=== PATIENT | female | born 1950 | race Caucasian/White ===

== ENCOUNTER 2018-01-18 13:50 | Emergency (ER) | payer MEDICARE, OTHER ==
[~2018-01-18] VITALS: Ht 157.5 cm; Wt 130.0 kg
[~2018-01-18 13:50] MED LIST: ACET-1693 PO; BP MED PO; CIPR-255 PO; ERGO500037 PO; FENO145T26 PO; FRS/40 PO; INSUINJ4 SQ; LUTE6TAB PO; MILK1CAP9 PO; NVLGI SC; NZRCR EXT; OMEG-112 PO; PANT40TA PO; VENL75CA73 PO
[2018-01-18 14:00] VITALS: Ht 157.5 cm; Wt 130.0 kg
--- NOTE | 2018-01-18 14:26 | EMERGENCY ROOM VISIT NOTE ---
History Report prepared by Anh: Cliff Romo Under the Supervision of: Dr. Osmar Mendez M.D. First contact with patient: 14:09 Chief Complaint: SWELLING TO EXTREMITY Stated Complaint: SWELLING IN LEGS AND HANDS History of Present Illness The patient is a 67 year old white female with a past medical history of DM2, CONDE, HTN, GERD, HLD, left ankle fusion three years ago, cholecystectomy, and appendectomy who presents to the ED with a cc of on and off leg swelling beginning a week ago which got red today. Positive itchiness. Negative fever, chills, leg pain, nausea, vomiting, and any recent traumas. She takes fluid pills in the morning and night, and she has not missed any doses, and there has been no changes recently. A week and a half ago she finished a round of doxycycline for a sinus infection. She has been following up with her GI, and she has no changes in medications She has not taken anything for the pain. The patient also notes that she started taking prednisone a few weeks ago but it was stopped two weeks ago. She recently had a long car ride. She has no history of blood clots in her legs or lungs, and she has no chest pain or shortness of breath. Source of History: patient Onset: a week ago Position: ankle (left) Quality: other (swelling and redness) Timing: other (on and off) Associated Symptoms: No fevers, No chills, No chest pain, No SOB, No nausea , No vomiting Note: Associated symptoms: Itchiness Review of Systems See HPI for pertinent positives and negatives. A total of ten systems were reviewed and were otherwise negative. Past Medical & Surgical Medical Problems: (1) Diabetes Family History Patient reports no known family medical history. Social History Smoking Status: Former Smoker Drug Use: none Housing Status: lives with family Occupation Status: retired Current/Historical Medications Scheduled Ciprofloxacin Hcl (Cipro), 1 TAB PO BID Clindamycin Hcl (Cleocin), 450 MG PO TID Ergocalciferol (Vitamin D 17881 Unit), 50,000 UNIT PO EVERY 2 WEEKS Fenofibrate (Tricor ), 145 MG PO DAILY Furosemide (Lasix), 40 MG PO BID Insulin Aspart (Novolog), 0 SC AC Insulin Glargine (Lantus Solostar Pen), 40 UNIT SQ AMPM Ketoconazole (Ketoconazole), 1 APPLN EXT BID Lutein-Zeaxanthin (Lutein W/Zeaxanthin), 1 TAB PO DAILY Milk Thistle (Silybum Marianum (Milk Thistle), 2,000 MG PO BID Ufsbh-9-Dool Ethyl Esters ([place]-3), 2 CAP PO BID Pantoprazole (Protonix), 40 MG PO DAILY Venlafaxine Hcl (Venlafaxine Extended Rel), 75 MG PO DAILY [Bp Med], 1 TAB PO DAILY Scheduled PRN Acetaminophen Tab (Tylenol), 650 MG PO Q6 PRN for Pain or Fever Allergies Coded Allergies: No Known Allergies (Unverified , 01/18/18) Physical Exam Vital Signs Date Time Temp Pulse Resp B/P (MAP) Pulse Ox O2 Delivery O2 Flow Rate FiO2 01/18/18 16:38 83 22 113/29 93 Room Air 01/18/18 16:08 127/57 01/18/18 16:06 88 23 90/37 96 Room Air 01/18/18 14:00 36.5 87 20 114/70 95 Room Air Physical Exam GENERAL: Awake, alert, well-appearing, NAD, obese, wearing glasses HENT: Normocephalic, atraumatic. EYES: Normal conjunctiva. Sclera non-icteric. PERRL. No anisocoria. NECK: Supple. No nuchal rigidity. FROM. RESPIRATORY: CTAB, no rhonchi, wheezing, crackles CARDIAC: RRR, no MRG ABDOMEN: Soft, NTND, BS+ MSK: No chest wall TTP, LLE has diffuse erythema with 3-4+ pitting edema. No calf pain. Negative Juanito's sign. No pain with palpation. Mildly pruritic. Erythema is blanching and shortened compared to the RLE. LLE is larger than the RLE. RLE has 2+ pitting edema. NEURO: GCS 15, CN 2-12 intact, moves all 4s on command SKIN: No rash or jaundice noted. Medical Decision & Procedures ER Provider Diagnostic Interpretation: Radiology results as stated below per my review and radiologist interpretation: LEFT LOWER EXTREMITY VENOUS DOPPLER HISTORY: LLE swelling, prior ankle fuision, L>R, recent 8 hr trip to [place] COMPARISON STUDY: None. FINDINGS: There is normal compressibility, flow, and augmentation within the left lower extremity deep venous system. Lower extremity subcutaneous edema is most pronounced within the ankle. IMPRESSION: No DVT within the left lower extremity. Electronically signed by: Duran Adhikari M.D. 01/18/2018 3:39 PM Dictated Date/Time: 01/18/2018 3:39 PM Laboratory Results 01/18/18 14:39 Red Blood Count 3.34, Mean Corpuscular Volume 101.5, Mean Corpuscular Hemoglobin 33.2, Mean Corpuscular Hemoglobin Concent 32.7, Mean Platelet Volume 9.7, Neutrophils (%) (Auto) 66.4, Lymphocytes (%) (Auto) 24.7, Monocytes (%) ( Auto) 7.1, Eosinophils (%) (Auto) 1.2, Basophils (%) (Auto) 0.2, Neutrophils # ( Auto) 3.45, Lymphocytes # (Auto) 1.28, Monocytes # (Auto) 0.37, Eosinophils # ( Auto) 0.06, Basophils # (Auto) 0.01 01/18/18 14:39 Test 01/18/18 14:39 White Blood Count 5.19 K/uL (4.8-10.8) Red Blood Count 3.34 M/uL (4.2-5.4) Hemoglobin 11.1 g/dL (12.0-16.0) Hematocrit 33.9 % (37-47) Mean Corpuscular Volume 101.5 fL (80-100) Mean Corpuscular Hemoglobin 33.2 pg (25-34) Mean Corpuscular Hemoglobin Concent 32.7 g/dl (32-36) Platelet Count 310 K/uL (130-400) Mean Platelet Volume 9.7 fL (7.4-10.4) Neutrophils (%) (Auto) 66.4 % Lymphocytes (%) (Auto) 24.7 % Monocytes (%) (Auto) 7.1 % Eosinophils (%) (Auto) 1.2 % Basophils (%) (Auto) 0.2 % Neutrophils # (Auto) 3.45 K/uL (1.4-6.5) Lymphocytes # (Auto) 1.28 K/uL (1.2-3.4) Monocytes # (Auto) 0.37 K/uL (0.11-0.59) Eosinophils # (Auto) 0.06 K/uL (0-0.5) Basophils # (Auto) 0.01 K/uL (0-0.2) RDW Standard Deviation 56.0 fL (36.4-46.3) RDW Coefficient of Variation 15.2 % (11.5-14.5) Immature Granulocyte % (Auto) 0.4 % Immature Granulocyte # (Auto) 0.02 K/uL (0.00-0.02) Prothrombin Time 11.1 SECONDS (9.0-12.0) Prothromb Time International Ratio 1.1 (0.9-1.1) Activated Partial Thromboplast Time 24.7 SECONDS (21.0-31.0) Partial Thromboplastin Ratio 1.0 Anion Gap 5.0 mmol/L (3-11) Est Creatinine Clear Calc Drug Dose 36.0 ml/min Estimated GFR () 30.4 Estimated GFR (Non- 26.3 BUN/Creatinine Ratio 10.9 (10-20) Calcium Level 9.7 mg/dl (8.5-10.1) Magnesium Level mg/dl (1.8-2.4) Total Bilirubin 0.6 mg/dl (0.2-1) Direct Bilirubin mg/dl (0-0.2) Aspartate Amino Transf (AST/SGOT) U/L (15-37) Alanine Aminotransferase (ALT/SGPT) 40 U/L (12-78) Alkaline Phosphatase 63 U/L (45-117) Total Protein 7.3 gm/dl (6.4-8.2) Albumin 3.0 gm/dl (3.4-5.0) Lipase 172 U/L (73-393) Laboratory results reviewed by me Medications Administered Medications (Trade) Dose Ordered Sig/Taina Route Start Time Stop Time Status Last Admin Dose Admin Diphenhydramine HCl (Benadryl Cap) 25 mg NOW ONCE PO 01/18/18 16:15 01/18/18 16:16 DC 01/18/18 16:15 25 MG Clindamycin Phosphate 600 mg/ Dextrose 54 ml @ 100 mls/hr ONE ONCE IV 01/18/18 16:15 01/18/18 16:47 01/18/18 16:15 100 MLS/HR ED Course 1409: The patient was evaluated in room C8. A complete history and physical exam was performed. 1626: I reevaluated the patient, and I updated her on the results. 1705: I reevaluated the patient. Discussed results and discharge instructions: she verbalized understanding and agreement. The patient is ready for discharge. Medical Decision Nursing notes reviewed. Ancillary studies and prior records reviewed. The patient is a 67 year old white female with a past medical history of DM2, CONDE, HTN, GERD, HLD, left ankle fusion three years ago, cholecystectomy, and appendectomy who presents to the ED with a cc of on and off leg swelling beginning a week ago which got red today. Differential diagnosis: Etiologies such as DVT, musculoskeletal, infection, joint effusion, trauma, lymphedema, idiopathic, cellulitis, abscess, MRSA infection, necrotizing fasciitis, dermatitis, drug eruption, as well as others were entertained.. Patient was seen and evaluated the bedside. Patient is noticed some worsening bilateral lower extremity swelling but worst in the left. Patient does have some persistent swelling from prior history of Conde and does take a diuretic. She takes this 40 mg twice daily Lasix. Patient denies any shortness of breath or chest pain. Patient did recently travel to [place] and approximate was in the car for 8 hours. No prior history of DVT or PE. Patient has had a prior left lower extremity ankle fracture and so does have some persistent left lower extremity greater than right lower extremity swelling. Patient did have blood work completed along with a DVT ultrasound. DVT ultrasound was negative. The patient's left lower extremity was placed in Roly wrap. She was given a first dose of antibiotics given that she does have a left lower extremity cellulitis. Patient does not complain of any pain in her left lower extremity just itching. Patient was also given some Benadryl. Patient's white blood cell count is within normal limits. Patient was told that she does have some CKD. For per priors her creat was 1.5 approximately 3 years ago today is 1.9. This is likely chronic change. Patient was told to wrap her left lower extremity to elevated. Patient was told to continue taking her antibiotics as prescribed. Patient was told that she may take an extra dose of her Lasix if she does notice weight gain and persistent swelling. Patient was told to follow-up with her PCP and return if she any worsening symptoms. Patient was given strict follow-up, discharge, and return precautions. All questions were answered. Patient was deemed suitable for outpatient follow-up at this time. Patient agreed with the plan of care and was safely discharged home. Medication Reconcilliation Current Medication List: was personally reviewed by me Blood Pressure Screening Patient's blood pressure: Normal blood pressure Impression Primary Impression: Swelling of left extremity Additional Impressions: Cellulitis CKD (chronic kidney disease) Anemia Scribe Attestation The scribe's documentation has been prepared under my direction and personally reviewed by me in its entirety. I confirm that the note above accurately reflects all work, treatment, procedures, and medical decision making performed by me. Departure Information Dispostion Home / Self-Care Prescriptions Clindamycin Hcl (CLEOCIN) 150 Mg Cap 450 MG PO TID for 5 Days, #45 CAP Prov: Osmar Mendez M.D. 01/18/18 Referrals Danilo Page M.D. (PCP) Forms HOME CARE DOCUMENTATION FORM, IMPORTANT VISIT INFORMATION, WORK / SCHOOL INSTRUCTIONS Patient Instructions Cellulitis - [facility], ED Leg Swelling Unilateral, ED RICE, [facility] Additional Instructions Please return to the emergency department if you have worsening or recurrent symptoms not amenable to at-home treatment. Please call for a follow-up appointment with her primary care physician. Please take your medications as prescribed. If you have other concerns and/or complaints please feel free to also call your primary care physician's office or return the ED for further evaluation, management, and treatment. Please follow-up for your chronic kidney disease. You may take her Lasix as prescribed. If you do you may take an extra dose but for no more than 2 consecutive days if he still have persistent swelling and weight gain. Please continue to wrap your lower extremities to help with lower externally swelling. Keep them propped up when you are sitting down. Take your medications as prescribed. If taking an antibiotic consider taking a probiotic and/or eating yogurt, but at the least, please take with food as it can cause upset stomach. You have been examined and treated today on an emergency basis only. This is not a substitute for, or an effort to provide, complete comprehensive medical care. It is impossible to recognize and treat all injuries or illnesses in a single emergency department visit. It is therefore important that you follow up closely with [facility], your PCP, and/or your specialist(s). Call as soon as possible for an appointment. Thank you for your time and consideration. I look forward to speaking with you again soon. Please don't hesitate to call us if you have any questions. Problem Qualifiers Additional Impressions: Cellulitis Site of cellulitis: extremity Site of cellulitis of extremity: lower extremity Laterality: left Qualified Codes: L03.116 - Cellulitis of left lower limb CKD (chronic kidney disease) Chronic kidney disease stage: stage 3 (moderate) Qualified Codes: N18.3 - Chronic kidney disease, stage 3 (moderate) Anemia Anemia type: unspecified type Qualified Codes: D64.9 - Anemia, unspecified
[2018-01-18 14:53] LABS: BASO % 0.2 %; BASO ABS # 0.01 K/uL (0-0.2); EOS % 1.2 %; EOS ABS # 0.06 K/uL (0-0.5); HEMATOCRIT 33.9 % (37-47); HEMOGLOBIN 11.1 g/dL (12.0-16.0); IG# 0.02 K/uL (0.00-0.02); LYMPH % 24.7 %; LYMPH ABS # 1.28 K/uL (1.2-3.4); MEAN CELL VOLUME 101.5 fL (80-100); MEAN CORPUSCULAR HEMOGLOBIN 33.2 pg (25-34); MEAN CORPUSCULAR HGB CONC 32.7 g/dl (32-36); MEAN PLATELET VOLUME 9.7 fL (7.4-10.4); MONO % 7.1 %; MONO ABS # 0.37 K/uL (0.11-0.59); NEUT % 66.4 %; NEUT ABS # 3.45 K/uL (1.4-6.5); PLATELET COUNT 310 K/uL (130-400); RED CELL DISTRIBUTION WIDTH CV 15.2 % (11.5-14.5); WHITE BLOOD COUNT 5.19 K/uL (4.8-10.8)
[2018-01-18 15:01] LABS: INR 1.1 (0.9-1.1); PTT PATIENT 24.7 SECONDS (21.0-31.0)
[2018-01-18 15:26] LABS: CALCIUM 9.7 mg/dl (8.5-10.1); CREATININE 1.91 mg/dl (0.60-1.20); TOTAL PROTEIN 7.3 gm/dl (6.4-8.2)
--- NOTE | 2018-01-18 15:41 | DIAGNOSTIC IMAGING REPORT ---
LEFT LOWER EXTREMITY VENOUS DOPPLER HISTORY: LLE swelling, prior ankle fuision, L>R, recent 8 hr trip to [place] COMPARISON STUDY: None. FINDINGS: There is normal compressibility, flow, and augmentation within the left lower extremity deep venous system. Lower extremity subcutaneous edema is most pronounced within the ankle. IMPRESSION: No DVT within the left lower extremity. Electronically signed by: Duran Adhikari M.D. 01/18/2018 3:39 PM Dictated Date/Time: 01/18/2018 3:39 PM
[2018-01-18] MEDS ORDERED: CLINDAMYCIN IV 600 MG in DEXTROSE 5% 50ML 50 ML IV ONE (16:15)
[2018-01-18] MEDS ORDERED: CLIN150C PO (16:46)
[2018-01-18] MEDS ORDERED: PROM25TA9 PO (17:10)
[2018-01-18] MEDS ORDERED: MULT-190 PO (17:10)
[2018-01-18] MEDS ORDERED: VENL75TA4 PO (17:10)
[2018-01-18] MEDS ORDERED: VALS-58 PO (17:10)
[2018-01-18] MEDS ORDERED: INSDGIPEN SC (17:13)
[2018-01-18] MEDS ORDERED: NVLGI/PEN (17:13)
[2018-01-18 17:39] VITALS: BP 142/60; PULSE 88; TEMP 36.5; O2SAT 93
== END 2018-01-18 17:40 | disposition home or self-care (01) ==
LOC: C.EDB 13:51 → C.EDC 17:40
DX: M79.89 Other specified soft tissue disorders (principal); L03.116 Cellulitis of left lower limb; N18.3 Chronic kidney disease, stage 3 (moderate); D64.9 Anemia, unspecified; E11.9 Type 2 diabetes mellitus without complications; Z87.891 Personal history of nicotine dependence; Z79.4 Long term (current) use of insulin

== ENCOUNTER 2018-01-24 12:22 | Emergency (ER) | payer MEDICARE ==
[~2018-01-24 12:22] MED LIST changes: -BP MED PO; -CIPR-255 PO; +CLIN150C PO; -FENO145T26 PO; +INSDGIPEN SC; -INSUINJ4 SQ; -LUTE6TAB PO; +MULT-190 PO; -NVLGI SC; +NVLGI/PEN; -NZRCR EXT; -OMEG-112 PO; +PROM25TA9 PO; +VALS-58 PO; -VENL75CA73 PO; +VENL75TA4 PO
[2018-01-24 12:24] VITALS: Ht 157.5 cm
--- NOTE | 2018-01-24 13:27 | EMERGENCY ROOM VISIT NOTE ---
History Report prepared by Anh: Anabelle Strong Under the Supervision of: Dr. Arnie Constantino M.D. First contact with patient: 12:44 Chief Complaint: SWELLING TO EXTREMITY Stated Complaint: SWELLING IN LEGS History of Present Illness The patient is a 67 year old female who presents to the Emergency Room with complaints of constant swelling in legs starting a week ago. The patient states that she was here on or Tuesday for the same thing. She reports that she had normal blood work and normal ultrasound. She states that she was given IV antibiotics and sent home on the oral version of the same one. She states that she was told to return to the ED if the symptoms did not improve within 4 days. The patient states that it has started oozing on her left leg and has gotten worse on the right leg. She notes that since the swelling started she has had severe dry skin. She states that it is very itchy. She reports that she tried using Benadryl spray with no relief, but got some relief from using the [place] spray. The patient notes that she did not follow up with her PCP, but has lost 17 lbs since being here last week. She notes that she did not change her dosage of Lasix and takes them in the morning and the evening. The patient complains of slight diarrhea, but thinks it is from antibiotics. The patient denies chest pain, shortness of breath, fevers, chills, nausea, and vomiting. The patient notes a history of Diabetes. Source of History: patient Onset: a week ago Position: leg (bilateral) Quality: other (swelling) Timing: constant Associated Symptoms: + diarrhea, No fevers, No chills, No chest pain, No SOB , No nausea, No vomiting Note: The patient complains of her left leg oozing and dry skin. Review of Systems See HPI for pertinent positives and negatives. A total of ten systems were reviewed and were otherwise negative. Past Medical & Surgical Medical Problems: (1) Diabetes (2) GERD (gastroesophageal reflux disease) (3) HTN (hypertension) (4) MCKENZIE (nonalcoholic steatohepatitis) Family History Patient reports no known family medical history. Social History Smoking Status: Never Smoker Drug Use: none Housing Status: lives with family Occupation Status: retired Current/Historical Medications Scheduled Clotrimazole Vaginal (Clotrimazole), 1 APPLN TOP BID Ergocalciferol (Vitamin D 07300 Unit), 50,000 UNIT PO EVERY 2 WEEKS Furosemide (Lasix), 40 MG PO BID Insulin Glargine (Lantus Solostar), 60 UNITS SC AMPM Milk Thistle (Silybum Marianum (Milk Thistle), 2,000 MG PO BID Ocuvite Preservision (Ocuvite Preservision), 1 TAB PO DAILY Pantoprazole (Protonix), 40 MG PO DAILY Saccharomyces Boulardii (Florastor), 1 CAP PO BID Sulfamethoxazole-Trimethoprim (Bactrim Ds 800MG/160MG), 1 TAB PO BID Valsartan (Valsartan), 160 MG PO HS Venlafaxine Hcl (Effexor), 75 MG PO QAM Scheduled PRN Acetaminophen Tab (Tylenol), 650 MG PO Q6 PRN for Pain or Fever Diphenhydramine Hcl (Sleep) (Diphenhydramine Hcl), 1 TAB PO QID PRN for Itching Promethazine Hcl (Phenergan), 25 MG PO Q6H PRN for Nausea Ranitidine Hcl (Zantac), 150 MG PO BID PRN for Itching Miscellaneous Medications Insulin Aspart (Novolog Flexpen) Allergies Coded Allergies: No Known Allergies (Unverified , 01/24/18) Physical Exam Vital Signs Date Time Temp Pulse Resp B/P (MAP) Pulse Ox O2 Delivery O2 Flow Rate FiO2 01/24/18 18:19 82 18 142/73 98 01/24/18 16:40 83 24 156/60 97 Room Air 01/24/18 16:00 36.7 91 17 110/59 96 01/24/18 12:24 36.5 92 18 112/47 94 Room Air Physical Exam GENERAL: Awake, alert, well-appearing, in no distress HENT: Normocephalic, atraumatic. Dry mucus membranes. EYES: Normal conjunctiva. Sclera non-icteric. NECK: Supple. No nuchal rigidity. FROM. No JVD. RESPIRATORY: Clear to auscultation. CARDIAC: Regular rate, normal rhythm. Extremities warm and well perfused. Pulses equal. ABDOMEN: Soft, non-distended. No tenderness to palpation. No rebound or guarding. No masses. RECTAL: Deferred. MUSCULOSKELETAL: Chest examination reveals no tenderness. The back is symmetrical on inspection without obvious abnormality. There is no CVA tenderness to palpation. No joint edema. LOWER EXTREMITIES: Calves are equal size bilaterally and non-tender. 2+ edema with mild erythema and warmth. NEURO: Normal sensorium. No sensory or motor deficits noted. SKIN: No rash or jaundice noted. Medical Decision & Procedures Laboratory Results 01/24/18 13:25 Red Blood Count 3.18, Mean Corpuscular Volume 102.5, Mean Corpuscular Hemoglobin 33.0, Mean Corpuscular Hemoglobin Concent 32.2, Mean Platelet Volume 9.6, Neutrophils (%) (Auto) 54.7, Lymphocytes (%) (Auto) 31.3, Monocytes (%) ( Auto) 11.4, Eosinophils (%) (Auto) 1.6, Basophils (%) (Auto) 0.5, Neutrophils # (Auto) 3.07, Lymphocytes # (Auto) 1.76, Monocytes # (Auto) 0.64, Eosinophils # ( Auto) 0.09, Basophils # (Auto) 0.03 01/24/18 13:25 Test 01/24/18 13:25 01/24/18 16:38 White Blood Count 5.62 K/uL (4.8-10.8) Red Blood Count 3.18 M/uL (4.2-5.4) Hemoglobin 10.5 g/dL (12.0-16.0) Hematocrit 32.6 % (37-47) Mean Corpuscular Volume 102.5 fL (80-100) Mean Corpuscular Hemoglobin 33.0 pg (25-34) Mean Corpuscular Hemoglobin Concent 32.2 g/dl (32-36) Platelet Count 340 K/uL (130-400) Mean Platelet Volume 9.6 fL (7.4-10.4) Neutrophils (%) (Auto) 54.7 % Lymphocytes (%) (Auto) 31.3 % Monocytes (%) (Auto) 11.4 % Eosinophils (%) (Auto) 1.6 % Basophils (%) (Auto) 0.5 % Neutrophils # (Auto) 3.07 K/uL (1.4-6.5) Lymphocytes # (Auto) 1.76 K/uL (1.2-3.4) Monocytes # (Auto) 0.64 K/uL (0.11-0.59) Eosinophils # (Auto) 0.09 K/uL (0-0.5) Basophils # (Auto) 0.03 K/uL (0-0.2) RDW Standard Deviation 54.3 fL (36.4-46.3) RDW Coefficient of Variation 14.6 % (11.5-14.5) Immature Granulocyte % (Auto) 0.5 % Immature Granulocyte # (Auto) 0.03 K/uL (0.00-0.02) Anion Gap 6.0 mmol/L (3-11) Estimated GFR () 30.6 Estimated GFR (Non- 26.4 BUN/Creatinine Ratio 15.7 (10-20) Calcium Level 9.6 mg/dl (8.5-10.1) Total Bilirubin 0.5 mg/dl (0.2-1) Direct Bilirubin 0.2 mg/dl (0-0.2) Aspartate Amino Transf (AST/SGOT) 23 U/L (15-37) Alanine Aminotransferase (ALT/SGPT) 27 U/L (12-78) Alkaline Phosphatase 57 U/L (45-117) Troponin I < 0.015 ng/ml (0-0.045) Pro-B-Type Natriuretic Peptide 258 pg/ml (0-900) Total Protein 7.5 gm/dl (6.4-8.2) Albumin 3.1 gm/dl (3.4-5.0) Lipase 177 U/L (73-393) Bedside Glucose 216 mg/dl (70-90) Laboratory results reviewed by me Medications Administered Medications (Trade) Dose Ordered Sig/Taina Route Start Time Stop Time Status Last Admin Dose Admin Doxycycline Hyclate (Vibramycin Cap) 100 mg ONE STAT PO 01/24/18 14:49 01/24/18 14:51 DC 01/24/18 15:53 100 MG Clotrimazole (Lotrimin 1% Crm) 1 appln NOW STAT EXT 01/24/18 14:50 01/24/18 14:52 DC 01/24/18 15:53 1 APPLN Amoxicillin (Amoxicillin Susp) 17.5 ml 1449 PO 01/24/18 14:49 01/24/18 19:10 DC 01/24/18 15:53 17.5 ML Dexamethasone Sodium Phosphate (Dexamethasone Inj Pf) 10 mg NOW STAT IM 01/24/18 16:33 01/24/18 16:36 DC 01/24/18 16:41 10 MG Diphenhydramine HCl (Benadryl Inj) 25 mg NOW STAT IM 01/24/18 16:33 01/24/18 16:36 DC 01/24/18 16:41 25 MG Ranitidine HCl (zANTac TAB) 150 mg NOW ONCE PO 01/24/18 18:15 01/24/18 18:16 DC 01/24/18 18:14 150 MG ED Course 1246: The patient was evaluated in room B6. A complete history and physical exam was performed. 1505: I reevaluated the patient and she does not want any testing done. Discussed results and discharge instructions: She verbalized understanding and agreement. The patient is ready for discharge. 1628: The patient returned to the ED for an allergic reaction. Upon reevaluation , the patient has hives. We are going to watch her for a while and if she gets better, she will be discharged home. 1814: I reevaluated the patient and she is resting comfortably. Discussed results and discharge instructions: She verbalized understanding and agreement. The patient is ready for discharge. Medical Decision I reviewed the patient's past medical history, medications, and the nursing notes as described above. Differential diagnosis: Etiologies such as cellulitis, abscess, MRSA infection, DVT, necrotizing fasciitis, dermatitis, drug eruption, as well as others were entertained. The patient is a 67 y/o woman with a pmhx of IDDM2, HTN, MCKENZIE, lower extremity edema who presents to the emergency department with persistent swelling and redness to lower legs after being seen in the ED on 01/18 treated for cellulitis with IV then PO Clindamycin per HPI. Of note, the patient had negative duplex on 01/18. On arrival the patient is in NAD, AFVSS. 2+ edema with mild erythema and warmth, also with scaly plaques and desquamation of feet c/w tinea. WBC, Troponin, BNP wnl. Patient refusing CXR and EKG. Plan to change coverage initially to Amoxicillin and doxycycline however upon discharge patient began to have sx of allergic reaction including pruritis with patches of urticaria and report of lip swelling. Lungs clear without oropharyngeal edema. Given Dexamethasone and Benadryl with good effect and resolution of sx. Unclear etiology to allergic reaction. Likely Amox given patient reports taking Doxy in the past. Thus, abx changed to Bactrim only. Will also treat topically for tinea. Wound clinic referral to help with management of edema/cellulitis. Findings and plan for follow-up reviewed with patient. Patient agreeable and d/c 'd per discharge instructions. Medication Reconcilliation Current Medication List: was personally reviewed by me Blood Pressure Screening Patient's blood pressure: Low blood pressure Blood pressure disposition: Did not require urgent referral Impression Primary Impression: Bilateral cellulitis of lower leg Additional Impressions: Tinea pedis Bilateral lower extremity edema Allergic reaction Scribe Attestation The scribe's documentation has been prepared under my direction and personally reviewed by me in its entirety. I confirm that the note above accurately reflects all work, treatment, procedures, and medical decision making performed by me. Departure Information Dispostion Home / Self-Care Prescriptions Diphenhydramine Hcl (Sleep) (DIPHENHYDRAMINE HCL) 50 Mg Tab 1 TAB PO QID Y for Itching for 7 Days, #30 TAB Prov: Arnie Constantino M.D. 01/24/18 Ranitidine Hcl (ZANTAC) 150 Mg Tab 150 MG PO BID Y for Itching for 7 Days, #14 TAB Prov: Arnie Constantino M.D. 01/24/18 Sulfamethoxazole-Trimethoprim (Bactrim Ds 800MG/160MG) 1 Tab Tab 1 TAB PO BID for 10 Days, #20 TAB Prov: Arnie Constantino M.D. 01/24/18 Clotrimazole Vaginal (CLOTRIMAZOLE) 1 % Cre 1 APPLN TOP BID for 10 Days, #1 TUBE Prov: Arnie Constantino M.D. 01/24/18 Saccharomyces Boulardii (Florastor) 250 Mg Cap 1 CAP PO BID for 10 Days, #20 CAP Prov: Arnie Constantino M.D. 01/24/18 Referrals No Doctor, Assigned (PCP) Forms HOME CARE DOCUMENTATION FORM, IMPORTANT VISIT INFORMATION, WORK / SCHOOL INSTRUCTIONS Patient Instructions ED Infec Skin Cellulitis, ED Infec Skin Fungal Tinea, My [facility] Additional Instructions Please follow up with your primary care physician and wound clinic in the next 1 -3 days for re-evaluation. You have a bacterial skin infection with a likely superimposed fungal infection. Otherwise, your exam and lab results did not show signs of an emergent condition at this time. Discontinue your current antibiotic. Begin Bactrim as prescribed. Florastor, probiotic, to help prevent antibiotic associated diarrhea. Continue your Lasix as prescribed. Use compression stockings or Roly bandages to help with swelling and elevate your legs whenever possible. Zantac and Benadryl as directed as needed for any itching or rash. Return to the emergency department for worsening symptoms as described in the accompanying instructions. Problem Qualifiers
[2018-01-24 13:32] LABS: BASO % 0.5 %; BASO ABS # 0.03 K/uL (0-0.2); EOS % 1.6 %; EOS ABS # 0.09 K/uL (0-0.5); HEMATOCRIT 32.6 % (37-47); HEMOGLOBIN 10.5 g/dL (12.0-16.0); IG# 0.03 K/uL (0.00-0.02); LYMPH % 31.3 %; LYMPH ABS # 1.76 K/uL (1.2-3.4); MEAN CELL VOLUME 102.5 fL (80-100); MEAN CORPUSCULAR HGB CONC 32.2 g/dl (32-36); MEAN PLATELET VOLUME 9.6 fL (7.4-10.4); MONO % 11.4 %; MONO ABS # 0.64 K/uL (0.11-0.59); NEUT % 54.7 %; NEUT ABS # 3.07 K/uL (1.4-6.5); PLATELET COUNT 340 K/uL (130-400); RED CELL DISTRIBUTION WIDTH CV 14.6 % (11.5-14.5); RED CELL DISTRIBUTION WIDTH SD 54.3 fL (36.4-46.3); WHITE BLOOD COUNT 5.62 K/uL (4.8-10.8)
[2018-01-24 13:49] LABS: ALBUMIN 3.1 gm/dl (3.4-5.0); ALT/SGPT 27 U/L (12-78); AST/SGOT 23 U/L (15-37); BLOOD UREA NITROGEN 30 mg/dl (7-18); CALCIUM 9.6 mg/dl (8.5-10.1); CARBON DIOXIDE 31 mmol/L (21-32); GLUCOSE 164 mg/dl (70-99); LIPASE 177 U/L (73-393); POTASSIUM 4.2 mmol/L (3.5-5.1); SODIUM 136 mmol/L (136-145)
[2018-01-24 13:54] LABS: ALKALINE PHOSPHATASE 57 U/L (45-117); TOTAL PROTEIN 7.5 gm/dl (6.4-8.2)
[2018-01-24] MEDS ORDERED: AMOXICILLIN SUSP 250 MG/5 ML 100 ML BTL PO SCH (14:49)
[2018-01-24] MEDS ORDERED: DOXYCYCLINE HYCLATE 100 MG CAP PO STA (14:49)
[2018-01-24] MEDS ORDERED: AMOXICILLIN 250 MG CAP PO STA (14:49)
[2018-01-24] MEDS ORDERED: CLOTRIMAZOLE 1% CR 15 GM TUBE EXT STA (14:50)
[2018-01-24] MEDS ORDERED: AMX875 PO (14:57)
[2018-01-24] MEDS ORDERED: DXY100 PO (14:57)
[2018-01-24] MEDS ORDERED: SACC250C3 PO (14:57)
[2018-01-24] MEDS ORDERED: CLOT1CRE3 TOP (15:09)
[2018-01-24 16:00] VITALS: TEMP 36.7
[2018-01-24] MEDS ORDERED: DEXAMETHASONE **PF** INJ 10 MG/ML VIAL IM STA (16:33)
[2018-01-24] MEDS ORDERED: DiphenhydrAMINE HCL 50 MG/ML VIAL IM STA (16:33)
[2018-01-24] MEDS ORDERED: SULF800T23 PO (18:09)
[2018-01-24] MEDS ORDERED: DIPH50TA10 PO (18:12)
[2018-01-24] MEDS ORDERED: RANI150T3 PO (18:12)
[2018-01-24] MEDS ORDERED: RANITIDINE HCL 150 MG TAB PO ONE (18:15)
[2018-01-24 18:19] VITALS: BP 142/73; PULSE 82; O2SAT 98
== END 2018-01-24 18:21 | disposition home or self-care (01) ==
LOC: C.EDB 12:23
DX: L03.115 Cellulitis of right lower limb (principal); L03.116 Cellulitis of left lower limb; B35.3 Tinea pedis; T78.40XA Allergy, unspecified, initial encounter; X58.XXXA Exposure to other specified factors, initial encounter; E11.9 Type 2 diabetes mellitus without complications; K21.9 Gastro-esophageal reflux disease without esophagitis; I10 Essential (primary) hypertension; K75.81 Nonalcoholic steatohepatitis (NASH); Z79.4 Long term (current) use of insulin; Z79.899 Other long term (current) drug therapy

== ENCOUNTER 2022-05-19 13:27 | Inpatient (IN) ==
[2022-05-19] MEDS ORDERED: ONDANSETRON INJ 2 MG/ML 2 ML VIAL IV STA (15:16)
[2022-05-19] MEDS ORDERED: SODIUM CHLORIDE 0.9% 1000ML 500 ML IV ONE (15:16)
--- NOTE | 2022-05-19 15:36 | Emergency Department Note ---
Impression & Plan Hypercalcemia, CKD (chronic kidney disease) stage 3, GFR 30-59 ml/min, Breast cancer, Weakness ED Provider Note Provider: Jose G Stanford MD DATE OF SERVICE: 05/19/2022 CHIEF COMPLAINT: High calcium, decreased appetite, dizzy HISTORY OF PRESENT ILLNESS: Patient is a 72-year-old female history of left- sided breast cancer, Conde, GERD, CKD, hypertension, type 2 diabetes on insulin presenting here today referred by her outpatient doctors office. Had basic routine blood work 2 days ago. Following with oncology in [place] for breast cancer. Currently on chemotherapy and estrogen options with this. Noted to have a high calcium level on Tuesday blood work. Yesterday not really eating m uch and then today continuing not to eat much but also feel a bit dizzy and maybe little bit of nausea. No falls reported. No fever reported. Denies abdominal pain or chest pain. Patient states she has been urinating not quite as much. She is on Lasix at home 40 in the morning and 20 at night. Referred by primary doctor's office given the high calcium level and her symptoms today. Does follow with nephrology locally. REVIEW OF SYSTEMS: A total of 10 review of systems was obtained and negative except as stated above in the HPI. PAST MEDICAL HISTORY: As noted above MEDICATIONS: Reviewed home medication list SOCIAL HISTORY: Non-smoker PHYSICAL EXAM: GENERAL: alert and oriented in no acute distress on stretcher Head: normocephalic and atraumatic EYES: No injection, discharge or icterus. NECK: Trachea midline. Supple. ENT: Mucous membranes pink and moist. LUNGS: Airway patent. No retractions. Breath sounds clear HEART: Regular rate and rhythm. No chest wall tenderness ABDOMEN: Soft and non-tender, without guarding or rebound. SKIN: Acyanotic, warm, dry, without rashes EXTREMITIES: Without swelling, tenderness or deformity NEUROLOGICAL: No focal deficits. No aphasia. No facial droop or slurred speech. Ambulatory. EK bpm sinus rhythm without PVC. There is some artifact in the lateral leads. No clear acute ST segment elevation with a nonspecific intraventricular conduction delay. QTc 422. CONTINUOUS CARDIAC MONITORING: was ordered and showed a heart rate of 50s-60s bpm in normal sinus rhythm to sinus bradycardia Patient's laboratory studies and imaging reviewed. Differential includes Infection, dehydration, metabolic abnormality, hypo/hyperglycemia, electrolyte disturbance, anemia, hypoxia, cardiac sources, intracerebral event, toxicologic, neurologic, as well as other pathologies. IMPRESSION/MEDICAL DECISION MAKING: Patient currently on chemotherapy agents regarding breast cancer now with hypercalcemia and feeling off fatigued dizzy with maybe a little bit of nausea. Given some IV fluid and Zofran here initially. Labs rechecked for today's levels. Is on Lasix at home. CT head here without acute findings per radiology. Stable mild leukopenia. Stable mild anemia. Stable chronic hyponatremia. Stable CKD. Calcium 12.3 not far off value of 12.4 on Tuesday. Discussed with the patient given the significant elevation or symptoms would recommend that she stay overnight for further care of her hypercalcemia especially as she has had some decreased appetite and feeling a bit off. Hypercalemia likely secondary to her oncological process. Hospitalist contacted. Did receive some IV fluids here. DIAGNOSIS: Hypercalcemia, dizziness, decreased intake DISPOSITION: Hospitalist will evaluate Patient was agreeable with this plan. Past Med/Surg History Medical History (Updated 05/19/22 @ 20:32 by Jose G Stanford M.D.) JEFFREY (acute kidney injury) post-operative 2017 - short term dialysis Breast cancer diagnosed 2020 Candidal intertrigo Chronic diastolic congestive heart failure Chronic stasis dermatitis CKD (chronic kidney disease) stage 3, GFR 30-59 ml/min Crystal arthropathy Dyslipidemia GERD (gastroesophageal reflux disease) HTN (hypertension) Hyperuricemia CONDE (nonalcoholic steatohepatitis) Seborrheic dermatitis Statin myopathy Type 2 diabetes mellitus Vitamin D deficiency Surgical History History of appendectomy History of tonsillectomy and adenoidectomy Humerus fracture surgical repair Hx of cholecystectomy Family History Father Depression Diabetes Mother Hypertension Kidney stones Gallbladder disease Denies family history of Ovarian cancer Prostate cancer Myocardial infarction Breast cancer Colorectal cancer Social History Smoking Status: Never smoker Second Hand Exposure: No; Hx Alcohol Use: No Hx Substance Use: No Preferred Language: Cypriot Visual Impairment: Limited Hearing Ability: Normal marital status: Current Living Situation: Spouse 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 cephalexin [From Keflex] Allergy skin Verified 05/19/22 17:29 starts to peel off sulfamethoxazole Allergy Unknown Verified 05/19/22 17:29 [From Bactrim] trimethoprim [From Bactrim] Allergy Unknown Verified 05/19/22 17:29 atorvastatin AdvReac Myalgia Verified 05/19/22 17:29 Home Meds Home Medications Medication Instructions Recorded Confirmed vitamins A,C,O-chfx-xuhoup 2,148 1 tab PO DAILY 05/02/19 05/19/22 mcg-113 mg-45 mg-17.4 mg tablet aspirin 81 mg tablet,delayed 81 mg PO DAILY 11/23/19 05/19/22 release (Adult Aspirin Regimen) anastrozole 1 mg tablet 1 mg PO DAILY 05/19/22 05/19/22 furosemide 20 mg tablet 20 mg PO QPM 05/19/22 05/19/22 palbociclib 125 mg tablet (Ibrance) 125 mg PO UD 05/19/22 05/19/22 tramadol 50 mg tablet 50 mg PO Q6 PRN Pain 05/19/22 05/19/22 Previous Rx's Medication Instructions Recorded promethazine 25 mg tablet 25 mg PO Q6H PRN nausea #30 tabs 08/17/19 pen needle, diabetic 32 gauge x #600 ea 11/07/20" (BD Ultra-Fine Sheila Pen Needle) insulin aspart U-100 100 unit/mL See Rx Instructions subcut 04/29/21 (3 mL) subcutaneous pen (Novolog .COMPLEX #135 mL Flexpen U-100 Insulin aspart) fluconazole 150 mg tablet 150 mg PO Q72H PRN yeast infection 06/10/21 (Diflucan) #2 tabs omega-3 fatty acids 1,000 mg 2,000 mg PO BID #360 caps 09/07/21 capsule allopurinol 100 mg tablet 50 mg PO DAILY #45 tabs 11/17/21 spironolactone 25 mg tablet 12.5 mg PO DAILY #45 tabs 11/17/21 fenofibrate nanocrystallized 145 145 mg PO DAILY #90 tabs 03/23/22 mg tablet cyclobenzaprine 5 mg tablet 5 mg PO TID PRN muscle spasm #30 03/30/22 tabs venlafaxine 75 mg capsule,extended 75 mg PO DAILY #90 caps 04/07/22 release 24 hr furosemide 40 mg tablet 40 mg PO DAILY #90 tabs 04/13/22 insulin glargine 100 unit/mL (3 60 unit (0.6 mL) subcut BID #108 mL 04/27/22 mL) subcutaneous pen (Lantus Solostar U-100 Insulin) tramadol 50 mg tablet 50 mg PO Q6H PRN pain #30 tabs 05/18/22 Results & Data (ED) Vital Signs Vital Signs - 24 hr 05/19/22 13:35 Temperature 36.7 C Temperature Source Temporal Artery Scan Pulse Rate 58 L Respiratory Rate 18 Respiratory Effort / Characteristics Non-Labored Spontaneous Respiratory Depth Normal Respiratory Pattern Regular Blood Pressure 170/62 H Blood Pressure Mean 98 Pulse Oximetry 93 Oxygen Delivery Method Room Air Sepsis Recent Fever Within 48 Hours No Sepsis New/Unexplained Change in Mental Status No Sepsis Action Taken by Nursing No Action Required Laboratory Data Result diagrams: 05/19/22 16:33 05/19/22 16:33 Lab Results 05/19/22 05/19/22 05/19/22 Range/Units 16:33 16:33 16:33 WBC 4.42 L (4.8-10.8) K/ul RBC 2.56 L (3.93-5.22) M/uL Hgb 9.1 L (12.0-16.0) g/dl Hct 27.3 L (34.1-44.9) % MCV 106.6 H (80.0-100.0) fL MCH 35.5 H (25.0-34.0) pg MCHC 33.3 (32.0-36.0) g/dL RDW Std Deviation 69.0 H (36.4-46.3) fL RDW Coeff of Amparo 17.9 H (11.5-14.5) % Plt Count 192 (130-400) K/uL MPV 10.2 (9.4-12.3) fL Immature Gran % (Auto) 0.7 % Neut % (Auto) 77.6 % Lymph % (Auto) 15.4 % [place] % (Auto) 4.5 % Eos % (Auto) 0.9 % Baso % (Auto) 0.9 % Reticulocyte % (Auto) 2.1 H (0.5-2.0) % Neut # (Auto) 3.43 (1.4-6.5) K/uL Lymph # (Auto) 0.68 L (1.2-3.4) K/uL [place] # (Auto) 0.20 L (0.24-0.82) K/uL Eos # (Auto) 0.04 (0-0.50) K/uL Baso # (Auto) 0.04 (0-0.2) K/uL Reticulocyte # 0.06 (0.02-0.10) 10^6/uL Immature Gran # (Auto) 0.03 H (0.00-0.02) K/uL Polychromasia 1+ Anisocytosis Present Sodium 130 L (136-145) mmol/L Potassium 4.2 (3.5-5.1) mmol/L Chloride 95 L (98-107) mmol/L Carbon Dioxide 26 (21-32) mmol/L Anion Gap 9 (3-11) BUN 46 H (6-23) mg/dl Creatinine 3.56 H (0.6-1.2) mg/dl Est Cr Clr Drug Dosing Not Reportable Est GFR ( Amer) 13.8 ml/min Est GFR (Non-Af Amer) 11.9 ml/min BUN/Creatinine Ratio 12.9 (10-20) Glucose 149 H (70-99(Fasting)) mg/dl Calcium 12.3 H* (8.5-10.1) mg/dl Phosphorus 4.7 (2.5-4.9) mg/dl Magnesium 2.4 (1.7-2.4) mg/dl Total Bilirubin 1.1 H (0.2-1.0) mg/dl AST 12 L (13-39) U/L ALT 11 (7-52) U/L Alkaline Phosphatase 67 (34-104) U/L Total Protein 7.8 (6.0-8.3) gm/dl Albumin 3.8 (3.4-5.0) gm/dl Globulin 4.0 (2.5-4.0) gm/dl Albumin/Globulin Ratio 1.0 (0.9-2) TSH 1.171 (0.300-4.500) uIu/ml PTH Intact (12.0-88.0) pg/ml SARS-CoV-2, RNA, NAAT (NEGATIVE) 05/19/22 05/19/22 Range/Units 16:33 16:34 WBC (4.8-10.8) K/ul RBC (3.93-5.22) M/uL Hgb (12.0-16.0) g/dl Hct (34.1-44.9) % MCV (80.0-100.0) fL MCH (25.0-34.0) pg MCHC (32.0-36.0) g/dL RDW Std Deviation (36.4-46.3) fL RDW Coeff of Amparo (11.5-14.5) % Plt Count (130-400) K/uL MPV (9.4-12.3) fL Immature Gran % (Auto) % Neut % (Auto) % Lymph % (Auto) % [place] % (Auto) % Eos % (Auto) % Baso % (Auto) % Reticulocyte % (Auto) (0.5-2.0) % Neut # (Auto) (1.4-6.5) K/uL Lymph # (Auto) (1.2-3.4) K/uL [place] # (Auto) (0.24-0.82) K/uL Eos # (Auto) (0-0.50) K/uL Baso # (Auto) (0-0.2) K/uL Reticulocyte # (0.02-0.10) 10^6/uL Immature Gran # (Auto) (0.00-0.02) K/uL Polychromasia Anisocytosis Sodium (136-145) mmol/L Potassium (3.5-5.1) mmol/L Chloride (98-107) mmol/L Carbon Dioxide (21-32) mmol/L Anion Gap (3-11) BUN (6-23) mg/dl Creatinine (0.6-1.2) mg/dl Est Cr Clr Drug Dosing Est GFR ( Amer) ml/min Est GFR (Non-Af Amer) ml/min BUN/Creatinine Ratio (10-20) Glucose (70-99(Fasting)) mg/dl Calcium (8.5-10.1) mg/dl Phosphorus (2.5-4.9) mg/dl Magnesium (1.7-2.4) mg/dl Total Bilirubin (0.2-1.0) mg/dl AST (13-39) U/L ALT (7-52) U/L Alkaline Phosphatase (34-104) U/L Total Protein (6.0-8.3) gm/dl Albumin (3.4-5.0) gm/dl Globulin (2.5-4.0) gm/dl Albumin/Globulin Ratio (0.9-2) TSH (0.300-4.500) uIu/ml PTH Intact 11.6 L (12.0-88.0) pg/ml SARS-CoV-2, RNA, NAAT NEGATIVE (NEGATIVE) Administered Medications Discontinued Medications Sodium Chloride (Nss 1000ml) 500 mls @ 999 mls/hr IV .Q31M ONE Stop: 05/19/22 15:46 Last Infusion: 05/19/22 17:25 Dose: 0 mls/hr Documented By: Admin: 05/19/22 16:48 Dose: 999 mls/hr Documented By: KT Parenteral Electrolytes (Normosol-R) 1,000 mls @ 999 mls/hr IV .Q1H1M ONE Stop: 05/19/22 19:32 Last Admin: 05/19/22 19:41 Dose: 999 mls/hr Documented By: QGV Ondansetron HCl (Ondansetron Inj 2 Mg/Ml 2 Ml Vial) 4 mg IV NOW STA Stop: 05/19/22 15:17 Last Admin: 05/19/22 16:48 Dose: Not Given Documented By: KT Imaging Data Radiologist's Impression: Head CT 05/19/22 15:04 CT SCAN OF THE BRAIN WITHOUT IV CONTRAST CLINICAL HISTORY: Dizziness. COMPARISON STUDY: No priors. TECHNIQUE: Unenhanced axial CT scan of the brain is performed from the vertex to the skull base. A dose lowering technique was utilized adhering to the principles of ALARA. CT DOSE: 687.98 mGy.cm FINDINGS: Brain parenchyma: There is age-related involutional change noting mild subcortical and periventricular microangiopathic disease. There is no hemorrhage, mass effect, or evidence of acute territorial ischemia by CT criteria. [place]-white matter differentiation is preserved. No extra-axial fluid collection is seen. Ventricles, sulci, cisterns: Prominent secondary to involutional change. Intracranial vasculature: There is atherosclerotic calcification of the cavernous carotid and vertebral arteries. Calvarium: Unremarkable. Sinuses and mastoids: The paranasal sinuses are clear. The mastoid air cells are well pneumatized. Orbits: The bony orbits are grossly intact. There are bilateral ocular lens implants. IMPRESSION: There is no hemorrhage, mass effect, or evidence of acute territorial ischemia by CT criteria. ACT 112: Negative or not required by law. Electronically signed by: Sukh Hilario M.D. 05/19/2022 3:53 PM Discharge Plan Visit Data Chief Complaint: Abnormal Labs/Diagnostic Testing Stated Complaint: CALCIUM LEVEL 6.3 ED Provider: Jose G Stanford Discharge Problem: Hypercalcemia, CKD (chronic kidney disease) stage 3, GFR 30-59 ml/min, Breast cancer, Weakness Patient Disposition: Being Evaluated by Hospitalist Forms Stand Alone Forms: My [facility] [employer] Prescriptions Prescriptions: No Action (DME) pen needle, diabetic [BD Ultra-Fine Sheila Pen Needle] 32 gauge x 5/32" needle See Rx Instructions .ROUTE .MEDSUPPLY Qty: 600 5RF Rx Instructions: use 10 times daily Novolog Flexpen U-100 Insulin 100 unit/mL (3 mL) insulin pen See Rx Instructions SQ .COMPLEX Qty: 135 5RF Dose Instruction: inject SQ up to 225 units daily per sliding scale ; Rx Instructions: inject SQ up to 225 units daily per sliding scale ; omega-3 fatty acids 1,000 mg capsule 2,000 mg PO BID Qty: 360 3RF allopurinol 100 mg tablet 50 mg PO DAILY Qty: 45 3RF spironolactone 25 mg tablet 12.5 mg PO DAILY Qty: 45 3RF fenofibrate nanocrystallized 145 mg tablet 145 mg PO DAILY Qty: 90 3RF Hold Instructions: Home Medication placed on hold at Doctor's office cyclobenzaprine 5 mg tablet 5 mg PO TID PRN (Reason: muscle spasm) Qty: 30 0RF venlafaxine 75 mg capsule,extended release 24hr 75 mg PO DAILY Qty: 90 3RF furosemide 40 mg tablet 40 mg PO DAILY Qty: 90 3RF Rx Instructions: Take 1 tablets every morning in addition to 20mg tablet in the evening. Total 60mg daily insulin glargine [Lantus Solostar U-100 Insulin] 100 unit/mL (3 mL) insulin pen 60 unit SQ BID Qty: 108 3RF tramadol 50 mg tablet 50 mg PO Q6H PRN (Reason: pain) Qty: 30 0RF vitamins A,C,I-trcw-fzjmor 7,160-113-100 yecs-fj-tmzc tablet 1 tab PO DAILY fluconazole [Diflucan] 150 mg tablet 150 mg PO Q72H PRN (Reason: yeast infection) Qty: 2 5RF promethazine 25 mg tablet 25 mg PO Q6H PRN (Reason: nausea) Qty: 30 5RF aspirin [Adult Aspirin Regimen] 81 mg tablet,delayed release (DR/EC) 81 mg PO DAILY tramadol 50 mg tablet 50 mg PO Q6 PRN (Reason: Pain) anastrozole 1 mg tablet 1 mg PO DAILY Ibrance 125 mg tablet 125 mg PO UD furosemide 20 mg tablet 20 mg PO QPM Referrals Referrals: Pat Alejandre MD [Primary Care Provider] -
--- NOTE | 2022-05-19 15:55 | CT Scan Report ---
CT SCAN OF THE BRAIN WITHOUT IV CONTRAST CLINICAL HISTORY: Dizziness. COMPARISON STUDY: No priors. TECHNIQUE: Unenhanced axial CT scan of the brain is performed from the vertex to the skull base. A do se lowering technique was utilized adhering to the principles of ALARA. CT DOSE: 687.98 mGy.cm FINDINGS: Brain parenchyma: There is age-related involutional change noting mild subcortical and periventricula r microangiopathic disease. There is no hemorrhage, mass effect, or evidence of acute territorial isc hemia by CT criteria. [place]-white matter differentiation is preserved. No extra-axial fluid collection is seen. Ventricles, sulci, cisterns: Prominent secondary to involutional change. Intracranial vasculature: There is atherosclerotic calcification of the cavernous carotid and vertebr al arteries. Calvarium: Unremarkable. Sinuses and mastoids: The paranasal sinuses are clear. The mastoid air cells are well pneumatized. Orbits: The bony orbits are grossly intact. There are bilateral ocular lens implants. IMPRESSION: There is no hemorrhage, mass effect, or evidence of acute territorial ischemia by CT alcides echevarria. ACT 112: Negative or not required by law. Electronically signed by: Sukh Hilario M.D. 05/19/2022 3:53 PM
--- NOTE | 2022-05-19 16:35 | Electrocardiogram Report ---
Test Reason : Blood Pressure : / mmHG Vent. Rate : 057 BPM Atrial Rate : 057 BPM P-R Int : 246 ms QRS Dur : 108 ms QT Int : 378 ms P-R-T Axes : -10 061 071 degrees QTc Int : 367 ms Sinus bradycardia with 1st degree A-V block Possible Old Anterior infarct (cited on or before 19-MAY-2022) Abnormal ECG When compared with ECG of 01-Feb-2018; HR has decreased by 42 bpm Confirmed by Triston Jones ([id number]) on 05/19/2022 4:34:53 PM Referred By: Confirmed By:Triston Jones
[2022-05-19 16:45] LABS: Hematocrit (blood only) 27.3 % (34.1-44.9); Hemoglobin 9.1 g/dl (12.0-16.0); Mean Corpuscular Hemoglobin 35.5 pg (25.0-34.0); Mean Corpuscular Hgb Conc 33.3 g/dL (32.0-36.0); Mean Corpuscular Volume 106.6 fL (80.0-100.0); Mean Platelet Volume 10.2 fL (9.4-12.3); Platelet Count 192 K/uL (130-400); RDW Coefficient of Variation 17.9 % (11.5-14.5); Red Blood Count 2.56 M/uL (3.93-5.22); White Blood Count 4.42 K/ul (4.8-10.8)
[2022-05-19 17:06] LABS: Alanine Aminotransferase 11 U/L (7-52); Albumin Level 3.8 gm/dl (3.4-5.0); Alkaline Phosphatase 67 U/L (34-104); Anion Gap 9 (3-11); Aspartate Aminotransferase 12 U/L (13-39); BUN Creatinine Ratio 12.9 (10-20); Bilirubin,Total 1.1 mg/dl (0.2-1.0); Blood Urea Nitrogen 46 mg/dl (6-23); Calcium 12.3 mg/dl (8.5-10.1); Carbon Dioxide 26 mmol/L (21-32); Chloride 95 mmol/L (98-107); Est GFR (African American) 13.8 ml/min; Est GFR (Non-African American) 11.9 ml/min; Glucose 149 mg/dl (70-99(Fasting)); Magnesium 2.4 mg/dl (1.7-2.4); Phosphorus 4.7 mg/dl (2.5-4.9); Potassium 4.2 mmol/L (3.5-5.1); Sodium 130 mmol/L (136-145); Total Protein 7.8 gm/dl (6.0-8.3)
[2022-05-19 17:17] LABS: Anisocytosis Present; Basophils # (auto) 0.04 K/uL (0-0.2); Basophils % (auto) 0.9 %; Eosinophils # (auto) 0.04 K/uL (0-0.50); Eosinophils % (auto) 0.9 %; Immature Granulocytes # (auto) 0.03 K/uL (0.00-0.02); Immature Granulocytes % (auto) 0.7 %; Lymphocytes # (auto) 0.68 K/uL (1.2-3.4); Lymphocytes % (auto) 15.4 %; Monocytes % (auto) 4.5 %; Neutrophils # (auto) 3.43 K/uL (1.4-6.5); Neutrophils % (auto) 77.6 %; Polychromasia 1+
--- NOTE | 2022-05-19 17:31 | History & Physical Report ---
Date of Service May 19, 2022 Assessment & Plan (1) Hypercalcemia: Plan: Moderate hypercalcemia 12.3mg /dL corrected to 12.5. Symptomatic with muscle weakness, fatigue and mild confusion. PTH 11.6 (low), Mg 2.4, PO 2.4, TSH 1.171. Prior 25-hydroxy vit D WNL in February. Patient refusing further workup and says she will get it in [facility]. Unclear if she has had prior myeloma workup (CKD, anemia and hypercalcemia concerning for this) or PTH related peptide Given decreasing size of tumor on chemotherapy and non metastatic appears unlikely hypercalcemia of malignancy unless PTHrP raised but suggest getting in touch with Leandro tomorrow as closed for today on admission Alternatively anastrazole causing hypercalcemia and will hold this for now pending discussion with Leandro. Discussed with patient and plan to treat with holding diuretics and start on IV fluids overnight to see how much calcium corrects and repeat levels in AM although likely to need bisphosphonate therapy to lower calcium. (2) CKD (chronic kidney disease) stage 5, GFR less than 15 ml/min: Plan: Monitor for fluid overload with IV fluids as above Unclear what caused progression from 2019 to February 2022 but appears stable since then. Consider nephrology inpatient evaluation (3) MCKENZIE (nonalcoholic steatohepatitis): Plan: Monitor for fluid overload as above (4) GERD (gastroesophageal reflux disease): (5) HTN (hypertension): Plan: Monitor for worsening hypertension off furosemide and spironolactone (6) Type 2 diabetes mellitus: Plan: HbA1C 7.3 in February. No need to repeat. Consult pharmacy for glycemic control during inpatient stay since patient takes over 100 units daily Plan VTE Prophylaxis - heparin 7500 units q8h Diet - T2DM Disposition - admit to med/tele Admission and Anticipated Discharge Date Admission Date: May 19, 2022 History of Present Illness Chief Complaint: Hypercalcemia Primary Care Provider: Pat Alejandre MD Pauline Beyer is a 72 year old female with breast cancer who presents to the ER with hypercalcemia on outpatient labs and associated fatigue, confusion and weakness. In the ER she is also mildly bradycardic and hypertensive. She denies any polyuria, polydipsia, kidney stones, bone pain. She denies any calcium supplementation. Regarding her breast cancer, she is treated at [facility] and I do not have the details on admission regarding this other than she is only being treated with Ibrance and Anastrazole which she reports has shrunk the tumor considerably. She reports no surgery is planned. She has had a considerable of her renal function over the last 2 years with creatinine 1.64 -> 3.35 in February. It has been relatively stable since February. She has not seen a leadership program associate for multiple years but has an appointment set up next month. Her PCP has been weaning her off the diuretics to see if this helps. She reports no increase in leg swelling or shortness of breath with weaning off the diuretics. Review of previous notes show she required hemodialysis during hospitalization in 2018 although no nephrology notes are present in current version of [facility]. In the ER her calcium level was repeated and appears to be stable from 2 days previously when it was 12.4. However her calcium has been elevated for some time and even in February it was 12.0, however most recently in March it was down to 10.6. She was given NSS 500ml bolus and referred to medicine for admission and ongoing management of hypercalcemia. The patient [facility] [place] was closed at the time of calling. She is currently refusing further workup and blood tests at this time telling me she will get these at [place]. Allergies Allergy/AdvReac Type Severity Reaction Status Date / Time amoxicillin Allergy Severe LIPS Verified 05/19/22 17:29 SWELLED, "RED ALL OVER" doxycycline Allergy Severe LIPS Verified 05/19/22 17:29 SWELLED, "RED ALL OVER". cephalexin [From Keflex] Allergy skin Verified 05/19/22 17:29 starts to peel off sulfamethoxazole Allergy Unknown Verified 05/19/22 17:29 [From Bactrim] trimethoprim [From Bactrim] Allergy Unknown Verified 05/19/22 17:29 atorvastatin AdvReac Myalgia Verified 05/19/22 17:29 Home Medications Medication Instructions Recorded Confirmed Type vitamins A,C,B-qjwf-gqwoxq 2,148 1 tab PO DAILY 05/02/19 05/19/22 History mcg-113 mg-45 mg-17.4 mg tablet promethazine 25 mg tablet 25 mg PO Q6H PRN nausea #30 tabs 08/17/19 05/19/22 Rx aspirin 81 mg tablet,delayed 81 mg PO DAILY 11/23/19 05/19/22 History release (Adult Aspirin Regimen) pen needle, diabetic 32 gauge x #600 ea 11/07/20 02/19/21 Rx 5/32" (BD Ultra-Fine Sheila Pen Needle) insulin aspart U-100 100 unit/mL See Rx Instructions subcut 04/29/21 05/19/22 Rx (3 mL) subcutaneous pen (Novolog .COMPLEX #135 mL Flexpen U-100 Insulin aspart) fluconazole 150 mg tablet 150 mg PO Q72H PRN yeast infection 06/10/21 05/19/22 Rx (Diflucan) #2 tabs omega-3 fatty acids 1,000 mg 2,000 mg PO BID #360 caps 09/07/21 05/19/22 Rx capsule allopurinol 100 mg tablet 50 mg PO DAILY #45 tabs 11/17/21 05/19/22 Rx spironolactone 25 mg tablet 12.5 mg PO DAILY #45 tabs 11/17/21 05/19/22 Rx fenofibrate nanocrystallized 145 145 mg PO DAILY #90 tabs 03/23/22 05/19/22 Rx mg tablet cyclobenzaprine 5 mg tablet 5 mg PO TID PRN muscle spasm #30 03/30/22 05/19/22 Rx tabs venlafaxine 75 mg capsule,extended 75 mg PO DAILY #90 caps 04/07/22 05/19/22 Rx release 24 hr furosemide 40 mg tablet 40 mg PO DAILY #90 tabs 04/13/22 05/19/22 Rx insulin glargine 100 unit/mL (3 60 unit (0.6 mL) subcut BID #108 mL 04/27/22 05/19/22 Rx mL) subcutaneous pen (Lantus Solostar U-100 Insulin) tramadol 50 mg tablet 50 mg PO Q6H PRN pain #30 tabs 05/18/22 05/19/22 Rx anastrozole 1 mg tablet 1 mg PO DAILY 05/19/22 05/19/22 History furosemide 20 mg tablet 20 mg PO QPM 05/19/22 05/19/22 History palbociclib 125 mg tablet (Ibrance) 125 mg PO UD 05/19/22 05/19/22 History tramadol 50 mg tablet 50 mg PO Q6 PRN Pain 05/19/22 05/19/22 History Past Med/Surg History Medical History (Updated 05/20/22 @ 06:39 by Phi Frank MD) JEFFREY (acute kidney injury) post-operative 2017 - short term dialysis Breast cancer diagnosed 2020 Candidal intertrigo Chronic diastolic congestive heart failure Chronic stasis dermatitis CKD (chronic kidney disease) stage 3, GFR 30-59 ml/min CKD (chronic kidney disease) stage 5, GFR less than 15 ml/min Crystal arthropathy Dyslipidemia GERD (gastroesophageal reflux disease) HTN (hypertension) Hyperuricemia MCKENZIE (nonalcoholic steatohepatitis) Seborrheic dermatitis Statin myopathy Type 2 diabetes mellitus Vitamin D deficiency Surgical History History of appendectomy History of tonsillectomy and adenoidectomy Humerus fracture surgical repair Hx of cholecystectomy Family History Father Depression Diabetes Mother Hypertension Kidney stones Gallbladder disease Denies family history of Ovarian cancer Prostate cancer Myocardial infarction Breast cancer Colorectal cancer Social History Smoking Status: Never smoker Second Hand Exposure: No; Do You Dip or Chew Tobacco: No; Tobacco Cessation Education Requested by Patient: No Hx Alcohol Use: No Hx Substance Use: No Preferred Language: Maltese Communication Ability: Effective Visual Impairment: Limited Hearing Ability: Normal Safety Grooving Machine Operator Required: No Beliefs That Will Affect Care: None marital status: Current Living Situation: Spouse 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 Other Information That Helps Us Care for You: No Feels Safe at Home: Yes Safety Concerns: Feels Safe At This Time Childhood Exposure to Second-Hand Smoke: No Dental Care, Regularly: Yes Physical Activity Frequency: Does not Exercise Seatbelt Use: never Sunscreen Use: No Assistive Devices: Glasses, Scooter/Electric Scooter and Walker Review of Systems Review of Systems: All systems reviewed & are unremarkable except as noted in HPI & below Physical Exam Constitutional: well developed and + morbidly obese; + not well nourished and no acute distress Eyes: + anicteric sclerae; normal pupil size ENMT: external ear and nose normal, oropharynx normal Mouth: oral mucous membranes not dry Neck: trachea midline, no thyromegaly Respiratory: normal respiratory effort, lungs clear to auscultation Cardiovascular: Rate/Rhythm: regular rate and regular rhythm Heart Sounds: no murmur Extremities: normal capillary refill and + pedal edema (trace pitting ankles b/l equal); no calf tenderness Gastrointestinal (Abdomen): normal bowel sounds, soft, nontender, no hepatosplenomegaly Musculoskeletal: no cyanosis or clubbing, extremities motor strength 5/5 Skin: no rashes, warm and dry Neurologic: moves all extremities and awake; no focal motor deficits and not confused Psychiatric: A+Ox3, euthymic affect Results & Data Results & Data ([facility]) Vital Signs (Past 12 Hours) Vital Signs Temp Pulse Resp BP Pulse Ox O2 Del Method 05/19/22 13:35 36.7 C 58 L 18 170/62 H 93 Room Air Laboratory Results Abnormal lab results 05/19/22 05/19/22 05/19/22 Range/Units 16:33 16:33 16:33 WBC 4.42 L (4.8-10.8) K/ul RBC 2.56 L (3.93-5.22) M/uL Hgb 9.1 L (12.0-16.0) g/dl Hct 27.3 L (34.1-44.9) % MCV 106.6 H (80.0-100.0) fL MCH 35.5 H (25.0-34.0) pg RDW Std Deviation 69.0 H (36.4-46.3) fL RDW Coeff of Amparo 17.9 H (11.5-14.5) % Reticulocyte % (Auto) 2.1 H (0.5-2.0) % Lymph # (Auto) 0.68 L (1.2-3.4) K/uL Trinity # (Auto) 0.20 L (0.24-0.82) K/uL Immature Gran # (Auto) 0.03 H (0.00-0.02) K/uL Sodium 130 L (136-145) mmol/L Chloride 95 L (98-107) mmol/L BUN 46 H (6-23) mg/dl Creatinine 3.56 H (0.6-1.2) mg/dl Glucose 149 H (70-99(Fasting)) mg/dl POC Glucose (70-99) mg/dl Calcium 12.3 H* (8.5-10.1) mg/dl Total Bilirubin 1.1 H (0.2-1.0) mg/dl AST 12 L (13-39) U/L PTH Intact 11.6 L (12.0-88.0) pg/ml 05/19/22 Range/Units 23:04 WBC (4.8-10.8) K/ul RBC (3.93-5.22) M/uL Hgb (12.0-16.0) g/dl Hct (34.1-44.9) % MCV (80.0-100.0) fL MCH (25.0-34.0) pg RDW Std Deviation (36.4-46.3) fL RDW Coeff of Amparo (11.5-14.5) % Reticulocyte % (Auto) (0.5-2.0) % Lymph # (Auto) (1.2-3.4) K/uL Trinity # (Auto) (0.24-0.82) K/uL Immature Gran # (Auto) (0.00-0.02) K/uL Sodium (136-145) mmol/L Chloride (98-107) mmol/L BUN (6-23) mg/dl Creatinine (0.6-1.2) mg/dl Glucose (70-99(Fasting)) mg/dl POC Glucose 201 H (70-99) mg/dl Calcium (8.5-10.1) mg/dl Total Bilirubin (0.2-1.0) mg/dl AST (13-39) U/L PTH Intact (12.0-88.0) pg/ml Diagnostic Findings CT SCAN OF THE BRAIN WITHOUT IV CONTRAST CLINICAL HISTORY: Dizziness. COMPARISON STUDY: No priors. TECHNIQUE: Unenhanced axial CT scan of the brain is performed from the vertex to the skull base. A dose lowering technique was utilized adhering to the principles of ALARA. CT DOSE: 687.98 mGy.cm FINDINGS: Brain parenchyma: There is age-related involutional change noting mild subcortical and periventricular microangiopathic disease. There is no hemorrhage, mass effect, or evidence of acute territorial ischemia by CT criteria. Sheffield-white matter differentiation is preserved. No extra-axial fluid collection is seen. Ventricles, sulci, cisterns: Prominent secondary to involutional change. Intracranial vasculature: There is atherosclerotic calcification of the cavernous carotid and vertebral arteries. Calvarium: Unremarkable. Sinuses and mastoids: The paranasal sinuses are clear. The mastoid air cells are well pneumatized. Orbits: The bony orbits are grossly intact. There are bilateral ocular lens implants. IMPRESSION: There is no hemorrhage, mass effect, or evidence of acute territorial ischemia by CT criteria. Medications Administered ER Medications Given: NSS 500ml bolus Ondansetron 4mg IV ECG Indication: other (hypercalcemia) Rate (beats per minute): 57 Rhythm: sinus bradycardia Findings: + 1st degree AV block Comparison ECG Date: from (February 01, 2018) Change: no significant change Code Status & VTE Plan Code Status DNR/DNI VTE Prophylaxis Plan VTE Prophylaxis will be ordered: Yes PG Care Time/CCT Total # of Minutes Spent Total Time Spent with Patient: Total time spent is greater than 50% in coordination of care (as documented) at patient's floor/unit and/or counseling patient: Coding Level of Care Code 40921 Initial Inpt Care Lvl 3 Diagnoses Hypercalcemia E83.52 CKD (chronic kidney disease) stage 5, GFR less than 15 ml/min N18.5 MCKENZIE (nonalcoholic steatohepatitis) K75.81 GERD (gastroesophageal reflux disease) K21.9 HTN (hypertension) I10 Type 2 diabetes mellitus E11.9
[2022-05-19 18:04] LABS: Reticulocyte % 2.1 % (0.5-2.0); Reticulocytes # 0.06 10^6/uL (0.02-0.10)
[2022-05-19] MEDS ORDERED: NORMOSOL-R 1,000 ML IV ONE (18:32)
[2022-05-19] MEDS ORDERED: traMADol HCL 50 MG TABLET PO PRN (23:06)
[2022-05-19] MEDS ORDERED: PHARMACY GLYCEMIC MGMT CONSULT PRN (23:06)
[2022-05-19] MEDS ORDERED: PROMETHAZINE HCL 25 MG TAB PO PRN (23:06)
[2022-05-19] MEDS ORDERED: Patient's HEIGHT &/or WEIGHT Needed STA (23:25)
[2022-05-19] MEDS: NORMOSOL-R 1,000 ML IV SCH (23:38)
[2022-05-19] MEDS ORDERED: GLUCOSE 40% GEL 15 GM TUBE PO PRN (23:45)
[2022-05-19] MEDS ORDERED: LANTUS PER UNIT CHARGE SQ ONE (23:45)
[2022-05-19] MEDS ORDERED: GLUCOSE 10 TAB/TUBE PO PRN (23:45)
[2022-05-19] MEDS ORDERED: CARBOHYDRATES FOR HYPOGLYCEMIA PO PRN (23:45)
[2022-05-19] MEDS ORDERED: GLUCAGON FOR INJ 1 MG VIAL IM PRN (23:45)
[2022-05-19] MEDS ORDERED: DEXTROSE 50% 50 ML SYRINGE IV PRN (23:45)
[2022-05-19] MEDS: INSULIN ASPART PER UNIT SC SCH (23:55)
[2022-05-20] MEDS ORDERED: NON-FORMULARY PATIENT'S OWN MED PO SCH (00:45)
[2022-05-20 05:19] LABS: Calcium 11.8 mg/dl (8.5-10.1); Creatinine Clr Calc Pharmacy 17.1 ml/min; Est GFR (African American) 14.5 ml/min; Est GFR (Non-African American) 12.5 ml/min; Potassium 4.4 mmol/L (3.5-5.1)
[2022-05-20] MEDS: INSULIN ASPART PER UNIT SC SCH ×5 (05:30→21:43)
[2022-05-20] MEDS: NORMOSOL-R 1,000 ML IV SCH ×3 (05:31→19:24)
--- NOTE | 2022-05-20 07:53 | Hospitalist Progress Note ---
Date of Service May 20, 2022 Assessment & Plan (1) Hypercalcemia: Plan: Pt is 72 yo female with PMH of stage 5 CKD, CHF, MCKENZIE, GERD, HTN, DM, and dyslipidemia presenting for hypercalcemia on outpatient labs associated with weakness, fatigue, and loss of appetite. Hypercalcemia - Ca 12.3 corrected to 12.5. Symptomatic with muscle weakness, fatigue, and mild confusion - PTH 11.6 (low), Mg 2.4, PO 2.4, TSH 1.171. - Prior 25-hydroxy vit D WNL in February. - Ca 11.8 this AM, less symptomatic - Anastrazole held d/t possibility of causing hypercalcemia; pending discussion with Leandro - pt's was told by doc at [facility] [place] that Ibrance could cause Ca problems - Received aggressive hydration for 24 hours. - IV lasix dose today and resume home diuretics. - Hold fluids. recheck labs in am. - consider IV bisphosphonates if calcium level worsens CKD - Monitor for fluid overload with IV fluids as above- LE edema on exam, no SOB or lung findings - Unclear what caused progression from 2019 to February 2022 but appears stable since then - Cr 3.43 today, eGFR 12.5 - Consider nephrology inpatient evaluation- pt has outpatient nephro appt in May. Hyponatremia - mildly low. follow Breast cancer in current tx - pt on Ibrance and anastrozole, following with Andrew - Pt has completed 1 month (3 weeks of med, 1 week free) of Ibrance without issue - This is her second month, her last pill is tomorrow and then she starts her week off MCKENZIE - Monitor for fluid overload as above HTN - BP mostly in the 150-170s/60-70s today Chronic HFpEF Bilateral leg edema - While aggressively hydrating - give lasix IV 40mgs now and resume home diuretics - furosemide 40 mg in AM, 20 mg in PM spironolactone 12.5 mg daily Right heart dysfunction/pul HTN - echo 2017 - likely with underlying OHS/LISA - consider outpatient sleep study DM - HbA1C 7.3 in February. No need to repeat. - controlled at home with insulin glargine and aspart - Consult pharmacy for glycemic control during inpatient stay since patient takes over 100 units daily Morbid obesity with BMI 45.7 - to consider outpatient weight management referral GERD - no home tx noted (2) CKD (chronic kidney disease) stage 5, GFR less than 15 ml/min: (3) MCKENZIE (nonalcoholic steatohepatitis): (4) GERD (gastroesophageal reflux disease): (5) HTN (hypertension): (6) Type 2 diabetes mellitus: (7) Breast cancer: Plan FEN: DM diet, VTE Prophylaxis - heparin 7500 units q8h Disposition- med/tele Admission and Anticipated Discharge Date Admission Date: May 19, 2022 Supervising Physician Co-Signing Physician Notes Resident Physician Supervision Note: I independently interviewed and examined the patient and verified the barrett history and physical, reviewed labs and image studies and agree with resident Dr. Bentley findings and care plan. Subjective Pt is 72 yo female with PMH of stage 5 CKD, CHF, MCKENZIE, GERD, HTN, DM, and dyslipidemia presenting for hypercalcemia on outpatient labs associated with weakness, fatigue, and loss of appetite. 05/20/2022: On Tuesday she was told of her lab results by her PCP. Her [place] the [place] and her noticed a decrease in her appetite. Same lack of appetite on Tuesday. The addition of weakness and fatigue prompted her to come into the hospital. Pt feeling better today. She "doesn't feel like she could climb a hill" but is feeling better than last night. Pt is able to walk around her room to her bedside commode with her walker (which she uses at home). Pt's also tells me that she recalls a doctor at [facility] [place] telling her that high calcium can be caused by her cancer med Ibrance. Her also says that the patient is to start a bisphosphonate soon but she needs dental clearance first. Pt denies SOB, chest pain, leg pain. Physical Exam Constitutional: NAD, HTN with normal pulse, afebrile Respiratory: CTA bilaterally. No increased work of breathing. No rhonchi, wheezing, or rales. Cardiovascular: RRR. No murmur noted. 1+ pitting edema in her LE, L>R Gastrointestinal (Abdomen): Nontender, +BS. No obvious massed noted. Skin: Brawny induration of bilateral LE from ankles to mid calf Results & Data Results & Data ([facility]) Vital Signs (Past 12 Hours) Vital Signs Temp Pulse Pulse Pulse Resp BP BP 05/20/22 07:20 37.5 C 81 19 160/67 H 05/20/22 03:06 36.6 C 63 18 150/67 H 05/19/22 23:45 67 05/19/22 23:45 05/19/22 23:45 36.6 C 77 20 159/61 H 05/19/22 23:06 36.6 C 77 20 159/61 H 05/19/22 23:06 05/19/22 21:00 62 18 173/51 H Pulse Ox Pulse Ox O2 Del Method O2 Del Method 05/20/22 07:20 96 Room Air 05/20/22 03:06 90 Room Air 05/19/22 23:45 05/19/22 23:45 Room Air 05/19/22 23:45 90 Room Air 05/19/22 23:06 90 Room Air 05/19/22 23:06 90 Room Air 05/19/22 21:00 92 Room Air Resident Activity Tracking Resident Involvement: Resident Care Provided Care Provided: Adult Hospital Medicine (1) Breast cancer Breast location: unspecified site of breast Estrogen receptor status: unspecified Laterality: left Patient sex: female Qualified Code(s): C50.912 - Malignant neoplasm of unspecified site of left female breast
[2022-05-20] MEDS ORDERED: LANTUS PER UNIT CHARGE SQ ONE (09:00)
[2022-05-20] MEDS ORDERED: VITAMINS A C E ZINC COPPER PO SCH (09:00)
[2022-05-20] MEDS ORDERED: ANASTROZOLE 1 MG TAB PO SCH (09:00)
[2022-05-20] MEDS: HEPARIN SOD 5,000 UNIT/0.5 ML VIAL SQ SCH ×4 (09:26→23:26)
[2022-05-20] MEDS: ASPIRIN 81 MG ECTAB PO SCH (09:31)
[2022-05-20] MEDS: VENLAFAXINE HCL XR 75 MG CAPXR PO SCH (09:31)
[2022-05-20] MEDS: allopurinoL 100 MG TAB PO SCH (09:31)
[2022-05-20] MEDS ORDERED: FUROSEMIDE 40 MG/4 ML VIAL IV ONE (11:21)
--- NOTE | 2022-05-20 11:36 | Pharmacy Report ---
Pharmacy Glycemic Short Note 2 - Date of Service May 20, 2022 - Glycemic Short BSG Results (Last 24 hours): 05/19/22 05/19/22 05/20/22 16:33 23:04 04:13 Glucose 149 H 162 H POC Glucose 201 H 05/20/22 07:45 Glucose POC Glucose 169 H OUTPATIENT ANTIDIABETIC REGIMEN: * Lantus 60 units SQ BID * Humalog sliding scale with meals up to 225 units per day ASSESSMENT: * 72 y/o F admitted for hypercalcemia. Patient with history of Type 2 diabetes managed on basal and bolus insulins at home probably around 320 units/day total from looking at medication history. HbA1c is 7.3% from 03/11/22 bina cating that she is pretty well controlled given her age and comorbidities. * Patient also has history of CKD. * Pharmacy consulted for glycemic control yesterday. * Basal Lantus was given at 40 units last night which is ~30% reduced from home. Fasting BSG today was 169 mg/dl. Lantus 30 units given this AM (50% reduced from home dose). * Novolog was started last night based on wt and stress of 3. Continued this at breakfast. Pre-lunch BSG = 178 mg/dl. Loosened Novolog parameters to stress of 2 for this evening. Patient seems to have limited food intake. * Basal Insulin dose scale added for HS based on BSG. PLAN FOR INPATIENT GLYCEMIC CONTROL: * Basal insulin * Lantus 30 units SQ x 1 today AM then * 20-40 units SQ dose scale based on BSG BID (see EMR for details) * Bolus insulin: loosened CF & CR and added 00 & 04 checks * NovoLog per scale ACHS or Q6hrs while NPO * Goal Range: Low 110 mg/dL - High 140 mg/dL * Correction Factor: 20 mg/dL/unit * Nutritional / Prandial insulin per carb ratio of 1 unit per 7 grams CHO consumed
[2022-05-20] MEDS: SPIRONOLACTONE 12.5 MG TAB PO SCH (12:41)
[2022-05-20] MEDS ORDERED: POLYETHYLENE (MIRALAX) 17 GM PACK PO PRN (20:39)
[2022-05-20] MEDS ORDERED: FUROSEMIDE 20 MG TAB PO SCH (21:00)
[2022-05-20] MEDS ORDERED: LANTUS PER UNIT CHARGE SQ SCH (21:00)
[2022-05-20 22:48] LABS: Appearance Urine Turbid (Clear); Bilirubin Urine Negative (Negative); Blood Urine 1+ (Negative); Cast Urine Automated 0 /lpf (0-5); Color Urine Yellow; Glucose Urine UA Negative (Negative); Ketones Urine Negative (Negative); Leukocyte Esterase Urine 3+ (Negative); Nitrite Urine Negative (Negative); Protein Urine 2+ (Negative); RBC Urine Automated 0-4 /hpf (0-4); Specific Gravity Urine 1.011 (1.000-1.030); Urobilinogen Urine Negative (Negative); WBC Urine Automated >30 /hpf (0-5)
[2022-05-20 23:01] LABS: Bacteria Urine Automated 4+ (Negative)
[2022-05-20] MEDS ORDERED: PALBOCICLIB PO SCH (23:30)
[2022-05-21] MEDS: INSULIN ASPART PER UNIT SC SCH ×6 (00:02→20:54)
[2022-05-21] MEDS: HEPARIN SOD 5,000 UNIT/0.5 ML VIAL SQ SCH ×3 (06:00→20:55)
[2022-05-21 07:11] LABS: BUN Creatinine Ratio 14.6 (10-20); Calcium 11.2 mg/dl (8.5-10.1); Creatinine Clr Calc Pharmacy 16.1 ml/min; Est GFR (African American) 13.5 ml/min; Est GFR (Non-African American) 11.6 ml/min
--- NOTE | 2022-05-21 07:19 | Hospitalist Progress Note ---
Date of Service May 21, 2022 Assessment & Plan (1) Hypercalcemia: Plan: Pt is 72 yo female with PMH of stage 5 CKD, CHF, MCKENZIE, GERD, HTN, DM, and dyslipidemia presenting for hypercalcemia on outpatient labs associated with weakness, fatigue, and loss of appetite. Hypercalcemia - Ca 12.3 corrected to 12.5 upon admission. Symptomatic with muscle weakness, fatigue, and mild confusion - PTH 11.6 (low), Mg 2.4, PO 2.4, TSH 1.71 - Prior 25-hydroxy vit D WNL in February, 25-hydroxy vit D low (05/21) - per nephro, PTHrp, 25 and 1,25-vitamin D, SPEP, pending - Anastrazole held d/t possibility of causing hypercalcemia - pt's was told by doc at [facility] [place] that Ibrance could cause Ca problems - Received aggressive hydration for first 24 hours - IV lasix dose (05/20) and resumed home diuretics for concern of fluid overload - Held fluids overnight (05/20-05/21), Ca down to 11.2 this AM (05/21) - consider Denosumab if calcium level worsens, but they appear to be downtrending Acute exacerbation of HFpEF - with underlying worsening kidney function. - CXR- cardiomegaly with congestive failure and pulmonary edema, small pleural effusions - Received Iv lasix dose 05/20 - 40 mg inj lasix once today - holding IVF. (didn't receive the fluids that was ordered today) - monitor Is and Os - Holding home diuretics - furosemide 40 mg in AM, 20 mg in PM spironolactone 12.5 mg daily. - to reassess fluid status in am and reinstitute diuretics as appropriate. - bmp in am. Recent rise in creatinine in setting of stage 3 CKD/ - Baseline Cr in 2018= 2.0 - Unclear what caused progression from 2019 to February 2022 but appears stable since then - Cr 3.64 today, eGFR 11.4 - renal US- normal - renal consulted. Second degree heart block (Mobitz 1) - Noted 05/20. Not on any neg inotrope. cardio recommends active surveillance Hyponatremia - mildly low. follow - Stable at 132 MCKENZIE - Monitor for fluid overload HTN - BP mostly in the 140s-150s/60-70s today DM - HbA1C 7.3 in February. No need to repeat. - controlled at home with insulin glargine and aspart - Pharmacy recommends: - basal= lantus 30 units 1x 05/20/2022 then 20-40 units scale based on BSG BID - bolus= novolog per scale ACHS or q6hr while NPO - goal range= 110-140 mg/dL - correction factor= 20 mg/dL/unit - nutritional/prandial insulin per carb ratio of 1 unit per 7 grams CHO Breast cancer in current tx - pt on Ibrance and anastrozole, following with Andrew - Pt has completed 1 month (3 weeks of med, 1 week free) of Ibrance without issue - This is her second month, her last pill is today and then she starts her week off Morbid obesity with BMI 45.7 - to consider outpatient weight management referral GERD - no home tx noted (2) CKD (chronic kidney disease) stage 5, GFR less than 15 ml/min: (3) MCKENZIE (nonalcoholic steatohepatitis): (4) GERD (gastroesophageal reflux disease): (5) HTN (hypertension): (6) Type 2 diabetes mellitus: (7) Breast cancer: (8) Mobitz type 1 second degree AV block: Plan FEN: DM diet, NS 1 L today, no maintenance fluids VTE Prophylaxis: heparin 7500 units q8h (pt refuses) Disposition: med/tele Admission and Anticipated Discharge Date Admission Date: May 19, 2022 Supervising Physician Co-Signing Physician Notes Resident Physician Supervision Note: I independently interviewed and examined the patient and verified the barrett history and physical, reviewed labs and image studies and agree with resident Dr. Bentley findings and care plan. Subjective Pt is 72 yo female with PMH of stage 5 CKD, CHF, MCKENZIE, GERD, HTN, DM, and dyslipidemia presenting for hypercalcemia on outpatient labs associated with weakness, fatigue, and loss of appetite. 05/20/2022: On Tuesday she was told of her lab results by her PCP. Her and her went [place] the [place] on [place] and her noticed a decrease in her appetite. Same lack of appetite on Tuesday. The addition of weakness and fatigue prompted her to come into the hospital. Pt feeling better today. She "doesn't feel like she could climb a hill" but is feeling better than last night. Pt is able to walk around her room to her bedside commode with her walker (which she uses at home). Pt's also tells me that she recalls a doctor at [facility] [place] telling her that high calcium can be caused by her cancer med Ibrance. Her also says that the patient is to start a bisphosphonate soon but she needs dental clearance first. Pt denies SOB, chest pain, leg pain. 05/21/2022: Pt feeling well today. Overnight she explains that her heart had an episode that was "due to her heart failure" and not receiving diuretics. Originally it was thought that she went into Afib but it was determined that her telemetry showed 2nd degree (mobitz I) heart block. Pt denies SOB, lightheadedness, chest pain, leg pain, dizziness. Cardio and nephro consulted today. Physical Exam Constitutional: NAD, BP high at 152/60, other vitals WNL Respiratory: CTA bilaterally. Non labored breathing. No rhonchi, wheezes, or crackles. Cardiovascular: RRR. No murmur noted. 1+ bilateral pitting edema of LE L>R Skin: Brawny induration of bilateral LE from ankles to mid calf Results & Data Results & Data ([facility]) Vital Signs (Past 12 Hours) Vital Signs Temp Pulse Resp BP Pulse Ox O2 Del Method 05/21/22 02:57 37.2 C 63 18 148/66 H 90 Room Air 05/20/22 19:40 Room Air 05/20/22 23:11 36.9 C 63 18 150/66 H 91 Room Air 05/20/22 19:17 36.9 C 71 18 149/66 H 90 Room Air Diagnostic Findings Renal Ultrasound 05/21/22 10:04 ULTRASOUND KIDNEYS AND BLADDER CLINICAL HISTORY: Acute on chronic renal insufficiency. COMPARISON STUDY: Abdominal CT dated 01/31/2018. TECHNIQUE: Real-time, grayscale, and color flow sonography of the kidneys and bladder is performed. Images are reviewed in the transverse and longitudinal planes. FINDINGS: Kidneys: The kidneys are normal in size and echotexture. The right kidney measures 10.7 cm in length and the left kidney measures 11.9 cm in length. There is no hydronephrosis. No shadowing renal calculi are identified. There is no sonographic evidence of contour deforming renal mass lesion. No perinephric fluid is identified. Bladder: The bladder is decompressed and grossly unremarkable. Ureteral jets were not seen. Upper abdomen: The liver appears enlarged and steatotic. Nodularity of the hepatic surface contour suggests morphologic changes of cirrhosis. IMPRESSION: 1. The kidneys are normal in size and without hydronephrosis. 2. The bladder was decompressed and grossly unremarkable. ACT 112: Negative or not required by law. Electronically signed by: Sukh Hilario M.D. 05/21/2022 11:46 AM Chest X-Ray 05/21/22 10:28 TWO VIEW CHEST CLINICAL HISTORY: Congestive heart failure.. FINDINGS: AP and lateral chest radiographs are compared to study dated 02/02/2018. The heart is enlarged noting atherosclerotic calcification of the thoracic aorta. There is pulmonary vascular congestion with evidence of interstitial edema. There are small pleural effusions with dependent consolidation. There is no pneumothorax. The skeletal structures are osteopenic. Postoperative change is noted in the right humerus. Degenerative change and hyperkyphosis is seen in the thoracic spine. IMPRESSION: 1. Cardiomegaly with evidence of congestive failure and pulmonary edema. 2. Small pleural effusions with dependent consolidation. ACT 112: Negative or not required by law. Electronically signed by: Sukh Hilario M.D. 05/21/2022 12:36 PM Resident Activity Tracking Resident Involvement: Resident Care Provided Care Provided: Adult Hospital Medicine (1) Breast cancer Breast location: unspecified site of breast Estrogen receptor status: unspecified Laterality: left Patient sex: female Qualified Code(s): C50.912 - Malignant neoplasm of unspecified site of left female breast
--- NOTE | 2022-05-21 08:02 | Electrocardiogram Report ---
Test Reason : Blood Pressure : / mmHG Vent. Rate : 070 BPM Atrial Rate : 076 BPM P-R Int : 000 ms QRS Dur : 104 ms QT Int : 386 ms P-R-T Axes : 000 060 -08 degrees QTc Int : 416 ms Sinus rhythm with 2nd degree A-V block (Mobitz I) Possible Old Anterior infarct (cited on or before 19-MAY-2022) Abnormal ECG When compared with ECG of 19-MAY-2022 15:31, Second degree A-V block now present Confirmed by Triston Jones ([id number]) on 05/21/2022 8:02:06 AM Referred By: REFERRED SELF Confirmed By:Triston Jones
[2022-05-21] MEDS: allopurinoL 100 MG TAB PO SCH (08:30)
[2022-05-21] MEDS: ASPIRIN 81 MG ECTAB PO SCH (08:31)
[2022-05-21] MEDS: VENLAFAXINE HCL XR 75 MG CAPXR PO SCH (08:31)
[2022-05-21] MEDS: SPIRONOLACTONE 12.5 MG TAB PO SCH (08:31)
[2022-05-21] MEDS: PSYLLIUM or GUAR GUM FIBER POWDER PACKET PO SCH (08:31)
--- NOTE | 2022-05-21 08:37 | XCELERA ---
[id number] \\[id number]
--- NOTE | 2022-05-21 08:48 | Pharmacy Report ---
Pharmacy Glycemic Short Note 2 - Date of Service May 21, 2022 - Glycemic Short BSG Results (Last 24 hours): 05/20/22 05/20/22 05/20/22 11:41 16:31 20:23 Glucose POC Glucose 178 H 179 H 180 H 05/20/22 05/21/22 05/21/22 23:59 04:04 05:32 Glucose 107 H POC Glucose 170 H 127 H 05/21/22 07:22 Glucose POC Glucose 128 H OUTPATIENT ANTIDIABETIC REGIMEN: * Lantus 60 units SC BID * Humalog sliding scale with meals up to 225 units per day * HbA1c = 7.3% (03/11/22) ASSESSMENT: 05/21: * Pauline received 76 units of insulin yesterday (60 units basal + 16 units bolus). BSGs were acceptable: 806-101-051-180-170 mg/dL. * Fasting BSG improved to 128 mg/dL this AM. Regimen is currently basal heavy. Given improvement in fasting and degree of kidney impairment, will reduce basal by 20% today. May need to continue titrating down basal dose over the next few days if kidney function does not improve. * No change in Novolog dosing today. 05/20: * 72 y/o F admitted for hypercalcemia. Patient with history of Type 2 diabetes managed on basal and bolus insulins at home probably around 320 units/day total from looking at medication history. HbA1c is 7.3% from 03/11/22 indicating that she is pretty well controlled given her age and comorbidities. * Patient also has history of CKD. * Pharmacy consulted for glycemic control yesterday. * Basal Lantus was given at 40 units last night which is ~30% reduced from home. Fasting BSG today was 169 mg/dl. Lantus 30 units given this AM (50% reduced from home dose). * Novolog was started last night based on wt and stress of 3. Continued this at breakfast. Pre-lunch BSG = 178 mg/dl. Loosened Novolog parameters to stress of 2 for this evening. Patient seems to have limited food intake. * Basal Insulin dose scale added for HS based on BSG. PLAN FOR INPATIENT GLYCEMIC CONTROL: * Basal insulin * Lantus 25 units SC BID * Bolus insulin * NovoLog per scale ACHS or Q6hrs while NPO * Goal Range: Low 110 mg/dL - High 140 mg/dL * Correction Factor: 20 mg/dL/unit * Nutritional / Prandial insulin per carb ratio of 1 unit per 7 grams CHO consumed
[2022-05-21] MEDS ORDERED: LANTUS PER UNIT CHARGE SQ SCH (09:00)
[2022-05-21] MEDS ORDERED: FUROSEMIDE 40 MG TAB PO SCH (09:00)
[2022-05-21] MEDS: LANTUS PER UNIT CHARGE SQ SCH ×2 (09:24→20:55)
--- NOTE | 2022-05-21 10:07 | Nephrology Consultation ---
Date of Consultation May 21, 2022 Assessment & Plan (1) Acute kidney injury: * JEFFREY likely due to hypercalcemia and intravascular volume contraction * 05/17 urinalysis is + for protein and blood. Microscopy is negative for excessive RBC's or cellular casts * Will provide gentle hydration w/ 0.9NS * Will order renal US * Monitor PRP, UO (2) Chronic kidney disease, stage III (moderate): * Baseline Cr 2.0 in 2018. Cr has been highly variable depending upon volume status * h/o JEFFREY on CKD 2018 requiring acute inpatient HD (3) Hypercalcemia: * Non-PTH mediated * Advised patient to stop vitamin D supplement * PTHrp, 25 & 1,25-vitamin D, SPEP and CXR have been ordered * Alkaline phosphatase is wnl * If patient fails to respond to hydration/diuresis, consider Denosumab therapy (4) Breast cancer: * On Ibrance, Anastrozole as directed by Oncology at [facility] History of Present Illness Reason for Consultation: JEFFREY/CKD, hypercalcemia Attending Physician: Sallie Ortiz MD History of Present Illness Mrs. Beyer is a 72 year old white female who is seen at the request of Dr. Ortiz for evaluation of JEFFREY/CKD. Medical records in the EMR were reviewed today and are summarized as follows: Mrs. Beyer has CKD stage G3 w/ baseline Cr 2.0. In 2018 she was hospitalized w/ E. Coli UTI, hypotension, R humeral fracture and JEFFREY requiring acute dialysis. She recovered renal function and came off dialysis but did not maintain outpatient Nephrology follow up. Mrs. Beyer's reports that her renal function was monitored by her Oncologist at [facility]. Review of medical records reveal that there has been wide fluctuation in her kidney function over the last 2 years based upon her volume status. Mrs. Beyer's medical history is also significant for breast cancer managed w/ Ibrance and Anastrazole, vitamin D deficiency, HTN, hyperlipidemia, AODM, GERD and obesity. Mrs. Beyer had blood work performed for her PCP 05/19/22. She was found to have Ca 12.4, albumin 3.8, Cr 3.5, PTH 11.6. Admission to [facility] was advised for IV hydration and ongoing medical management. Mrs. Beyer reports that her serum Ca has been mildly elevated since 03/17. She does take a vitamin D supplement (dose unknown), but has not been on a Ca supplement, thiazide diuretic or lithium. Although she has breast CA there has not been a diagnosis of metastatic disease and she has not been on a bisphosphonate. Mrs. Beyer currently denies bone pain. Mrs. Beyer currently flank pain, hematuria, foamy urine or uremic symptoms. Allergies Allergy/AdvReac Type Severity Reaction Status Date / Time amoxicillin Allergy Severe LIPS Verified 05/19/22 17:29 SWELLED, "RED ALL OVER" doxycycline Allergy Severe LIPS Verified 05/19/22 17:29 SWELLED, "RED ALL OVER". cephalexin [From Keflex] Allergy skin Verified 05/19/22 17:29 starts to peel off sulfamethoxazole Allergy Unknown Verified 05/19/22 17:29 [From Bactrim] trimethoprim [From Bactrim] Allergy Unknown Verified 05/19/22 17:29 atorvastatin AdvReac Myalgia Verified 05/19/22 17:29 Home Medications Medication Instructions Recorded Confirmed Type vitamins A,C,B-rdth-jbpkmv 2,148 1 tab PO DAILY 05/02/19 05/19/22 History mcg-113 mg-45 mg-17.4 mg tablet promethazine 25 mg tablet 25 mg PO Q6H PRN nausea #30 tabs 08/17/19 05/19/22 Rx aspirin 81 mg tablet,delayed 81 mg PO DAILY 11/23/19 05/19/22 History release (Adult Aspirin Regimen) pen needle, diabetic 32 gauge x #600 ea 11/07/20 02/19/21 Rx 532" (BD Ultra-Fine Sheila Pen Needle) insulin aspart U-100 100 unit/mL See Rx Instructions subcut 04/29/21 05/19/22 Rx (3 mL) subcutaneous pen (Novolog .COMPLEX #135 mL Flexpen U-100 Insulin aspart) fluconazole 150 mg tablet 150 mg PO Q72H PRN yeast infection 06/10/21 05/19/22 Rx (Diflucan) #2 tabs omega-3 fatty acids 1,000 mg 2,000 mg PO BID #360 caps 09/07/21 05/19/22 Rx capsule allopurinol 100 mg tablet 50 mg PO DAILY #45 tabs 11/17/21 05/19/22 Rx spironolactone 25 mg tablet 12.5 mg PO DAILY #45 tabs 02/22/22 08/24/22 Rx fenofibrate nanocrystallized 145 145 mg PO DAILY #90 tabs 03/23/22 05/19/22 Rx mg tablet cyclobenzaprine 5 mg tablet 5 mg PO TID PRN muscle spasm #30 03/30/22 05/19/22 Rx tabs venlafaxine 75 mg capsule,extended 75 mg PO DAILY #90 caps 04/07/22 05/19/22 Rx release 24 hr furosemide 40 mg tablet 40 mg PO DAILY #90 tabs 04/13/22 05/19/22 Rx insulin glargine 100 unit/mL (3 60 unit (0.6 mL) subcut BID #108 mL 04/27/22 05/19/22 Rx mL) subcutaneous pen (Lantus Solostar U-100 Insulin) tramadol 50 mg tablet 50 mg PO Q6H PRN pain #30 tabs 05/18/22 05/19/22 Rx anastrozole 1 mg tablet 1 mg PO DAILY 05/19/22 05/19/22 History furosemide 20 mg tablet 20 mg PO QPM 05/19/22 05/19/22 History palbociclib 125 mg tablet (Ibrance) 125 mg PO UD 05/19/22 05/19/22 History tramadol 50 mg tablet 50 mg PO Q6 PRN Pain 05/19/22 05/19/22 History Patient History Medical History JEFFREY (acute kidney injury) post-operative 2017 - short term dialysis Breast cancer diagnosed 2020 Candidal intertrigo Chronic diastolic congestive heart failure Chronic stasis dermatitis CKD (chronic kidney disease) stage 3, GFR 30-59 ml/min CKD (chronic kidney disease) stage 5, GFR less than 15 ml/min Crystal arthropathy Dyslipidemia GERD (gastroesophageal reflux disease) HTN (hypertension) Hyperuricemia MCKENZIE (nonalcoholic steatohepatitis) Seborrheic dermatitis Statin myopathy Type 2 diabetes mellitus Vitamin D deficiency Surgical History History of appendectomy History of tonsillectomy and adenoidectomy Humerus fracture surgical repair Hx of cholecystectomy Family History Father Depression Diabetes Mother Hypertension Kidney stones Gallbladder disease Denies family history of Ovarian cancer Prostate cancer Myocardial infarction Breast cancer Colorectal cancer Social History Smoking Status: Never smoker Second Hand Exposure: No; Do You Dip or Chew Tobacco: No; Tobacco Cessation Education Requested by Patient: No Hx Alcohol Use: No Hx Substance Use: No Preferred Language: Emir[place] Communication Ability: Effective Visual Impairment: Limited Hearing Ability: Normal [employer] Required: No Beliefs That Will Affect Care: None marital status: Current Living Situation: Spouse 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 Other Information That Helps Us Care for You: No Feels Safe at Home: Yes Safety Concerns: Feels Safe At This Time Childhood Exposure to Second-Hand Smoke: No Dental Care, Regularly: Yes Physical Activity Frequency: Does not Exercise Seatbelt Use: never Sunscreen Use: No Assistive Devices: Bedside Commode, Cane, Hospital Bed, Walker and Wheelchair Review of Systems Constitutional: no fever Eyes: no problem reported Ear, Nose, Mouth, Throat: no problem reported Respiratory: no cough and no dyspnea Cardiovascular: no chest pain Gastrointestinal: no abdominal pain and no diarrhea/loose stools Physical Exam Constitutional: + obese; no acute distress Eyes: PERRL, conjunctivae normal, anicteric sclerae PERRL ENMT: Mouth: + dry oral mucous membranes Neck: + short neck Respiratory: Auscultation: lungs clear to auscultation bilaterally Cardiovascular: Rate/Rhythm: regular rate and regular rhythm Gastrointestinal (Abdomen): Inspection/Auscultation: normal bowel sounds Skin: poor skin turgor of the arms, trace bilateral LE swelling Results & Data ([facility]) Vital Signs (Past 12 Hours) Vital Signs Temp Pulse Pulse Resp BP Pulse Ox O2 Del Method 05/21/22 08:00 Room Air 05/21/22 08:00 36.8 C 20 L 69 18 152/60 H 95 05/21/22 02:57 37.2 C 63 18 148/66 H 90 Room Air 05/20/22 23:11 36.9 C 63 18 150/66 H 91 Room Air Laboratory Results Laboratory Tests 05/19/22 05/19/22 05/19/22 16:33 16:33 16:33 WBC 4.42 L Hgb 9.1 L Hct 27.3 L Plt Count 192 Sodium Potassium Chloride Carbon Dioxide BUN Creatinine Glucose Calcium Alkaline Phosphatase 67 Albumin 3.8 TSH 1.171 PTH Intact Urine Color Urine pH Ur Specific [place] Urine Protein Urine Blood Urine Nitrite Urine RBC (Auto) SARS-CoV-2, RNA, NAAT 05/19/22 05/19/22 05/20/22 16:33 16:34 21:51 WBC Hgb Hct Plt Count Sodium Potassium Chloride Carbon Dioxide BUN Creatinine Glucose Calcium Alkaline Phosphatase Albumin TSH PTH Intact 11.6 L Urine Color Yellow Urine pH 6.0 Ur Specific [place] 1.011 Urine Protein 2+ H Urine Blood 1+ H Urine Nitrite Negative Urine RBC (Auto) 0-4 SARS-CoV-2, RNA, NAAT NEGATIVE 05/21/22 05:32 WBC Hgb Hct Plt Count Sodium 132 L Potassium 4.0 Chloride 95 L Carbon Dioxide 25 BUN 53 H Creatinine 3.64 H Glucose 107 H Calcium 11.2 H Alkaline Phosphatase Albumin TSH PTH Intact Urine Color Urine pH Ur Specific [place] Urine Protein Urine Blood Urine Nitrite Urine RBC (Auto) SARS-CoV-2, RNA, NAAT PG Care Time/CCT Total # of Minutes Spent Total Time Spent with Patient: Total time spent is greater than 50% in coordination of care (as documented) at patient's floor/unit and/or counseling patient: Coding Level of Care Code 67042 Inpt Consult Level 5 Diagnoses Acute kidney injury N17.9 Chronic kidney disease, stage III (moderate) N18.30 Hypercalcemia E83.52 Breast cancer C50.912 Breast location: unspecified site of breast Estrogen receptor status: unspecified Laterality: left Patient sex: female (1) Breast cancer Breast location: unspecified site of breast Estrogen receptor status: unspecified Laterality: left Patient sex: female Qualified Code(s): C50.912 - Malignant neoplasm of unspecified site of left female breast
[2022-05-21] MEDS ORDERED: SODIUM CHLORIDE 0.9% 1000ML 1,000 ML IV SCH (10:45)
--- NOTE | 2022-05-21 11:47 | Ultrasound Report ---
ULTRASOUND KIDNEYS AND BLADDER CLINICAL HISTORY: Acute on chronic renal insufficiency. COMPARISON STUDY: Abdominal CT dated 01/31/2018. TECHNIQUE: Real-time, grayscale, and color flow sonography of the kidneys and bladder is performed. I mages are reviewed in the transverse and longitudinal planes. FINDINGS: Kidneys: The kidneys are normal in size and echotexture. The right kidney measures 10.7 cm in length and the left kidney measures 11.9 cm in length. There is no hydronephrosis. No shadowing renal calcu li are identified. There is no sonographic evidence of contour deforming renal mass lesion. No perine phric fluid is identified. Bladder: The bladder is decompressed and grossly unremarkable. Ureteral jets were not seen. Upper abdomen: The liver appears enlarged and steatotic. Nodularity of the hepatic surface contour levin ggests morphologic changes of cirrhosis. IMPRESSION: 1. The kidneys are normal in size and without hydronephrosis. 2. The bladder was decompressed and grossly unremarkable. ACT 112: Negative or not required by law. Electronically signed by: Sukh Hilario M.D. 05/21/2022 11:46 AM
--- NOTE | 2022-05-21 12:38 | XRay Report ---
TWO VIEW CHEST CLINICAL HISTORY: Congestive heart failure.. FINDINGS: AP and lateral chest radiographs are compared to study dated 02/02/2018. The heart is enlarg ed noting atherosclerotic calcification of the thoracic aorta. There is pulmonary vascular congestion with evidence of interstitial edema. There are small pleural effusions with dependent consolidation. There is no pneumothorax. The skeletal structures are osteopenic. Postoperative change is noted in t he right humerus. Degenerative change and hyperkyphosis is seen in the thoracic spine. IMPRESSION: 1. Cardiomegaly with evidence of congestive failure and pulmonary edema. 2. Small pleural effusions with dependent consolidation. ACT 112: Negative or not required by law. Electronically signed by: Sukh Hilario M.D. 05/21/2022 12:36 PM
[2022-05-21] MEDS ORDERED: FUROSEMIDE 40 MG/4 ML VIAL IV ONE (14:31)
--- NOTE | 2022-05-21 14:34 | Cardiology Consultation ---
Date of Consultation May 21, 2022 Assessment & Plan (1) Mobitz type 1 second degree AV block: (2) (HFpEF) heart failure with preserved ejection fraction: (3) CKD (chronic kidney disease) stage 5, GFR less than 15 ml/min: (4) HTN (hypertension): Plan 72-year-old woman with multiple comorbidities hospitalized for hypercalcemia erroneously noted to have atrial fibrillation by ECG computer reading algorithm. She does have Mobitz type I second-degree AV block, fortunately her heart rate response to activity is appropriate and her transient periods of bradycardia occur only during sleep and are asymptomatic. She is not on any negative chronotropic medications. I educated her about the possibility that this could progress to higher degrees of heart block and eventually require pacemaker, but at this time requires only active surveillance with periodic monitoring of hemod ynamics. I gave her a paper with this diagnosis printed on it that she can convey to her fisher pound net or trap in [place]. She does have a history of heart failure with preserved ejection fraction as well as known coronary artery disease with multiple vascular risk factors (obesity, diabetes, hypertension, dyslipidemia), but she appears euvolemic currently and has no ongoing symptoms to suggest active myocardial ischemia. Her diuretic regimen is somewhat unusual (20 mg furosemide every morning/40 mg every afternoon), I did not recommend changes but did educate her as to the low threshold for increasing the dose of diuretic if she notes abrupt weight gain/progressive edema. No apparent active cardiac issues, please contact Dr. Mak over the weekend if any should arise (he will be covering cardiology for [facility] [place] History of Present Illness Reason for Consultation: Rhythm disturbance Requesting Physician: Sallie Ortiz MD Attending Physician: Sallie Ortiz MD History of Present Illness 72-year-old woman with history of heart failure with preserved ejection fraction, coronary artery disease (chronic total occlusion of RCA with nonocclusive disease elsewhere), diabetes mellitus, breast cancer (currently undergoing chemotherapy with Ibrance and anastrozole), chronic renal insufficiency (recent creatinine in the 34 range) who was admitted with lethargy, confusion, and weakness and found to be moderately hypercalcemic (12.3). Initial ECG showed sinus rhythm, a second ECG was misread by the computer as atrial fibrillation, but is in fact sinus rhythm with Mobitz type I second-degree AV block. At baseline she has some degree of chronic leg edema and takes furosemide 20 mg in the morning and 40 mg in the evening. She habitually sleeps upright, so is unable to assess orthopnea. No PND, dyspnea on exertion during routine activities, and no chest pain. She denies any subjective palpitations, lightheadedness, presyncope, or syncope. No orthostatic symptoms. Telemetry demonstrates sinus rhythm throughout with second-degree AV block Mobitz type I, heart rate varies between the usual 60-70 bpm to a low of 30 bpm during the night while she is sleeping. There is a daytime increase in heart rate to normal rates. No instances of atrial fibrillation seen on telemetry. Patient was comfortable at rest without oxygen at the time of my evaluation Allergies Allergy/AdvReac Type Severity Reaction Status Date / Time amoxicillin Allergy Severe LIPS Verified 05/19/22 17:29 SWELLED, "RED ALL OVER" doxycycline Allergy Severe LIPS Verified 05/19/22 17:29 SWELLED, "RED ALL OVER". cephalexin [From Keflex] Allergy skin Verified 05/19/22 17:29 starts to peel off sulfamethoxazole Allergy Unknown Verified 05/19/22 17:29 [From Bactrim] trimethoprim [From Bactrim] Allergy Unknown Verified 05/19/22 17:29 atorvastatin AdvReac Myalgia Verified 05/19/22 17:29 Home Medications Medication Instructions Recorded Confirmed Type vitamins A,C,S-qbiu-tzhhiq 2,148 1 tab PO DAILY 05/02/19 05/19/22 History mcg-113 mg-45 mg-17.4 mg tablet promethazine 25 mg tablet 25 mg PO Q6H PRN nausea #30 tabs 08/17/19 05/19/22 Rx aspirin 81 mg tablet,delayed 81 mg PO DAILY 11/23/19 05/19/22 History release (Adult Aspirin Regimen) pen needle, diabetic 32 gauge x #600 ea 11/07/20 02/19/21 Rx 5/32" (BD Ultra-Fine Sheila Pen Needle) insulin aspart U-100 100 unit/mL See Rx Instructions subcut 04/29/21 05/19/22 Rx (3 mL) subcutaneous pen (Novolog .COMPLEX #135 mL Flexpen U-100 Insulin aspart) fluconazole 150 mg tablet 150 mg PO Q72H PRN yeast infection 06/10/21 05/19/22 Rx (Diflucan) #2 tabs omega-3 fatty acids 1,000 mg 2,000 mg PO BID #360 caps 09/07/21 05/19/22 Rx capsule allopurinol 100 mg tablet 50 mg PO DAILY #45 tabs 11/17/21 05/19/22 Rx spironolactone 25 mg tablet 12.5 mg PO DAILY #45 tabs 11/17/21 05/19/22 Rx fenofibrate nanocrystallized 145 145 mg PO DAILY #90 tabs 03/23/22 05/19/22 Rx mg tablet cyclobenzaprine 5 mg tablet 5 mg PO TID PRN muscle spasm #30 03/30/22 05/19/22 Rx tabs venlafaxine 75 mg capsule,extended 75 mg PO DAILY #90 caps 04/07/22 05/19/22 Rx release 24 hr furosemide 40 mg tablet 40 mg PO DAILY #90 tabs 04/13/22 05/19/22 Rx insulin glargine 100 unit/mL (3 60 unit (0.6 mL) subcut BID #108 mL 04/27/22 05/19/22 Rx mL) subcutaneous pen (Lantus Solostar U-100 Insulin) tramadol 50 mg tablet 50 mg PO Q6H PRN pain #30 tabs 05/18/22 05/19/22 Rx anastrozole 1 mg tablet 1 mg PO DAILY 05/19/22 05/19/22 History furosemide 20 mg tablet 20 mg PO QPM 05/19/22 05/19/22 History palbociclib 125 mg tablet (Ibrance) 125 mg PO UD 05/19/22 05/19/22 History tramadol 50 mg tablet 50 mg PO Q6 PRN Pain 05/19/22 05/19/22 History Patient History Medical History (Updated 05/21/22 @ 15:12 by Triston Jones MD) JEFFREY (acute kidney injury) post-operative 2017 - short term dialysis Breast cancer diagnosed 2020 Candidal intertrigo Chronic stasis dermatitis CKD (chronic kidney disease) stage 3, GFR 30-59 ml/min CKD (chronic kidney disease) stage 5, GFR less than 15 ml/min Crystal arthropathy Dyslipidemia GERD (gastroesophageal reflux disease) HTN (hypertension) Hyperuricemia MCKENZIE (nonalcoholic steatohepatitis) Seborrheic dermatitis Statin myopathy Type 2 diabetes mellitus Vitamin D deficiency Surgical History History of appendectomy History of tonsillectomy and adenoidectomy Humerus fracture surgical repair Hx of cholecystectomy Family History Father Depression Diabetes Mother Hypertension Kidney stones Gallbladder disease Denies family history of Ovarian cancer Prostate cancer Myocardial infarction Breast cancer Colorectal cancer Social History Smoking Status: Never smoker Second Hand Exposure: No; Do You Dip or Chew Tobacco: No; Tobacco Cessation Education Requested by Patient: No Hx Alcohol Use: No Hx Substance Use: No Preferred Language: Kyrgyz Communication Ability: Effective Visual Impairment: Limited Hearing Ability: Normal Nursery Teacher Required: No Beliefs That Will Affect Care: None marital status: Current Living Situation: Spouse 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 BMI 45. BP mild to moderately hypertensive. Pulse as noted varying from 30 bpm to 70 bpm. Skin: no ecchymoses or generalized lesions. HEENT: unremarkable. Neck: Jugular venous pulse just above the clavicle at 90 degrees, no obvious carotid bruits or transmitted murmur. Lungs: Moderately decreased breath sounds but generally clear. Cardiac: regular rhythm with minimally diminished aortic closure sound, 3/6 crescendo decrescendo systolic ejection murmur heard best at the left upper sternal border and not obviously radiating to the carotids or elsewhere, no diastolic murmur or gallop. Abdomen: benign. Extremities: 2+ largely nonpitting pretibial edema, pulses intact. Neurologic: normal affect and conversation, nonfocal. Results & Data ([facility]) Vital Signs (Past 12 Hours) Vital Signs Temp Pulse Pulse Resp BP Pulse Ox O2 Del Method 05/21/22 11:00 98.2 F 69 20 147/71 H 95 05/21/22 08:00 Room Air 05/21/22 08:00 98.2 F 20 L 69 18 152/60 H 95 05/21/22 02:57 99.0 F 63 18 148/66 H 90 Room Air Laboratory Results Hemoglobin 9.1 with white count of 4.42 and normal platelet count. Sodium 132, potassium 4.0, BUN 53, creatinine 3.64. Calcium declined from 12.3 to 11.2 over the past 2 days. Diagnostic Findings Admission ECG showed sinus bradycardia 57 bpm with first-degree AV block and poor R wave progression. Chest x-ray to my eye appears underpenetrated with poor inspiration, somewhat increased vasculature but no obvious pulmonary edema and only trivial pleural effusions. Echocardiogram showed EF 60 to 65% with mild LVH, mild aortic stenosis, moderate mitral calcification, normal right ventricular systolic pressure. Compared with 2018 study, mild aortic stenosis now seen in right ventricular systolic pressure no longer elevated. PG Care Time/CCT Total # of Minutes Spent Total Time Spent with Patient: Total time spent is greater than 50% in coordination of care (as documented) at patient's floor/unit and/or counseling patient: Coding Level of Care Code 97105 Inpt Consult Level 4 Diagnoses Mobitz type 1 second degree AV block I44.1 (HFpEF) heart failure with preserved ejection fraction I50.30 CKD (chronic kidney disease) stage 5, GFR less than 15 ml/min N18.5 HTN (hypertension) I10
[2022-05-22] MEDS: HEPARIN SOD 5,000 UNIT/0.5 ML VIAL SQ SCH ×3 (04:28→20:09)
[2022-05-22 05:32] LABS: Hematocrit (blood only) 24.5 % (34.1-44.9); Hemoglobin 8.3 g/dl (12.0-16.0); Mean Corpuscular Hemoglobin 35.9 pg (25.0-34.0); Mean Corpuscular Hgb Conc 33.9 g/dL (32.0-36.0); Mean Corpuscular Volume 106.1 fL (80.0-100.0); Mean Platelet Volume 10.3 fL (9.4-12.3); Platelet Count 174 K/uL (130-400); RDW Coefficient of Variation 17.5 % (11.5-14.5); RDW Standard Deviation 67.7 fL (36.4-46.3); Red Blood Count 2.31 M/uL (3.93-5.22); White Blood Count 3.69 K/ul (4.8-10.8)
[2022-05-22 05:49] LABS: BUN Creatinine Ratio 14.6 (10-20); Calcium 11.2 mg/dl (8.5-10.1); Creatinine Clr Calc Pharmacy 14.3 ml/min; Est GFR (African American) 11.7 ml/min; Est GFR (Non-African American) 10.1 ml/min; Potassium 4.4 mmol/L (3.5-5.1)
[2022-05-22 06:05] LABS: Basophils # (auto) 0.04 K/uL (0-0.2); Basophils % (auto) 1.1 %; Eosinophils # (auto) 0.08 K/uL (0-0.50); Eosinophils % (auto) 2.2 %; Immature Granulocytes # (auto) 0.01 K/uL (0.00-0.02); Immature Granulocytes % (auto) 0.3 %; Lymphocytes # (auto) 1.02 K/uL (1.2-3.4); Lymphocytes % (auto) 27.6 %; Monocytes # (auto) 0.24 K/uL (0.24-0.82); Monocytes % (auto) 6.5 %; Neutrophils % (auto) 62.3 %; RBC Morphology Unremarkable
[2022-05-22] MEDS: allopurinoL 100 MG TAB PO SCH (09:02)
[2022-05-22] MEDS: SPIRONOLACTONE 12.5 MG TAB PO SCH (09:03)
[2022-05-22] MEDS: PSYLLIUM or GUAR GUM FIBER POWDER PACKET PO SCH (09:03)
[2022-05-22] MEDS: VENLAFAXINE HCL XR 75 MG CAPXR PO SCH (09:03)
[2022-05-22] MEDS: ASPIRIN 81 MG ECTAB PO SCH (09:03)
[2022-05-22] MEDS: INSULIN ASPART PER UNIT SC SCH ×4 (09:08→20:21)
[2022-05-22] MEDS: LANTUS PER UNIT CHARGE SQ SCH ×2 (09:09→20:44)
[2022-05-22 09:16] LABS: Folate (Folic Acid) 15.92 ng/ml (>5.38)
[2022-05-22] MEDS ORDERED: ACETAMINOPHEN 500 MG TAB PO PRN (10:52)
--- NOTE | 2022-05-22 12:53 | Cardiology Progress Note ---
Date of Service May 22, 2022 Assessment & Plan (1) Mobitz type 1 second degree AV block: Plan 1. AV block: She has Mobitz 1 (Wenckebach) AV block, it is asymptomatic and her heart rate is in the 30s when she is in 2-1 AV block. That occurs at night, and although this arrhythmia may progress at this point we should continue to follow. Over the long run we should get periodic Holter monitors but I would not consider pacemaker at this time. Admission and Anticipated Discharge Date Admission Date: May 19, 2022 Subjective Patient's records reviewed. She has a history of congestive heart failure but with normal left ventricular function and she has coronary artery disease. She has had documentation of Mobitz 1 second-degree AV block but this has been asymptomatic. She is on no AV korina blocking medications. She has had periods of Mobitz 1 second-degree AV block, including periods of 2-1 AV block during the night. Heart rates are as low as the upper 30s while in 2-1 AV block. On her electrocardiogram this morning she is in sinus rhythm with Mobitz 1 second-degree AV block with borderline abnormal interventricular conduction but a QRS duration of less than 110 ms. She is feeling well today. She denies lightheadedness, dizziness or palpitations. She is unaware of her AV block. Physical Exam Physical Exam: Constitutional: Alert, cooperative and in no distress. She is obese. HEENT: Unremarkable Neck: No jugular venous distention, carotid pulses are normal and equal bilaterally without bruits. Pulmonary: Clear to auscultation bilaterally. Cardiac: Regular rhythm with no murmur, gallop or rub. Abdomen: Soft, nontender with normal bowel sounds. Extremities: No edema. Distal pulses intact. Neurologic: No focal findings. Gait was not tested. Skin: No rash, ecchymoses or petechiae. Results & Data ([facility]) Vital Signs (Past 12 Hours) Vital Signs Temp Pulse Resp BP Pulse Ox O2 Del Method 05/22/22 11:54 36.6 C 60 19 139/67 94 Room Air 05/22/22 08:00 Room Air 05/22/22 07:51 36.8 C 61 20 140/57 L 93 Room Air 05/22/22 03:37 36.8 C 67 18 164/75 H 95 Room Air Laboratory Results CBC 05/22/22 Range/Units 05:13 WBC 3.69 L (4.8-10.8) K/ul RBC 2.31 L (3.93-5.22) M/uL Hgb 8.3 L (12.0-16.0) g/dl Hct 24.5 L (34.1-44.9) % Plt Count 174 (130-400) K/uL Neut # (Auto) 2.30 (1.4-6.5) K/uL Lymph # (Auto) 1.02 L (1.2-3.4) K/uL [place] # (Auto) 0.24 (0.24-0.82) K/uL Eos # (Auto) 0.08 (0-0.50) K/uL Baso # (Auto) 0.04 (0-0.2) K/uL Comprehensive Metabolic Panel 05/22/22 Range/Units 05:13 Sodium 132 L (136-145) mmol/L Potassium 4.4 (3.5-5.1) mmol/L Chloride 97 L (98-107) mmol/L Carbon Dioxide 26 (21-32) mmol/L BUN 60 H (6-23) mg/dl Creatinine 4.10 H D (0.6-1.2) mg/dl Glucose 102 H (70-99(Fasting)) mg/dl Calcium 11.2 H (8.5-10.1) mg/dl PG Care Time/CCT Total # of Minutes Spent Total Time Spent with Patient: Total time spent is greater than 50% in coordination of care (as documented) at patient's floor/unit and/or counseling patient: Coding Level of Care Code 79996 Subseq Hosp Care Lvl 2 Diagnoses Mobitz type 1 second degree AV block I44.1
--- NOTE | 2022-05-22 13:00 | Nephrology Progress Note ---
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 Cr has been highly variable depending upon volume status (recent creatinine values per records ~3.2 mg/dL). * h/o JEFFREY on CKD 2018 requiring acute inpatient HD * (3) Hypercalcemia: Plan: * Non-PTH mediated * PTHrp, SPEP, and KODY level pending * Alkaline phosphatase is wnl * Bone scan in December demonstrated trace uptake in T10, L1, and L4. Follow up CT requested. No acute symptoms but some chronic LBP. Also noted was a focal area of uptake in the mid tibia. * If patient fails to respond to hydration/diuresis, consider Denosumab therapy (4) Breast cancer: Plan: * On Ibrance, Anastrozole as directed by Oncology at [facility] * Therapy held in setting of JEFFREY and hypercalcemia Admission and Anticipated Discharge Date Admission Date: May 19, 2022 Subjective No acute events overnight. Pauline reports feeling reasonably well today. She denies pain. No constipation. Appetite fair. No shortness of breath. Notable LE edema persists. Some improvement now that using recliner. Back pain and sciatica improved while using recliner. Chronic sciatica. Mild lower back discomfort positional in nature. Review of Systems Review of Systems: All systems reviewed & are unremarkable except as noted in HPI & below Physical Exam Constitutional: well developed and + morbidly obese; no acute distress Eyes: no scleral abnormality and no corneal abnormality ENMT: Mouth: no oral mucosal abnormality and oral mucous membranes not dry Neck: normal visual inspection and trachea midline Respiratory: normal respiratory effort Auscultation: lungs clear to auscultation bilaterally Cardiovascular: Rate/Rhythm: regular rate Heart Sounds: normal S1 and normal S2 Extremities: + edema and + varicosities Musculoskeletal: Extremities: no cyanosis and no clubbing Skin: + turgor decreased; no lesions Neurologic: Motor/Sensory: no tremor and no asterixis Psychiatric: Orientation: alert and oriented x 3 Results & Data ([facility]) Vital Signs (Past 12 Hours) Vital Signs Temp Pulse Resp BP Pulse Ox O2 Del Method 05/22/22 11:54 36.6 C 60 19 139/67 94 Room Air 05/22/22 08:00 Room Air 05/22/22 07:51 36.8 C 61 20 140/57 L 93 Room Air 05/22/22 03:37 36.8 C 67 18 164/75 H 95 Room Air Laboratory Results Laboratory Results - last 24 hr 05/21/22 05/21/22 05/21/22 17:57 18:15 18:55 WBC RBC Hgb Hct MCV MCH MCHC RDW Std Deviation RDW Coeff of Amparo Plt Count MPV Immature Gran % (Auto) Neut % (Auto) Lymph % (Auto) [place] % (Auto) Eos % (Auto) Baso % (Auto) Neut # (Auto) Lymph # (Auto) [place] # (Auto) Eos # (Auto) Baso # (Auto) Immature Gran # (Auto) RBC Morphology Sodium Potassium Chloride Carbon Dioxide Anion Gap BUN Creatinine Est Cr Clr Drug Dosing Est GFR ( Amer) Est GFR (Non-Af Amer) BUN/Creatinine Ratio Glucose POC Glucose 122 H Calcium Total Protein (PEP) Albumin (PEP) Rmmjb-2-Dhmjlntok Ffztf-8-Mpfvufcar Xcpc-1-Wgoiewci Lkqv-2-Xwtthdex Gamma Globulins Monoclonal Peak 3 Ser Monoclonl Protein Ser Monoclonal Prot 2 PEP Interpretation Angiotensin Convert Enz Vitamin B12 Folate PTH Related Protein Ur Random Creatinine 21.0 Ur Random Sodium 101 Blood Type Antibody Screen 05/21/22 05/22/22 05/22/22 20:12 05:13 05:13 WBC RBC Hgb Hct MCV MCH MCHC RDW Std Deviation RDW Coeff of Amparo Plt Count MPV Immature Gran % (Auto) Neut % (Auto) Lymph % (Auto) [place] % (Auto) Eos % (Auto) Baso % (Auto) Neut # (Auto) Lymph # (Auto) [place] # (Auto) Eos # (Auto) Baso # (Auto) Immature Gran # (Auto) RBC Morphology Sodium 132 L Potassium 4.4 Chloride 97 L Carbon Dioxide 26 Anion Gap 9 BUN 60 H Creatinine 4.10 H D Est Cr Clr Drug Dosing 14.3 Est GFR ( Amer) 11.7 Est GFR (Non-Af Amer) 10.1 BUN/Creatinine Ratio 14.6 Glucose 102 H POC Glucose 139 H Calcium 11.2 H Total Protein (PEP) Pending Albumin (PEP) Pending Mndoz-1-Jvetfstat Pending Eyvox-1-Oytbbckqh Pending Vblk-3-Valuqrzc Pending Jfgj-9-Woxyjpin Pending Gamma Globulins Pending Monoclonal Peak 3 Pending Ser Monoclonl Protein Pending Ser Monoclonal Prot 2 Pending PEP Interpretation Pending Angiotensin Convert Enz Pending Vitamin B12 Folate PTH Related Protein Pending Ur Random Creatinine Ur Random Sodium Blood Type Antibody Screen 05/22/22 05/22/22 05/22/22 05:13 07:50 07:57 WBC 3.69 L RBC 2.31 L Hgb 8.3 L Hct 24.5 L MCV 106.1 H MCH 35.9 H MCHC 33.9 RDW Std Deviation 67.7 H RDW Coeff of Amparo 17.5 H Plt Count 174 MPV 10.3 Immature Gran % (Auto) 0.3 Neut % (Auto) 62.3 Lymph % (Auto) 27.6 [place]igg % (Auto) 6.5 Eos % (Auto) 2.2 Baso % (Auto) 1.1 Neut # (Auto) 2.30 Lymph # (Auto) 1.02 L [place] # (Auto) 0.24 Eos # (Auto) 0.08 Baso # (Auto) 0.04 Immature Gran # (Auto) 0.01 RBC Morphology Unremarkable Sodium Potassium Chloride Carbon Dioxide Anion Gap BUN Creatinine Est Cr Clr Drug Dosing Est GFR ( Amer) Est GFR (Non-Af Amer) BUN/Creatinine Ratio Glucose POC Glucose 124 H Calcium Total Protein (PEP) Albumin (PEP) Wgwka-1-Pvntcrksz Trazd-7-Ckiyzmqpv Shmc-9-Jlzzlrkb Jgik-8-Qytfayij Gamma Globulins Monoclonal Peak 3 Ser Monoclonl Protein Ser Monoclonal Prot 2 PEP Interpretation Angiotensin Convert Enz Vitamin B12 368 Folate 15.92 PTH Related Protein Ur Random Creatinine Ur Random Sodium Blood Type Antibody Screen 05/22/22 05/22/22 07:57 12:00 WBC RBC Hgb Hct MCV MCH MCHC RDW Std Deviation RDW Coeff of Amparo Plt Count MPV Immature Gran % (Auto) Neut % (Auto) Lymph % (Auto) [place] % (Auto) Eos % (Auto) Baso % (Auto) Neut # (Auto) Lymph # (Auto) [place] # (Auto) Eos # (Auto) Baso # (Auto) Immature Gran # (Auto) RBC Morphology Sodium Potassium Chloride Carbon Dioxide Anion Gap BUN Creatinine Est Cr Clr Drug Dosing Est GFR ( Amer) Est GFR (Non-Af Amer) BUN/Creatinine Ratio Glucose POC Glucose 142 H Calcium Total Protein (PEP) Albumin (PEP) Sedpi-5-Furypdatx Ptgvb-8-Imwfqfkvf Tyna-7-Uykcppxh Yfmk-5-Rrbamxwk Gamma Globulins Monoclonal Peak 3 Ser Monoclonl Protein Ser Monoclonal Prot 2 PEP Interpretation Angiotensin Convert Enz Vitamin B12 Folate PTH Related Protein Ur Random Creatinine Ur Random Sodium Blood Type O Positive Antibody Screen NEGATIVE PG Care Time/CCT Total # of Minutes Spent Total Time Spent with Patient: Total time spent is greater than 50% in coordination of care (as documented) at patient's floor/unit and/or counseling patient: Coding Level of Care Code 61737 Subseq Hosp Care Lvl 3 Diagnoses Acute kidney injury N17.9 Chronic kidney disease, stage III (moderate) N18.30 Hypercalcemia E83.52 Breast cancer C50.912 Breast location: unspecified site of breast Estrogen receptor status: unspecified Laterality: left Patient sex: female (1) Breast cancer Breast location: unspecified site of breast Estrogen receptor status: unspecified Laterality: left Patient sex: female Qualified Code(s): C50.912 - Malignant neoplasm of unspecified site of left female breast
--- NOTE | 2022-05-22 15:11 | Hospitalist Progress Note ---
Date of Service May 22, 2022 Assessment & Plan (1) Hypercalcemia: Plan: Pt is 72 yo female with PMH of stage 5 CKD, CHF, MCKENZIE, GERD, HTN, DM, and dyslipidemia presenting for hypercalcemia on outpatient labs associated with weakness, fatigue, and loss of appetite. Hypercalcemia - Ca 12.3 corrected to 12.5 upon admission. Symptomatic with muscle weakness, fatigue, and mild confusion - PTH 11.6 (low), Mg 2.4, PO 2.4, TSH 1.71 - Prior 25-hydroxy vit D WNL in February, 25-hydroxy vit D low (05/21) - PTHrp, 25 and 1,25-vitamin D, SPEP, pending - Anastrazole held d/t possibility of causing hypercalcemia - pt's was told by doc at [facility] [place] that Ibrance could cause Ca problems - Received aggressive hydration for first 24 hours - IV lasix dose (05/20, 05/21) and resumed home spironolactone for concern of fluid overload - No fluids since 05/20, continue holding - Hold any further lasix today - Ca stable at 11.2 this AM - consider Denosumab if calcium level worsens, but they appear to be stable Acute exacerbation of HFpEF - with underlying worsening kidney function. - CXR- cardiomegaly with congestive failure and pulmonary edema, small pleural effusions - Fluids as above - monitor Is and Os - Holding home furosemide 40 mg in AM, 20 mg in PM; continue spironolactone 12.5 mg daily. - Trend BMPs Recent rise in creatinine in setting of stage 3 CKD - Baseline Cr in 2018= 2.0 - Unclear what caused progression from 2019 to February 2022 but appears stable since then - Cr 4.10 today, eGFR 10.1 - renal US- normal - renal consulted. Second degree heart block (Mobitz 1) - Noted 05/20. Not on any neg inotrope. cardio recommends active surveillance with periodic holter outpatient Hyponatremia - mildly low. follow - Stable at 132 MCKENZIE - Monitor for fluid overload HTN - Most recent 139/67 DM - HbA1C 7.3 in February. No need to repeat. - controlled at home with insulin glargine and aspart - Pharmacy recommends: - basal= lantus 30 units 1x 05/20/2022 then 20-40 units scale based on BSG BID - bolus= novolog per scale ACHS or q6hr while NPO - goal range= 110-140 mg/dL - correction factor= 20 mg/dL/unit - nutritional/prandial insulin per carb ratio of 1 unit per 7 grams CHO Breast cancer in current tx - pt on Ibrance and anastrozole, following with Andrew - Pt has completed 1 month (3 weeks of med, 1 week free) of Ibrance without issue - She is entering her med free week Morbid obesity with BMI 45.7 - to consider outpatient weight management referral GERD - no home tx noted (2) CKD (chronic kidney disease) stage 5, GFR less than 15 ml/min: (3) MCKENZIE (nonalcoholic steatohepatitis): (4) GERD (gastroesophageal reflux disease): (5) HTN (hypertension): (6) Type 2 diabetes mellitus: (7) Breast cancer: (8) Mobitz type 1 second degree AV block: Plan FEN: DM diet, NS 1 L today, no maintenance fluids VTE Prophylaxis: heparin 7500 units q8h (pt refuses) Disposition: med/tele Admission and Anticipated Discharge Date Admission Date: May 19, 2022 Supervising Physician Co-Signing Physician Notes I also saw the patient and confirmed barrett portions of the history and physical examination. I agree with the impression and plan as noted in the resident documentation. The resident I saw the patient around noon; family at bedside and the patient was eating lunch. She had no complaints. Exam 139/67, 60, 19, 36.6, 94% on room air Pleasant. Alert. Heart regular Respirations nonlabored; slight crackles in the bases bilaterally Data WBC 3.69, hemoglobin 8.3, platelet count 174 Sodium 132, potassium 4.4, chloride 97, BUN 60, creatinine 4.10 Calcium 11.2 Vitamin B12 368 Folate 15.92 PTH related protein is pending Chest x-ray dated 05/21/2022 shows cardiomegaly with evidence of congestive failure and pulmonary edema, small pleural effusions with dependent consolidation CT scan of the lumbar spine is pending at time of dictation Impression and plan JEFFREY CKD, stage III Appreciate nephrology consultation Hold on fluids and diuretics today Repeat BMP in a.m. Blood work for sarcoid and monoclonal process pending Hypercalcemia PTH related peptide, SPEP, and KODY level are pending Breast cancer On Ibrance, anastrozole, currently on hold Not on a bisphosphonate although it sounds as if this was discussed previously with her oncologist Additional per resident documentation Subjective Pt is 72 yo female with PMH of stage 5 CKD, CHF, MCKENZIE, GERD, HTN, DM, and dyslipidemia presenting for hypercalcemia on outpatient labs associated with weakness, fatigue, and loss of appetite. 05/20/2022: On Tuesday she was told of her lab results by her PCP. Her and her went to the fair on Tuesday and her noticed a decrease in her appetite. Same lack of appetite on Tuesday. The addition of weakness and fatigue prompted her to come into the hospital. Pt feeling better today. She "doesn't feel like she could climb a hill" but is feeling better than last night. Pt is able to walk around her room to her bedside commode with her walker (which she uses at home). Pt's also tells me that she recalls a doctor at [facility] [place] telling her that high calcium can be caused by her cancer med Ibrance. Her also says that the patient is to start a bisphosphonate soon but she needs dental clearance first. Pt denies SOB, chest pain, leg pain. 05/21/2022: Pt feeling well today. Overnight she explains that her heart had an episode that was "due to her heart failure" and not receiving diuretics. Originally it was thought that she went into Afib but it was determined that her telemetry showed 2nd degree (mobitz I) heart block. Pt denies SOB, lightheadedness, chest pain, leg pain, dizziness. Cardio and nephro consulted today. 05/22/2022: Pt doing well, without complaints. Pt eating and drinking well. Denies SOB, lightheadedness, chest pain, leg pain, or bleeding. Physical Exam Constitutional: NAD. Vitals WNL. Eyes: no conjunctival abnormality Respiratory: Minimal crackles in BL lung bases. No rhonchi or wheezing. Non labored breathing. Cardiovascular: RRR. No murmur noted. BL LE 1+ edema, L>R Gastrointestinal (Abdomen): Nontender, +BS. No masses noted. Skin: Brawny induration of BL LE from ankle to mid calf Psychiatric: Alert. Mood and affect congruent. Results & Data Results & Data ([facility]) Vital Signs (Past 12 Hours) Vital Signs Temp Pulse Resp BP Pulse Ox O2 Del Method 05/22/22 11:54 36.6 C 60 19 139/67 94 Room Air 05/22/22 08:00 Room Air 05/22/22 07:51 36.8 C 61 20 140/57 L 93 Room Air 05/22/22 03:37 36.8 C 67 18 164/75 H 95 Room Air (1) Breast cancer Breast location: unspecified site of breast Estrogen receptor status: unspecified Laterality: left Patient sex: female Qualified Code(s): C50.912 - Malignant neoplasm of unspecified site of left female breast
--- NOTE | 2022-05-22 15:57 | Electrocardiogram Report ---
Test Reason : Blood Pressure : / mmHG Vent. Rate : 066 BPM Atrial Rate : 078 BPM P-R Int : 000 ms QRS Dur : 106 ms QT Int : 398 ms P-R-T Axes : 010 064 035 degrees QTc Int : 417 ms Sinus rhythm with 2nd degree A-V block (Mobitz I) Anterolateral infarct (cited on or before 19-MAY-2022) Abnormal ECG When compared with ECG of 22-MAY-2022 03:00, (unconfirmed) No significant change Confirmed by Nabeel Marcelo ([id number]) on 05/22/2022 3:57:18 PM Referred By: REFERRED SELF Confirmed By:Nabeel Marcelo
--- NOTE | 2022-05-22 15:57 | Electrocardiogram Report ---
Test Reason : Blood Pressure : / mmHG Vent. Rate : 069 BPM Atrial Rate : 083 BPM P-R Int : 000 ms QRS Dur : 106 ms QT Int : 396 ms P-R-T Axes : 000 068 022 degrees QTc Int : 424 ms Sinus rhythm with 2nd degree A-V block (Mobitz I) Premature ventricular complexes Anterolateral infarct (cited on or before 19-MAY-2022) Abnormal ECG When compared with ECG of 20-MAY-2022 20:28, No significant change Confirmed by Nabeel Marcelo ([id number]) on 05/22/2022 3:56:42 PM Referred By: REFERRED SELF Confirmed By:Nabeel Marcelo
--- NOTE | 2022-05-22 18:06 | CT Scan Report ---
CT SCAN OF THE LUMBAR SPINE WITHOUT IV CONTRAST CLINICAL HISTORY: Low back pain. Hypercalcemia. Breast cancer. COMPARISON STUDY: Abdominal CT dated 01/31/2018. TECHNIQUE: CT scan of the lumbar spine is performed from the lower thoracic spine to sacrum. Images a re reviewed in the axial, sagittal, and coronal planes. IV contrast was not administered for this exa mination. A dose lowering technique was utilized adhering to the principles of ALARA. The examination is degraded by large body habitus, and by streak artifact from the body wall abutting the CT gantry. CT DOSE: 973.99 mGy.cm FINDINGS: The skeletal structures are osteopenic. There is no evidence of acute fracture or malalignm ent involving the lumbar spine. Vertebral body height and alignment are maintained throughout the lum bar spine. Anterior and lateral marginal osteophytes are seen throughout. The transverse and spinous processes appear intact. Osteoblastic lesions are noted in the bodies of L1 and L4. Facet arthropathy is noted in the lower lumbar region. There is advanced disc space narrowing at L3-L4, L4-L5, and L5- S1 with associated endplate sclerosis. Mild disc space narrowing is seen at the remaining lumbar leve ls. Small posterior disc osteophyte complexes are noted in the lumbar levels. There is no CT evidence of high-grade central canal stenosis. There is no spondylolysis. There is fatty atrophy of the aashish pinous musculature. Pleural effusions are partially imaged. There is moderate atherosclerotic calcifi cation of the abdominal aorta which is normal in caliber. Mildly enlarged retroperitoneal lymph nodes measure up to 12 mm in short axis. IMPRESSION: 1. No acute bony abnormality is seen involving the lumbar spine. 2. 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 These are new from the 018 examination. 3. Osteopenia and spondylotic change as above. 4. Pleural effusions are partially imaged. ACT 112: Negative or not required by law. Dictated: 05/22/2022 3:04 PM Transcribed: 05/22/2022 4:53 PM Samreen [id number] [email or web address] Electronically signed by: Sukh Hilario M.D. 05/22/2022 6:05 PM
[2022-05-23] MEDS: HEPARIN SOD 5,000 UNIT/0.5 ML VIAL SQ SCH ×3 (04:27→20:50)
[2022-05-23 06:16] LABS: Hemoglobin 8.2 g/dl (12.0-16.0); Mean Corpuscular Hemoglobin 35.5 pg (25.0-34.0); Mean Corpuscular Hgb Conc 34.2 g/dL (32.0-36.0); Mean Corpuscular Volume 103.9 fL (80.0-100.0); Mean Platelet Volume 10.6 fL (9.4-12.3); Platelet Count 187 K/uL (130-400); RDW Coefficient of Variation 17.1 % (11.5-14.5); RDW Standard Deviation 64.1 fL (36.4-46.3); Red Blood Count 2.31 M/uL (3.93-5.22); White Blood Count 3.11 K/ul (4.8-10.8)
[2022-05-23 06:45] LABS: BUN Creatinine Ratio 16.5 (10-20); Calcium 11.1 mg/dl (8.5-10.1); Creatinine Clr Calc Pharmacy 14.9 ml/min; Est GFR (African American) 12.2 ml/min; Est GFR (Non-African American) 10.6 ml/min; Potassium 3.9 mmol/L (3.5-5.1)
[2022-05-23 07:04] LABS: Basophils # (auto) 0.04 K/uL (0-0.2); Basophils % (auto) 1.3 %; Eosinophils # (auto) 0.07 K/uL (0-0.50); Eosinophils % (auto) 2.3 %; Immature Granulocytes # (auto) 0.01 K/uL (0.00-0.02); Immature Granulocytes % (auto) 0.3 %; Lymphocytes # (auto) 0.86 K/uL (1.2-3.4); Lymphocytes % (auto) 27.7 %; Monocytes # (auto) 0.17 K/uL (0.24-0.82); Monocytes % (auto) 5.5 %; Neutrophils # (auto) 1.96 K/uL (1.4-6.5); Neutrophils % (auto) 62.9 %
[2022-05-23] MEDS: allopurinoL 100 MG TAB PO SCH (08:45)
[2022-05-23] MEDS: VENLAFAXINE HCL XR 75 MG CAPXR PO SCH (08:45)
[2022-05-23] MEDS: ASPIRIN 81 MG ECTAB PO SCH (08:45)
[2022-05-23] MEDS: INSULIN ASPART PER UNIT SC SCH ×4 (08:51→20:50)
[2022-05-23] MEDS: LANTUS PER UNIT CHARGE SQ SCH ×2 (08:52→21:12)
[2022-05-23] MEDS: PSYLLIUM or GUAR GUM FIBER POWDER PACKET PO SCH (08:53)
--- NOTE | 2022-05-23 09:15 | Pharmacy Report ---
Pharmacy Glycemic Short Note 2 - Date of Service May 23, 2022 - Glycemic Short BSG Results (Last 24 hours): 05/22/22 05/22/22 05/22/22 12:00 17:03 20:10 Glucose POC Glucose 142 H 148 H 124 H 05/23/22 05/23/22 05:22 08:00 Glucose 117 H POC Glucose 141 H OUTPATIENT ANTIDIABETIC REGIMEN: * Lantus 60 units SC BID * Humalog sliding scale with meals up to 225 units per day * HbA1c = 7.3% (03/11/22) ASSESSMENT: 05/23/22 * Patient's BSGs yesterday were 443-114-285-124 mg/dL. Patient received 72 units of insulin (50 units of basal and 22 units of bolus). * Fasting today is 141 mg/dL. * Will continue Lantus 25 units BID (20 units available if BSG < 110 mg/dL). Patient's regimen is basal heavy but fasting BSGs support this. * BSGs steady throughout the day so continue Novolog. 05/21: * Pauline received 76 units of insulin yesterday (60 units basal + 16 units bolus). BSGs were acceptable: 115-495-007-180-170 mg/dL. * Fasting BSG improved to 128 mg/dL this AM. Regimen is currently basal heavy. Given improvement in fasting and degree of kidney impairment, will reduce basal by 20% today. May need to continue titrating down basal dose over the next few days if kidney function does not improve. * No change in Novolog dosing today. 05/20: * 72 y/o F admitted for hypercalcemia. Patient with history of Type 2 diabetes managed on basal and bolus insulins at home probably around 320 units/day t otal from looking at medication history. HbA1c is 7.3% from 03/11/22 indicating that she is pretty well controlled given her age and comorbidities. * Patient also has history of CKD. * Pharmacy consulted for glycemic control yesterday. * Basal Lantus was given at 40 units last night which is ~30% reduced from home. Fasting BSG today was 169 mg/dl. Lantus 30 units given this AM (50% reduced from home dose). * Novolog was started last night based on wt and stress of 3. Continued this at breakfast. Pre-lunch BSG = 178 mg/dl. Loosened Novolog parameters to stress of 2 for this evening. Patient seems to have limited food intake. * Basal Insulin dose scale added for HS based on BSG. PLAN FOR INPATIENT GLYCEMIC CONTROL: * Basal insulin * Lantus 25 units SC BID (20 units if BSG < 120 mg/dL) * Bolus insulin * NovoLog per scale ACHS or Q6hrs while NPO * Goal Range: Low 110 mg/dL - High 140 mg/dL * Correction Factor: 20 mg/dL/unit * Nutritional / Prandial insulin per carb ratio of 1 unit per 7 grams CHO consumed
--- NOTE | 2022-05-23 09:28 | Medical Student Progress Note ---
Date of Service May 23, 2022 Assessment & Plan (1) (HFpEF) heart failure with preserved ejection fraction: (2) Acute kidney injury: (3) Chronic kidney disease, stage III (moderate): (4) Hypercalcemia: (5) Breast cancer: Breast location: unspecified site of breast Estrogen receptor status: unspecified Laterality: left Patient sex: female Qualified Code(s): C50.912 - Malignant neoplasm of unspecified site of left female breast (6) HTN (hypertension): (7) Type 2 diabetes mellitus: Admission and Anticipated Discharge Date Admission Date: May 19, 2022 Anjel Carpenter is a 72 year old female who presented to the ED 4 days ago (05/19) with chief concern of hypercalcemia on outpatient labs and associated fatigue, confusion, and weakness. Results & Data ([facility]) Vital Signs (Past 12 Hours) Vital Signs Temp Pulse Pulse Resp BP Pulse Ox O2 Del Method 05/23/22 08:01 36.9 C 62 19 143/56 H 96 Room Air 05/23/22 04:15 36.7 C 63 18 185/73 H 95 05/23/22 00:11 36.8 C 67 20 158/59 H 97 05/22/22 23:51 71
[2022-05-23] MEDS ORDERED: FUROSEMIDE 40 MG/4 ML VIAL IV ONE (10:25)
--- NOTE | 2022-05-23 12:24 | Nephrology Progress Note ---
Date of Service May 23, 2022 Assessment & Plan (1) Acute kidney injury: Plan: * JEFFREY, in the setting of hypercalcemia and associated intravascular volume depletion * Creatinine stable * Non-oliguric * Increased total body water * Furosemide to be restarted today to encourage slightly negative fluid balance * 05/17 urinalysis is + for protein and WBCs: cannot exclude AIN (unlikely but possible this could be associated with anastrozole, Ibrance, or sarcoidosis (KODY pending)) * Certainly consider that Ibrance or Anastrozole may contribute to JEFFREY but clinical progression suggests that JEFFREY was hypercalcemia mediated * Serologic evaluation for sarcoid and monoclonal process are pending * No emergent indication for ROBOT TECHNICIAN but I did discuss future indications and the importance of advanced access planning * Medications are appropriate for kidney function * Document strict I/O's * Repeat metabolic profile tomorrow AM (2) Chronic kidney disease, stage III (moderate): Plan: * Baseline Cr has been ~3.0 or greater * h/o JEFFREY on CKD 2018 requiring acute inpatient HD * Will require close outpatient follow up with Dr. Varner after discharge (3) Hypercalcemia: Plan: * Non-PTH mediated * PTHrp, SPEP, and KODY level pending * Lumbar CT demonstrates osteoblastic lesions * Bone scan in December demonstrated trace uptake in T10, L1, and L4 * I would consider Denosumab therapy which should be coordinated as an outpatient post discharge (4) Breast cancer: Plan: * Ibrance and Anastrozole directed by Oncology at [facility] * Close outpatient follow up with oncology will be required * Therapy held in setting of JEFFREY and hypercalcemia Admission and Anticipated Discharge Date Admission Date: May 19, 2022 Subjective No acute events overnight. Pauline reports feeling well this AM. She reports feeling slightly tired but otherwise no concerns. Appetite is good. Edema stable. Some dyspnea reported overnight. She does admit to some increased orthopnea. Breathing reasonably comfortable when sitting up in a chair. Plan of care discussed with Dr. Brian this AM. Review of Systems Review of Systems: All systems reviewed & are unremarkable except as noted in HPI & below Physical Exam Constitutional: well developed and + morbidly obese; no acute distress Eyes: no scleral abnormality and no corneal abnormality ENMT: Mouth: no oral mucosal abnormality and oral mucous membranes not dry Neck: normal visual inspection and trachea midline Respiratory: normal respiratory effort Auscultation: lungs clear to auscultation bilaterally Cardiovascular: Rate/Rhythm: regular rate Heart Sounds: normal S1 and normal S2 Extremities: + edema and + varicosities Musculoskeletal: Extremities: no cyanosis and no clubbing Skin: + turgor decreased; no lesions Neurologic: Motor/Sensory: no tremor and no asterixis Psychiatric: Orientation: alert and oriented x 3 Results & Data ([facility]) Vital Signs (Past 12 Hours) Vital Signs Temp Pulse Resp BP Pulse Ox O2 Del Method 05/23/22 12:10 36.4 C L 71 19 148/55 H 96 Room Air 05/23/22 08:00 Room Air 05/23/22 08:01 36.9 C 62 19 143/56 H 96 Room Air 05/23/22 04:15 36.7 C 63 18 185/73 H 95 Laboratory Results Laboratory Results - last 24 hr 05/22/22 05/22/22 05/23/22 17:03 20:10 05:22 WBC RBC Hgb Hct MCV MCH MCHC RDW Std Deviation RDW Coeff of Amparo Plt Count MPV Immature Gran % (Auto) Neut % (Auto) Lymph % (Auto) Winston % (Auto) Eos % (Auto) Baso % (Auto) Neut # (Auto) Lymph # (Auto) Winston # (Auto) Eos # (Auto) Baso # (Auto) Immature Gran # (Auto) Sodium 131 L Potassium 3.9 Chloride 97 L Carbon Dioxide 24 Anion Gap 10 BUN 65 H Creatinine 3.94 H Est Cr Clr Drug Dosing 14.9 Est GFR ( Amer) 12.2 Est GFR (Non-Af Amer) 10.6 BUN/Creatinine Ratio 16.5 Glucose 117 H POC Glucose 148 H 124 H Calcium 11.1 H 05/23/22 05/23/22 05:22 08:00 WBC 3.11 L RBC 2.31 L Hgb 8.2 L Hct 24.0 L MCV 103.9 H MCH 35.5 H MCHC 34.2 RDW Std Deviation 64.1 H RDW Coeff of Amparo 17.1 H Plt Count 187 MPV 10.6 Immature Gran % (Auto) 0.3 Neut % (Auto) 62.9 Lymph % (Auto) 27.7 Winston % (Auto) 5.5 Eos % (Auto) 2.3 Baso % (Auto) 1.3 Neut # (Auto) 1.96 Lymph # (Auto) 0.86 L Winston # (Auto) 0.17 L Eos # (Auto) 0.07 Baso # (Auto) 0.04 Immature Gran # (Auto) 0.01 Sodium Potassium Chloride Carbon Dioxide Anion Gap BUN Creatinine Est Cr Clr Drug Dosing Est GFR ( Amer) Est GFR (Non-Af Amer) BUN/Creatinine Ratio Glucose POC Glucose 141 H Calcium PG Care Time/CCT Total # of Minutes Spent Total Time Spent with Patient: Total time spent is greater than 50% in coordination of care (as documented) at patient's floor/unit and/or counseling patient: Coding Level of Care Code 28383 Subseq Hosp Care Lvl 3 Diagnoses Acute kidney injury N17.9 Chronic kidney disease, stage III (moderate) N18.30 Hypercalcemia E83.52 Breast cancer C50.912 Breast location: unspecified site of breast Estrogen receptor status: unspecified Laterality: left Patient sex: female (1) Breast cancer Breast location: unspecified site of breast Estrogen receptor status: unspecified Laterality: left Patient sex: female Qualified Code(s): C50.912 - Malignant neoplasm of unspecified site of left female breast
--- NOTE | 2022-05-23 14:59 | Hospitalist Progress Note ---
Date of Service May 23, 2022 Assessment & Plan (1) Hypercalcemia: Plan: Pt is 72 yo female with PMH of stage 5 CKD, CHF, MCKENZIE, GERD, HTN, DM, and dyslipidemia presenting for hypercalcemia on outpatient labs associated with weakness, fatigue, and loss of appetite. Hypercalcemia - Ca 12.3 corrected to 12.5 upon admission. 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 - [place]'s [place] [facility] [place] cause Ca problems - at this point, most likely caused by JEFFREY with osteoblastic lesions of spine contributing - Received aggressive hydration for first 24 hours - IV lasix dose (05/20, 05/21) and held home spironolactone for concern of fluid overload - IV lasix held (05/22) - 40 mg IV lasix given x1 today - No fluids since 05/20, continue holding - Ca stable at 11.1 this AM - consider Denosumab for outpatient therapy- case management consulted JEFFREY in setting of stage 3 CKD - Baseline Cr in 2018= 2.0 - Unclear what caused progression from 2019 to February 2022 but appears stable since then - Cr 3.94 today, eGFR 10.6 - renal US- normal - renal consulted Acute exacerbation of HFpEF - clinically wet today with crackles in lung bases and increased LE edema - CXR- cardiomegaly with congestive failure and pulmonary edema, small pleural effusions - Fluids and lasix as above - monitor Is and Os - Holding home furosemide 40 mg in AM, 20 mg in PM; holding spironolactone 12.5 mg daily - Trend BMPs Second degree heart block (Mobitz 1) - Noted 05/20. Not on any neg inotrope. cardio recommends active surveillance with periodic holter outpatient Hyponatremia - mildly low. follow - Stable at 131 MCKENZIE - Monitor for fluid overload HTN - Most recent 147/75 DM - HbA1C 7.3 in February. No need to repeat. - controlled at home with insulin glargine and aspart - Pharmacy recommends: - basal= lantus 25 units BID, 20 units if BG <120 - bolus= novolog per scale ACHS or q6hr while NPO - goal range= 110-140 mg/dL - correction factor= 20 mg/dL/unit - nutritional/prandial insulin per carb ratio of 1 unit per 7 grams CHO Breast cancer in current tx - pt on Ibrance and anastrozole, following with Andrew - Pt has completed 1 month (3 weeks of med, 1 week free) of Ibrance without issue - She is entering her med free week Morbid obesity with BMI 45.7 - to consider outpatient weight management referral GERD - no home tx noted (2) CKD (chronic kidney disease) stage 5, GFR less than 15 ml/min: (3) MCKENZIE (nonalcoholic steatohepatitis): (4) GERD (gastroesophageal reflux disease): (5) HTN (hypertension): (6) Type 2 diabetes mellitus: (7) Breast cancer: (8) Mobitz type 1 second degree AV block: Plan FEN: DM diet, no maintenance fluids Consults: case management DVT Prophylaxis: heparin 7500 units q8h (pt refuses) Disposition: med/tele Admission and Anticipated Discharge Date Admission Date: May 19, 2022 Supervising Physician Co-Signing Physician Notes I also saw the patient and confirmed barrett portions of the history and physical examination. I agree with the impression and plan as noted in the resident do cumentation. Patient with some dyspnea with exertion last evening. She may have had some orthopnea as well although this improves with elevation of the bed. Exam 147/75, 56, 19, 36.9, 95% room air Pleasant. Alert. Heart regular Respirations nonlabored; slight crackles in the bases bilaterally Data WBC 3.11, hemoglobin 8.2, platelet 187 Sodium 131, potassium 3.9, BUN 65, creatinine 3.94 Calcium 11.1 Vitamin B12 368 Folate 15.92 PTH related protein is pending Chest x-ray dated 05/21/2022 shows cardiomegaly with evidence of congestive failure and pulmonary edema, small pleural effusions with dependent consolidation CT scan of the lumbar spine demonstrates a positive blastic metastatic lesions in the bodies of L1 and L4. Impression and plan JEFFREY CKD, stage III Trending more on the wet side today, so Lasix 40 mg IV x1 Repeat BMP in AM Blood work for sarcoid and monoclonal process pending Hypercalcemia PTH related peptide, SPEP, and KODY level are pending Discussed Denosumab as outpatient Breast cancer On Ibrance, anastrozole, currently on hold Not on a bisphosphonate although it sounds as if this was discussed previously with her oncologist Additional per resident documentation Subjective Pt is 72 yo female with PMH of stage 5 CKD, CHF, MCKENZIE, GERD, HTN, DM, and dyslipidemia presenting for hypercalcemia on outpatient labs associated with weakness, fatigue, and loss of appetite. 05/20/2022: On Tuesday she was told of her lab results by her PCP. Her [place] the [place] and her noticed a decrease in her appetite. Same lack of appetite on Tuesday. The addition of weakness and fatigue prompted her to come into the hospital. Pt feeling better today. She "doesn't feel like she could climb a hill" but is feeling better than last night. Pt is able to walk around her room to her bedside commode with her walker (which she uses at home). Pt's also tells me that she [place] [facility] [place] that high calcium can be caused by her cancer med Ibrance. Her also says that the patient is to start a bisphosphonate soon but she needs dental clearance first. Pt denies SOB, chest pain, leg pain. 05/21/2022: Pt feeling well today. Overnight she explains that her heart had an episode that was "due to her heart failure" and not receiving diuretics. Originally it was thought that she went into Afib but it was determined that her telemetry showed 2nd degree (mobitz I) heart block. Pt denies SOB, lightheadedness, chest pain, leg pain, dizziness. Cardio and nephro consulted today. 05/22/2022: Pt doing well, without complaints. Pt eating and drinking well. Denies SOB, lightheadedness, chest pain, leg pain, or bleeding. 05/23/2022: Pt feeling well today. She does explain that she had some MARSHALL last night while walking in her room. She is also orthopneic but this seems to be baseline for her. This morning she is breathing comfortably at rest and while talking with me. We discussed her lab results and recent CT findings. Her right sciatica has been acting up and keeping her from sleeping at night. Due to this, she is unable to elevate her feet at night which allows more fluid to build up in her legs. Physical Exam Constitutional: NAD. BP elevated, other vitals WNL. Eyes: no conjunctival abnormality Respiratory: Minimal crackles appreciated in bilateral lung bases. No rhonchi or wheezing. Non labored breathing at rest. Cardiovascular: RRR. No murmur noted. 2+ pitting edema of bilateral LE, L>R Gastrointestinal (Abdomen): Nontender, +BS. No masses noted. Skin: Brawny induration of bilateral LE from ankle to mid calf Psychiatric: Alert. Mood and affect congruent. Results & Data Results & Data ([facility]) Vital Signs (Past 12 Hours) Vital Signs Temp Pulse Resp BP Pulse Ox O2 Del Method 05/23/22 14:50 36.9 C 56 L 19 147/75 H 95 Room Air 05/23/22 12:10 36.4 C L 71 19 148/55 H 96 Room Air 05/23/22 08:00 Room Air 05/23/22 08:01 36.9 C 62 19 143/56 H 96 Room Air 05/23/22 04:15 36.7 C 63 18 185/73 H 95 Resident Activity Tracking Resident Involvement: Resident Care Provided Care Provided: Adult Hospital Medicine (1) Breast cancer Breast location: unspecified site of breast Estrogen receptor status: unspecified Laterality: left Patient sex: female Qualified Code(s): C50.912 - Malignant neoplasm of unspecified site of left female breast
[2022-05-24] MEDS: HEPARIN SOD 5,000 UNIT/0.5 ML VIAL SQ SCH ×2 (04:01→13:12)
[2022-05-24 06:06] LABS: Hematocrit (blood only) 22.7 % (34.1-44.9); Hemoglobin 7.6 g/dl (12.0-16.0); Mean Corpuscular Hemoglobin 35.2 pg (25.0-34.0); Mean Corpuscular Hgb Conc 33.5 g/dL (32.0-36.0); Mean Corpuscular Volume 105.1 fL (80.0-100.0); Platelet Count 170 K/uL (130-400); RDW Coefficient of Variation 17.1 % (11.5-14.5); RDW Standard Deviation 65.3 fL (36.4-46.3); Red Blood Count 2.16 M/uL (3.93-5.22)
[2022-05-24 06:38] LABS: Calcium 10.9 mg/dl (8.5-10.1); Creatinine Clr Calc Pharmacy 15.2 ml/min; Est GFR (African American) 12.5 ml/min; Est GFR (Non-African American) 10.8 ml/min; Potassium 4.1 mmol/L (3.5-5.1)
[2022-05-24 06:40] LABS: Basophils # (auto) 0.04 K/uL (0-0.2); Basophils % (auto) 1.2 %; Eosinophils # (auto) 0.05 K/uL (0-0.50); Eosinophils % (auto) 1.5 %; Immature Granulocytes # (auto) 0.01 K/uL (0.00-0.02); Immature Granulocytes % (auto) 0.3 %; Lymphocytes # (auto) 0.94 K/uL (1.2-3.4); Lymphocytes % (auto) 27.6 %; Monocytes # (auto) 0.23 K/uL (0.24-0.82); Monocytes % (auto) 6.8 %; Neutrophils # (auto) 2.13 K/uL (1.4-6.5); Neutrophils % (auto) 62.6 %; RBC Morphology Unremarkable
--- NOTE | 2022-05-24 07:11 | Hospitalist Progress Note ---
Date of Service May 24, 2022 Assessment & Plan (1) Hypercalcemia: Plan: Pt is 72 yo female with PMH of stage 5 CKD, CHF, MCKENZIE, GERD, HTN, DM, and dyslipidemia presenting for hypercalcemia on outpatient labs associated with weakness, fatigue, and loss of appetite. Hypercalcemia - Ca 12.3 corrected to 12.5 upon admission. 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 - pt's was told by doc at [facility] [place] that [place]brance could cause Ca problems - at this point, most likely caused by JEFFREY with osteoblastic lesions of spine contributing - Received aggressive hydration for first 24 hours - IV lasix dose (05/20, 05/21) and held home spironolactone for concern of fluid overload - IV lasix held (05/22) - 40 mg IV lasix given (05/23) - No fluids since 05/20, continue holding - Ca downtrending at 10.9 this AM - consider Denosumab for outpatient therapy- case management consulted JEFFREY in setting of stage 3 CKD - Baseline Cr in 2017= 2.0 - Unclear what caused progression from 2019 to February 2022 but appears stable since then - Cr 3.88 today, eGFR 10.8 - renal US- normal - renal consulted Acute exacerbation of HFpEF - clinically wet today with crackles in lung bases and increased LE edema - CXR- cardiomegaly with congestive failure and pulmonary edema, small pleural effusions - Fluids and lasix as above - monitor Is and Os - Holding home furosemide 40 mg in AM, 20 mg in PM; holding spironolactone 12.5 mg daily - Trend BMPs Second degree heart block (Mobitz 1) - Noted 05/20. Not on any neg inotrope. - cardio recommends active surveillance with periodic holter outpatient Hyponatremia - mildly low. follow - Stable at 132 MCKENZIE - Monitor for fluid overload HTN - Most recent 147/75 DM - HbA1C 7.3 in February. No need to repeat. - controlled at home with insulin glargine and aspart - Pharmacy recommends: - basal= lantus 25 units BID, 20 units if BG <120 - bolus= novolog per scale ACHS or q6hr while NPO - goal range= 110-140 mg/dL - correction factor= 20 mg/dL/unit - nutritional/prandial insulin per carb ratio of 1 unit per 7 grams CHO Breast cancer in current tx - pt on Ibrance and anastrozole, following with Leandro[facility] - Pt has completed 1 month (3 weeks of med, 1 week free) of Ibrance without issue - She is entering her med free week Morbid obesity with BMI 45.7 - to consider outpatient weight management referral GERD - no home tx noted (2) CKD (chronic kidney disease) stage 5, GFR less than 15 ml/min: (3) MCKENZIE (nonalcoholic steatohepatitis): (4) GERD (gastroesophageal reflux disease): (5) HTN (hypertension): (6) Type 2 diabetes mellitus: (7) Breast cancer: (8) Mobitz type 1 second degree AV block: Plan FEN: DM diet, no maintenance fluids Consults: case management for prolia DVT Prophylaxis: heparin 7500 units q8h (pt refuses) Disposition: med/tele Admission and Anticipated Discharge Date Admission Date: May 19, 2022 Subjective Pt is 72 yo female with PMH of stage 5 CKD, CHF, MCKENZIE, GERD, HTN, DM, and dyslipidemia presenting for hypercalcemia on outpatient labs associated with weakness, fatigue, and loss of appetite. 05/20/2022: On Tuesday she was told of her lab results by her PCP. Her and her went to the fair on Tuesday and her noticed a decrease in her appetite. Same lack of appetite on Tuesday. The addition of weakness and fatigue prompted her to come into the hospital. Pt feeling better today. She "doesn't feel like she could climb a hill" but is feeling better than last night. Pt is able to walk around her room to her bedside commode with her walker (which she uses at home). Pt's also tells me that she recalls a doctor at [facility] [place] telling her that high calcium can be caused by her cancer med Ibrance. Her also says that the patient is to start a bisphosphonate soon but she needs dental clearance first. Pt denies SOB, chest pain, leg pain. 05/21/2022: Pt feeling well today. Overnight she explains that her heart had an episode that was "due to her heart failure" and not receiving diuretics. Originally it was thought that she went into Afib but it was determined that her telemetry showed 2nd degree (mobitz I) heart block. Pt denies SOB, lightheadedness, chest pain, leg pain, dizziness. Cardio and nephro consulted today. 05/22/2022: Pt doing well, without complaints. Pt eating and drinking well. Denies SOB, lightheadedness, chest pain, leg pain, or bleeding. 05/23/2022: Pt feeling well today. She does explain that she had some MARSHALL last night while walking in her room. She is also orthopneic but this seems to be baseline for her. This morning she is breathing comfortably at rest and while talking with me. We discussed her lab results and recent CT findings. Her right sciatica has been acting up and keeping her from sleeping at night. Due to this, she is unable to elevate her feet at night which allows more fluid to build up in her legs. 05/24/2022: Results & Data Results & Data ([facility]) Vital Signs (Past 12 Hours) Vital Signs Temp Pulse Pulse Resp BP Pulse Ox O2 Del Method 05/24/22 04:46 36.7 C 64 18 161/72 H 94 Room Air 05/23/22 22:40 48 L 05/23/22 20:30 Room Air 05/23/22 22:58 36.7 C 70 20 160/54 H 98 Room Air 05/23/22 20:49 36.6 C 58 L 20 181/52 H 92 Room Air Resident Activity Tracking Resident Involvement: Resident Care Provided Care Provided: Adult Hospital Medicine (1) Breast cancer Breast location: unspecified site of breast Estrogen receptor status: unspecified Laterality: left Patient sex: female Qualified Code(s): C50.912 - Malignant neoplasm of unspecified site of left female breast
--- NOTE | 2022-05-24 08:02 | Medical Student Progress Note ---
Date of Service May 24, 2022 Assessment & Plan (1) Acute kidney injury: Plan: JEFFREY in setting of Stage III CKD - Cr 3.88 and BUN 66 today - Baseline Cr has increased from 1.6 to 3.3 from 2019 to February 2022, unsure of specific cause of increase - Unclear if elevated Cr is cause of JEFFREY or gradually progressive CKD - renal US was normal - UA 05/20 and today showed protein and WBC's, so AIN not excluded from differential, per nephrology - furosemide restarted yesterday (05/23) 40 mg to encourage negative fluid balance, per nephrology - patient takes furosemide 60 mg at home - also receiving inpatient meds of aspirin, insulin aspart, insulin glargine, venlafaxine HCl, allopurinol, acetaminophen prn, allopurinol - Holding spironolactone - Serologic evaluation for sarcoid and monoclonal process are pending regarding etiology of JEFFREY Hypercalcemia - Ca 12.3 corrected to 12.5 upon admission. 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 Osteoblastic lesions likely contributing to hypercalcemia. - considered bisphosphonates, but decided against given possible nephrotoxicity - plan for outpatient administration of denosumab, as this cannot be given inpatient. She would need to receive this medication via [facility] cancer center, which she is not set up with because she receives cancer treatment at [facility]. Hence, we will set up for outpatient denosumab with [place]. Acute Exacerbation of HFpEF - Clinically exhibited crackles in bilateral lower lung solis 05/22 and 05/23 - Chest XR showed cardiomegaly, pleural effusion, pulmonary edema - was holding home furosemide 40 mg in AM, 20 mg in PM; holding spironolactone 12.5 mg daily for concern of JEFFREY exacerbation - Restarted IV furosemide yesterday - will be discharged home on normal furosemide dosage Breast Cancer - Taking Ibrance and Anastrozole, seen by [facility] for treatment - therapies held in setting of JEFFREY - will follow up with [facility] providers for administration of denosumab, as noted above. 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 - This morning, WBC 3.40, RBC 2.16, Hgb 7.6, Hct 22.7, MCV 105.1, RDW 65.3 - Hgb was trending around 8-9 and did drop to 7.6 today, so Nephrology ordered venofer 200 mg IV and Epogen 89835 units SQ provided today. Second degree heart block (Mobitz 1) - Noted 05/20. Not on any neg inotrope. - cardiology recommended outpatient alfonso monitor Hyponatremia - mildly low, but stable around 132 HTN - Most recent 155/74 DM - HbA1C 7.3 in February. No need to repeat. - controlled at home with insulin glargine and aspart (2) Chronic kidney disease, stage III (moderate): (3) Hypercalcemia: (4) Breast cancer: Breast location: unspecified site of breast Estrogen receptor status: unspecified Laterality: left Patient sex: female Qualified Code(s): C50.912 - Malignant neoplasm of unspecified site of left female breast (5) HTN (hypertension): (6) (HFpEF) heart failure with preserved ejection fraction: (7) Type 2 diabetes mellitus: (8) Mobitz type 1 second degree AV block: Plan Disposition - Plan to discharge patient. Can return to taking furosemide at home with plan for serial outpatient labs to monitor Cr and Ca on BMP. Will also monitor Hgb/Hct on CBC. First labs should be taken in 2-3 days, then serially every 2-3 days (about twice per week). Plan to set up denosumab treatment with [facility] Leandro, who manages her breast cancer treatment. Also advised patient to monitor for symptoms of orthopnea or dyspnea and return to the emergency department if these are significantly exacerbated, suggesting worsening heart failure. Admission and Anticipated Discharge Date Admission Date: May 19, 2022 Anticipated date of discharge: 05/24/22 Anjel Beyer is a 72 year old female who presented to the [facility] ED on 05/19 for hypercalcemia on outpatient labs. She was experiencing symptoms of fatigue, lack of appetite, and weakness. Prior to my evaluation of patient: 05/19/22: Patient presented to emergency department when she was told of her lab results by PCP. Per ED note and prior hospitalist notes, she and her went to the fair on Tuesday and her noticed a decrease in her appetite. Same lack of appetite on Tuesday. The addition of weakness and fatigue prompted her to come into the hospital. 05/24: I evaluated the patient, who was resting comfortably in the recliner this morning. Patient has been managed by the inpatient hospitalist team for the last couple of days. Reports she is continuing to feel better, as her fatigue and loss of appetite are improving. She has been experiencing right-sided sciatica for the last couple months, which is acutely flared, so she had been unable to prop her legs up the last couple days as this exacerbates her pain. She began using a brace for this pain last night, which has alleviated her pain so she was able to sleep with her legs propped in the recliner. Reports doing so in addition to a dose of furosemide yesterday helped mitigate her leg swelling. She was experiencing mild dyspnea and orthopnea, but both of these have also improved over the last day. She has a dry cough at baseline. She has been urinating well and reports no associated issues. Denies chest pain, lightheadedness, or dizziness. Physical Exam Constitutional: Resting comfortably in recliner. Not in acute distress. BP elevated, other vitals WNL. Eyes: Conjunctivae normal with no drainage or abnormality. Sclerae anicteric. ENMT: Oral mucosa pink and moist. Trachea midline. Neck: Normal on visual inspection. Respiratory: Normal respiratory effort. Lungs clear to auscultation bilaterally. Cardiovascular: Regular rate and rhythm. No murmurs, rubs, or gallops. 1+ pitting edema in left lower extremity. Minimal edema in right lower extremity. Edema greatly improved since yesterday. Gastrointestinal (Abdomen): Nontender. No masses palpated. Bowel sounds present. Skin: Warm & dry. No rashes or lesions. Neurologic: Alert & oriented x 3. Psychiatric: Appropriate mood & affect. Results & Data ([facility]) Vital Signs (Past 12 Hours) Vital Signs Temp Pulse Pulse Resp BP Pulse Ox O2 Del Method 05/24/22 04:46 36.7 C 64 18 161/72 H 94 Room Air 05/23/22 22:40 48 L 05/23/22 20:30 Room Air 05/23/22 22:58 36.7 C 70 20 160/54 H 98 Room Air 05/23/22 20:49 36.6 C 58 L 20 181/52 H 92 Room Air Laboratory Results My Interpreted Results: CBC: WBC 3.40, RBC 2.16, Hgb 7.6, Hct 22.7, MCV 105.1, RDW 65.3 BMP: Sodium 132, BUN 66, Cr 3.88, Glucose 111, Ca 10.9 UA: 1+ urine protein, positive urine nitrite, 3+ leukocyte esterase, positive WBC, 3+ bacteria (but asymptomatic)
[2022-05-24] MEDS: allopurinoL 100 MG TAB PO SCH (08:12)
[2022-05-24] MEDS: ASPIRIN 81 MG ECTAB PO SCH (08:12)
[2022-05-24] MEDS: VENLAFAXINE HCL XR 75 MG CAPXR PO SCH (08:13)
[2022-05-24] MEDS: PSYLLIUM or GUAR GUM FIBER POWDER PACKET PO SCH (08:17)
[2022-05-24] MEDS: INSULIN ASPART PER UNIT SC SCH ×3 (09:05→17:58)
[2022-05-24] MEDS: LANTUS PER UNIT CHARGE SQ SCH (09:06)
[2022-05-24 09:18] LABS: Ferritin 262.5 ng/ml (8-388)
--- NOTE | 2022-05-24 09:43 | Cardiology Progress Note ---
Date of Service May 24, 2022 Assessment & Plan (1) Mobitz type 1 second degree AV block: Plan 1. AV block: She has Mobitz 1 (Wenckebach) AV block, it is asymptomatic and her heart rate is in the 30s when she is in 2-1 AV block. That occurs at night, and although this arrhythmia may progress in the future at this point we should continue to follow. She remains asymptomatic. Over the long run we should get periodic Holter monitors but I would not consider pacemaker at this time. Admission and Anticipated Discharge Date Admission Date: May 19, 2022 Subjective She is feeling well today, she still has no lightheadedness or dizziness and no awareness of her cardiac rhythm. Physical Exam Physical Exam: Constitutional: Alert, cooperative and in no distress. She is obese. HEENT: Unremarkable Neck: No jugular venous distention, carotid pulses are normal and equal bilaterally without bruits. Pulmonary: Clear to auscultation bilaterally. Cardiac: Regular rhythm with some irregularity, no murmur, gallop or rub. Abdomen: Soft, nontender with normal bowel sounds. Extremities: No edema. Distal pulses intact. Neurologic: No focal findings. Gait was not tested. Skin: No rash, ecchymoses or petechiae. Results & Data ([facility]) Vital Signs (Past 12 Hours) Vital Signs Temp Pulse Pulse Resp BP Pulse Ox O2 Del Method 05/24/22 08:00 Room Air 05/24/22 07:58 36.8 C 59 L 19 144/50 H 94 Room Air 05/24/22 04:46 36.7 C 64 18 161/72 H 94 Room Air 05/23/22 22:40 48 L 05/23/22 22:58 36.7 C 70 20 160/54 H 98 Room Air Laboratory Results CBC 05/24/22 Range/Units 05:44 WBC 3.40 L (4.8-10.8) K/ul RBC 2.16 L (3.93-5.22) M/uL Hgb 7.6 L (12.0-16.0) g/dl Hct 22.7 L (34.1-44.9) % Plt Count 170 (130-400) K/uL Neut # (Auto) 2.13 (1.4-6.5) K/uL Lymph # (Auto) 0.94 L (1.2-3.4) K/uL Crisp # (Auto) 0.23 L (0.24-0.82) K/uL Eos # (Auto) 0.05 (0-0.50) K/uL Baso # (Auto) 0.04 (0-0.2) K/uL Comprehensive Metabolic Panel 05/24/22 Range/Units 05:44 Sodium 132 L (136-145) mmol/L Potassium 4.1 (3.5-5.1) mmol/L Chloride 99 (98-107) mmol/L Carbon Dioxide 24 (21-32) mmol/L BUN 66 H (6-23) mg/dl Creatinine 3.88 H (0.6-1.2) mg/dl Glucose 111 H (70-99(Fasting)) mg/dl Calcium 10.9 H (8.5-10.1) mg/dl Intake and Output 05/23/22 05/24/22 05/24/22 22:59 06:59 14:59 Intake Total 120 / 915 120 / 915 Output Total 300 / 1725 700 / 1725 Balance -180 / -810 -580 / -810 Intake: Oral 120 / 915 120 / 915 Output: Urine 300 / 1725 700 / 1725 Other: # Unmeasured Voids 300 Weight 114.1 kg Weight Measurement Method Built in [facility] Diagnostic Findings Telemetry: Sinus rhythm with Mobitz 1 AV block, heart rate in the 30s overnight with 2-1 AV block. Little change since admission. PG Care Time/CCT Total # of Minutes Spent Total Time Spent with Patient: Total time spent is greater than 50% in coordination of care (as documented) at patient's floor/unit and/or counseling patient: Coding Level of Care Code 94864 Subseq Hosp Care Lvl 2 Diagnoses Mobitz type 1 second degree AV block I44.1
[2022-05-24] MEDS ORDERED: EPOETIN ALFA 10,000 UNITS/ML VIAL SQ ONE (10:28)
--- NOTE | 2022-05-24 10:33 | Nephrology Progress Note ---
Date of Service May 24, 2022 Assessment & Plan (1) Acute kidney injury: Plan: * JEFFREY, in the setting of hypercalcemia and associated intravascular volume depletion * Creatinine slightly improved * Non-oliguric * Increased total body water * Continue furosemide to encourage a slightly negative fluid balance * Repeat urine microscopy today * Serologic evaluation for sarcoid and monoclonal process are pending * Medications are appropriate for kidney function * Document strict I/O's * Repeat metabolic profile tomorrow AM (2) Chronic kidney disease, stage III (moderate): Plan: * Baseline Cr has been ~3.0 or greater * h/o JEFFREY on CKD 2018 requiring acute inpatient HD * Will require close outpatient follow up (3) Hypercalcemia: Plan: * Non-PTH mediated * PTHrp, SPEP, and KODY level pending * Lumbar CT demonstrates osteoblastic lesions * Bone scan in December demonstrated trace uptake in T10, L1, and L4 * I would consider Denosumab therapy which should be coordinated as an outpatient post discharge * Concerns and plan of care moving forward to be discussed with (4) Breast cancer: Plan: * Ibrance and Anastrozole directed by Oncology at [facility] * Will need to discuss recent history of anemia, JEFFREY, and hypercalcemia with oncologist prior to resuming Ibrance on Tuesday per schedule * Close outpatient follow up with Dr. Calvert will be required * Therapy held in setting of JEFFREY and hypercalcemia Plan for anemia, venofer 200 mg IV and Epogen 81236 units SQ provided today. Repeat H/H tomorrow AM. Admission and Anticipated Discharge Date Admission Date: May 19, 2022 Subjective No acute events overnight. Overall, Pauline feels well today. She denies dyspnea. Edema improved slightly. Appetite fair. Review of Systems Review of Systems: All systems reviewed & are unremarkable except as noted in HPI & below Physical Exam Constitutional: well developed and + morbidly obese; no acute distress Eyes: no scleral abnormality and no corneal abnormality ENMT: Mouth: no oral mucosal abnormality and oral mucous membranes not dry Neck: normal visual inspection and trachea midline Respiratory: normal respiratory effort Auscultation: lungs clear to auscultation bilaterally Cardiovascular: Rate/Rhythm: regular rate Heart Sounds: normal S1 and normal S2 Extremities: + edema Musculoskeletal: Extremities: no cyanosis and no clubbing Skin: + turgor decreased; no lesions Neurologic: Motor/Sensory: no tremor and no asterixis Psychiatric: Orientation: alert and oriented x 3 Results & Data ([facility]) Vital Signs (Past 12 Hours) Vital Signs Temp Pulse Pulse Resp BP Pulse Ox O2 Del Method 05/24/22 08:00 Room Air 05/24/22 07:58 36.8 C 59 L 19 144/50 H 94 Room Air 05/24/22 04:46 36.7 C 64 18 161/72 H 94 Room Air 05/23/22 22:40 48 L 05/23/22 22:58 36.7 C 70 20 160/54 H 98 Room Air Laboratory Results Laboratory Results - last 24 hr 05/23/22 05/23/22 05/23/22 12:12 17:18 20:32 WBC RBC Hgb Hct MCV MCH MCHC RDW Std Deviation RDW Coeff of Amparo Plt Count MPV Immature Gran % (Auto) Neut % (Auto) Lymph % (Auto) Kay % (Auto) Eos % (Auto) Baso % (Auto) Neut # (Auto) Lymph # (Auto) Kay # (Auto) Eos # (Auto) Baso # (Auto) Immature Gran # (Auto) RBC Morphology Sodium Potassium Chloride Carbon Dioxide Anion Gap BUN Creatinine Est Cr Clr Drug Dosing Est GFR ( Amer) Est GFR (Non-Af Amer) BUN/Creatinine Ratio Glucose POC Glucose 168 H 134 H 128 H Calcium Iron TIBC Unsaturated IBC Transferrin % Sat Ferritin 05/24/22 05/24/22 05/24/22 05:44 05:44 05:44 WBC 3.40 L RBC 2.16 L Hgb 7.6 L Hct 22.7 L MCV 105.1 H MCH 35.2 H MCHC 33.5 RDW Std Deviation 65.3 H RDW Coeff of Amparo 17.1 H Plt Count 170 MPV 10.0 Immature Gran % (Auto) 0.3 Neut % (Auto) 62.6 Lymph % (Auto) 27.6 Kay % (Auto) 6.8 Eos % (Auto) 1.5 Baso % (Auto) 1.2 Neut # (Auto) 2.13 Lymph # (Auto) 0.94 L Kay # (Auto) 0.23 L Eos # (Auto) 0.05 Baso # (Auto) 0.04 Immature Gran # (Auto) 0.01 RBC Morphology Unremarkable Sodium 132 L Potassium 4.1 Chloride 99 Carbon Dioxide 24 Anion Gap 9 BUN 66 H Creatinine 3.88 H Est Cr Clr Drug Dosing 15.2 Est GFR ( Amer) 12.5 Est GFR (Non-Af Amer) 10.8 BUN/Creatinine Ratio 17.0 Glucose 111 H POC Glucose Calcium 10.9 H Iron 60 TIBC 262 Unsaturated IBC 202 Transferrin % Sat 23 Ferritin 262.5 05/24/22 07:52 WBC RBC Hgb Hct MCV MCH MCHC RDW Std Deviation RDW Coeff of Amparo Plt Count MPV Immature Gran % (Auto) Neut % (Auto) Lymph % (Auto) Kay % (Auto) Eos % (Auto) Baso % (Auto) Neut # (Auto) Lymph # (Auto) Kay # (Auto) Eos # (Auto) Baso # (Auto) Immature Gran # (Auto) RBC Morphology Sodium Potassium Chloride Carbon Dioxide Anion Gap BUN Creatinine Est Cr Clr Drug Dosing Est GFR ( Amer) Est GFR (Non-Af Amer) BUN/Creatinine Ratio Glucose POC Glucose 130 H Calcium Iron TIBC Unsaturated IBC Transferrin % Sat Ferritin PG Care Time/CCT Total # of Minutes Spent Total Time Spent with Patient: Total time spent is greater than 50% in coordination of care (as documented) at patient's floor/unit and/or counseling patient: Coding Level of Care Code 85113 Subseq Hosp Care Lvl 3 Diagnoses Acute kidney injury N17.9 Chronic kidney disease, stage III (moderate) N18.30 Hypercalcemia E83.52 Breast cancer C50.912 Breast location: unspecified site of breast Estrogen receptor status: unspecified Laterality: left Patient sex: female (1) Breast cancer Breast location: unspecified site of breast Estrogen receptor status: unspecified Laterality: left Patient sex: female Qualified Code(s): C50.912 - Malignant neoplasm of unspecified site of left female breast
[2022-05-24] MEDS ORDERED: IRON SUCROSE 200 MG in 0.9 % SODIUM CHLORIDE 100 ML IV ONE (11:00)
[2022-05-24 15:28] LABS: Appearance Urine Cloudy (Clear); Bacteria Urine Automated 3+ (Negative); Bilirubin Urine Negative (Negative); Blood Urine Trace (Negative); Color Urine Yellow; Glucose Urine UA Negative (Negative); Ketones Urine Negative (Negative); Leukocyte Esterase Urine 3+ (Negative); Nitrite Urine Positive (Negative); Protein Urine 1+ (Negative); RBC Urine Automated 0-4 /hpf (0-4); Urobilinogen Urine Negative (Negative); WBC Urine Automated >30 /hpf (0-5); pH Urine 6.5 (4.5-7.5)
--- NOTE | 2022-05-24 17:41 | Discharge Summary ---
Date of Service May 24, 2022 Admission HPI Per Admitting Provider Pauline Beyer is a 72 year old female with breast cancer who presents to the ER with hypercalcemia on outpatient labs and associated fatigue, confusion and weakness. In the ER she is also mildly bradycardic and hypertensive. She denies any polyuria, polydipsia, kidney stones, bone pain. She denies any calcium supplementation. Regarding her breast cancer, she is treated at [facility] and I do not have the details on admission regarding this other than she is only being treated with Ibrance and Anastrazole which she reports has shrunk the tumor considerably. She reports no surgery is planned. She has had a considerable of her renal function over the last 2 years with creatinine 1.64 -> 3.35 in February. It has been relatively stable since February. She has not seen a director of technology for multiple years but has an appointment set up next month. Her PCP has been weaning her off the diuretics to see if this helps. She reports no increase in leg swelling or shortness of breath with weaning off the diuretics. Review of previous notes show she required hemodialysis during hospitalization in 2018 although no nephrology notes are present in current version of [facility]. In the ER her calcium level was repeated and appears to be stable from 2 days previously when it was 12.4. However her calcium has been elevated for some time and even in February it was 12.0, however most recently in March it was down to 10.6. She was given NSS 500ml bolus and referred to medicine for admission and ongoing management of hypercalcemia. The patient requested I called [facility] however the office was closed at the time of calling. She is currently refusing further workup and blood tests at this time telling me she will get these at [facility]. Admission Exam Per Admitting Provider Constitutional: well developed and + morbidly obese; + not well nourished and no acute distress Eyes: + anicteric sclerae; normal pupil size ENMT: external ear and nose normal, oropharynx normal Mouth: oral mucous membranes not dry Neck: trachea midline, no thyromegaly Respiratory: normal respiratory effort, lungs clear to auscultation Cardiovascular: Rate/Rhythm: regular rate and regular rhythm Heart Sounds: no murmur Extremities: normal capillary refill and + pedal edema (trace pitting ankles b/l equal); no calf tenderness Gastrointestinal (Abdomen): normal bowel sounds, soft, nontender, no hepatosplenomegaly Musculoskeletal: no cyanosis or clubbing, extremities motor strength 5/5 Skin: no rashes, warm and dry Neurologic: moves all extremities and awake; no focal motor deficits and not confused Psychiatric: A+Ox3, euthymic affect Principal Diagnosis hypercalcemia Discharge Exam Constitutional NAD. BPs running high (latest at 155/74), otherwise vitals WNL. Respiratory CTA bilaterally. No wheezing, rhonchi, or crackles today. Non labored breathing. Cardiovascular RRR. No murmur noted. Bilateral LE edema, nonpitting in right leg, 1+ pitting in left leg to about mid calf. Skin Brawny induration of bilateral LE from ankle to mid calf Discharge Data Allergies Allergy/AdvReac Type Severity Reaction Status Date / Time amoxicillin Allergy Severe LIPS Verified 05/19/22 17:29 SWELLED, "RED ALL OVER" doxycycline Allergy Severe LIPS Verified 05/19/22 17:29 SWELLED, "RED ALL OVER". cephalexin [From Keflex] Allergy skin Verified 05/19/22 17:29 starts to peel off sulfamethoxazole Allergy Unknown Verified 05/19/22 17:29 [From Bactrim] trimethoprim [From Bactrim] Allergy Unknown Verified 05/19/22 17:29 atorvastatin AdvReac Myalgia Verified 05/19/22 17:29 Consultations 05/19/22 17:22 ED Decision to Admit Stat 05/21/22 07:00 Consult Cardiology Routine 05/21/22 08:32 Consult Nephrology Routine Ordered Studies 05/19/22 15:04 CT head/brain wo con Stat 05/21/22 10:04 US renal/blad retro comp Routine 05/22/22 12:46 CT lumbar spine wo con Routine Head CT 05/19/22 15:04 CT SCAN OF THE BRAIN WITHOUT IV CONTRAST CLINICAL HISTORY: Dizziness. COMPARISON STUDY: No priors. TECHNIQUE: Unenhanced axial CT scan of the brain is performed from the vertex to the skull base. A dose lowering technique was utilized adhering to the principles of ALARA. CT DOSE: 687.98 mGy.cm FINDINGS: Brain parenchyma: There is age-related involutional change noting mild subcortical and periventricular microangiopathic disease. There is no hemorrhage, mass effect, or evidence of acute territorial ischemia by CT criteria. Sheffield-white matter differentiation is preserved. No extra-axial fluid collection is seen. Ventricles, sulci, cisterns: Prominent secondary to involutional change. Intracranial vasculature: There is atherosclerotic calcification of the cavernous carotid and vertebral arteries. Calvarium: Unremarkable. Sinuses and mastoids: The paranasal sinuses are clear. The mastoid air cells are well pneumatized. Orbits: The bony orbits are grossly intact. There are bilateral ocular lens implants. IMPRESSION: There is no hemorrhage, mass effect, or evidence of acute territorial ischemia by CT criteria. ACT 112: Negative or not required by law. Electronically signed by: Sukh Hilario M.D. 05/19/2022 3:53 PM Renal Ultrasound 05/21/22 10:04 ULTRASOUND KIDNEYS AND BLADDER CLINICAL HISTORY: Acute on chronic renal insufficiency. COMPARISON STUDY: Abdominal CT dated 01/31/2018. TECHNIQUE: Real-time, grayscale, and color flow sonography of the kidneys and bladder is performed. Images are reviewed in the transverse and longitudinal planes. FINDINGS: Kidneys: The kidneys are normal in size and echotexture. The right kidney measures 10.7 cm in length and the left kidney measures 11.9 cm in length. There is no hydronephrosis. No shadowing renal calculi are identified. There is no sonographic evidence of contour deforming renal mass lesion. No perinephric fluid is identified. Bladder: The bladder is decompressed and grossly unremarkable. Ureteral jets were not seen. Upper abdomen: The liver appears enlarged and steatotic. Nodularity of the hepatic surface contour suggests morphologic changes of cirrhosis. IMPRESSION: 1. The kidneys are normal in size and without hydronephrosis. 2. The bladder was decompressed and grossly unremarkable. ACT 112: Negative or not required by law. Electronically signed by: Sukh Hilario M.D. 05/21/2022 11:46 AM Chest X-Ray 05/21/22 10:28 TWO VIEW CHEST CLINICAL HISTORY: Congestive heart failure.. FINDINGS: AP and lateral chest radiographs are compared to study dated 02/02/2018. The heart is enlarged noting atherosclerotic calcification of the thoracic aorta. There is pulmonary vascular congestion with evidence of interstitial edema. There are small pleural effusions with dependent consolidation. There is no pneumothorax. The skeletal structures are osteopenic. Postoperative change is noted in the right humerus. Degenerative change and hyperkyphosis is seen in the thoracic spine. IMPRESSION: 1. Cardiomegaly with evidence of congestive failure and pulmonary edema. 2. Small pleural effusions with dependent consolidation. ACT 112: Negative or not required by law. Electronically signed by: Sukh Hilario M.D. 05/21/2022 12:[address] 05/22/22 12:46 CT SCAN OF THE LUMBAR SPINE WITHOUT IV CONTRAST CLINICAL HISTORY: Low back pain. Hypercalcemia. Breast cancer. COMPARISON STUDY: Abdominal CT dated 01/31/2018. TECHNIQUE: CT scan of the lumbar spine is performed from the lower thoracic spine to sacrum. Images are reviewed in the axial, sagittal, and coronal planes. IV contrast was not administered for this examination. A dose lowering technique was utilized adhering to the principles of ALARA. The examination is degraded by large body habitus, and by streak artifact from the body wall abutting the CT gantry. CT DOSE: 973.99 mGy.cm FINDINGS: The skeletal structures are osteopenic. There is no evidence of acute fracture or malalignment involving the lumbar spine. Vertebral body height and alignment are maintained throughout the lumbar spine. Anterior and lateral marginal osteophytes are seen throughout. The transverse and spinous processes appear intact. Osteoblastic lesions are noted in the bodies of L1 and L4. Facet arthropathy is noted in the lower lumbar region. There is advanced disc space narrowing at L3-L4, L4-L5, and L5-S1 with associated endplate sclerosis. Mild disc space narrowing is seen at the remaining lumbar levels. Small posterior disc osteophyte complexes are noted in the lumbar levels. There is no CT evidence of high-grade central canal stenosis. There is no spondylolysis. There is fatty atrophy of the paraspinous musculature. Pleural effusions are partially imaged. There is moderate atherosclerotic calcification of the abdominal aorta which is normal in caliber. Mildly enlarged retroperitoneal lymph nodes measure up to 12 mm in short axis. IMPRESSION: 1. No acute bony abnormality is seen involving the lumbar spine. 2. 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 These are new from the 01/31/2018 examination. 3. Osteopenia and spondylotic change as above. 4. Pleural effusions are partially imaged. ACT 112: Negative or not required by law. Dictated: 05/22/2022 3:04 PM Transcribed: 05/22/2022 4:53 PM Samreen [id number] Electronically signed by: Sukh Hilario M.D. 05/22/2022 6:05 PM Hospital Course (1) Hypercalcemia: Pt is 72 yo female with PMH of stage 5 CKD, CHF, MCKENZIE, GERD, HTN, DM, and dyslipidemia presenting for hypercalcemia on outpatient labs associated with weakness, fatigue, and loss of appetite. Hypercalcemia - Ca 12.3 corrected to 12.5 upon admission. Symptomatic with muscle weakness, fatigue, and mild confusion - PTH 11.6 (low), Mg 2.4, PO 2.4, TSH 1.71 - Prior 25-hydroxy vit D WNL in February, 25-hydroxy vit D low (05/21) - PTHrp, 25 and 1,25-vitamin D, SPEP, pending at d/c - CT lumbar spine showed osteoblastic lesions at L1 and L4 - pt's was told by doc at [facility] that Ibrance could cause Ca problems - at this point, most likely caused by JEFFREY with osteoblastic lesions of spine contributing - Received aggressive hydration for first 24 hours - IV lasix dose (05/20, 05/21) and held home spironolactone for concern of fluid overload - IV lasix held (05/22) - 40 mg IV lasix given (05/23) - Fluids d/c 05/20 - Ca downtrending at 10.9 this AM - consider Denosumab for outpatient therapy- unable to receive here without establishing care here - will contact oncologist at [facility] to set this up JEFFREY in setting of stage 3 CKD, possible pro - Baseline Cr in 2018= 2.0 - Unclear what caused progression from 2019 to February 2022 but appears stable since then - Cr 3.88 today, eGFR 10.8 - renal US- normal - f/u with nephrology Acute exacerbation of HFpEF - clinically improved on day of d/c with less LE edema - CXR- cardiomegaly with congestive failure and pulmonary edema, small pleural effusions - Fluids and lasix as above - Resume home furosemide 40 mg in AM, 20 mg in PM; resume spironolactone 12.5 mg daily upon d/c Second degree heart block (Mobitz 1) - Noted 05/20. Not on any neg inotrope - cardio recommends active surveillance with periodic holter outpatient Hyponatremia - mildly low. follow - Stable at 132 MCKENZIE - Monitored for fluid overload HTN - Most recent 155/74 DM - HbA1C 7.3 in February. No need to repeat. - controlled at home with insulin glargine and aspart - Pharmacy recommends: - basal= lantus 25 units BID, 20 units if BG <120 - bolus= novolog per scale ACHS or q6hr while NPO - goal range= 110-140 mg/dL - correction factor= 20 mg/dL/unit - nutritional/prandial insulin per carb ratio of 1 unit per 7 grams CHO - resume home regimen upon d/c Breast cancer in current tx - pt on Ibrance and anastrozole, following with [facility] - Pt has completed 1 month (3 weeks of med, 1 week free) of Ibrance without issue - She is entering her med free week - will f/u with oncology Morbid obesity with BMI 45.7 - to consider outpatient weight management referral GERD - no home tx noted (2) CKD (chronic kidney disease) stage 5, GFR less than 15 ml/min: (3) MCKENZIE (nonalcoholic steatohepatitis): (4) GERD (gastroesophageal reflux disease): (5) HTN (hypertension): (6) Type 2 diabetes mellitus: (7) Breast cancer: (8) Mobitz type 1 second degree AV block: Total Time Total Time Spent Total Time Spent (In Minutes): <30 Discharge Plan Discharge Items Patient Disposition: Home - Self-Care Reason For Visit: HYPERCALCEMIA Discharge Diagnosis: Hypercalcemia JEFFREY on CKD Activity: Per Instructions section Non-emergency contact: Primary Care Provider, [employer] and Oncologist Call non-emergency contact if: you have any medication questions and your symptoms worsen Follow-up/Referrals: Jeromy Dominguez MD [Physician] - (please schedule f/u in 1 month) Pat Aleajndre MD [Primary Care Provider] - (please schedule f/u in 2-3 days) Diet: Carb Consistent or DM2 Addtl Attending Provider Instructions: You were admitted to [facility] from 05/19 - 05/24 for high calcium levels which likely lead to a kidney injury. The high calcium is most likely due to your breast cancer, which unfortunately is showing signs of metastasis to your spine. Your calcium level normalized and your kidney function improved with IV fluids, but you had some fluid retention with the IV fluids and required some diuretics. For your anemia, you were given an iron infusion and an infusion called Epogen which helps to promote red blood cell growth. Our kidney doctor was consulted and recommended that you start a medication called Prolia (Denosumab) which is given every 6 months via infusion. It will be easiest to have your Oncologist at [facility]. Lastly our heart doctor was consulted for an abnormal heart rate called Penny 1 AV heart block, and they recommended that you follow up with your PCP to get a heart monitoring test called a Holter monitor done. You will be discharged on 05/24 in improved condition. 1. Please follow up with your PCP later this week - your PCP will have you get repeat blood tests to follow up on your calcium, kidney function, sodium, and blood counts. 2. Please follow up with your Oncologist regarding setting up Prolia injections. 3. Follow up with one of our Nephrologists in 1 month to discuss further steps for your kidney disease. 4. Follow up with your PCP to discuss Holter monitor for your heart block. 5. Please continue to take all of your regular home medications as scheduled. It was a pleasure to help provide your care while you were hospitalized. We hope you continue to feel better. Pending Studies at Discharge: Yes Studies:: PTH-rp, KODY, SPEP Stand-Alone Forms: [facility], Smoking Cessation Medications and DC Order Prescriptions: Continued (DME) pen needle, diabetic [BD Ultra-Fine Sheila Pen Needle] 32 gauge x 5/32" needle See Rx Instructions .ROUTE .MEDSUPPLY Qty: 600 5RF Rx Instructions: use 10 times daily Novolog Flexpen U-100 Insulin 100 unit/mL (3 mL) insulin pen See Rx Instructions SQ .COMPLEX Qty: 135 5RF Dose Instruction: inject SQ up to 225 units daily per sliding scale ; Rx Instructions: inject SQ up to 225 units daily per sliding scale ; omega-3 fatty acids 1,000 mg capsule 2,000 mg PO BID Qty: 360 3RF allopurinol 100 mg tablet 50 mg PO DAILY Qty: 45 3RF spironolactone 25 mg tablet 12.5 mg PO DAILY Qty: 45 3RF fenofibrate nanocrystallized 145 mg tablet 145 mg PO DAILY Qty: 90 3RF Hold Instructions: Home Medication placed on hold at Doctor's office cyclobenzaprine 5 mg tablet 5 mg PO TID PRN (Reason: muscle spasm) Qty: 30 0RF venlafaxine 75 mg capsule,extended release 24hr 75 mg PO DAILY Qty: 90 3RF furosemide 40 mg tablet 40 mg PO DAILY Qty: 90 3RF Rx Instructions: Take 1 tablets every morning in addition to 20mg tablet in the evening. Total 60mg daily insulin glargine [Lantus Solostar U-100 Insulin] 100 unit/mL (3 mL) insulin pen 60 unit SQ BID Qty: 108 3RF tramadol 50 mg tablet 50 mg PO Q6H PRN (Reason: pain) Qty: 30 0RF vitamins A,C,N-pypr-dxgdxj 7,160-113-100 sfxj-jp-vdog tablet 1 tab PO DAILY fluconazole [Diflucan] 150 mg tablet 150 mg PO Q72H PRN (Reason: yeast infection) Qty: 2 5RF promethazine 25 mg tablet 25 mg PO Q6H PRN (Reason: nausea) Qty: 30 5RF aspirin [Adult Aspirin Regimen] 81 mg tablet,delayed release (DR/EC) 81 mg PO DAILY tramadol 50 mg tablet 50 mg PO Q6 PRN (Reason: Pain) anastrozole 1 mg tablet 1 mg PO DAILY Ibrance 125 mg tablet 125 mg PO UD furosemide 20 mg tablet 20 mg PO QPM Discharge Orders: Discharge Order (Routine); Ordered 05/24/22 Ordered By: Bhupendra Acuña Admission Data Admit Date/Time: 05/19/22 17:34 Attending Provider: Tio Hameed Admit Provider: Phi Frank Primary Care Provider: Pat Alejandre Other Providers: Phi Frank ; Triston Jones ; Jeromy Dominguez Other Interventions: Discharge Summary Assessment (RN) Last Done: 05/24/22 18:06 Supervising Physician Co-Signing Physician Notes I personally examined the patient and verified all barrett points of history and exam, discussed case, and agree with decision making with Dr Bentley. Feeling okay overall. Would like to go home. Discussed diagnoses, ongoing management, ongoing plans. She expressed good understanding Vitals noted, in general she is awake and alert pleasant no distress. HEENT normocephalic atraumatic mucous membranes moist. Breathing unlabored no accessory muscle use good effort. Skin shows no rashes no pallor or icterus. Hypercalcemianow to more manageable ranges. Was given IV fluids (unfortunately did have some volume overload with thisbut now remedied)for ongoing outpatient management with her PCP and heme/oncgiven her renal insufficiency, more likely something like Prolia than a bisphosphonate. Biweekly labs JEFFREY versus progression of CKDhydratedreally creatinine is on a plateau, concern on whether or not this is a new baseline. Ongoing outpatient PCP and nephrology follow-up. As it relates to her Lasixgiven that she had a degree of diastolic failure herewill have her continue Lasix at home, but follow basic metabolic panel closelyfor creatinine were to continue to rise, then would hold Lasix and really only given symptom triggered fashion, but if her creatinine is stable or shows slow ongoing improvementobviously continue. Biweekly labs for the near future for this as well Acute HFpEFprobably more function of her CKD than her hearteither way improved with diuresis, now stable, on room air, no respiratory symptoms. As above. Outpatient follow-up. Stable for home, otherwise as above Resident Activity Tracking Resident Involvement: Resident Care Provided Care Provided: Adult Hospital Medicine
[2022-05-25 14:11] LABS: Vitamin D 1,25 60 pg/mL (18-72); Vitamin D3,1,25 44 pg/mL
--- NOTE | 2022-05-25 20:20 | Billing Data ---
Date of Service May 24, 2022 Coding Level of Care Code D/C DAY MANAGEMENT <30 MINS
--- NOTE | 2022-05-25 20:21 | Billing Data ---
Date of Service May 25, 2022 Coding Level of Care Code D/C DAY MANAGEMENT <30 MINS
[2022-05-28 16:52] LABS: Albumin 3.5 g/dL (3.8-4.8); Alpha 1 Globulin 0.5 g/dL (0.2-0.3); Alpha 2 Globulin 0.9 g/dL (0.5-0.9); Angiotensin Converting Enzyme 88 U/L (9-67); Beta-1-Globulin 0.5 g/dL (0.4-0.6); Beta-2-Globulin 0.5 g/dL (0.2-0.5); Gamma Globulin 1.1 g/dL (0.8-1.7); Monoclonal Protein Band 1 DNR g/dL (NONE DETECTED); Monoclonal Protein Band 2 DNR g/dL (NONE DETECTED); Monoclonal Protein Band 3 DNR g/dL (NONE DETECTED); PTH Related Protein 13 pg/mL (11-20); Total Protein 6.9 g/dL (6.1-8.1)
[2022-05-28] MEDS ORDERED: PALBOCICLIB PO SCH (23:30)
== END 2022-05-24 18:45 | disposition home or self-care (01) | DRG 640 ==
LOC: ED 13:27 → 4W 17:34 → SUATTDRO 17:34 → 4W 23:08

== ENCOUNTER 2022-11-02 13:21 | Inpatient (IN) ==
[2022-11-02 14:10] LABS: Basophils # (auto) 0.03 K/uL (0-0.2); Basophils % (auto) 0.3 %; Eosinophils # (auto) 0.24 K/uL (0-0.50); Eosinophils % (auto) 2.7 %; Hematocrit (blood only) 25.6 % (37.0-47.0); Hemoglobin 8.2 g/dl (12.0-16.0); Immature Granulocytes # (auto) 0.08 K/uL (0.01-0.20); Immature Granulocytes % (auto) 0.9 %; Lymphocytes # (auto) 1.05 K/uL (1.2-3.4); Lymphocytes % (auto) 11.8 %; Mean Corpuscular Hemoglobin 33.2 pg (25.0-34.0); Mean Corpuscular Volume 103.6 fL (80.0-100.0); Mean Platelet Volume 10.9 fL (9.4-12.4); Monocytes # (auto) 0.53 K/uL (0.11-0.59); Monocytes % (auto) 5.9 %; Neutrophils # (auto) 6.98 K/uL (1.40-6.50); Neutrophils % (auto) 78.4 %; Platelet Count 219 K/uL (130-400); RDW Coefficient of Variation 14.5 % (11.5-14.5); Red Blood Count 2.47 M/uL (4.20-5.40); White Blood Count 8.91 K/ul (4.8-10.8)
[2022-11-02] MEDS ORDERED: SODIUM CHLORIDE 0.9% 1000ML 1,000 ML IV ONE (14:16)
[2022-11-02 14:30] LABS: Alanine Aminotransferase 10 U/L (7-52); Albumin Globulin Ratio 0.7 (0.9-2); Albumin Level 3.5 gm/dl (3.4-5.0); Alkaline Phosphatase 105 U/L (34-104); Anion Gap 10 (3-11); Aspartate Aminotransferase 12 U/L (13-39); BUN Creatinine Ratio 15.3 (10-20); Bilirubin,Total 0.5 mg/dl (0.2-1.0); Blood Urea Nitrogen 65 mg/dl (6-23); Calcium 12.3 mg/dl (8.5-10.1); Carbon Dioxide 21 mmol/L (21-32); Chloride 100 mmol/L (98-107); Est GFR (African American) 11.2 ml/min; Est GFR (Non-African American) 9.7 ml/min; Glucose 211 mg/dl (70-99(Fasting)); Potassium 5.2 mmol/L (3.5-5.1); Sodium 131 mmol/L (136-145); Total Protein 8.5 gm/dl (6.0-8.3)
[2022-11-02 14:41] LABS: Magnesium 2.2 mg/dl (1.7-2.4)
[2022-11-02 15:21] LABS: Reticulocyte % 2.3 % (0.5-2.0); Reticulocytes # 0.06 10^6/uL (0.02-0.10)
[2022-11-02 15:57] LABS: INR 1.1 (0.9-1.1); Prothrombin Time 12.1 Seconds (9.0-12.0)
--- NOTE | 2022-11-02 16:06 | History & Physical Report ---
Date of Service November 02, 2022 Assessment & Plan (1) Acute kidney injury superimposed on CKD: Plan: -Admit to med/tele -The patient is currently afebrile, hemodynamically stable and stable on RA -The patient has a history of stage 4 CKD and follows with Nephrology -Routine labs showed kesha and CKD with a Cr today of 4.24, baseline is typically between 2.50-3.0 -This is likely multifactorial including dehydration and current chemotherapy for breast cancer -Patient also found to have hyperkalemia of 5.2, calcium of 12.3, phos of 5.0, and corrected sodium of 133 -Will give 40 mg IV lasix STAT for her Hyperkalemia, will hold calcium gluconate due to her current hypercalcemia -S/P 1L NSS in the ED -Consulted and spoke with Nephrology, appreciate their help >If not significantly volume overloaded they would like to continue with NSS at 100 mL/hr >They would like her to be started on 40 mg PO prednisone daily with the first dose today for possible granulomatous disease >Will obtain Vit D and PTH levels as requested -Continue to monitor on tele/pulse oximetry -Hold spironolactone but will continue 20 mg PO lasix BID to treat her hyperkalemia, encourage good urine output, and prevent volume overload with IV hydration -Will monitor BMP, MAG,Phos q4h moving forward until her renal function and electrolytes are stable -BL SCDs and Sub-Q heparin for DVT PPX (2) Hyperkalemia: Plan: -See KESHA on CKD (3) Hypercalcemia: Plan: -See KESHA on CKD (4) Hyperphosphatemia: Plan: -See KESHA on CKD (5) Type 2 diabetes mellitus: Plan: -Patient noted to be Hyperglycemic with BSG in the 200's on admission -Her daughter states that the patient's BSG typically runs between 150-200 -Monitor BSG q6h for now until her BSG is better controlled, goal should be 110- 160 -Will start with a conservative treatment plan due to her KESHA >Lantus, 5 units BID, and correction factor of 40 q6h -Patient will likely require a stronger regimen due to starting steroid treatment but want to avoid hypoglycemia with her KESHA on CKD, advance regimen as needed (6) Anemia: Plan: -Hgb is currently stable at 8.2 but MCV is noted to be elevated at 103 -Iron studies, B12, and folate levels are in process, follow-up and replete as needed -Patient does follow with Nephrology and receives Procrit injections (7) (HFpEF) heart failure with preserved ejection fraction: Plan: -Patient currently examines euvolemic -Chest xray obtained on admission does show mild interstitial pulmonary edema and trace BL pleural effusions -Patient is currently stable on RA and without SOB -Will reduce her NSS to 80 mL/hr overnight -Continue to montiro on tele and pulse oximetry -Will continue her PO lasix at 20 mg BID for now to help with her hyperkalemia/hypercalcemia and prevent volume overload (8) Breast cancer: Plan: -Patient is followed in [place] by [facility] -Was taken off Ibrace and start on an estrogen receptor he recently -Montor for Neutropenia while admitted (9) MCKENZIE (nonalcoholic steatohepatitis): Plan: -Stable -Continue lasix but hold spironalactone for now with her Hyperkalemia (10) GERD (gastroesophageal reflux disease): Plan: -Will start pantoprazole, 40 mg PO daily for stress ulcer PPX (11) HTN (hypertension): Plan: -Stable -Continue lasix Plan The patient was discussed with Dr. Chambers at the time of the admission History of Present Illness Chief Complaint: Abnormal outpatient labs Primary Care Provider: Pat Alejandre MD Pauline is a 72 year old female with a PMH significant for Breast cancer with metastases to the bone, followed at [facility] and currently receiving Ibrance , anemia, CKD stage 4, hypercalcemia, DM II, HFpEF, MCKENZIE, GERD, HTN, dyslipidemia, and Mobitz type 1 AV block who presented to the [facility] ED on 11/02/22 at the recommendation of her PCP. Per chart review, the patient has a known history of CKD and hypercalcemia She was last seen in the Nephrology clinic on 08/16/[address] Varner. Per her clinic note, they had been using Prolia injections for her Hypercalcemia with minimal improvement. They did not have an exact etiology for her hypercalcemia at that time but discussed the possibility of hold Ibrance if it continued. She has been getting weekly labs to monitor her anemia, renal function, and electrolytes. Her calcium was noted to be 13.1 earlier today with and increase in cr from 3.18 on 10/15/22 to 4.46 earlier today. In the ED today the patient was found to be afebrile, hemodynamically stable, and stable on RA. Repeat labs in the ED were significant for a Hgb of 8.2 (down from 9.1 on 10/15/22), stable platelets, MCV of 103, cr of 4.24, calcium of 12.3, corrected sodium of 133, glucose of 211, potassium of 5.2, phos of 5.0, alk phos of 105, otherwise stable LFTs, and covid negative. Prior to admission the patient was given 1L NSS. At the time of the exam the patient was resting comfortably in bed with her Daughter sitting bedside, history was obtained from them both. They state that the patient was recently taken off of her Ibrance and started on an Estrogen receptor he (they are unsure of the name at this time) and she has completed two treatments down in [place] so far. They were told yesterday about the patient's hypercalcemia and renal function but she did not want to come to the ED at that time as she felt clinically well. Her daughter was able to talk her into coming into the ED today due to concerns that her labs were getting worse. The patient states that she currently feels well. She denies recent fevers, chills, chest pain, SOB, abdominal pain, nausea, vomiting, diarrhea, dysuria, hematuria, confusion, and recent falls. She confirms that she is still making lots of urine today and just had a normal bowel movement prior to my exam. I explained to the patient that we need to monitor and treat her current KESHA on CKD and her electrolyte abnormalities and she was in agreement with staying. I discussed her wishes regarding possible dialysis if her renal function were to get worse, at this time she would be in agreement with dialysis if it were emergent. We discussed code status and she wishes to be a Full Code. Her Daughter (Adele Matute [phone]) would make decisions for her if she could not make them herself. Per chart review, the patient has been followed outpatient by Dr. Varner of [facility] for her CKD, electrolyte abnormalities, and chronic anemia. She recommedned stopping the Ibrance previously due to concerns that it was the cause of the patient's hypercalcemia and was considering starting the patient on a trial or steroids due to concerns for possible granulomatous disease such as Sarcoid. Please refer to Dr. Chambers's attetsation for any changes to the treatment plan Allergies Allergy/AdvReac Type Severity Reaction Status Date / Time amoxicillin Allergy Severe LIPS Verified 11/02/22 16:10 SWELLED, "RED ALL OVER" doxycycline Allergy Severe LIPS Verified 11/02/22 16:10 SWELLED, "RED ALL OVER". cephalexin [From Keflex] Allergy Intermediate skin Verified 11/02/22 16:10 starts to peel off sulfamethoxazole Allergy Unknown Unknown Verified 11/02/22 16:10 [From Bactrim] trimethoprim [From Bactrim] Allergy Unknown Unknown Verified 11/02/22 16:10 atorvastatin AdvReac Intermediate Myalgia Verified 11/02/22 16:10 Home Medications Medication Instructions Recorded Confirmed Type promethazine 25 mg tablet 25 mg PO Q6H PRN nausea #30 tabs 08/17/19 11/02/22 Rx allopurinol 100 mg tablet 50 mg PO DAILY #45 tabs 11/17/21 11/02/22 Rx venlafaxine 75 mg capsule,extended 75 mg PO DAILY #90 caps 04/07/22 11/02/22 Rx release 24 hr tramadol 50 mg tablet 50 mg PO Q6 PRN Pain 05/19/22 11/02/22 History spironolactone 25 mg tablet 12.5 mg PO DAILY 07/13/22 11/02/22 History omega-3 fatty acids 1,000 mg 2,000 mg PO BID #360 caps 07/19/22 11/02/22 Rx capsule pen needle, diabetic 32 gauge x ##600 07/23/22 09/15/22 Rx 5/32" (UltiCare Pen Needle) clotrimazole-betamethasone 1 1 applic topical BID PRN Skin 11/02/22 11/02/22 History %-0.05 % topical cream Irritation denosumab 60 mg/mL subcutaneous 60 mg subcut WK #1 mL 11/02/22 Rx syringe (Prolia) epoetin kacey 40,000 unit/mL 40,000 unit subcut DIRECTED 11/02/22 11/02/22 History injection solution (Procrit) furosemide 40 mg tablet 20 mg PO BID 11/02/22 11/02/22 History insulin aspart U-100 100 unit/mL 0 sliding scale dose subcut 11/02/22 11/02/22 History (3 mL) subcutaneous pen (Novolog DIRECTED FlexPen U-100 Insulin aspart) insulin glargine 100 unit/mL (3 22 - 25 unit subcut BID 11/02/22 11/02/22 History mL) subcutaneous pen (Lantus Solostar U-100 Insulin) Past Med/Surg History Medical History (Updated 11/02/22 @ 18:17 by Shane Fishman PA-C) (HFpEF) heart failure with preserved ejection fraction KESHA (acute kidney injury) post-operative 2018 - short term dialysis Anemia Breast cancer diagnosed 2020 Candidal intertrigo Chronic kidney disease, stage 4 (severe) Chronic kidney disease, stage III (moderate) Chronic stasis dermatitis Crystal arthropathy Dyslipidemia GERD (gastroesophageal reflux disease) HTN (hypertension) Hyperuricemia Iron deficiency anemia Mobitz type 1 second degree AV block MCKENZIE (nonalcoholic steatohepatitis) Seborrheic dermatitis Statin myopathy Type 2 diabetes mellitus Vitamin D deficiency Surgical History History of appendectomy History of tonsillectomy and adenoidectomy Humerus fracture surgical repair Hx of cholecystectomy Family History Father Depression Diabetes Mother Hypertension Kidney stones Gallbladder disease Denies family history of Ovarian cancer Prostate cancer Myocardial infarction Breast cancer Colorectal cancer Social History Smoking Status: Never smoker Second Hand Exposure: No; Hx Alcohol Use: No Hx Substance Use: No Preferred Language: Sammarinese Communication Ability: Effective Visual Impairment: Limited Hearing Ability: Normal Reordering Clerk Required: No Beliefs That Will Affect Care: None marital status: Current Living Situation: Spouse 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 All systems have been reviewed and are otherwise negative. Physical Exam Physical Exam: Physical Exam: General: In no acute distress, stated age, chronically ill-appearing but non- toxic appearing HEENT: Normocephalic, atraumatic, no scleral icterus, patient is blind in the right eye put the left pupil is round and reactive to light, moist mucus membranes, trachea midline, no thyromegaly Chest/Pulm: No respiratory distress, symmetrical chest expansion, clear breath sounds throughout Cardiac: RRR, no murmurs noted Abdomen: Negative for ascites and bruising, normoactive bowel sounds, soft, non-tender to palpation throughout Musculoskeletal: Symmetrical and without signs of acute trauma, upper and lower extremities with full ROM, no atrophy, spasticity, or flaccidity Extremities: Radial, dorsalis pedis, and posterior tibial pulses are intact and symmetrical, no edema noted in the BL LE's Skin: Warm, dry, no rashes , lesions, or scars noted Neuro: Alert and oriented to person, place, month, year, and president, no focal defects,no tremors noted Psych: No acute distress, calm and cooperative during the exam Results & Data Results & Data ([facility]) Vital Signs (Past 12 Hours) Vital Signs Temp Pulse Resp BP Pulse Ox O2 Del Method 11/02/22 13:24 37.0 C 90 20 167/65 H 95 Room Air Laboratory Results Abnormal lab results 11/02/22 11/02/22 11/02/22 Range/Units 13:45 13:45 15:03 RBC 2.47 L (4.20-5.40) M/uL Hgb 8.2 L (12.0-16.0) g/dl Hct 25.6 L (37.0-47.0) % MCV 103.6 H (80.0-100.0) fL RDW Std Deviation 55.0 H (36.4-46.3) fL Reticulocyte % (Auto) 2.3 H (0.5-2.0) % Neut # (Auto) 6.98 H (1.40-6.50) K/uL Lymph # (Auto) 1.05 L (1.2-3.4) K/uL PT (9.0-12.0) Seconds Sodium 131 L (136-145) mmol/L Potassium 5.2 H (3.5-5.1) mmol/L BUN 65 H (6-23) mg/dl Creatinine 4.24 H (0.6-1.2) mg/dl Glucose 211 H (70-99(Fasting)) mg/dl Calcium 12.3 H* (8.5-10.1) mg/dl Phosphorus 5.0 H (2.5-4.9) mg/dl Transferrin 194 L (200-360) mg/dl AST 12 L (13-39) U/L Alkaline Phosphatase 105 H (34-104) U/L Total Protein 8.5 H (6.0-8.3) gm/dl Globulin 5.0 H (2.5-4.0) gm/dl Albumin/Globulin Ratio 0.7 L (0.9-2) 11/02/22 Range/Units 15:03 RBC (4.20-5.40) M/uL Hgb (12.0-16.0) g/dl Hct (37.0-47.0) % MCV (80.0-100.0) fL RDW Std Deviation (36.4-46.3) fL Reticulocyte % (Auto) (0.5-2.0) % Neut # (Auto) (1.40-6.50) K/uL Lymph # (Auto) (1.2-3.4) K/uL PT 12.1 H (9.0-12.0) Seconds Sodium (136-145) mmol/L Potassium (3.5-5.1) mmol/L BUN (6-23) mg/dl Creatinine (0.6-1.2) mg/dl Glucose (70-99(Fasting)) mg/dl Calcium (8.5-10.1) mg/dl Phosphorus (2.5-4.9) mg/dl Transferrin (200-360) mg/dl AST (13-39) U/L Alkaline Phosphatase (34-104) U/L Total Protein (6.0-8.3) gm/dl Globulin (2.5-4.0) gm/dl Albumin/Globulin Ratio (0.9-2) Diagnostic Findings Chest X-Ray 11/02/22 16:45 XR chest 1V portable CLINICAL HISTORY: heart failure COMPARISON STUDY: Chest radiograph May 21, 2022. FINDINGS: Proximal right humeral internal fixation is partially imaged. There is no pneumothorax. Suspected trace bilateral pleural effusions are present. There is mild pulmonary edema. This is decreased when compared to exam of May 21, 2022. Cardiomegaly is unchanged. There is no consolidation to suggest pneumonia. IMPRESSION: Cardiomegaly with mild interstitial pulmonary edema and suspected trace bilateral pleural effusions. ACT 112: Negative or not required by law. Electronically signed by: Bob Alejandre M.D. 11/02/2022 5:05 PM ECG Additional Comments: Junctional rhythm Possible Old Anterior infarct (cited on or before 19-MAY-2022) Abnormal ECG When compared with ECG of 22-MAY-2022 03:00, Junctional rhythm has replaced Sinus rhythm Code Status & VTE Plan Code Status Full code VTE Prophylaxis Plan VTE Prophylaxis will be ordered: Yes Supervising Physician Co-Signing Physician Notes Patient seen and examined, chart reviewed, case discussed with Shane Fishman PA-C and I agree with the assessment and plan as above except as otherwise noted Labs and images reviewed 72-year-old female with a past medical history of breast cancer with bony metastasis chronic hypercalcemia on Prolia as outpatient who was due for a dose today but did not receive this due to her acute illness, DM2, heart failure preserved ejection fraction, MCKENZIE, GERD, hypertension, dyslipidemia who presented as a referral from her PCP for abnormal labs and exacerbation of hypercalcemia. Calcium was elevated, creatinine was elevated as outpatient. Nephrology has been consulted, case was discussed with nephrology at time of admission. At bedside patient is nondistressed, reports she feels well and at her normal baseline, is sitting comfortably in a recliner chair and does not have any shortness of breath or chest pain. She reports she does not have any muscle aches at time of assessment. Breathing is nonlabored and lungs are grossly clear. Heart rate is intermittently tachycardic with normal blood pressure at bedside will defer bisphosphonates at admission, continue on fluids as above and follow labs. Patient had not been responding well to Prolia as outpatient. Agree with management follow-up above. PG Care Time/CCT Total # of Minutes Spent Total Time Spent with Patient: Total time spent is greater than 50% in coordination of care (as documented) at patient's floor/unit and/or counseling patient: C[place] [address] INT INP/OBS CARE MIN Patient Type Established History Comprehensive Exam Comprehensive Medical Decision Making High Complexity Diagnoses Acute kidney injury superimposed on CKD N17.9; N18.9 Hyperkalemia E87.5 Hypercalcemia E83.52 Hyperphosphatemia E83.39 Type 2 diabetes mellitus E11.9 Anemia D64.9 (HFpEF) heart failure with preserved ejection fraction I50.30 Breast cancer C50.912 Breast location: unspecified site of breast Estrogen receptor status: unspecified Laterality: left Patient sex: female MCKENZIE (nonalcoholic steatohepatitis) K75.81 GERD (gastroesophageal reflux disease) K21.9 HTN (hypertension) I10 (1) Breast cancer Breast location: unspecified site of breast Estrogen receptor status: unspecified Laterality: left Patient sex: female Qualified Code(s): C50.912 - Malignant neoplasm of unspecified site of left female breast
--- NOTE | 2022-11-02 16:06 | Electrocardiogram Report ---
Test Reason : Blood Pressure : / mmHG Vent. Rate : 056 BPM Atrial Rate : 060 BPM P-R Int : 000 ms QRS Dur : 104 ms QT Int : 388 ms P-R-T Axes : 000 074 -05 degrees QTc Int : 374 ms Junctional rhythm Possible Old Anterior infarct (cited on or before 19-MAY-2022) Abnormal ECG When compared with ECG of 22-MAY-2022 03:00, Junctional rhythm has replaced Sinus rhythm Confirmed by Triston Jones ([id number]) on 11/02/2022 4:06:32 PM Referred By: Confirmed By:Triston Jones
[2022-11-02] MEDS ORDERED: DEXTROSE 50% 50 ML SYRINGE IV PRN (16:07)
[2022-11-02] MEDS ORDERED: GLUCOSE 10 TAB/TUBE PO PRN (16:07)
[2022-11-02] MEDS ORDERED: GLUCOSE 40% GEL 15 GM TUBE PO PRN (16:07)
[2022-11-02] MEDS ORDERED: GLUCAGON FOR INJ 1 MG VIAL SQ PRN (16:07)
[2022-11-02] MEDS ORDERED: CARBOHYDRATES FOR HYPOGLYCEMIA PO PRN (16:07)
[2022-11-02 16:09] LABS: Ferritin 191.6 ng/ml (8-388)
[2022-11-02] MEDS ORDERED: FUROSEMIDE 40 MG/4 ML VIAL IV STA (16:09)
--- NOTE | 2022-11-02 16:32 | Emergency Department Note ---
Impression & Plan Acute kidney injury superimposed on CKD, Hypercalcemia, Hyperkalemia, Hyperphosphatemia ED Provider Note NAME: ANGELA CEBALLOS AGE: 72 SEX: F ARRIVES VIA: Walk-In INFORMANT: Patient ED PROVIDER(S): Arnie Cnostantino MD CHIEF COMPLAINT: Acute on chronic renal insufficiency, hypercalcemia, anemia, referred. PLAN: Disposition: Admit MEDICAL DECISION MAKING: The patient is a pleasant 72-year-old woman with a past medical history of breast cancer undergoing treatment, CKD, iron deficiency anemia, hypercalcemia, Conde, GERD, diabetes who presents to the emergency department referred from her nephrology office for evaluation and admission for further management of chronic hypercalcemia, worsening renal insufficiency and anemia in the setting of outpatient management for the same. The patient denies any new symptoms including denies confusion, abdominal pain, constipation. She further denies any cough, congestion, nausea, vomiting, diarrhea or urinary symptoms. She reports she is still urinating at her baseline. She denies any bloody or black stools. On arrival patient is no acute distress, afebrile blood pressure 160s/60s and vital signs otherwise stable. She appears clinically dry. EKG demonstrates junctional rhythm without overt acute ischemia. WBC and platelets within normal limits. H/H 8.2/25.6 decreased from last month but improved from yesterday. Chemistry without metabolic acidosis. Creatinine 4.2 improved from yesterday however overall with worsening trend over the past couple of months. Calcium is 12.3 improved from 13.1 yesterday. Phosphorus 5.0 and potassium 5.2. LFTs unremarkable. INR within normal limits. Given the patient's worsening renal function with hypercalcemia and anemia the patient and her family agree with plan for admission. IVF hydration initiated with NSS @ 250cc/hr given acute on chronic renal failure. Case was discussed with LAYLA Nevarez admitting resident with Dr. Chambers, [facility] hospitalist, who will evaluate the patient for admission. Triage Nursing notes reviewed and agree them. Prior/outside medical records reviewed Vital Signs: reviewed Differential diagnosis: Infection, dehydration, metabolic abnormality, hypo/hyperglycemia, electrolyte disturbance, anemia, hypoxia, cardiac sources, intracerebral event, toxicologic, neurologic, as well as other pathologies. ER treatment provided: See below. Diagnostics interpreted by me: ECG: Junctional rhythm, 56 bpm, no ectopy, no overt ST elevation or depression, QTc 374, QRS 104 Cardiac Monitoring: An order for continuous cardiac monitoring was placed and demonstrated Junctional rhythm, 56 bpm, no ectopy. Laboratory studies: See below Imaging studies: See below Consultation(s): Dr. Fishman, LAYLA admitting resident with Dr. Chambers, [facility] hospitalist. HPI: The patient is a pleasant 72-year-old woman with a past medical history of breast cancer undergoing treatment, CKD, iron deficiency anemia, hypercalcemia, Conde, GERD, diabetes who presents to the emergency department referred from her nephrology office for evaluation and admission for further management of chronic hypercalcemia, worsening renal insufficiency and anemia in the setting of outpatient management for the same. The patient denies any new symptoms including denies confusion, abdominal pain, constipation. She further denies any cough, congestion, nausea, vomiting, diarrhea or urinary symptoms. She reports she is still urinating at her baseline. She denies any bloody or black stools. ROS: See above HPI for pertinent positives & negatives. A total of 10 systems reviewed and were otherwise negative. VITALS:See Below PHYSICAL EXAMINATION: GENERAL: Awake, alert, well-appearing, in no distress, BMI 46.9. HENT: Normocephalic, atraumatic. Oropharynx with dry mucous membranes and otherwise unremarkable. EYES: Normal conjunctiva. Sclera non-icteric. NECK: Supple. No nuchal rigidity. FROM. No JVD. RESPIRATORY: Clear to auscultation. CARDIAC: Regular rate, normal rhythm. Extremities warm and well perfused. Pulses equal. ABDOMEN: Soft, non-distended. No tenderness to palpation. No rebound or guarding. No masses. RECTAL: Deferred. MUSCULOSKELETAL: Chest examination reveals no tenderness. The back is symmet rical on inspection without obvious abnormality. There is no CVA tenderness to palpation. No joint edema. LOWER EXTREMITIES: Calves are equal size bilaterally and non-tender. No edema. No discoloration. NEURO: Normal sensorium. No sensory or motor deficits noted. SKIN: No rash or jaundice noted. ED COURSE: Critical Care: I have personally spent greater than 35 minutes of critical care time in the direct management of this patient. This includes bedside care, interpretation of diagnostic studies, and testing, discussion with consultants, patient, and family members, and other required patient management activities. This 35 minutes is in excess of all separately billable procedures. Arnie Constantino MD Past Med/Surg History Medical History (Updated 11/03/22 @ 01:14 by Arnie Constantino MD) (HFpEF) heart failure with preserved ejection fraction JEFFREY (acute kidney injury) post-operative 2018 - short term dialysis Anemia Breast cancer diagnosed 2020 Candidal intertrigo Chronic kidney disease, stage 4 (severe) Chronic kidney disease, stage III (moderate) Chronic stasis dermatitis Crystal arthropathy Dyslipidemia GERD (gastroesophageal reflux disease) HTN (hypertension) Hyperuricemia Iron deficiency anemia Mobitz type 1 second degree AV block CONDE (nonalcoholic steatohepatitis) Seborrheic dermatitis Statin myopathy Type 2 diabetes mellitus Vitamin D deficiency Surgical History History of appendectomy History of tonsillectomy and adenoidectomy Humerus fracture surgical repair Hx of cholecystectomy Family History Father Depression Diabetes Mother Hypertension Kidney stones Gallbladder disease Denies family history of Ovarian cancer Prostate cancer Myocardial infarction Breast cancer Colorectal cancer Social History Smoking Status: Never smoker Second Hand Exposure: No; Hx Alcohol Use: No Hx Substance Use: No Preferred Language: Greenlandic Communication Ability: Effective Visual Impairment: Limited Hearing Ability: Normal Retail Planning Manager Required: No Beliefs That Will Affect Care: None marital status: Current Living Situation: Spouse and Family 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 Other Information That Helps Us Care for You: No Feels Safe at Home: Yes Safety Concerns: Feels Safe At This Time Childhood Exposure to Second-Hand Smoke: No Dental Care, Regularly: Yes Physical Activity Frequency: Does not Exercise Seatbelt Use: never Sunscreen Use: No Assistive Devices: Cane, Glasses, Walker and Wheelchair Assistive Devices Comment: Scooter, Allergies Allergies Allergy/AdvReac Type Severity Reaction Status Date / Time amoxicillin Allergy Severe LIPS Verified 11/02/22 16:10 SWELLED, "RED ALL OVER" doxycycline Allergy Severe LIPS Verified 11/02/22 16:10 SWELLED, "RED ALL OVER". cephalexin [From Keflex] Allergy Intermediate skin Verified 11/02/22 16:10 starts to peel off sulfamethoxazole Allergy Unknown Unknown Verified 11/02/22 16:10 [From Bactrim] trimethoprim [From Bactrim] Allergy Unknown Unknown Verified 11/02/22 16:10 atorvastatin AdvReac Intermediate Myalgia Verified 11/02/22 16:10 Home Meds Home Medications Medication Instructions Recorded Confirmed tramadol 50 mg tablet 50 mg PO Q6 PRN Pain 05/19/22 11/02/22 spironolactone 25 mg tablet 12.5 mg PO DAILY 07/13/22 11/02/22 clotrimazole-betamethasone 1 1 applic topical BID PRN Skin 11/02/22 11/02/22 %-0.05 % topical cream Irritation epoetin kacey 40,000 unit/mL 40,000 unit subcut DIRECTED 11/02/22 11/02/22 injection solution (Procrit) furosemide 40 mg tablet 20 mg PO BID 11/02/22 11/02/22 insulin aspart U-100 100 unit/mL 0 sliding scale dose subcut 11/02/22 11/02/22 (3 mL) subcutaneous pen (Novolog DIRECTED FlexPen U-100 Insulin aspart) insulin glargine 100 unit/mL (3 22 - 25 unit subcut BID 11/02/22 11/02/22 mL) subcutaneous pen (Lantus Solostar U-100 Insulin) Previous Rx's Medication Instructions Recorded promethazine 25 mg tablet 25 mg PO Q6H PRN nausea #30 tabs 08/17/19 allopurinol 100 mg tablet 50 mg PO DAILY #45 tabs 11/17/21 venlafaxine 75 mg capsule,extended 75 mg PO DAILY #90 caps 04/07/22 release 24 hr omega-3 fatty acids 1,000 mg 2,000 mg PO BID #360 caps 07/19/22 capsule pen needle, diabetic 32 gauge x ##600 07/23/22" (UltiCare Pen Needle) denosumab 60 mg/mL subcutaneous 60 mg subcut WK #1 mL 11/02/22 syringe (Prolia) Results & Data (ED) Vital Signs Vital Signs - 24 hr 11/02/22 13:24 11/02/22 15:02 11/02/22 15:02 Temperature 37.0 C Temperature Source Temporal Artery Scan Pulse Rate 90 52 L Pulse Rate from SpO2 Sensor 53 L Pulse Rhythm Regular Pulse Strength Normal Respiratory Rate 20 18 Respiratory Effort / Characteristics Non-Labored Respiratory Depth Normal Blood Pressure 167/65 H 152/51 H Blood Pressure Mean 99 84 Blood Pressure Position Sitting Pulse Oximetry 95 96 Oxygen Delivery Method Room Air Sepsis Recent Fever Within 48 Hours No Sepsis New/Unexplained Change in Mental Status No Sepsis Action Taken by Nursing No Action Required 11/02/22 15:30 11/02/22 16:00 11/02/22 16:00 Temperature Temperature Source Pulse Rate 53 L 54 L Pulse Rate from SpO2 Sensor 53 L 56 L Pulse Rhythm Pulse Strength Respiratory Rate 23 23 Respiratory Effort / Characteristics Respiratory Depth Blood Pressure 157/60 H Blood Pressure Mean 92 Blood Pressure Position Pulse Oximetry 98 98 Oxygen Delivery Method Sepsis Recent Fever Within 48 Hours Sepsis New/Unexplained Change in Mental Status Sepsis Action Taken by Nursing Laboratory Data Attestation: I reviewed the patient's lab results. 11/02/22 13:45 11/02/22 13:45 Lab Results 11/02/22 11/02/22 11/02/22 Range/Units 13:45 13:45 13:45 WBC 8.91 (4.8-10.8) K/ul RBC 2.47 L (4.20-5.40) M/uL Hgb 8.2 L (12.0-16.0) g/dl Hct 25.6 L (37.0-47.0) % MCV 103.6 H (80.0-100.0) fL MCH 33.2 (25.0-34.0) pg MCHC 32.0 (32.0-36.0) g/dL RDW Std Deviation 55.0 H (36.4-46.3) fL RDW Coeff of Amparo 14.5 (11.5-14.5) % Plt Count 219 (130-400) K/uL MPV 10.9 (9.4-12.4) fL Immature Gran % (Auto) 0.9 % Neut % (Auto) 78.4 % Lymph % (Auto) 11.8 % Terry % (Auto) 5.9 % Eos % (Auto) 2.7 % Baso % (Auto) 0.3 % Reticulocyte % (Auto) 2.3 H (0.5-2.0) % Neut # (Auto) 6.98 H (1.40-6.50) K/uL Lymph # (Auto) 1.05 L (1.2-3.4) K/uL Terry # (Auto) 0.53 (0.11-0.59) K/uL Eos # (Auto) 0.24 (0-0.50) K/uL Baso # (Auto) 0.03 (0-0.2) K/uL Reticulocyte # 0.06 (0.02-0.10) 10^6/uL Immature Gran # (Auto) 0.08 (0.01-0.20) K/uL PT Cancelled INR Cancelled Sodium 131 L (136-145) mmol/L Potassium 5.2 H (3.5-5.1) mmol/L Chloride 100 (98-107) mmol/L Carbon Dioxide 21 (21-32) mmol/L Anion Gap 10 (3-11) BUN 65 H (6-23) mg/dl Creatinine 4.24 H (0.6-1.2) mg/dl Est Cr Clr Drug Dosing Not Reportable Est GFR ( Amer) 11.2 ml/min Est GFR (Non-Af Amer) 9.7 ml/min BUN/Creatinine Ratio 15.3 (10-20) Glucose 211 H (70-99(Fasting)) mg/dl Calcium 12.3 H* (8.5-10.1) mg/dl Phosphorus 5.0 H (2.5-4.9) mg/dl Magnesium 2.2 (1.7-2.4) mg/dl Iron (35-150) mcg/dl Unsaturated IBC (155-355) mcg/dl Transferrin (200-360) mg/dl Ferritin (8-388) ng/ml Total Bilirubin 0.5 (0.2-1.0) mg/dl AST 12 L (13-39) U/L ALT 10 (7-52) U/L Alkaline Phosphatase 105 H (34-104) U/L Total Protein 8.5 H (6.0-8.3) gm/dl Albumin 3.5 (3.4-5.0) gm/dl Globulin 5.0 H (2.5-4.0) gm/dl Albumin/Globulin Ratio 0.7 L (0.9-2) Vitamin B12 Folate TSH (0.300-4.500) uIu/ml SARS-CoV-2, RNA, NAAT (NEGATIVE) Blood Type Antibody Screen 11/02/22 11/02/22 11/02/22 Range/Units 15:00 15:03 15:03 WBC (4.8-10.8) K/ul RBC (4.20-5.40) M/uL Hgb (12.0-16.0) g/dl Hct (37.0-47.0) % MCV (80.0-100.0) fL MCH (25.0-34.0) pg MCHC (32.0-36.0) g/dL RDW Std Deviation (36.4-46.3) fL RDW Coeff of Amparo (11.5-14.5) % Plt Count (130-400) K/uL MPV (9.4-12.4) fL Immature Gran % (Auto) % Neut % (Auto) % Lymph % (Auto) % Terry % (Auto) % Eos % (Auto) % Baso % (Auto) % Reticulocyte % (Auto) (0.5-2.0) % Neut # (Auto) (1.40-6.50) K/uL Lymph # (Auto) (1.2-3.4) K/uL Terry # (Auto) (0.11-0.59) K/uL Eos # (Auto) (0-0.50) K/uL Baso # (Auto) (0-0.2) K/uL Reticulocyte # (0.02-0.10) 10^6/uL Immature Gran # (Auto) (0.01-0.20) K/uL PT INR Sodium (136-145) mmol/L Potassium (3.5-5.1) mmol/L Chloride (98-107) mmol/L Carbon Dioxide (21-32) mmol/L Anion Gap (3-11) BUN (6-23) mg/dl Creatinine (0.6-1.2) mg/dl Est Cr Clr Drug Dosing Est GFR ( Amer) ml/min Est GFR (Non-Af Amer) ml/min BUN/Creatinine Ratio (10-20) Glucose (70-99(Fasting)) mg/dl Calcium (8.5-10.1) mg/dl Phosphorus (2.5-4.9) mg/dl Magnesium (1.7-2.4) mg/dl Iron (35-150) mcg/dl Unsaturated IBC (155-355) mcg/dl Transferrin (200-360) mg/dl Ferritin (8-388) ng/ml Total Bilirubin (0.2-1.0) mg/dl AST (13-39) U/L ALT (7-52) U/L Alkaline Phosphatase (34-104) U/L Total Protein (6.0-8.3) gm/dl Albumin (3.4-5.0) gm/dl Globulin (2.5-4.0) gm/dl Albumin/Globulin Ratio (0.9-2) Vitamin B12 Folate Cancelled TSH 3.030 (0.300-4.500) uIu/ml SARS-CoV-2, RNA, NAAT NEGATIVE (NEGATIVE) Blood Type Antibody Screen 11/02/22 11/02/22 11/02/22 Range/Units 15:03 15:03 15:03 WBC (4.8-10.8) K/ul RBC (4.20-5.40) M/uL Hgb (12.0-16.0) g/dl Hct (37.0-47.0) % MCV (80.0-100.0) fL MCH (25.0-34.0) pg MCHC (32.0-36.0) g/dL RDW Std Deviation (36.4-46.3) fL RDW Coeff of Amparo (11.5-14.5) % Plt Count (130-400) K/uL MPV (9.4-12.4) fL Immature Gran % (Auto) % Neut % (Auto) % Lymph % (Auto) % Terry % (Auto) % Eos % (Auto) % Baso % (Auto) % Reticulocyte % (Auto) (0.5-2.0) % Neut # (Auto) (1.40-6.50) K/uL Lymph # (Auto) (1.2-3.4) K/uL Terry # (Auto) (0.11-0.59) K/uL Eos # (Auto) (0-0.50) K/uL Baso # (Auto) (0-0.2) K/uL Reticulocyte # (0.02-0.10) 10^6/uL Immature Gran # (Auto) (0.01-0.20) K/uL PT INR Sodium (136-145) mmol/L Potassium (3.5-5.1) mmol/L Chloride (98-107) mmol/L Carbon Dioxide (21-32) mmol/L Anion Gap (3-11) BUN (6-23) mg/dl Creatinine (0.6-1.2) mg/dl Est Cr Clr Drug Dosing Est GFR ( Amer) ml/min Est GFR (Non-Af Amer) ml/min BUN/Creatinine Ratio (10-20) Glucose (70-99(Fasting)) mg/dl Calcium (8.5-10.1) mg/dl Phosphorus (2.5-4.9) mg/dl Magnesium (1.7-2.4) mg/dl Iron 39 (35-150) mcg/dl Unsaturated IBC 221 (155-355) mcg/dl Transferrin 194 L (200-360) mg/dl Ferritin 191.6 (8-388) ng/ml Total Bilirubin (0.2-1.0) mg/dl AST (13-39) U/L ALT (7-52) U/L Alkaline Phosphatase (34-104) U/L Total Protein (6.0-8.3) gm/dl Albumin (3.4-5.0) gm/dl Globulin (2.5-4.0) gm/dl Albumin/Globulin Ratio (0.9-2) Vitamin B12 Cancelled Folate TSH (0.300-4.500) uIu/ml SARS-CoV-2, RNA, NAAT (NEGATIVE) Blood Type O Positive Antibody Screen NEGATIVE 11/02/22 11/02/22 Range/Units 15:03 15:03 WBC (4.8-10.8) K/ul RBC (4.20-5.40) M/uL Hgb (12.0-16.0) g/dl Hct (37.0-47.0) % MCV (80.0-100.0) fL MCH (25.0-34.0) pg MCHC (32.0-36.0) g/dL RDW Std Deviation (36.4-46.3) fL RDW Coeff of Amparo (11.5-14.5) % Plt Count (130-400) K/uL MPV (9.4-12.4) fL Immature Gran % (Auto) % Neut % (Auto) % Lymph % (Auto) % Terry % (Auto) % Eos % (Auto) % Baso % (Auto) % Reticulocyte % (Auto) (0.5-2.0) % Neut # (Auto) (1.40-6.50) K/uL Lymph # (Auto) (1.2-3.4) K/uL Terry # (Auto) (0.11-0.59) K/uL Eos # (Auto) (0-0.50) K/uL Baso # (Auto) (0-0.2) K/uL Reticulocyte # (0.02-0.10) 10^6/uL Immature Gran # (Auto) (0.01-0.20) K/uL PT 12.1 H INR 1.1 Sodium (136-145) mmol/L Potassium (3.5-5.1) mmol/L Chloride (98-107) mmol/L Carbon Dioxide (21-32) mmol/L Anion Gap (3-11) BUN (6-23) mg/dl Creatinine (0.6-1.2) mg/dl Est Cr Clr Drug Dosing Est GFR ( Amer) ml/min Est GFR (Non-Af Amer) ml/min BUN/Creatinine Ratio (10-20) Glucose (70-99(Fasting)) mg/dl Calcium (8.5-10.1) mg/dl Phosphorus (2.5-4.9) mg/dl Magnesium (1.7-2.4) mg/dl Iron (35-150) mcg/dl Unsaturated IBC (155-355) mcg/dl Transferrin (200-360) mg/dl Ferritin (8-388) ng/ml Total Bilirubin (0.2-1.0) mg/dl AST (13-39) U/L ALT (7-52) U/L Alkaline Phosphatase (34-104) U/L Total Protein (6.0-8.3) gm/dl Albumin (3.4-5.0) gm/dl Globulin (2.5-4.0) gm/dl Albumin/Globulin Ratio (0.9-2) Vitamin B12 356 Folate 16.99 TSH (0.300-4.500) uIu/ml SARS-CoV-2, RNA, NAAT (NEGATIVE) Blood Type Antibody Screen Administered Medications Heparin Sodium (Porcine) (Heparin Sod 5,000 Unit/0.5 Ml Vial) 5,000 units SQ Q8 TYLOR Stop: 12/02/22 21:59 Last Admin: 11/02/22 21:27 Dose: Not Given Documented By: ERNESTINE Sodium Chloride (Nss) 500 mls @ 80 mls/hr IV .Q6H15M TYLOR Stop: 11/03/22 05:10 Last Admin: 11/02/22 22:56 Dose: 80 mls/hr Documented By: Infusion: 11/02/22 22:55 Dose: 0 mls/hr Documented By: Admin: 11/02/22 17:11 Dose: 100 mls/hr Documented By: GORDON Insulin Aspart (Insulin Aspart Per Unit) 0 units SC Q6 TYLOR Stop: 12/02/22 16:14 Last Admin: 11/02/22 23:33 Dose: 10 units Documented By: ERNESTINE Co-signed By: TORIBIO Admin: 11/02/22 21:25 Dose: Not Given Documented By: Admin: 11/02/22 21:08 Dose: 4 units Documented By: ERNESTINE Co-signed By: CONCEPCION Insulin Glargine (Lantus Per Unit Charge) 5 units SQ BID TYLOR Stop: 12/02/22 20:59 Last Admin: 11/02/22 21:08 Dose: 5 units Documented By: ERNESTINE Co-signed By: CONCEPCION Pantoprazole Sodium (Pantoprazole 40 Mg Tab) 40 mg PO QAM [facility] Stop: 12/02/22 18:29 Last Admin: 11/02/22 21:27 Dose: Not Given Documented By: ERNESTINE Prednisone (Prednisone 20 Mg Tab) 40 mg PO DAILY [facility] Stop: 12/02/22 16:44 Last Admin: 11/02/22 17:11 Dose: 40 mg Documented By: GORDON Discontinued Medications Furosemide (Furosemide 40 Mg/4 Ml Vial) 40 mg IV [facility] Stop: 11/02/22 16:10 Last Admin: 11/02/22 17:11 Dose: 40 mg Documented By: GORDON Sodium Chloride (Nss 1000ml) 1,000 mls @ 250 mls/hr IV .Q4H ONE Stop: 11/02/22 18:15 Last Infusion: 11/02/22 19:27 Dose: 0 mls/hr Documented By: Admin: 11/02/22 15:13 Dose: 250 mls/hr Documented By: AY Discharge Plan Visit Data Chief Complaint: Referred by Doctor Stated Complaint: HIGH CA, LOW HEMOGLOBIN ED Provider: Arnie Constantino Discharge Problem: Acute kidney injury superimposed on CKD, Hypercalcemia, Hyperkalemia, Hyperphosphatemia Patient Disposition: Admitted As Inpatient Discharge Instructions Interventions: ED Discharge Assessment Last Done: 11/02/22 18:23
[2022-11-02] MEDS ORDERED: traMADol HCL 50 MG TABLET PO PRN (16:40)
--- NOTE | 2022-11-02 17:06 | XRay Report ---
XR chest 1V portable CLINICAL HISTORY: heart failure COMPARISON STUDY: Chest radiograph May 21, 2022. FINDINGS: Proximal right humeral internal fixation is partially imaged. There is no pneumothorax. Ines pected trace bilateral pleural effusions are present. There is mild pulmonary edema. This is decrease d when compared to exam of May 21, 2022. Cardiomegaly is unchanged. There is no consolidation to s uggest pneumonia. IMPRESSION: Cardiomegaly with mild interstitial pulmonary edema and suspected trace bilateral pleura l effusions. ACT 112: Negative or not required by law. Electronically signed by: Bob Alejandre M.D. 11/02/2022 5:05 PM
[2022-11-02] MEDS: SODIUM CHLORIDE 0.9% 500 ML IV SCH ×2 (17:11→22:56)
[2022-11-02] MEDS: predniSONE 20 MG TAB PO SCH (17:11)
[2022-11-02 20:44] LABS: BUN Creatinine Ratio 16.5 (10-20); Calcium 12.1 mg/dl (8.5-10.1); Creatinine Clr Calc Pharmacy 13.8 ml/min; Est GFR (Non-African American) 10.4 ml/min; Magnesium 2.2 mg/dl (1.7-2.4); Phosphorus 4.8 mg/dl (2.5-4.9); Potassium 4.7 mmol/L (3.5-5.1)
[2022-11-02] MEDS ORDERED: LANTUS PER UNIT CHARGE SQ SCH (21:00)
[2022-11-02] MEDS: INSULIN ASPART PER UNIT SC SCH ×3 (21:08→23:33)
[2022-11-02] MEDS: HEPARIN SOD 5,000 UNIT/0.5 ML VIAL SQ SCH (21:27)
[2022-11-02] MEDS: PANTOprazole 40 MG TAB PO SCH (21:27)
[2022-11-02 23:10] LABS: BUN Creatinine Ratio 16.8 (10-20); Calcium 11.7 mg/dl (8.5-10.1); Est GFR (African American) 12.2 ml/min; Est GFR (Non-African American) 10.6 ml/min; Magnesium 2.2 mg/dl (1.7-2.4); Phosphorus 5.1 mg/dl (2.5-4.9)
[2022-11-03] MEDS ORDERED: INSULIN ASPART PER UNIT SC STA (02:08)
[2022-11-03 03:08] LABS: BUN Creatinine Ratio 17.4 (10-20); Calcium 11.9 mg/dl (8.5-10.1); Creatinine Clr Calc Pharmacy 13.9 ml/min; Est GFR (African American) 12.1 ml/min; Est GFR (Non-African American) 10.5 ml/min; Phosphorus 5.1 mg/dl (2.5-4.9); Potassium 4.7 mmol/L (3.5-5.1)
[2022-11-03] MEDS: HEPARIN SOD 5,000 UNIT/0.5 ML VIAL SQ SCH ×3 (05:23→20:13)
[2022-11-03] MEDS: INSULIN ASPART PER UNIT SC SCH ×3 (05:43→22:37)
[2022-11-03 06:54] LABS: Appearance Urine Clear (Clear); Bacteria Urine Automated 4+ (Negative); Bilirubin Urine Negative (Negative); Blood Urine Negative (Negative); Color Urine Yellow; Epithelial Cell Urine Auto >30 /lpf (0-5); Glucose Urine UA Trace (Negative); Ketones Urine Negative (Negative); Leukocyte Esterase Urine Trace (Negative); Nitrite Urine Positive (Negative); Protein Urine 1+ (Negative); RBC Urine Automated 0-4 /hpf (0-4); Specific Gravity Urine 1.011 (1.000-1.030); Urobilinogen Urine Negative (Negative)
--- NOTE | 2022-11-03 07:28 | Hospitalist Progress Note ---
Date of Service November 03, 2022 Assessment & Plan (1) Acute kidney injury superimposed on CKD: (2) Hypercalcemia: (3) Hyperkalemia: (4) Hyperphosphatemia: (5) Type 2 diabetes mellitus: (6) (HFpEF) heart failure with preserved ejection fraction: (7) Anemia: (8) GERD (gastroesophageal reflux disease): (9) Breast cancer: Plan Pt is 72 yo female with PMH of stage 5 CKD, CHF, MCKENZIE, GERD, HTN, DM, and dyslipidemia presenting to the hospital from her PCP office d/t hypercalcemia and low Hgb. Acute kidney injury superimposed on CKD - hx of CKD IV; follows w/ Dr. Varner - original labs showed Cr of 4.46 w/ baseline around 3.0 - likely multifactorial including risk from current chemotherapy for breast cancer - pt w/ several metabolic derangements; hyperkalemia, hypercalcemia, hyponatremia, and hyperphosphatemia - s/p 40 mg IV lasix for her hyperkalemia, 1 L NS upon admission - addition of 40 mg prednisone daily for possible granulomatous disease; pt refusing CT scans for diagnostic clarity at this time - continue IVF w/ NS at 100 mL/hr in addition to 20 mg oral lasix - continue to hold spironolactone - continue to monitor BMP, CBC, mag, and phos Hyperkalemia, hypercalcemia, hyperphosphatemia - as above Multifactorial anemia - Hgb is currently stable w/ elevated MCV - folate normal, B12 normal, vitamin D low - iron studies low normal - pt receives procrit injections outpatient - continue iron infusions x5 days Chronic Heart failure with preserved ejection fraction - CXR obtained on admission showed mild interstitial pulmonary edema and trace BL pleural effusions - echo 04/2022 showed EF of 60-65% w/ resolution of elevated RVSP compared to prior echo - pt stable on RA w/o SOB - fluid management as above Breast cancer in active tx - followed in [place] by [facility] - was taken off Ibrance and start on an estrogen receptor he recently (beginning of the year) Type 2 diabetes mellitus - pharmacy consulted for management MCKENZIE (nonalcoholic steatohepatitis) - stable GERD (gastroesophageal reflux disease) - continue pantoprazole 40 mg daily HTN (hypertension) - pt uses spironolactone and lasix outpatient - continue holding spironolactone d/t hyperkalemia - continue to monitor Morbid obesity with BMI 46.9 -Outpatient weight management discussion -consider GLP1 agonists Fluids: NS at 100 mL/hr Diet: dialysis renal DVT ppx; SCDs, heparin 5000 units TID (although pt refusing) Code: full Dispo: med/surg w/ tele Admission and Anticipated Discharge Date Admission Date: November 02, 2022 Supervising Physician Co-Signing Physician Notes Resident Physician Supervision Note: I independently interviewed and examined the patient and verified the barrett history and physical, reviewed labs and image studies and agree with resident findings and care plan. Subjective Pt is 72 yo female with PMH of stage 5 CKD, CHF, MCKENZIE, GERD, HTN, DM, and dyslipidemia presenting to the hospital from her PCP office d/t hypercalcemia and low Hgb. Pt seen at bedside this AM. She explains that she feels fine and was only sent in because of her lab work. She explains that she recently started a new cancer treatment instead of the Ibranz d/t issues with her kidneys. Pt denies lightheadedness, dizziness, urinary symptoms, chest pain, SOB, and leg pains. Review of Systems Review of Systems: All systems reviewed & are unremarkable except as noted in HPI & below Physical Exam Constitutional: NAD. Vitals WNL. Eyes: no conjunctival abnormality Respiratory: CTA bilaterally. No rhonchi, wheezing, or crackles. Non labored breathing. Cardiovascular: RRR. No murmur noted. Left LE 2+ pitting edema, right LE 1+ pitting edema. Skin: no rashes, warm and dry Psychiatric: Alert. Mood and affect congruent. Results & Data Results & Data ([facility]) Vital Signs (Past 12 Hours) Vital Signs Temp Pulse Pulse Resp BP Pulse Ox O2 Del Method 11/03/22 03:00 36.5 C 62 18 139/63 95 Room Air 11/03/22 00:00 64 11/02/22 23:03 36.5 C 64 18 174/75 H 95 Room Air Resident Activity Tracking Resident Involvement: Resident Care Provided Care Provided: Adult Hospital Medicine (1) Breast cancer Breast location: unspecified site of breast Estrogen receptor status: unspecified Laterality: left Patient sex: female Qualified Code(s): C50.912 - Malignant neoplasm of unspecified site of left female breast
[2022-11-03 08:13] LABS: Hemoglobin 7.8 g/dl (12.0-16.0); Mean Corpuscular Hemoglobin 32.9 pg (25.0-34.0); Mean Corpuscular Hgb Conc 32.5 g/dL (32.0-36.0); Mean Corpuscular Volume 101.3 fL (80.0-100.0); Mean Platelet Volume 10.7 fL (9.4-12.4); Platelet Count 220 K/uL (130-400); RDW Standard Deviation 51.6 fL (36.4-46.3); Red Blood Count 2.37 M/uL (4.20-5.40); White Blood Count 6.94 K/ul (4.8-10.8)
[2022-11-03 08:31] LABS: Calcium 12.4 mg/dl (8.5-10.1); Creatinine Clr Calc Pharmacy 13.4 ml/min; Est GFR (African American) 11.6 ml/min; Magnesium 2.4 mg/dl (1.7-2.4); Potassium 4.8 mmol/L (3.5-5.1)
--- NOTE | 2022-11-03 08:31 | Nephrology Consultation ---
Date of Consultation November 03, 2022 Assessment & Plan (1) Hypercalcemia: * Hypercalcemia possibly related to breast CA or underlying granulomatous disease * Will provide IV hydration w/ 0.9NS at 100 cc/hr and continue oral Furosemide * Ca is trending down w/ IVF. Hold Calcitonin. Avoid Bisphosphonate due to advanced CKD. Prolia has been ineffective in the outpatient setting * Will start Prednisone 40 mg po daily * Monitor PRP * Consider noncontrast chest & abdominal CT to assess for granulomatous disease (2) Acute kidney injury superimposed on CKD: * Baseline Cr 3.5 * h/o JEFFREY on CKD requiring HD during prior hospitalizations * Briefly discussed advanced CKD w/ patient today. She indicated that she does not want intermediate designer IHD (3) Anemia: * Fe sat 19% with ferritin < 200 * Will start Venofer 200 mg IV daily x 5 days History of Present Illness Reason for Consultation: Hypercalcemia, JEFFREY/CKD, anemia Attending Physician: Sallie Ortiz MD History of Present Illness Mrs. Beyer is a 72 year old white female who is seen at the request of the [facility] Hospitalist Service for evaluation of hypercalcemia, JEFFREY/CKD and anemia. Medical records in the EMR were reviewed today and are summarized as follows: Mrs. Beyer was diagnosed w/ breast cancer with metastasis to the spine in 09/15. She has received Oncologic care at [facility]. She has been on Ibrance therapy. Her medical course has been complicated by recurrent hypercalcemia refractory to Prolia therapy. Oncology did not feel that this is hypercalcemia of malignancy because her metastasis were small/limited. Outpatient evaluation of hypercalcemia has revealed appropriately depressed PTH and low PTHrp. Patient was noted to have a high serum KODY level and high 1,25 Vitamin D concerning for possible underlying granulomatous disease. Laboratory studies 11/01/22 revealed Ca 13.1, Hgb 7.8 and Cr had risen from baseline 3.5 to 4.6. Mrs. Beyer was advised to hospitalization. PMH: HTN, hyperlipidemia, CHF, AODM, GERD and morbid obesity Allergies Allergy/AdvReac Type Severity Reaction Status Date / Time amoxicillin Allergy Severe LIPS Verified 11/02/22 16:10 SWELLED, "RED ALL OVER" doxycycline Allergy Severe LIPS Verified 11/02/22 16:10 SWELLED, "RED ALL OVER". cephalexin [From Keflex] Allergy Intermediate skin Verified 11/02/22 16:10 starts to peel off sulfamethoxazole Allergy Unknown Unknown Verified 11/02/22 16:10 [From Bactrim] trimethoprim [From Bactrim] Allergy Unknown Unknown Verified 11/02/22 16:10 atorvastatin AdvReac Intermediate Myalgia Verified 11/02/22 16:10 Home Medications Medication Instructions Recorded Confirmed Type promethazine 25 mg tablet 25 mg PO Q6H PRN nausea #30 tabs 08/17/19 11/02/22 Rx allopurinol 100 mg tablet 50 mg PO DAILY #45 tabs 11/17/21 11/02/22 Rx venlafaxine 75 mg capsule,extended 75 mg PO DAILY #90 caps 04/07/22 11/02/22 Rx release 24 hr tramadol 50 mg tablet 50 mg PO Q6 PRN Pain 05/19/22 11/02/22 History spironolactone 25 mg tablet 12.5 mg PO DAILY 07/13/22 11/02/22 History omega-3 fatty acids 1,000 mg 2,000 mg PO BID #360 caps 07/19/22 11/02/22 Rx capsule pen needle, diabetic 32 gauge x ##600 07/23/22 09/15/22 Rx 5/32" (UltiCare Pen Needle) clotrimazole-betamethasone 1 1 applic topical BID PRN Skin 11/02/22 11/02/22 History %-0.05 % topical cream Irritation denosumab 60 mg/mL subcutaneous 60 mg subcut WK #1 mL 11/02/22 Rx syringe (Prolia) epoetin kacey 40,000 unit/mL 40,000 unit subcut DIRECTED 11/02/22 11/02/22 History injection solution (Procrit) furosemide 40 mg tablet 20 mg PO BID 11/02/22 11/02/22 History insulin aspart U-100 100 unit/mL 0 sliding scale dose subcut 11/02/22 11/02/22 History (3 mL) subcutaneous pen (Novolog DIRECTED FlexPen U-100 Insulin aspart) insulin glargine 100 unit/mL (3 22 - 25 unit subcut BID 11/02/22 11/02/22 History mL) subcutaneous pen (Lantus Solostar U-100 Insulin) Patient History Medical History (HFpEF) heart failure with preserved ejection fraction JEFFREY (acute kidney injury) post-operative 2018 - short term dialysis Anemia Breast cancer diagnosed 2020 Candidal intertrigo Chronic kidney disease, stage 4 (severe) Chronic kidney disease, stage III (moderate) Chronic stasis dermatitis Crystal arthropathy Dyslipidemia GERD (gastroesophageal reflux disease) HTN (hypertension) Hyperuricemia Iron deficiency anemia Mobitz type 1 second degree AV block MCKENZIE (nonalcoholic steatohepatitis) Seborrheic dermatitis Statin myopathy Type 2 diabetes mellitus Vitamin D deficiency Surgical History History of appendectomy History of tonsillectomy and adenoidectomy Humerus fracture surgical repair Hx of cholecystectomy Family History Father Depression Diabetes Mother Hypertension Kidney stones Gallbladder disease Denies family history of Ovarian cancer Prostate cancer Myocardial infarction Breast cancer Colorectal cancer Social History Smoking Status: Never smoker Second Hand Exposure: No; Hx Alcohol Use: No Hx Substance Use: No Preferred Language: Mosotho Communication Ability: Effective Visual Impairment: Limited Hearing Ability: Normal Lapidarist Required: No Beliefs That Will Affect Care: None marital status: Current Living Situation: Spouse and Family 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 Other Information That Helps Us Care for You: No Feels Safe at Home: Yes Safety Concerns: Feels Safe At This Time Childhood Exposure to Second-Hand Smoke: No Dental Care, Regularly: Yes Physical Activity Frequency: Does not Exercise Seatbelt Use: never Sunscreen Use: No Assistive Devices: Cane, Glasses, Walker and Wheelchair Assistive Devices Comment: Juan C, Review of Systems Constitutional: no fever Eyes: no problem reported Ear, Nose, Mouth, Throat: no problem reported Respiratory: no problem reported Cardiovascular: no problem reported Gastrointestinal: no abdominal pain, no vomiting and no diarrhea/loose stools Genitourinary: no dysuria Neurologic: no localized weakness Physical Exam Constitutional: + obese; not in distress Eyes: PERRL, conjunctivae normal, anicteric sclerae ENMT: external ear and nose normal, oropharynx normal Neck: trachea midline, no thyromegaly Respiratory: normal respiratory effort, lungs clear to auscultation Cardiovascular: Rate/Rhythm: regular rate and regular rhythm Extremities: + edema (1+ pretibial) Gastrointestinal (Abdomen): Inspection/Auscultation: abdomen normal to inspection and normal bowel sounds Percussion/Palpation: abdomen nontender and no guarding Neurologic: Speech / Cognition: normal speech and normal cognition Results & Data ([facility]) Vital Signs (Past 12 Hours) Vital Signs Temp Pulse Pulse Resp BP Pulse Ox O2 Del Method 11/03/22 08:02 36.4 C 48 L 20 134/52 L 97 Room Air 11/03/22 07:00 54 L 11/03/22 03:00 36.5 C 62 18 139/63 95 Room Air 11/03/22 00:00 64 11/02/22 23:03 36.5 C 64 18 174/75 H 95 Room Air Laboratory Results Laboratory Tests 05/22/22 08/25/22 09/06/22 05:13 10:47 14:36 WBC Hgb Hct Plt Count Sodium Potassium Chloride Carbon Dioxide BUN Creatinine Glucose Calcium Iron Unsaturated IBC Ferritin Albumin Angiotensin Convert Enz 88 H 25-OH Vitamin D Total Vit D 1,25-Dihyd Total PTH Intact 10.8 L PTH Related Protein 13 10/15/22 11/01/22 11/02/22 14:11 14:24 13:45 WBC Hgb Hct Plt Count Sodium Potassium Chloride Carbon Dioxide BUN Creatinine Glucose Calcium 13.1 H* Iron Unsaturated IBC Ferritin Albumin 3.5 Angiotensin Convert Enz 152 H 25-OH Vitamin D Total Vit D 1,25-Dihyd Total 116 H PTH Intact PTH Related Protein 11/02/22 11/02/22 11/02/22 15:03 18:42 20:01 WBC Hgb Hct Plt Count Sodium Potassium Chloride Carbon Dioxide BUN Creatinine Glucose Calcium Iron 39 Unsaturated IBC 221 Ferritin 191.6 Albumin Angiotensin Convert Enz 25-OH Vitamin D Total Vit D 1,25-Dihyd Total PTH Intact 13.1 PTH Related Protein Pending 11/02/22 11/03/22 11/03/22 20:01 07:31 09:39 WBC 6.94 Hgb 7.8 L Hct 24.0 L Plt Count 220 Sodium 130 L Potassium 4.9 Chloride 100 Carbon Dioxide 21 BUN 68 H Creatinine 3.69 H D Glucose 234 H Calcium 11.4 H Iron Unsaturated IBC Ferritin Albumin Angiotensin Convert Enz 25-OH Vitamin D Total 16.6 L Vit D 1,25-Dihyd Total PTH Intact PTH Related Protein Diagnostic Findings 11/02/22 CXR: Proximal right humeral internal fixation is partially imaged. There is no pneumothorax. Suspected trace bilateral pleural effusions are present. There is mild pulmonary edema. This is decreased when compared to exam of May 21, 2022. Cardiomegaly is unchanged. There is no consolidation to suggest pneumonia. PG Care Time/CCT Total # of Minutes Spent Total Time Spent with Patient: Total time spent is greater than 50% in coordination of care (as documented) at patient's floor/unit and/or counseling patient: Coding Level of Care Code OFFICE CONSULT LVL 5, 55 MIN Diagnoses Hypercalcemia E83.52 Acute kidney injury superimposed on CKD N17.9; N18.9 Anemia D64.9
[2022-11-03] MEDS ORDERED: LANTUS PER UNIT CHARGE SQ SCH ×2 (08:50→21:00)
[2022-11-03] MEDS ORDERED: PHARMACY GLYCEMIC MGMT CONSULT PRN (09:04)
[2022-11-03] MEDS: PANTOprazole 40 MG TAB PO SCH (09:20)
[2022-11-03] MEDS: SODIUM CHLORIDE 0.9% 1000ML 1,000 ML IV SCH ×2 (09:30→19:33)
[2022-11-03] MEDS ORDERED: INSULIN ASPART PER UNIT SC ONE ×3 (09:45→13:00)
[2022-11-03] MEDS: predniSONE 20 MG TAB PO SCH (09:53)
[2022-11-03] MEDS: allopurinoL 100 MG TAB PO SCH (09:53)
[2022-11-03] MEDS: FUROSEMIDE 20 MG TAB PO SCH ×2 (09:53→20:58)
[2022-11-03] MEDS: VENLAFAXINE HCL XR 75 MG CAPXR PO SCH (09:53)
[2022-11-03 10:21] LABS: BUN Creatinine Ratio 18.4 (10-20); Calcium 11.4 mg/dl (8.5-10.1); Est GFR (African American) 13.3 ml/min; Est GFR (Non-African American) 11.4 ml/min; Potassium 4.9 mmol/L (3.5-5.1)
[2022-11-03] MEDS: IRON SUCROSE 200 MG in 0.9 % SODIUM CHLORIDE 100 ML IV SCH (12:17)
--- NOTE | 2022-11-03 13:06 | Pharmacy Report ---
Pharmacy Glycemic Short Note 2 - Date of Service November 03, 2022 - Glycemic Short BSG Results (Last 24 hours): 11/02/22 11/02/22 11/02/22 13:45 18:03 19:09 Glucose 211 H Cancelled POC Glucose 171 H 11/02/22 11/02/22 11/02/22 20:01 20:13 21:02 Glucose 161 H POC Glucose 180 H 218 H 11/02/22 11/02/22 11/03/22 22:40 23:20 01:37 Glucose 291 H POC Glucose 339 H* 338 H* 11/03/22 11/03/22 11/03/22 01:39 02:27 05:05 Glucose 289 H POC Glucose 336 H* 255 H 11/03/22 11/03/22 11/03/22 07:40 07:43 09:39 Glucose 183 H 234 H POC Glucose 214 H 11/03/22 11/03/22 09:42 11:37 Glucose POC Glucose 265 H 272 H OUTPATIENT ANTIDIABETIC REGIMEN: * Lantus 22-25 units SQ BID * Novolog Sliding Scale: 1 unit per 2 grams of carbohydrate; Correction factor 1 unit per 18mg/dL over goal. ASSESSMENT: * Pauline is a 72 year old female patient with type 2 diabetes who presents to [facility] for further evaluation following outpatient labs concerning for JEFFREY. * Pharmacy was consulted to manage the glycemic control of this patient today, 11/03/22. Prior to consultation, the patient experienced several elevated blood glucose values. * Upon consultation, the patient was given a correctional dose of Novolog because they had breakfast ~1 hour prior. At lunchtime, Novolog parameters were initially dosed loosely to account for the correctional insulin that had not yet reached pharmacokinetic peak. * The patient's daughter had voiced concerns to nursing that the ordered lunchtime Novolog parameters would be insufficient based on the patient's outpatient regimen which they had followed for 16 years. * In our conversation with the patient and her daughter who helps manage her insulin, it was determined that the patient takes 1 unit of insulin per every 2 grams of carbohydrate, and not 1 gram per 50 units of carbs as documented on the med rec. Will tighten Novolog parameters to more accurately replicate what is routinely used outpatient. * PT daughter stated the patient's goal is no less than 150 mg/dL. Lantus 20 units BID confirmed as correct dose basal dose; 1 unit per 18mg/dL over goal confirmed as correctional Novolog parameter. * Patient was started on prednisone 40mg PO daily. The patient's daughter did mention that prednisone has historically had an observed paradoxical effect on blood glucose, causing lower BSG values than anticipated. PLAN FOR INPATIENT GLYCEMIC CONTROL: * Hold outpatient oral diabetes medications * Basal insulin * Lantus 20 units SQ BID * Bolus insulin * NovoLog per scale ACHS or Q6hrs while NPO * Goal Range: Low 120 mg/dL - High 160 mg/dL * Correction Factor: 20 mg/dL/unit * Nutritional / Prandial insulin per carb ratio of 5 unit per grams CHO con sumed
[2022-11-03 16:02] LABS: Calcium 11.4 mg/dl (8.5-10.1); Potassium 4.8 mmol/L (3.5-5.1)
[2022-11-03 16:07] LABS: BUN Creatinine Ratio 19.9 (10-20); Creatinine Clr Calc Pharmacy 15.5 ml/min; Est GFR (African American) 13.8 ml/min; Est GFR (Non-African American) 11.9 ml/min
[2022-11-03] MEDS: LANTUS PER UNIT CHARGE SQ SCH (22:38)
[2022-11-04] MEDS ORDERED: INSULIN ASPART PER UNIT SC ONE (02:00)
[2022-11-04] MEDS: HEPARIN SOD 5,000 UNIT/0.5 ML VIAL SQ SCH (04:13)
[2022-11-04] MEDS: SODIUM CHLORIDE 0.9% 1000ML 1,000 ML IV SCH (05:38)
[2022-11-04 07:06] LABS: Hematocrit (blood only) 23.3 % (37.0-47.0); Hemoglobin 7.6 g/dl (12.0-16.0); Mean Corpuscular Hgb Conc 32.6 g/dL (32.0-36.0); Mean Corpuscular Volume 101.3 fL (80.0-100.0); Mean Platelet Volume 10.4 fL (9.4-12.4); Platelet Count 232 K/uL (130-400); RDW Standard Deviation 51.6 fL (36.4-46.3); White Blood Count 10.29 K/ul (4.8-10.8)
[2022-11-04] MEDS: PANTOprazole 40 MG TAB PO SCH ×2 (08:05→08:20)
[2022-11-04 08:06] LABS: BUN Creatinine Ratio 20.9 (10-20); Calcium 10.9 mg/dl (8.5-10.1); Creatinine Clr Calc Pharmacy 15.8 ml/min; Est GFR (African American) 14.1 ml/min; Est GFR (Non-African American) 12.2 ml/min; Magnesium 2.3 mg/dl (1.7-2.4); Phosphorus 5.2 mg/dl (2.5-4.9); Potassium 4.6 mmol/L (3.5-5.1)
[2022-11-04] MEDS: allopurinoL 100 MG TAB PO SCH (08:06)
[2022-11-04] MEDS: VENLAFAXINE HCL XR 75 MG CAPXR PO SCH (08:06)
[2022-11-04] MEDS: predniSONE 20 MG TAB PO SCH (08:06)
[2022-11-04] MEDS: FUROSEMIDE 20 MG TAB PO SCH (08:06)
[2022-11-04] MEDS: IRON SUCROSE 200 MG in 0.9 % SODIUM CHLORIDE 100 ML IV SCH (08:24)
[2022-11-04] MEDS: INSULIN ASPART PER UNIT SC SCH ×2 (08:26→12:21)
[2022-11-04] MEDS: LANTUS PER UNIT CHARGE SQ SCH (08:27)
[2022-11-04] MEDS ORDERED: EPOETIN ALFA 10,000 UNITS/ML VIAL SQ ONE (08:39)
--- NOTE | 2022-11-04 08:44 | Nephrology Progress Note ---
Date of Service November 04, 2022 Assessment & Plan (1) Hypercalcemia: Plan: * Hypercalcemia possibly related to breast CA or underlying granulomatous disease * Serum Ca has improved from 13.1 to 10.9 following IV hydration and steroid therapy * Continue Prednisone 40 mg po daily * Monitor PRP * Patient wishes to be discharged to home today. She will need noncontrast chest & abdominal CT to assess for granulomatous disease as outpatient * Patient has Nephrology follow up appointment scheduled w/ Dr. Varner in ~ 2 weeks (2) Acute kidney injury superimposed on CKD: Plan: * Baseline Cr 3.5 * h/o JEFFREY on CKD requiring HD during prior hospitalizations * Briefly discussed advanced CKD w/ patient. 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 Beyer was evaluated in her hospital room this morning. She reports that she has tolerated IV hydration without dyspnea, progressive LE swelling or angina. She is tolerating oral steroid therapy without GI upset. Mrs. Beyer is anxious to return home Review of Systems Constitutional: no fever Eyes: no problem reported Ear, Nose, Mouth, Throat: no problem reported Respiratory: no problem reported Cardiovascular: no problem reported Gastrointestinal: no abdominal pain, no vomiting and no diarrhea/loose stools Genitourinary: no dysuria Neurologic: no localized weakness Physical Exam Constitutional: + obese; not in distress Eyes: PERRL, conjunctivae normal, anicteric sclerae ENMT: external ear and nose normal, oropharynx normal Neck: trachea midline, no thyromegaly Respiratory: normal respiratory effort, lungs clear to auscultation Cardiovascular: Rate/Rhythm: regular rate and regular rhythm Extremities: + edema (1+ pretibial) Gastrointestinal (Abdomen): Inspection/Auscultation: abdomen normal to inspection and normal bowel sounds Percussion/Palpation: abdomen nontender and no guarding Neurologic: Speech / Cognition: normal speech and normal cognition Results & Data ([facility]) Vital Signs (Past 12 Hours) Vital Signs Temp Pulse Pulse Resp BP Pulse Ox O2 Del Method 11/04/22 07:43 36.5 C 48 L 18 154/72 H Room Air 11/04/22 03:00 36.4 C L 49 L 20 138/73 97 Room Air 11/03/22 23:33 47 L 11/03/22 23:00 36.3 C L 56 L 18 153/71 H 99 Room Air Laboratory Results Laboratory Tests 11/03/22 11/04/22 11/04/22 07:43 06:48 06:48 WBC 10.29 Hgb 7.6 L Hct 23.3 L Plt Count 232 Sodium 130 L 132 L Potassium 4.6 Chloride 103 Carbon Dioxide 20 L BUN 73 H Creatinine 4.11 H 3.50 H Calcium 12.4 H* 10.9 H PG Care Time/CCT Total # of Minutes Spent Total Time Spent with Patient: Total time spent is greater than 50% in coordination of care (as documented) at patient's floor/unit and/or counseling patient: Coding Level of Care Code 92022 SUB INP/OBS CARE 3/50MIN Diagnoses Hypercalcemia E83.52 Acute kidney injury superimposed on CKD N17.9; N18.9 Anemia D64.9
--- NOTE | 2022-11-04 12:19 | Discharge Summary ---
Date of Service November 04, 2022 Admission HPI Per Admitting Provider Pauline is a 72 year old female with a PMH significant for Breast cancer with metastases to the bone, [place] [facility] [place] , anemia, CKD stage 4, hypercalcemia, DM II, HFpEF, MCKENZIE, GERD, HTN, dyslipidemia, and Mobitz type 1 AV block who presented to the [facility] ED on 11/02/22 at the recommendation of her PCP. Per chart review, the patient has a known history of CKD and hypercalcemia She was last seen in the Nephrology clinic on 08/16/[address] Varner. Per her clinic note, they had been using Prolia injections for her Hypercalcemia with minimal improvement. They did not have an exact etiology for her hypercalcemia at that time but discussed the possibility of hold Ibrance if it continued. She has been getting weekly labs to monitor her anemia, renal function, and electrolytes. Her calcium was noted to be 13.1 earlier today with and increase in cr from 3.18 on 10/15/22 to 4.46 earlier today. In the ED today the patient was found to be afebrile, hemodynamically stable, and stable on RA. Repeat labs in the ED were significant for a Hgb of 8.2 (down from 9.1 on 10/15/22), stable platelets, MCV of 103, cr of 4.24, calcium of 12.3, corrected sodium of 133, glucose of 211, potassium of 5.2, phos of 5.0, alk phos of 105, otherwise stable LFTs, and covid negative. Prior to admission the patient was given 1L NSS. At the time of the exam the patient was resting comfortably in bed with her Daughter sitting bedside, history was obtained from them both. They state that the patient was recently taken off of her Ibrance and started on an Estrogen receptor he (they are unsure of the name at this time) and she has completed two treatments down in [place] so far. They were told yesterday about the patient's hypercalcemia and renal function but she did not want to come to the ED at that time as she felt clinically well. Her daughter was able to talk her into coming into the ED today due to concerns that her labs were getting worse. The patient states that she currently feels well. She denies recent fevers, chills, chest pain, SOB, abdominal pain, nausea, vomiting, diarrhea, dysuria, hematuria, confusion, and recent falls. She confirms that she is still making lots of urine today and just had a normal bowel movement prior to my exam. I explained to the patient that we need to monitor and treat her current JEFFREY on CKD and her electrolyte abnormalities and she was in agreement with staying. I discussed her wishes regarding possible dialysis if her renal function were to get worse, at this time she would be in agreement with dialysis if it were emergent. We discussed code status and she wishes to be a Full Code. Her Daughter (Adele Matute [phone]) would make decisions for her if she could not make them herself. Per chart review, the patient has been followed outpatient by Dr. Varner of [facility] for her CKD, electrolyte abnormalities, and chronic anemia. She recommedned stopping the Ibrance previously due to concerns that it was the cause of the patient's hypercalcemia and was considering starting the patient on a trial or steroids due to concerns for possible granulomatous disease such as Sarcoid. Please refer to Dr. Chambers's attetsation for any changes to the treatment plan Admission Exam Per Admitting Provider Physical Exam: General:In no acute distress, stated age, chronically ill-appearing but non- toxic appearing HEENT:Normocephalic, atraumatic, no scleral icterus, patient is blind in the right eye put the left pupil is round and reactive to light, moist mucus membranes, trachea midline, no thyromegaly Chest/Pulm:No respiratory distress, symmetrical chest expansion, clear breath sounds throughout Cardiac:RRR, no murmurs noted Abdomen:Negative for ascites and bruising, normoactive bowel sounds, soft, non-tender to palpation throughout Musculoskeletal:Symmetrical and without signs of acute trauma, upper and lower extremities with full ROM, no atrophy, spasticity, or flaccidity Extremities:Radial, dorsalis pedis, and posterior tibial pulses are intact and symmetrical, no edema noted in the BL LE's Skin:Warm, dry, no rashes , lesions, or scars noted Neuro:Alert and oriented to person, place, month, year, and president, no focal defects,no tremors noted Psych:No acute distress, calm and cooperative during the exam Principal Diagnosis JEFFREY superimposed on CKD w/ related metabolic derangements Discharge Exam Constitutional NAD. Vitals WNL. Eyes Anicteric sclerae. Respiratory CTA bilaterally. No rhonchi, wheezing, or crackles. Non labored breathing. Cardiovascular RRR. No murmur noted. Non pitting edema of bilateral LE L>R. Psychiatric Alert. Mood and affect congruent. Discharge Data Allergies Allergy/AdvReac Type Severity Reaction Status Date / Time amoxicillin Allergy Severe LIPS Verified 11/02/22 16:10 SWELLED, "RED ALL OVER" doxycycline Allergy Severe LIPS Verified 11/02/22 16:10 SWELLED, "RED ALL OVER". cephalexin [From Keflex] Allergy Intermediate skin Verified 11/02/22 16:10 starts to peel off sulfamethoxazole Allergy Unknown Unknown Verified 11/02/22 16:10 [From Bactrim] trimethoprim [From Bactrim] Allergy Unknown Unknown Verified 11/02/22 16:10 atorvastatin AdvReac Intermediate Myalgia Verified 11/02/22 16:10 Consultations 11/02/22 15:37 ED Decision to Admit Stat 11/02/22 16:35 Consult Nephrology Routine Ordered Studies Chest X-Ray 11/02/22 16:45 XR chest 1V portable CLINICAL HISTORY: heart failure COMPARISON STUDY: Chest radiograph May 21, 2022. FINDINGS: Proximal right humeral internal fixation is partially imaged. There is no pneumothorax. Suspected trace bilateral pleural effusions are present. There is mild pulmonary edema. This is decreased when compared to exam of May 21, 2022. Cardiomegaly is unchanged. There is no consolidation to suggest pneumonia. IMPRESSION: Cardiomegaly with mild interstitial pulmonary edema and suspected trace bilateral pleural effusions. ACT 112: Negative or not required by law. Electronically signed by: Bob Alejandre M.D. 11/02/2022 5:05 PM Hospital Course (1) Acute kidney injury superimposed on CKD: (2) Hypercalcemia: (3) Hyperkalemia: (4) Hyperphosphatemia: (5) Type 2 diabetes mellitus: (6) (HFpEF) heart failure with preserved ejection fraction: (7) Anemia: (8) GERD (gastroesophageal reflux disease): (9) Breast cancer: Plan Pt is 72 yo female with PMH of stage 5 CKD, CHF, MCKENZIE, GERD, HTN, DM, and dyslipidemia presenting to the hospital from her PCP office d/t hypercalcemia and low Hgb. Acute kidney injury superimposed on CKD - hx of CKD IV; follows w/ Dr. Varner - original labs showed Cr of 4.46 w/ baseline around 3.0 - likely multifactorial including dehydration and current chemotherapy for breast cancer - pt w/ several metabolic derangements; hyperkalemia, hypercalcemia, hyponatremia, and hyperphosphatemia - s/p 40 mg IV lasix for her hyperkalemia and 1 L NS upon admission - continued hydration with IVF w/ NS at 100 mL/hr in addition to 20 mg oral lasix - upon discharge, pt encouraged to drink copious amounts of water and return to her home lasix dosing (20 mg BID) - continue to hold spironolactone upon discharge; pt to speak with facilitator concerning restarting Hypercalcemia - 13 on admission. Improved to 10.9 with IV hydration on discharge Concern of granulomatous disease - addition of 40 mg prednisone daily for possible granulomatous disease; - She will need noncontrast chest & abdominal CT to assess for granulomatous disease as outpatient Hyperkalemia, hyperphosphatemia - as above - upon discharge, Na 132, K 4.6, Mg 2.3 and Phos 5.2 - pt to repeat BMP as outpatient on Wednesday 11/08 Chronic Heart failure with preserved ejection fraction - Hypovolemia on admission but received lasix to manage fluid balance with IVF - To continue home dose of lasix 20mgs bid HTN (hypertension) - pt uses spironolactone as outpatient - Holding spironolactone on discharge due to hyperkalemia Multifactorial anemia - Hgb stable w/ elevated MCV while hospitalized; 7.6 upon discharge - folate normal, B12 normal, vitamin D low - iron studies low normal - pt receives procrit injections outpatient, significant other states she still has one in the refrigerator at home - pt received 2 iron infusions - recheck H&H as outpatient on Wednesday 11/08 Breast cancer in active tx - followed in [place] by [facility] - was taken off Ibrance and start on an estrogen receptor he recently (beginning of the year) - pt will f/u at the end of October Morbid obesity with BMI 46.9 - Outpatient weight management discussion - consider GLP1 agonists Fluids: NS at 100 mL/hr while hospitalized; pt to push fluids at home Diet: dialysis renal DVT ppx while hospitalized - SCDs, heparin 5000 units TID (although pt refused) Code: full Dispo: home w/ close outpatient follow up from all providers involved in her care Total Time Total Time Spent Total Time Spent (In Minutes): as per attending attestation Discharge Plan Discharge Items Patient Disposition: Home - Self-Care Reason For Visit: ABNORMAL OUTPATIENT LABS Discharge Diagnosis: multiple metabolic derangements Activity: Resume your previous activity Non-emergency contact: Primary Care Provider, Key Filer and Oncologist Call non-emergency contact if: you have any medication questions Follow-up/Referrals: Corinne Varner MD [Physician] - (f/u already scheduled per pt) Pat Alejandre MD [Primary Care Provider] - 11/12/22 2:00 pm Diet: Dialysis Renal Ambulatory Orders: Basic Metabolic Panel (Routine) Timeframe: 20221108 Location: Determined by Patient Ordered By: Fabiola Bentley Hemoglobin and Hematocrit (Routine) Timeframe: 20221108 Location: Determined by Patient Ordered By: Fabiola Bentley Addtl Attending Provider Instructions: You were admitted to the hospital for abnormal lab values. You were found to have elevated calcium, phosphorous, potassium, and creatinine. Your hemoglobin (blood count level) was also lower than normal for you. You were treated with IV fluids in addition to diuretics and iron infusions. Upon discharge, your electrolyte levels have come to within a more acceptable range. With your kidney injury and electrolyte imbalances, you need to ensure that you are drinking copious amounts of water at home. A lab order to check your electrolytes and blood count levels was sent for Tuesday11/08/2022. You should receive this lab work and check with your PCP or facilitator concerning the results. A discharge summary will be sent to your primary care physician to ensure continuity of care. Please bring this discharge summary with you to your next office appointment so that your provider can review it at that time. Medications: Your medication list has been reviewed and reconciled upon discharge to ensure accuracy and continuity of care. An updated list of all your medications is included with your hospital discharge paperwork. Please review this list closely and make note of any changes to your medications. - Prednisone is recommended by nephrology for possible granulomatous disease. You should take 40 mg prednisone daily. In order to further delineate this diagnosis, outpatient CT scans of your chest and abdomen are recommended. - Your spironolactone was held during your hospitalization due to your kidney injury and elevated potassium. Continue to hold this medication until you speak with your facilitator. Follow up appointments: - Make a follow up appointment with your PCP within the next week. It is very important that you follow up with them shortly after discharge from the hospital. - You should also follow up closely with your facilitator and oncologist. - Keep all of your follow up appointments as already scheduled. If you cannot make an appointment, notify your provider. CONTACT YOUR PRIMARY CARE PROVIDER if you experience any of the following: - Difficulty following your treatment plan - Difficulty taking any of your medications CALL 911 OR GO TO THE EMERGENCY DEPARTMENT if you experience any of the following: - Sudden, severe abdominal pain or nausea/vomiting - Severe chest pain or chest pain that radiates to your jaw or arm - Sudden, severe shortness of breath or difficulty breathing Pending Studies at Discharge: No Stand-Alone Forms: [facility], Smoking Cessation Medications and DC Order Prescriptions: New prednisone 20 mg Tablet 40 mg PO DAILY 14 Days Qty: 28 0RF Continued allopurinol 100 mg tablet 50 mg PO DAILY Qty: 45 3RF venlafaxine 75 mg capsule,extended release 24hr 75 mg PO DAILY Qty: 90 3RF omega-3 fatty acids 1,000 mg capsule 2,000 mg PO BID Qty: 360 3RF (DME) pen needle, diabetic [UltiCare Pen Needle] 32 gauge x 5/32" needle See Rx Instructions .ROUTE .COMPLEX Qty: 600 5RF Dose Instruction: USE 10 TIMES DAILY DIRECTED Rx Instructions: USE 10 TIMES DAILY DX E11.9 DIRECTED Prolia 60 mg/mL syringe 60 mg subcut WK Qty: 1 0RF Rx Instructions: TAKES ON TUESDAYS. 60 mg subcutaneously weekly as needed for hypercalcemia; promethazine 25 mg tablet 25 mg PO Q6H PRN (Reason: nausea) Qty: 30 5RF tramadol 50 mg tablet 50 mg PO Q6 PRN (Reason: Pain) Procrit 40,000 unit/mL solution 40,000 unit subcut DIRECTED Rx Instructions: Inject 40,000 units SubQ once a month and hold if Hemoglobin is greater than or equal to 11. clotrimazole-betamethasone 1-0.05 % cream 1 applic topical BID PRN (Reason: Skin Irritation) insulin aspart U-100 [Novolog FlexPen U-100 Insulin] 100 unit/mL (3 mL) insulin pen 0 sliding scale dose SQ DIRECTED MDD 225 units Rx Instructions: Per daughter carb ratio 1:2; Correction Factor 1:18 for BG > 200 insulin glargine [Lantus Solostar U-100 Insulin] 100 unit/mL (3 mL) insulin pen 22 unit SQ BID Changed furosemide 40 mg tablet 20 mg PO BID Qty: 28 0RF Discontinued spironolactone 25 mg tablet 12.5 mg PO DAILY Discharge Orders: Discharge Order (Routine); Ordered 11/04/22 Ordered By: Fabiola Bentley Admission Data Admit Date/Time: 11/02/22 16:06 Attending Provider: Sallie Ortiz Admit Provider: Dez Chambers Primary Care Provider: Pat Alejandre Other Providers: Dez Chambers ; Jeromy Dominguez Other Interventions: Discharge Summary Assessment (RN) Last Done: 11/04/22 12:33 Supervising Physician Co-Signing Physician Notes Resident Physician Supervision Note: I independently interviewed and examined the patient and verified the barrett history and physical, reviewed labs and image studies and agree with resident findings and care plan. Resident Activity Tracking Resident Involvement: Resident Care Provided Care Provided: Adult Hospital Medicine
== END 2022-11-04 13:53 | disposition home or self-care (01) | DRG 683 ==
LOC: ED 13:21 → SUATTDRO 16:06 → EDINP 16:06 → 2N 18:23

== ENCOUNTER 2022-11-04 18:37 | Inpatient (IN) ==
[2022-11-04] MEDS ORDERED: ASPIRIN CHEW 324 MG PO STA (18:58)
[2022-11-04] MEDS ORDERED: FUROSEMIDE 40 MG/4 ML VIAL IV ONE (18:58)
[2022-11-04] MEDS ORDERED: NITROGLYCERIN SL 0.4 MG/TAB TAB SL STA (18:58)
--- NOTE | 2022-11-04 19:07 | Emergency Department Note ---
History of Present Illness General Chief complaint: Chest Pain Stated complaint: CHEST PAIN, TROUBLE BREATHING Time Seen by Provider: 11/04/22 18:43 History of Present Illness 72-year-old female presents emergency department reportedly was discharged at 1 PM today from our facility after being treated for CKD and hypercalcemia. Patient states substernal chest tightness and pressure as well as increased shortness of breath over the past few hours. Patient denies nausea vomiting diaphoresis. Patient states that she is having a hard time trying to breathe. Family states that they were discharged 6 hours ago and returned now for increased shortness of breath. Home Medications Medication Instructions Recorded Confirmed Type promethazine 25 mg tablet 25 mg PO Q6H PRN nausea #30 tabs 08/17/19 11/02/22 Rx allopurinol 100 mg tablet 50 mg PO DAILY #45 tabs 11/17/21 11/02/22 Rx venlafaxine 75 mg capsule,extended 75 mg PO DAILY #90 caps 04/07/22 11/02/22 Rx release 24 hr tramadol 50 mg tablet 50 mg PO Q6 PRN Pain 05/19/22 11/02/22 History omega-3 fatty acids 1,000 mg 2,000 mg PO BID #360 caps 07/19/22 11/02/22 Rx capsule pen needle, diabetic 32 gauge x ##600 07/23/22 09/15/22 Rx " (UltiCare Pen Needle) clotrimazole-betamethasone 1 1 applic topical BID PRN Skin 11/02/22 11/02/22 History %-0.05 % topical cream Irritation denosumab 60 mg/mL subcutaneous 60 mg subcut WK #1 mL 11/02/22 Rx syringe (Prolia) epoetin kacey 40,000 unit/mL 40,000 unit subcut DIRECTED 11/02/22 11/02/22 H istory injection solution (Procrit) insulin aspart U-100 100 unit/mL 0 sliding scale dose subcut 11/02/22 11/02/22 History (3 mL) subcutaneous pen (Novolog DIRECTED FlexPen U-100 Insulin aspart) insulin glargine 100 unit/mL (3 22 unit subcut BID 11/02/22 11/04/22 History mL) subcutaneous pen (Lantus Solostar U-100 Insulin) furosemide 40 mg tablet 20 mg PO BID #28 tabs 11/04/22 11/02/22 Rx prednisone 20 mg tablet 40 mg PO DAILY 14 days #28 tabs 11/04/22 Rx Allergies Allergy/AdvReac Type Severity Reaction Status Date / Time amoxicillin Allergy Severe LIPS Verified 11/02/22 16:10 SWELLED, "RED ALL OVER" doxycycline Allergy Severe LIPS Verified 11/02/22 16:10 SWELLED, "RED ALL OVER". cephalexin [From Keflex] Allergy Intermediate skin Verified 11/02/22 16:10 starts to peel off sulfamethoxazole Allergy Unknown Unknown Verified 11/02/22 16:10 [From Bactrim] trimethoprim [From Bactrim] Allergy Unknown Unknown Verified 11/02/22 16:10 atorvastatin AdvReac Intermediate Myalgia Verified 11/02/22 16:10 Past Med/Surg History Medical History (HFpEF) heart failure with preserved ejection fraction JEFFREY (acute kidney injury) post-operative 2017 - short term dialysis Anemia Breast cancer diagnosed 2020 Candidal intertrigo Chronic kidney disease, stage 4 (severe) Chronic kidney disease, stage III (moderate) Chronic stasis dermatitis Crystal arthropathy Dyslipidemia GERD (gastroesophageal reflux disease) HTN (hypertension) Hyperuricemia Iron deficiency anemia Mobitz type 1 second degree AV block MCKENZIE (nonalcoholic steatohepatitis) Seborrheic dermatitis Statin myopathy Type 2 diabetes mellitus Vitamin D deficiency Surgical History History of appendectomy History of tonsillectomy and adenoidectomy Humerus fracture surgical repair Hx of cholecystectomy Family History Father Depression Diabetes Mother Hypertension Kidney stones Gallbladder disease Denies family history of Ovarian cancer Prostate cancer Myocardial infarction Breast cancer Colorectal cancer Social History Smoking Status: Never smoker Second Hand Exposure: No; Hx Alcohol Use: No Hx Substance Use: No Preferred Language: Malay Communication Ability: Effective Visual Impairment: Limited Hearing Ability: Normal Tallow Refiner Required: No Beliefs That Will Affect Care: None marital status: Current Living Situation: Spouse and Family 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 Feels Safe at Home: Yes Childhood Exposure to Second-Hand Smoke: No Dental Care, Regularly: Yes Physical Activity Frequency: Does not Exercise Seatbelt Use: never Sunscreen Use: No Assistive Devices: Cane, Glasses, Walker and Wheelchair Review of Systems A total of 10 systems reviewed and were otherwise negative Constitutional: no fever Respiratory: + dyspnea and + dyspnea on exertion Cardiovascular: + chest pain Physical Exam Vital Signs Vital Signs - 24 hr 11/04/22 18:39 11/04/22 19:15 11/04/22 19:15 Temperature 36.4 C L Temperature Source Temporal Artery Scan Pulse Rate 103 H Pulse Rate [Apical] 85 Respiratory Rate 20 26 H Respiratory Effort / Characteristics Non-Labored Spontaneous Labored Tripoding Respiratory Depth Normal Blood Pressure 175/89 H Blood Pressure [Left Arm] 161/74 H Blood Pressure Mean 117 Blood Pressure Mean [Left Arm] 103 Blood Pressure Position Sitting Pulse Oximetry 92 88 L 94 Oxygen Delivery Method Room Air Room Air Nasal Cannula Oxygen Flow Rate 2 Sepsis Recent Fever Within 48 Hours Yes Sepsis New/Unexplained Change in Mental Status No Sepsis Action Taken by Nursing No Action Required Oxygen Flow Rate - Titration 2 Pulse Oximetry Post Tiitration 94 11/04/22 19:18 11/04/22 18:37 Temperature Temperature Source Pulse Rate Pulse Rate [Apical] Respiratory Rate Respiratory Effort / Characteristics Spontaneous Respiratory Depth Blood Pressure Blood Pressure [Left Arm] Blood Pressure Mean Blood Pressure Mean [Left Arm] Blood Pressure Position Pulse Oximetry 94 Oxygen Delivery Method Nasal Cannula Nasal Cannula Oxygen Flow Rate 2 2 Sepsis Recent Fever Within 48 Hours Sepsis New/Unexplained Change in Mental Status Sepsis Action Taken by Nursing Oxygen Flow Rate - Titration Pulse Oximetry Post Tiitration GENERAL: Patient is awake alert in moderate respiratory distress EYES: The conjunctivae are clear. The pupils are round and reactive. EARS, NOSE, MOUTH AND THROAT: The nose is without any evidence of any deformity. Mucous membranes are moist. Tongue is midline. NECK: The neck is nontender and supple. RESPIRATORY: Patient is speaking in full sentences however has increased work of breathing, has crackles bilaterally CARDIOVASCULAR: Regular rate and rhythm noted there no murmurs rubs or gallops normal S1 normal S2. GASTROINTESTINAL: The abdomen is soft. Abdomen is nontender. Patient is morbidly obese PELVIS: The Pelvis is stable. No tenderness to palpation is noted. Patient is sitting in a wheelchair BACK: No midline tenderness or or step-off noted range of motion in flexion extension as well as rotation no signs of muscle spasm noted MUSCULOSKELETAL/EXTREMITIES: There is no evidence of gross deformity full range of motion is noted in the hips and shoulders. Patient has bilateral lower ext remity pitting edema SKIN: There is no obvious evidence of any rash. There are no petechiae, pallor or cyanosis noted. NEUROLOGIC: Patient is awake alert and oriented x3 strength is symmetric Course Reevaluation(s) Reevaluation #1: Patient has diuresed some she is on 2 L of oxygen pulse ox is 94% she is mentating and in no significant respiratory distress at this time.; She was given Lasix and fentanyl, [facility] at bedside Time: 20:42 Consultations Consultation #1: [facility] and has been [facility] for admission for CHF Time: 20:42 Administered Medications Discontinued Medications Aspirin (Aspirin Chew 324 Mg) 324 mg PO NOW STA Stop: 11/04/22 18:59 Last Admin: 11/04/22 19:07 Dose: 324 mg Documented By: ML Fentanyl Citrate (Fentanyl Citrate 100 Mcg/2 Ml Vial) 25 mcg IV NOW STA Stop: 11/04/22 20:23 Last Admin: 11/04/22 20:32 Dose: 25 mcg Documented By: AMARIS Furosemide (Furosemide 40 Mg/4 Ml Vial) 40 mg IV ONE ONE Stop: 11/04/22 18:59 Last Admin: 11/04/22 19:08 Dose: 40 mg Documented By: ML Nitroglycerin (Nitroglycerin Sl 0.4 Mg/Tab Tab) 0.4 mg SL NOW STA Stop: 11/04/22 18:59 Last Admin: 11/04/22 19:07 Dose: 0.4 mg Documented By: ML Critical Care Time Critical Care Time: Yes Total Critical Care Time: 45 I have personally spent greater than 45 minutes of critical care time in the direct management of this patient. This includes bedside care, interpretation of diagnostic studies, and testing, discussion with consultants, patient, and family members, and other required patient management activities. These minutes are in excess of all separately billable procedures. Medical Decision Making Medical Records Attestation: I reviewed the patient's medical records. Home Medications Current Medication List: was personally reviewed by me Laboratory Data Attestation: I reviewed the patient's lab results. Patient has leukocytosis anemia CKD and hyperglycemia as interpreted by me 11/04/22 19:19 11/04/22 19:19 Lab Results 11/04/22 11/04/22 11/04/22 Range/Units 19:19 19:19 19:19 WBC 17.01 H (4.8-10.8) K/ul RBC 2.71 L (4.20-5.40) M/uL Hgb 9.0 L (12.0-16.0) g/dl Hct 27.4 L (37.0-47.0) % MCV 101.1 H (80.0-100.0) fL MCH 33.2 (25.0-34.0) pg MCHC 32.8 (32.0-36.0) g/dL RDW Std Deviation 54.0 H (36.4-46.3) fL RDW Coeff of Amparo 14.5 (11.5-14.5) % Plt Count 357 D (130-400) K/uL MPV 10.6 (9.4-12.4) fL Immature Gran % (Auto) 2.1 % Neut % (Auto) 86.8 % Lymph % (Auto) 8.7 % [place] % (Auto) 2.2 % Eos % (Auto) 0.1 % Baso % (Auto) 0.1 % Neut # (Auto) 14.76 H (1.40-6.50) K/uL Lymph # (Auto) 1.48 (1.2-3.4) K/uL [place] # (Auto) 0.38 (0.11-0.59) K/uL Eos # (Auto) 0.01 (0-0.50) K/uL Baso # (Auto) 0.02 (0-0.2) K/uL Immature Gran # (Auto) 0.36 H (0.01-0.20) K/uL Absolute Nucleated RBC 0.02 (0-0.12) K/uL Nucleated RBC % (auto) 0.1 % PT 12.4 H (9.0-12.0) Seconds INR 1.2 H (0.9-1.1) APTT 25.6 (21.0-31.0) Seconds PTT Ratio 0.9 Sodium 130 L (136-145) mmol/L Potassium 4.7 (3.5-5.1) mmol/L Chloride 100 (98-107) mmol/L Carbon Dioxide 18 L (21-32) mmol/L Anion Gap 12 H (3-11) BUN 79 H (6-23) mg/dl Creatinine 3.31 H (0.6-1.2) mg/dl Est Cr Clr Drug Dosing Not Reportable Est GFR ( Amer) 15.1 ml/min Est GFR (Non-Af Amer) 13.0 ml/min BUN/Creatinine Ratio 23.9 H (10-20) Glucose 263 H (70-99(Fasting)) mg/dl Calcium 11.4 H (8.5-10.1) mg/dl Total Bilirubin 0.4 (0.2-1.0) mg/dl AST 14 (13-39) U/L ALT 14 (7-52) U/L Alkaline Phosphatase 113 H (34-104) U/L Troponin I High Sens 89.6 H* (0-14) pg/ml B-Natriuretic Peptide (0-100) pg/ml Total Protein 8.8 H (6.0-8.3) gm/dl Albumin 4.0 (3.4-5.0) gm/dl Globulin 4.8 H (2.5-4.0) gm/dl Albumin/Globulin Ratio 0.8 L (0.9-2) Lipase 27 (11-82) U/L SARS-CoV-2, RNA, NAAT (NEGATIVE) 11/04/22 11/04/22 Range/Units 19:19 19:32 WBC (4.8-10.8) K/ul RBC (4.20-5.40) M/uL Hgb (12.0-16.0) g/dl Hct (37.0-47.0) % MCV (80.0-100.0) fL MCH (25.0-34.0) pg MCHC (32.0-36.0) g/dL RDW Std Deviation (36.4-46.3) fL RDW Coeff of Amparo (11.5-14.5) % Plt Count (130-400) K/uL MPV (9.4-12.4) fL Immature Gran % (Auto) % Neut % (Auto) % Lymph % (Auto) % [place] % (Auto) % Eos % (Auto) % Baso % (Auto) % Neut # (Auto) (1.40-6.50) K/uL Lymph # (Auto) (1.2-3.4) K/uL [place] # (Auto) (0.11-0.59) K/uL Eos # (Auto) (0-0.50) K/uL Baso # (Auto) (0-0.2) K/uL Immature Gran # (Auto) (0.01-0.20) K/uL Absolute Nucleated RBC (0-0.12) K/uL Nucleated RBC % (auto) % PT (9.0-12.0) Seconds INR (0.9-1.1) APTT (21.0-31.0) Seconds PTT Ratio Sodium (136-145) mmol/L Potassium (3.5-5.1) mmol/L Chloride (98-107) mmol/L Carbon Dioxide (21-32) mmol/L Anion Gap (3-11) BUN (6-23) mg/dl Creatinine (0.6-1.2) mg/dl Est Cr Clr Drug Dosing Est GFR ( Amer) ml/min Est GFR (Non-Af Amer) ml/min BUN/Creatinine Ratio (10-20) Glucose (70-99(Fasting)) mg/dl Calcium (8.5-10.1) mg/dl Total Bilirubin (0.2-1.0) mg/dl AST (13-39) U/L ALT (7-52) U/L Alkaline Phosphatase (34-104) U/L Troponin I High Sens (0-14) pg/ml B-Natriuretic Peptide 883 H (0-100) pg/ml Total Protein (6.0-8.3) gm/dl Albumin (3.4-5.0) gm/dl Globulin (2.5-4.0) gm/dl Albumin/Globulin Ratio (0.9-2) Lipase (11-82) U/L SARS-CoV-2, RNA, NAAT NEGATIVE (NEGATIVE) Imaging Data Attestation: I personally reviewed and interpreted this imaging study as follows: My Impression: Chest x-ray interpreted by me pulmonary edema, cardiomegaly ECG Data Attestation: I personally reviewed and interpreted this ECG as follows: Additional Comments: EKG interpreted by me sinus rhythm first-degree AV block rate of 95 nonspecific intraventricular block right axis deviation no obvious ST segment elevation or depression MDM Narrative Medical decision making differential diagnosis includes CHF, pulmonary edema, acute coronary syndrome, acute ME, pneumonia, electrolyte abnormality, renal failure Plan is to check labs, EKG, chest x-ray, treat with aspirin nitro and Lasix External medical records in the patient's discharge summary were reviewed by me Independent history was provided to me by the patient's family at bedside Patient is at risk for significant cardiopulmonary event Patient's heart score is moderate Patient is treated for pulmonary edema was given IV Lasix and IV fentanyl, the case was discussed with the [facility] hospitalist for admission Impression & Plan CHF (congestive heart failure), CKD (chronic kidney disease), stage III, Chest pain Discharge Plan Visit Data Chief Complaint: Chest Pain Stated Complaint: CHEST PAIN, TROUBLE BREATHING ED Provider: Sonny Street Discharge Problem: CHF (congestive heart failure), CKD (chronic kidney disease), stage III, Chest pain Patient Disposition: Admitted As Inpatient Forms Stand Alone Forms: My [facility] Prescriptions Prescriptions: No Action allopurinol 100 mg tablet 50 mg PO DAILY Qty: 45 3RF venlafaxine 75 mg capsule,extended release 24hr 75 mg PO DAILY Qty: 90 3RF omega-3 fatty acids 1,000 mg capsule 2,000 mg PO BID Qty: 360 3RF (DME) pen needle, diabetic [UltiCare Pen Needle] 32 gauge x 5/32" needle See Rx Instructions .ROUTE .COMPLEX Qty: 600 5RF Dose Instruction: USE 10 TIMES DAILY DIRECTED Rx Instructions: USE 10 TIMES DAILY DX E11.9 DIRECTED Prolia 60 mg/mL syringe 60 mg subcut WK Qty: 1 0RF Rx Instructions: TAKES ON TUESDAYS. 60 mg subcutaneously weekly as needed for hypercalcemia; promethazine 25 mg tablet 25 mg PO Q6H PRN (Reason: nausea) Qty: 30 5RF tramadol 50 mg tablet 50 mg PO Q6 PRN (Reason: Pain) Procrit 40,000 unit/mL solution 40,000 unit subcut DIRECTED Rx Instructions: Inject 40,000 units SubQ once a month and hold if Hemoglobin is greater than or equal to 11. clotrimazole-betamethasone 1-0.05 % cream 1 applic topical BID PRN (Reason: Skin Irritation) insulin aspart U-100 [Novolog FlexPen U-100 Insulin] 100 unit/mL (3 mL) insulin pen 0 sliding scale dose SQ DIRECTED MDD 225 units Rx Instructions: Per daughter carb ratio 1:2; Correction Factor 1:18 for BG > 200 insulin glargine [Lantus Solostar U-100 Insulin] 100 unit/mL (3 mL) insulin pen 22 unit SQ BID furosemide 40 mg tablet 20 mg PO BID Qty: 28 0RF prednisone 20 mg Tablet 40 mg PO DAILY 14 Days Qty: 28 0RF Referrals Referrals: Pat Alejandre MD [Primary Care Provider] -
[2022-11-04 19:38] LABS: Basophils # (auto) 0.02 K/uL (0-0.2); Basophils % (auto) 0.1 %; Eosinophils # (auto) 0.01 K/uL (0-0.50); Eosinophils % (auto) 0.1 %; Hematocrit (blood only) 27.4 % (37.0-47.0); Immature Granulocytes # (auto) 0.36 K/uL (0.01-0.20); Immature Granulocytes % (auto) 2.1 %; Lymphocytes # (auto) 1.48 K/uL (1.2-3.4); Lymphocytes % (auto) 8.7 %; Mean Corpuscular Hemoglobin 33.2 pg (25.0-34.0); Mean Corpuscular Hgb Conc 32.8 g/dL (32.0-36.0); Mean Corpuscular Volume 101.1 fL (80.0-100.0); Mean Platelet Volume 10.6 fL (9.4-12.4); Monocytes # (auto) 0.38 K/uL (0.11-0.59); Monocytes % (auto) 2.2 %; Neutrophils # (auto) 14.76 K/uL (1.40-6.50); Neutrophils % (auto) 86.8 %; Nucleated RBC # (auto) 0.02 K/uL (0-0.12); Nucleated RBC % (auto) 0.1 %; Platelet Count 357 K/uL (130-400); RDW Coefficient of Variation 14.5 % (11.5-14.5); Red Blood Count 2.71 M/uL (4.20-5.40); White Blood Count 17.01 K/ul (4.8-10.8)
[2022-11-04 19:51] LABS: Alanine Aminotransferase 14 U/L (7-52); Albumin Globulin Ratio 0.8 (0.9-2); Alkaline Phosphatase 113 U/L (34-104); Anion Gap 12 (3-11); Aspartate Aminotransferase 14 U/L (13-39); BUN Creatinine Ratio 23.9 (10-20); Bilirubin,Total 0.4 mg/dl (0.2-1.0); Blood Urea Nitrogen 79 mg/dl (6-23); Calcium 11.4 mg/dl (8.5-10.1); Carbon Dioxide 18 mmol/L (21-32); Chloride 100 mmol/L (98-107); Est GFR (African American) 15.1 ml/min; Globulin 4.8 gm/dl (2.5-4.0); Glucose 263 mg/dl (70-99(Fasting)); Lipase 27 U/L (11-82); Potassium 4.7 mmol/L (3.5-5.1); Sodium 130 mmol/L (136-145); Total Protein 8.8 gm/dl (6.0-8.3)
[2022-11-04 20:01] LABS: INR 1.2 (0.9-1.1); Partial Thromboplastin Ratio 0.9; Partial Thromboplastin Time 25.6 Seconds (21.0-31.0); Prothrombin Time 12.4 Seconds (9.0-12.0)
[2022-11-04 20:17] LABS: Troponin I High Sensitivity 89.6 pg/ml (0-14)
[2022-11-04] MEDS ORDERED: fentaNYL citrate 100 MCG/2 ML VIAL IV STA (20:22)
--- NOTE | 2022-11-04 20:41 | XRay Report ---
XR chest 1V portable HISTORY: Chest pain, nonspecific COMPARISON: Chest 05/21/2022. FINDINGS: No pneumothorax. The heart remains enlarged. Moderate pulmonary edema and small bilateral p leural effusions persist. Postoperative changes again noted within the right humerus. IMPRESSION: Moderate pulmonary edema and small bilateral pleural effusions which is similar to the prior study. ACT 112: Negative or not required by law. Electronically signed by: Duran Adhikari M.D. 11/04/2022 8:39 PM
--- NOTE | 2022-11-04 21:07 | History & Physical Report ---
Date of Service November 04, 2022 Assessment & Plan (1) Acute respiratory failure with hypoxia: Plan: -Admit to med/tele -The patient is currently afebrile, hemodynamically stable, and stable on Bipap at 10/5 with 30% FiO2. -The patient is significantly more comfortable with Bipap in place, she continues to denies chest pain, abdominal pain, and is now without left arm pain -Patient found to be volume overloaded with pulmonary edema on CXR and BNP in the 800's -The patient was treated with IV fluids for hypercalcemia prior to her discharge earlier today, was encouraged to drink copious amounts of water and continue her home 20 mg PO BID lasix -Her initial high sensitivity trop is elevated at 89.6, will repeat a 2 hour STAT and trend q6h overnight -Will continue on Bipap as long as she can tolerate, if needed she can receive another small dose of ativan -Will continue IV diuresis with 40 mg IV BID, monitor intake and output closely -Incentive spirometry, flutter therapy, prn duonebs -Should be cautious with additional IV fluids at this time -Patient's WBC is elevated with a left shift, she has been afebrile, without diarrhea, and dysuria >The patient has been on 40 mg PO prednisone daily since her last admission, could be from her sterid use >Ordered a procal, will follow and add abx if increased -Monitor am CBC, q12h BMP and mag while on IV lasix -BL SCDs and Sub-Q heparin for DVT PPX (2) Chest pain: Plan: -See acute respiratory failure (3) CHF (congestive heart failure): Plan: -See acute respiratory failure (4) CKD (chronic kidney disease), stage III: Plan: -Kidney function continues to improve compared to her last admission -Calcium is currently at 11.4 with sodium at 133 -Continue to monitor renal function and labs closely with q12h BMP and mag (5) Anemia: Plan: -Stable; Hgb currently at 9 -Patient was receiving IV Venofer infusions prior to discharge -Will hold venofer for now until infection is ruled out -Continue to follow with Nephrology for Procrit injections (6) Breast cancer: Plan: -Follows with Oncologist in [place], continue to follow up (7) GERD (gastroesophageal reflux disease): Plan: -Will start the patient on IV protonix daily while on Prednisone for stress ulcer PPX (8) MCKENZIE (nonalcoholic steatohepatitis): Plan: -Stable (9) HTN (hypertension): Plan: -Stable -Continue IV diuresis (10) Type 2 diabetes mellitus: Plan: -Monitor blood glucose ACHS -Will start with lantus 20 units BID -Correction factor of 20 and carb ratio of 5 -Adjust regimen as needed -DM II diet (11) Dyslipidemia: Plan: -Continue statin Plan The patient was seen with and discussed with Dr. Elmore at the time of the admission History of Present Illness Chief Complaint: chest pain, SOB Primary Care Provider: Pat Alejandre MD Pauline is a 72 year old female with a PMH significant for Breast cancer with metastases to the bone, [place] [facility] [place] , anemia, CKD stage 4, hypercalcemia, DM II, HFpEF, MCKENZIE, GERD, HTN, dyslipidemia, and Mobitz type 1 AV block who presented to the [facility] ED on 11/04/22 due to chest pain and SOB. In the ED the patient was found to be afebrile, hemodynamically stable, and hypoxic at 88% on RA. Labs were significant for a leukocytosis of 17 with left shift of 14, stable Hgb at 9.0, stable platelets, improving cr at 3.31 (down from 3.50 as of 3.50), glucose of 263, corrected sodium of 133, calcium of 11.4 (up from 10.9 earlier today), AG of 12 with bicarb of 18, alk phos of 113, BNP of 883, initial high sensitivity trop, and covid negative. Chest xray was read as "Moderate pulmonary edema and small bilateral pleural effusions which is similar to the prior study.". Prior to admission the patient was given 324 mg of aspirin, 25 mcg IV fentanyl, 40 mg IV lasix, and 0.4 SL Nitro. The patient was just discharged earlier today after being admitted on 11/02/22 due to JEFFREY on CKD, hypercalcemia of 13, hyperkalemia, hyperphosphatemia, and multifactorial anemia. Nephrology was consulted and recommended IV fluids. She was continued on NSS at 100mL/hr and was continue on her home dose of 20 mg PO lasix. Per the discharge instructions, she was encouraged to drink copious amounts of water and continue her BID Po lasix on discharge. She was started and discharged on 40 mg PO prednisone by Nephrology due to concerns of a possible granulomatous disease. She was found to have low iron levels and received 2 IV iron infusions while admitted. At the time of the exam the patient was in respiratory distress, sitting in a tripod position and with significant accessory muscle use and abdominal breathing. She states that she is having difficulty breathing, which started around 5 pm. Her daughter picked her up from the hospital around 1pm and they drove to [place] to look at some property. Her daughter noticed that the patient looked uncomfortable and the patient told her she was having difficultly breathing. They subsequently drove back to [facility] as they thought she received great care here. She denies recent fevers, chills, chest pain, nausea, vomiting, diarrhea, dysuria, hematuria and recent falls. She is experiencing some epigastric discomfort and states that she started to develop some left arm pain after her IV was placed in her left hand. She denies any pain in her neck, jaw, or back. She feels as though her lower extremities have been more swollen. Please refer to Dr. Elmore's attestation for any changes to the treatment plan. Allergies Allergy/AdvReac Type Severity Reaction Status Date / Time amoxicillin Allergy Severe LIPS Verified 11/04/22 20:53 SWELLED, "RED ALL OVER" doxycycline Allergy Severe LIPS Verified 11/04/22 20:53 SWELLED, "RED ALL OVER". cephalexin [From Keflex] Allergy Intermediate skin Verified 11/04/22 20:53 starts to peel off sulfamethoxazole Allergy Unknown Unknown Verified 11/04/22 20:53 [From Bactrim] trimethoprim [From Bactrim] Allergy Unknown Unknown Verified 11/04/22 20:53 atorvastatin AdvReac Intermediate Myalgia Verified 11/04/22 20:53 Home Medications Medication Instructions Recorded Confirmed Type promethazine 25 mg tablet 25 mg PO Q6H PRN nausea #30 tabs 08/17/19 11/04/22 Rx allopurinol 100 mg tablet 50 mg PO DAILY #45 tabs 11/17/21 11/04/22 Rx venlafaxine 75 mg capsule,extended 75 mg PO DAILY #90 caps 04/07/22 11/04/22 Rx release 24 hr tramadol 50 mg tablet 50 mg PO Q6 PRN Pain 05/19/22 11/04/22 History omega-3 fatty acids 1,000 mg 2,000 mg PO BID #360 caps 07/19/22 11/04/22 Rx capsule pen needle, diabetic 32 gauge x ##600 07/23/22 09/15/22 Rx " (UltiCare Pen Needle) clotrimazole-betamethasone 1 1 applic topical BID PRN Skin 11/02/22 11/04/22 History %-0.05 % topical cream Irritation denosumab 60 mg/mL subcutaneous 60 mg subcut WK #1 mL 11/02/22 11/04/22 Rx syringe (Prolia) epoetin kacey 40,000 unit/mL 40,000 unit subcut DIRECTED 11/02/22 11/04/22 History injection solution (Procrit) insulin aspart U-100 100 unit/mL 0 sliding scale dose subcut 11/02/22 11/04/22 History (3 mL) subcutaneous pen (Novolog DIRECTED FlexPen U-100 Insulin aspart) insulin glargine 100 unit/mL (3 22 unit subcut BID 11/02/22 11/04/22 History mL) subcutaneous pen (Lantus Solostar U-100 Insulin) furosemide 40 mg tablet 20 mg PO BID #28 tabs 11/04/22 11/04/22 Rx prednisone 20 mg tablet 40 mg PO DAILY 14 days #28 tabs 11/04/22 11/04/22 Rx Past Med/Surg History Medical History (HFpEF) heart failure with preserved ejection fraction JEFFREY (acute kidney injury) post-operative 2017 - short term dialysis Anemia Breast cancer diagnosed 2020 Candidal intertrigo Chronic kidney disease, stage 4 (severe) Chronic kidney disease, stage III (moderate) Chronic stasis dermatitis Crystal arthropathy Dyslipidemia GERD (gastroesophageal reflux disease) HTN (hypertension) Hyperuricemia Iron deficiency anemia Mobitz type 1 second degree AV block MCKENZIE (nonalcoholic steatohepatitis) Seborrheic dermatitis Statin myopathy Type 2 diabetes mellitus Vitamin D deficiency Surgical History History of appendectomy History of tonsillectomy and adenoidectomy Humerus fracture surgical repair Hx of cholecystectomy Family History Father Depression Diabetes Mother Hypertension Kidney stones Gallbladder disease Denies family history of Ovarian cancer Prostate cancer Myocardial infarction Breast cancer Colorectal cancer Social History Smoking Status: Never smoker Second Hand Exposure: No; Do You Dip or Chew Tobacco: No; Hx Alcohol Use: No Hx Substance Use: No Preferred Language: Central [place] Communication Ability: Effective Visual Impairment: Limited Hearing Ability: Normal Drop Man Required: No Beliefs That Will Affect Care: None marital status: Current Living Situation: Spouse 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 All systems have been reviewed and are otherwise negative. Physical Exam Physical Exam: Physical Exam: General:In acute distress, stated age, she does appear ill HEENT:Normocephalic, atraumatic, no scleral icterus, patient is blind in the right eye put the left pupil is round and reactive to light, moist mucus membranes, trachea midline, no thyromegaly Chest/Pulm:In respiratory distress, symmetrical chest expansion, expiratory wheezing noted throughout Cardiac:RRR, no murmurs noted Abdomen:Negative for ascites and bruising, normoactive bowel sounds, soft, non-tender to palpation throughout Musculoskeletal:Symmetrical and without signs of acute trauma, upper and lower extremities with full ROM, no atrophy, spasticity, or flaccidity Extremities:Radial, dorsalis pedis, and posterior tibial pulses are intact and symmetrical, 2+ edema noted in the BL LE's Skin:Warm, dry, no rashes , lesions, or scars noted Neuro:Alert and oriented to person, place, month, year, and president, no focal defects,no tremors noted Psych:In acute distress, but cooperative during the exam Results & Data Results & Data ([place]) Vital Signs (Past 12 Hours) Vital Signs Temp Pulse Pulse Resp BP BP Pulse Ox 11/04/22 18:37 11/04/22 19:18 94 11/04/22 19:15 85 26 H 161/74 H 94 11/04/22 19:15 88 L 11/04/22 18:39 36.4 C L 103 H 20 175/89 H 92 O2 Del Method O2 Flow Rate 11/04/22 18:37 Nasal Cannula 2 11/04/22 19:18 Nasal Cannula 2 11/04/22 19:15 Nasal Cannula 2 11/04/22 19:15 Room Air 11/04/22 18:39 Room Air Laboratory Results Abnormal lab results 11/04/22 11/04/22 11/04/22 Range/Units 19:19 19:19 19:19 WBC 17.01 H (4.8-10.8) K/ul RBC 2.71 L (4.20-5.40) M/uL Hgb 9.0 L (12.0-16.0) g/dl Hct 27.4 L (37.0-47.0) % MCV 101.1 H (80.0-100.0) fL RDW Std Deviation 54.0 H (36.4-46.3) fL Neut # (Auto) 14.76 H (1.40-6.50) K/uL Immature Gran # (Auto) 0.36 H (0.01-0.20) K/uL PT 12.4 H (9.0-12.0) Seconds INR 1.2 H (0.9-1.1) Sodium 130 L (136-145) mmol/L Carbon Dioxide 18 L (21-32) mmol/L Anion Gap 12 H (3-11) BUN 79 H (6-23) mg/dl Creatinine 3.31 H (0.6-1.2) mg/dl BUN/Creatinine Ratio 23.9 H (10-20) Glucose 263 H (70-99(Fasting)) mg/dl Calcium 11.4 H (8.5-10.1) mg/dl Alkaline Phosphatase 113 H (34-104) U/L Troponin I High Sens 89.6 H* (0-14) pg/ml B-Natriuretic Peptide (0-100) pg/ml Total Protein 8.8 H (6.0-8.3) gm/dl Globulin 4.8 H (2.5-4.0) gm/dl Albumin/Globulin Ratio 0.8 L (0.9-2) 11/04/22 Range/Units 19:19 WBC (4.8-10.8) K/ul RBC (4.20-5.40) M/uL Hgb (12.0-16.0) g/dl Hct (37.0-47.0) % MCV (80.0-100.0) fL RDW Std Deviation (36.4-46.3) fL Neut # (Auto) (1.40-6.50) K/uL Immature Gran # (Auto) (0.01-0.20) K/uL PT (9.0-12.0) Seconds INR (0.9-1.1) Sodium (136-145) mmol/L Carbon Dioxide (21-32) mmol/L Anion Gap (3-11) BUN (6-23) mg/dl Creatinine (0.6-1.2) mg/dl BUN/Creatinine Ratio (10-20) Glucose (70-99(Fasting)) mg/dl Calcium (8.5-10.1) mg/dl Alkaline Phosphatase (34-104) U/L Troponin I High Sens (0-14) pg/ml B-Natriuretic Peptide 883 H (0-100) pg/ml Total Protein (6.0-8.3) gm/dl Globulin (2.5-4.0) gm/dl Albumin/Globulin Ratio (0.9-2) Diagnostic Findings Chest X-Ray 11/04/22 18:44 XR chest 1V portable HISTORY: Chest pain, nonspecific COMPARISON: Chest 05/21/2022. FINDINGS: No pneumothorax. The heart remains enlarged. Moderate pulmonary edema and small bilateral pleural effusions persist. Postoperative changes again noted within the right humerus. IMPRESSION: Moderate pulmonary edema and small bilateral pleural effusions which is similar to the prior study. ACT 112: Negative or not required by law. Electronically signed by: Duran Adhikari M.D. 11/04/2022 8:39 PM ECG Additional Comments: Sinus rhythm with sinus arrhythmia with 1st degree A-V block Non-specific intra- ventricular conduction block Possible Lateral infarct (cited on or before 19-MAY-2022) Abnormal ECG When compared with ECG of 02-NOV-2022 13:37, Significant changes have occurred Code Status & VTE Plan Code Status Full code VTE Prophylaxis Plan VTE Prophylaxis will be ordered: Yes Supervising Physician Co-Signing Physician Notes Patient seen and examined, chart reviewed, case discussed with TRAVIS Fishman and I agree with the assessment and plan as documented above. In brief, patient is a 72yo female with recent hospitalization for hypercalcemia treated with IV fluids and Lasix - discharged earlier today returning with respiratory distress. Patient tachypneic with accessory muscle use in the ER requiring placement of BiPAP. She has been given Lasix 40mg IV x 2 doses with minimal UOP thus far. On exam she is sitting upright with BiPAP in place, breathing comfortably Skin - intact, some chronic changes of LE HEENT - Neck supple, JVD difficult to assess due to body habitus Heart - +S1/S2, regular with ectopy Lungs - +crackles bilateral lung solis Abd - +BS, soft, NT/ND Ext - trace edema Labs and images reviewed Assessment/Plan -Diuresis with Lasix 40mg IV BID -Monitor q 12 hour chemistry to assess electrolytes and renal function -DuoNeb PRN -Wean BiPAP as tolerated -Remainder as above PG Care Time/CCT Total # of Minutes Spent Total Time Spent with Patient: Total time spent is greater than 50% in coordination of care (as documented) at patient's floor/unit and/or counseling patient: C[place] [address] INT INP/OBS CARE 3/75MIN Patient Type Established Medical Decision Making High Complexity Diagnoses Acute respiratory failure with hypoxia J96.01 Chest pain R07.9 CHF (congestive heart failure) I50.9 CKD (chronic kidney disease), stage III N18.30 Anemia D64.9 Breast cancer C50.912 Breast location: unspecified site of breast Estrogen receptor status: unspecified Laterality: left Patient sex: female GERD (gastroesophageal reflux disease) K21.9 MCKENZIE (nonalcoholic steatohepatitis) K75.81 HTN (hypertension) I10 Type 2 diabetes mellitus E11.9 Dyslipidemia E78.5 (1) Breast cancer Breast location: unspecified site of breast Estrogen receptor status: unspecified Laterality: left Patient sex: female Qualified Code(s): C50.912 - Malignant neoplasm of unspecified site of left female breast
[2022-11-04] MEDS ORDERED: LORazepam 2 MG/1 ML VIAL IV STA (21:17)
[2022-11-04] MEDS ORDERED: ALBUT/IPRATROP 3MG/0.5MG NEB 3 ML VIAL ONE (21:25)
[2022-11-04] MEDS ORDERED: FUROSEMIDE 40 MG/4 ML VIAL IV STA (22:24)
[2022-11-04] MEDS ORDERED: PANTOprazole 40 MG in SYRINGE 0 ML IV STA (22:38)
[2022-11-04] MEDS ORDERED: traMADol HCL 50 MG TABLET PO PRN (23:25)
[2022-11-04] MEDS ORDERED: CARBOHYDRATES FOR HYPOGLYCEMIA PO PRN (23:25)
[2022-11-04] MEDS ORDERED: ONDANSETRON INJ 2 MG/ML 2 ML VIAL IV PRN (23:25)
[2022-11-04] MEDS ORDERED: ALBUT/IPRATROP 3MG/0.5MG NEB 3 ML VIAL NEB SCH (23:25)
[2022-11-04] MEDS ORDERED: GLUCAGON FOR INJ 1 MG VIAL SQ PRN (23:25)
[2022-11-04] MEDS ORDERED: GLUCOSE 40% GEL 15 GM TUBE PO PRN (23:25)
[2022-11-04] MEDS ORDERED: ACETAMINOPHEN 325 MG TAB PO PRN (23:25)
[2022-11-04] MEDS ORDERED: DEXTROSE 50% 50 ML SYRINGE IV PRN (23:25)
[2022-11-04] MEDS ORDERED: GLUCOSE 10 TAB/TUBE PO PRN (23:25)
[2022-11-04] MEDS: HEPARIN SOD 5,000 UNIT/0.5 ML VIAL SQ SCH (23:39)
[2022-11-04] MEDS: INSULIN ASPART PER UNIT SC SCH (23:50)
[2022-11-04] MEDS: LANTUS PER UNIT CHARGE SQ SCH (23:51)
[2022-11-05] MEDS ORDERED: LORazepam 2 MG/1 ML VIAL IV STA (00:36)
[2022-11-05] MEDS ORDERED: ALBUT/IPRATROP 3MG/0.5MG NEB 3 ML VIAL NEB PRN (00:39)
[2022-11-05 00:42] LABS: Appearance Urine Clear (Clear); Bacteria Urine Automated 2+ (Negative); Bilirubin Urine Negative (Negative); Blood Urine 1+ (Negative); Color Urine Yellow; Glucose Urine UA Trace (Negative); Ketones Urine Negative (Negative); Leukocyte Esterase Urine Trace (Negative); Nitrite Urine Positive (Negative); Protein Urine Negative (Negative); RBC Urine Automated 0-4 /hpf (0-4); Specific Gravity Urine 1.009 (1.000-1.030); Urobilinogen Urine Negative (Negative)
[2022-11-05 06:19] LABS: Hematocrit (blood only) 24.1 % (37.0-47.0); Hemoglobin 7.8 g/dl (12.0-16.0); Mean Corpuscular Hemoglobin 32.5 pg (25.0-34.0); Mean Corpuscular Hgb Conc 32.4 g/dL (32.0-36.0); Mean Corpuscular Volume 100.4 fL (80.0-100.0); Mean Platelet Volume 10.3 fL (9.4-12.4); Platelet Count 235 K/uL (130-400); RDW Coefficient of Variation 14.2 % (11.5-14.5); RDW Standard Deviation 52.5 fL (36.4-46.3); White Blood Count 12.92 K/ul (4.8-10.8)
[2022-11-05 06:43] LABS: Calcium 11.9 mg/dl (8.5-10.1); Magnesium 2.4 mg/dl (1.7-2.4); Potassium 4.3 mmol/L (3.5-5.1)
[2022-11-05 06:49] LABS: BUN Creatinine Ratio 23.9 (10-20); Creatinine Clr Calc Pharmacy 16.5 ml/min; Est GFR (African American) 14.2 ml/min; Est GFR (Non-African American) 12.3 ml/min
[2022-11-05] MEDS ORDERED: ALBUT/IPRATROP 3MG/0.5MG NEB 3 ML VIAL NEB SCH (07:00)
[2022-11-05 07:10] LABS: Troponin I High Sensitivity 32648.5 pg/ml (0-14)
--- NOTE | 2022-11-05 08:26 | Electrocardiogram Report ---
Test Reason : Blood Pressure : / mmHG Vent. Rate : 095 BPM Atrial Rate : 095 BPM P-R Int : 256 ms QRS Dur : 126 ms QT Int : 376 ms P-R-T Axes : 043 073 171 degrees QTc Int : 472 ms Probable Sinus rhythm with 1st degree A-V block Left bundle branch block Abnormal ECG When compared with ECG of 02-NOV-2022 13:37, HR has increased by 39 bpm Left bundle branch block now present Junctional rhythm no longer present Confirmed by Triston Jones ([id number]) on 11/05/2022 8:26:22 AM Referred By: REFERRED SELF Confirmed By:Triston Jones
--- NOTE | 2022-11-05 08:29 | Electrocardiogram Report ---
Test Reason : Blood Pressure : / mmHG Vent. Rate : 087 BPM Atrial Rate : 097 BPM P-R Int : 000 ms QRS Dur : 110 ms QT Int : 320 ms P-R-T Axes : 000 094 203 degrees QTc Int : 385 ms Probable Sinus rhythm with 1st degree A-V block Incomplete left bundle block Abnormal ECG When compared with ECG of 04-NOV-2022 18:48, QRS duration has decreased Confirmed by Triston Jones ([id number]) on 11/05/2022 8:29:05 AM Referred By: REFERRED SELF Confirmed By:Triston Jones
--- NOTE | 2022-11-05 08:31 | Electrocardiogram Report ---
Test Reason : Blood Pressure : / mmHG Vent. Rate : 057 BPM Atrial Rate : 086 BPM P-R Int : 000 ms QRS Dur : 108 ms QT Int : 380 ms P-R-T Axes : 000 084 262 degrees QTc Int : 369 ms Sinus rhythm with 2nd degree A-V block (Mobitz I) Incomplete left bundle block Abnormal ECG When compared with ECG of 04-NOV-2022 21:35, Second degree A-V block now present Confirmed by Triston Jones ([id number]) on 11/05/2022 8:31:29 AM Referred By: REFERRED SELF Confirmed By:Triston Jones
[2022-11-05] MEDS: HEPARIN SOD 5,000 UNIT/0.5 ML VIAL SQ SCH ×2 (09:14→20:51)
[2022-11-05] MEDS: VENLAFAXINE HCL XR 75 MG CAPXR PO SCH (09:15)
[2022-11-05] MEDS: allopurinoL 100 MG TAB PO SCH (09:16)
[2022-11-05] MEDS: predniSONE 20 MG TAB PO SCH (09:16)
[2022-11-05] MEDS: FUROSEMIDE 40 MG/4 ML VIAL IV SCH ×2 (09:43→20:53)
--- NOTE | 2022-11-05 09:57 | Hospitalist Progress Note ---
Date of Service November 05, 2022 Assessment & Plan (1) Acute respiratory failure with hypoxia: (2) Elevated troponin: (3) Acute kidney injury superimposed on CKD: (4) Anemia: (5) MCKENZIE (nonalcoholic steatohepatitis): (6) GERD (gastroesophageal reflux disease): (7) HTN (hypertension): (8) Type 2 diabetes mellitus: (9) Hypercalcemia: Plan Pt is a 72 yo female with PMH of CKD, CHF, MCKENZIE, GERD, HTN, DM, HLD, and breast cx in current treatment presenting to the ER due to SOB. Pt was discharged yesterday after being treated w/ IVF for hypercalcemia and JEFFREY. Acute respiratory failure with hypoxia secondary to fluid overload - pt requiring BIPAP upon admission, now satting 90s on RA - CXR showed moderate pulmonary edema and bilateral pleural effusions - lab work significant for BNP in 800s - continue IV diuresis with lasix 40 mg IV BID; monitor intake and output closely (pt so far -2.1 L) - continue incentive spirometry, flutter therapy, prn duonebs NSTEMI - initial trop was [place] 89[place] [address], and has since downtrended - no chest pain, no ST elevations or depression on EKGs - echo pending - likely related to demand in the setting of fluid overload - discussed possibility of cath w/ patient; pt declining at this time - cardiology consulted Leukocytosis - no signs of infection - most likely related to steroid use (40 mg daily) Acute on chronic diastolic CHF (congestive heart failure) - as above CKD (chronic kidney disease), stage V - Cr 3.31 upon admission (improved since discharge) - pt was instructed to hold spironolactone for hyperkalemia upon discharge; continue to hold - Cr today 3.48 - continue to monitor in the setting of aggressive diuresis Hypercalcemia - multifactorial, especially related to kidney dysfunction and breast cancer w/ bone mets - concern for granulomatous disease; CT chest and CTAP w/o contrast ordered - continue prednisone 40mgs daily - Ca upon admission 11.4 - Ca today 11.9 - continue to monitor Anemia - Hgb 9.8 upon admission; down to 7.8 this AM - pt received two 200 mg iron infusions during last admission - will resume iron infusions x3 more days - continue to follow with nephrology for procrit injections outpatient Breast cancer w/ bone mets - follows with oncologist in [place]; continue to follow closely GERD - continue IV protonix daily MCKENZIE -Stable HTN - Stable Type 2 diabetes mellitus - monitor blood glucose ACHS - basal lantus 20 units BID - correction factor of 20 and carb ratio of 5 - adjust regimen as needed Morbid obesity with BMI 44 - outpatient discussion for weight management Dispo: PCU w/ tele DVT ppx: heparin (pt refused), AIDEN west applied Diet: heart healthy, low sodium diet Code: full Admission and Anticipated Discharge Date Admission Date: November 04, 2022 Supervising Physician Co-Signing Physician Notes Resident Physician Supervision Note: I independently interviewed and examined the patient and verified the barrett history and physical, reviewed labs and image studies and agree with resident findings and care plan. Subjective Pt is a 72 yo female with PMH of CKD, CHF, MCKENZIE, GERD, HTN, DM, HLD, and breast cx in current treatment presenting to the ER due to SOB. Pt was discharged yesterday after being treated w/ IVF for hypercalcemia and JEFFREY. Pt was discharged from the hospital yesterday after her multiple metabolic derangements had been closer to normal limits. However, pt's significant other stated they did not make it home after discharge (as they were running errands) before the pt began to feel short of breath. She was given 80 mg lasix IV in the ER and continued on 40 mg lasix IV BID upon admission. Pt seen this AM. Her significant other explains she has been very groggy/sleepy because she received two 0.25 mg of ativan due to anxiety related to her respiratory distress. Pt's signficant other stated that she noticed pt's abdomen was distended. Pt much more alert when seen in the afternoon. Pt w/o chest pain, improved SOB, and no leg pains. Review of Systems Review of Systems: All systems reviewed & are unremarkable except as noted in HPI & below Physical Exam Constitutional: NAD. Vitals WNL. Pt taken off bipap and now satting 90s on 2L NC. Respiratory: Decreased breath sounds throughout. Rhonchi heard in bilateral lower lung solis. No wheezing. Non labored breathing. Cardiovascular: RRR. No murmur noted. Nonpitting edema in right lower extremity from feet up to knees. 1+ pitting edema in left lower extremity. Psychiatric: At first, pt very groggy and hard to awaken. However, near end of visit, pt was awake and speaking. Alert. Oriented. Results & Data Results & Data ([facility]) Vital Signs (Past 12 Hours) Vital Signs Temp Pulse Pulse Resp BP BP Pulse Ox 11/05/22 09:11 96 11/05/22 07:57 36.3 C L 114 H 18 164/66 H 92 11/05/22 07:19 58 L 18 98 11/05/22 04:24 36.3 C L 71 22 151/64 H 98 11/05/22 02:13 75 21 99 11/05/22 00:40 70 11/05/22 00:29 81 25 H 95 11/05/22 00:16 11/04/22 23:03 70 32 H 99 11/04/22 23:22 36.4 C L 74 22 153/57 H 100 11/04/22 22:49 71 21 168/100 H 98 O2 Del Method O2 Flow Rate FiO2 11/05/22 09:11 Nasal Cannula 1 11/05/22 07:57 BiPAP 30 11/05/22 07:19 30 11/05/22 04:24 BiPAP 30 11/05/22 02:13 30 11/05/22 00:40 11/05/22 00:29 BiPAP 11/05/22 00:16 BiPAP 30 11/04/22 23:03 30 11/04/22 23:22 BiPAP 30 11/04/22 22:49 BiPAP Resident Activity Tracking Resident Involvement: Resident Care Provided Care Provided: Adult Hospital Medicine
[2022-11-05] MEDS: INSULIN ASPART PER UNIT SC SCH ×4 (10:20→20:55)
[2022-11-05] MEDS: LANTUS PER UNIT CHARGE SQ SCH ×2 (10:27→20:54)
[2022-11-05] MEDS ORDERED: PANTOprazole 40 MG in SYRINGE 0 ML IV SCH (11:00)
[2022-11-05] MEDS ORDERED: IRON SUCROSE 200 MG in 0.9 % SODIUM CHLORIDE 100 ML IV ONE (14:00)
--- NOTE | 2022-11-05 15:37 | XCELERA ---
[id number]
--- NOTE | 2022-11-05 15:54 | CT Scan Report ---
CT chest diagnostic wo con CT DOSE: 2822.11 mGy.cm HISTORY: Shortness of breath. possible granulomatous disease TECHNIQUE: Multiaxial CT images of the chest were performed without contrast. A dose lowering techni que was utilized adhering to the principles of ALARA. COMPARISON: None. FINDINGS: Prior internal fixation of an old, healed right humeral fracture. Mild motion artifact. No acute fractures identified within the chest. No pneumothorax. The central airways are patent. There a re a few partially opacified distal right lower lobe bronchi. There is diffuse interlobular septal th ickening consistent with moderate pulmonary edema. Patchy bilateral lower lobe airspace opacities are nonspecific but favor atelectasis from the pleural effusions. Moderate right and small left pleural effusions are noted. There is a 4 cm irregular masslike density within the upper left breast. This wa s described on a prior mammogram from 06/18/2021. No axillary, mediastinal, or hilar lymphadenopathy. The heart is mildly enlarged. Severe coronary artery and mitral annulus calcifications. Normal esopha charles. Normal caliber thoracic aorta. No pericardial effusion. The abdominal structures will be reporte d on the same day abdomen and pelvis CT. IMPRESSION: 1. Moderate pulmonary edema with bilateral pleural effusions. 2. Redemonstration of a 4 cm left breast masslike density. This was described on a prior mammogram/ul trasound. Follow up recommended at a dedicated breast cancer Center. 3. The patchy bilateral lower lobe airspace opacities are nonspecific but favor atelectasis. A pneumo latesha could also have a similar appearance. ACT 112: Positive. There are findings on this exam that require communication between the performing entity and the patient following Patient Test Result Information Act ([place] Act 112) guidelines. Electronically signed by: Duran Adhikari M.D. 11/05/2022 3:52 PM
--- NOTE | 2022-11-05 16:11 | CT Scan Report ---
ABDOMEN AND PELVIS CT WITHOUT CONTRAST CT DOSE: HISTORY: Generalized abdominal pain. TECHNIQUE: Multiaxial CT images of the abdomen and pelvis were performed without contrast. A dose lo wering technique was utilized adhering to the principles of ALARA. COMPARISON STUDY: Abdomen and pelvis CT 01/31/2018. FINDINGS: The lung bases will be reported on the same day chest CT. A 4 cm left breast mass is again noted. No pneumoperitoneum. No pneumatosis. There are few scattered osteoblastic lesions seen within the proximal left femur, lower thoracic, and lumbar spine. These are new from the prior study. Domina nt lesion within the L1 vertebral body measures 2 cm. These are highly suspicious for osteoblastic me tastatic disease. There are old left-sided transverse process fractures. Tiny fat-containing umbilica l hernia. Mild body wall edema is noted. Bilateral pleural effusions. Heterogeneous appearance to the liver which could be due to overlapping artifact from the patient's arms. Prior cholecystectomy. The spleen, pancreas, and adrenal glands unremarkable. No hydronephrosis. Bilateral perinephric edema is noted. There is mild periportal and retroperitoneal lymphadenopathy. Dominant retroperitoneal lymph node measures 12 mm. Small amount of ascites is identified. The bladder is unremarkable. There is paulino cified uterine fibroid. Suboptimal evaluation for bowel pathology due to the lack of intravenous and oral contrast. However, there is no definite bowel wall thickening or obstruction. IMPRESSION: 1. Redemonstration of a 4 cm left breast mass. 2. There are few scattered osteoblastic lesions within the thoracic spine, lumbar spine, and left fem ur. These are highly suspicious for osteoblastic metastatic disease. Follow-up nuclear medicine bone scan can be performed for confirmation. 3. Heterogeneous appearance to the liver which may be due to artifact from the patient's overlapping arms. Follow-up ultrasound recommended to exclude the possibility of underlying hepatic lesions. 4. Bilateral pleural effusions. 5. Small amount of ascites. 6. No definite bowel wall thickening or obstruction. 7. Mild retroperitoneal and periportal lymphadenopathy. ACT 112: Negative or not required by law. Electronically signed by: Duran Adhikari M.D. 11/05/2022 4:09 PM
--- NOTE | 2022-11-05 17:29 | Cardiology Consultation ---
Date of Consultation November 05, 2022 Assessment & Plan (1) Acute respiratory failure with hypoxia: Imaging highly suggestive of pleural effusions and at least moderate pulmonary edema. She has been diuresed 2 L with IV Lasix with improvement in symptoms. By physical exam she still has volume overload at this time. This is secondary to high-grade chronic renal insufficiency in combination with newly reduced ejection fraction and grade 2 diastolic dysfunction. Continue IV Lasix. At some point we will need to optimize her chronic heart failure regimen for the systolic dysfunction. This would include heart failure indicated beta-he but we would abstain from Entresto/KODY inhibitor/ARB. May benefit from combined hydralazine and long-acting nitrate but we can address that in the future. Additional adjuvant medications including SGLT2 inhibitor and spironolactone may also have a role. We cannot exclude pneumonia with the overlying pleural effusions particularly in light of her elevated white blood cell count but she seems to be afebrile. This should be monitored. (2) Elevated troponin: Global LV dysfunction. Cannot exclude severe underlying coronary disease without catheterization or high and noninvasive angiography (cardiac CTA, cardiac MRA). I suspect that this represents a type II non-ST elevation LA or even a stress-induced cardiomyopathy with her new global LV systolic dysfunction. I would treat her presumptively for underlying coronary disease given her risk factors since she is unwilling to undergo cardiac catheterization. This should include beta-he, low-dose aspirin, high intensity statin therapy (do not use a atorvastatin), but cannot utilize KODY inhibitor/ARB. Fortunately, she is not having any anginal symptoms. (3) Acute on chronic combined systolic (congestive) and diastolic (congestive) heart failure: Persistent volume overload at this time. IV loop diuretic. Heart failure indicated beta-he (metoprolol succinate ER or carvedilol) once not having class IV [place] heart association symptoms. (Dyspnea at rest). Probably appropriate tomorrow. (4) HTN (hypertension): Blood pressure is above target. However, not very elevated so at this point do not need to change her medical regimen. If our goal is to initiate appropriate coronary disease and congestive heart failure therapy then these will certainly include medications to lower blood pressure. (5) Dyslipidemia: Patient is high risk. High intensity statin therapy is recommended. Not sure what her liver function is with her history of cirrhosis but her INR is elevated without anticoagulation suggesting at least some degree of liver dysfunction. This will have implications of on use of statin. She previously had myopathy from a atorvastatin which is not uncommon. She may tolerate pravastatin or low- dose rosuvastatin. If she cannot tolerate these then PCSK9 inhibitor would be recommended. Plan Patient does not want any aggressive measures including cardiac catheterization, surgery, or dialysis. She has bone metastases from breast cancer and associated hypercalcemia. She also has poor renal function (stage IV) compounding her hypercalcemia. We will try to optimize her cardiac regimen but understand that some medications may not be tolerated. Should she change her mind about being more aggressive we can revisit catheterization in the future. We will follow over the weekend. NOTE: I have spent 75 minutes in the review of all available inpatient and outpatient records, outpatient records from outside this facility, review of recent hospitalization, examination of the patient, discussion with the patient and her family, discussion with the medical team, formulation and implementation of a plan of care, and all associated documentation. History of Present Illness Reason for Consultation: Elevated troponin Fluid overload Attending Physician: Sallie Ortiz MD History of Present Illness 72-year-old diabetic female with chronic kidney disease stage IV, history of diastolic heart failure, Mobitz 1 AV block, and pertinent noncardiac history including nonalcoholic cirrhosis, breast cancer with bone metastases, and hypercalcemia who returns after less than 24 hours from recent discharge with complaint of severe shortness of breath and epigastric discomfort. She was found to be hypoxic with oxygen saturation of 88% and was placed on BiPAP. Chest x-ray was consistent with pulmonary edema and her BNP was 800. She also was found to have elevated troponin. I am asked to see her regarding this constellation of findings and symptoms. Patient denies any chest pain, pressure, or heaviness. She had significant shortness of breath but was placed on BiPAP and Lasix and notes significant diuresis resulting in improved shortness of breath. She did have epigastric and abdominal discomfort which she states is now improved and was secondary to "fluid in my abdomen". She denies any syncope, near syncope, PND, racing heartbeat, or palpitations. She did have some mild lower extremity edema and significant orthopnea. She tells me that at recent discharge she did not feel she was given enough Lasix (only p.o. instead of IV). In review of her records I note that she has been seen in the past by Dr. Skinner from [facility] cardiology/transplant service for chronic heart failure. She also was previously seen by Dr. Floyd in the past. Dr. Skinner reports that the patient underwent cardiac catheterization in 2013. At that time she was found to have a chronic total occlusion of the RCA with moderate disease in the left coronary system. Echocardiogram at that time showed EF of 60 to 65% with mild aortic stenosis and moderate mitral annular calcification. She also had first-degree AV block at that time. Since then, she has developed Mobitz 1 second-degree AV block and her renal function has worsened. She has a history of chronic anemia and she tells me today that she received IV iron. Her echocardiogram today shows mild to moderate reduction in LVEF (40%), mild mitral and tricuspid regurgitation. I discussed with her recommendation for cardiac catheterization given her prior history and new reduction in ejection fraction with substantial elevation in cardiac troponin. However, she is uninterested in catheterization at this time. She also is not interested in hemodialysis and understands that her poor renal function could worsen with the use of IVP contrast. She voices no other complaints or concerns at this time. Her is present in the room with her and agrees with her decisions. Allergies Allergy/AdvReac Type Severity Reaction Status Date / Time amoxicillin Allergy Severe LIPS Verified 11/04/22 20:53 SWELLED, "RED ALL OVER" doxycycline Allergy Severe LIPS Verified 11/04/22 20:53 SWELLED, "RED ALL OVER". cephalexin [From Keflex] Allergy Intermediate skin Verified 11/04/22 20:53 starts to peel off sulfamethoxazole Allergy Unknown Unknown Verified 11/04/22 20:53 [From Bactrim] trimethoprim [From Bactrim] Allergy Unknown Unknown Verified 11/04/22 20:53 atorvastatin AdvReac Intermediate Myalgia Verified 11/04/22 20:53 Home Medications Medication Instructions Recorded Confirmed Type promethazine 25 mg tablet 25 mg PO Q6H PRN nausea #30 tabs 08/17/19 11/04/22 Rx allopurinol 100 mg tablet 50 mg PO DAILY #45 tabs 11/17/21 11/04/22 Rx venlafaxine 75 mg capsule,extended 75 mg PO DAILY #90 caps 04/07/22 11/04/22 Rx release 24 hr tramadol 50 mg tablet 50 mg PO Q6 PRN Pain 05/19/22 11/04/22 History omega-3 fatty acids 1,000 mg 2,000 mg PO BID #360 caps 07/19/22 11/04/22 Rx capsule pen needle, diabetic 32 gauge x ##600 07/23/22 09/15/22 Rx " (UltiCare Pen Needle) clotrimazole-betamethasone 1 1 applic topical BID PRN Skin 11/02/22 11/04/22 History %-0.05 % topical cream Irritation denosumab 60 mg/mL subcutaneous 60 mg subcut WK #1 mL 11/02/22 11/04/22 Rx syringe (Prolia) epoetin kacey 40,000 unit/mL 40,000 unit subcut DIRECTED 11/02/22 11/04/22 History injection solution (Procrit) insulin aspart U-100 100 unit/mL 0 sliding scale dose subcut 11/02/22 11/04/22 History (3 mL) subcutaneous pen (Novolog DIRECTED FlexPen U-100 Insulin aspart) insulin glargine 100 unit/mL (3 22 unit subcut BID 11/02/22 11/04/22 History mL) subcutaneous pen (Lantus Solostar U-100 Insulin) furosemide 40 mg tablet 20 mg PO BID #28 tabs 11/04/22 11/04/22 Rx prednisone 20 mg tablet 40 mg PO DAILY 14 days #28 tabs 11/04/22 11/04/22 Rx Patient History Medical History (HFpEF) heart failure with preserved ejection fraction JEFFREY (acute kidney injury) post-operative 2017 - short term dialysis Anemia Breast cancer diagnosed 2020 Candidal intertrigo Chronic kidney disease, stage 4 (severe) Chronic kidney disease, stage III (moderate) Chronic stasis dermatitis Crystal arthropathy Dyslipidemia GERD (gastroesophageal reflux disease) HTN (hypertension) Hyperuricemia Iron deficiency anemia Mobitz type 1 second degree AV block MCKENZIE (nonalcoholic steatohepatitis) Seborrheic dermatitis Statin myopathy Type 2 diabetes mellitus Vitamin D deficiency Surgical History History of appendectomy History of tonsillectomy and adenoidectomy Humerus fracture surgical repair Hx of cholecystectomy Family History Father Depression Diabetes Mother Hypertension Kidney stones Gallbladder disease Denies family history of Ovarian cancer Prostate cancer Myocardial infarction Breast cancer Colorectal cancer Social History Smoking Status: Never smoker Second Hand Exposure: No; Do You Dip or Chew Tobacco: No; Hx Alcohol Use: No Hx Substance Use: No Preferred Language: Mauritian Communication Ability: Effective Visual Impairment: Limited Hearing Ability: Normal Software Applications Engineer Required: No Beliefs That Will Affect Care: None marital status: Current Living Situation: Spouse 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 No acute distress. Sitting up in the chair. Eyes: Extraocular muscles intact. Sclera are anicteric. ENMT: Oral mucosa is pink and moist. Neck: Thick. I do not appreciate any JVD. Respiratory: Bibasilar dullness. Diffuse crackles. Fair air movement. Cardiovascular: Regular rate and rhythm. Soft systolic murmur. S4 gallop. Trace to 1+ bilateral lower extremity edema. Chronic venous stasis changes. Musculoskeletal: No cyanosis. Skin: Appears mildly jaundiced Neurologic: Cognition is intact. Speech is fluent. No focal motor deficits. No tremor. Psychiatric: A+Ox3, euthymic affect Results & Data ([facility]) Vital Signs (Past 12 Hours) Vital Signs Temp Pulse Pulse Resp BP Pulse Ox O2 Del Method 11/05/22 16:35 36.6 C 78 18 151/69 H 97 Nasal Cannula 11/05/22 15:43 69 11/05/22 11:26 36.3 C L 63 18 135/76 95 Room Air 11/05/22 08:00 56 L 11/05/22 08:00 Nasal Cannula 11/05/22 09:11 96 Nasal Cannula 11/05/22 07:57 36.3 C L 114 H 18 164/66 H 92 BiPAP 11/05/22 07:19 58 L 18 98 O2 Flow Rate FiO2 11/05/22 16:35 2 11/05/22 15:43 11/05/22 11:26 11/05/22 08:00 11/05/22 08:00 2 11/05/22 09:11 1 11/05/22 07:57 30 11/05/22 07:19 30 PG Care Time/CCT Total # of Minutes Spent Total Time Spent with Patient: Total time spent is greater than 50% in coordination of care (as documented) at patient's floor/unit and/or counseling patient: [place] [address] INT INP/OBS CARE 3/75MIN Patient Type New Diagnoses Acute respiratory failure with hypoxia J96.01 Elevated troponin R77.8 Acute on chronic combined systolic (congestive) and diastolic (congestive) heart failure I50.43 HTN (hypertension) I10 Dyslipidemia E78.5
[2022-11-05 18:36] LABS: BUN Creatinine Ratio 24.1 (10-20); Calcium 12.8 mg/dl (8.5-10.1); Creatinine Clr Calc Pharmacy 15.4 ml/min; Est GFR (African American) 13.1 ml/min; Est GFR (Non-African American) 11.3 ml/min; Magnesium 2.5 mg/dl (1.7-2.4); Potassium 4.6 mmol/L (3.5-5.1)
[2022-11-05 23:33] LABS: Calcium 11.7 mg/dl (8.5-10.1); Creatinine Clr Calc Pharmacy 14.8 ml/min; Est GFR (African American) 12.5 ml/min; Est GFR (Non-African American) 10.8 ml/min; Potassium 4.7 mmol/L (3.5-5.1)
[2022-11-06 00:56] LABS: Troponin I High Sensitivity 13396.5 pg/ml (0-14)
[2022-11-06] MEDS ORDERED: MICONAZOLE NITRATE POWDER 43 GM EXT PRN (01:29)
[2022-11-06 07:01] LABS: BUN Creatinine Ratio 23.4 (10-20); Calcium 11.7 mg/dl (8.5-10.1); Creatinine Clr Calc Pharmacy 14.7 ml/min; Est GFR (African American) 12.4 ml/min; Est GFR (Non-African American) 10.7 ml/min; Magnesium 2.5 mg/dl (1.7-2.4); Potassium 4.4 mmol/L (3.5-5.1)
--- NOTE | 2022-11-06 07:51 | Hospitalist Progress Note ---
Date of Service November 06, 2022 Assessment & Plan (1) Acute respiratory failure with hypoxia: (2) Elevated troponin: (3) Acute kidney injury superimposed on CKD: (4) Anemia: (5) MCKENZIE (nonalcoholic steatohepatitis): (6) GERD (gastroesophageal reflux disease): (7) HTN (hypertension): (8) Type 2 diabetes mellitus: (9) Hypercalcemia: Plan Pt is a 72 yo female with PMH of CKD, CHF, MCKENZIE, GERD, HTN, DM, HLD, and breast cx in current treatment presenting to the ER due to SOB. Pt was discharged 11/04/2022 after being treated w/ IVF for hypercalcemia and JEFFREY. Acute respiratory failure with hypoxia secondary to fluid overload - pt requiring BIPAP upon admission, now satting 90s on RA - CXR showed moderate pulmonary edema and bilateral pleural effusions - lab work significant for BNP in 800s - continue IV diuresis with lasix 40 mg IV BID; monitor intake and output closely (pt so far -3.4L) - plan to switch to PO lasix tomorrow Elevated troponins; NSTEMI vs. stress induced cardiomyopathy - [place] trop [place] 89.6[place] [address], and has since downtrended - no chest pain, no ST elevations or depression on EKGs - echo showed worsened EF to 40-45% w/ grade II diastolic dysfunction - discussed possibility of cath w/ patient; pt declining at this time - cardiology consulted; addition of metoprolol 25 mg daily, no ACEi d/t kidney, no statin d/t previous myopathy Leukocytosis - no signs of infection - most likely related to steroid use (40 mg daily) Acute on chronic mixed systolic and diastolic CHF - as above CKD (chronic kidney disease), stage IV- V - Cr 3.31 upon admission (improved since discharge) - pt was instructed to hold spironolactone for hyperkalemia upon discharge; continue to hold - Cr today 3.89 - continue to monitor in the setting of aggressive diuresis - nephrology consulted; continue prednisone, continue IV lasix, switch to PO tomorrow Hypercalcemia - multifactorial, especially related to kidney dysfunction and breast cancer w/ bone mets - prior concern for granulomatous disease; CT chest and CTAP neg - Ca upon admission 11.4; highest at 12.8, iCa 1.57 - Ca today 11.7 - continue to monitor Anemia - Hgb 9.8 upon admission; down to 7.8 this AM - pt received two 200 mg iron infusions during last admission - will resume iron infusions for a total of 5 days - continue to follow with nephrology for procrit injections outpatient Restless legs - pt may benefit from iron and/or ropinirole - pt to discuss w/ PCP Breast cancer w/ bone mets - follows with oncologist in [place]; continue to follow closely GERD - continue protonix daily MCKENZIE -Stable HTN - Stable Type 2 diabetes mellitus - pt is self administering home regimen of insulin - insulin provided by pt's significant other Morbid obesity with BMI 44 - outpatient discussion for weight management Dispo: PCU w/ tele DVT ppx: heparin previously ordered but pt refuses, AIDEN west applied Diet: heart healthy, low sodium diet Code: full Admission and Anticipated Discharge Date Admission Date: November 04, 2022 Supervising Physician Co-Signing Physician Notes Resident Physician Supervision Note: I independently interviewed and examined the patient and verified the barrett history and physical, reviewed labs and image studies and agree with resident findings and care plan. Subjective Pt is a 72 yo female with PMH of CKD, CHF, MCKENZIE, GERD, HTN, DM, HLD, and breast cx in current treatment presenting to the ER due to SOB. Pt was discharged 11/04/2022 after being treated w/ IVF for hypercalcemia and JEFFREY. Pt seen at bedside this AM. She is feel much better than yesterday. No respiratory distress. She denies new chest pain, SOB, or leg pains. Review of Systems Review of Systems: All systems reviewed & are unremarkable except as noted in HPI & below Physical Exam Constitutional: NAD. Vitals WNL. Still wearing 2 L NC. Eyes: no conjunctival abnormality Respiratory: CTA bilaterally. No rhonchi, wheezing, or crackles. Non labored breathing. Cardiovascular: RRR. No murmur noted. Bilateral non pitting edema L>R. Gastrointestinal (Abdomen): Nontender, nondistended. Skin: no rashes, warm and dry Psychiatric: Alert. Mood and affect congruent. Results & Data Results & Data ([facility]) Vital Signs (Past 12 Hours) Vital Signs Temp Pulse Pulse Resp BP Pulse Ox O2 Del Method 11/06/22 03:07 36.4 C L 67 20 146/63 H 99 Nasal Cannula 11/05/22 23:56 19 11/05/22 23:57 78 11/05/22 23:01 36.4 C L 71 22 153/70 H 96 BiPAP 11/05/22 22:38 BiPAP 11/05/22 20:44 76 21 96 11/05/22 19:44 36.6 C 78 22 153/74 H 98 Nasal Cannula O2 Flow Rate FiO2 11/06/22 03:07 3.0 11/05/22 23:56 25 11/05/22 23:57 11/05/22 23:01 11/05/22 22:38 25 11/05/22 20:44 25 11/05/22 19:44 3.0 Resident Activity Tracking Resident Involvement: Resident Care Provided Care Provided: Adult Hospital Medicine
[2022-11-06] MEDS ORDERED: IRON SUCROSE 200 MG in 0.9 % SODIUM CHLORIDE 100 ML IV ONE (08:00)
[2022-11-06] MEDS: INSULIN ASPART PER UNIT SC SCH ×4 (08:51→23:06)
[2022-11-06] MEDS: predniSONE 20 MG TAB PO SCH (09:01)
[2022-11-06] MEDS: VENLAFAXINE HCL XR 75 MG CAPXR PO SCH (09:01)
[2022-11-06] MEDS: allopurinoL 100 MG TAB PO SCH (09:01)
[2022-11-06] MEDS: HEPARIN SOD 5,000 UNIT/0.5 ML VIAL SQ SCH (09:02)
[2022-11-06] MEDS: FUROSEMIDE 40 MG/4 ML VIAL IV SCH ×2 (09:09→17:06)
[2022-11-06] MEDS: LANTUS PER UNIT CHARGE SQ SCH ×2 (09:10→23:06)
[2022-11-06] MEDS: PANTOprazole 40 MG TAB PO SCH (10:11)
--- NOTE | 2022-11-06 12:41 | Cardiology Progress Note ---
Date of Service November 06, 2022 Assessment & Plan (1) Acute on chronic combined systolic (congestive) and diastolic (congestive) heart failure: Plan: Volume status is improving. Net -3.2 L since admission. Her weight is down 2.7 pounds. Fortunately, renal function has remained stable. By physical exam she has significantly improved but is not yet euvolemic. Probably without significant ascites at this time. She may tolerate change to oral Lasix. Consider DC IV Lasix after tonight's dose and begin oral Lasix at 40 mg p.o. twice daily beginning tomorrow. We will of course need to continue to monitor renal function and electrolytes. The new systolic dysfunction is of unknown etiology but certainly at risk for underlying ischemic coronary disease or stress-induced cardiomyopathy. (2) Elevated troponin: Plan: Unclear if this is a type I or type II non-ST elevation ID. Patient is not interested in definitive evaluation by coronary angiography. Frankly this is not unreasonable since she does not have any anginal chest pain and she is at very high risk for contrast induced nephropathy resulting in hemodialysis. She is not interested in hemodialysis at this time, I suspect secondary to her metastatic breast cancer. If things change for her in the future and she would like to consider catheterization we can certainly discuss that at that time. Probably most prudent to presume underlying coronary disease and treat appropriately. Recommend low-dose aspirin, beta-he should be tolerated, avoid KODY inhibitor/ARB. For now, avoid statin but it seems that her prior st atin myopathy was isolated to a atorvastatin. She may tolerate pravastatin or Crestor in its place. (3) CKD (chronic kidney disease), stage III: Plan: Nephrology follows. Seems like her GFR is at the present indicative of stage IV chronic renal insufficiency. Her urine output is fairly good. We will avoid nephrotoxic agents. Further recommendations per nephrology. (4) HTN (hypertension): Plan: Blood pressure has remained above target. Her volume status would now allow for her to have low-dose heart failure indicated beta-he. We will begin metoprolol succinate ER 25 mg daily. Monitor for wheezing. Plan Continue diuresis to achieve euvolemia. Convert to oral medications. We will see tomorrow. Admission and Anticipated Discharge Date Admission Date: November 04, 2022 Subjective Patient doing fairly well at this time. She denies any chest pain. Shortness of breath continues to improve. She remains uninterested in cardiac catheterization. She continues to diurese well with IV Lasix. She voices no other complaints or concerns at this time. Review of Systems Review of Systems: Negative except as per HPI Physical Exam Constitutional: Awake alert oriented. Morbidly obese. Chronically ill. No acute distress Eyes: Anicteric Neck: Thick. No JVD Respiratory: Bibasilar dullness. Scattered crackles detention up. No wheezing or rhonchi. Fair air movement. Cardiovascular: Irregular rhythm with a normal rate. Monitor shows sinus rhythm with Mobitz 1 second-degree AV block. Occasional PVCs. Gastrointestinal (Abdomen): Obese. Soft. Musculoskeletal: Bilateral lower extremities with compression stockings. No significant edema. Neurologic: Cognition is intact. Speech is fluent. No focal deficits. Psychiatric: A+Ox3, euthymic affect Results & Data ([facility]) Vital Signs (Past 12 Hours) Vital Signs Temp Pulse Pulse Resp BP Pulse Ox O2 Del Method 11/06/22 08:00 69 11/06/22 08:00 Nasal Cannula 11/06/22 03:07 36.4 C L 67 20 146/63 H 99 Nasal Cannula O2 Flow Rate 11/06/22 08:00 11/06/22 08:00 2 11/06/22 03:07 3.0 PG Care Time/CCT Total # of Minutes Spent Total Time Spent with Patient: Total time spent is greater than 50% in coordination of care (as documented) at patient's floor/unit and/or counseling patient: Coding [place] [address] SUB INP/OBS CARE 2/35MIN Patient Type Established Diagnoses Acute on chronic combined systolic (congestive) and diastolic (congestive) heart failure I50.43 Elevated troponin R77.8 CKD (chronic kidney disease), stage III N18.30 HTN (hypertension) I10
--- NOTE | 2022-11-06 12:54 | Nephrology Consultation ---
Date of Consultation November 06, 2022 Assessment & Plan (1) Hypercalcemia: (2) Hyperphosphatemia: (3) Acute respiratory failure with hypoxia: (4) Chronic kidney disease, stage 4 (severe): (5) Iron deficiency anemia: (6) HTN (hypertension): (7) Breast cancer: Plan 72 y o f with Stage IV CKD, b/l cr 2.5 to 3.5, recent JEFFREY, resistant hypercalcemia requiring recent hospitalization, to IV fluid and started on prednisone. Admitted back to hospital after discharge with volume overload, bilateral pleural effusion, pulmonary vascular congestion and echo showing EF 40-45%. Creatinine staying relatively stable around 3.8-4, calcium staying around 11.5- 12. Clinically improved with improvement in respiratory status, has been having decent urine output with net negative more than 3 L on current dose of diuretics. -- Continue on Lasix 40 mg IV twice a day, consider switching orally if remains net negative -- monitor renal function and electrolytes closely, continue prednisone 40 mg daily for now --Avoid all NSAIDs, dose medications for EGFR less than 30, left arm nep hrology precaution. --Epogen 24962 units x 1 dose today ( Ok with oncology as per previous discussion) -- considering multiple risk factor for coronary artery disease and echo showing slight decrease in EF, agree with starting on carvedilol or metoprolol. Will follow. Thank you for allowing me to participate in your patient's care. It was a pleasure to see Pauline. History of Present Illness Reason for Consultation: Volume overload, Hypercalcemia, Advanced CKD. Attending Physician: Sallie Ortiz MD History of Present Illness Pauline Strauss is a 72-year-old female with past medical history significant for stage IV CKD with prior dialysis requiring JEFFREY, metastatic breast cancer, hypertension, dyslipidemia, GERD, admitted hospital with hypoxic respiratory failure and volume overload with acute congestive heart failure. nephrology consult was requested for management of hypercalcemia, advanced CKD with volume overload. EMR records are reviewed in detail during this visit. Pauline was recently admitted to the hospital on after outpatient lab showed JEFFREY and hypercalcemia, creatinine was 4.5 and calcium was 13.1. She was treated with IV fluid, continued on diuretics and started on prednisone 40 mg daily. Calcium improved to 10.9 and she was discharged on 11/04/22. She was discharged on her home diuretic regimen of Lasix 20 mg twice a day. However, within few hours after discharge she started having epigastric discomfort and shortness of breath and came back to ER. On arrival she was in hypoxic respiratory failure with oxygen saturation 88% on room air, chest x-ray showed bilateral pleural effusion and pulmonary vascular congestion. Troponin was noted to be elevated. Echo showed new decrease in EF to 40-45%. CT chest, abdomen and pelvis wo contrast on 11/05/22 showed left breast cancer with osteoblastic metastatic in cystic disease to thoracic, lumbar spine and left femur. she was started on Lasix 40 mg IV twice a day and responding nicely to diuretics with overall more than 3 L net negative since admission. Her respiratory status improved and overall she is feeling better. Stage IV CKD with prior dialysis requiring JEFFREY secondary to dense ATN in 2018. eventually kidney function recovered and creatinine was staying around 2.5-3. She was again admitted to hospital from 05/17/2022 to 05/27/2022 with JEFFREY in the setting of hypercalcemia. Renal imaging showed bilateral otherwise normal size kidney. has moderate degree proteinuria. Never smoker, lives with her spouse Adele. No f/h of CKD, ESRD. Diagnosed with metastatic breast cancer in July 2021, has been following with oncologist at [facility] center She was started on Ibrance on April 09 but it was discontinued as her renal function worsened while she was on it. In September 2022 she was started on Faslodex which she was getting 2 IVs every other week and now she is on once a month Since April 2022 she has been having resistant hypercalcemia, was getting Prolia once a week but calcium remained elevated. PTH has been low. 1, 25 dihydroxy vitamin-D and KODY level was elevated. Paraproteinemia workup was unremarkable. Overall feeling better this morning, shortness of breath much improved, denies any chest pain or tightness. Appetite has been decent. Decent urine output. Blood pressure remained well controlled. Allergies Allergy/AdvReac Type Severity Reaction Status Date / Time amoxicillin Allergy Severe LIPS Verified 11/04/22 20:53 SWELLED, "RED ALL OVER" doxycycline Allergy Severe LIPS Verified 11/04/22 20:53 SWELLED, "RED ALL OVER". cephalexin [From Keflex] Allergy Intermediate skin Verified 11/04/22 20:53 starts to peel off sulfamethoxazole Allergy Unknown Unknown Verified 11/04/22 20:53 [From Bactrim] trimethoprim [From Bactrim] Allergy Unknown Unknown Verified 11/04/22 20:53 atorvastatin AdvReac Intermediate Myalgia Verified 11/04/22 20:53 Home Medications Medication Instructions Recorded Confirmed Type promethazine 25 mg tablet 25 mg PO Q6H PRN nausea #30 tabs 08/17/19 11/04/22 Rx allopurinol 100 mg tablet 50 mg PO DAILY #45 tabs 11/17/21 11/04/22 Rx venlafaxine 75 mg capsule,extended 75 mg PO DAILY #90 caps 04/07/22 11/04/22 Rx release 24 hr tramadol 50 mg tablet 50 mg PO Q6 PRN Pain 05/19/22 11/04/22 History omega-3 fatty acids 1,000 mg 2,000 mg PO BID #360 caps 07/19/22 11/04/22 Rx capsule pen needle, diabetic 32 gauge x ##600 07/23/22 09/15/22 Rx " (UltiCare Pen Needle) clotrimazole-betamethasone 1 1 applic topical BID PRN Skin 11/02/22 11/04/22 History %-0.05 % topical cream Irritation denosumab 60 mg/mL subcutaneous 60 mg subcut WK #1 mL 11/02/22 11/04/22 Rx syringe (Prolia) epoetin akcey 40,000 unit/mL 40,000 unit subcut DIRECTED 11/02/22 11/04/22 History injection solution (Procrit) insulin aspart U-100 100 unit/mL 0 sliding scale dose subcut 11/02/22 11/04/22 History (3 mL) subcutaneous pen (Novolog DIRECTED FlexPen U-100 Insulin aspart) insulin glargine 100 unit/mL (3 22 unit subcut BID 11/02/22 11/04/22 History mL) subcutaneous pen (Lantus Solostar U-100 Insulin) furosemide 40 mg tablet 20 mg PO BID #28 tabs 11/04/22 11/04/22 Rx prednisone 20 mg tablet 40 mg PO DAILY 14 days #28 tabs 11/04/22 11/04/22 Rx Patient History Medical History (HFpEF) heart failure with preserved ejection fraction JEFFREY (acute kidney injury) post-operative 2018 - short term dialysis Anemia Breast cancer diagnosed 2020 Candidal intertrigo Chronic kidney disease, stage 4 (severe) Chronic kidney disease, stage III (moderate) Chronic stasis dermatitis Crystal arthropathy Dyslipidemia GERD (gastroesophageal reflux disease) HTN (hypertension) Hyperuricemia Iron deficiency anemia Mobitz type 1 second degree AV block MCKENZIE (nonalcoholic steatohepatitis) Seborrheic dermatitis Statin myopathy Type 2 diabetes mellitus Vitamin D deficiency Surgical History History of appendectomy History of tonsillectomy and adenoidectomy Humerus fracture surgical repair Hx of cholecystectomy Family History Father Depression Diabetes Mother Hypertension Kidney stones Gallbladder disease Denies family history of Ovarian cancer Prostate cancer Myocardial infarction Breast cancer Colorectal cancer Social History Smoking Status: Never smoker Second Hand Exposure: No; Do You Dip or Chew Tobacco: No; Hx Alcohol Use: No Hx Substance Use: No Preferred Language: Cambodian Communication Ability: Effective Visual Impairment: Limited Hearing Ability: Normal Attendant Sales Required: No Beliefs That Will Affect Care: None marital status: Current Living Situation: Spouse 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 Physical Exam Constitutional: WD/WN, vitals as above no acute distress Eyes: + anicteric sclerae Neck: normal visual inspection Respiratory: no respiratory distress Auscultation: + diminished lung sounds, + crackles and + rales; no wheezes Cardiovascular: Rate/Rhythm: regular rate and regular rhythm Heart Sounds: normal S1 and normal S2 Extremities: no edema Gastrointestinal (Abdomen): Inspection/Auscultation: abdomen normal to inspection Musculoskeletal: Extremities: extremities normal to inspection Skin: no rashes Neurologic: no focal motor deficits Psychiatric: Orientation: alert and oriented x 3 Affect: euthymic affect Results & Data ([facility]) Vital Signs (Past 12 Hours) Vital Signs Temp Pulse Pulse Resp BP Pulse Ox O2 Del Method 11/06/22 08:00 69 11/06/22 08:00 Nasal Cannula 11/06/22 03:07 36.4 C L 67 20 146/63 H 99 Nasal Cannula O2 Flow Rate 11/06/22 08:00 11/06/22 08:00 2 11/06/22 03:07 3.0 PG Care Time/CCT Total # of Minutes Spent Total Time Spent with Patient: Total time spent is greater than 50% in coordination of care (as documented) at patient's floor/unit and/or counseling patient: Coding Level of Care Code INP/OBS CONSULT LVL 5, 80 MIN Diagnoses Hypercalcemia E83.52 Hyperphosphatemia E83.39 Acute respiratory failure with hypoxia J96.01 Chronic kidney disease, stage 4 (severe) N18.4 Iron deficiency anemia D50.9 HTN (hypertension) I10 Breast cancer C50.912 Breast location: unspecified site of breast Estrogen receptor status: unspecified Laterality: left Patient sex: female (1) Breast cancer Breast location: unspecified site of breast Estrogen receptor status: unspecified Laterality: left Patient sex: female Qualified Code(s): C50.912 - Malignant neoplasm of unspecified site of left female breast
[2022-11-06] MEDS ORDERED: EPOETIN ALFA 20,000 UNITS/ML VIAL SQ ONE (13:30)
[2022-11-06] MEDS ORDERED: FUROSEMIDE 40 MG TAB PO SCH (17:00)
--- NOTE | 2022-11-07 07:40 | Hospitalist Progress Note ---
Date of Service November 07, 2022 Assessment & Plan (1) Acute respiratory failure with hypoxia: (2) Elevated troponin: (3) Acute kidney injury superimposed on CKD: (4) Anemia: (5) MCKENZIE (nonalcoholic steatohepatitis): (6) GERD (gastroesophageal reflux disease): (7) HTN (hypertension): (8) Type 2 diabetes mellitus: (9) Hypercalcemia: Plan Pt is a 72 yo female with PMH of CKD, CHF, MCKENZIE, GERD, HTN, DM, HLD, and breast cx in current treatment presenting to the ER due to SOB. Pt was discharged 11/04/2022 after being treated w/ IVF for hypercalcemia and JEFFREY. Acute respiratory failure with hypoxia secondary to fluid overload - pt requiring BIPAP upon admission, now satting 90s on RA - CXR showed moderate pulmonary edema and bilateral pleural effusions - lab work significant for BNP in 800s upon admission - continue diuresis with lasix 40 mg PO BID; monitor intake and output closely (pt so far -7.3L) Elevated troponins; NSTEMI vs. stress induced cardiomyopathy - initial trop [place] 89[place] [address], and has since downtrended - no chest pain, no ST elevations or depression on EKGs - echo showed worsened EF to 40-45% w/ grade II diastolic dysfunction - discussed possibility of cath w/ patient; pt declining at this time - cardiology consulted; addition of metoprolol 25 mg daily, no ACEi d/t kidney, no atorvastatin d/t previous myopathy - may consider pravastatin or rosuvastatin Leukocytosis - no signs of infection - most likely related to steroid use (40 mg daily) Acute on chronic mixed systolic and diastolic CHF - as above CKD (chronic kidney disease), stage IV- V - Cr 3.31 upon admission (improved since discharge 11/04) - pt was instructed to hold spironolactone for hyperkalemia upon discharge; continue to hold - Cr today 3.7 - continue to monitor in the setting of aggressive diuresis - nephrology consulted; continue prednisone, PO lasix Hypercalcemia - multifactorial, especially related to kidney dysfunction and breast cancer w/ bone mets - prior concern for granulomatous disease; CT chest and CTAP neg - Ca upon admission 11.4; highest at 12.8, iCa 1.57 - Ca today 11.1 - continue to monitor Anemia - Hgb stable - pt received a total of five 200 mg iron infusions, epogen 11/06 - continue to follow with nephrology for procrit injections outpatient Restless legs - pt may benefit from iron and/or ropinirole - pt to discuss w/ PCP Breast cancer w/ bone mets - follows with oncologist in [place]; continue to follow closely GERD - continue protonix daily MCKENZIE -Stable HTN - Stable Type 2 diabetes mellitus - pt is self administering home regimen of insulin - insulin provided by pt's significant other from home Morbid obesity with BMI 44 - outpatient discussion for weight management Dispo: PCU w/ tele DVT ppx: heparin previously ordered but pt refuses, AIDEN west applied Diet: heart healthy, low sodium diet Code: full Admission and Anticipated Discharge Date Admission Date: November 04, 2022 Supervising Physician Co-Signing Physician Notes Resident Physician Supervision Note: I independently interviewed and examined the patient and verified the barrett history and physical, reviewed labs and image studies and agree with resident findings and care plan. Subjective Pt is a 72 yo female with PMH of CKD, CHF, MCKENZIE, GERD, HTN, DM, HLD, and breast cx in current treatment presenting to the ER due to SOB. Pt was discharged 11/04/2022 after being treated w/ IVF for hypercalcemia and JEFFREY. Pt seen at bedside this AM. Feeling well. No SOB, no O2 requirement. Pt denies new SOB, chest pain, abdominal pains, or leg pains. Review of Systems Review of Systems: All systems reviewed & are unremarkable except as noted in HPI & below Physical Exam Constitutional: NAD. Vitals WNL. Eyes: no conjunctival abnormality Respiratory: CTA bilaterally. No rhonchi, wheezing, or crackles. Non labored breathing. Cardiovascular: RRR. No murmur noted. No LE edema. Skin: no rashes, warm and dry Psychiatric: Alert. Mood and affect congruent. Results & Data Results & Data ([facility]) Vital Signs (Past 12 Hours) Vital Signs Temp Pulse Pulse Resp BP Pulse Ox O2 Del Method 11/07/22 07:20 57 L 11/07/22 03:25 36.6 C 60 20 137/67 95 Room Air 11/06/22 23:40 72 11/06/22 20:00 Room Air 11/06/22 22:39 36.6 C 68 18 159/70 H 94 Room Air Resident Activity Tracking Resident Involvement: Resident Care Provided Care Provided: Adult [facility] Medicine
[2022-11-07 08:13] LABS: Hematocrit (blood only) 25.2 % (37.0-47.0); Hemoglobin 8.3 g/dl (12.0-16.0); Mean Corpuscular Hemoglobin 32.9 pg (25.0-34.0); Mean Corpuscular Hgb Conc 32.9 g/dL (32.0-36.0); Mean Platelet Volume 10.5 fL (9.4-12.4); Nucleated RBC # (auto) 0.11 K/uL (0-0.12); Nucleated RBC % (auto) 0.9 %; Platelet Count 268 K/uL (130-400); RDW Coefficient of Variation 14.2 % (11.5-14.5); Red Blood Count 2.52 M/uL (4.20-5.40); White Blood Count 12.83 K/ul (4.8-10.8)
[2022-11-07 08:26] LABS: Albumin Level 3.4 gm/dl (3.4-5.0); Calcium 11.1 mg/dl (8.5-10.1); Creatinine Clr Calc Pharmacy 15.3 ml/min; Est GFR (African American) 13.2 ml/min; Est GFR (Non-African American) 11.4 ml/min; Magnesium 2.4 mg/dl (1.7-2.4); Phosphorus 5.1 mg/dl (2.5-4.9); Potassium 3.9 mmol/L (3.5-5.1)
[2022-11-07] MEDS: VENLAFAXINE HCL XR 75 MG CAPXR PO SCH (08:31)
[2022-11-07] MEDS: FUROSEMIDE 40 MG/4 ML VIAL IV SCH (08:31)
[2022-11-07] MEDS: allopurinoL 100 MG TAB PO SCH (08:31)
[2022-11-07] MEDS: METOPROLOL SUCC 25MG EXT REL TAB PO SCH (08:31)
[2022-11-07] MEDS: PANTOprazole 40 MG TAB PO SCH (08:31)
[2022-11-07] MEDS: predniSONE 20 MG TAB PO SCH (08:31)
[2022-11-07] MEDS ORDERED: IRON SUCROSE 200 MG in 0.9 % SODIUM CHLORIDE 100 ML IV ONE (10:00)
--- NOTE | 2022-11-07 11:37 | Nephrology Progress Note ---
Date of Service November 07, 2022 Assessment & Plan (1) Hypercalcemia: (2) Hyperphosphatemia: (3) Acute respiratory failure with hypoxia: (4) Chronic kidney disease, stage 4 (severe): (5) Iron deficiency anemia: (6) HTN (hypertension): (7) Breast cancer: Plan 72 y o f with Stage IV CKD, b/l cr 2.5 to 3.5, recent JEFFREY, resistant hypercalcemia requiring recent hospitalization, to IV fluid and started on prednisone. Admitted back to hospital after discharge with volume overload, bilateral pleural effusion, pulmonary vascular congestion and echo showing EF 40-45%. Creatinine staying relatively stable around 3.8-4, calcium 11.1 Clinically improved with improvement in respiratory status, has been having decent urine output with net negative more than 3 L on current dose of diuretics. -- switch Lasix to 40 mg orally twice a day, aim for net negative -- monitor renal function and electrolytes closely, continue prednisone 40 mg daily for now --Avoid all NSAIDs, dose medications for EGFR less than 30, left arm nephrology precaution. --Epogen 30126 units x 1 dose given yesterday. Will follow. Admission and Anticipated Discharge Date Admission Date: November 04, 2022 Subjective Pauline was anastacio and evaluated this am. Overall doing well, denies shortness of breath, has been off of nasal cannula oxygen. Continues to have decent urine output with net negative more than 3 L over last 24 hours. Blood pressure well controlled. Renal function staying relatively stable, acceptable electrolytes. Review of Systems Review of Systems: Detailed review of system was otherwise unremarkable except mentioned above. Physical Exam Constitutional: WD/WN, vitals as above no acute distress Respiratory: no respiratory distress Auscultation: + diminished lung sounds, + crackles and + rales Cardiovascular: RRR, no murmur, no edema Skin: no rashes Neurologic: no focal motor deficits Psychiatric: Orientation: alert and oriented x 3 Affect: euthymic affect Results & Data ([facility]) Vital Signs (Past 12 Hours) Vital Signs Temp Pulse Pulse Resp BP Pulse Ox O2 Del Method 11/07/22 08:32 36.7 C 68 18 145/69 H 96 Room Air 11/07/22 07:20 57 L 11/07/22 03:25 36.6 C 60 20 137/67 95 Room Air 02/11/23 23:40 72 PG Care Time/CCT Total # of Minutes Spent Total Time Spent with Patient: Total time spent is greater than 50% in coordination of care (as documented) at patient's floor/unit and/or counseling patient: Coding Level of Care Code 13345 SUB INP/OBS CARE 3/50MIN Diagnoses Hypercalcemia E83.52 Hyperphosphatemia E83.39 Acute respiratory failure with hypoxia J96.01 Chronic kidney disease, stage 4 (severe) N18.4 Iron deficiency anemia D50.9 HTN (hypertension) I10 Breast cancer C50.912 Breast location: unspecified site of breast Estrogen receptor status: unspecified Laterality: left Patient sex: female (1) Breast cancer Breast location: unspecified site of breast Estrogen receptor status: unspecified Laterality: left Patient sex: female Qualified Code(s): C50.912 - Malignant neoplasm of unspecified site of left female breast
[2022-11-07] MEDS: FUROSEMIDE 40 MG TAB PO SCH (17:01)
[2022-11-08 06:16] LABS: Hematocrit (blood only) 25.6 % (37.0-47.0); Hemoglobin 8.5 g/dl (12.0-16.0); Mean Corpuscular Hemoglobin 33.3 pg (25.0-34.0); Mean Corpuscular Hgb Conc 33.2 g/dL (32.0-36.0); Mean Corpuscular Volume 100.4 fL (80.0-100.0); Mean Platelet Volume 10.4 fL (9.4-12.4); Nucleated RBC # (auto) 0.21 K/uL (0-0.12); Nucleated RBC % (auto) 1.4 %; Platelet Count 272 K/uL (130-400); RDW Coefficient of Variation 14.3 % (11.5-14.5); RDW Standard Deviation 51.8 fL (36.4-46.3); Red Blood Count 2.55 M/uL (4.20-5.40); White Blood Count 14.56 K/ul (4.8-10.8)
[2022-11-08 06:26] LABS: Albumin Level 3.6 gm/dl (3.4-5.0); BUN Creatinine Ratio 27.8 (10-20); Calcium 10.9 mg/dl (8.5-10.1); Creatinine Clr Calc Pharmacy 15.2 ml/min; Est GFR (Non-African American) 11.3 ml/min; Phosphorus 4.8 mg/dl (2.5-4.9); Potassium 3.7 mmol/L (3.5-5.1)
[2022-11-08] MEDS: PANTOprazole 40 MG TAB PO SCH (09:03)
[2022-11-08] MEDS: FUROSEMIDE 40 MG TAB PO SCH ×2 (09:03→17:10)
[2022-11-08] MEDS: predniSONE 20 MG TAB PO SCH (09:03)
[2022-11-08] MEDS: VENLAFAXINE HCL XR 75 MG CAPXR PO SCH (09:03)
[2022-11-08] MEDS: METOPROLOL SUCC 25MG EXT REL TAB PO SCH (09:03)
[2022-11-08] MEDS: allopurinoL 100 MG TAB PO SCH (09:04)
--- NOTE | 2022-11-08 10:44 | Nephrology Progress Note ---
Date of Service November 08, 2022 Assessment & Plan (1) Hypercalcemia: (2) Hyperphosphatemia: (3) Acute respiratory failure with hypoxia: (4) Chronic kidney disease, stage 4 (severe): (5) Iron deficiency anemia: (6) HTN (hypertension): (7) Breast cancer: Plan 72 y o f with Stage IV CKD, b/l cr 2.5 to 3.5, recent JEFFREY, resistant hypercalcemia requiring recent hospitalization, to IV fluid and started on prednisone. Admitted back to hospital after discharge with volume overload, bilateral pleural effusion, pulmonary vascular congestion and echo showing EF 40-45%. Creatinine staying relatively stable around 3.8-4, calcium 10.9. Clinically improved with improvement in respiratory status, has been having decent urine output with net negative more than 3 L on current dose of diuretics. -- continue on Lasix 40 mg orally twice a day, aim for net negative. CXR to evaluate b/l pl effusion prior to decision about DC as on exam still seems significant although clinically doing better. --continue prednisone 40 mg daily for now, if discharged this afternoon, plan for lab on and then Tuesday --Avoid all NSAIDs, dose medications for EGFR less than 30, left arm nephrology precaution. --had detailed discussion with Pauline morenotessa and explained that she has mul tiple risk factor worsening renal function in next few months and advised to have discussion and make decision about [facility] in future. She would be a great candidate for home dialysis including PD and home hemo but regardless she will need AVF if she decides to consider [facility] in future as she will not be a candidate for transplant. Will follow. Admission and Anticipated Discharge Date Admission Date: November 04, 2022 Subjective Pauline was seen and evaluated this am. Overall doing well, no shortness of breath, chest pressure. Continues to have decent urine output with net negative more than 2 L over last 24 hours on lasix po. Blood pressure well controlled. Renal function staying relatively stable, acceptable electrolytes. Review of Systems Review of Systems: Detailed review of system was otherwise unremarkable except mentioned above. Physical Exam Constitutional: WD/WN, vitals as above no acute distress Respiratory: no respiratory distress Auscultation: + diminished lung sounds, + crackles and + rales Cardiovascular: RRR, no murmur, no edema Skin: no rashes Neurologic: no focal motor deficits Psychiatric: Orientation: alert and oriented x 3 Affect: euthymic affect Results & Data ([facility]) Vital Signs (Past 12 Hours) Vital Signs Temp Pulse Resp BP Pulse Ox O2 Del Method 11/08/22 07:31 36.5 C 69 18 175/78 H 92 Room Air 11/08/22 03:37 36.3 C L 64 20 150/78 H 96 Room Air 11/07/22 23:46 36.5 C 63 18 145/69 H 94 Room Air PG Care Time/CCT Total # of Minutes Spent Total Time Spent with Patient: Total time spent is greater than 50% in coordination of care (as documented) at patient's floor/unit and/or counseling patient: Coding Level of Care Code 82739 SUB INP/OBS CARE 3/50MIN Diagnoses Hypercalcemia E83.52 Hyperphosphatemia E83.39 Acute respiratory failure with hypoxia J96.01 Chronic kidney disease, stage 4 (severe) N18.4 Iron deficiency anemia D50.9 HTN (hypertension) I10 Breast cancer C50.912 Breast location: unspecified site of breast Estrogen receptor status: unspecified Laterality: left Patient sex: female (1) Breast cancer Breast location: unspecified site of breast Estrogen receptor status: unspecified Laterality: left Patient sex: female Qualified Code(s): C50.912 - Malignant neoplasm of unspecified site of left female breast
--- NOTE | 2022-11-08 14:25 | XRay Report ---
XR chest 1V portable CLINICAL HISTORY: f/u pleural effusion, pulmonary edema TECHNIQUE: Single frontal radiograph of the chest was obtained. Comparison: Comparison is made to chest radiograph 11/04/2022 FINDINGS: The humeral fixation hardware is seen. Calcified aortic knob is seen. Mild pulmonary edema is signifi cantly decreased from prior exam. Bilateral pleural effusions are significantly decreased from prior exam. IMPRESSION: Bilateral pleural effusions are significantly decreased from prior exam. Previously noted pulmonary e gina has also decreased. ACT 112: Negative or not required by law. Electronically signed by: Zack Otoole M.D. 11/08/2022 2:23 PM
--- NOTE | 2022-11-08 14:36 | Discharge Summary ---
Date of Service November 08, 2022 Admission HPI Per Admitting Provider Pauline is a 72 year old female with a PMH significant for Breast cancer with metastases to the bone, followed at [facility] [place], [place] and currently receiving Ibrance , anemia, CKD stage 4, hypercalcemia, DM II, HFpEF, MCKENZIE, GERD, HTN, dyslipidemia, and Mobitz type 1 AV block who presented to the [facility] ED on 11/04/22 due to chest pain and SOB. In the ED the patient was found to be afebrile, hemodynamically stable, and hypoxic at 88% on RA. Labs were significant for a leukocytosis of 17 with left shift of 14, stable Hgb at 9.0, stable platelets, improving cr at 3.31 (down from 3.50 as of 3.50), glucose of 263, corrected sodium of 133, calcium of 11.4 (up from 10.9 earlier today), AG of 12 with bicarb of 18, alk phos of 113, BNP of 883, initial high sensitivity trop, and covid negative. Chest xray was read as "Moderate pulmonary edema and small bilateral pleural effusions which is similar to the prior study.". Prior to admission the patient was given 324 mg of aspirin, 25 mcg IV fentanyl, 40 mg IV lasix, and 0.4 SL Nitro. The patient was just discharged earlier today after being admitted on 11/02/22 due to JEFFREY on CKD, hypercalcemia of 13, hyperkalemia, hyperphosphatemia, and multifactorial anemia. Nephrology was consulted and recommended IV fluids. She was continued on NSS at 100mL/hr and was continue on her home dose of 20 mg PO lasix. Per the discharge instructions, she was encouraged to drink copious amoun ts of water and continue her BID Po lasix on discharge. She was started and discharged on 40 mg PO prednisone by Nephrology due to concerns of a possible granulomatous disease. She was found to have low iron levels and received 2 IV iron infusions while admitted. At the time of the exam the patient was in respiratory distress, sitting in a tripod position and with significant accessory muscle use and abdominal breathing. She states that she is having difficulty breathing, which started around 5 pm. Her daughter picked her up from the hospital around 1pm and they drove to [place] to look at some property. Her daughter noticed that the patient looked uncomfortable and the patient told her she was having difficultly breathing. They subsequently drove back to [facility] as they thought she received great care here. She denies recent fevers, chills, chest pain, nausea, vomiting, diarrhea, dysuria, hematuria and recent falls. She is experiencing some epigastric discomfort and states that she started to develop some left arm pain after her IV was placed in her left hand. She denies any pain in her neck, jaw, or back. She feels as though her lower extremities have been more swollen. Please refer to Dr. Elmore's attestation for any changes to the treatment plan. Admission Exam Per Admitting Provider Physical Exam: General:In acute distress, stated age, she does appear ill HEENT:Normocephalic, atraumatic, no scleral icterus, patient is blind in the right eye put the left pupil is round and reactive to light, moist mucus membranes, trachea midline, no thyromegaly Chest/Pulm:In respiratory distress, symmetrical chest expansion, expiratory wheezing noted throughout Cardiac:RRR, no murmurs noted Abdomen:Negative for ascites and bruising, normoactive bowel sounds, soft, non-tender to palpation throughout Musculoskeletal:Symmetrical and without signs of acute trauma, upper and lower extremities with full ROM, no atrophy, spasticity, or flaccidity Extremities:Radial, dorsalis pedis, and posterior tibial pulses are intact and symmetrical, 2+ edema noted in the BL LE's Skin:Warm, dry, no rashes , lesions, or scars noted Neuro:Alert and oriented to person, place, month, year, and president, no focal defects,no tremors noted Psych:In acute distress, but cooperative during the exam Principal Diagnosis acute hypoxic respiratory failure secondary to acute CHF exacerbation Discharge Exam Constitutional NAD. Vitals WNL. Eyes no conjunctival abnormality Respiratory CTA bilaterally. No rhonchi, wheezing, or crackles. Non labored breathing. Cardiovascular RRR. No murmur noted. Minimal edema in bilateral lower extremities L>R. Gastrointestinal (Abdomen) +BS. Soft, nontender, nondistended Psychiatric Alert. Mood and affect congruent. Discharge Data Allergies Allergy/AdvReac Type Severity Reaction Status Date / Time amoxicillin Allergy Severe LIPS Verified 11/04/22 20:53 SWELLED, "RED ALL OVER" doxycycline Allergy Severe LIPS Verified 11/04/22 20:53 SWELLED, "RED ALL OVER". cephalexin [From Keflex] Allergy Intermediate skin Verified 11/04/22 20:53 starts to peel off sulfamethoxazole Allergy Unknown Unknown Verified 11/04/22 20:53 [From Bactrim] trimethoprim [From Bactrim] Allergy Unknown Unknown Verified 11/04/22 20:53 atorvastatin AdvReac Intermediate Myalgia Verified 11/04/22 20:53 Consultations 11/04/22 20:48 ED Decision to Admit Stat 11/05/22 03:12 Consult Cardiology Routine 11/06/22 11:33 Consult Nephrology Routine Ordered Studies 11/05/22 14:40 CT Abd and Pelvis [CT abd pelvis wo con] Routine CT chest diagnostic wo con Routine Chest X-Ray 11/04/22 18:44 XR chest 1V portable HISTORY: Chest pain, nonspecific COMPARISON: Chest 05/21/2022. FINDINGS: No pneumothorax. The heart remains enlarged. Moderate pulmonary edema and small bilateral pleural effusions persist. Postoperative changes again noted within the right humerus. IMPRESSION: Moderate pulmonary edema and small bilateral pleural effusions which is similar to the prior study. ACT 112: Negative or not required by law. Electronically signed by: Duran Adhikari M.D. 11/04/2022 8:39 PM Abdomen/Pelvis CT 11/05/22 14:[address] WITHOUT CONTRAST CT DOSE: HISTORY: Generalized abdominal pain. TECHNIQUE: Multiaxial CT images of the abdomen and pelvis were performed without contrast. A dose lowering technique was utilized adhering to the principles of ALARA. COMPARISON STUDY: Abdomen and pelvis CT 01/31/2018. FINDINGS: The lung bases will be reported on the same day chest CT. A 4 cm left breast mass is again noted. No pneumoperitoneum. No pneumatosis. There are few scattered osteoblastic lesions seen within the proximal left femur, lower thoracic, and lumbar spine. These are new from the prior study. Dominant lesion within the L1 vertebral body measures 2 cm. These are highly suspicious for osteoblastic metastatic disease. There are old left-sided transverse process fractures. Tiny fat-containing umbilical hernia. Mild body wall edema is noted. Bilateral pleural effusions. Heterogeneous appearance to the liver which could be due to overlapping artifact from the patient's arms. Prior cholecystectomy. The spleen, pancreas, and adrenal glands unremarkable. No hydronephrosis. Bilateral perinephric edema is noted. There is mild periportal and retroperitoneal lymphadenopathy. Dominant retroperitoneal lymph node measures 12 mm. Small amount of ascites is identified. The bladder is unremarkable. There is calcified uterine fibroid. Suboptimal evaluation for bowel pathology due to the lack of intravenous and oral contrast. However, there is no definite bowel wall thickening or obstruction. IMPRESSION: 1. Redemonstration of a 4 cm left breast mass. 2. There are few scattered osteoblastic lesions within the thoracic spine, lumbar spine, and left femur. These are highly suspicious for osteoblastic metastatic disease. Follow-up nuclear medicine bone scan can be performed for confirmation. 3. Heterogeneous appearance to the liver which may be due to artifact from the patient's overlapping arms. Follow-up ultrasound recommended to exclude the possibility of underlying hepatic lesions. 4. Bilateral pleural effusions. 5. Small amount of ascites. 6. No definite bowel wall thickening or obstruction. 7. Mild retroperitoneal and periportal lymphadenopathy. ACT 112: Negative or not required by law. Electronically signed by: Duran Adhikari M.D. 11/05/2022 4:[address] 11/05/22 14:40 CT chest diagnostic wo con CT DOSE: 2822.11 mGy.cm HISTORY: Shortness of breath. possible granulomatous disease TECHNIQUE: Multiaxial CT images of the chest were performed without contrast. A dose lowering technique was utilized adhering to the principles of ALARA. COMPARISON: None. FINDINGS: Prior internal fixation of an old, healed right humeral fracture. Mild motion artifact. No acute fractures identified within the chest. No pneumothorax . The central airways are patent. There are a few partially opacified distal right lower lobe bronchi. There is diffuse interlobular septal thickening consistent with moderate pulmonary edema. Patchy bilateral lower lobe airspace opacities are nonspecific but favor atelectasis from the pleural effusions. Moderate right and small left pleural effusions are noted. There is a 4 cm irregular masslike density within the upper left breast. This was described on a prior mammogram from 06/18/2021. No axillary, mediastinal, or hilar lymphadenopathy. The heart is mildly enlarged. Severe coronary artery and mitral annulus calcifications. Normal esophagus. Normal caliber thoracic aorta. No pericardial effusion. The abdominal structures will be reported on the same day abdomen and pelvis CT. IMPRESSION: 1. Moderate pulmonary edema with bilateral pleural effusions. 2. Redemonstration of a 4 cm left breast masslike density. This was described on a prior mammogram/ultrasound. Follow up recommended at a dedicated breast cancer Center. 3. The patchy bilateral lower lobe airspace opacities are nonspecific but favor atelectasis. A pneumonia could also have a similar appearance. ACT 112: Positive. There are findings on this exam that require communication between the performing entity and the patient following Patient Test Result Information Act ([place] Act 112) guidelines. Electronically signed by: Duran Adhikari M.D. 11/05/2022 3:52 PM Chest X-Ray 11/08/22 09:53 XR chest 1V portable CLINICAL HISTORY: f/u pleural effusion, pulmonary edema TECHNIQUE: Single frontal radiograph of the chest was obtained. Comparison: Comparison is made to chest radiograph 11/04/2022 FINDINGS: The humeral fixation hardware is seen. Calcified aortic knob is seen. Mild pulmonary edema is significantly decreased from prior exam. Bilateral pleural effusions are significantly decreased from prior exam. IMPRESSION: Bilateral pleural effusions are significantly decreased from prior exam. Previously noted pulmonary edema has also decreased. ACT 112: Negative or not required by law. Electronically signed by: Zack Otoole M.D. 11/08/2022 2:23 PM Hospital Course (1) Acute respiratory failure with hypoxia: (2) Elevated troponin: (3) Acute kidney injury superimposed on CKD: (4) Anemia: (5) MCKENZIE (nonalcoholic steatohepatitis): (6) GERD (gastroesophageal reflux disease): (7) HTN (hypertension): (8) Type 2 diabetes mellitus: (9) Hypercalcemia: Plan Pt is a 72 yo female with PMH of CKD, CHF, MCKENZIE, GERD, HTN, DM, HLD, and breast cx in current treatment presenting to the ER due to SOB. Pt was discharged 11/04/2022 after being treated w/ IVF for hypercalcemia and JEFFREY. Acute respiratory failure with hypoxia secondary to fluid overload - pt requiring BIPAP upon admission, d/c on RA - CXR upon admission showed moderate pulmonary edema and bilateral pleural effusions; CXR day of discharge showed significant improvement - lab work significant for BNP in 800s upon admission - pt diuresed with IV and oral lasix for a total output of 11 L - pt d/c on 40 mg lasix BID Elevated troponins; NSTEMI vs. stress induced cardiomyopathy - [place] trop [place] 89[place] [address], and has since downtrended - no chest pain, no ST elevations or depression on EKGs - echo showed worsened EF to 40-45% w/ grade II diastolic dysfunction - discussed possibility of cath w/ patient; pt deferring at this time - cardiology consulted; addition of metoprolol 25 mg daily to be continued as outpatient, no ACEi d/t kidney, no atorvastatin d/t previous myopathy - may consider pravastatin or rosuvastatin Leukocytosis - no signs of infection - most likely related to steroid use (40 mg daily) Acute on chronic mixed systolic and diastolic CHF - as above CKD (chronic kidney disease), stage IV- V - Cr 3.31 upon admission (improved since discharge 11/04) - pt was instructed to hold spironolactone for hyperkalemia upon discharge; continue to hold upon d/c - Cr upon d/c 3.74 - nephrology consulted; continue prednisone, PO lasix 40 mg BID w/ repeat lab work 11/11 and 11/15 Hypercalcemia - multifactorial, especially related to kidney dysfunction and breast cancer w/ bone mets - prior concern for granulomatous disease; CT chest and CTAP neg - Ca upon admission 11.4; highest at 12.8, iCa 1.57 - Ca upon d/c 10.9 - repeat lab work as above Anemia - Hgb stable - pt received a total of five 200 mg iron infusions, epogen 11/06 - continue to follow with nephrology for procrit injections outpatient Restless legs - pt may benefit from iron and/or ropinirole - pt to discuss w/ PCP Breast cancer w/ bone mets - follows with oncologist in [place]; continue to follow closely - pt given disk w/ CT scans of chest and A/P to take to [facility] [place] -Stable HTN - Stable Type 2 diabetes mellitus - last A1c 03/11/22 7.3 - continue home regimen - recommend checking A1c as outpatient Morbid obesity with BMI 44 - outpatient discussion for weight management Dispo: home DVT ppx: heparin previously ordered but pt refuses, AIDEN west applied Diet: heart healthy, low sodium diet Code: full Total Time Total Time Spent Total Time Spent (In Minutes): as per attending attestation Discharge Plan Discharge Items Patient Disposition: Home - Self-Care Reason For Visit: CHEST PAIN, TROUBLE BREATHING,D/C TODAY Discharge Diagnosis: acute hypoxic respiratory failure due to acute CHF exacerbation Activity: Resume your previous activity Non-emergency contact: Primary Care Provider, Business Process Manager and Oncologist Call non-emergency contact if: you have any medication questions and your symptoms worsen Follow-up/Referrals: Corinne Varner MD [Physician] - 11/16/22 10:40 am (f/u 1-2 weeks after discharge, repeat lab work) Pat Alejandre MD [Primary Care Provider] - 11/12/22 2:00 pm (PCP FOLLOWUP 11/12/22 @2PM) Diet: Carb Consistent or DM2 and Low Sodium (2gm) Ambulatory Orders: Basic Metabolic Panel (Routine) Timeframe: 20221115 Location: Determined by Patient Ordered By: Fabiola Bentley Basic Metabolic Panel (Routine) Timeframe: 20221111 Location: Determined by Patient Ordered By: Fabiola Bentley Complete Blood Count no Diff (Timed) Timeframe: 20221115 Location: Determined by Patient Ordered By: Fabiola Bentley Complete Blood Count no Diff (Timed) Timeframe: 20221111 Location: Determined by Patient Ordered By: Fabiola Bentley Addtl Attending Provider Instructions: You were admitted to the hospital for symptoms of fluid overload (mainly feeling short of breath) after a recent hospital stay where you were given fluids. A chest xray upon admission showed a moderate amount of fluid within your lungs. You were treated with supplemental oxygen as you needed it and increased doses of diuretics (lasix). In total, your urine output was almost 11 L. Throughout your hospital stay, your kidney function also improved/remained stable and your calcium improved. Your creatinine upon discharge was 3.74. Your calcium was 10.9. Upon discharge, you were not requiring supplemental oxygen. Chest xray the day of discharge showed significant improvement in the amount of fluid in your lungs. A discharge summary will be sent to your primary care physician to ensure c ontinuity of care. Please bring this discharge summary with you to your next office appointment so that your provider can review it at that time. Medications: Your medication list has been reviewed and reconciled upon discharge to ensure accuracy and continuity of care. An updated list of all your medications is included with your hospital discharge paperwork. Please review this list closely and make note of any changes to your medications. - Your lasix has been increased to 40 mg twice per day. - Metoprolol was sent to your pharmacy. This is to be taken once per day in the morning. - Otherwise, continue your medications as before your hospitalization. Follow up appointments: - You should get lab work done 11/11 and 11/15. This will look at your electrolytes, creatinine, and blood counts. - You have follow up appointments scheduled with your PCP and nephrology. Make sure to keep these appointments. - You should follow up with your oncologist as already scheduled. Make sure to take your disk with your recent CT scans to show them. - Keep all of your follow up appointments as already scheduled. If you cannot make an appointment, notify your provider. CONTACT YOUR PRIMARY CARE PROVIDER if you experience any of the following: - Increased fluid in your legs or trouble breathing - Difficulty following your treatment plan - Difficulty taking any of your medications CALL 911 OR GO TO THE EMERGENCY DEPARTMENT if you experience any of the following: - Sudden, severe abdominal pain or nausea/vomiting - Severe chest pain or chest pain that radiates to your jaw or arm - Sudden, severe shortness of breath or difficulty breathing Pending Studies at Discharge: No Stand-Alone Forms: My [facility] [employer], Smoking Cessation Medications and DC Order Prescriptions: New metoprolol succinate 25 mg Tablet Extended Release 24 Hr 25 mg PO QAM Qty: 30 1RF Continued allopurinol 100 mg tablet 50 mg PO DAILY Qty: 45 3RF venlafaxine 75 mg capsule,extended release 24hr 75 mg PO DAILY Qty: 90 3RF omega-3 fatty acids 1,000 mg capsule 2,000 mg PO BID Qty: 360 3RF (DME) pen needle, diabetic [UltiCare Pen Needle] 32 gauge x 5/32" needle See Rx Instructions .ROUTE .COMPLEX Qty: 600 5RF Dose Instruction: USE 10 TIMES DAILY DIRECTED Rx Instructions: USE 10 TIMES DAILY DX E11.9 DIRECTED Prolia 60 mg/mL syringe 60 mg subcut WK Qty: 1 0RF Rx Instructions: TAKES ON TUESDAYS. 60 mg subcutaneously weekly as needed for hypercalcemia; promethazine 25 mg tablet 25 mg PO Q6H PRN (Reason: nausea) Qty: 30 5RF tramadol 50 mg tablet 50 mg PO Q6 PRN (Reason: Pain) Procrit 40,000 unit/mL solution 40,000 unit subcut DIRECTED Rx Instructions: Inject 40,000 units SubQ once a month and hold if Hemoglobin is greater than or equal to 11. clotrimazole-betamethasone 1-0.05 % cream 1 applic topical BID PRN (Reason: Skin Irritation) insulin aspart U-100 [Novolog FlexPen U-100 Insulin] 100 unit/mL (3 mL) insulin pen 0 sliding scale dose SQ DIRECTED MDD 225 units Rx Instructions: Per daughter carb ratio 1:2; Correction Factor 1:18 for BG > 200 insulin glargine [Lantus Solostar U-100 Insulin] 100 unit/mL (3 mL) insulin pen 22 unit SQ BID prednisone 20 mg Tablet 40 mg PO DAILY 14 Days Qty: 28 0RF Changed furosemide 40 mg tablet 40 mg PO BID Qty: 28 0RF Discharge Orders: Discharge Order (Routine); Ordered 11/08/22 Ordered By: Fabiola Bentley Admission Data Admit Date/Time: 11/04/22 20:57 Attending Provider: Tio Hameed Admit Provider: Susana Elmore Primary Care Provider: Pat Alejandre Other Providers: Susana Elmore ; Corinne Varner ; Sallie Ortiz ; Triston Jones Other Interventions: Discharge Summary Assessment (RN) Last Done: 11/08/22 16:33 Supervising Physician Co-Signing Physician Notes I personally examined the patient and verified all barrett points of history and exam, discussed case, and agree with decision making with Dr Bentley feeling pretty well wants to go home. dtr understands Na restriction well vitals noted nad heent nc at mmm breathing unlabored no accessory muscles good effort skin no rashes no pallor or icterus neuro no focal deficits acute on chronic HFpEF - stable for home. PO lasix, Na restrict, serial labs (next later this week, then again beginning of next week) close outpt f/u Resident Activity Tracking Resident Involvement: Resident Care Provided Care Provided: Adult Hospital Medicine
--- NOTE | 2022-11-08 17:56 | Billing Data ---
Date of Service November 08, 2022 Coding Level of Care Code HOSP INP/OBS DISCH 30 MIN/LESS
== END 2022-11-08 18:27 | disposition home or self-care (01) | DRG 280 ==
LOC: ED 18:37 → SUATTDRO 20:57 → 2S 20:57

== ENCOUNTER 2022-12-13 14:33 | Inpatient (IN) ==
--- NOTE | 2022-12-13 14:38 | ED Triage Note ---
Date of Service December 13, 2022 History of Present Illness This patient was briefly evaluated while in triage. An abbreviated physical exam was performed. This patient is a 72-year-old Female who presents to the ED for evaluation of shortness of breath and fluid build-up, sent by her Dr. She is unsure of her current weight, but notes recent weights have been around 240lb. Symptoms started Tuesday. No chest pain. Does not use oxygen at home. Denies history of blood clots or previous intubations. Physical Exam CONSTITUTIONAL: Appears to feel unwell. RESPIRATORY: Course crackles heard at least half way up, diminished lung sounds throughout. Mildly labored breathing noted with accessory muscle use. No tachypnea. CARDIOVASCULAR: Regular rate and rhythm with no murmurs, rubs or gallops. Normal peripheral perfusion. Bilateral 4+ pitting lower extremity edema. GASTROINTESTINAL: Soft, nontender, distended NEUROLOGIC: Alert and oriented X 4 with normal affect. Initial orders for labs and / or imaging were placed and patient was placed in the waiting area until a bed is available. Please see further documentation for the full ED course.
--- NOTE | 2022-12-13 14:58 | Emergency Department Note ---
History of Present Illness General Chief Complaint: Shortness of Breath/Dyspnea Stated Complaint: REF BY DOC,FLUID,SOB Time Seen by Provider: 12/13/22 14:44 History of Present Illness Provider Complaint: shortness of breath Onset (ago): day(s) (4) Severity: moderate Consistency/Duration: + progressively worsening Relieved By: + upright position Exacerbated By: + lying flat, + exertion and + coughing Known history of: congestive heart failure Associated symptoms: + orthopnea and + chest congestion; no chest pain, no pain with inspiration, no fever, no cough, no sputum production, no polyuria, no hemoptysis or no abdominal pain HPI Narrative: Unintentional weight gain. 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 Ceron. Home Medications Medication Instructions Recorded Confirmed Type promethazine 25 mg tablet 25 mg PO Q6H PRN nausea #30 tabs 08/17/19 12/13/22 Rx tramadol 50 mg tablet 50 mg PO Q6 PRN Pain 05/19/22 12/13/22 History omega-3 fatty acids 1,000 mg 2,000 mg PO BID #360 caps 07/19/22 12/13/22 Rx capsule pen needle, diabetic 32 gauge x ##600 07/23/22 12/13/22 Rx 5/32" (UltiCare Pen Needle) clotrimazole-betamethasone 1 1 applic topical BID PRN Skin 11/02/22 12/13/22 History %-0.05 % topical cream Irritation epoetin kacey 40,000 unit/mL 40,000 unit subcut DIRECTED 11/02/22 12/13/22 History injection solution (Procrit) insulin glargine 100 unit/mL (3 22 unit subcut BID 11/02/22 12/13/22 History mL) subcutaneous pen (Lantus Solostar U-100 Insulin) allopurinol 100 mg tablet 50 mg PO DAILY #45 tabs 11/12/22 12/13/22 Rx furosemide 40 mg tablet 40 mg PO BID #180 tabs 11/12/22 12/13/22 Rx metoprolol succinate 25 mg 25 mg PO DAILY #90 tabs 11/12/22 12/13/22 Rx tablet,extended release 24 hr insulin aspart U-100 100 unit/mL 1 sliding scale dose subcut 11/15/22 12/13/22 History (3 mL) subcutaneous pen (Novolog DIRECTED FlexPen U-100 Insulin aspart) prednisone 10 mg tablet 10 mg PO DAILY 30 days #30 tabs 11/16/22 12/13/22 Rx sevelamer HCl 800 mg tablet 800 mg PO DAILY #90 tabs 11/16/22 12/13/22 Rx furosemide 20 mg tablet 20 mg PO QPM PRN weight gain #90 12/01/22 12/13/22 Rx tabs venlafaxine 75 mg capsule,extended 75 mg PO DAILY #90 caps 12/01/22 12/13/22 Rx release 24 hr sodium bicarbonate 650 mg tablet 650 mg PO BID stomach upset #60 12/10/22 12/13/22 Rx tabs sodium polystyrene sulfonate 15 60 ml PO 2XWK 12/13/22 12/13/22 History gram-sorbitol 20 gram/60 mL oral susp Allergies Allergy/AdvReac Type Severity Reaction Status Date / Time amoxicillin Allergy Severe LIPS Verified 12/13/22 16:38 SWELLED, "RED ALL OVER" doxycycline Allergy Severe LIPS Verified 12/13/22 16:38 SWELLED, "RED ALL OVER". cephalexin [From Keflex] Allergy Intermediate skin Verified 12/13/22 16:38 starts to peel off sulfamethoxazole Allergy Unknown Unknown Verified 12/13/22 16:38 [From Bactrim] trimethoprim [From Bactrim] Allergy Unknown Unknown Verified 12/13/22 16:38 atorvastatin AdvReac Intermediate Myalgia Verified 12/13/22 16:38 Past Med/Surg History Medical History (HFpEF) heart failure with preserved ejection fraction JEFFREY (acute kidney injury) post-operative 2017 - short term dialysis Anemia Breast cancer diagnosed 2020 Candidal intertrigo Chronic kidney disease, stage 4 (severe) Chronic kidney disease, stage III (moderate) Chronic stasis dermatitis Crystal arthropathy Dyslipidemia GERD (gastroesophageal reflux disease) HTN (hypertension) Hyperuricemia Iron deficiency anemia Mobitz type 1 second degree AV block MCKENZIE (nonalcoholic steatohepatitis) Seborrheic dermatitis Statin myopathy Type 2 diabetes mellitus Vitamin D deficiency Surgical History History of appendectomy History of tonsillectomy and adenoidectomy Humerus fracture surgical repair Hx of cholecystectomy Family History Father Depression Diabetes Mother Hypertension Kidney stones Gallbladder disease Denies family history of Ovarian cancer Prostate cancer Myocardial infarction Breast cancer Colorectal cancer Social History Smoking Status: Never smoker Second Hand Exposure: No; Hx Alcohol Use: No Hx Substance Use: No Preferred Language: Faroese Communication Ability: Effective Visual Impairment: Limited Hearing Ability: Normal 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: No Beliefs That Will Affect Care: None marital status: Current Living Situation: Spouse 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 Feels Safe at Home: Yes Childhood Exposure to Second-Hand Smoke: No Dental Care, Regularly: Yes Physical Activity Frequency: Does not Exercise Seatbelt Use: never Sunscreen Use: No Assistive Devices: None and Walker Physical Exam Vital Signs: Vital Signs - 24 hr 12/13/22 14:35 12/13/22 15:10 12/13/22 15:10 Temperature 36.1 C L Temperature Source Temporal Artery Sc an Pulse Rate 78 77 Pulse Rate [Apical ] Pulse Rhythm Regular Pulse Strength Normal Respiratory Rate 32 H Respiratory Effort / Characteristics Spontaneous Access ory Muscle Use Lab ored Short of Ros th Respiratory Depth Retractive Respiratory Patter n Tachypnea Blood Pressure [Le ft Arm] Blood Pressure Danay n [Left Arm] Blood Pressure Pos ition Sitting Pulse Oximetry 100 93 Oxygen Delivery Me thod Room Air Room Air Room Air Sepsis Recent Feve r Within 48 Hours No Sepsis New/Unexpla ined Change in Men meliton Status No Sepsis Action Take n by Nursing No Action Required 12/13/22 15:40 12/13/22 16:22 12/13/22 16:23 Temperature Temperature Source Pulse Rate 73 Pulse Rate [Apical ] 74 Pulse Rhythm Pulse Strength Respiratory Rate 22 Respiratory Effort / Characteristics Respiratory Depth Normal Respiratory Patter n Blood Pressure [Le ft Arm] 139/82 Blood Pressure Danay n [Left Arm] 101 Blood Pressure Pos ition Pulse Oximetry 94 Oxygen Delivery Me thod Room Air Room Air Sepsis Recent Feve r Within 48 Hours Sepsis New/Unexpla ined Change in Men meliton Status Sepsis Action Take n by Nursing Physical Exam: Physical Exam HENT: Exam performed. - Head: Normocephalic and atraumatic. EYES: Conjunctivae and EOM are normal. Right eye exhibits no discharge. Left eye exhibits no discharge. No scleral icterus. NECK: Normal range of motion. Neck supple. No JVD present. CV: Normal rate, regular rhythm, normal heart sounds and intact distal pulses. There is 3+ peripheral edema of the bilateral lower extremity. Palpable radial pulses bue. PULM/CHEST: Tachypnea. Diminished breath sounds bilaterally. ABD: The abdomen is soft and obese. There is no tenderness. NEURO: Motor and sensation grossly intact. SKIN: Skin is warm and dry. He is not diaphoretic. PSYCH: normal mood and affect. Behavior is normal. Judgment and thought content normal. Course Course 1444: The patient was evaluated in room A4. A complete history and physical exam was performed Cardiac monitoring: An order was placed for continuous cardiac monitoring. The monitor shows a rate of 80 with sinus rhythm interpreted by sc 1641: Vital signs stable. Labs show hemoglobin of 8 INR 1.2. Potassium 5.6. Creatinine at baseline of 4.09. Troponin is elevated at 47.4 BNP elevated 1987. Imaging shows fluid overload with cardiomegaly. COVID-negative. Discussed case with [facility] hospitalist Dr. Kohler. He states he will evaluate the patient for admission. He will evaluate the patient for what diuretics and if the patient needs any treatment for mildly elevated potassium Medical Decision Making Laboratory Data Attestation: I reviewed the patient's lab results. 12/13/22 15:05 12/13/22 15:05 Lab Results 12/13/22 12/13/22 12/13/22 Range/Units 15:05 15:05 15:05 WBC 8.79 (4.8-10.8) K/ul RBC 2.43 L (4.20-5.40) M/uL Hgb 8.0 L (12.0-16.0) g/dl Hct 25.7 L (37.0-47.0) % MCV 105.8 H (80.0-100.0) fL MCH 32.9 (25.0-34.0) pg MCHC 31.1 L (32.0-36.0) g/dL RDW Std Deviation 64.0 H (36.4-46.3) fL RDW Coeff of Amparo 16.6 H (11.5-14.5) % Plt Count 167 (130-400) K/uL MPV 10.2 (9.4-12.4) fL Immature Gran % (Auto) 0.3 % Neut % (Auto) 85.4 % Lymph % (Auto) 7.7 % Winn % (Auto) 5.5 % Eos % (Auto) 0.9 % Baso % (Auto) 0.2 % Neut # (Auto) 7.50 H (1.40-6.50) K/uL Lymph # (Auto) 0.68 L (1.2-3.4) K/uL Winn # (Auto) 0.48 (0.11-0.59) K/uL Eos # (Auto) 0.08 (0-0.50) K/uL Baso # (Auto) 0.02 (0-0.2) K/uL Immature Gran # (Auto) 0.03 (0.01-0.20) K/uL PT (9.0-12.0) Seconds INR (0.9-1.1) APTT (21.0-31.0) Seconds PTT Ratio Sodium 138 (136-145) mmol/L Potassium 5.6 H (3.5-5.1) mmol/L Chloride 105 (98-107) mmol/L Carbon Dioxide 22 (21-32) mmol/L Anion Gap 11 (3-11) BUN 115 H (6-23) mg/dl Creatinine 4.09 H (0.6-1.2) mg/dl Est Cr Clr Drug Dosing 13.8 ml/min Est GFR ( Amer) 11.7 ml/min Est GFR (Non-Af Amer) 10.1 ml/min BUN/Creatinine Ratio 28.1 H (10-20) Glucose 111 H (70-99(Fasting)) mg/dl Calcium 8.0 L (8.5-10.1) mg/dl Total Bilirubin 0.6 (0.2-1.0) mg/dl AST 13 (13-39) U/L ALT 17 (7-52) U/L Alkaline Phosphatase 82 (34-104) U/L Troponin I High Sens 47.4 H (0-14) pg/ml B-Natriuretic Peptide 1988 H (0-100) pg/ml Total Protein 7.2 (6.0-8.3) gm/dl Albumin 3.6 (3.4-5.0) gm/dl Globulin 3.6 (2.5-4.0) gm/dl Albumin/Globulin Ratio 1.0 (0.9-2) SARS-CoV-2, RNA, NAAT (NEGATIVE) 12/13/22 12/13/22 Range/Units 15:05 15:15 WBC (4.8-10.8) K/ul RBC (4.20-5.40) M/uL Hgb (12.0-16.0) g/dl Hct (37.0-47.0) % MCV (80.0-100.0) fL MCH (25.0-34.0) pg MCHC (32.0-36.0) g/dL RDW Std Deviation (36.4-46.3) fL RDW Coeff of Amparo (11.5-14.5) % Plt Count (130-400) K/uL MPV (9.4-12.4) fL Immature Gran % (Auto) % Neut % (Auto) % Lymph % (Auto) % Winn % (Auto) % Eos % (Auto) % Baso % (Auto) % Neut # (Auto) (1.40-6.50) K/uL Lymph # (Auto) (1.2-3.4) K/uL Winn # (Auto) (0.11-0.59) K/uL Eos # (Auto) (0-0.50) K/uL Baso # (Auto) (0-0.2) K/uL Immature Gran # (Auto) (0.01-0.20) K/uL PT 12.2 H (9.0-12.0) Seconds INR 1.2 H (0.9-1.1) APTT 26.5 (21.0-31.0) Seconds PTT Ratio 1.0 Sodium (136-145) mmol/L Potassium (3.5-5.1) mmol/L Chloride (98-107) mmol/L Carbon Dioxide (21-32) mmol/L Anion Gap (3-11) BUN (6-23) mg/dl Creatinine (0.6-1.2) mg/dl Est Cr Clr Drug Dosing ml/min Est GFR ( Amer) ml/min Est GFR (Non-Af Amer) ml/min BUN/Creatinine Ratio (10-20) Glucose (70-99(Fasting)) mg/dl Calcium (8.5-10.1) mg/dl Total Bilirubin (0.2-1.0) mg/dl AST (13-39) U/L ALT (7-52) U/L Alkaline Phosphatase (34-104) U/L Troponin I High Sens (0-14) pg/ml B-Natriuretic Peptide (0-100) pg/ml Total Protein (6.0-8.3) gm/dl Albumin (3.4-5.0) gm/dl Globulin (2.5-4.0) gm/dl Albumin/Globulin Ratio (0.9-2) SARS-CoV-2, RNA, NAAT NEGATIVE (NEGATIVE) Imaging Data Attestation: I personally reviewed and interpreted this imaging study as follows: My Impression: Chest x-ray: Cardiomegaly with fluid overload Radiologist's Impression: Chest X-Ray 12/13/22 14:40 SINGLE VIEW CHEST CLINICAL HISTORY: Dyspnea FINDINGS: An AP, portable, upright chest radiograph is compared to study dated 11/08/2022 and correlated with chest CT dated 11/05/2022. The heart is enlarged noting atherosclerotic calcification of the thoracic aorta. There is pulmonary congestion. Bilateral airspace opacities likely represent pulmonary edema. There are right larger than left pleural effusions with dependent consolidation. No pneumothorax is seen. The skeletal structures are osteopenic. Postsurgical ch elise in noted in the right proximal humerus. IMPRESSION: 1. Cardiomegaly without evidence of congestive failure. 2. Bilateral airspace opacities likely represent pulmonary edema. Correlate clinically for evidence of a superimposed infectious/inflammatory pneumonitis. Radiographic follow-up to resolution is recommended. 3. Right larger than left pleural effusions with dependent consolidation. ACT 112: Negative or not required by law. Electronically signed by: Sukh Hilaroi M.D. 12/13/2022 3:10 PM ECG Data Attestation: I personally reviewed and interpreted this ECG as follows: Interpretation: Sinus rhythm with a rate of 78. QRS and QTc intervals are within normal limits. No ST elevation or ST depression. PVCs present. [facility] Narrative 1444: The patient was evaluated in room A4. A complete history and physical exam was performed Cardiac monitoring: An order was placed for continuous cardiac monitoring. The monitor shows a rate of 80 with sinus rhythm interpreted by me 1641: Vital signs stable. Labs show hemoglobin of 8 INR 1.2. Potassium 5.6. Creatinine at baseline of 4.09. Troponin is elevated at 47.4 BNP elevated 1987. Imaging shows fluid overload with cardiomegaly. COVID-negative. Discussed jaci e with [facility] hospitalist Dr. Kohler. He states he will evaluate the patient for admission. He will evaluate the patient for what diuretics and if the patient needs any treatment for mildly elevated potassium Impression & Plan Fluid overload Discharge Plan Visit Data Chief Complaint: Shortness of Breath/Dyspnea Stated Complaint: REF BY DOC,FLUID,SOB ED Provider: Selwyn Pandey Discharge Problem: Fluid overload Patient Disposition: Admitted As Inpatient Forms Stand Alone Forms: My [facility] Prescriptions Prescriptions: No Action omega-3 fatty acids 1,000 mg capsule 2,000 mg PO BID Qty: 360 3RF (DME) pen needle, diabetic [UltiCare Pen Needle] 32 gauge x 5/32" needle See Rx Instructions .ROUTE .COMPLEX Qty: 600 5RF Dose Instruction: USE 10 TIMES DAILY DIRECTED Rx Instructions: USE 10 TIMES DAILY DX E11.9 DIRECTED furosemide 20 mg tablet 20 mg PO QPM PRN (Reason: weight gain) Qty: 90 1RF venlafaxine 75 mg capsule,extended release 24hr 75 mg PO DAILY Qty: 90 3RF sodium bicarbonate 650 mg tablet 650 mg PO BID Qty: 60 3RF metoprolol succinate 25 mg tablet extended release 24 hr 25 mg PO DAILY Qty: 90 3RF allopurinol 100 mg tablet 50 mg PO DAILY Qty: 45 3RF furosemide 40 mg tablet 40 mg PO BID Qty: 180 3RF insulin aspart U-100 [Novolog FlexPen U-100 Insulin] 100 unit/mL (3 mL) insulin pen 1 sliding scale dose SQ DIRECTED MDD 225 units Rx Instructions: Carb ratio 1:2; Correction Factor 1:18 for BG > 200 promethazine 25 mg tablet 25 mg PO Q6H PRN (Reason: nausea) Qty: 30 5RF sevelamer HCl 800 mg tablet 800 mg PO DAILY Qty: 90 2RF Rx Instructions: must administer with a meal/food prednisone 10 mg tablet 10 mg PO DAILY 30 Days Qty: 30 3RF tramadol 50 mg tablet 50 mg PO Q6 PRN (Reason: Pain) Procrit 40,000 unit/mL solution 40,000 unit subcut DIRECTED Rx Instructions: Inject 40,000 units SubQ once a month and hold if Hemoglobin is greater than or equal to 11. clotrimazole-betamethasone 1-0.05 % cream 1 applic topical BID PRN (Reason: Skin Irritation) insulin glargine [Lantus Solostar U-100 Insulin] 100 unit/mL (3 mL) insulin pen 22 unit SQ BID sodium polystyrene sulf-sorbtl 15-20 gram/60 mL suspension 60 ml PO 2XWK Rx Instructions: once a day twice weekly Referrals Referrals: Pat Alejandre MD [Primary Care Provider] -
--- NOTE | 2022-12-13 15:12 | XRay Report ---
SINGLE VIEW CHEST CLINICAL HISTORY: Dyspnea FINDINGS: An AP, portable, upright chest radiograph is compared to study dated 11/08/2022 and correlat ed with chest CT dated 11/05/2022. The heart is enlarged noting atherosclerotic calcification of the t horacic aorta. There is pulmonary congestion. Bilateral airspace opacities likely represent pulmonary edema. There are right larger than left pleural effusions with dependent consolidation. No pneumotho rax is seen. The skeletal structures are osteopenic. Postsurgical change in noted in the right proxim al humerus. IMPRESSION: 1. Cardiomegaly without evidence of congestive failure. 2. Bilateral airspace opacities likely represent pulmonary edema. Correlate clinically for evidence o f a superimposed infectious/inflammatory pneumonitis. Radiographic follow-up to resolution is recomme nded. 3. Right larger than left pleural effusions with dependent consolidation. ACT 112: Negative or not required by law. Electronically signed by: Sukh Hilario M.D. 12/13/2022 3:10 PM
--- NOTE | 2022-12-13 15:27 | Electrocardiogram Report ---
Test Reason : Blood Pressure : / mmHG Vent. Rate : 078 BPM Atrial Rate : 078 BPM P-R Int : 000 ms QRS Dur : 106 ms QT Int : 368 ms P-R-T Axes : 000 102 264 degrees QTc Int : 419 ms Sinus rhythm with 1st degree AV block and PVCs Rightward axis Abnormal ECG Confirmed by Mario Barcenas ([id number]) on 12/13/2022 3:26:51 PM Referred By: ED Confirmed By:Michoacano Barcenas
[2022-12-13 15:31] LABS: Basophils # (auto) 0.02 K/uL (0-0.2); Basophils % (auto) 0.2 %; Eosinophils # (auto) 0.08 K/uL (0-0.50); Eosinophils % (auto) 0.9 %; Hematocrit (blood only) 25.7 % (37.0-47.0); Immature Granulocytes # (auto) 0.03 K/uL (0.01-0.20); Immature Granulocytes % (auto) 0.3 %; Lymphocytes # (auto) 0.68 K/uL (1.2-3.4); Lymphocytes % (auto) 7.7 %; Mean Corpuscular Hemoglobin 32.9 pg (25.0-34.0); Mean Corpuscular Hgb Conc 31.1 g/dL (32.0-36.0); Mean Corpuscular Volume 105.8 fL (80.0-100.0); Mean Platelet Volume 10.2 fL (9.4-12.4); Monocytes # (auto) 0.48 K/uL (0.11-0.59); Monocytes % (auto) 5.5 %; Neutrophils % (auto) 85.4 %; Platelet Count 167 K/uL (130-400); RDW Coefficient of Variation 16.6 % (11.5-14.5); Red Blood Count 2.43 M/uL (4.20-5.40); White Blood Count 8.79 K/ul (4.8-10.8)
[2022-12-13 15:51] LABS: Albumin Level 3.6 gm/dl (3.4-5.0); BUN Creatinine Ratio 28.1 (10-20); Bilirubin,Total 0.6 mg/dl (0.2-1.0); Creatinine Clr Calc Pharmacy 13.8 ml/min; Est GFR (African American) 11.7 ml/min; Est GFR (Non-African American) 10.1 ml/min; Globulin 3.6 gm/dl (2.5-4.0); Potassium 5.6 mmol/L (3.5-5.1); Total Protein 7.2 gm/dl (6.0-8.3)
[2022-12-13 15:57] LABS: Troponin I High Sensitivity 47.4 pg/ml (0-14)
[2022-12-13 16:01] LABS: INR 1.2 (0.9-1.1); Partial Thromboplastin Time 26.5 Seconds (21.0-31.0); Prothrombin Time 12.2 Seconds (9.0-12.0)
[2022-12-13] MEDS ORDERED: STAT IV STA (16:22)
[2022-12-13] MEDS ORDERED: CALCIUM GLUCONATE 10% 1,000 MG in DEXTROSE 5% 50 ML IV STA (16:22)
[2022-12-13] MEDS ORDERED: FUROSEMIDE 40 MG/4 ML VIAL IV STA (16:23)
--- NOTE | 2022-12-13 16:23 | History & Physical Report ---
Date of Service December 13, 2022 Assessment & Plan (1) Acute on chronic combined systolic (congestive) and diastolic (congestive) heart failure: Plan: -Admit to med tele -The patient is currently afebrile, hemodynamically stable, and stable on RA -At this time the cause of the patient's acute on chronic CHF exacerbation appears to be due to confusion on the patient's part regarding her current diuretic dosing -Her recent routine labs showed an increased cr of 4.66, it appears that her PCP instructed her to hold only her prn dose of lasix but she misunderstood and had been hold ALL lasix since 12/10 -She appears significantly volume overloaded today with a BNP of 1988, currently stable on RA and in no respiratory distress -Initial high sensitivity trop elevated at 47, the patient is without chest discomfort and is not SOB at rest, no acute ECG changes, likely due to demand from acute CHF exacerbation. >Will repeat another high sensitivity trop now then monitor q6h until it begins to decline -Will restart the patient on 40 mg IV lasix BID for now as she has responded well to this in the past -DM II diet with 2 gm sodium restriction dn 1800 mL fluid restriction for now -Monitor intake/output Q-shift, daily weights -Continue to monitor on tele and continuous pulse oximetry -Monitor renal function and electrolytes while on IV diuresis -If any complications with initial IV diuresis would consult Nephrology -Will obtain a phos level now, will follow up -BL SCD's and Sub-Q heparin for DVT PPX and stage 4 CKD -AM CBC, CMP, Mag, Phos, PT/INR (2) Elevated troponin: Plan: -See acute on chronic CHF (3) Hyperkalemia: Plan: -Noted to be 5.6 today -No acute ECG changes, likely due to holding all lasix by mistake and slight increase in her Cr -Will give 1gm IV Calcium gluconate now and start 40 mg IV lasix BID -Will repeat an 8pm K level to ensure it is stable -If continued hyperkalemia would add an oral potassium reducing agent (4) Hypercalcemia: Plan: -Patient has a previous hx of Hypercalcemia, initially thought to be from her cancer with bone mets but has responded well to Prednisone -Continue 10 mg PO prednisone daily -Calcium currently stable today, continue to monitor (5) Chronic kidney disease, stage 4 (severe): Plan: -Per Nephrology, baseline Cr is typically between 3-4, currently at 4.09 -Continue to monitor renal function and electrolytes with IV diuresis -Continue Sevelamer and allopurinol (6) Breast cancer: Plan: -Follows with [facility] -Still receiving treatment -Continue to monitor (7) MCKENZIE (nonalcoholic steatohepatitis): Plan: -LFT's WNL -No longer on Spironolactone -Continue to monitor liver function (8) GERD (gastroesophageal reflux disease): Plan: -Does not appear to be on an H2 he or PPI and currently on low dose prednisone for Hypercalcemia -Will start 40 mg PO protonix daily today -Patient should be discharged on an oral regimen while on Prednisone (9) HTN (hypertension): Plan: -Stable -Continue metoprolol and lasix (10) Type 2 diabetes mellitus: Plan: -Monitor BSG ACHS, goal is 110-160 -Will decreased basal insulin to 10 units lantus BID for now to avoid hypoglycemia -Correction factor of 50 with carb ratio of 15 -Adjust regimen as needed Plan The patient was discussed with Dr. Chambers at the time of the admission History of Present Illness Chief Complaint: SOB, abnormal outpatient labs Primary Care Provider: Pat Alejandre MD Pauline is a 72 year old female with a PMH significant for Breast cancer with metastases to the bone, followed at [facility] and currently receiving Ibrance , anemia, CKD stage 4, hypercalcemia, DM II, HFrEF (LVEF of 40-45% and grade II diastolic dysfunction as of 11/05/22), MCKENZIE, GERD, HTN, dyslipidemia, and Mobitz type 1 AV block who presented to the [facility] ED on 12/13/22 with a chief complaint o f SOB. In the ED the patient was found to be afebrile, hemodynamically stable, and stable on RA. Labs were remarkable for a CBC with WBC WNL, stable Hgb at 8.0, MCV of 105 (down from 109 as of 12/09/22), stable platelets, neutrophil count of 7.5 with lymphocyte count of 0.68, INR of 1.2, Cr of 4.09 (baseline is typically between 3-4), potassium of 5.6, calcium of 8.0, LFT's WNL, initial high sens itivity trop of 47, and covid negative. Chest xray was read as "1. Cardiomegaly without evidence of congestive failure. 2. Bilateral airspace opacities likely represent pulmonary edema. Correlate clinically for evidence of a superimposed infectious/inflammatory pneumonitis. Radiographic follow-up to resolution is recommended. 3. Right larger than left pleural effusions with dependent consolidation.". At the time of the exam the patient was sitting in her bedside recliner in no acute distress, currently stable on RA. She states that she had routine labs drawn on 12/09/22 and was called by who she thought was her Senior Vice President & General Counsel (Dr. Singh) that evening. She tells me she was told to hold all of her Lasix at that time and states that she was started on a foul-tasting brown liquid. She states that since holding her lasix she has been getting significantly swollen with increased SOB with any exertion. She denies recent fevers, chills, changes in vision, hearing, taste, and smell, chest pain, cough, abd pain, nausea, vomiting, dysuria, hematuria, melena, and recent trauma. When asked about diet and fluid intake, she states that she has not had more than 2L of oral fluids daily and watches her sodium intake closely. Per chart review, there is no recent note from Dr. Varner but there is a telephone/on duty note from her PCP on 12/09/22. The note explains that they were alerted to her renal function with a Cr. of 4.66, the note explains that she has been taking 40 mg PO lasix daily with 20 mg PO prn for increased swelling/weight gain. The note explains that the patient was instructed to hold the additional 20 mg PO prn Lasix until the patient saw Dr. Varner on 12/15. Per Dr. Varner's last clinic note of 11/16/22, the patient was supposed to be taking 40 mg PO lasix daily with instructions to increase to 40 mg PO BID for additional weight gain/swelling. I discussed Code Status with the patient, she wishes to be a Full Code and for her daughter to make medical decisions for her if she could not make them herself. Please refer to Dr. Chambers's attestation for any changes to the treatment plan Allergies Allergy/AdvReac Type Severity Reaction Status Date / Time amoxicillin Allergy Severe LIPS Verified 12/13/22 16:38 SWELLED, "RED ALL OVER" doxycycline Allergy Severe LIPS Verified 12/13/22 16:38 SWELLED, "RED ALL OVER". cephalexin [From Keflex] Allergy Intermediate skin Verified 12/13/22 16:38 starts to peel off sulfamethoxazole Allergy Unknown Unknown Verified 12/13/22 16:38 [From Bactrim] trimethoprim [From Bactrim] Allergy Unknown Unknown Verified 12/13/22 16:38 atorvastatin AdvReac Intermediate Myalgia Verified 12/13/22 16:38 Home Medications Medication Instructions Recorded Confirmed Type promethazine 25 mg tablet 25 mg PO Q6H PRN nausea #30 tabs 08/17/19 12/13/22 Rx tramadol 50 mg tablet 50 mg PO Q6 PRN Pain 05/19/22 12/13/22 History omega-3 fatty acids 1,000 mg 2,000 mg PO BID #360 caps 07/19/22 12/13/22 Rx capsule pen needle, diabetic 32 gauge x ##600 07/23/22 12/13/22 Rx " (UltiCare Pen Needle) clotrimazole-betamethasone 1 1 applic topical BID PRN Skin 11/02/22 12/13/22 History %-0.05 % topical cream Irritation epoetin kacey 40,000 unit/mL 40,000 unit subcut DIRECTED 11/02/22 12/13/22 History injection solution (Procrit) insulin glargine 100 unit/mL (3 22 unit subcut BID 11/02/22 12/13/22 History mL) subcutaneous pen (Lantus Solostar U-100 Insulin) allopurinol 100 mg tablet 50 mg PO DAILY #45 tabs 11/12/22 12/13/22 Rx furosemide 40 mg tablet 40 mg PO BID #180 tabs 11/12/22 12/13/22 Rx metoprolol succinate 25 mg 25 mg PO DAILY #90 tabs 11/12/22 12/13/22 Rx tablet,extended release 24 hr insulin aspart U-100 100 unit/mL 1 sliding scale dose subcut 11/15/22 History (3 mL) subcutaneous pen (Novolog DIRECTED FlexPen U-100 Insulin aspart) prednisone 10 mg tablet 10 mg PO DAILY 30 days #30 tabs 11/16/22 12/13/22 Rx sevelamer HCl 800 mg tablet 800 mg PO DAILY #90 tabs 11/16/22 12/13/22 Rx furosemide 20 mg tablet 20 mg PO QPM PRN weight gain #90 12/01/22 12/13/22 Rx tabs venlafaxine 75 mg capsule,extended 75 mg PO DAILY #90 caps 12/01/22 12/13/22 Rx release 24 hr sodium bicarbonate 650 mg tablet 650 mg PO BID stomach upset #60 12/10/22 12/13/22 Rx tabs sodium polystyrene sulfonate 15 60 ml PO 2XWK 12/13/22 12/13/22 History gram-sorbitol 20 gram/60 mL oral susp Past Med/Surg History Medical History (HFpEF) heart failure with preserved ejection fraction JEFFREY (acute kidney injury) post-operative 2017 - short term dialysis Anemia Breast cancer diagnosed 2020 Candidal intertrigo Chronic kidney disease, stage 4 (severe) Chronic kidney disease, stage III (moderate) Chronic stasis dermatitis Crystal arthropathy Dyslipidemia GERD (gastroesophageal reflux disease) HTN (hypertension) Hyperuricemia Iron deficiency anemia Mobitz type 1 second degree AV block MCKENZIE (nonalcoholic steatohepatitis) Seborrheic dermatitis Statin myopathy Type 2 diabetes mellitus Vitamin D deficiency Surgical History History of appendectomy History of tonsillectomy and adenoidectomy Humerus fracture surgical repair Hx of cholecystectomy Family History Father Depression Diabetes Mother Hypertension Kidney stones Gallbladder disease Denies family history of Ovarian cancer Prostate cancer Myocardial infarction Breast cancer Colorectal cancer Social History Smoking Status: Never smoker Second Hand Exposure: No; Hx Alcohol Use: No Hx Substance Use: No Preferred Language: Malay Communication Ability: Effective Visual Impairment: Limited Hearing Ability: Normal Labor Relations Teacher Required: No Beliefs That Will Affect Care: None marital status: Current Living Situation: Spouse 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 All systems have been reviewed and are otherwise negative. Physical Exam Physical Exam: Physical Exam: General: In no acute distress, stated age, chronically ill-appearing but non- toxic appearing HEENT: Normocephalic, atraumatic, no scleral icterus, pupils around round, symmetrical, and reactive to light, moist mucus membranes, trachea midline, no thyromegaly Chest/Pulm: No respiratory distress, symmetrical chest expansion, decreased breath sounds in the BL lower lung solis with crackles in the upper lung solis Cardiac: RRR, no murmurs noted Abdomen: Negative for ascites and bruising, normoactive bowel sounds, soft, non-tender to palpation throughout Musculoskeletal: Symmetrical and without signs of acute trauma, upper and lower extremities with full ROM, no atrophy, spasticity, or flaccidity Extremities: Radial, dorsalis pedis, and posterior tibial pulses are intact and symmetrical, 2-3+ pitting edema in the BL LE's with weeping noted in both lower extremities Skin: Warm, dry, no rashes , lesions, or scars noted Neuro: Alert and oriented to person, place, month, year, and president, no focal defects, no tremors noted Psych: No acute distress, calm and cooperative during the exam Results & Data Results & Data Vital Signs (Past 12 Hours) Vital Signs Temp Pulse Resp Pulse Ox O2 Del Method 12/13/22 15:40 73 12/13/22 15:10 Room Air 12/13/22 15:10 77 93 Room Air 12/13/22 14:35 36.1 C L 78 32 H 100 Room Air Laboratory Results Abnormal lab results 12/13/22 12/13/22 12/13/22 Range/Units 15:05 15:05 15:05 RBC 2.43 L (4.20-5.40) M/uL Hgb 8.0 L (12.0-16.0) g/dl Hct 25.7 L (37.0-47.0) % MCV 105.8 H (80.0-100.0) fL MCHC 31.1 L (32.0-36.0) g/dL RDW Std Deviation 64.0 H (36.4-46.3) fL RDW Coeff of Amparo 16.6 H (11.5-14.5) % Neut # (Auto) 7.50 H (1.40-6.50) K/uL Lymph # (Auto) 0.68 L (1.2-3.4) K/uL PT (9.0-12.0) Seconds INR (0.9-1.1) Potassium 5.6 H (3.5-5.1) mmol/L BUN 115 H (6-23) mg/dl Creatinine 4.09 H (0.6-1.2) mg/dl BUN/Creatinine Ratio 28.1 H (10-20) Glucose 111 H (70-99(Fasting)) mg/dl POC Glucose (70-99) mg/dl Calcium 8.0 L (8.5-10.1) mg/dl Troponin I High Sens 47.4 H (0-14) pg/ml B-Natriuretic Peptide 1988 H (0-100) pg/ml 12/13/22 12/13/22 Range/Units 15:05 17:21 RBC (4.20-5.40) M/uL Hgb (12.0-16.0) g/dl Hct (37.0-47.0) % MCV (80.0-100.0) fL MCHC (32.0-36.0) g/dL RDW Std Deviation (36.4-46.3) fL RDW Coeff of Amparo (11.5-14.5) % Neut # (Auto) (1.40-6.50) K/uL Lymph # (Auto) (1.2-3.4) K/uL PT 12.2 H (9.0-12.0) Seconds INR 1.2 H (0.9-1.1) Potassium (3.5-5.1) mmol/L BUN (6-23) mg/dl Creatinine (0.6-1.2) mg/dl BUN/Creatinine Ratio (10-20) Glucose (70-99(Fasting)) mg/dl POC Glucose 119 H (70-99) mg/dl Calcium (8.5-10.1) mg/dl Troponin I High Sens (0-14) pg/ml B-Natriuretic Peptide (0-100) pg/ml Diagnostic Findings Chest X-Ray 12/13/22 14:40 SINGLE VIEW CHEST CLINICAL HISTORY: Dyspnea FINDINGS: An AP, portable, upright chest radiograph is compared to study dated 11/08/2022 and correlated with chest CT dated 11/05/2022. The heart is enlarged noting atherosclerotic calcification of the thoracic aorta. There is pulmonary congestion. Bilateral airspace opacities likely represent pulmonary edema. There are right larger than left pleural effusions with dependent consolidation. No pneumothorax is seen. The skeletal structures are osteopenic. Postsurgical change in noted in the right proximal humerus. IMPRESSION: 1. Cardiomegaly without evidence of congestive failure. 2. Bilateral airspace opacities likely represent pulmonary edema. Correlate clinically for evidence of a superimposed infectious/inflammatory pneumonitis. Radiographic follow-up to resolution is recommended. 3. Right larger than left pleural effusions with dependent consolidation. ACT 112: Negative or not required by law. Electronically signed by: Sukh Hilario M.D. 12/13/2022 3:10 PM ECG Additional Comments: Sinus rhythm with 1st degree AV block and PVCs Rightward axis ST & T wave abnormality, consider inferior ischemia Abnormal ECG Confirmed by Selvin Barcenas ([id number]) on 12/13/2022 3:26:51 PM Code Status & VTE Plan Code Status Full code VTE Prophylaxis Plan VTE Prophylaxis will be ordered: Yes Supervising Physician Co-Signing Physician Notes Patient seen and examined, chart reviewed, case discussed with Shane Fishman PA-C and I agree with the assessment and plan as above except as otherwise noted Labs and images reviewed Due to other is a 72-year-old female the past medical history of CKD, MCKENZIE, GERD, hypertension, type II DM, intertrigo, past intermittent need for dialysis, combined heart failure who presents after some confusion with her medications and not taking her Lasix for several days and is found to be in acute on chronic congestive heart failure. Clinically is with diminished lung sounds, increased bilateral pitting edema and obvious fluid overload. she is mildly hyperkalemic without chest pain or peak T waves. Endorses weakness, fatigue, worsening shortness of breath and leg swelling. CXR is consistent with pulmonary edema. Agree with management above including Lasix twice daily, BMP daily, and 1 g of calcium for hyperkalemia. With Lasix anticipate hyperkalemia to downtrend, she does not chest pain or peaked T wave changes. Can repeat calcium as needed, continue on telemetry. Target net output of around -1-1.5 L daily. Continue other medications as above. PG Care Time/CCT Total # of Minutes Spent Total Time Spent with Patient: Total time spent is greater than 50% in coordination of care (as documented) at patient's floor/unit and/or counseling patient: C[place] [address] INT INP/OBS CARE 3/75MIN Patient Type Established Medical Decision Making High Complexity Diagnoses Acute on chronic combined systolic (congestive) and diastolic (congestive) heart failure I50.43 Elevated troponin R77.8 Hyperkalemia E87.5 Hypercalcemia E83.52 Chronic kidney disease, stage 4 (severe) N18.4 Breast cancer C50.912 Breast location: unspecified site of breast Estrogen receptor status: unspecified Laterality: left Patient sex: female MCKENZIE (nonalcoholic steatohepatitis) K75.81 GERD (gastroesophageal reflux disease) K21.9 HTN (hypertension) I10 Type 2 diabetes mellitus E11.9 (6) Breast cancer Breast location: unspecified site of breast Estrogen receptor status: unspecified Laterality: left Patient sex: female Qualified Code(s): C50.912 - Malignant neoplasm of unspecified site of left female breast
[2022-12-13] MEDS ORDERED: GLUCOSE 10 TAB/TUBE PO PRN (16:28)
[2022-12-13] MEDS ORDERED: DEXTROSE 50% 50 ML SYRINGE IV PRN (16:28)
[2022-12-13] MEDS ORDERED: GLUCAGON FOR INJ 1 MG VIAL SQ PRN (16:28)
[2022-12-13] MEDS ORDERED: CARBOHYDRATES FOR HYPOGLYCEMIA PO PRN (16:28)
[2022-12-13] MEDS ORDERED: GLUCOSE 40% GEL 15 GM TUBE PO PRN (16:28)
[2022-12-13] MEDS ORDERED: predniSONE 10 MG TABLET PO STA (16:58)
[2022-12-13] MEDS ORDERED: METOPROLOL SUCC 25MG EXT REL TAB PO STA (17:00)
[2022-12-13] MEDS ORDERED: SEVELAMER HCL 800 MG TABLET PO STA (17:01)
[2022-12-13] MEDS ORDERED: traMADol HCL 50 MG TABLET PO PRN (18:22)
[2022-12-13] MEDS: PANTOprazole 40 MG TAB PO SCH (18:46)
[2022-12-13 18:52] LABS: Phosphorus 5.7 mg/dl (2.5-4.9)
[2022-12-13 19:18] LABS: Troponin I High Sensitivity 69.1 pg/ml (0-14)
[2022-12-13] MEDS: INSULIN ASPART PER UNIT CHARGE SC SCH ×2 (20:44→21:27)
[2022-12-13] MEDS ORDERED: LANTUS PER UNIT CHARGE SQ SCH (21:00)
[2022-12-13] MEDS: HEPARIN SOD 5,000 UNIT/0.5 ML VIAL SQ SCH (21:29)
[2022-12-13] MEDS: SODIUM BICARBONATE 650 MG TAB PO SCH (21:30)
[2022-12-14] MEDS: HEPARIN SOD 5,000 UNIT/0.5 ML VIAL SQ SCH ×3 (04:19→22:45)
[2022-12-14 06:24] LABS: Basophils # (auto) 0.01 K/uL (0-0.2); Basophils % (auto) 0.2 %; Eosinophils # (auto) 0.02 K/uL (0-0.50); Eosinophils % (auto) 0.3 %; Hematocrit (blood only) 24.9 % (37.0-47.0); Hemoglobin 7.8 g/dl (12.0-16.0); Immature Granulocytes # (auto) 0.03 K/uL (0.01-0.20); Immature Granulocytes % (auto) 0.5 %; Lymphocytes # (auto) 0.48 K/uL (1.2-3.4); Lymphocytes % (auto) 7.6 %; Mean Corpuscular Hemoglobin 32.6 pg (25.0-34.0); Mean Corpuscular Hgb Conc 31.3 g/dL (32.0-36.0); Mean Corpuscular Volume 104.2 fL (80.0-100.0); Mean Platelet Volume 10.7 fL (9.4-12.4); Monocytes # (auto) 0.28 K/uL (0.11-0.59); Monocytes % (auto) 4.4 %; Neutrophils # (auto) 5.52 K/uL (1.40-6.50); Platelet Count 155 K/uL (130-400); RDW Coefficient of Variation 16.4 % (11.5-14.5); Red Blood Count 2.39 M/uL (4.20-5.40); White Blood Count 6.34 K/ul (4.8-10.8)
[2022-12-14 06:37] LABS: Albumin Level 3.3 gm/dl (3.4-5.0); BUN Creatinine Ratio 28.1 (10-20); Bilirubin,Total 0.5 mg/dl (0.2-1.0); Calcium 7.9 mg/dl (8.5-10.1); Creatinine Clr Calc Pharmacy 14.8 ml/min; Est GFR (African American) 11.8 ml/min; Est GFR (Non-African American) 10.2 ml/min; Globulin 3.3 gm/dl (2.5-4.0); Magnesium 2.7 mg/dl (1.7-2.4); Potassium 4.4 mmol/L (3.5-5.1); Total Protein 6.6 gm/dl (6.0-8.3)
[2022-12-14 06:45] LABS: Polychromasia 1+
[2022-12-14 06:53] LABS: INR 1.2 (0.9-1.1); Prothrombin Time 12.2 Seconds (9.0-12.0)
--- NOTE | 2022-12-14 07:13 | Hospitalist Progress Note ---
Date of Service December 14, 2022 Assessment & Plan (1) Acute on chronic combined systolic (congestive) and diastolic (congestive) heart failure: Plan: 72-year-old woman with medical history significant for breast cancer (bone mets- at [facility] [place], on Ibrance), CKD 4, DM2, HFrEF (40 to 45%), MCKENZIE, GERD, hypertension, dyslipidemia who presented with SOB, weight gain, pedal edema x4 days, admitted for management of acute on chronic CHF. Acute on chronic HFrEF -On admission, BNP 1987, troponin 47.4 creatinine 4.09, K+ 5.6. -Because of exacerbation appears to be due to not taking Lasix since 12/10 (patient misunderstood physician instruction to stop taking as needed p.m. Lasix dose, stopped taking Lasix altogether). * IV Lasix 40 mg twice daily; metoprolol 25 mg p.o. daily * Low-sodium diet (2 g daily) * Daily weights, I's and O's * Currently on heparin 7500 units SQ every 8 hours * Nephro consult: Monitor renal function, volume status closely. Consider bumetanide therapy as outpatient. Elevated troponin -47.4 on admission. Increased to peak of 332.9. Now plateaued, downtrending. -Patient denied chest pain from symptomatic onset through admission and this morning. Review of labs show patient has had elevated troponins as high as 32,648.5 about a month ago. Low suspicion at this time for [place]. Suspect demand ischemia from exacerbation. Hyperkalemia -5.6 on admission. Resolved on low potassium diet, IV Lasix, IV calcium gluconate x1 g. * Trend daily labs CKD 4 -Patient follows [facility] nephrology, Dr. Varner. Baseline creatinine 3.5-4 with EGFR of 10 cc/min. -Per nephro consult, patient actually stage V. Patient does not wish to pursue [facility] at this time but will accept dialysis if absolutely necessary. * Sodium bicarb 650 mg daily (lowered from twice daily to reduce sodium load). * Continue home allopurinol, sevelamer Breast cancer -Follows [facility]. Receives monthly fulvestrant. GERD * Protonix 40 mg daily p.o. Hypertension * Continue home metoprolol * IV Lasix as above. DM2 -Patient on Lantus 22 units twice daily. -Patient's caregiver insists on administering insulin to patient herself. Signed form allowing her to do this. Nursing usually in the room to watch her give insulin. * Lantus SQ 16 units twice daily. * SSI ACHS * Continue to monitor Code: Full code Dispo: Med-Surg telemetry FEN/GI: Low-sodium diet (2 g) DVT Prophylaxis: Heparin 7500 units every 8 hours PT/OT: Yes Consults: Nephrology (2) Elevated troponin: (3) Hyperkalemia: (4) Hypercalcemia: (5) Chronic kidney disease, stage 4 (severe): (6) Breast cancer: (7) MCKENZIE (nonalcoholic steatohepatitis): (8) GERD (gastroesophageal reflux disease): (9) HTN (hypertension): Admission and Anticipated Discharge Date Admission Date: December 13, 2022 Supervising Physician Co-Signing Physician Notes 72-year-old female with past medical history significant for metastatic breast cancer (on fluvestrant and ibrance), HFrEF, type 1 AV block, CKD 4, type 2 diabetes, hypertension, hyperlipidemia, MCKENZIE, GERD who presented with worsening shortness of breath on admission for CHF exacerbation. Patient states she had cough nephrology, worsening creatinine, Lasix was held outpatient 12/10/22 (she was taking 40 mg a.m. and 20 mg p.m. as needed) and patient was recommended to go to ED for hospitalization and management but delayed seeking treatment. Since that time, patient has been experiencing weight gain and worsening lower extremity edema. Will continue diuresis. Appreciate nephrology input. I personally examined the patient and verified all barrett points of history and exam, discussed case, and agree with decision making and plan documented by Dr. Juarez. Subjective Patient is seated in chair on arrival this morning. She reports significant improvement in shortness of breath compared to yesterday. She has ambulated to and from the commode with assistance. Otherwise, she has not walked much. Review of Systems Review of Systems: All systems reviewed & are unremarkable except as noted in HPI & below Physical Exam Physical Exam: General: Morbidly obese woman in no acute distress HEENT: PERRLA. Normal conjunctiva, anicteric sclera. Oropharynx normal. Respiratory: Normal respiratory effort, CTABL. Diminished breath sounds bilaterally Cardiovascular: RRR without murmurs, gallops, or rubs. No edema. GI: Soft abdomen with normal bowel sounds heard on auscultation. Nontender x4 quadrants Neuro: Alert and oriented x3. Results & Data Results & Data Vital Signs (Past 12 Hours) Vital Signs Temp Pulse Pulse Resp BP Pulse Ox O2 Del Method 12/14/22 00:00 73 12/14/22 00:00 Room Air 12/13/22 23:38 36.5 C 79 20 111/53 L 97 Room Air Resident Activity Tracking Resident Involvement: Resident Care Provided Care Provided: Adult [facility] Medicine (6) Breast cancer Breast location: unspecified site of breast Estrogen receptor status: unspecified Laterality: left Patient sex: female Qualified Code(s): C50.912 - Malignant neoplasm of unspecified site of left female breast
[2022-12-14] MEDS: VENLAFAXINE HCL XR 75 MG CAPXR PO SCH (08:08)
[2022-12-14] MEDS: METOPROLOL SUCC 25MG EXT REL TAB PO SCH (08:08)
[2022-12-14] MEDS: FUROSEMIDE 40 MG/4 ML VIAL IV SCH ×2 (08:08→17:43)
[2022-12-14] MEDS: SEVELAMER HCL 800 MG TABLET PO SCH (08:08)
[2022-12-14] MEDS: SODIUM BICARBONATE 650 MG TAB PO SCH (08:08)
[2022-12-14] MEDS: PANTOprazole 40 MG TAB PO SCH (08:09)
[2022-12-14] MEDS: allopurinoL 100 MG TAB PO SCH (08:09)
[2022-12-14] MEDS ORDERED: LANTUS PER UNIT CHARGE SQ SCH (09:00)
[2022-12-14] MEDS ORDERED: predniSONE 10 MG TABLET PO SCH (09:00)
[2022-12-14] MEDS: INSULIN ASPART PER UNIT CHARGE SC SCH ×4 (09:28→22:43)
[2022-12-14] MEDS: LANTUS PER UNIT CHARGE SQ SCH ×3 (13:04→23:29)
[2022-12-14 15:18] LABS: BUN Creatinine Ratio 27.1 (10-20); Calcium 8.2 mg/dl (8.5-10.1); Creatinine Clr Calc Pharmacy 14.5 ml/min; Est GFR (African American) 11.6 ml/min; Potassium 4.7 mmol/L (3.5-5.1)
--- NOTE | 2022-12-14 15:30 | Nephrology Consultation ---
Date of Consultation December 14, 2022 Assessment & Plan (1) JEFFREY (acute kidney injury): * JEFFREY due to systolic CHF. Renal function improving following IV diuretic therapy (2) Hyperkalemia: * Resolved w/ low potassium diet and IV diuretic therapy * Advised patient to avoid salt substitutes (3) CKD (chronic kidney disease) stage 5, GFR less than 15 ml/min: * Baseline Cr 3.5-4.0 w/ EGFR 10 cc/min. Prior evaluation has revealed normal size kidneys without hydronephrosis. UPCR 0.4. * Discussed CERTIFIED MEDICAL CODER w/ patient today. She is familiar w/ HD. She required acute dialysis during a prior hospitalization. Patient does not wish to pursue CERTIFIED MEDICAL CODER at this time but notes that she may be open to accepting dialysis "if it is absolutely necessary" * Continue NaHCO3 therapy but reduce to 650 mg daily to limit sodium load (4) Acute on chronic combined systolic (congestive) and diastolic (congestive) heart failure: * LE swelling may be related to Fulvestrant therapy and recent discontinuation of diuretic therapy * Agree w/ Furosemide 40 mg IV BID * Monitor kidney function and volume status closely * As outpatient, she may benefit from Bumetanide therapy due to improved bioavailability (5) Breast cancer: * Metastatic to spine * On Ibrance therapy and monthly Fulvestrant (6) Hypercalcemia: * Corrected w/ Prednisone therapy * Serum Ca now low. Will reduce Prednisone to 5 mg daily and monitor serum Ca History of Present Illness Reason for Consultation: JEFFREY/CKD, LE edema Attending Physician: Kalpana Freed, History of Present Illness Mrs. Beyer is a 72 year old white female who is seen at the request of the [facility] Hospitalist Service for evaluation of JEFFREY/CKD, anemia and progressive LE edema. Medical records in the EMR were reviewed today and are summarized as follows: Mrs. Beyer was diagnosed w/ breast cancer with metastasis to the spine in 09/15. She has received Oncologic care at [facility]. She has been on Ibrance therapy and monthly Fulvestrant. Her medical course has been complicated by recurrent hypercalcemia refractory to Prolia therapy. Oncology did not feel that this is hypercalcemia of malignancy because her metastasis were small/limited. Outpatient evaluation of hypercalcemia has revealed appropriately depressed PTH and low PTHrp. Patient was noted to have a high serum KODY level and high 1,25 Vitamin D concerning for possible underlying granulomatous disease. Serum calcium has responded to Prednisone therapy. Mrs. Beyer reports that she has limited her sodium intake by using salt substitute. Despite this she has experienced a 22 lb weight gain over the last month. She now has tense LE swelling which limits her ability to ambulate. Recent outpatient labs revealed an increase in Cr from 4.0 to 4.6. Patient stopped her diuretic therapy to avoid worsening renal dysfunction and was referred to the EMD for ongoing management. Of note, baseline Cr has been 3.5- 4.0. 11/18 echocardiogram: LVEF 40-45%, mild LVH, mild MR, grade II diastolic dysfunction. Patient receives monthly Fluvestrant which has a 7% incidence of peripheral edema PMH: HTN, hyperlipidemia, CHF, AODM, GERD and morbid obesity Allergies Allergy/AdvReac Type Severity Reaction Status Date / Time amoxicillin Allergy Severe LIPS Verified 12/13/22 16:38 SWELLED, "RED ALL OVER" doxycycline Allergy Severe LIPS Verified 12/13/22 16:38 SWELLED, "RED ALL OVER". cephalexin [From Keflex] Allergy Intermediate skin Verified 12/13/22 16:38 starts to peel off sulfamethoxazole Allergy Unknown Unknown Verified 12/13/22 16:38 [From Bactrim] trimethoprim [From Bactrim] Allergy Unknown Unknown Verified 12/13/22 16:38 atorvastatin AdvReac Intermediate Myalgia Verified 12/13/22 16:38 Home Medications Medication Instructions Recorded Confirmed Type promethazine 25 mg tablet 25 mg PO Q6H PRN nausea #30 tabs 08/17/19 12/13/22 Rx tramadol 50 mg tablet 50 mg PO Q6 PRN Pain 05/19/22 12/13/22 History omega-3 fatty acids 1,000 mg 2,000 mg PO BID #360 caps 07/19/22 12/13/22 Rx capsule pen needle, diabetic 32 gauge x ##600 07/23/22 12/13/22 Rx 5/32" (UltiCare Pen Needle) clotrimazole-betamethasone 1 1 applic topical BID PRN Skin 11/02/22 12/13/22 History %-0.05 % topical cream Irritation epoetin kacey 40,000 unit/mL 40,000 unit subcut DIRECTED 02/07/23 03/20/23 History injection solution (Procrit) insulin glargine 100 unit/mL (3 22 unit subcut BID 11/02/22 12/13/22 History mL) subcutaneous pen (Lantus Solostar U-100 Insulin) allopurinol 100 mg tablet 50 mg PO DAILY #45 tabs 11/12/22 12/13/22 Rx furosemide 40 mg tablet 40 mg PO BID #180 tabs 11/12/22 12/13/22 Rx metoprolol succinate 25 mg 25 mg PO DAILY #90 tabs 11/12/22 12/13/22 Rx tablet,extended release 24 hr insulin aspart U-100 100 unit/mL 1 sliding scale dose subcut 11/15/22 12/13/22 History (3 mL) subcutaneous pen (Novolog DIRECTED FlexPen U-100 Insulin aspart) prednisone 10 mg tablet 10 mg PO DAILY 30 days #30 tabs 11/16/22 12/13/22 Rx sevelamer HCl 800 mg tablet 800 mg PO DAILY #90 tabs 11/16/22 12/13/22 Rx furosemide 20 mg tablet 20 mg PO QPM PRN weight gain #90 12/01/22 12/13/22 Rx tabs venlafaxine 75 mg capsule,extended 75 mg PO DAILY #90 caps 12/01/22 12/13/22 Rx release 24 hr sodium bicarbonate 650 mg tablet 650 mg PO BID stomach upset #60 12/10/22 12/13/22 Rx tabs sodium polystyrene sulfonate 15 60 ml PO 2XWK 12/13/22 12/13/22 History gram-sorbitol 20 gram/60 mL oral susp Patient History Medical History (HFpEF) heart failure with preserved ejection fraction JEFFREY (acute kidney injury) post-operative 2017 - short term dialysis Anemia Breast cancer diagnosed 2020 Candidal intertrigo Chronic kidney disease, stage 4 (severe) Chronic kidney disease, stage III (moderate) Chronic stasis dermatitis Crystal arthropathy Dyslipidemia GERD (gastroesophageal reflux disease) HTN (hypertension) Hyperuricemia Iron deficiency anemia Mobitz type 1 second degree AV block MCKENZIE (nonalcoholic steatohepatitis) Seborrheic dermatitis Statin myopathy Type 2 diabetes mellitus Vitamin D deficiency Surgical History History of appendectomy History of tonsillectomy and adenoidectomy Humerus fracture surgical repair Hx of cholecystectomy Family History Father Depression Diabetes Mother Hypertension Kidney stones Gallbladder disease Denies family history of Ovarian cancer Prostate cancer Myocardial infarction Breast cancer Colorectal cancer Social History Smoking Status: Never smoker Second Hand Exposure: No; Hx Alcohol Use: No Hx Substance Use: No Preferred Language: Korean Communication Ability: Effective Visual Impairment: Limited Hearing Ability: Normal Market Research Interviewer Required: No Beliefs That Will Affect Care: None marital status: Current Living Situation: Spouse 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 Feels Safe at Home: Yes Safety Concerns: Feels Safe At This Time Childhood Exposure to Second-Hand Smoke: No Dental Care, Regularly: Yes Physical Activity Frequency: Does not Exercise Seatbelt Use: never Sunscreen Use: No Assistive Devices: Walker Review of Systems Constitutional: no fever Eyes: no worsening vision Ear, Nose, Mouth, Throat: no problem reported Respiratory: no cough and no dyspnea Cardiovascular: no chest pain and no dyspnea Gastrointestinal: no abdominal pain, no nausea, no vomiting and no diarrhea/loose stools Integumentary: tense pretibial edema bilaterally Physical Exam Constitutional: no acute distress Eyes: PERRL, conjunctivae normal, anicteric sclerae ENMT: external ear and nose normal, oropharynx normal Neck: trachea midline, no thyromegaly Respiratory: normal respiratory effort, lungs clear to auscultation Cardiovascular: Rate/Rhythm: regular rate and regular rhythm Extremities: + edema (tense bilateral LE swelling) Gastrointestinal (Abdomen): normal bowel sounds, soft, nontender, no hepatosplenomegaly Neurologic: awake; not confused Results & Data Vital Signs (Past 12 Hours) Vital Signs Temp Pulse Pulse Resp BP Pulse Ox O2 Del Method 12/14/22 08:45 Room Air 12/14/22 11:20 36.4 C L 61 20 115/74 94 Room Air 12/14/22 07:52 63 12/14/22 07:27 36.4 C L 75 20 140/60 94 Room Air Laboratory Results Laboratory Tests 12/09/22 12/13/22 12/14/22 14:34 15:05 05:26 WBC 6.34 Hgb 7.8 L Hct 24.9 L Sodium Potassium Chloride Carbon Dioxide BUN 136 H 115 H Creatinine 4.66 H* 4.09 H Est GFR (Non-Af Amer) Glucose Calcium Albumin 12/14/22 12/14/22 05:26 14:09 WBC Hgb Hct Sodium 139 Potassium 4.7 Chloride 104 Carbon Dioxide 23 BUN 114 H 112 H Creatinine 4.06 H 4.13 H Est GFR (Non-Af Amer) 10.0 Glucose 132 H Calcium 8.2 L Albumin 3.3 L Diagnostic Findings 05/21/22 Renal US: Kidneys: The kidneys are normal in size and echotexture. The right kidney measures 10.7 cm in length and the left kidney measures 11.9 cm in length. There is no hydronephrosis. No shadowing renal calculi are identified. There is no sonographic evidence of contour deforming renal mass lesion. No perinephric fluid is identified. Bladder: The bladder is decompressed and grossly unremarkable. Ureteral jets were not seen. Upper abdomen: The liver appears enlarged and steatotic. Nodularity of the hepatic surface contour suggests morphologic changes of cirrhosis. 12/13/22 CXR: 1. Cardiomegaly without evidence of congestive failure. 2. Bilateral airspace opacities likely represent pulmonary edema. Correlate clinically for evidence of a superimposed infectious/inflammatory pneumonitis. Radiographic follow-up to resolution is recommended. 3. Right larger than left pleural effusions with dependent consolidation. PG Care Time/CCT Total # of Minutes Spent Total Time Spent with Patient: Total time spent is greater than 50% in coordination of care (as documented) at patient's floor/unit and/or counseling patient: Coding Level of Care Code 93148 IN/OBS CONSULT LVL 5,80M Diagnoses JEFFREY (acute kidney injury) N17.9 Hyperkalemia E87.5 CKD (chronic kidney disease) stage 5, GFR less than 15 ml/min N18.5 Acute on chronic combined systolic (congestive) and diastolic (congestive) heart failure I50.43 Breast cancer C50.912 Breast location: unspecified site of breast Estrogen receptor status: unspecified Laterality: left Patient sex: female Hypercalcemia E83.52 (5) Breast cancer Breast location: unspecified site of breast Estrogen receptor status: unspecified Laterality: left Patient sex: female Qualified Code(s): C50.912 - Malignant neoplasm of unspecified site of left female breast
[2022-12-14 15:57] LABS: Troponin I High Sensitivity 306.9 pg/ml (0-14)
[2022-12-14 16:11] LABS: Magnesium 2.6 mg/dl (1.7-2.4)
[2022-12-15] MEDS: LANTUS PER UNIT CHARGE SQ SCH ×2 (00:48→13:28)
[2022-12-15] MEDS: HEPARIN SOD 5,000 UNIT/0.5 ML VIAL SQ SCH ×3 (05:26→20:58)
[2022-12-15 06:57] LABS: Basophils # (auto) 0.02 K/uL (0-0.2); Basophils % (auto) 0.3 %; Eosinophils # (auto) 0.07 K/uL (0-0.50); Hematocrit (blood only) 24.5 % (37.0-47.0); Hemoglobin 7.6 g/dl (12.0-16.0); Immature Granulocytes # (auto) 0.04 K/uL (0.01-0.20); Immature Granulocytes % (auto) 0.6 %; Lymphocytes # (auto) 1.02 K/uL (1.2-3.4); Lymphocytes % (auto) 15.1 %; Mean Corpuscular Volume 106.5 fL (80.0-100.0); Mean Platelet Volume 10.7 fL (9.4-12.4); Monocytes # (auto) 0.39 K/uL (0.11-0.59); Monocytes % (auto) 5.8 %; Neutrophils # (auto) 5.23 K/uL (1.40-6.50); Neutrophils % (auto) 77.2 %; Platelet Count 168 K/uL (130-400); RDW Coefficient of Variation 16.3 % (11.5-14.5); RDW Standard Deviation 63.9 fL (36.4-46.3); White Blood Count 6.77 K/ul (4.8-10.8)
[2022-12-15 07:19] LABS: Albumin Level 3.4 gm/dl (3.4-5.0); BUN Creatinine Ratio 26.6 (10-20); Bilirubin,Total 0.5 mg/dl (0.2-1.0); Calcium 7.8 mg/dl (8.5-10.1); Creatinine Clr Calc Pharmacy 13.5 ml/min; Est GFR (African American) 10.6 ml/min; Est GFR (Non-African American) 9.1 ml/min; Globulin 3.4 gm/dl (2.5-4.0); Magnesium 2.7 mg/dl (1.7-2.4); Phosphorus 6.2 mg/dl (2.5-4.9); Potassium 4.2 mmol/L (3.5-5.1); Total Protein 6.8 gm/dl (6.0-8.3)
[2022-12-15 07:28] LABS: Polychromasia 1+
[2022-12-15 07:33] LABS: INR 1.2 (0.9-1.1); Prothrombin Time 12.3 Seconds (9.0-12.0)
[2022-12-15] MEDS: FUROSEMIDE 40 MG/4 ML VIAL IV SCH ×4 (08:43→20:58)
[2022-12-15] MEDS: PANTOprazole 40 MG TAB PO SCH (08:43)
[2022-12-15] MEDS: METOPROLOL SUCC 25MG EXT REL TAB PO SCH (08:44)
[2022-12-15] MEDS: predniSONE 5 MG TAB PO SCH (08:44)
[2022-12-15] MEDS: SODIUM BICARBONATE 650 MG TAB PO SCH (08:44)
[2022-12-15] MEDS: VENLAFAXINE HCL XR 75 MG CAPXR PO SCH (08:44)
[2022-12-15] MEDS: SEVELAMER HCL 800 MG TABLET PO SCH (08:44)
[2022-12-15] MEDS: allopurinoL 100 MG TAB PO SCH (08:44)
[2022-12-15] MEDS: INSULIN ASPART PER UNIT CHARGE SC SCH ×4 (08:48→20:57)
--- NOTE | 2022-12-15 08:55 | Nephrology Progress Note ---
Date of Service December 15, 2022 Assessment & Plan (1) JEFFREY (acute kidney injury): Plan: * JEFFREY due to systolic CHF. Renal function is fluctuating. Electrolyte balance is acceptable. Will continue to diurese * Elevated BUN in part related to steroid therapy. No uremic symptoms or pericardial rub at this time (2) Hyperkalemia: Plan: * Resolved w/ low potassium diet and IV diuretic therapy * Advised patient to avoid salt substitutes (3) CKD (chronic kidney disease) stage 5, GFR less than 15 ml/min: Plan: * Baseline Cr 3.5-4.0 w/ EGFR 10 cc/min. Prior evaluation has revealed normal size kidneys without hydronephrosis. UPCR 0.4. * Discussed ADMINISTRATOR OF HOME HEALTH w/ patient. She is familiar w/ HD. She required acute dialysis during a prior hospitalization. Patient does not wish to pursue ADMINISTRATOR OF HOME HEALTH at this time but notes that she may be open to accepting dialysis "if it is absolutely necessary" * Continue NaHCO3 therapy but reduce to 650 mg daily to limit sodium load (4) Acute on chronic combined systolic (congestive) and diastolic (congestive) heart failure: Plan: * LE swelling may be related to Fulvestrant therapy and recent discontinuation of diuretic therapy * Increase Furosemide 40 mg IV TID * Monitor kidney function and volume status closely (5) Breast cancer: Plan: * Metastatic to spine * On Ibrance therapy and monthly Fulvestrant * Patient is due for next dose of Fulvestrant 12/21/22. She would like Oncology here to provide medication if she is still hospitalized (6) Hypercalcemia: Plan: * Corrected w/ Prednisone therapy * Serum Ca now low. Prednisone has been reduced to 5 mg daily and monitor serum Ca Admission and Anticipated Discharge Date Admission Date: December 13, 2022 Subjective Ms. Beyer was evaluated in her hospital room this morning. She reports brisk UO and notes that her peripheral edema is mildly improved. Review of Systems Constitutional: no fever Eyes: no worsening vision Ear, Nose, Mouth, Throat: no problem reported Respiratory: no cough and no dyspnea Cardiovascular: no chest pain and no dyspnea Gastrointestinal: no abdominal pain, no nausea, no vomiting and no diarrhea/loose stools Integumentary: leg swelling Physical Exam Constitutional: no acute distress Eyes: PERRL, conjunctivae normal, anicteric sclerae ENMT: external ear and nose normal, oropharynx normal Neck: trachea midline, no thyromegaly Respiratory: normal respiratory effort, lungs clear to auscultation Cardiovascular: Rate/Rhythm: regular rate and regular rhythm Extremities: + edema (3+ pitting pretibial edema) Gastrointestinal (Abdomen): normal bowel sounds, soft, nontender, no hepatosplenomegaly Neurologic: awake; not confused Results & Data Vital Signs (Past 12 Hours) Vital Signs Temp Pulse Pulse Resp BP Pulse Ox O2 Del Method 12/15/22 07:30 36.9 C 81 18 123/67 94 Room Air 12/15/22 07:39 Room Air 12/15/22 07:16 58 L 12/15/22 03:01 36.4 C L 58 L 20 117/68 92 Room Air 12/14/22 23:35 Room Air 12/14/22 23:33 67 12/14/22 23:02 36.8 C 73 18 130/70 96 Room Air Laboratory Results Laboratory Tests 11/12/22 12/15/22 12/15/22 14:09 05:42 05:42 WBC 6.77 Hgb 7.6 L Hct 24.5 L Plt Count 168 Sodium 141 Potassium 4.2 Chloride 105 Carbon Dioxide 24 BUN 118 H Creatinine 4.44 H D Calcium 7.8 L Phosphorus 6.2 H Magnesium 2.7 H Transferrin % Sat 30 Ferritin 396.0 H Albumin 3.4 Protein/Creatinin Ratio 0.432 H PG Care Time/CCT Total # of Minutes Spent Total Time Spent with Patient: Total time spent is greater than 50% in coordination of care (as documented) at patient's floor/unit and/or counseling patient: Coding Level of Care Code 41857 SUB INP/OBS CARE 3/50MIN Diagnoses JEFFREY (acute kidney injury) N17.9 Hyperkalemia E87.5 CKD (chronic kidney disease) stage 5, GFR less than 15 ml/min N18.5 Acute on chronic combined systolic (congestive) and diastolic (congestive) heart failure I50.43 Breast cancer C50.912 Breast location: unspecified site of breast Estrogen receptor status: unspecified Laterality: left Patient sex: female Hypercalcemia E83.52 (5) Breast cancer Breast location: unspecified site of breast Estrogen receptor status: unspecified Laterality: left Patient sex: female Qualified Code(s): C50.912 - Malignant neoplasm of unspecified site of left female breast
[2022-12-15] MEDS: IRON SUCROSE 300 MG in SODIUM CHLORIDE 0.9% 250 ML IV SCH (09:20)
[2022-12-15] MEDS ORDERED: EPOETIN ALFA 20,000 UNITS/ML VIAL SQ ONE (09:30)
--- NOTE | 2022-12-15 11:58 | Electrocardiogram Report ---
Test Reason : Blood Pressure : / mmHG Vent. Rate : 061 BPM Atrial Rate : 091 BPM P-R Int : 000 ms QRS Dur : 104 ms QT Int : 436 ms P-R-T Axes : 000 096 226 degrees QTc Int : 438 ms Sinus rhythm with second degree type one AV block (Mobitz 1) Rightward axis Abnormal ECG When compared with ECG of 13-DEC-2022 14:55, Minimal criteria for Anterior infarct are no longer Present T wave inversion more evident in Lateral leads Confirmed by Mario Barcenas ([id number]) on 12/15/2022 11:57:54 AM Referred By: REFERRED SELF Confirmed By:Michoacano Barcenas
--- NOTE | 2022-12-15 11:59 | Electrocardiogram Report ---
Test Reason : Blood Pressure : / mmHG Vent. Rate : 069 BPM Atrial Rate : 087 BPM P-R Int : 000 ms QRS Dur : 098 ms QT Int : 410 ms P-R-T Axes : 000 080 205 degrees QTc Int : 439 ms Sinus rhythm with Mobitz 1 conduction Low voltage QRS Possible Anterolateral infarct , age undetermined Abnormal ECG When compared with ECG of 14-DEC-2022 11:09, (unconfirmed) T wave inversion less evident in Lateral leads Confirmed by Mario Barcenas ([id number]) on 12/15/2022 11:59:51 AM Referred By: REFERRED SELF Confirmed By:Michoacano Barcenas
[2022-12-15 13:29] LABS: Appearance Urine Clear (Clear); Bacteria Urine Automated 3+ (Negative); Bilirubin Urine Negative (Negative); Blood Urine Negative (Negative); Cast Urine Automated 0 /lpf (0-5); Color Urine Yellow; Epithelial Cell Urine Auto >30 /lpf (0-5); Glucose Urine UA Negative (Negative); Ketones Urine Negative (Negative); Leukocyte Esterase Urine 1+ (Negative); Nitrite Urine Positive (Negative); Protein Urine Negative (Negative); RBC Urine Automated 0-4 /hpf (0-4); Urobilinogen Urine Negative (Negative)
[2022-12-15 13:52] LABS: Total Protein Urine Random 16.7 mg/dl (0-11.9)
[2022-12-15 13:57] LABS: Creatinine Urine Random 31.4 mg/dl; Protein Creatinine Ratio Urine 0.5 (0-0.2)
[2022-12-15] MEDS ORDERED: LANTUS PER UNIT CHARGE SQ STA (14:41)
--- NOTE | 2022-12-15 17:09 | Hospitalist Progress Note ---
Date of Service December 15, 2022 Assessment & Plan (1) Acute on chronic combined systolic (congestive) and diastolic (congestive) heart failure: Plan: 72-year-old woman with medical history significant for breast cancer (bone mets- at [facility] [place], on Ibrance), CKD 4, DM2, HFrEF (40 to 45%), MCKENZIE, GERD, hypertension, dyslipidemia who presented with SOB, weight gain, pedal edema x4 days, admitted for management of acute on chronic CHF. Acute on chronic HFrEF -On admission, BNP 1987, troponin 47.4 creatinine 4.09, K+ 5.6. -Because of exacerbation appears to be due to not taking Lasix since 12/10 (patient misunderstood physician instruction to stop taking as needed p.m. Lasix dose, stopped taking Lasix altogether). * IV Lasix 40 mg 3 times daily; metoprolol 25 mg p.o. daily * Low-sodium diet (2 g daily) * Daily weights, I's and O's. Diuresing to goal weight of 110 kg (weight at last discharge). * Currently on heparin 7500 units SQ every 8 hours * Nephro consult: Monitor renal function, volume status closely. Consider bumetanide therapy as outpatient. Elevated troponin -47.4 on admission. Increased to peak of 332.9. Now plateaued, downtrending. -Patient denied chest pain from symptomatic onset through admission and this morning. Review of labs show patient has had elevated troponins as high as 32,648.5 about a month ago. Low suspicion at this time for DC. Suspect demand ischemia from exacerbation. Hyperkalemia -5.6 on admission. Resolved on low potassium diet, IV Lasix, IV calcium gluconate x1 g. * Trend daily labs Right lower extremity wound * Wound care consult. Continue to monitor. CKD 4 -Patient follows [facility] nephrology, Dr. Varner. Baseline creatinine 3.5-4 with EGFR of 10 cc/min. -Per nephro consult, patient actually stage V. Patient does not wish to pursue PROFESSIONAL DEVELOPMENT DIRECTOR at this time but will accept dialysis if absolutely necessary. * Sodium bicarb 650 mg daily (lowered from twice daily to reduce sodium load). * Continue home allopurinol, sevelamer Anemia -Iron saturation 30% with ferritin 396. * IV iron sucrose (Venofer) 300 mg daily scheduled * SQ Epogen x1 dose. Breast cancer -Follows [facility]. Receives monthly fulvestrant. GERD * Protonix 40 mg daily p.o. Hypertension * Continue home metoprolol * IV Lasix as above. DM2 -Patient on Lantus 22 units twice daily at home. -Patient's caregiver insists on administering insulin to patient herself. Signed form allowing her to administer. Nursing usually in the room to watch her give insulin. * Lantus SQ 16 units twice daily. Patient received 10 units Lantus today due to caregiver's concern for low blood sugar. * SSI ACHS * Continue to monitor Code: Full code Dispo: Med-Surg telemetry FEN/GI: Low-sodium diet (2 g) DVT Prophylaxis: Heparin 7500 units every 8 hours PT/OT: Yes Consults: Nephrology (2) Elevated troponin: (3) Hyperkalemia: (4) Hypercalcemia: (5) Chronic kidney disease, stage 4 (severe): (6) Breast cancer: (7) MCKENZIE (nonalcoholic steatohepatitis): (8) GERD (gastroesophageal reflux disease): (9) HTN (hypertension): Admission and Anticipated Discharge Date Admission Date: December 13, 2022 Supervising Physician Co-Signing Physician Notes 72-year-old female with past medical history significant for metastatic breast cancer (on fluvestrant and ibrance), HFrEF, type 1 AV block, CKD 4, type 2 diabetes, hypertension, hyperlipidemia, MCKENZIE, GERD who presented with worsening shortness of breath on admission for CHF exacerbation. Continuing diuresis, current IV lasix dose 40 mg TID. LE pitting edema remains bilaterally. Patient in good spirits, seated with legs elevated on exam today. Patient denies chest pain or SOB. Continue to monitor weights and I/Os closely. I personally examined the patient and verified all barrett points of history and exam, discussed case, and agree with decision making and plan documented by Dr. Juarez. Subjective Acute events overnight. Patient feels better this morning. Reports reduced leg swelling, particularly on her right. She also expressed concern that she is not going to the restroom as much as she would like. Continues to deny shortness of breath, chest pain, dizziness. Review of Systems Review of Systems: All systems reviewed & are unremarkable except as noted in HPI & below Physical Exam Physical Exam: General: Morbidly obese woman in no acute distress HEENT: PERRLA. Normal conjunctiva, anicteric sclera. Oropharynx normal. Respiratory: Normal respiratory effort, CTABL. Diminished breath sounds bilaterally Cardiovascular: RRR without murmurs, gallops, or rubs. Bilateral pitting LE edema L >R. GI: Soft abdomen with normal bowel sounds heard on auscultation. Nontender x4 quadrants Neuro: Alert and oriented x3. Results & Data Results & Data Vital Signs (Past 12 Hours) Vital Signs Temp Pulse Pulse Resp BP Pulse Ox O2 Del Method 12/15/22 16:14 36.5 C 68 18 114/50 L 92 Room Air 12/15/22 15:33 54 L 12/15/22 12:20 36.3 C L 63 18 107/48 L 95 Room Air 12/15/22 07:30 36.9 C 81 18 123/67 94 Room Air 12/15/22 07:39 Room Air 12/15/22 07:16 58 L Resident Activity Tracking Resident Involvement: Resident Care Provided Care Provided: Adult Hospital Medicine (6) Breast cancer Breast location: unspecified site of breast Estrogen receptor status: unspecified Laterality: left Patient sex: female Qualified Code(s): C50.912 - Malignant neoplasm of unspecified site of left female breast
[2022-12-16] MEDS: LANTUS PER UNIT CHARGE SQ SCH ×3 (00:57→13:12)
[2022-12-16] MEDS: HEPARIN SOD 5,000 UNIT/0.5 ML VIAL SQ SCH ×3 (05:35→21:20)
[2022-12-16 07:08] LABS: Basophils # (auto) 0.03 K/uL (0-0.2); Basophils % (auto) 0.4 %; Eosinophils # (auto) 0.08 K/uL (0-0.50); Eosinophils % (auto) 1.1 %; Hematocrit (blood only) 24.4 % (37.0-47.0); Hemoglobin 7.6 g/dl (12.0-16.0); Immature Granulocytes # (auto) 0.04 K/uL (0.01-0.20); Immature Granulocytes % (auto) 0.5 %; Lymphocytes # (auto) 1.02 K/uL (1.2-3.4); Mean Corpuscular Hemoglobin 33.2 pg (25.0-34.0); Mean Corpuscular Hgb Conc 31.1 g/dL (32.0-36.0); Mean Corpuscular Volume 106.6 fL (80.0-100.0); Mean Platelet Volume 10.9 fL (9.4-12.4); Monocytes # (auto) 0.36 K/uL (0.11-0.59); Monocytes % (auto) 4.9 %; Neutrophils # (auto) 5.77 K/uL (1.40-6.50); Neutrophils % (auto) 79.1 %; Platelet Count 163 K/uL (130-400); RDW Coefficient of Variation 16.3 % (11.5-14.5); RDW Standard Deviation 64.1 fL (36.4-46.3); Red Blood Count 2.29 M/uL (4.20-5.40)
[2022-12-16 07:27] LABS: INR 1.1 (0.9-1.1)
[2022-12-16 07:28] LABS: Albumin Level 3.4 gm/dl (3.4-5.0); BUN Creatinine Ratio 27.3 (10-20); Bilirubin,Total 0.4 mg/dl (0.2-1.0); Calcium 7.7 mg/dl (8.6-10.3); Est GFR (African American) 11.1 ml/min; Est GFR (Non-African American) 9.6 ml/min; Globulin 3.3 gm/dl (2.5-4.0); Magnesium 2.5 mg/dl (1.7-2.4); Phosphorus 6.2 mg/dl (2.5-4.9); Potassium 4.2 mmol/L (3.5-5.1); Total Protein 6.7 gm/dl (6.0-8.3)
[2022-12-16 07:35] LABS: Polychromasia 1+
[2022-12-16] MEDS: INSULIN ASPART PER UNIT CHARGE SC SCH ×4 (08:03→21:19)
[2022-12-16] MEDS ORDERED: SEVELAMER HCL 800 MG TABLET PO SCH (09:00)
[2022-12-16] MEDS: allopurinoL 100 MG TAB PO SCH (10:04)
[2022-12-16] MEDS: SODIUM BICARBONATE 650 MG TAB PO SCH (10:06)
[2022-12-16] MEDS: PANTOprazole 40 MG TAB PO SCH (10:06)
[2022-12-16] MEDS: VENLAFAXINE HCL XR 75 MG CAPXR PO SCH (10:07)
[2022-12-16] MEDS: SEVELAMER HCL 800 MG TABLET PO SCH ×2 (10:07→17:58)
[2022-12-16] MEDS: FUROSEMIDE 40 MG/4 ML VIAL IV SCH ×3 (10:08→21:21)
[2022-12-16] MEDS: METOPROLOL SUCC 25MG EXT REL TAB PO SCH (10:08)
[2022-12-16] MEDS: predniSONE 5 MG TAB PO SCH (10:08)
[2022-12-16] MEDS: IRON SUCROSE 300 MG in SODIUM CHLORIDE 0.9% 250 ML IV SCH (10:09)
[2022-12-16] MEDS ORDERED: metOLazone 2.5 MG TABLET PO ONE (11:30)
--- NOTE | 2022-12-16 11:41 | Nephrology Progress Note ---
Date of Service December 16, 2022 Assessment & Plan (1) JEFFREY (acute kidney injury): Plan: * JEFFREY due to systolic CHF. Renal function remains relatively stable. Electrolyte balance is acceptable. Patient would like to avoid dialysis if possible. Will continue to diurese * Elevated BUN in part related to steroid therapy. No uremic symptoms or pericardial rub at this time (2) Hyperkalemia: Plan: * Resolved w/ low potassium diet and IV diuretic therapy * Advised patient to avoid salt substitutes (3) CKD (chronic kidney disease) stage 5, GFR less than 15 ml/min: Plan: * Baseline Cr 3.5-4.0 w/ EGFR 10 cc/min. Prior evaluation has revealed normal size kidneys without hydronephrosis. UPCR 0.4. * Discussed VISITOR SERVICES SPECIALIST w/ patient. She is familiar w/ HD. She required acute dialysis during a prior hospitalization. Patient does not wish to pursue VISITOR SERVICES SPECIALIST at this time but notes that she may be open to accepting dialysis "if it is absolutely necessary" * Serum bicarbonate has corrected. Continue NaHCO3 650 mg daily (4) Acute on chronic combined systolic (congestive) and diastolic (congestive) heart failure: Plan: * LE swelling may be related to Fulvestrant therapy and recent discontinuation of diuretic therapy * Continue Furosemide 40 mg IV TID * Will provide one dose Metolazone 2.5 mg po x1 today * Monitor kidney function, UO and volume status closely (5) Hypercalcemia: Plan: * Corrected w/ Prednisone therapy * Serum Ca now low. Will reduce Prednisone to 2.5 mg daily and monitor serum Ca (6) Anemia: Plan: * Day #2 of 4 IV Venofer * Epogen 20.000 units SQ x1 administered 12/15/22 (7) Breast cancer: Plan: * Metastatic to spine * On Ibrance therapy and monthly Fulvestrant * Patient is due for next dose of Fulvestrant 12/21/22. She would like Oncology here to provide medication if she is still hospitalized Admission and Anticipated Discharge Date Admission Date: December 13, 2022 Subjective Ms. Beyer was evaluated in her hospital room this morning. She good UO but notes that she has tense LE edema w/ weeping bullae Review of Systems Constitutional: no fever Eyes: no worsening vision Ear, Nose, Mouth, Throat: no problem reported Respiratory: no cough and no dyspnea Cardiovascular: no chest pain and no dyspnea Gastrointestinal: no abdominal pain, no nausea, no vomiting and no diarrhea/loose stools Integumentary: leg swelling Physical Exam Constitutional: no acute distress Eyes: PERRL, conjunctivae normal, anicteric sclerae ENMT: external ear and nose normal, oropharynx normal Neck: trachea midline, no thyromegaly Respiratory: normal respiratory effort, lungs clear to auscultation Cardiovascular: Rate/Rhythm: regular rate and regular rhythm Extremities: + edema (3+ pitting pretibial edema) Gastrointestinal (Abdomen): normal bowel sounds, soft, nontender, no hepatosplenomegaly Neurologic: awake; not confused Results & Data Vital Signs (Past 12 Hours) Vital Signs Temp Pulse Pulse Resp BP Pulse Ox O2 Del Method 12/16/22 07:47 36.4 C L 72 18 122/54 L 97 Room Air 12/16/22 07:18 75 12/16/22 03:04 36.5 C 68 20 117/57 L 92 Room Air 12/15/22 23:54 71 Laboratory Results Laboratory Tests 12/16/22 12/16/22 05:53 05:53 WBC 7.30 Hgb 7.6 L Hct 24.4 L Plt Count 163 Sodium 141 Potassium 4.2 Chloride 105 Carbon Dioxide 24 BUN 117 H Creatinine 4.28 H Glucose 58 L Laboratory Tests 12/16/22 05:53 Calcium 7.7 L Albumin 3.4 PG Care Time/CCT Total # of Minutes Spent Total Time Spent with Patient: Total time spent is greater than 50% in coordination of care (as documented) at patient's floor/unit and/or counseling patient: Coding Level of Care Code 33464 SUB INP/OBS CARE 3/50MIN Diagnoses JEFFREY (acute kidney injury) N17.9 Hyperkalemia E87.5 CKD (chronic kidney disease) stage 5, GFR less than 15 ml/min N18.5 Acute on chronic combined systolic (congestive) and diastolic (congestive) heart failure I50.43 Hypercalcemia E83.52 Anemia D64.9 Breast cancer C50.912 Breast location: unspecified site of breast Estrogen receptor status: unspecified Laterality: left Patient sex: female (7) Breast cancer Breast location: unspecified site of breast Estrogen receptor status: unspecified Laterality: left Patient sex: female Qualified Code(s): C50.912 - Malignant neoplasm of unspecified site of left female breast
--- NOTE | 2022-12-16 19:32 | Hospitalist Progress Note ---
Date of Service December 16, 2022 Assessment & Plan (1) Acute on chronic combined systolic (congestive) and diastolic (congestive) heart failure: Plan: 72-year-old woman with medical history significant for breast cancer (bone mets- at [facility] [place], on Ibrance), CKD 4, DM2, HFrEF (40 to 45%), MCKENZIE, GERD, hypertension, dyslipidemia who presented with SOB, weight gain, pedal edema x4 days, admitted for management of acute on chronic CHF. Acute on chronic HFrEF -On admission, BNP 1987, troponin 47.4 creatinine 4.09, K+ 5.6. -Because of exacerbation appears to be due to not taking Lasix since 12/10 (patient misunderstood physician instruction to stop taking as needed p.m. Lasix dose, stopped taking Lasix altogether). * IV Lasix 40 mg 3 times daily; metoprolol 25 mg p.o. daily * Low-sodium diet (2 g daily) * Daily weights, I's and O's. Diuresing to goal weight of 110 kg (weight at last discharge). * Currently on heparin 7500 units SQ every 8 hours * Nephro consult: Monitor renal function, volume status closely. Consider bumetanide therapy as outpatient. Hyperphosphatemia -Phosphorus 6.2 this morning. -Patient is already on sevelamer 800 mg daily. * Increased sevelamer 800 mg 3 times daily, per protocol. * Trend labs Elevated troponin -47.4 on admission. Increased to peak of 332.9. Now plateaued, downtrending. -Patient denied chest pain from symptomatic onset through admission and this morning. Review of labs show patient has had elevated troponins as high as 32,648.5 about a month ago. Low suspicion at this time for [place]. Suspect demand ischemia from exacerbation. Hyperkalemia -5.6 on admission. Resolved on low potassium diet, IV Lasix, IV calcium gluconate x1 g. * Trend daily labs Right lower extremity wound * BLE dressings CKD 4 -Patient follows [facility], Dr. Varner. Baseline creatinine 3.5-4 with EGFR of 10 cc/min. -Per nephro consult, patient actually stage V. Patient does not wish to pursue BASS FISHER at this time but will accept dialysis if absolutely necessary. * Sodium bicarb 650 mg daily (lowered from twice daily to reduce sodium load). * Continue home allopurinol, sevelamer Anemia -Iron saturation 30% with ferritin 396. * IV iron sucrose (Venofer) 300 mg daily scheduled * SQ Epogen x1 dose. Breast cancer [place] [facility]ce[place] monthly fulvestrant. GERD * Protonix 40 mg daily p.o. Hypertension * Continue home metoprolol * IV Lasix as above. DM2 -Patient on Lantus 22 units twice daily at home. -Patient's caregiver insists on administering insulin to patient herself. Signed form allowing her to administer. Nursing usually in the room to watch her give insulin. * Lantus SQ 10 units twice daily. * SSI ACHS * Continue to monitor Code: Full code Dispo: Med-Surg telemetry FEN/GI: Low-sodium diet (2 g) DVT Prophylaxis: Heparin 7500 units every 8 hours PT/OT: Yes Consults: Nephrology (2) Elevated troponin: (3) Hyperkalemia: (4) Hypercalcemia: (5) Chronic kidney disease, stage 4 (severe): (6) Breast cancer: (7) MCKENZIE (nonalcoholic steatohepatitis): (8) GERD (gastroesophageal reflux disease): (9) HTN (hypertension): Admission and Anticipated Discharge Date Admission Date: December 13, 2022 Supervising Physician Co-Signing Physician Notes 72-year-old female with past medical history significant for metastatic breast cancer (on fluvestrant and ibrance), HFrEF, type 1 AV block, CKD 4, type 2 diabetes, hypertension, hyperlipidemia, MCKENZIE, GERD who presented with worsening shortness of breath on admission for CHF exacerbation. Diuresis improved with TID dosing and addition of metolazone. LE remain edematous but patient now ambulating more to bathroom. Continue to monitor BG closely. I personally examined the patient and verified all barrett points of history and exam, discussed case, and agree with decision making and plan documented by Dr. Juarez. Review of Systems Review of Systems: All systems reviewed & are unremarkable except as noted in HPI & below Physical Exam Physical Exam: General: Morbidly obese woman in no acute distress HEENT: PERRLA. Normal conjunctiva, anicteric sclera. Oropharynx normal. Respiratory: Normal respiratory effort, CTABL. Diminished breath sounds bilaterally Cardiovascular: RRR without murmurs, gallops, or rubs. Bilateral pitting LE edema L >R. GI: Soft abdomen with normal bowel sounds heard on auscultation. Nontender x4 quadrants Skin: Open sore on RLE. Appears to be oozing serous fluid. Neuro: Alert and oriented x3. Results & Data Results & Data Vital Signs (Past 12 Hours) Vital Signs Temp Pulse Pulse Resp BP Pulse Ox O2 Del Method 12/16/22 14:26 71 12/16/22 14:45 36.7 C 72 18 136/75 97 Room Air 12/16/22 12:06 Room Air 12/16/22 11:50 36.5 C 60 18 124/67 92 Room Air 12/16/22 07:47 36.4 C L 72 18 122/54 L 97 Room Air Resident Activity Tracking Resident Involvement: Resident Care Provided Care Provided: Adult Hospital Medicine (6) Breast cancer Breast location: unspecified site of breast Estrogen receptor status: unspecified Laterality: left Patient sex: female Qualified Code(s): C50.912 - Malignant neoplasm of unspecified site of left female breast
[2022-12-17] MEDS: LANTUS PER UNIT CHARGE SQ SCH ×2 (00:33→12:27)
[2022-12-17] MEDS: HEPARIN SOD 5,000 UNIT/0.5 ML VIAL SQ SCH ×3 (05:33→21:16)
[2022-12-17 07:28] LABS: Hematocrit (blood only) 24.4 % (37.0-47.0); Hemoglobin 7.7 g/dl (12.0-16.0); Mean Corpuscular Hemoglobin 33.3 pg (25.0-34.0); Mean Corpuscular Hgb Conc 31.6 g/dL (32.0-36.0); Mean Corpuscular Volume 105.6 fL (80.0-100.0); Mean Platelet Volume 10.5 fL (9.4-12.4); Nucleated RBC # (auto) 0.05 K/uL (0-0.12); Nucleated RBC % (auto) 0.6 %; Platelet Count 162 K/uL (130-400); RDW Coefficient of Variation 16.6 % (11.5-14.5); RDW Standard Deviation 63.2 fL (36.4-46.3); Red Blood Count 2.31 M/uL (4.20-5.40)
[2022-12-17 08:01] LABS: BUN Creatinine Ratio 25.1 (10-20); Calcium 7.5 mg/dl (8.6-10.3); Creatinine Clr Calc Pharmacy 12.3 ml/min; Est GFR (African American) 9.9 ml/min; Est GFR (Non-African American) 8.5 ml/min; Magnesium 2.5 mg/dl (1.7-2.4); Phosphorus 5.9 mg/dl (2.5-4.9); Potassium 4.1 mmol/L (3.5-5.1)
--- NOTE | 2022-12-17 08:15 | Hospitalist Progress Note ---
Date of Service December 17, 2022 Assessment & Plan (1) Acute on chronic combined systolic (congestive) and diastolic (congestive) heart failure: Plan: 72-year-old woman with medical history significant for breast cancer (bone mets- at [facility] [place], on Ibrance), CKD 4, DM2, HFrEF (40 to 45%), MCKENZIE, GERD, hypertension, dyslipidemia who presented with SOB, weight gain, pedal edema x4 days, admitted for management of acute on chronic CHF. Acute on chronic HFrEF -On admission, BNP 1987, troponin 47.4 creatinine 4.09, K+ 5.6. -Because of exacerbation appears to be due to not taking Lasix since 12/10 (patient misunderstood physician instruction to stop taking as needed p.m. Lasix dose, stopped taking Lasix altogether). * IV Lasix 40 mg 3 times daily; metoprolol 25 mg p.o. daily * Low-sodium diet (2 g daily) * Daily weights, I's and O's. Diuresing to goal weight of 110 kg (weight at last discharge). * Currently on heparin 7500 units SQ every 8 hours * Nephro consult: Monitor renal function, volume status closely. Consider bumetanide therapy as outpatient. --- Patient requires ongoing diuresis, lungs CTAB, LE edema improving but remains significant Hyperphosphatemia -Phosphorus 6.2 this morning. -Patient is already on sevelamer 800 mg daily. * Increased sevelamer 800 mg 3 times daily, per protocol. * Trend labs --- Encouraged ongoing use of Renagel Elevated troponin -47.4 on admission. Increased to peak of 332.9. Now plateaued, downtrending. -Patient denied chest pain from symptomatic onset through admission and this morning. Review of labs show patient has had elevated troponins as high as 32,648.5 about a month ago. Low suspicion at this time for [place]. Suspect demand ischemia from exacerbation. Hyperkalemia -5.6 on admission. Resolved on low potassium diet, IV Lasix, IV calcium gluconate x1 g. * Trend daily labs Right lower extremity wound/Edema * BLE dressings --- Continue dressings and supportive elevation of LE when sitting --- Continue diuresis CKD 4 -[facility], Dr. Varner. Baseline creatinine 3.5-4 with EGFR of 10 cc/min. -Per nephro consult, patient actually stage V. Patient does not wish to pursue MALT HOUSE KILN OPERATOR at this time but will accept dialysis if absolutely necessary. * Sodium bicarb 650 mg daily (lowered from twice daily to reduce sodium load). * Continue home allopurinol, sevelamer --- Ongoing management with diuresis, NaHCO3, allopurinol, and sevelamer, patient's goal to avoid MALT HOUSE KILN OPERATOR, Nephrology following Anemia -Iron saturation 30% with ferritin 396. * IV iron sucrose (Venofer) 300 mg daily scheduled * SQ Epogen x1 dose. --- Hgb stable at 7.7 (rising), continue to follow Breast cancer [place] [facility] [place] Receives monthly fulvestrant. --- Will require chemotherapy treat w/in the next 4 days GERD * Protonix 40 mg daily p.o. Hypertension * Continue home metoprolol * IV Lasix as above. DM2 -Patient on Lantus 22 units twice daily at home. -Patient's caregiver insists on administering insulin to patient herself. Signed form allowing her to administer. Nursing usually in the room to watch her give insulin. * Lantus SQ 10 units twice daily. * SSI ACHS * Continue to monitor --- Caregiver continues to administer patient's DM management Code: Full code Dispo: Med-Surg telemetry FEN/GI: Low-sodium diet (2 g) DVT Prophylaxis: Heparin 7500 units every 8 hours PT/OT: Yes Consults: Nephrology (2) Elevated troponin: (3) Hyperkalemia: (4) Hypercalcemia: (5) Chronic kidney disease, stage 4 (severe): (6) Breast cancer: (7) MCKENZIE (nonalcoholic steatohepatitis): (8) GERD (gastroesophageal reflux disease): (9) HTN (hypertension): Admission and Anticipated Discharge Date Admission Date: December 13, 2022 Supervising Physician Co-Signing Physician Notes I personally examined the patient and verified all barrett points of history and exam, discussed case, and agree with decision making and plan documented by Dr. Sin. Hold morning Lasix and continue with IV Lasix BID. recheck Cr tomorrow and continue following recommendations of care by Nephrology. Subjective 12/17/22: Patient notes she is feeling much improved today, she notes that her LE swelling is improved and she has been urinating frequently. She endorses nausea when she takes her Renagel and believes that this would be improved if she had more carbs/dense foods in her meals. Patient denies any chest pain, dyspnea, headaches, fevers or chills. She notes that she was having abdominal discomfort, but as she urinates more, this is improving. Patient's caregiver was present and contributing to the conversation. Review of Systems Review of Systems: As per HPI Physical Exam Physical Exam: General: Obesity, NAD, pleasantly conversive Resp: normal respiratory effort, no wheezing, rhonchi or rales, CTAB Cardio: RRR, normal S1 and S2, no MRG, no JVD GI: Distended by adiposity, soft, normoactive bowel sounds, no TTP, no rebound or guarding Neuro: Alert and oriented x3. LE: Significant bilateral lower extremity edema (2+ to ankle, 3+ on dorsal feet), left>right, palpable pulses, capillary refill <3s Results & Data Results & Data Vital Signs (Past 12 Hours) Vital Signs Temp Pulse Pulse Resp BP Pulse Ox O2 Del Method 12/17/22 07:35 36.5 C 62 16 135/64 92 Room Air 12/17/22 07:15 60 12/17/22 03:25 36.4 C L 65 20 132/71 94 Room Air 12/16/22 22:14 73 12/16/22 23:54 Room Air 12/16/22 22:00 36.6 C 77 20 129/71 95 Room Air Resident Activity Tracking Resident Involvement: Resident Care Provided Care Provided: Adult Hospital Medicine (6) Breast cancer Breast location: unspecified site of breast Estrogen receptor status: unspecified Laterality: left Patient sex: female Qualified Code(s): C50.912 - Malignant neoplasm of unspecified site of left female breast
--- NOTE | 2022-12-17 08:50 | Nephrology Progress Note ---
Date of Service December 17, 2022 Assessment & Plan (1) JEFFREY (acute kidney injury): Plan: * JEFFREY due to systolic CHF. Renal function remains relatively stable. Electrolyte balance is acceptable. Patient would like to avoid dialysis if possible. Will continue to diurese * Elevated BUN in part related to steroid therapy. No uremic symptoms or pericardial rub at this time (2) Hyperkalemia: Plan: * Resolved w/ low potassium diet and IV diuretic therapy * Advised patient to avoid salt substitutes (3) CKD (chronic kidney disease) stage 5, GFR less than 15 ml/min: Plan: * Baseline Cr 3.5-4.0 w/ EGFR 10 cc/min. Prior evaluation has revealed normal size kidneys without hydronephrosis. UPCR 0.4. * Discussed CROSSING WATCHMAN w/ patient. She is familiar w/ HD. She required acute dialysis during a prior hospitalization. Patient does not wish to pursue CROSSING WATCHMAN at this time but notes that she may be open to accepting dialysis "if it is absolutely necessary" * Serum bicarbonate has corrected. Continue NaHCO3 650 mg daily (4) Acute on chronic combined systolic (congestive) and diastolic (congestive) heart failure: Plan: * LE swelling may be related to Fulvestrant therapy and recent discontinuation of diuretic therapy * Continue Furosemide 40 mg IV TID * Hold metolazone * Monitor kidney function, UO and volume status closely (5) Anemia: Plan: * Day #3 of 4 IV Venofer * Epogen 20.000 units SQ x1 administered 12/15/22 (6) Hypercalcemia: Plan: * Corrected w/ Prednisone therapy * Serum Ca now low. Will reduce Prednisone to 2.5 mg daily and monitor serum Ca (7) Breast cancer: Plan: * Metastatic to spine * On Ibrance therapy and monthly Fulvestrant * Patient is due for next dose of Fulvestrant 12/21/22. She would like Oncology here to provide medication if she is still hospitalized Admission and Anticipated Discharge Date Admission Date: December 13, 2022 Subjective Ms. Beyer was evaluated in her hospital room this morning. She reports good response to combination diuretic therapy. Legs remain swollen. She denies uremic symptoms Review of Systems Constitutional: no fever Eyes: no worsening vision Ear, Nose, Mouth, Throat: no problem reported Respiratory: no cough and no dyspnea Cardiovascular: no chest pain and no dyspnea Gastrointestinal: no abdominal pain, no nausea, no vomiting and no diarrhea/loose stools Integumentary: leg swelling Physical Exam Constitutional: no acute distress Eyes: PERRL, conjunctivae normal, anicteric sclerae ENMT: external ear and nose normal, oropharynx normal Neck: trachea midline, no thyromegaly Respiratory: normal respiratory effort, lungs clear to auscultation Cardiovascular: Rate/Rhythm: regular rate and regular rhythm Extremities: + edema (3+ pitting pretibial edema) Gastrointestinal (Abdomen): normal bowel sounds, soft, nontender, no hepatosplenomegaly Neurologic: awake; not confused Results & Data Vital Signs (Past 12 Hours) Vital Signs Temp Pulse Pulse Resp BP Pulse Ox O2 Del Method 12/17/22 07:35 36.5 C 62 16 135/64 92 Room Air 12/17/22 07:15 60 12/17/22 03:25 36.4 C L 65 20 132/71 94 Room Air 12/16/22 22:14 73 12/16/22 23:54 Room Air 12/16/22 22:00 36.6 C 77 20 129/71 95 Room Air Laboratory Results Laboratory Tests 12/17/22 12/17/22 06:40 06:40 WBC 7.70 Hgb 7.7 L Hct 24.4 L Plt Count 162 Sodium 142 Potassium 4.1 Chloride 105 Carbon Dioxide 24 BUN 118 H Creatinine 4.70 H* D Glucose 94 Calcium 7.5 L Phosphorus 5.9 H Magnesium 2.5 H PG Care Time/CCT Total # of Minutes Spent Total Time Spent with Patient: Total time spent is greater than 50% in coordination of care (as documented) at patient's floor/unit and/or counseling patient: Coding Level of Care Code 71496 SUB INP/OBS CARE 3/50MIN Diagnoses JEFFREY (acute kidney injury) N17.9 Hyperkalemia E87.5 CKD (chronic kidney disease) stage 5, GFR less than 15 ml/min N18.5 Acute on chronic combined systolic (congestive) and diastolic (congestive) heart failure I50.43 Anemia D64.9 Hypercalcemia E83.52 Breast cancer C50.912 Breast location: unspecified site of breast Estrogen receptor status: unspecified Laterality: left Patient sex: female (7) Breast cancer Breast location: unspecified site of breast Estrogen receptor status: unspecified Laterality: left Patient sex: female Qualified Code(s): C50.912 - Malignant neoplasm of unspecified site of left female breast
[2022-12-17] MEDS: PANTOprazole 40 MG TAB PO SCH (09:04)
[2022-12-17] MEDS: predniSONE 5 MG TAB PO SCH (09:04)
[2022-12-17] MEDS: VENLAFAXINE HCL XR 75 MG CAPXR PO SCH (09:04)
[2022-12-17] MEDS: SODIUM BICARBONATE 650 MG TAB PO SCH (09:05)
[2022-12-17] MEDS: INSULIN ASPART PER UNIT CHARGE SC SCH ×4 (09:08→21:15)
[2022-12-17] MEDS: FUROSEMIDE 40 MG/4 ML VIAL IV SCH ×3 (10:46→21:15)
[2022-12-17] MEDS: SEVELAMER HCL 800 MG TABLET PO SCH ×3 (11:05→18:30)
[2022-12-17] MEDS: IRON SUCROSE 300 MG in SODIUM CHLORIDE 0.9% 250 ML IV SCH (11:08)
[2022-12-17] MEDS: METOPROLOL SUCC 25MG EXT REL TAB PO SCH (11:08)
[2022-12-17] MEDS: PROMETHAZINE HCL 25 MG TAB PO PRN (18:30)
[2022-12-18] MEDS: LANTUS PER UNIT CHARGE SQ SCH ×2 (00:19→13:22)
[2022-12-18] MEDS: HEPARIN SOD 5,000 UNIT/0.5 ML VIAL SQ SCH ×3 (05:53→21:43)
--- NOTE | 2022-12-18 07:15 | Hospitalist Progress Note ---
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 CHF exacerbation, acute on chronic HFmrEF - On admission, BNP 1987. - Exacerbation appears to from patient stopping all Lasix since 12/10/22 (see below). Also considered ischemic cardiomyopathy (see below). Prior to 11/04/22 admission, was prescribed Lasix 20mg PO BID. This was changed to Lasix 40mg PO BID upon 11/08/22 hosp discharge. At 11/16/22 nephro visit, the Lasix was decreased to 40mg daily for progressively worsening renal function, w/ an additional 40mg dose prn for significant wt gain. 12/09/22 PCP phone message: Patient had been taking 40mg daily w/ 20mg prn for leg swelling. PCP instructed patient to hold the prn dose until next nephro visit. Patient misunderstood this to have meant stopping all Lasix. - Strict Is/Os. Net neg 2.7L since 12/13/22, 2 unmeasured voids. - 12/13/22 cxr w/ bilateral airspace opacities likely to represent pulm edema and R>L pleural effusions w/ dependent consolidation. Cardiomegaly w/o evidence of congestive failure. - 12/18/22 cxr per my read: slightly improved bilateral airspace opacities. Pleural effusions unchanged. - s/p 1 dose of metolazone 2.5mg PO on 12/16/22. Was on ~BID dosing of IV Lasix 40mg (3 doses on 12/16/22) from 12/14/22-12/17/22). Metolazone discontinued and Lasix will be held in setting of uptrending creatinine to 4.99. - Difficult volume status. No dyspnea and is saturating 93 on room air. Will stop diuresis at this time. Upon discharge, will need to decide on outpatient regimen. JEFFREY on CKD4 - Follows [facility] [place]. Baseline Cr 3-4 with EGFR of 10 cc/min. Uptrending to Cr of 4.99 this admission in setting of diuresis. Diuresis currently held. - Patient does not wish to pursue EVENT REPRESENTATIVE at this time but will accept dialysis if absolutely necessary. Hx of short-term dialysis in 2018 postoperatively. - Sodium bicarb 650 mg daily (lowered from twice daily to reduce sodium load). - Avoid nephrotoxic agents. Renally dose medications. Reduced tramadol dose. - Continue home allopurinol, sevelamer - No indication for acute dialysis at this time. - Consider short course of gentle IV fluids if Cr continues to uptrend. Hypocalcemia - Check ionized calcium. - Hypercalcemic at 10/2022 admission. 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 Per nephro, will decrease to prednisone 2.5mg. Elevated high sensitivity troponin, peaked at 332.9 - No chest pain this admission. Likely 2/2 demand ischemia. - Elevated hstrop to 32,648.5 during 11/05/22 last admission. Cardiology consult had recommended cardiac cath as unclear if type I vs type II [place] at the time. Patient had refused. 11/04/22 ecg w/ new LBBB. - No LBBB on 12/14/22 ecg. - Will repeat echo given the above. Last echo on 11/05/21. Breast cancer -[place] [facility] [place] Receives monthly fulvestrant. Next dose due 12/21/22? Will need to clarify. Hyperphosphatemia - Peaked at 6.2, since downtrended to 5.2. - Has been refusing some doses of sevelamer. Hyperkalemia, resolved Right lower extremity wound/bilateral lower extremity edema - Wound dressings. Encourage ambulation. Anemia - Hb stable in the 7s, baseline is low 8s. - IV Venofer and Epogen per nephro. GERD - Continue Protonix 40mg PO. Hypertension - Continue home metoprolol succinate 25 mg PO. Type 2 diabetes mellitus - SSI and Lantus BID while inpatient. Home regimen is 22u BID. Patient's caregiver to administer personally. Form signed. - Patient on Lantus 22 units twice daily at home. - Patient's caregiver insists on administering insulin to patient herself. Signed form allowing her to administer. Nursing usually in the room to watch her give insulin. diet: DM2, dialysis renal ppx: sq heparin 7500u q8h, patient has been refusing code: full dispo: med tele (2) Elevated troponin: (3) Hyperkalemia: (4) Hypercalcemia: (5) Chronic kidney disease, stage 4 (severe): (6) Breast cancer: (7) MCKENZIE (nonalcoholic steatohepatitis): (8) GERD (gastroesophageal reflux disease): (9) HTN (hypertension): (10) JEFFREY (acute kidney injury): Admission and Anticipated Discharge Date Admission Date: December 13, 2022 Supervising Physician Co-Signing Physician Notes I personally examined the patient and verified all barrett points of history and exam, discussed case, and agree with decision making and plan documented by Dr. Mccauley. Hold all diuretics for remainder of today. recheck Cr tomorrow and continue following recommendations of care by Nephrology. Subjective Feeling well. Breathing is good. Ankle swelling improving, but not at goal. Ate breakfast. No other symptoms. Refusing Renagel for second day. Held AM dose of IV Lasix while awaiting clarification of vol status and discussion w/ team given rising Cr. Review of Systems Review of Systems: All systems reviewed & are unremarkable except as noted in HPI & below Physical Exam Physical Exam: General: Grossly A&O. NAD. Cooperative. HEENT: Atraumatic, normocephalic. could not visualize jvd w/ sitting in chair. Pulm: diminished lungs, slightly quieter on L. no crackles. Cardiac: RRR, -mrg. 3+ BLE. Abdominal: Nontender, nondistended, soft. Integ: R ankle wrapped (for seeping edema). LLE venous stasis dermatitis. Results & Data Results & Data Vital Signs (Past 12 Hours) Vital Signs Temp Pulse Pulse Resp BP BP Pulse Ox 12/18/22 04:06 36.8 C 65 18 120/71 93 12/17/22 22:37 73 12/18/22 00:06 36.9 C 74 18 124/71 96 12/17/22 21:05 73 132/57 L 94 12/17/22 19:54 36.7 C 60 18 109/47 L 97 12/17/22 19:46 O2 Del Method 12/18/22 04:06 Room Air 12/17/22 22:37 12/18/22 00:06 Room Air 12/17/22 21:05 Room Air 12/17/22 19:54 Room Air 12/17/22 19:46 Room Air Resident Activity Tracking Resident Involvement: Resident Care Provided Care Provided: Adult Hospital Medicine (6) Breast cancer Breast location: unspecified site of breast Estrogen receptor status: unspecified Laterality: left Patient sex: female Qualified Code(s): C50.912 - Malignant neoplasm of unspecified site of left female breast
[2022-12-18 08:27] LABS: Hematocrit (blood only) 23.7 % (37.0-47.0); Hemoglobin 7.4 g/dl (12.0-16.0); Mean Corpuscular Hemoglobin 33.2 pg (25.0-34.0); Mean Corpuscular Hgb Conc 31.2 g/dL (32.0-36.0); Mean Corpuscular Volume 106.3 fL (80.0-100.0); Mean Platelet Volume 10.7 fL (9.4-12.4); Nucleated RBC # (auto) 0.07 K/uL (0-0.12); Nucleated RBC % (auto) 0.8 %; Platelet Count 161 K/uL (130-400); RDW Coefficient of Variation 16.5 % (11.5-14.5); RDW Standard Deviation 62.7 fL (36.4-46.3); Red Blood Count 2.23 M/uL (4.20-5.40); White Blood Count 8.45 K/ul (4.8-10.8)
[2022-12-18 08:40] LABS: Albumin Level 3.4 gm/dl (3.4-5.0); BUN Creatinine Ratio 22.8 (10-20); Calcium 7.3 mg/dl (8.6-10.3); Creatinine Clr Calc Pharmacy 11.9 ml/min; Est GFR (African American) 9.2 ml/min; Est GFR (Non-African American) 7.9 ml/min; Magnesium 2.5 mg/dl (1.7-2.4); Phosphorus 5.2 mg/dl (2.5-4.9); Potassium 3.8 mmol/L (3.5-5.1)
[2022-12-18] MEDS: INSULIN ASPART PER UNIT CHARGE SC SCH ×4 (09:10→21:43)
[2022-12-18] MEDS: SEVELAMER HCL 800 MG TABLET PO SCH ×3 (09:42→17:44)
[2022-12-18] MEDS: IRON SUCROSE 300 MG in SODIUM CHLORIDE 0.9% 250 ML IV SCH (09:45)
[2022-12-18] MEDS: allopurinoL 100 MG TAB PO SCH (09:46)
[2022-12-18] MEDS: METOPROLOL SUCC 25MG EXT REL TAB PO SCH (09:48)
[2022-12-18] MEDS: predniSONE 5 MG TAB PO SCH (09:48)
[2022-12-18] MEDS: VENLAFAXINE HCL XR 75 MG CAPXR PO SCH (09:48)
[2022-12-18] MEDS: PANTOprazole 40 MG TAB PO SCH (09:48)
[2022-12-18] MEDS: SODIUM BICARBONATE 650 MG TAB PO SCH (09:49)
[2022-12-18] MEDS: FUROSEMIDE 40 MG/4 ML VIAL IV SCH (10:06)
--- NOTE | 2022-12-18 12:27 | Nephrology Progress Note ---
Date of Service December 18, 2022 Assessment & Plan (1) JEFFREY (acute kidney injury): (2) Chronic kidney disease, stage 4 (severe): (3) Anemia: (4) Fluid overload: (5) Hypercalcemia: (6) Hyperkalemia: Plan 72 y o f with Stage IV CKD, b/l cr lately around 4.0, Admitted with acute kidney injury, hyperkalemia and volume overload. Since admission she was getting IV Lasix and received 1 dose of metolazone and overall she has been staying net negative. Total she is more than 3 L negative and overnight she is more than 800 ml negative. Renal function progressively worsening in fact creatinine today up to 5.0 although electrolyte has been staying acceptable. She reports decent urine output, shortness of breath resolved, although she has persistent bilateral lower extremity edema but she feels slight improvement. --considering significant worsening of renal function and overall net negative, will hold off on diuretics today and liberalize her fluid intake. Continue to monitor intake and output closely. No acute indication for dialysis at this time however she has many risk factor for progressive worsening of renal function and in fact her creatinine has been staying around 4 for last almost 2 months associated with anemia, hyperphosphatemia, hyperkalemia and metabolic acidosis which indicates advanced/end-stage kidney disease and may need to consider dialysis in near future if no further improvement in renal function. Had detailed discussion with Pauline. --Epogen 32331 x 1 dose today --cxr to f/u on b/l pleural effusion Will follow. Admission and Anticipated Discharge Date Admission Date: December 13, 2022 Subjective Pauline was seen and evaluated this am. She denies shortness of breath, chest pressure but is thirsty with dry mouth and she feels the fluid restriction is difficult for her. Continues to have decent urine output with net negative more than 800 ml over last 24 hours on IV Lasix. Blood pressure well controlled. Renal function continues to worse but acceptable electrolytes. Hb low. Review of Systems Review of Systems: Detailed review of system was otherwise unremarkable except mentioned above. Physical Exam Constitutional: WD/WN, vitals as above no acute distress Respiratory: no respiratory distress Auscultation: + diminished lung sounds Cardiovascular: Rate/Rhythm: regular rate and regular rhythm Extremities: + edema Skin: + turgor decreased and + erythema (left le); no rashes Neurologic: no focal motor deficits Psychiatric: Orientation: alert and oriented x 3 Affect: euthymic affect Results & Data Vital Signs (Past 12 Hours) Vital Signs Temp Pulse Pulse Resp BP Pulse Ox O2 Del Method 12/18/22 11:27 36.5 C 68 16 132/58 L 95 Room Air 12/18/22 10:56 Room Air 12/18/22 07:13 62 12/18/22 07:12 36.8 C 67 16 128/60 92 Room Air 12/18/22 04:06 36.8 C 65 18 120/71 93 Room Air PG Care Time/CCT Total # of Minutes Spent Total Time Spent with Patient: Total time spent is greater than 50% in coordination of care (as documented) at patient's floor/unit and/or counseling patient: Coding Level of Care Code 81714 SUB INP/OBS CARE 3/50MIN Diagnoses JEFFREY (acute kidney injury) N17.9 Chronic kidney disease, stage 4 (severe) N18.4 Anemia D64.9 Fluid overload E87.70 Hypercalcemia E83.52 Hyperkalemia E87.5
[2022-12-18] MEDS ORDERED: EPOETIN ALFA 40,000 UNITS/ML VIAL SQ STA (12:36)
[2022-12-18] MEDS ORDERED: traMADol HCL 50 MG TABLET PO PRN (15:28)
[2022-12-18 16:28] LABS: BUN Creatinine Ratio 23.1 (10-20); Calcium 7.4 mg/dl (8.6-10.3); Creatinine Clr Calc Pharmacy 12.1 ml/min; Est GFR (African American) 9.4 ml/min; Est GFR (Non-African American) 8.1 ml/min; Magnesium 2.4 mg/dl (1.7-2.4); Phosphorus 5.2 mg/dl (2.5-4.9); Potassium 4.2 mmol/L (3.5-5.1)
[2022-12-18] MEDS: PROMETHAZINE HCL 25 MG TAB PO PRN (17:47)
--- NOTE | 2022-12-18 18:19 | XRay Report ---
SINGLE VIEW CHEST CLINICAL HISTORY: Dyspnea. FINDINGS: An AP, portable, upright chest radiograph is compared to study dated 12/13/2022 and correlat ed with chest CT dated 11/05/2022. The heart is enlarged noting atherosclerotic calcification of the t horacic aorta. There is pulmonary vascular congestion. Bilateral airspace opacities likely represent mild pulmonary edema. There are layering pleural effusions with dependent consolidation. No pneumotho rax is seen. The skeletal structures are osteopenic. Postsurgical change in noted in the right proxim al humerus. IMPRESSION: 1. Cardiomegaly without evidence of congestive failure. 2. Bilateral airspace opacities likely represent pulmonary edema. Clinical correlation required and r adiographic follow-up to resolution is recommended. 3. Layering pleural effusions with dependent consolidation. ACT 112: Negative or not required by law. Electronically signed by: Sukh Hilario M.D. 12/18/2022 6:18 PM
[2022-12-19] MEDS: LANTUS PER UNIT CHARGE SQ SCH ×2 (00:11→12:26)
[2022-12-19] MEDS: HEPARIN SOD 5,000 UNIT/0.5 ML VIAL SQ SCH ×3 (05:01→21:13)
[2022-12-19 07:02] LABS: Hemoglobin 7.2 g/dl (12.0-16.0); Mean Corpuscular Hemoglobin 33.3 pg (25.0-34.0); Mean Corpuscular Hgb Conc 31.3 g/dL (32.0-36.0); Mean Corpuscular Volume 106.5 fL (80.0-100.0); Mean Platelet Volume 10.5 fL (9.4-12.4); Nucleated RBC % (auto) 1.2 %; Platelet Count 158 K/uL (130-400); RDW Coefficient of Variation 16.5 % (11.5-14.5); RDW Standard Deviation 62.9 fL (36.4-46.3); Red Blood Count 2.16 M/uL (4.20-5.40); White Blood Count 8.16 K/ul (4.8-10.8)
[2022-12-19] MEDS ORDERED: STAT IV STA ×2 (07:11→10:25)
--- NOTE | 2022-12-19 07:17 | Hospitalist Progress Note ---
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 Acute on Chronic HFmrEF, resolving Exacerbation appears to from patient stopping all Lasix since 12/10/22 (see below). Also considered ischemic cardiomyopathy (see below). Prior to 11/04/22 admission, was prescribed Lasix 20mg PO BID. This was changed to Lasix 40mg PO BID upon 11/08/22 hosp discharge. At 11/16/22 nephro visit, the Lasix was decreased to 40mg daily for progressively worsening renal function, w/ an additional 40mg dose prn for significant wt gain. 12/09/22 PCP phone message: Patient had been taking 40mg daily w/ 20mg prn for leg swelling. PCP instructed patient to hold the prn dose until next nephro visit. Patient misunderstood this to have meant stopping all Lasix. - Strict Is/Os - s/p 1 dose of metolazone 2.5mg PO on 12/16/22. Was on ~BID dosing of IV Lasix 40mg (3 doses on 12/16/22) from 12/14/22-12/17/22). Metolazone discontinued and Lasix will be held in setting of uptrending creatinine to 4.99. - Difficult volume status. No dyspnea and is saturating 93 on room air. Will stop diuresis at this time. Upon discharge, will need to decide on outpatient regimen. JEFFREY on CKD4 [place] [facility] [place] Baseline Cr 3-4 with EGFR of 10 cc/min. Uptrending to Cr of 4.99 this admission in setting of diuresis. Diuresis currently held as of 12/18, with improvement of Cr to 4.8 this morning, although still elevated. - Patient does not wish to pursue CERAMIC RESTORER at this time but will accept dialysis if absolutely necessary. Hx of short-term dialysis in 2018 postoperatively. - Sodium bicarb 650 mg daily (lowered from twice daily to reduce sodium load). - Avoid nephrotoxic agents. Renally dose medications. Reduced tramadol dose. - Continue home allopurinol, sevelamer - No indication for acute dialysis at this time Hypocalcemia iCa 0.91. S/p Calcium gluconate 1gm with minimal improvement to 0.92. Suspect due to CKD. - will give another 1gm calcium and re-check iCa in AM - Hypercalcemic at 10/2022 admission. 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 Per nephro, will decrease to prednisone 2.5mg. Elevated high sensitivity troponin, peaked at 332.9 - No chest pain this admission. Likely 2/2 demand ischemia. - Elevated hstrop to 32,648.5 during 11/05/22 last admission. Cardiology consult had recommended cardiac cath as unclear if type I vs type II [place] at the time. Patient had refused. 11/04/22 ecg w/ new LBBB. - No LBBB on 12/14/22 ecg. - Will repeat echo given the above. Last echo on 11/05/21. Breast cancer -[place] [facility] [place]. Receives monthly fulvestrant. Next dose due 12/21/22? Will need to clarify. Hyperphosphatemia - Peaked at 6.2, since downtrended to 5.2. - Has been refusing some doses of sevelamer. Right lower extremity wound/bilateral lower extremity edema - Wound dressings. Encourage ambulation. Anemia - Hb stable in the 7s, baseline is low 8s. - IV Venofer and Epogen per nephro. GERD - Continue Protonix 40mg PO. Hypertension - Continue home metoprolol succinate 25 mg PO. Type 2 diabetes mellitus - SSI and Lantus BID while inpatient. Home regimen is 22u BID. Patient's caregiver to administer personally. Form signed. - Patient on Lantus 22 units twice daily at home. - Patient's caregiver insists on administering insulin to patient herself. Signed form allowing her to administer. Nursing usually in the room to watch her give insulin. diet: DM2, dialysis renal ppx: sq heparin 7500u q8h, patient has been refusing code: full dispo: med tele (2) Elevated troponin: (3) Hyperkalemia: (4) Hypercalcemia: (5) Chronic kidney disease, stage 4 (severe): (6) Breast cancer: (7) MCKENZIE (nonalcoholic steatohepatitis): (8) GERD (gastroesophageal reflux disease): (9) HTN (hypertension): (10) JEFFREY (acute kidney injury): Admission and Anticipated Discharge Date Admission Date: December 13, 2022 Subjective Patient denies SOB or confusion. Still having some difficulty initiating urinary stream and feels her urine output is slightly low, but this has been going on for some time and is stable overall. Review of Systems Review of Systems: All systems reviewed & are unremarkable except as noted in HPI & below Physical Exam Physical Exam: General: A&Ox3. NAD. Cooperative. HEENT: Atraumatic, normocephalic. Pulm: CTAB A&P. -wheezes, -rales, -rhonchi. Symmetrical chest rise. No increase work of breathing. No respiratory distress. Cardiac: RRR, -mrg. Radial pulses intact and symmetrical. Abdominal: soft, non-tender, non-distended, BS x 4 Extremities: 3+ pitting edema to knees bilaterally Results & Data Results & Data Vital Signs (Past 12 Hours) Vital Signs Temp Pulse Pulse Resp BP Pulse Ox O2 Del Method 12/19/22 07:09 57 L 12/19/22 03:14 36.8 C 71 18 120/69 95 Room Air 12/18/22 22:36 66 12/18/22 23:45 36.7 C 61 18 127/67 95 Room Air 12/18/22 22:16 Room Air 12/18/22 19:46 36.6 C 77 20 106/53 L 94 Room Air Resident Activity Tracking Resident Involvement: Resident Care Provided Care Provided: Adult Hospital Medicine (6) Breast cancer Breast location: unspecified site of breast Estrogen receptor status: unspecified Laterality: left Patient sex: female Qualified Code(s): C50.912 - Malignant neoplasm of unspecified site of left female breast
[2022-12-19 07:28] LABS: Albumin Level 3.3 gm/dl (3.4-5.0); BUN Creatinine Ratio 23.5 (10-20); Calcium 7.1 mg/dl (8.6-10.3); Creatinine Clr Calc Pharmacy 12.4 ml/min; Est GFR (African American) 9.6 ml/min; Est GFR (Non-African American) 8.3 ml/min; Magnesium 2.5 mg/dl (1.7-2.4); Phosphorus 4.9 mg/dl (2.5-4.9); Potassium 3.7 mmol/L (3.5-5.1)
[2022-12-19] MEDS ORDERED: CALCIUM GLUCONATE 10% 1,000 MG in DEXTROSE 5% 50 ML IV ONE ×2 (07:30→11:00)
[2022-12-19] MEDS: SODIUM BICARBONATE 650 MG TAB PO SCH (07:38)
[2022-12-19] MEDS: allopurinoL 100 MG TAB PO SCH (07:39)
[2022-12-19] MEDS: PANTOprazole 40 MG TAB PO SCH (07:39)
[2022-12-19] MEDS: METOPROLOL SUCC 25MG EXT REL TAB PO SCH (07:43)
[2022-12-19] MEDS: VENLAFAXINE HCL XR 75 MG CAPXR PO SCH (07:44)
[2022-12-19] MEDS: predniSONE 2.5 MG TAB PO SCH (07:47)
[2022-12-19] MEDS: SEVELAMER HCL 800 MG TABLET PO SCH ×3 (07:56→18:50)
[2022-12-19] MEDS: PROMETHAZINE HCL 25 MG TAB PO PRN ×2 (07:56→18:50)
[2022-12-19] MEDS: INSULIN ASPART PER UNIT CHARGE SC SCH ×3 (08:58→18:11)
--- NOTE | 2022-12-19 12:09 | Nephrology Progress Note ---
Date of Service December 19, 2022 Assessment & Plan (1) JEFFREY (acute kidney injury): (2) Chronic kidney disease, stage 4 (severe): (3) Anemia: (4) Fluid overload: (5) Hypercalcemia: (6) Hyperkalemia: Plan 72 y o f with Stage IV CKD, b/l cr lately around 4.0, Admitted with acute kidney injury, hyperkalemia and volume overload. Since admission she was getting IV Lasix and received 1 dose of metolazone and overall she has been staying net negative. Total she is more than 3 L negative and overnight she is more than 800 ml negative. Renal function staying relatively stable and electrolyte acceptable off of diuretics since yesterday however urine output dropped and weight increased. -- resume Lasix at 40 mg IV twice daily, monitor intake and output aim for net negative. Continue to monitor intake and output closely. No acute indication for dialysis at this time however she has many risk factor for progressive worsening of renal function and in fact her creatinine has been staying around 4 for last almost 2 months associated with anemia, hyperphosphatemia, hyperkalemia and metabolic acidosis which indicates advanced/end-stage kidney disease. if no further improvement in renal function, may need to consider renal replacement therapy in next few days. Had detailed discussion with Pauline, although this is not something she wants but if renal function worsened, she seems open to consider dialysis. --Epogen 47247 x 1 dose given on 12/18/2022 Will follow. Admission and Anticipated Discharge Date Admission Date: December 13, 2022 Subjective Pauline was seen and evaluated this am. She denies shortness of breath, chest pressure But overall she feels bloated. urine output dropped off of diuretic and she was almost 0.5 L positive with weight gain. Hemoglobin dropped to 7.2, electrolyte staying relatively stable without further worsening of renal function. Blood pressure well controlled. Review of Systems Review of Systems: Detailed review of system was otherwise unremarkable except mentioned above. Physical Exam Constitutional: WD/WN, vitals as above no acute distress Respiratory: no respiratory distress Auscultation: + diminished lung sounds Cardiovascular: Rate/Rhythm: regular rate and regular rhythm Extremities: + edema Skin: + turgor decreased and + erythema (left le); no rashes Neurologic: no focal motor deficits Psychiatric: Orientation: alert and oriented x 3 Affect: euthymic affect Results & Data Vital Signs (Past 12 Hours) Vital Signs Temp Pulse Pulse Resp BP Pulse Ox O2 Del Method 12/19/22 11:46 36.7 C 65 16 123/72 94 Room Air 12/19/22 11:25 Room Air 12/19/22 07:59 36.7 C 73 16 131/80 93 Room Air 12/19/22 07:09 57 L 12/19/22 03:14 36.8 C 71 18 120/69 95 Room Air PG Care Time/CCT Total # of Minutes Spent Total Time Spent with Patient: Total time spent is greater than 50% in coordination of care (as documented) at patient's floor/unit and/or counseling patient: Coding Level of Care Code 70611 SUB INP/OBS CARE 3/50MIN Diagnoses JEFFREY (acute kidney injury) N17.9 Chronic kidney disease, stage 4 (severe) N18.4 Anemia D64.9 Fluid overload E87.70 Hypercalcemia E83.52 Hyperkalemia E87.5
[2022-12-19] MEDS: FUROSEMIDE 40 MG/4 ML VIAL IV SCH ×2 (12:27→20:54)
[2022-12-20] MEDS: INSULIN ASPART PER UNIT CHARGE SC SCH ×5 (00:11→21:28)
[2022-12-20] MEDS: LANTUS PER UNIT CHARGE SQ SCH ×3 (00:11→23:37)
[2022-12-20] MEDS: HEPARIN SOD 5,000 UNIT/0.5 ML VIAL SQ SCH ×3 (05:42→21:28)
--- NOTE | 2022-12-20 07:38 | Hospitalist Progress Note ---
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 Acute on Chronic HFmrEF, resolving -Exacerbation appears to from patient stopping all Lasix since 12/10/22 (see below). Also considered ischemic cardiomyopathy (see below). -Prior to 11/04/22 admission, was prescribed Lasix 20mg PO BID. This was changed to Lasix 40mg PO BID upon 11/08/22 hosp discharge. At 11/16/22 nephro visit, the Lasix was decreased to 40mg daily for progressively worsening renal function, w/ an additional 40mg dose prn for significant wt gain. -12/09/22 PCP phone message: Patient had been taking 40mg daily w/ 20mg prn for leg swelling. PCP instructed patient to hold the prn dose until next nephro visit. Patient misunderstood this to have meant stopping all Lasix. - Strict Is/Os originally lost 3L since admission, however balance now positive - s/p 1 dose of metolazone 2.5mg PO on 12/16/22. Was on ~BID dosing of IV Lasix 40mg (3 doses on 12/16/22) from 12/14/22-12/17/22). Metolazone discontinued. Lasix given 12/19 40mg IV bid. 12/20 nephro suggested increased of lasix to 40mg IV TID, creat has increased to 5.03 lasix on hold at this time - Difficult volume status. No dyspnea and is saturating 93 on room air. Upon discharge, will need to decide on outpatient regimen. JEFFREY on CKD4 - Follows [facility] [place] nephro. Baseline Cr 3-4 with EGFR of 10 cc/min. Uptrending to Cr of 5.03 this admission in setting of diuresis. - Patient does not wish to pursue [employer] at this time but will accept dialysis if absolutely necessary. Hx of short-term dialysis in 2018 postoperatively. - Sodium bicarb 650 mg daily (lowered from twice daily to reduce sodium load). - Avoid nephrotoxic agents. Renally dose medications. Reduced tramadol dose. - Continue home allopurinol, sevelamer - No indication for acute dialysis at this time Hypocalcemia iCa 0.91. S/p Calcium gluconate 1gm with minimal improvement to 0.92. Suspect due to CKD. - will give another 1gm calcium and re-check iCa in AM - Hypercalcemic at 10/2022 admission. 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 Per nephro, will decrease to prednisone 2.5mg. Elevated high sensitivity troponin, peaked at 332.9 - No chest pain this admission. Likely 2/2 demand ischemia. - Elevated hstrop to 32,648.5 during 11/05/22 last admission. Cardiology consult had recommended cardiac cath as unclear if type I vs type II UT at the time. Patient had refused. 11/04/22 ecg w/ new LBBB. - No LBBB on 12/14/22 ecg. - Will repeat echo given the above. Last echo on 11/05/21. [place] cancer [place] [facility] [place] fulvestrant. Next dose due 12/21/22 -this medication is not available in [facility], patient received email that she could have it administered here, however questions regarding transport and insurance Hyperphosphatemia - Peaked at 6.2, since downtrended to 5.2. - Has been refusing some doses of sevelamer. Right lower extremity wound/bilateral lower extremity edema - Wound dressings. Encourage ambulation. Anemia - Hb stable in the 7s, baseline is low 8s. - IV Venofer and Epogen per nephro. GERD - Continue Protonix 40mg PO. Hypertension - Continue home metoprolol succinate 25 mg PO. Type 2 diabetes mellitus - SSI and Lantus BID while inpatient. Home regimen is 22u BID. Patient's caregiver to administer personally. Form signed. - Patient on Lantus 22 units twice daily at home. - Patient's caregiver insists on administering insulin to patient herself. Signed form allowing her to administer. Nursing usually in the room to watch her give insulin. diet: DM2, dialysis renal ppx: sq heparin 7500u q8h, patient has been refusing code: full dispo: med I AM AT (2) Elevated troponin: (3) Hyperkalemia: (4) Hypercalcemia: (5) Chronic kidney disease, stage 4 (severe): (6) Breast cancer: (7) MCKENZIE (nonalcoholic steatohepatitis): (8) GERD (gastroesophageal reflux disease): (9) HTN (hypertension): (10) JEFFREY (acute kidney injury): Admission and Anticipated Discharge Date Admission Date: December 13, 2022 Supervising Physician Co-Signing Physician Notes I personally examined the patient and verified all barrett points of history and exam, discussed case, and agree with decision making with Dr Reyes. Feeling okay, basically just as swollen as before, may be slightly better than when she first came in. Has not had any breathing issues. Notes that with hip pain and leg issues, she is not able to walk much. Vitals noted, in general she is awake and alert pleasant no distress. HEENT normocephalic atraumatic mucous membranes moist. Breathing unlabored no accessory muscle use good effort. Bilateral lower extremity edema now wrapped. CBC, basic metabolic panel, albumin and phos noted Fluid overloadsystolic CHF, CKD, venous stasisfluid retention in spite of escalated diuretics, and rising creatinine. Either approaching a cardiorenal type of a point, or possibly remaining fluid is venous compartment sequestered. Compression, mobilization as best as possible. Discussing with nephrologyholding diuretics for now, continue to follow very closely. DVT prophylaxis heparin subcu Subjective Patient seen at bedside, calm comfortable cooperative. Patient states she feels less swollen than she was upon admission, however still has increased swelling in her thighs, legs and feet. She understands that the lasix is worsening her kidney function and is not working effectively for her at this time, as a large portion of her fluid retention may be due to venous stasis. Patient states her ambulation difficulties stem from feet length discrepancy, hip arthritis, nerve ablation, and unable to fit her feet in her specialized orthotics due to swelling, she is aware walking would likely help her leg swelling. Patient states she has received an email allowing her to get her chemotherapy fulvestrant at [facility], however is unaware of the specifics, knows it is due to be injected tomorrow. Patient denies any SOB, nausea, abd pain. Physical Exam Constitutional: well developed, well nourished, + morbidly obese, + frail appearing, cooperative and comfortable Eyes: PERRL, conjunctivae normal, anicteric sclerae ENMT: external ear and nose normal, oropharynx normal Neck: + thick neck Respiratory: normal respiratory effort, lungs clear to auscultation Cardiovascular: Rate/Rhythm: regular rate and regular rhythm Extremities: + edema (+2 pitting up to thigh) Gastrointestinal (Abdomen): Inspection/Auscultation: + abdomen distended Percussion/Palpation: abdomen soft; abdomen nontender Skin: increased erythema without increased pain or warm noted in left lower extremity Results & Data Results & Data Vital Signs (Past 12 Hours) Vital Signs Temp Pulse Pulse Resp BP Pulse Ox O2 Del Method 12/20/22 03:56 36.8 C 68 18 108/64 93 Room Air 12/19/22 22:27 66 12/19/22 23:30 36.6 C 65 18 113/67 100 Room Air 12/19/22 22:14 Room Air 12/19/22 19:43 36.6 C 65 18 125/62 94 Room Air Resident Activity Tracking Resident Involvement: Resident Care Provided Care Provided: Adult Hospital Medicine (6) Breast cancer Breast location: unspecified site of breast Estrogen receptor status: unspecified Laterality: left Patient sex: female Qualified Code(s): C50.912 - Malignant neoplasm of unspecified site of left female breast
[2022-12-20] MEDS: FUROSEMIDE 40 MG/4 ML VIAL IV SCH ×2 (08:30→14:47)
[2022-12-20] MEDS: SEVELAMER HCL 800 MG TABLET PO SCH ×3 (08:30→17:13)
[2022-12-20] MEDS: allopurinoL 100 MG TAB PO SCH (08:30)
[2022-12-20] MEDS: PANTOprazole 40 MG TAB PO SCH (08:31)
[2022-12-20] MEDS: SODIUM BICARBONATE 650 MG TAB PO SCH (08:31)
[2022-12-20] MEDS: METOPROLOL SUCC 25MG EXT REL TAB PO SCH (08:32)
[2022-12-20] MEDS: predniSONE 2.5 MG TAB PO SCH (08:32)
[2022-12-20] MEDS: VENLAFAXINE HCL XR 75 MG CAPXR PO SCH (08:32)
[2022-12-20] MEDS: PROMETHAZINE HCL 25 MG TAB PO PRN ×2 (08:35→17:13)
[2022-12-20 09:20] LABS: Basophils # (auto) 0.02 K/uL (0-0.2); Basophils % (auto) 0.3 %; Eosinophils # (auto) 0.06 K/uL (0-0.50); Eosinophils % (auto) 0.8 %; Hematocrit (blood only) 23.5 % (37.0-47.0); Hemoglobin 7.2 g/dl (12.0-16.0); Immature Granulocytes # (auto) 0.07 K/uL (0.01-0.20); Lymphocytes # (auto) 0.69 K/uL (1.2-3.4); Lymphocytes % (auto) 9.7 %; Mean Corpuscular Hemoglobin 33.2 pg (25.0-34.0); Mean Corpuscular Hgb Conc 30.6 g/dL (32.0-36.0); Mean Corpuscular Volume 108.3 fL (80.0-100.0); Monocytes # (auto) 0.46 K/uL (0.11-0.59); Monocytes % (auto) 6.5 %; Neutrophils # (auto) 5.82 K/uL (1.40-6.50); Neutrophils % (auto) 81.7 %; Nucleated RBC # (auto) 0.09 K/uL (0-0.12); Nucleated RBC % (auto) 1.3 %; Platelet Count 163 K/uL (130-400); RDW Coefficient of Variation 16.7 % (11.5-14.5); RDW Standard Deviation 63.5 fL (36.4-46.3); Red Blood Count 2.17 M/uL (4.20-5.40); White Blood Count 7.12 K/ul (4.8-10.8)
[2022-12-20 09:43] LABS: Albumin Level 3.3 gm/dl (3.4-5.0); BUN Creatinine Ratio 22.1 (10-20); Calcium 7.3 mg/dl (8.6-10.3); Creatinine Clr Calc Pharmacy 11.9 ml/min; Est GFR (African American) 9.1 ml/min; Est GFR (Non-African American) 7.9 ml/min; Phosphorus 5.1 mg/dl (2.5-4.9); Potassium 3.8 mmol/L (3.5-5.1)
[2022-12-20 09:48] LABS: Anisocytosis Present; Macrocytosis Present; Polychromasia 1+
--- NOTE | 2022-12-20 10:02 | XCELERA ---
[id number]
--- NOTE | 2022-12-20 14:52 | Nephrology Progress Note ---
Date of Service December 20, 2022 Assessment & Plan (1) JEFFREY (acute kidney injury): (2) Chronic kidney disease, stage 4 (severe): (3) Anemia: (4) Fluid overload: (5) Hypercalcemia: (6) Hyperkalemia: Plan 72 y o f with Stage IV CKD, b/l cr lately around 4.0, Admitted with acute kidney injury, hyperkalemia and volume overload. Since admission she was getting IV Lasix and received 1 dose of metolazone and overall she has been staying net negative. Total she is more than 3 L negative and overnight she is more than 800 ml negative. Renal function continues to worsen despite staying overall net positive and decreased urine output, electrolyte acceptable. -- increase Lasix 40 mg IV 3 times daily, monitor intake and output aim for net negative. Continue to monitor intake and output closely. No acute indication for dialysis at this time however she has many risk factor for progressive worsening of renal function and in fact her creatinine has been staying around 4 for last almost 2 months associated with anemia, hyperphosphatemia, hyperkalemia and metabolic acidosis which indicates advanced/end-stage kidney disease. if no further improvement in renal function, may need to consider renal replacement therapy in next few days. Had detailed discussion with Pauline, although this is not something she wants but if renal function worsened, she seems open to consider dialysis. --Epogen 95261 x 1 dose given on 12/18/2022 Will follow. Admission and Anticipated Discharge Date Admission Date: December 13, 2022 Subjective Pauline was seen and evaluated this am. She denies shortness of breath, chest pressure but continues to feel bloated. denies nausea, vomiting Urine output remain slow and overall net positive however kidney function continues to worsen, electrolyte staying relatively stable. Blood pressure well controlled. Review of Systems Review of Systems: Detailed review of system was otherwise unremarkable except mentioned above. Physical Exam Constitutional: WD/WN, vitals as above no acute distress Respiratory: no respiratory distress Auscultation: + diminished lung sounds Cardiovascular: Rate/Rhythm: regular rate and regular rhythm Extremities: + edema Skin: + erythema (left le); no rashes Neurologic: no focal motor deficits Psychiatric: Orientation: alert and oriented x 3 Affect: euthymic affect Results & Data Vital Signs (Past 12 Hours) Vital Signs Temp Pulse Pulse Resp BP Pulse Ox O2 Del Method 12/20/22 11:46 36.8 C 62 16 120/70 93 Room Air 12/20/22 11:25 Room Air 12/20/22 08:11 36.7 C 82 16 129/73 90 Room Air 12/20/22 07:37 70 12/20/22 03:56 36.8 C 68 18 108/64 93 Room Air PG Care Time/CCT Total # of Minutes Spent Total Time Spent with Patient: Total time spent is greater than 50% in coordination of care (as documented) at patient's floor/unit and/or counseling patient: Coding Level of Care Code 39849 SUB INP/OBS CARE 3/50MIN Diagnoses JEFFREY (acute kidney injury) N17.9 Chronic kidney disease, stage 4 (severe) N18.4 Anemia D64.9 Fluid overload E87.70 Hypercalcemia E83.52 Hyperkalemia E87.5
--- NOTE | 2022-12-20 17:03 | Billing Data ---
Date of Service December 20, 2022 Coding Level of Care Code 80284 SUB INP/OBS CARE MIN
[2022-12-21] MEDS: HEPARIN SOD 5,000 UNIT/0.5 ML VIAL SQ SCH ×3 (05:01→22:32)
--- NOTE | 2022-12-21 07:16 | Hospitalist Progress Note ---
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 Acute on Chronic HFmrEF, resolving -Exacerbation appears to from patient stopping all Lasix since 12/10/22 (see below). Also considered ischemic cardiomyopathy (see below). -Prior to 11/04/22 admission, was prescribed Lasix 20mg PO BID. This was changed to Lasix 40mg PO BID upon 11/08/22 hosp discharge. At 11/16/22 nephro visit, the Lasix was decreased to 40mg daily for progressively worsening renal function, w/ an additional 40mg dose prn for significant wt gain. -12/09/22 PCP phone message: Patient had been taking 40mg daily w/ 20mg prn for leg swelling. PCP instructed patient to hold the prn dose until next nephro visit. Patient misunderstood this to have meant stopping all Lasix. - Strict Is/Os originally lost 3L since admission, however balance now positive - s/p 1 dose of metolazone 2.5mg PO on 12/16/22. Was on ~BID dosing of IV Lasix 40mg (3 doses on 12/16/22) from 12/14/22-12/17/22). Metolazone discontinued. Lasix given 12/19 40mg IV bid. 12/20 nephro increased of lasix to 40mg IV TID, creat has increased to 5.13 - 12/21/22 tried albumin 25% q8r 3 doses with lasix given afterwards to assist in fluid removal - Difficult volume status. No dyspnea and is saturating 93 on room air. Upon discharge, will need to decide on outpatient regimen. JEFFREY on CKD4 - Follows [facility] [place]. Baseline Cr 3-4 with EGFR of 10 cc/min. Uptrending to Cr of 5.03 this admission in setting of diuresis. - Patient does not wish to pursue [employer] at this time but will accept dialysis if absolutely necessary. Hx of short-term dialysis in 2018 postoperatively. - Sodium bicarb 650 mg daily (lowered from twice daily to reduce sodium load). - Avoid nephrotoxic agents. Renally dose medications. Reduced tramadol dose. - Continue home allopurinol, sevelamer - No indication for acute dialysis at this time Venous Stasis -significant fluid retention in b/l lower extremities and lower abd, difficult to remove with lasix -patient on KODY wraps, compression stocking, SCDs -patient fitted with new orthotics to assist in walking -PT/OT ordered, patient educated to participate in PT Hypocalcemia iCa 0.91. S/p Calcium gluconate 1gm with minimal improvement to 0.92. Suspect due to CKD. - will give another 1gm calcium and re-check iCa in AM - Hypercalcemic at 10/2022 admission. 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 Per nephro, will decrease to prednisone 2.5mg. Elevated high sensitivity troponin, peaked at 332.9 - No chest pain this admission. Likely 2/2 demand ischemia. - Elevated hstrop to 32,648.5 during 11/05/22 last admission. Cardiology consult had recommended cardiac cath as unclear if type I vs type II PR at the time. Patient had refused. 11/04/22 ecg w/ new LBBB. - No LBBB on 12/14/22 ecg. - Will repeat echo given the above. Last echo on 11/05/21. Breast cancer -[place] [facility] [place]. Receives monthly fulvestrant. Next dose due 12/21/22 -this medication is not available in [facility], patient received email that she could have it administered here, however [facility] has no paper records, working on obtaining medication from [facility] Hyperphosphatemia - Peaked at 6.2, since downtrended to 5.2. - Has been refusing some doses of sevelamer due to nausea Right lower extremity wound/bilateral lower extremity edema - Wound dressings. Encourage ambulation. Anemia - Hb stable in the 7s, baseline is low 8s. - IV Venofer and Epogen per nephro. GERD - Continue Protonix 40mg PO. Hypertension - Continue home metoprolol succinate 25 mg PO. Type 2 diabetes mellitus - SSI and Lantus BID while inpatient. Home regimen is 22u BID. Patient's caregiver to administer personally. Form signed. - Patient on Lantus 22 units twice daily at home. - Patient's caregiver insists on administering insulin to patient herself. Signed form allowing her to administer. Nursing usually in the room to watch her give insulin. diet: DM2, dialysis renal ppx: sq heparin 7500u q8h, patient has been refusing code: full dispo: med tele (2) Elevated troponin: (3) Hyperkalemia: (4) Hypercalcemia: (5) Chronic kidney disease, stage 4 (severe): (6) Breast cancer: (7) MCKENZIE (nonalcoholic steatohepatitis): (8) GERD (gastroesophageal reflux disease): (9) HTN (hypertension): (10) JEFFREY (acute kidney injury): Admission and Anticipated Discharge Date Admission Date: December 13, 2022 Supervising Physician Co-Signing Physician Notes I personally examined the patient and verified all barrett points of history and exam, discussed case, and agree with decision making with Dr Reyes. Feels more or less the same. at bedside. Discussed managementdiuresis, compression, elevation, movement. does note frustration at patient's general lack of movement at home as well. Also discussed fulvestrant dose in my attempts to close the loop on if we actually have the dose, if it is approved/etc., and then being able to administer while inpatient. Vitals noted, in general she is awake and alert pleasant no distress. HEENT normocephalic atraumatic mucous membranes moist. Breathing unlabored no accessory muscle use good effort. Bilateral lower extremity edema now wrapped. CBC, basic metabolic panel, albumin and phos noted Fluid overloadsystolic CHF, CKD, venous stasisfluid retention in spite of escalated diuretics, and rising creatinine. Either approaching a cardiorenal type of a point, or possibly remaining fluid is venous compartment sequestered, probably both. Continue compression, mobilization as best as possible. Lasix/albumin for todayfollow for response. Trying to figure out situation with fulvestrant dose. [facility] does not have record of her. DVT prophylaxis heparin subcu Subjective Patient seen at bedside, calm comfortable cooperative. Discussed with patient necessity of participating with physical therapy, patient understands necessity of compression and movement regarding her fluid. Explained to patient's her current fluid status and difficulties regarding treatment. Unfortunately we have no updates regarding her chemo at this time and are not able to administer it today. Physical Exam Constitutional: well developed, well nourished, + morbidly obese, + frail appearing, cooperative and comfortable Eyes: PERRL, conjunctivae normal, anicteric sclerae ENMT: external ear and nose normal, oropharynx normal Neck: + thick neck Respiratory: normal respiratory effort, lungs clear to auscultation Cardiovascular: Rate/Rhythm: regular rate and regular rhythm Extremities: + edema (+2 pitting up to thigh) Gastrointestinal (Abdomen): Inspection/Auscultation: + abdomen distended Percussion/Palpation: abdomen soft; abdomen nontender Results & Data Results & Data Vital Signs (Past 12 Hours) Vital Signs Temp Pulse Pulse Resp BP Pulse Ox O2 Del Method 12/21/22 07:08 72 12/21/22 02:59 36.7 C 62 18 126/72 95 Room Air 12/21/22 00:16 70 12/20/22 22:59 36.9 C 64 18 115/70 95 Room Air 12/20/22 20:05 36.8 C 71 18 134/74 97 Room Air 12/20/22 19:46 Room Air Resident Activity Tracking Resident Involvement: Resident Care Provided Care Provided: Adult [facility] Medicine (6) Breast cancer Breast location: unspecified site of breast Estrogen receptor status: unspecified Laterality: left Patient sex: female Qualified Code(s): C50.912 - Malignant neoplasm of unspecified site of left female breast
[2022-12-21 08:16] LABS: Hematocrit (blood only) 22.6 % (37.0-47.0); Mean Corpuscular Hemoglobin 33.2 pg (25.0-34.0); Mean Corpuscular Volume 107.1 fL (80.0-100.0); Mean Platelet Volume 10.9 fL (9.4-12.4); Nucleated RBC # (auto) 0.09 K/uL (0-0.12); Nucleated RBC % (auto) 1.4 %; Platelet Count 152 K/uL (130-400); RDW Coefficient of Variation 17.2 % (11.5-14.5); RDW Standard Deviation 62.4 fL (36.4-46.3); Red Blood Count 2.11 M/uL (4.20-5.40); White Blood Count 6.62 K/ul (4.8-10.8)
[2022-12-21 08:56] LABS: Albumin Level 3.2 gm/dl (3.4-5.0); BUN Creatinine Ratio 22.2 (10-20); Calcium 7.1 mg/dl (8.6-10.3); Creatinine Clr Calc Pharmacy 11.7 ml/min; Est GFR (African American) 8.9 ml/min; Est GFR (Non-African American) 7.7 ml/min; Potassium 3.5 mmol/L (3.5-5.1)
[2022-12-21] MEDS: PROMETHAZINE HCL 25 MG TAB PO PRN ×2 (09:15→17:36)
[2022-12-21] MEDS: INSULIN ASPART PER UNIT CHARGE SC SCH ×4 (09:32→20:57)
[2022-12-21] MEDS: SEVELAMER HCL 800 MG TABLET PO SCH ×3 (09:34→17:33)
[2022-12-21] MEDS: PANTOprazole 40 MG TAB PO SCH (09:35)
[2022-12-21] MEDS: allopurinoL 100 MG TAB PO SCH (09:35)
[2022-12-21] MEDS: SODIUM BICARBONATE 650 MG TAB PO SCH (09:37)
[2022-12-21] MEDS: VENLAFAXINE HCL XR 75 MG CAPXR PO SCH (09:37)
[2022-12-21] MEDS: METOPROLOL SUCC 25MG EXT REL TAB PO SCH (09:43)
[2022-12-21] MEDS: ALBUMIN 25% 100 mL 25 GM/100 ML VIAL IV SCH ×2 (11:06→18:50)
[2022-12-21] MEDS: LANTUS PER UNIT CHARGE SQ SCH ×2 (12:51→23:41)
[2022-12-21] MEDS: FUROSEMIDE 40 MG/4 ML VIAL IV SCH ×2 (13:06→20:55)
--- NOTE | 2022-12-21 16:17 | Nephrology Progress Note ---
Date of Service December 21, 2022 Assessment & Plan (1) JEFFREY (acute kidney injury): (2) Chronic kidney disease, stage 4 (severe): (3) Anemia: (4) Fluid overload: (5) Hypercalcemia: (6) Hyperkalemia: Plan 72 y o f with Stage IV CKD, b/l cr lately around 4.0, Admitted with acute kidney injury, hyperkalemia and volume overload. Renal function continues to worsen despite staying overall net positive, electrolyte acceptable. hemoglobin again dropped to 7.0 this morning. --resume Lasix 40 mg IV 3 times daily, monitor intake and output aim for net negative. Continue to monitor intake and output closely. No acute indication for dialysis at this time however she has many risk factor for progressive worsening of renal function and in fact her creatinine has been staying around 4 for last almost 2 months associated with anemia, hyperphosphatemia, hyperkalemia and metabolic acidosis which indicates advanced/end-stage kidney disease. if no further improvement in renal function, may need to consider renal replacement therapy in next few days. Had detailed discussion with Pauline, although this is not something she wants but if renal function worsened, she seems open to consider dialysis. --Epogen 69835 x 1 dose given on 12/18/2022, has adequate iron store, but hemo globin dropped to 7.0. As she is otherwise asymptomatic asymptomatic, will hold off on blood transfusion however if hemoglobin drops further, will need blood transfusion. -- primary team working to see whether he can get Faslodex while she is inpatient. Will follow. Admission and Anticipated Discharge Date Admission Date: December 13, 2022 Subjective Pauline was seen and evaluated this am. She complain of some pain in her left leg as it was wrapped, denies shortness of breath, chest pressure but continues to feel bloated. urine output slightly improved but net positive as she has been off of diuretics since yesterday evening, kidney function continues to worsen, electrolyte staying relatively stable. Blood pressure well controlled. Review of Systems Review of Systems: Detailed review of system was otherwise unremarkable except mentioned above. Physical Exam Constitutional: WD/WN, vitals as above no acute distress Respiratory: no respiratory distress Auscultation: + diminished lung sounds Cardiovascular: Rate/Rhythm: regular rate and regular rhythm Extremities: + edema Skin: + erythema (left le); no rashes Neurologic: no focal motor deficits Psychiatric: Orientation: alert and oriented x 3 Affect: euthymic affect Results & Data Vital Signs (Past 12 Hours) Vital Signs Temp Pulse Pulse Resp BP BP Pulse Ox 12/21/22 16:14 36.4 C L 73 16 98/42 L 93 12/21/22 14:10 59 L 12/21/22 08:13 36.4 C L 70 16 113/57 L 95 12/21/22 07:45 12/21/22 07:08 72 O2 Del Method 12/21/22 16:14 Room Air 12/21/22 14:10 12/21/22 08:13 Room Air 12/21/22 07:45 Room Air 12/21/22 07:08 PG Care Time/CCT Total # of Minutes Spent Total Time Spent with Patient: Total time spent is greater than 50% in coordination of care (as documented) at patient's floor/unit and/or counseling patient: Coding Level of Care Code 79390 SUB INP/OBS CARE 3/50MIN Diagnoses JEFFREY (acute kidney injury) N17.9 Chronic kidney disease, stage 4 (severe) N18.4 Anemia D64.9 Fluid overload E87.70 Hypercalcemia E83.52 Hyperkalemia E87.5
--- NOTE | 2022-12-21 18:17 | Billing Data ---
Date of Service December 21, 2022 Coding Level of Care Code 60793 SUB INP/OBS CARE MIN
[2022-12-22] MEDS: ALBUMIN 25% 100 mL 25 GM/100 ML VIAL IV SCH (02:38)
[2022-12-22] MEDS: FUROSEMIDE 40 MG/4 ML VIAL IV SCH ×3 (04:39→21:04)
[2022-12-22] MEDS: HEPARIN SOD 5,000 UNIT/0.5 ML VIAL SQ SCH ×3 (04:45→21:34)
--- NOTE | 2022-12-22 08:17 | Hospitalist Progress Note ---
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 Acute on Chronic HFmrEF, resolving -Exacerbation appears to from patient stopping all Lasix since 12/10/22 (see below). Also considered ischemic cardiomyopathy (see below). -Prior to 11/04/22 admission, was prescribed Lasix 20mg PO BID. This was changed to Lasix 40mg PO BID upon 11/08/22 hosp discharge. At 11/16/22 nephro visit, the Lasix was decreased to 40mg daily for progressively worsening renal function, w/ an additional 40mg dose prn for significant wt gain. -12/09/22 PCP phone message: Patient had been taking 40mg daily w/ 20mg prn for leg swelling. PCP instructed patient to hold the prn dose until next nephro visit. Patient misunderstood this to have meant stopping all Lasix. - Strict Is/Os originally lost 3L since admission, however balance now positive - s/p 1 dose of metolazone 2.5mg PO on 12/16/22. Was on ~BID dosing of IV Lasix 40mg (3 doses on 12/16/22) from 12/14/22-12/17/22). Metolazone discontinued. Lasix given 12/19 40mg IV bid. 12/20 nephro increased of lasix to 40mg IV TID, creat has increased to 5.13 - 12/21/22 tried albumin 25% q8r 3 doses with lasix given afterwards to assist in fluid removal - Difficult volume status. No dyspnea and is saturating 95 on room air. Upon discharge, will need to decide on outpatient regimen. JEFFREY on CKD4 - [place] [facility] [place] Baseline Cr 3-4 with EGFR of 10 cc/min. Uptrending to Cr of 5.03 this admission in setting of diuresis. - Patient does not wish to pursue [employer] at this time but will accept dialysis if absolutely necessary. Hx of short-term dialysis in 2018 postoperatively. - Sodium bicarb 650 mg daily (lowered from twice daily to reduce sodium load). - Avoid nephrotoxic agents. Renally dose medications. Reduced tramadol dose. - Continue home allopurinol, sevelamer - No indication for acute dialysis at this time Anemia - Hb baseline is low 7-8s. - IV Venofer and Epogen per nephro. -12/22/22 hbg decreased to 6.8 patient symptomatic with fatigue weakness, obtained blood consent, transfused 2U blood Venous Stasis -significant fluid retention in b/l lower extremities and lower abd, difficult to remove with lasix -patient on KODY wraps, compression stocking, SCDs -patient fitted with new orthotics to assist in walking -PT/OT ordered, patient educated to participate in PT Hypocalcemia iCa 0.91. S/p Calcium gluconate 1gm with minimal improvement to 0.92. Suspect due to CKD. - will give another 1gm calcium and re-check iCa in AM - Hypercalcemic at 10/2022 admission. 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 Per nephro, will decrease to prednisone 2.5mg. Elevated high sensitivity troponin, peaked at 332.9 - No chest pain this admission. Likely 2/2 demand ischemia. - Elevated hstrop to 32,648.5 during 11/05/22 last admission. Cardiology consult had recommended cardiac cath as unclear if type I vs type II CO at the time. Patient had refused. 11/04/22 ecg w/ new LBBB. - No LBBB on 12/14/22 ecg. - Will repeat echo given the above. Last echo on 11/05/21. Breast cancer -Follows [facility] [place]. Receives monthly fulvestrant. Next dose due 12/21/22 -this medication is not available in [facility], patient received email that she could have it administered here, however [facility] has no paper records, working on obtaining medication from [facility] -have completed forms to allow hospital pharmacy to have fulvestrant, working with nurse coordinator to have medication transported here Hyperphosphatemia - Peaked at 6.2, since downtrended to 5.2. - Has been refusing some doses of sevelamer due to nausea Right lower extremity wound/bilateral lower extremity edema - Wound dressings. Encourage ambulation. GERD - Continue Protonix 40mg PO. Hypertension - Continue home metoprolol succinate 25 mg PO. Type 2 diabetes mellitus - SSI and Lantus BID while inpatient. Home regimen is 22u BID. Patient's caregiver to administer personally. Form signed. - Patient on Lantus 22 units twice daily at home. - Patient's caregiver insists on administering insulin to patient herself. Signed form allowing her to administer. Nursing usually in the room to watch her give insulin. diet: DM2, dialysis renal ppx: sq heparin 7500u q8h, patient has been refusing code: full dispo: med tele (2) Elevated troponin: (3) Hyperkalemia: (4) Hypercalcemia: (5) Chronic kidney disease, stage 4 (severe): (6) Breast cancer: (7) MCKENZIE (nonalcoholic steatohepatitis): (8) GERD (gastroesophageal reflux disease): (9) HTN (hypertension): (10) JEFFREY (acute kidney injury): Admission and Anticipated Discharge Date Admission Date: December 13, 2022 Supervising Physician Co-Signing Physician Notes I personally examined the patient and verified all barrett points of history and exam, discussed case, and agree with decision making with Dr Reyes. Continues to feel about the same. Unfortunately compression stockings led to a little bit of skin breakdown. SCDs in place now. Fulvestrant appears to be able to be administered here. Finishing paperwork. Vitals noted, in general she is awake and alert pleasant no distress. HEENT normocephalic atraumatic mucous membranes moist. Breathing unlabored no accessory muscle use good effort. Bilateral lower extremity edema persists, SCDs in place. CBC, basic metabolic panel, albumin and phos noted, most notable today is hemoglobin of 6.8 Fluid overloadsystolic CHF, CKD, venous stasisfluid retention in spite of escalated diuretics, and rising creatinine. Either approaching a cardiorenal type of a point, or possibly remaining fluid is venous compartment sequestered, probably both. Continue compression (switched from compression to SCD compression due to skin breakdown), mobilization as best as possible. Lasix/albumin for todayfollow for response. Appears fulvestrant will be able to be administeredfilled out nonformulary request. DVT prophylaxis heparin subcu (anemia is likely from hypoproliferation not blood loss) Subjective Patient seen at bedside in chair. States she is not feeling well today, feels increasingly bloated lethargic, states 'crappy' is a good way to describe it. Patient understands that her hemoglobin levels are low today and she requires blood transfusion. Adele asked if she could donate the blood for transfusion, they understand it would take a week for that process to occur and are ok with normal blood transfusion at this time. Patient asked that her read and sign her blood consent form for her, declined signing it herself. Physical Exam Constitutional: well developed, well nourished, + morbidly obese, + frail appearing, cooperative and comfortable Eyes: PERRL, conjunctivae normal, anicteric sclerae ENMT: external ear and nose normal, oropharynx normal Neck: + thick neck Respiratory: normal respiratory effort, lungs clear to auscultation Cardiovascular: Rate/Rhythm: regular rate and regular rhythm Extremities: + edema (+2 pitting up to thigh) Gastrointestinal (Abdomen): Inspection/Auscultation: + abdomen distended (pitting with palpation) Percussion/Palpation: abdomen soft; abdomen nontender Skin: erythema noted on left lower leg from venous stasis, bandages on right lower leg Results & Data Results & Data Vital Signs (Past 12 Hours) Vital Signs Temp Pulse Pulse Resp BP Pulse Ox O2 Del Method 12/22/22 07:52 Room Air 12/22/22 07:37 36.6 C 62 22 124/68 94 Room Air 12/22/22 07:05 58 L 12/22/22 03:30 36.5 C 59 L 20 122/52 L 95 Room Air 12/22/22 01:07 Room Air 12/21/22 23:47 63 12/21/22 22:57 36.8 C 63 18 123/55 L 96 Room Air Resident Activity Tracking Resident Involvement: Resident Care Provided Care Provided: Adult Hospital Medicine (6) Breast cancer Breast location: unspecified site of breast Estrogen receptor status: u nspecified Laterality: left Patient sex: female Qualified Code(s): C50.912 - Malignant neoplasm of unspecified site of left female breast
[2022-12-22 08:50] LABS: Hematocrit (blood only) 22.1 % (37.0-47.0); Hemoglobin 6.8 g/dl (12.0-16.0); Mean Corpuscular Hemoglobin 33.2 pg (25.0-34.0); Mean Corpuscular Hgb Conc 30.8 g/dL (32.0-36.0); Mean Corpuscular Volume 107.8 fL (80.0-100.0); Mean Platelet Volume 10.9 fL (9.4-12.4); Nucleated RBC % (auto) 1.6 %; Platelet Count 147 K/uL (130-400); RDW Coefficient of Variation 18.1 % (11.5-14.5); RDW Standard Deviation 65.3 fL (36.4-46.3); Red Blood Count 2.05 M/uL (4.20-5.40); White Blood Count 6.19 K/ul (4.8-10.8)
[2022-12-22] MEDS: SEVELAMER HCL 800 MG TABLET PO SCH ×3 (09:29→17:07)
[2022-12-22] MEDS: PANTOprazole 40 MG TAB PO SCH (09:30)
[2022-12-22] MEDS: METOPROLOL SUCC 25MG EXT REL TAB PO SCH (09:31)
[2022-12-22] MEDS: allopurinoL 100 MG TAB PO SCH (09:32)
[2022-12-22] MEDS: VENLAFAXINE HCL XR 75 MG CAPXR PO SCH (09:32)
[2022-12-22] MEDS: SODIUM BICARBONATE 650 MG TAB PO SCH (09:32)
[2022-12-22] MEDS: INSULIN ASPART PER UNIT CHARGE SC SCH ×4 (09:33→20:54)
[2022-12-22 09:37] LABS: Albumin Level 3.8 gm/dl (3.4-5.0); Calcium 7.2 mg/dl (8.6-10.3); Potassium 3.5 mmol/L (3.5-5.1)
[2022-12-22 09:55] LABS: BUN Creatinine Ratio 21.4 (10-20); Creatinine Clr Calc Pharmacy 11.7 ml/min; Est GFR (African American) 8.9 ml/min; Est GFR (Non-African American) 7.7 ml/min; Phosphorus 4.8 mg/dl (2.5-4.9)
[2022-12-22] MEDS ORDERED: SODIUM CHLORIDE 0.9% 250 ML IV PRN (10:09)
[2022-12-22] MEDS: LANTUS PER UNIT CHARGE SQ SCH ×2 (13:08→23:25)
--- NOTE | 2022-12-22 14:44 | Nephrology Progress Note ---
Date of Service December 22, 2022 Assessment & Plan (1) JEFFREY (acute kidney injury): (2) Chronic kidney disease, stage 4 (severe): (3) Anemia: (4) Fluid overload: (5) Hypercalcemia: (6) Hyperkalemia: Plan 72 y o f with Stage IV CKD, b/l cr lately around 4.0, Admitted with acute kidney injury, hyperkalemia and volume overload. hemoglobin dropped to 6.8, received Epogen on 12/18/2022, has adequate iron store, had 2 PRBC on 12/22/2022 the Renal function continues to worsen despite staying overall net positive, electrolyte acceptable. hemoglobin again dropped to 6.8 this morning. Overall feeling poorly, fatigued and low appetite could be some component of uremia however significant anemia probably has a lot to do with how she is feeling as well. -- Recommend 2 PRBC transfusion, Lasix 40 mg IV 3 times daily, monitor intake and output aim for net negative. Continue to monitor intake and output closely. No acute indication for dialysis at this time however she has many risk factor for progressive worsening of renal function and in fact her creatinine has been staying around 4 for last almost 2 months associated with anemia, hyperphosphatemia, hyperkalemia and metabolic acidosis which indicates advanced/end-stage kidney disease. if no further improvement in renal function, may need to consider renal replacement therapy in next 24-48 hours. My concern is if we start her on dialysis, she will have to be on dialysis for good I do not thing we will be able to take her off of dialysis. Had detailed discussion with Pauline, although this is not something she wants but if renal function worsened, she seems open to consider dialysis. --Epogen [id number] x 1 dose given on 12/18/2022, blood transfusion today . -- primary team working to see whether he can get Faslodex while she is inpatient. Will follow. Admission and Anticipated Discharge Date Admission Date: December 13, 2022 Subjective Pauline was seen and evaluated this am. She overall feels poorly this morning, fatigue, low appetite but denies shortness of breath, chest pressure but continues to feel bloated. urine output slightly improved but net positive despite resuming Lasix since yesterday afternoon. kidney function staying somewhat stable without any further improvement in renal function, creatinine staying around 50-5.2, electrolyte staying relatively stable. hemoglobin dropped to 6.8 this morning. Blood pressure well controlled. Review of Systems Review of Systems: Detailed review of system was otherwise unremarkable except mentioned above. Physical Exam Constitutional: WD/WN, vitals as above no acute distress Respiratory: no respiratory distress Auscultation: + diminished lung sounds Cardiovascular: Rate/Rhythm: regular rate and regular rhythm Extremities: + edema Skin: + turgor decreased and + erythema (left le); no rashes Neurologic: no focal motor deficits Psychiatric: Orientation: alert and oriented x 3 Affect: euthymic affect Results & Data Vital Signs (Past 12 Hours) Vital Signs Temp Pulse Pulse Resp BP BP Pulse Ox 12/22/22 13:58 37.2 C 75 18 127/74 96 12/22/22 13:28 36.7 C 59 L 18 113/69 95 12/22/22 13:13 36.4 C L 62 18 111/64 96 12/22/22 12:55 36.6 C 58 L 18 109/64 99 12/22/22 10:51 36.6 C 57 L 20 116/51 L 97 12/22/22 07:52 12/22/22 07:37 36.6 C 62 22 124/68 94 12/22/22 07:05 58 L 12/22/22 03:30 36.5 C 59 L 20 122/52 L 95 O2 Del Method 12/22/22 13:58 12/22/22 13:28 12/22/22 13:13 12/22/22 12:55 12/22/22 10:51 Room Air 12/22/22 07:52 Room Air 12/22/22 07:37 Room Air 12/22/22 07:05 12/22/22 03:30 Room Air PG Care Time/CCT Total # of Minutes Spent Total Time Spent with Patient: Total time spent is greater than 50% in coordination of care (as documented) at patient's floor/unit and/or counseling patient: Coding Level of Care Code 98294 SUB INP/OBS CARE 3/50MIN Diagnoses JEFFREY (acute kidney injury) N17.9 Chronic kidney disease, stage 4 (severe) N18.4 Anemia D64.9 Fluid overload E87.70 Hypercalcemia E83.52 Hyperkalemia E87.5
--- NOTE | 2022-12-22 16:57 | Billing Data ---
Date of Service December 22, 2022 Coding Level of Care Code 72044 SUB INP/OBS CARE MIN
[2022-12-22] MEDS: PROMETHAZINE HCL 25 MG TAB PO PRN ×2 (17:09→22:57)
[2022-12-23] MEDS: HEPARIN SOD 5,000 UNIT/0.5 ML VIAL SQ SCH ×3 (05:23→19:47)
--- NOTE | 2022-12-23 08:23 | Hospitalist Progress Note ---
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 Acute on Chronic HFmrEF, resolving -Exacerbation appears to from patient stopping all Lasix since 12/10/22 (see below). Also considered ischemic cardiomyopathy (see below). -Prior to 11/04/22 admission, was prescribed Lasix 20mg PO BID. This was changed to Lasix 40mg PO BID upon 11/08/22 hosp discharge. At 11/16/22 nephro visit, the Lasix was decreased to 40mg daily for progressively worsening renal function, w/ an additional 40mg dose prn for significant wt gain. -12/09/22 PCP phone message: Patient had been taking 40mg daily w/ 20mg prn for leg swelling. PCP instructed patient to hold the prn dose until next nephro visit. Patient misunderstood this to have meant stopping all Lasix. - Strict Is/Os originally lost 3L since admission, however balance now positive - s/p 1 dose of metolazone 2.5mg PO on 12/16/22. Was on ~BID dosing of IV Lasix 40mg (3 doses on 12/16/22) from 12/14/22-12/17/22). Metolazone discontinued. Lasix given 12/19 40mg IV bid. 12/20 nephro increased of lasix to 40mg IV TID, creat has increased to 5.14 - 12/21/22 tried albumin 25% q8r 3 doses with lasix given afterwards to assist in fluid removal - Difficult volume status. No dyspnea and is saturating 95 on room air. Upon discharge, will need to decide on outpatient regimen. JEFFREY on CKD4 - [place] [facility] [place]. Baseline Cr 3-4 with EGFR of 10 cc/min. Uptrending to Cr of 5.03 this admission in setting of diuresis. - Hx of short-term dialysis in 2018 postoperatively. - Sodium bicarb 650 mg daily (lowered from twice daily to reduce sodium load). - Avoid nephrotoxic agents. Renally dose medications. Reduced tramadol dose. - Continue home allopurinol, sevelamer - 12/23/22 decision made to move forward with dialysis, Dr. Delaney to see her tomorrow, first HD tomorrow Anemia - Hb baseline is low 7-8s. - IV Venofer and Epogen per nephro. -12/22/22 hbg decreased to 6.8 patient symptomatic with fatigue weakness, obtained blood consent, transfused 2U blood Venous Stasis -significant fluid retention in b/l lower extremities and lower abd, difficult to remove with lasix -patient on KODY wraps, compression stocking, SCDs -patient fitted with new orthotics to assist in walking -PT/OT ordered, patient educated to participate in PT Hypocalcemia iCa 0.91. S/p Calcium gluconate 1gm with minimal improvement to 0.92. Suspect due to CKD. - will give another 1gm calcium and re-check iCa in AM - Hypercalcemic at 10/2022 admission. 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 Per nephro, will decrease to prednisone 2.5mg. Elevated high sensitivity troponin, peaked at 332.9 - No chest pain this admission. Likely 2/2 demand ischemia. - Elevated hstrop to 32,648.5 during 11/05/22 last admission. Cardiology consult had recommended cardiac cath as unclear if type I vs type II DC at the time. Patient had refused. 11/04/22 ecg w/ new LBBB. - No LBBB on 12/14/22 ecg. - Will repeat echo given the above. Last echo on 11/05/21. Breast cancer -Follows [facility] [place]. Receives monthly fulvestrant. Next dose due 12/21/22 -Paperwork to allow medication to be received and administered completed on 12/22, insurance approved, dosage to be administered on 12/24 Hyperphosphatemia - Peaked at 6.2, since downtrended to 4.8 - Has been refusing some doses of sevelamer due to nausea Right lower extremity wound/bilateral lower extremity edema - Wound dressings. Encourage ambulation. GERD - Continue Protonix 40mg PO. Hypertension - Continue home metoprolol succinate 25 mg PO. Type 2 diabetes mellitus - SSI and Lantus BID while inpatient. Home regimen is 22u BID. Patient's caregiver to administer personally. Form signed. - Patient on Lantus 22 units twice daily at home. - Patient's caregiver insists on administering insulin to patient herself. Signed form allowing her to administer. Nursing usually in the room to watch her give insulin. diet: DM2, dialysis renal ppx: sq heparin 7500u q8h, patient has been refusing code: full dispo: med tele (2) Elevated troponin: (3) Hyperkalemia: (4) Hypercalcemia: (5) Chronic kidney disease, stage 4 (severe): (6) Breast cancer: (7) MCKENZIE (nonalcoholic steatohepatitis): (8) GERD (gastroesophageal reflux disease): (9) HTN (hypertension): (10) JEFFREY (acute kidney injury): Admission and Anticipated Discharge Date Admission Date: December 13, 2022 Supervising Physician Co-Signing Physician Notes I personally examined the patient and verified all barertt points of history and exam, discussed case, and agree with decision making with Dr Reyes. feeling about the same. moving towards HD. Vitals noted, in general she is awake and alert pleasant no distress. HEENT normocephalic atraumatic mucous membranes moist. Breathing unlabored no accessory muscle use good effort. BMP, phos noted Fluid overloadsystolic CHF, CKD, venous stasisfluid retention in spite of escalated diuretics, and rising creatinine. Either approaching a cardiorenal type of a point, or possibly remaining fluid is venous compartment sequestered, probably both. Continue compression (switched from compression to SCD compression due to skin breakdown), mobilization as best as possible. unfortunately has progressed to where she needs HD - moving in that direction. DVT prophylaxis heparin subcu (anemia is likely from hypoproliferation not blood loss) Subjective Patient seen at bedside, states she feels better compared to yesterday feels she has more fluid off her abd and right leg compared to before. Patient and aware that her chemo is in the hospital and paperwork for administration of the drug has been completed. Per nephro patient will proceded to dialysis at this time. Physical Exam Constitutional: well developed, well nourished, + morbidly obese, + frail appearing, cooperative and comfortable Eyes: PERRL, conjunctivae normal, anicteric sclerae ENMT: external ear and nose normal, oropharynx normal Neck: + thick neck Respiratory: normal respiratory effort, lungs clear to auscultation Cardiovascular: Rate/Rhythm: regular rate and regular rhythm Extremities: + edema (+2 pitting up to thigh left leg) Gastrointestinal (Abdomen): Inspection/Auscultation: + abdomen distended (pitting with palpation) Percussion/Palpation: abdomen soft; abdomen nontender Skin: erythema noted on left lower leg from venous stasis, bandages on right lower leg Results & Data Results & Data Vital Signs (Past 12 Hours) Vital Signs Temp Pulse Pulse Resp BP BP Pulse Ox 12/23/22 08:03 36.4 C L 100 H 18 131/71 96 12/23/22 07:28 66 12/23/22 03:50 36.6 C 72 20 147/72 H 93 12/22/22 22:46 36.8 C 60 18 136/70 94 12/22/22 21:23 O2 Del Method 12/23/22 08:03 Room Air 12/23/22 07:28 12/23/22 03:50 Room Air 12/22/22 22:46 Room Air 12/22/22 21:23 Room Air Resident Activity Tracking Resident Involvement: Resident Care Provided Care Provided: Adult [facility] Medicine (6) Breast cancer Breast location: unspecified site of breast Estrogen receptor status: unspecified Laterality: left Patient sex: female Qualified Code(s): C50.912 - Malignant neoplasm of unspecified site of left female breast
[2022-12-23] MEDS: INSULIN ASPART PER UNIT CHARGE SC SCH ×4 (09:22→20:49)
[2022-12-23] MEDS: SEVELAMER HCL 800 MG TABLET PO SCH ×3 (09:23→18:09)
[2022-12-23] MEDS: FUROSEMIDE 40 MG/4 ML VIAL IV SCH ×3 (09:29→20:54)
[2022-12-23] MEDS: VENLAFAXINE HCL XR 75 MG CAPXR PO SCH (09:29)
[2022-12-23] MEDS: allopurinoL 100 MG TAB PO SCH (09:29)
[2022-12-23] MEDS: SODIUM BICARBONATE 650 MG TAB PO SCH (09:30)
[2022-12-23] MEDS: METOPROLOL SUCC 25MG EXT REL TAB PO SCH (09:30)
[2022-12-23] MEDS: PANTOprazole 40 MG TAB PO SCH (09:30)
[2022-12-23] MEDS ORDERED: CALCIUM CARBONATE 500 MG CHEWABLE TAB PO STA (09:36)
[2022-12-23] MEDS: PROMETHAZINE HCL 25 MG TAB PO PRN (11:43)
[2022-12-23] MEDS: LANTUS PER UNIT CHARGE SQ SCH ×2 (13:29→23:11)
--- NOTE | 2022-12-23 14:51 | Nephrology Progress Note ---
Date of Service December 23, 2022 Assessment & Plan (1) JEFFREY (acute kidney injury): (2) Chronic kidney disease, stage 4 (severe): (3) Anemia: (4) Fluid overload: (5) Hypercalcemia: (6) Hyperkalemia: Plan 72 y o f with Stage IV CKD, b/l cr lately around 4.0, Admitted with acute kidney injury, hyperkalemia and volume overload. hemoglobin dropped to 6.8, received Epogen on 12/18/2022, has adequate iron store, had 2 PRBC on 12/22/2022. Renal function continues to worsen despite staying overall net positive, electrolyte acceptable. hemoglobin low. Overall feeling poorly, fatigued and low appetite could be some component of uremia although slightly better compared to yesterday after 2 PRBC. -- Continue to monitor intake and output closely, Lasix 40 mg IV 3 times daily. However she has all stigmata of advanced renal failure/ESKD and suboptimal response to diuretics. Had detailed discussion with Pauline and Adele, both are agreeable with starting on HD as we have not been able to make any progress and renal function continues to worsen. --consult yasmeen Rich for tDC on 12/24/22 around 11 am, will do first HD tomorrow with low blood flow, 1 L UF --Epogen [id number] x 1 dose given on 12/18/2022, blood transfusion today . --consult case management for out pt dialysis set up at [facility] -- she will get Faslodex on 12/24/22 Will follow. Admission and Anticipated Discharge Date Admission Date: December 13, 2022 Subjective Pauline was seen and evaluated this am. She feels slightly better this morning after 2 PRBC yesterday, denies shortness of breath, chest pressure but continues to feel bloated. urine output slightly improved but net positive despite Lasix 40 TID. No improvement in kidney function creatinine staying around 50-5.2, e lectrolyte staying relatively stable. Blood pressure well controlled. Review of Systems Review of Systems: Detailed review of system was otherwise unremarkable except mentioned above. Physical Exam Constitutional: WD/WN, vitals as above + ill appearing; no acute distress Respiratory: no respiratory distress Auscultation: + diminished lung sounds Cardiovascular: Rate/Rhythm: regular rate and regular rhythm Extremities: + edema Skin: + turgor decreased and + erythema (left le); no rashes Neurologic: no focal motor deficits Psychiatric: Orientation: alert and oriented x 3 Affect: euthymic affect Results & Data Vital Signs (Past 12 Hours) Vital Signs Temp Pulse Pulse Resp BP BP Pulse Ox 12/23/22 11:57 36.8 C 57 L 18 129/69 96 12/23/22 08:03 36.4 C L 100 H 18 131/71 96 12/23/22 07:28 66 12/23/22 03:50 36.6 C 72 20 147/72 H 93 O2 Del Method 12/23/22 11:57 Room Air 12/23/22 08:03 Room Air 12/23/22 07:28 12/23/22 03:50 Room Air PG Care Time/CCT Total # of Minutes Spent Total Time Spent with Patient: Total time spent is greater than 50% in coordination of care (as documented) at patient's floor/unit and/or counseling patient: Coding Level of Care Code 79310 SUB INP/OBS CARE 3/50MIN Diagnoses JEFFREY (acute kidney injury) N17.9 Chronic kidney disease, stage 4 (severe) N18.4 Anemia D64.9 Fluid overload E87.70 Hypercalcemia E83.52 Hyperkalemia E87.5
[2022-12-23 15:51] LABS: Albumin Level 3.6 gm/dl (3.4-5.0); Calcium 7.1 mg/dl (8.6-10.3); Creatinine Clr Calc Pharmacy 11.4 ml/min; Est GFR (African American) 8.7 ml/min; Est GFR (Non-African American) 7.5 ml/min; Potassium 3.5 mmol/L (3.5-5.1)
--- NOTE | 2022-12-23 17:13 | Billing Data ---
Date of Service December 23, 2022 Coding Level of Care Code 30891 SUB INP/OBS CARE
[2022-12-24] MEDS: HEPARIN SOD 5,000 UNIT/0.5 ML VIAL SQ SCH ×3 (03:52→20:51)
[2022-12-24] MEDS ORDERED: CLINDAMYCIN/D5W 900 MG/50 ML BAG IV SCH (06:00)
[2022-12-24 06:50] LABS: Hematocrit (blood only) 27.9 % (37.0-47.0); Hemoglobin 9.1 g/dl (12.0-16.0); Mean Corpuscular Hemoglobin 33.1 pg (25.0-34.0); Mean Corpuscular Hgb Conc 32.6 g/dL (32.0-36.0); Mean Corpuscular Volume 101.5 fL (80.0-100.0); Mean Platelet Volume 11.1 fL (9.4-12.4); Nucleated RBC # (auto) 0.03 K/uL (0-0.12); Nucleated RBC % (auto) 0.5 %; Platelet Count 140 K/uL (130-400); RDW Standard Deviation 71.6 fL (36.4-46.3); Red Blood Count 2.75 M/uL (4.20-5.40); White Blood Count 6.28 K/ul (4.8-10.8)
[2022-12-24 06:59] LABS: Albumin Level 3.4 gm/dl (3.4-5.0); BUN Creatinine Ratio 20.3 (10-20); Blood Urea Nitrogen 105 mg/dl (6-23); Calcium 6.7 mg/dl (8.6-10.3); Carbon Dioxide 21 mmol/L (21-32); Chloride 101 mmol/L (98-107); Creatinine Clr Calc Pharmacy 11.5 ml/min; Est GFR (African American) 8.8 ml/min; Est GFR (Non-African American) 7.6 ml/min; Glucose 98 mg/dl (70-99(Fasting)); Phosphorus 5.6 mg/dl (2.5-4.9)
--- NOTE | 2022-12-24 07:28 | Hospitalist Progress Note ---
Date of Service December 24, 2022 Assessment & Plan (1) Acute on chronic combined systolic (congestive) and diastolic (congestive) heart failure: Plan: 72yo female with a history of breast cancer (on ibrance; follows with [facility] Leandro) with bony mets, CKD4, DM2, HFmrEF, HTN, HLD, MCKENZIE, and GERD who presented with SOB, weight gain, and LE edema, admitted for a CHF exacerbation. Of note, patient was admitted from 11/04/22 - 11/08/22 for a CHF exacerbation. [id number] HFmrEF Suspected secondary to patient discontinuing lasix on 12/10/22 (patient had been on lasix 40mg qd and 20mg prn - patient had called her PCP who recommended she hold her prn dose until her next nephrology visit; however, patient misunderstood this and stopped taking lasix altogether) Echo (12/20): LV function normal, no wall motion abnormalities, borderline con centric LVH, EF 50-55% Nephrology following; has been adjusting lasix dosing during this hospitalization, with occasional metolazone First dialysis treatment 12/24 with second round planned for 12/25 JEFFREY on CKD4 Prior baseline creatinine 3-4 with eGFR 10mL/min; has ranged from 4 to 5.2 during this hospitalization Patient has a history of short-term dialysis in 2018 in a postoperative setting Continue sodium bicarbonate 650mg daily (lowered from twice daily to once daily to reduce sodium load) Patient is scheduled to have a dialysis catheter placed 12/[address] Delaney Continue home regimen Anemia Baseline hemoglobin 7-8, presumed secondary to worsening renal function Continue venofer and epogen per nephrology 12/22: Hgb decreased to 6.8 associated with fatigue and weakness; patient was then transfused 2u pRBC Continue to monitor Elevated troponin On admission, hsTroponin elevated to 47.4, which peaked at 322.9 on 12/22; patient was without CP Cardiology was consulted and recommended catheterization to elucidate type 1 vs type 2 HI; patient refused Echo repeated on 12/20 with findings noted above Patient continues to be without CP; continue to monitor Venous stasis Continue KODY wraps, compression stockings, SCDs Fitted with new orthotics this visit to assist with gait stability Continue PT/OT Hyperphosphatemia Peaked at 6.2, has been downtrending since Patient has refused some doses of sevelamer due to nausea Continue to monitor Metastatic breast cancer Follows with [facility] Rober, receives fulvestrant monthly (500mg per month) Chemotherapy consent form signed, insurance approved, plan to administer this dose on 12/24 DM2 HbA1c 7.3% (old value - from February 2022), repeat ordered While hospitalized, lantus 10u qd and SSI Continue BSG checks, hypoglycemic protocol HTN: continue home metoprolol GERD: continue home PPI FEN: DM2 / dialysis renal diet Code status: full code DVT ppx: heparin PT/OT: ordered Case management: following Dispo: med/telemetry - discharge is pending dialysis initiation and clinical improvement (2) Elevated troponin: (3) Hyperkalemia: (4) Hypercalcemia: (5) Chronic kidney disease, stage 4 (severe): (6) Breast cancer: (7) MCKENZIE (nonalcoholic steatohepatitis): (8) GERD (gastroesophageal reflux disease): (9) HTN (hypertension): (10) JEFFREY (acute kidney injury): Admission and Anticipated Discharge Date Admission Date: December 13, 2022 Subjective Patient seen and evaluated at bedside this morning. Patient feels well and has no complaints. Patient is anxious ahead of having her dialysis catheter placed today due to a prior similar experience being traumatic. Dialysis and catheter placement were discussed at length and patient's anxiety improved. Patient has no other concerns at this time. Patient denies CP, SOB, nausea, vomiting, lightheadedness, dizziness, and diarrhea. Review of Systems Review of Systems: See HPI Physical Exam 2 Physical Exam: Constitutional: well-appearing, no acute distress CV: regular rhythm, no murmur appreciated, extremities well-perfused, 1+ pitting edema appreciated bilaterally Resp: CTABL, no wheezes/rales/rhonchi appreciated, no increased work of breathing Neuro: alert, oriented, no focal neurologic deficit appreciated Results & Data Results & Data Vital Signs (Past 12 Hours) Vital Signs Temp Pulse Pulse Resp BP Pulse Ox O2 Del Method 12/24/22 02:45 36.5 C 62 19 167/65 H 95 Room Air 12/23/22 22:03 65 12/23/22 21:30 Room Air 12/23/22 22:55 36.6 C 62 18 119/72 96 Room Air Resident Activity Tracking Resident Involvement: Resident Care Provided Care Provided: Adult Hospital Medicine (6) Breast cancer Breast location: unspecified site of breast Estrogen receptor status: unspecified Laterality: left Patient sex: female Qualified Code(s): C50.912 - Malignant neoplasm of unspecified site of left female breast
[2022-12-24 07:35] LABS: Potassium 3.3 mmol/L (3.5-5.1)
[2022-12-24] MEDS: SEVELAMER HCL 800 MG TABLET PO SCH ×3 (08:35→17:13)
[2022-12-24] MEDS: INSULIN ASPART PER UNIT CHARGE SC SCH ×4 (08:35→20:55)
--- NOTE | 2022-12-24 09:56 | Consultation ---
Date of Consultation December 24, 2022 Assessment & Plan (1) JEFFREY (acute kidney injury): Pt with acute on chronic kidney disease, without improvement in renal fxn despite tx. Nephrology requested TDC for HD initiation. Procedure, risks, benefits, and alternatives discussed with pt by myself at Dr Delaney's request. Pt expresses understanding and agreement. Daughter present as well. Procedure will occur this AM. Patient was seen, examined, and chart reviewed. Agree with exam and treatment plan of the Vascular PA. History of Present Illness Reason for Consultation: JEFFREY Attending Physician: Tio Hameed DO History of Present Illness 72 yo f with multiple medical problems, including CHF, CKD, breast cam HTN, GERD, MCKENZIE, DMII, second degree heart block, dyslipidemia, stasis dermatitis, admitted and found to have worsening renal fxn that is not improving. Pt states she was on HD for about 1 week a few years ago, so remembers having a catheter for that. Admits chronic back pain, bloating. Denies GRAF, fever, chest pain, SOB, abd pain, N/V, rest pain, claudication, other complaints. Allergies Allergy/AdvReac Type Severity Reaction Status Date / Time amoxicillin Allergy Severe LIPS Verified 12/13/22 16:38 SWELLED, "RED ALL OVER" doxycycline Allergy Severe LIPS Verified 12/13/22 16:38 SWELLED, "RED ALL OVER". cephalexin [From Keflex] Allergy Intermediate skin Verified 12/13/22 16:38 starts to peel off sulfamethoxazole Allergy Unknown Unknown Verified 12/13/22 16:38 [From Bactrim] trimethoprim [From Bactrim] Allergy Unknown Unknown Verified 12/13/22 16:38 atorvastatin AdvReac Intermediate Myalgia Verified 12/13/22 16:38 Home Medications Medication Instructions Recorded Confirmed Type tramadol 50 mg tablet 50 mg PO Q6 PRN Pain 05/19/22 12/13/22 History omega-3 fatty acids 1,000 mg 2,000 mg PO BID #360 caps 07/19/22 12/13/22 Rx capsule pen needle, diabetic 32 gauge x ##600 07/23/22 12/13/22 Rx " (UltiCare Pen Needle) clotrimazole-betamethasone 1 1 applic topical BID PRN Skin 11/02/22 12/13/22 History %-0.05 % topical cream Irritation epoetin kacey 40,000 unit/mL 40,000 unit subcut DIRECTED 11/02/22 12/13/22 History injection solution (Procrit) insulin glargine 100 unit/mL (3 22 unit subcut BID 11/02/22 12/13/22 History mL) subcutaneous pen (Lantus Solostar U-100 Insulin) allopurinol 100 mg tablet 50 mg PO DAILY #45 tabs 11/12/22 12/13/22 Rx furosemide 40 mg tablet 40 mg PO BID #180 tabs 11/12/22 12/13/22 Rx metoprolol succinate 25 mg 25 mg PO DAILY #90 tabs 11/12/22 12/13/22 Rx tablet,extended release 24 hr insulin aspart U-100 100 unit/mL 1 sliding scale dose subcut 11/15/22 12/13/22 History (3 mL) subcutaneous pen (Novolog DIRECTED FlexPen U-100 Insulin aspart) prednisone 10 mg tablet 10 mg PO DAILY 30 days #30 tabs 11/16/22 12/13/22 Rx sevelamer HCl 800 mg tablet 800 mg PO DAILY #90 tabs 11/16/22 12/13/22 Rx furosemide 20 mg tablet 20 mg PO QPM PRN weight gain #90 12/01/22 12/13/22 Rx tabs venlafaxine 75 mg capsule,extended 75 mg PO DAILY #90 caps 12/01/22 12/13/22 Rx release 24 hr sodium bicarbonate 650 mg tablet 650 mg PO BID stomach upset #60 12/10/22 12/13/22 Rx tabs sodium polystyrene sulfonate 15 60 ml PO 2XWK 12/13/22 12/13/22 History gram-sorbitol 20 gram/60 mL oral susp promethazine 25 mg tablet 25 mg PO Q6H PRN nausea #30 tabs 12/19/22 Rx Patient History Medical History (HFpEF) heart failure with preserved ejection fraction JEFFREY (acute kidney injury) post-operative 2017 - short term dialysis Anemia Breast cancer diagnosed 2020 Candidal intertrigo Chronic kidney disease, stage 4 (severe) Chronic kidney disease, stage III (moderate) Chronic stasis dermatitis Crystal arthropathy Dyslipidemia GERD (gastroesophageal reflux disease) HTN (hypertension) Hyperuricemia Iron deficiency anemia Penny type 1 second degree AV block MCKENZIE (nonalcoholic steatohepatitis) Seborrheic dermatitis Statin myopathy Type 2 diabetes mellitus Vitamin D deficiency Surgical History History of appendectomy History of tonsillectomy and adenoidectomy Humerus fracture surgical repair Hx of cholecystectomy Family History Father Depression Diabetes Mother Hypertension Kidney stones Gallbladder disease Denies family history of Ovarian cancer Prostate cancer Myocardial infarction Breast cancer Colorectal cancer Social History Smoking Status: Never smoker Second Hand Exposure: No; Hx Alcohol Use: No Hx Substance Use: No Preferred Language: Upper Sorbian Communication Ability: Effective Visual Impairment: Limited Hearing Ability: Normal Water Resources Technical Officer Required: No Beliefs That Will Affect Care: None marital status: Current Living Situation: Spouse 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 Feels Safe at Home: Yes Safety Concerns: Feels Safe At This Time Childhood Exposure to Second-Hand Smoke: No Dental Care, Regularly: Yes Physical Activity Frequency: Does not Exercise Seatbelt Use: never Sunscreen Use: No Assistive Devices: Cane, Mechanical Lift, Scooter/Electric Scooter and Walker Review of Systems Review of Systems: All systems reviewed & are unremarkable except as noted in HPI & below Physical Exam Constitutional: WD/WN, vitals as above + morbidly obese, healthy appearing, cooperative and comfortable; not in distress ENMT: Ears: no hearing impairment Neck: trachea midline Respiratory: normal respiratory effort, lungs clear to auscultation Auscultation: + diminished lung sounds Cardiovascular: Rate/Rhythm: regular rate and regular rhythm Vessels: posterior tibial pulses present, dorsalis pedis pulses present and radial pulses present; + abnormal peripheral pulses Extremities: normal capillary refill and + edema Gastrointestinal (Abdomen): unable to examine, pt refused to lay down in bed Musculoskeletal: no cyanosis or clubbing, extremities motor strength 5/5 Skin: no rashes, warm and dry Neurologic: moves all extremities and awake; no focal motor deficits and not confused Psychiatric: A+Ox3, euthymic affect Results & Data Vital Signs (Past 12 Hours) Vital Signs Temp Pulse Pulse Resp BP Pulse Ox O2 Del Method 12/24/22 09:35 36.7 C 62 20 150/49 H 95 Room Air 12/24/22 07:36 36.4 C L 59 L 18 119/70 94 Room Air 12/24/22 02:45 36.5 C 62 19 167/65 H 95 Room Air 12/23/22 22:03 65 12/23/22 22:55 36.6 C 62 18 119/72 96 Room Air
[2022-12-24] MEDS ORDERED: LIDOCAINE 1% LOCAL 20 ML VIAL ONE (10:00)
--- NOTE | 2022-12-24 10:11 | Pre Anesthesia Assessment ---
Date of Service December 24, 2022 Pre Sedation Assessment Vital Signs Temp Pulse Pulse Resp BP Pulse Ox O2 Del Method 12/24/22 09:35 36.7 C 62 20 150/49 H 95 Room Air 12/24/22 07:36 36.4 C L 59 L 18 119/70 94 Room Air 12/24/22 02:45 36.5 C 62 19 167/65 H 95 Room Air 12/23/22 22:03 65 12/23/22 21:30 Room Air 12/23/22 22:55 36.6 C 62 18 119/72 96 Room Air 12/23/22 18:32 36.3 C L 63 20 130/69 96 Room Air 12/23/22 18:24 68 12/23/22 15:42 36.6 C 69 18 142/74 H 95 Room Air 12/23/22 11:57 36.8 C 57 L 18 129/69 96 Room Air Cardiovascular RRR, no murmur, no edema Respiratory normal respiratory effort, lungs clear to auscultation Pre-Sedation Airway Assessment Smoking Status: Never smoker Hx Sleep Apnea: No Short, Thick Neck: Yes Thyromental Distance: < 3.5 Finger Breadths Oral Cavity: + WNL Mallampati Class: III ASA: ASA4 NPO Status Date of Last Intake of Fluids: 12/23/22 Time of Last Intake of Fluids: 22:30 Date of Last Intake of Solid Food: 12/23/22 Time of Last Intake of Solid Foods: 22:30 Procedure Planning Contraindications for Sedation: none Current Medications Reviewed: Yes Notes The planned sedation has been discussed with the patient. Informed Consent was obtained. I have identified the patient, determined the appropriateness of sedation and have assessed the patient immediately prior to the procedure. All medicine(s) and interventions are by my order.
[2022-12-24] MEDS ORDERED: fentaNYL citrate PF 100 MCG/2 ML VIAL ONE (10:22)
[2022-12-24] MEDS ORDERED: MIDAZOLAM HCL 1 MG/ML 2ML VIAL ONE (10:22)
[2022-12-24] MEDS ORDERED: HEPARIN SOD (PORCINE) 5,000 UNITS/ML VIAL ONE (10:23)
--- NOTE | 2022-12-24 10:48 | Operative Report ---
Post Operative Report Pre & Post Diagnosis Operation Date: 12/24/22 10:00 Pre-Op Diagnosis: Acute Kidney Injury Post-Op Diagnosis: Acute Kidney Injury I identified the patient and participated in the time-out.: Yes Procedure Operation Date: 12/24/22 10:00 Actual Procedures p Insertion of Perm Catheter Right Jugular Approach, Ultrasound Localization of Right Jugular Vein, Fluoroscopy for Positioning, Moderate Sedation [id number] 1047(Right) - Christiano Delaney MD Surgeon Christiano Delaney MD Translational Specialist none Estimated Blood Loss 5 Findings Consistent with Post-Op Diagnosis Specimens none Anesthesia Type RN Sedation Complications none Disposition Accompanied Patient To Recovery: No Disposition: Recovery Room Indications This is a 72-year-old female with acute kidney injury in need of dialysis. PermCath access was recommended. I have discussed the risks options and benefits of the procedure with the patient. The patient understands the risks options and benefits and agrees to the procedure. Description of Procedure Patient was taken to the angio suite and placed in the supine position. The right side of the neck and chest wall were prepped and draped in a sterile manner. The patient was identified and a timeout performed. Local anesthesia was then administered to the appropriate areas of the neck and chest wall. Ultrasound was then used to locate the right internal jugular vein. The vein compressed easily, had no filing defects, and was patent. The vein was then punctured under direct ultrasound imaging. A guidewire was then passed centrally under fluoroscopic imaging. A stab wound was then made in the anterior chest wall and a 19 cm permcath was passed from the stab wound on the chest wall to the puncture site on the neck. The puncture site was then dilated till the 14Fr peel away sheath was inserted. The permcath was then inserted through the sheath to a central position in the distal superior vena cava. The peel away sheath was then removed. The catheter was then sutured in place using nylon sutures. The puncture was then closed using a 4-0 Vicryl subcuticular suture. Dermabond was used for a dressing on the puncture site. Both ports aspirated and flushed easily and were then packed with heparin. A sterile dressing was applied to the catheter. The patient left the operation room in satisfactory condition and tolerated the procedure well. All needle and sponge counts were correct at the end of the procedure. I attest to the content of the Intraoperative Record and any orders documented therein. Any exceptions are noted below.
--- NOTE | 2022-12-24 11:22 | Nephrology Progress Note ---
Date of Service December 24, 2022 Assessment & Plan (1) JEFFREY (acute kidney injury): (2) Chronic kidney disease, stage 4 (severe): (3) Anemia: (4) Fluid overload: (5) Hypercalcemia: (6) Hyperkalemia: Plan 72 y o f with Stage IV CKD, b/l cr lately around 4.0, Admitted with acute kidney injury, hyperkalemia and volume overload. hemoglobin dropped to 6.8, received Epogen on 12/18/2022, has adequate iron store, had 2 PRBC on 12/22/2022. Had monthly Faslodex dose on 12/24/22 for metastatic breast cancer. There was no improvement in renal function and volume status remain she remained volume overloaded with abdominal distension, lower extremity edema and eventually decided to start on dialysis, 1st dialysis treatment on 12/24/22 after getting TDC Overall clinically stable, blood pressure well controlled. Due for tunneled dialysis catheter this morning. -- 1st dialysis treatment for 2 hours and if tolerated will increase to 3 hours tomorrow. Plan at this time to do twice a week dialysis once it can be set up at [facility]. -- would continue Lasix 40 mg IV 3 times daily. --Epogen 39012 x 1 dose today --waiting on out pt dialysis set up at [facility] Will follow. Admission and Anticipated Discharge Date Admission Date: December 13, 2022 Subjective Pauline was seen and evaluated this am. She she denies any specific symptoms but overall anxious with the prospect of getting a tunnel catheter and starting on dialysis but she is acceptable. Hb stable, s/p r 2 PRBC on 12/22/22, denies shortness of breath, chest pressure but continues to feel bloated. urine output slightly improved but net positive despite Lasix 40 TID. No improvement in kidney function creatinine staying around 50-5.2, electrolyte staying relatively stable. Blood pressure well controlled. Review of Systems Review of Systems: Detailed review of system was otherwise unremarkable except mentioned above. Physical Exam Constitutional: WD/WN, vitals as above + ill appearing; no acute distress Respiratory: no respiratory distress Auscultation: + diminished lung sounds Cardiovascular: Rate/Rhythm: regular rate and regular rhythm Extremities: + edema Skin: + turgor decreased and + erythema (left le); no rashes Neurologic: no focal motor deficits Psychiatric: Orientation: alert and oriented x 3 Affect: euthymic affect Results & Data Vital Signs (Past 12 Hours) Vital Signs Temp Pulse Pulse Resp BP Pulse Ox O2 Del Method 12/24/22 10:47 62 16 125/64 96 Room Air 12/24/22 10:42 58 L 16 115/53 L 97 Oxymask 12/24/22 10:38 57 L 16 133/73 97 Oxymask 12/24/22 10:33 61 16 136/62 95 Oxymask 12/24/22 10:28 59 L 16 129/55 L 96 Oxymask 12/24/22 10:27 62 16 150/71 H 96 Oxymask 12/24/22 09:35 36.7 C 62 20 150/49 H 95 Room Air 12/24/22 07:36 36.4 C L 59 L 18 119/70 94 Room Air 12/24/22 02:45 36.5 C 62 19 167/65 H 95 Room Air O2 Flow Rate 12/24/22 10:47 0 12/24/22 10:42 4 12/24/22 10:38 4 12/24/22 10:33 4 12/24/22 10:28 4 12/24/22 10:27 4 12/24/22 09:35 12/24/22 07:36 12/24/22 02:45 PG Care Time/CCT Total # of Minutes Spent Total Time Spent with Patient: Total time spent is greater than 50% in coordination of care (as documented) at patient's floor/unit and/or counseling patient: Coding Level of Care Code 09774 SUB INP/OBS CARE 3/50MIN Diagnoses JEFFREY (acute kidney injury) N17.9 Chronic kidney disease, stage 4 (severe) N18.4 Anemia D64.9 Fluid overload E87.70 Hypercalcemia E83.52 Hyperkalemia E87.5
[2022-12-24 11:51] LABS: HBSAG NON-REACTIVE (NON-REACTIVE); Hepatitis B Core Antibody IgM NON-REACTIVE (NON-REACTIVE); Hepatitis B Surface Ab, Quant <5 mIU/mL (> OR = 10)
[2022-12-24] MEDS: FUROSEMIDE 40 MG/4 ML VIAL IV SCH ×3 (12:02→21:04)
[2022-12-24] MEDS ORDERED: EPOETIN ALFA 40,000 UNITS/ML VIAL IV ONE (14:00)
[2022-12-24] MEDS ORDERED: EPOETIN ALFA 20,000 UNITS/ML VIAL IV ONE (14:00)
[2022-12-24] MEDS: allopurinoL 100 MG TAB PO SCH (17:07)
[2022-12-24] MEDS: METOPROLOL SUCC 25MG EXT REL TAB PO SCH (17:09)
[2022-12-24] MEDS: SODIUM BICARBONATE 650 MG TAB PO SCH (17:09)
[2022-12-24] MEDS: PANTOprazole 40 MG TAB PO SCH (17:09)
[2022-12-24] MEDS: VENLAFAXINE HCL XR 75 MG CAPXR PO SCH (17:10)
[2022-12-24] MEDS: PROMETHAZINE HCL 25 MG TAB PO PRN (17:13)
--- NOTE | 2022-12-24 17:35 | Billing Data ---
Date of Service December 24, 2022 Coding Level of Care Code 99885 SUB INP/OBS CARE
[2022-12-24] MEDS: LANTUS PER UNIT CHARGE SQ SCH ×2 (18:47→23:47)
[2022-12-24] MEDS: FULVESTRANT 250 MG/5 ML SYRINGE IM SCH ×2 (18:50→18:52)
[2022-12-25] MEDS: HEPARIN SOD 5,000 UNIT/0.5 ML VIAL SQ SCH ×3 (04:25→21:20)
[2022-12-25 07:14] LABS: Hematocrit (blood only) 29.3 % (37.0-47.0); Hemoglobin 9.5 g/dl (12.0-16.0); Mean Corpuscular Hemoglobin 32.9 pg (25.0-34.0); Mean Corpuscular Hgb Conc 32.4 g/dL (32.0-36.0); Mean Corpuscular Volume 101.4 fL (80.0-100.0); Mean Platelet Volume 10.9 fL (9.4-12.4); Nucleated RBC # (auto) 0.05 K/uL (0-0.12); Nucleated RBC % (auto) 0.9 %; Platelet Count 141 K/uL (130-400); RDW Coefficient of Variation 20.7 % (11.5-14.5); RDW Standard Deviation 72.4 fL (36.4-46.3); Red Blood Count 2.89 M/uL (4.20-5.40)
[2022-12-25 07:36] LABS: Albumin Level 3.4 gm/dl (3.4-5.0); BUN Creatinine Ratio 17.4 (10-20); Calcium 7.1 mg/dl (8.6-10.3); Creatinine Clr Calc Pharmacy 13.8 ml/min; Est GFR (Non-African American) 9.5 ml/min; Phosphorus 4.1 mg/dl (2.5-4.9); Potassium 3.6 mmol/L (3.5-5.1)
--- NOTE | 2022-12-25 07:44 | Hospitalist Progress Note ---
Date of Service December 25, 2022 Assessment & Plan (1) Acute on chronic combined systolic (congestive) and diastolic (congestive) heart failure: Plan: 72yo female with a history of breast cancer (on ibrance; follows with [facility]) with bony mets, CKD4, DM2, HFmrEF, HTN, HLD, MCKENZIE, and GERD who presented with SOB, weight gain, and LE edema, admitted for a CHF exacerbation. Of note, patient was admitted from 11/04/22 - 11/08/22 for a CHF exacerbation. [id number] HFmrEF Suspected secondary to patient discontinuing lasix on 12/10/22 (patient had been on lasix 40mg qd and 20mg prn - patient had called her PCP who recommended she hold her prn dose until her next nephrology visit; however, patient misunderstood this and stopped taking lasix altogether) Echo (12/20): LV function normal, no wall motion abnormalities, borderline conc entric LVH, EF 50-55% Nephrology following; has been adjusting lasix dosing during this hospitalization, with occasional metolazone Second round of HD planned for Tuesday or Tuesday pending outpatient HD arrangements ESRD Prior baseline creatinine 3-4 with eGFR 10mL/min; has ranged from 4 to 5.2 during this hospitalization Patient has a history of short-term dialysis in 2018 in a postoperative setting Continue sodium bicarbonate 650mg daily (lowered from twice daily to once daily to reduce sodium load) 12/24: had catheter placed by Dr. Delaney and then had first dialysis; will defer to nephrology regarding timing of next dialysis Anemia Baseline hemoglobin 7-8, presumed secondary to worsening renal function Continue venofer and epogen per nephrology 12/22: Hgb decreased to 6.8 associated with fatigue and weakness; patient was then transfused 2u pRBC Continue to monitor Elevated troponin On admission, hsTroponin elevated to 47.4, which peaked at 322.9 on 12/22; patient was without CP Cardiology was consulted and recommended catheterization to elucidate type 1 vs type 2 SD; patient refused Echo repeated on 12/20 with findings noted above Patient continues to be without CP; continue to monitor Venous stasis Continue KODY wraps, compression stockings, SCDs Fitted with new orthotics this visit to assist with gait stability Continue PT/OT Hyperphosphatemia Peaked at 6.2, has been downtrending since Patient has refused some doses of sevelamer due to nausea Continue to monitor Metastatic breast cancer Follows with [facility], receives fulvestrant monthly (500mg per month) Chemotherapy consent form signed, insurance approved, plan to administer this dose on 12/24 DM2 HbA1c 7.3% (old value - from February 2022), repeat ordered While hospitalized, lantus 10u qd and SSI Continue BSG checks, hypoglycemic protocol HTN: continue home metoprolol GERD: continue home PPI FEN: DM2 / dialysis renal diet Code status: full code DVT ppx: heparin PT/OT: ordered Case management: following Dispo: med/telemetry - discharge is pending dialysis initiation and clinical improvement (2) Elevated troponin: (3) Hyperkalemia: (4) Hypercalcemia: (5) Breast cancer: (6) MCKENZIE (nonalcoholic steatohepatitis): (7) GERD (gastroesophageal reflux disease): (8) HTN (hypertension): (9) ESRD (end stage renal disease): Admission and Anticipated Discharge Date Admission Date: December 13, 2022 Supervising Physician Co-Signing Physician Notes I personally examined the patient and verified all barrett points of history and exam, discussed case, and agree with decision making with Dr Crisostomo Feels okay. Seen after dialysis. No new complaints. Vitals noted, in general she is awake and alert pleasant no distress. HEENT normocephalic atraumatic mucous membranes moist. Breathing unlabored no accessory muscle use good effort. Fluid overloadsystolic CHF, CKD, venous stasisfluid retention in spite of escalated diuretics, and rising creatinine. Either approaching a cardiorenal type of a point, or possibly remaining fluid is venous compartment sequestered, probably both. Continue compression (switched from compression to SCD compression due to skin breakdown), mobilization as best as possible. unfortunately has progressed to where she needs HD -this has been started and she is tolerating well. Outpatient dialysis being set up. DVT prophylaxis heparin subcu (anemia is likely from hypoproliferation not blood loss) Subjective Patient seen and evaluated at bedside this morning. Patient feels well this morning but reports dialysis yesterday "knocked me out" with significant fatigue. The fatigue has substantially improved overnight. Patient denies other symptoms at this time including CP, SOB, abdominal pain, nausea, vomiting, lightheadedness, dizziness, and diarrhea. Review of Systems Review of Systems: See HPI Physical Exam Physical Exam: Constitutional: well-appearing, no acute distress CV: regular rhythm, no murmur appreciated, 1+ edema appreciated bilaterally Resp: CTABL, no wheezes/rales/rhonchi appreciated,, breathing nonlabored Neuro: alert, oriented, no focal neurologic deficit appreciated Results & Data Results & Data Vital Signs (Past 12 Hours) Vital Signs Temp Pulse Pulse Pulse Resp BP Pulse Ox 12/25/22 07:38 36.7 C 87 18 119/68 93 12/25/22 02:28 36.9 C 75 18 122/87 93 12/24/22 23:20 36.7 C 77 18 128/61 94 12/24/22 22:18 69 12/24/22 21:00 O2 Del Method 12/25/22 07:38 Room Air 12/25/22 02:28 Room Air 12/24/22 23:20 Room Air 12/24/22 22:18 12/24/22 21:00 Room Air Resident Activity Tracking Resident Involvement: Resident Care Provided Care Provided: Adult Hospital Medicine (5) Breast cancer Breast location: unspecified site of breast Estrogen receptor status: unspecified Laterality: left Patient sex: female Qualified Code(s): C50.912 - Malignant neoplasm of unspecified site of left female breast
[2022-12-25] MEDS: SEVELAMER HCL 800 MG TABLET PO SCH ×3 (08:16→16:53)
[2022-12-25] MEDS: INSULIN ASPART PER UNIT CHARGE SC SCH ×4 (10:28→21:19)
[2022-12-25] MEDS: SODIUM BICARBONATE 650 MG TAB PO SCH (12:03)
[2022-12-25] MEDS: FUROSEMIDE 40 MG/4 ML VIAL IV SCH (12:31)
[2022-12-25] MEDS: PANTOprazole 40 MG TAB PO SCH (12:31)
[2022-12-25] MEDS: VENLAFAXINE HCL XR 75 MG CAPXR PO SCH (12:31)
[2022-12-25] MEDS: METOPROLOL SUCC 25MG EXT REL TAB PO SCH (12:58)
[2022-12-25] MEDS: allopurinoL 100 MG TAB PO SCH (12:58)
--- NOTE | 2022-12-25 13:29 | Nephrology Progress Note ---
Date of Service December 25, 2022 Assessment & Plan (1) CKD (chronic kidney disease) stage V requiring chronic dialysis: Plan: Pauline was admitted with progressive advanced chronic kidney disease complicated by hyperkalemia and volume overload. TDC was placed by Dr. Delaney 12/24. Pauline received her first dialysis treatment 12/24. Orders for HD today were entered into the EHR and reviewed with the labor relations officer. Pauline is tolerating treatment well. TDC functioning well. Referral has been made to [facility] for outpatient HD. Plan is for Pauline to dialyze twice weekly under the care of Dr. Varner. Renal diet -- low sodium. Repeat serum potassium tomorrow AM. Renvela QAC. Oral NaHCO3 stopped this AM. (2) Anemia: Plan: Admitted with notable acute on chronic anenmia. Epogen 74583 units provided 12/24. 2 PRBC on 12/22/2022. (3) Fluid overload: Plan: Combination of acute on chronic CHF and advanced CKD. Improving with diuretics and HD. Continue furosemide to encourage urine output. Orders for UF with HD today. (4) Acute on chronic combined systolic (congestive) and diastolic (congestive) heart failure: Plan: Continue furosemide to encourage urine output. No KODY/ARB due to history of hyperkalemia. May revisit RAAS blockade once stable on HD. Document I/O's and daily weight. Next HD planned for Tuesday vs. Tuesday. Admission and Anticipated Discharge Date Admission Date: December 13, 2022 Subjective No acute events overnight. Tolerated HD well yesterday. [place] tired post treatment but otherwise well. No complications with dialysis treatment. TDC functioning reasonably well. Pauline was seen and evaluated during hemodialysis this AM. She had no complaints at that time. Review of Systems Review of Systems: All systems reviewed & are unremarkable except as noted in HPI & below Physical Exam Constitutional: well developed; no acute distress Eyes: no scleral abnormality and no corneal abnormality Neck: normal visual inspection and trachea midline RIJ TDC Respiratory: normal respiratory effort Auscultation: lungs clear to auscultation bilaterally Cardiovascular: Rate/Rhythm: regular rate Heart Sounds: normal S1 and normal S2 Extremities: + edema Musculoskeletal: Extremities: no cyanosis and no clubbing Skin: normal turgor; no lesions Neurologic: Motor/Sensory: no tremor and no asterixis Psychiatric: Orientation: alert and oriented x 3 Results & Data Vital Signs (Past 12 Hours) Vital Signs Temp Pulse Pulse Pulse Resp BP BP 12/25/22 12:44 36.7 C 88 18 111/73 12/25/22 12:05 36.8 C 70 164/49 H 12/25/22 12:00 63 86/49 L 12/25/22 11:30 68 180/56 H 12/25/22 11:00 62 149/29 H 12/25/22 10:30 79 147/50 H 12/25/22 10:17 12/25/22 10:00 60 156/52 H 12/25/22 09:30 60 152/57 H 12/25/22 09:01 59 L 154/53 H 12/25/22 08:57 36.6 C 65 12/25/22 07:38 36.7 C 87 18 119/68 12/25/22 02:28 36.9 C 75 18 122/87 Pulse Ox O2 Del Method 12/25/22 12:44 95 Room Air 12/25/22 12:05 12/25/22 12:00 12/25/22 11:30 12/25/22 11:00 12/25/22 10:30 12/25/22 10:17 Room Air 12/25/22 10:00 12/25/22 09:30 12/25/22 09:01 12/25/22 08:57 12/25/22 07:38 93 Room Air 12/25/22 02:28 93 Room Air Laboratory Results Laboratory Results - last 24 hr 12/24/22 12/24/22 12/25/22 16:33 20:32 06:22 WBC RBC Hgb Hct MCV MCH MCHC RDW Std Deviation RDW Coeff of Amparo Plt Count MPV Absolute Nucleated RBC Nucleated RBC % (auto) Sodium 139 Potassium 3.6 Chloride 102 Carbon Dioxide 26 Anion Gap 11 BUN 75 H D Creatinine 4.31 H D Est Cr Clr Drug Dosing 13.8 Est GFR ( Amer) 11.0 Est GFR (Non-Af Amer) 9.5 BUN/Creatinine Ratio 17.4 Glucose 107 H POC Glucose 97 121 H Calcium 7.1 L Phosphorus 4.1 D Albumin 3.4 12/25/22 12/25/22 06:22 07:37 WBC 5.80 RBC 2.89 L Hgb 9.5 L Hct 29.3 L MCV 101.4 H MCH 32.9 MCHC 32.4 RDW Std Deviation 72.4 H RDW Coeff of Amparo 20.7 H Plt Count 141 MPV 10.9 Absolute Nucleated RBC 0.05 Nucleated RBC % (auto) 0.9 Sodium Potassium Chloride Carbon Dioxide Anion Gap BUN Creatinine Est Cr Clr Drug Dosing Est GFR ( Amer) Est GFR (Non-Af Amer) BUN/Creatinine Ratio Glucose POC Glucose 118 H Calcium Phosphorus Albumin PG Care Time/CCT Total # of Minutes Spent Total Time Spent with Patient: Total time spent is greater than 50% in coordination of care (as documented) at patient's floor/unit and/or counseling patient: Coding Level of Care Code 19365 SUB INP/OBS CARE 3/50MIN Diagnoses CKD (chronic kidney disease) stage V requiring chronic dialysis N18.6; Z99.2 Anemia D64.9 Fluid overload E87.70 Acute on chronic combined systolic (congestive) and diastolic (congestive) heart failure I50.43
[2022-12-25] MEDS: LANTUS PER UNIT CHARGE SQ SCH (14:34)
[2022-12-25] MEDS: FUROSEMIDE 40 MG TAB PO SCH (16:53)
[2022-12-25] MEDS: PROMETHAZINE HCL 25 MG TAB PO PRN (16:56)
--- NOTE | 2022-12-25 17:54 | Billing Data ---
Date of Service December 25, 2022 Coding Level of Care Code 91446 SUB INP/OBS CARE
[2022-12-26] MEDS: LANTUS PER UNIT CHARGE SQ SCH ×2 (01:34→11:52)
[2022-12-26 06:13] LABS: Hematocrit (blood only) 28.9 % (37.0-47.0); Hemoglobin 9.1 g/dl (12.0-16.0); Mean Corpuscular Hemoglobin 32.6 pg (25.0-34.0); Mean Corpuscular Hgb Conc 31.5 g/dL (32.0-36.0); Mean Corpuscular Volume 103.6 fL (80.0-100.0); Mean Platelet Volume 10.5 fL (9.4-12.4); Nucleated RBC # (auto) 0.04 K/uL (0-0.12); Nucleated RBC % (auto) 0.8 %; Platelet Count 132 K/uL (130-400); RDW Coefficient of Variation 20.2 % (11.5-14.5); RDW Standard Deviation 73.5 fL (36.4-46.3); Red Blood Count 2.79 M/uL (4.20-5.40); White Blood Count 5.27 K/ul (4.8-10.8)
[2022-12-26] MEDS: HEPARIN SOD 5,000 UNIT/0.5 ML VIAL SQ SCH ×3 (06:24→21:07)
--- NOTE | 2022-12-26 06:39 | Hospitalist Progress Note ---
Date of Service December 26, 2022 Assessment & Plan (1) Acute on chronic combined systolic (congestive) and diastolic (congestive) heart failure: Plan: 72yo female with a history of breast cancer (on ibrance; follows with [facility]) with bony mets, CKD4, DM2, HFmrEF, HTN, HLD, MCKENZIE, and GERD who presented with SOB, weight gain, and LE edema, admitted for a CHF exacerbation. Of note, patient was admitted from 11/04/22 - 11/08/22 for a CHF exacerbation. [id number] HFmrEF Suspected secondary to patient discontinuing lasix on 12/10/22 (patient had been on lasix 40mg qd and 20mg prn - patient had called her PCP who recommended she hold her prn dose until her next nephrology visit; however, patient misunderstood this and stopped taking lasix altogether) Echo (12/20): LV function normal, no wall motion abnormalities, borderline conc entric LVH, EF 50-55% Nephrology following; has been adjusting lasix dosing during this hospitalization, with occasional metolazone Second round of HD planned for Tuesday or Tuesday pending outpatient HD arrangements JEFFREY on CKD4 Prior baseline creatinine 3-4 with eGFR 10mL/min; has ranged from 4 to 5.2 during this hospitalization Patient has a history of short-term dialysis in 2018 in a postoperative setting Continue sodium bicarbonate 650mg daily (lowered from twice daily to once daily to reduce sodium load) 12/24: had catheter placed by Dr. Delaney and then had first dialysis; will defer to nephrology regarding timing of next dialysis 12/26: creatinine has improved from 5's to 3.2 Anemia Baseline hemoglobin 7-8, presumed secondary to worsening renal function Continue venofer and epogen per nephrology 12/22: Hgb decreased to 6.8 associated with fatigue and weakness; patient was then transfused 2u pRBC Continue to monitor Hypokalemia 12/26: patient mildly hypokalemic to 3.0; repleted with KCl 20mEq PO (x1) Trend labs as above Elevated troponin On admission, hsTroponin elevated to 47.4, which peaked at 322.9 on 12/22; patient was without CP Cardiology was consulted and recommended catheterization to elucidate type 1 vs type 2 [place]; patient refused Echo repeated on 12/20 with findings noted above Patient continues to be without CP; continue to monitor Venous stasis Continue KODY wraps, compression stockings, SCDs Fitted with new orthotics this visit to assist with gait stability Continue PT/OT Hyperphosphatemia Peaked at 6.2, has been downtrending since Patient has refused some doses of sevelamer due to nausea Continue to monitor Metastatic breast cancer [facility], receives fulvestrant monthly (500mg per month) Chemotherapy consent form signed, insurance approved, plan to administer this dose on 12/24 DM2 HbA1c 7.3% (old value - from February 2022), repeat ordered While hospitalized, lantus 10u qd and SSI Continue BSG checks, hypoglycemic protocol HTN: continue home metoprolol GERD: continue home PPI FEN: DM2 / dialysis renal diet Code status: full code DVT ppx: heparin PT/OT: ordered Case management: following Dispo: med/telemetry - discharge is pending dialysis initiation and clinical improvement (2) Elevated troponin: (3) Hyperkalemia: (4) Hypercalcemia: (5) Breast cancer: (6) MCKENZIE (nonalcoholic steatohepatitis): (7) GERD (gastroesophageal reflux disease): (8) HTN (hypertension): (9) ESRD (end stage renal disease): Admission and Anticipated Discharge Date Admission Date: December 13, 2022 Supervising Physician Co-Signing Physician Notes I personally examined the patient and verified all barrett points of history and exam, discussed case, and agree with decision making with Dr Crisostomo Feels okay. awaiting outpt HD set up/approvals/etc to be complete. hoping home tomorrow Vitals noted, in general she is awake and alert pleasant no distress. HEENT normocephalic atraumatic mucous membranes moist. Breathing unlabored no acce ssory muscle use good effort. Fluid overloadsystolic CHF, CKD, venous stasisfluid retention in spite of escalated diuretics, and rising creatinine. Either approaching a cardiorenal type of a point, or possibly remaining fluid is venous compartment sequestered, probably both. Continue compression (switched from compression to SCD compression due to skin breakdown), mobilization as best as possible. unfortunately has progressed to where she needs HD -this has been started and she is tolerating well. Outpatient dialysis being set up. probably home tomorrow as long as chair time/insurance approval/etc DVT prophylaxis heparin subcu (anemia is likely from hypoproliferation not blood loss) Subjective Patient seen and evaluated at bedside this morning. Today, patient feels well overall and has no complaints. Energy level has improved since yesterday. Patient denies CP, SOB, abdominal pain, nausea, vomiting, lightheadedness, dizziness, and diarrhea. Review of Systems Review of Systems: See HPI Physical Exam Physical Exam: Constitutional: well-appearing, no acute distress, sitting in bedside chair CV: regular rhythm, no murmur appreciated, 1+ edema appreciated bilaterally Resp: CTABL, breathing nonlabored Neuro: alert, oriented, no focal neurologic deficit Results & Data Results & Data Vital Signs (Past 12 Hours) Vital Signs Temp Pulse Pulse Resp BP Pulse Ox O2 Del Method 12/26/22 03:19 36.8 C 78 20 106/58 L 92 Room Air 12/26/22 00:00 37.0 C 65 18 118/65 92 Room Air 12/25/22 23:13 68 12/25/22 21:47 Room Air 12/25/22 19:00 37.1 C 77 18 124/69 92 Room Air Resident Activity Tracking Resident Involvement: Resident Care Provided Care Provided: Adult Hospital Medicine (5) Breast cancer Breast location: unspecified site of breast Estrogen receptor status: unspecified Laterality: left Patient sex: female Qualified Code(s): C50.912 - Malignant neoplasm of unspecified site of left female breast
[2022-12-26 06:42] LABS: Albumin Level 3.2 gm/dl (3.4-5.0); Calcium 7.2 mg/dl (8.6-10.3); Creatinine Clr Calc Pharmacy 18.6 ml/min; Est GFR (African American) 15.8 ml/min; Est GFR (Non-African American) 13.6 ml/min; Phosphorus 2.8 mg/dl (2.5-4.9)
[2022-12-26] MEDS ORDERED: POTASSIUM CHLORIDE CRTAB 20 MEQ TABCR PO STA ×2 (07:44→09:45)
[2022-12-26] MEDS: INSULIN ASPART PER UNIT CHARGE SC SCH ×4 (07:45→21:07)
[2022-12-26] MEDS: allopurinoL 100 MG TAB PO SCH (07:45)
[2022-12-26] MEDS: VENLAFAXINE HCL XR 75 MG CAPXR PO SCH (07:45)
[2022-12-26] MEDS: PANTOprazole 40 MG TAB PO SCH (07:45)
[2022-12-26] MEDS: METOPROLOL SUCC 25MG EXT REL TAB PO SCH (07:45)
[2022-12-26] MEDS: SEVELAMER HCL 800 MG TABLET PO SCH ×4 (07:45→17:21)
[2022-12-26] MEDS: FUROSEMIDE 40 MG TAB PO SCH ×2 (07:46→17:21)
--- NOTE | 2022-12-26 11:22 | Nephrology Progress Note ---
Date of Service December 26, 2022 Assessment & Plan (1) CKD (chronic kidney disease) stage V requiring chronic dialysis: Plan: Pauline was admitted with progressive advanced chronic kidney disease complicated by hyperkalemia and volume overload. TDC was placed by Dr. Delaney 12/24. Pauline received her first dialysis treatment 12/24. 2nd treatment completed yesterday. Adequate clearance and UF. TDC functioning well. Hypokalemia associated with dialysis and diuretics. 40 mEq PO KCl provided. Dietary restrictions removed. Referral has been made to [facility] for outpatient HD. Plan is for Pauline to dialyze twice weekly under the care of Dr. Varner. Renal diet -- low sodium. Repeat serum potassium tomorrow AM. Renvela QAC. Next HD treatment tomorrow or Tuesday. Will evaluate in the AM and schedule accordingly. (2) Anemia: Plan: Admitted with notable acute on chronic anenmia. Epogen 14603 units provided 12/24. 2 PRBC on 12/22/2022. (3) Fluid overload: Plan: Combination of acute on chronic CHF and advanced CKD. Improved with diuretics and HD. Continue furosemide to encourage urine output. (4) Acute on chronic combined systolic (congestive) and diastolic (congestive) heart failure: Plan: Continue furosemide to encourage urine output. No KODY/ARB due to history of hyperkalemia. May revisit RAAS blockade once stable on HD. Document I/O's and daily weight. Next HD planned for Tuesday vs. Tuesday. Admission and Anticipated Discharge Date Admission Date: December 13, 2022 Subjective No acute events overnight. Overall, Pauline reports feeling well this AM. She tolerated dialysis well yesterday. No complications with treatment. Review of Systems Review of Systems: All systems reviewed & are unremarkable except as noted in HPI & below Physical Exam Constitutional: well developed; no acute distress Eyes: no scleral abnormality and no corneal abnormality Neck: normal visual inspection and trachea midline Respiratory: normal respiratory effort Auscultation: lungs clear to auscultation bilaterally Cardiovascular: Rate/Rhythm: regular rate Heart Sounds: normal S1 and normal S2 Extremities: + edema Musculoskeletal: Extremities: no cyanosis and no clubbing Skin: normal turgor; no lesions Neurologic: Motor/Sensory: no tremor and no asterixis Psychiatric: Orientation: alert and oriented x 3 Results & Data Vital Signs (Past 12 Hours) Vital Signs Temp Pulse Resp BP Pulse Ox O2 Del Method 12/26/22 11:02 36.6 C 72 20 123/74 91 Room Air 12/26/22 08:15 Room Air 12/26/22 07:24 36.5 C 85 22 173/61 H 93 Room Air 12/26/22 03:19 36.8 C 78 20 106/58 L 92 Room Air 12/26/22 00:00 37.0 C 65 18 118/65 92 Room Air Laboratory Results Laboratory Results - last 24 hr 12/25/22 12/25/22 12/26/22 16:49 20:43 01:32 WBC RBC Hgb Hct MCV MCH MCHC RDW Std Deviation RDW Coeff of Amprao Plt Count MPV Absolute Nucleated RBC Nucleated RBC % (auto) Sodium Potassium Chloride Carbon Dioxide Anion Gap BUN Creatinine Est Cr Clr Drug Dosing Est GFR ( Amer) Est GFR (Non-Af Amer) BUN/Creatinine Ratio Glucose POC Glucose 134 H 133 H 101 H Calcium Phosphorus Albumin 12/26/22 12/26/22 12/26/22 05:27 05:27 07:27 WBC 5.27 RBC 2.79 L Hgb 9.1 L Hct 28.9 L MCV 103.6 H MCH 32.6 MCHC 31.5 L RDW Std Deviation 73.5 H RDW Coeff of Amparo 20.2 H Plt Count 132 MPV 10.5 Absolute Nucleated RBC 0.04 Nucleated RBC % (auto) 0.8 Sodium 138 Potassium 3.0 L Chloride 101 Carbon Dioxide 26 Anion Gap 11 BUN 48 H D Creatinine 3.20 H D Est Cr Clr Drug Dosing 18.6 Est GFR ( Amer) 15.8 Est GFR (Non-Af Amer) 13.6 BUN/Creatinine Ratio 15.0 Glucose 98 POC Glucose 106 H Calcium 7.2 L Phosphorus 2.8 D Albumin 3.2 L 12/26/22 11:15 WBC RBC Hgb Hct MCV MCH MCHC RDW Std Deviation RDW Coeff of Amparo Plt Count MPV Absolute Nucleated RBC Nucleated RBC % (auto) Sodium Potassium Chloride Carbon Dioxide Anion Gap BUN Creatinine Est Cr Clr Drug Dosing Est GFR ( Amer) Est GFR (Non-Af Amer) BUN/Creatinine Ratio Glucose POC Glucose 114 H Calcium Phosphorus Albumin PG Care Time/CCT Total # of Minutes Spent Total Time Spent with Patient: Total time spent is greater than 50% in coordination of care (as documented) at patient's floor/unit and/or counseling patient: Coding Level of Care Code 51121 SUB INP/OBS CARE 350MIN Diagnoses CKD (chronic kidney disease) stage V requiring chronic dialysis N18.6; Z99.2 Anemia D64.9 Fluid overload E87.70 Acute on chronic combined systolic (congestive) and diastolic (congestive) heart failure I50.43
--- NOTE | 2022-12-26 15:44 | Billing Data ---
Date of Service December 26, 2022 Coding Level of Care Code 75633 SUB INP/OBS CARE
[2022-12-27] MEDS: LANTUS PER UNIT CHARGE SQ SCH ×2 (01:32→13:16)
[2022-12-27] MEDS: HEPARIN SOD 5,000 UNIT/0.5 ML VIAL SQ SCH ×2 (06:02→17:10)
[2022-12-27] MEDS: PANTOprazole 40 MG TAB PO SCH (08:00)
[2022-12-27] MEDS: VENLAFAXINE HCL XR 75 MG CAPXR PO SCH (08:00)
[2022-12-27] MEDS: METOPROLOL SUCC 25MG EXT REL TAB PO SCH (08:00)
[2022-12-27] MEDS: SEVELAMER HCL 800 MG TABLET PO SCH ×3 (08:00→17:10)
[2022-12-27] MEDS: allopurinoL 100 MG TAB PO SCH (08:00)
[2022-12-27] MEDS: FUROSEMIDE 40 MG TAB PO SCH ×2 (08:01→17:10)
--- NOTE | 2022-12-27 08:06 | Hospitalist Progress Note ---
Date of Service December 27, 2022 Assessment & Plan (1) Acute on chronic combined systolic (congestive) and diastolic (congestive) heart failure: Plan: 72yo female with a history of breast cancer (on ibrance; follows with [facility]) with bony mets, CKD4, DM2, HFmrEF, HTN, HLD, MCKENZIE, and GERD who presented with SOB, weight gain, and LE edema, admitted for a CHF exacerbation. Of note, patient was admitted from 11/04/22 - 11/08/22 for a CHF exacerbation. Exrii-ik-sizswsp HFmrEF Suspected secondary to patient discontinuing lasix on 12/10/22 (patient had been on lasix 40mg qd and 20mg prn - patient had called her PCP who recommended she hold her prn dose until her next nephrology visit; however, patient misunderstood this and stopped taking lasix altogether) Echo (12/20): LV function normal, no wall motion abnormalities, borderline conc entric LVH, EF 50-55% Nephrology following; has been adjusting lasix dosing during this hospitalization, with occasional metolazone Second round of HD planned for Tuesday or Tuesday pending outpatient HD arrangements JEFFREY on CKD4 Prior baseline creatinine 3-4 with eGFR 10mL/min; has ranged from 4 to 5.2 during this hospitalization Patient has a history of short-term dialysis in 2018 in a postoperative setting Continue sodium bicarbonate 650mg daily (lowered from twice daily to once daily to reduce sodium load) 12/24: had catheter placed by Dr. Delaney and then had first dialysis; will defer to nephrology regarding timing of next dialysis 12/26: creatinine has improved from 5's to 3.2 Anemia Baseline hemoglobin 7-8, presumed secondary to worsening renal function Continue venofer and epogen per nephrology 12/22: Hgb decreased to 6.8 associated with fatigue and weakness; patient was then transfused 2u pRBC Continue to monitor Hypokalemia 12/26: patient mildly hypokalemic to 3.0; repleted with KCl 20mEq PO (x1) Trend labs as above Elevated troponin On admission, hsTroponin elevated to 47.4, which peaked at 322.9 on 12/22; patient was without CP Cardiology was consulted and recommended catheterization to elucidate type 1 vs type 2 [place]; patient refused Echo repeated on 12/20 with findings noted above Patient continues to be without CP; continue to monitor Venous stasis Continue KODY wraps, compression stockings, SCDs Fitted with new orthotics this visit to assist with gait stability Continue PT/OT Hyperphosphatemia Peaked at 6.2, has been downtrending since Patient has refused some doses of sevelamer due to nausea Continue to monitor Metastatic breast cancer [facility], receives fulvestrant monthly (500mg per month) Chemotherapy consent form signed, insurance approved, plan to administer this dose on 12/24 DM2 HbA1c 7.3% (old value - from February 2022), repeat ordered While hospitalized, lantus 10u qd and SSI Continue BSG checks, hypoglycemic protocol HTN: continue home metoprolol GERD: continue home PPI FEN: DM2 / dialysis renal diet Code status: full code DVT ppx: heparin PT/OT: ordered Case management: following Dispo: med/telemetry - discharge is pending dialysis initiation and clinical improvement (2) Elevated troponin: (3) Hyperkalemia: (4) Hypercalcemia: (5) Breast cancer: (6) MCKENZIE (nonalcoholic steatohepatitis): (7) GERD (gastroesophageal reflux disease): (8) HTN (hypertension): (9) ESRD (end stage renal disease): Admission and Anticipated Discharge Date Admission Date: December 13, 2022 Results & Data Results & Data Vital Signs (Past 12 Hours) Vital Signs Temp Pulse Pulse Resp BP Pulse Ox O2 Del Method 12/27/22 07:30 36.6 C 74 20 124/52 L 96 Room Air 12/27/22 03:03 37.2 C 83 18 118/55 L 97 Room Air 12/26/22 23:15 37.3 C 82 18 132/81 96 Room Air 12/26/22 23:12 79 (5) Breast cancer Breast location: unspecified site of breast Estrogen receptor status: unspecified Laterality: left Patient sex: female Qualified Code(s): C50.912 - Malignant neoplasm of unspecified site of left female breast
[2022-12-27 08:17] LABS: Hematocrit (blood only) 31.2 % (37.0-47.0); Hemoglobin 9.7 g/dl (12.0-16.0); Mean Corpuscular Hemoglobin 31.8 pg (25.0-34.0); Mean Corpuscular Hgb Conc 31.1 g/dL (32.0-36.0); Mean Corpuscular Volume 102.3 fL (80.0-100.0); Mean Platelet Volume 10.3 fL (9.4-12.4); Nucleated RBC # (auto) 0.03 K/uL (0-0.12); Nucleated RBC % (auto) 0.6 %; Platelet Count 154 K/uL (130-400); RDW Coefficient of Variation 20.1 % (11.5-14.5); RDW Standard Deviation 73.2 fL (36.4-46.3); Red Blood Count 3.05 M/uL (4.20-5.40)
[2022-12-27] MEDS: INSULIN ASPART PER UNIT CHARGE SC SCH ×3 (09:13→17:40)
[2022-12-27 10:07] LABS: Albumin Level 3.4 gm/dl (3.4-5.0); BUN Creatinine Ratio 14.1 (10-20); Calcium 7.6 mg/dl (8.6-10.3); Creatinine Clr Calc Pharmacy 15.8 ml/min; Est GFR (African American) 13.2 ml/min; Est GFR (Non-African American) 11.4 ml/min; Magnesium 2.1 mg/dl (1.7-2.4); Phosphorus 2.7 mg/dl (2.5-4.9); Potassium 3.3 mmol/L (3.5-5.1)
[2022-12-27] MEDS ORDERED: POTASSIUM CHLORIDE CRTAB 20 MEQ TABCR PO STA (10:09)
--- NOTE | 2022-12-27 10:15 | Nephrology Progress Note ---
Date of Service December 27, 2022 Assessment & Plan (1) CKD (chronic kidney disease) stage V requiring chronic dialysis: Plan: Pauline was admitted with progressive advanced chronic kidney disease complicated by hyperkalemia and volume overload. TDC was placed by Dr. Delaney 12/24. Pauline received her first dialysis treatment 12/24. 2nd treatment completed 12/25. Adequate clearance and UF. TDC functioning well. Hypokalemia associated with dialysis and diuretics. 60 mEq PO KCl provided this AM. Dietary restrictions removed. Suggest continuing 20 mEq daily PO. Orders for HD today entered into the EHR and reviewed with HD RN. I spoke to staff at [facility]. Pauline should be able to schedule outpatient treatments starting or Tuesday. Once outpatient treatment confirmed, Pauline is stable for discharge from a nephrology standpoint. Plan is for Pauline to dialy ze twice weekly under the care of Dr. Varner for ESRD. [facility]. (2) Anemia: Plan: Admitted with notable acute on chronic anenmia. Epogen 54519 units provided 12/24. 2 PRBC on 12/22/2022. (3) Fluid overload: Plan: Combination of acute on chronic CHF and advanced CKD. Improved with diuretics and HD. Continue furosemide BID to encourage urine output. (4) Acute on chronic combined systolic (congestive) and diastolic (congestive) heart failure: Plan: Continue furosemide to encourage urine output. No KODY/ARB due to history of hyperkalemia. May revisit RAAS blockade once stable on HD. Document I/O's and daily weight. Admission and Anticipated Discharge Date Admission Date: December 13, 2022 Subjective No acute events overnight. Overall, Pauline reports feeling well this AM. She hopes to be discharged home today. I discussed the plan of care with Dr. Ortiz this AM. Review of Systems Review of Systems: All systems reviewed & are unremarkable except as noted in HPI & below Physical Exam Constitutional: well developed; no acute distress Eyes: no scleral abnormality and no corneal abnormality Neck: normal visual inspection and trachea midline Respiratory: normal respiratory effort Auscultation: lungs clear to auscultation bilaterally Cardiovascular: Rate/Rhythm: regular rate Heart Sounds: normal S1 and normal S2 Extremities: + edema Musculoskeletal: Extremities: no cyanosis and no clubbing Skin: normal turgor; no lesions Neurologic: Motor/Sensory: no tremor and no asterixis Psychiatric: Orientation: alert and oriented x 3 Results & Data Vital Signs (Past 12 Hours) Vital Signs Temp Pulse Pulse Resp BP Pulse Ox O2 Del Method 12/27/22 07:30 36.6 C 74 20 124/52 L 96 Room Air 12/27/22 03:03 37.2 C 83 18 118/55 L 97 Room Air 12/26/22 23:15 37.3 C 82 18 132/81 96 Room Air 12/26/22 23:12 79 Laboratory Results Laboratory Results - last 24 hr 12/26/22 12/26/22 12/26/22 11:15 16:31 20:12 WBC RBC Hgb Hct MCV MCH MCHC RDW Std Deviation RDW Coeff of Amparo Plt Count MPV Absolute Nucleated RBC Nucleated RBC % (auto) Sodium Potassium Chloride Carbon Dioxide Anion Gap BUN Creatinine Est Cr Clr Drug Dosing Est GFR ( Amer) Est GFR (Non-Af Amer) BUN/Creatinine Ratio Glucose POC Glucose 114 H 134 H 101 H Calcium Phosphorus Magnesium Albumin 12/27/22 12/27/22 12/27/22 01:24 07:41 07:44 WBC 5.40 RBC 3.05 L Hgb 9.7 L Hct 31.2 L MCV 102.3 H MCH 31.8 MCHC 31.1 L RDW Std Deviation 73.2 H RDW Coeff of Amparo 20.1 H Plt Count 154 MPV 10.3 Absolute Nucleated RBC 0.03 Nucleated RBC % (auto) 0.6 Sodium Potassium Chloride Carbon Dioxide Anion Gap BUN Creatinine Est Cr Clr Drug Dosing Est GFR ( Amer) Est GFR (Non-Af Amer) BUN/Creatinine Ratio Glucose POC Glucose 118 H 99 Calcium Phosphorus Magnesium Albumin 12/27/22 07:44 WBC RBC Hgb Hct MCV MCH MCHC RDW Std Deviation RDW Coeff of Amparo Plt Count MPV Absolute Nucleated RBC Nucleated RBC % (auto) Sodium 139 Potassium 3.3 L Chloride 102 Carbon Dioxide 26 Anion Gap 11 BUN 52 H Creatinine 3.70 H D Est Cr Clr Drug Dosing 15.8 Est GFR ( Amer) 13.2 Est GFR (Non-Af Amer) 11.4 BUN/Creatinine Ratio 14.1 Glucose 92 POC Glucose Calcium 7.6 L Phosphorus 2.7 Magnesium 2.1 Albumin 3.4 PG Care Time/CCT Total # of Minutes Spent Total Time Spent with Patient: Total time spent is greater than 50% in coordination of care (as documented) at patient's floor/unit and/or counseling patient: Coding Level of Care Code 42750 SUB INP/OBS CARE 350MIN Diagnoses CKD (chronic kidney disease) stage V requiring chronic dialysis N18.6; Z99.2 Anemia D64.9 Fluid overload E87.70 Acute on chronic combined systolic (congestive) and diastolic (congestive) heart failure I50.43
--- NOTE | 2022-12-27 13:20 | Discharge Summary ---
Date of Service December 27, 2022 Admission HPI Per Admitting Provider Pauline is a 72 year old female with a PMH significant for Breast cancer with metastases to the bone, [place] [facility] [place] , anemia, CKD stage 4, hypercalcemia, DM II, HFrEF (LVEF of 40-45% and grade II diastolic dysfunction as of 11/05/22), MCKENZIE, GERD, HTN, dyslipidemia, and Mobitz type 1 AV block who presented to the [facility] ED on 12/13/22 with a chief complaint of SOB. In the ED the patient was found to be afebrile, hemodynamically stable, and stable on RA. Labs were remarkable for a CBC with WBC WNL, stable Hgb at 8.0, MCV of 105 (down from 109 as of 12/09/22), stable platelets, neutrophil count of 7.5 with lymphocyte count of 0.68, INR of 1.2, Cr of 4.09 (baseline is typically between 3-4), potassium of 5.6, calcium of 8.0, LFT's WNL, initial high sensitivity trop of 47, and covid negative. Chest xray was read as "1. Cardiomegaly without evidence of congestive failure. 2. Bilateral airspace opacities likely represent pulmonary edema. Correlate clinically for evidence of a superimposed infectious/inflammatory pneumonitis. Radiographic follow-up to resolution is recommended. 3. Right larger than left pleural effusions with dependent consolidation.". At the time of the exam the patient was sitting in her bedside recliner in no acute distress, currently stable on RA. She states that she had routine labs drawn on 12/09/22 and was called by who she thought was her Communication Arts Lecturer (Dr. Singh) that evening. She tells me she was told to hold all of her Lasix at that time and states that she was started on a foul-tasting brown liquid. She states that since holding her lasix she has been getting significantly swollen with increased SOB with any exertion. She denies recent fevers, chills, changes in vision, hearing, taste, and smell, chest pain, cough, abd pain, nausea, vomiting, dysuria, hematuria, melena, and recent trauma. When asked about diet and fluid intake, she states that she has not had more than 2L of oral fluids daily and watches her sodium intake closely. Per chart review, there is no recent note from Dr. Varner but there is a telephone/on duty note from her PCP on 12/09/22. The note explains that they were alerted to her renal function with a Cr. of 4.66, the note explains that she has been taking 40 mg PO lasix daily with 20 mg PO prn for increased swelling/weight gain. The note explains that the patient was instructed to hold the additional 20 mg PO prn Lasix until the patient saw Dr. Varner on 12/15. Per Dr. Varner's last clinic note of 11/16/22, the patient was supposed to be taking 40 mg PO lasix daily with instructions to increase to 40 mg PO BID for additional weight gain/swelling. I discussed Code Status with the patient, she wishes to be a Full Code and for her daughter to make medical decisions for her if she could not make them herself. Please refer to Dr. Chambers's attestation for any changes to the treatment plan Admission Exam Per Admitting Provider Physical Exam: General:In no acute distress, stated age, chronically ill-appearing but non- toxic appearing HEENT:Normocephalic, atraumatic, no scleral icterus, pupils around round, symmetrical, and reactive to light, moist mucus membranes, trachea midline, no thyromegaly Chest/Pulm:No respiratory distress, symmetrical chest expansion, decreased breath sounds in the BL lower lung solis with crackles in the upper lung solis Cardiac:RRR, no murmurs noted Abdomen:Negative for ascites and bruising, normoactive bowel sounds, soft, non-tender to palpation throughout Musculoskeletal:Symmetrical and without signs of acute trauma, upper and lower extremities with full ROM, no atrophy, spasticity, or flaccidity Extremities:Radial, dorsalis pedis, and posterior tibial pulses are intact and symmetrical, 2-3+ pitting edema in the BL LE's with weeping noted in both lower extremities Skin:Warm, dry, no rashes , lesions, or scars noted Neuro:Alert and oriented to person, place, month, year, and president, no focal defects, no tremors noted Psych:No acute distress, calm and cooperative during the exam Principal Diagnosis CHF exacerbation and JEFFREY Discharge Exam Constitutional + morbidly obese, + frail appearing, cooperative and comfortable Eyes PERRL, conjunctivae normal, anicteric sclerae ENMT external ear and nose normal, oropharynx normal Neck trachea midline and + thick neck Respiratory normal respiratory effort, lungs clear to auscultation Cardiovascular Rate/Rhythm: regular rate and regular rhythm Extremities: + edema (+2 pitting b/l L>R) hemodialysis catheter on right chest Gastrointestinal (Abdomen) Inspection/Auscultation: + abdomen distended and + abdominal edema (lower abd, pitting) Percussion/Palpation: abdomen soft; abdomen nontender Skin no rashes, warm and dry Discharge Data Allergies Allergy/AdvReac Type Severity Reaction Status Date / Time amoxicillin Allergy Severe LIPS Verified 12/13/22 16:38 SWELLED, "RED ALL OVER" doxycycline Allergy Severe LIPS Verified 12/13/22 16:38 SWELLED, "RED ALL OVER". cephalexin [From Keflex] Allergy Intermediate skin Verified 12/13/22 16:38 starts to peel off sulfamethoxazole Allergy Unknown Unknown Verified 12/13/22 16:38 [From Bactrim] trimethoprim [From Bactrim] Allergy Unknown Unknown Verified 12/13/22 16:38 atorvastatin AdvReac Intermediate Myalgia Verified 12/13/22 16:38 Consultations 12/13/22 16:19 ED Decision to Admit Stat 12/14/22 13:16 Consult Nephrology Routine 12/23/22 10:06 Consult Vascular Surgery Routine Procedures Performed Operation Date: 12/24/22 10:00 Actual Procedures p Insertion of Perm Catheter Right Jugular Approach, Ultrasound Localization of Right Jugular Vein, Fluoroscopy for Positioning, Moderate Sedation 1028- 1047(Right) - Christiano Delaney MD Ordered Studies 12/24/22 07:45 EV cvc insrt tunnel wo prt/medication specialist Routine US EV guide vascular access Routine Hospital Course (1) Acute on chronic combined systolic (congestive) and diastolic (congestive) heart failure: 72yo female with a history of breast cancer (on ibrance; follows with [facility]) with bony mets, CKD4, DM2, HFmrEF, HTN, HLD, MCKENZIE, and GERD who presented with SOB, weight gain, and LE edema, admitted for a hyperkalemia and volume overload. Asfvz-ij-gikmtpo HFmrEF Fluid overload in setting of ESRD Suspected secondary to patient discontinuing lasix on 12/10/22 (patient had been on lasix 40mg qd and 20mg prn - patient had called her PCP who recommended she hold her prn dose until her next nephrology visit; however, patient misunderstood this and stopped taking lasix altogether) Echo (12/20): LV function normal, no wall motion abnormalities, borderline concentric LVH, EF 50-55% -nephrology consulted, see below -Improved with diuretics and HD. Continue furosemide BID to encourage urine output. -No KODY/ARB due to history of hyperkalemia. May revisit RAAS blockade once stable on HD. Stage V ckd - 12/24: had catheter placed by Dr. Delaney and then had first dialysis - first dialysis treatment 12/24. 2nd treatment completed 12/25. - Received short treatment on day of discharge. - Outpatient HD set up at [facility] on tuesday. [facility] - sodium bicarbonate 650mg daily (lowered from twice daily to once daily to reduce sodium load) Hypokalemia - Hypokalemia associated with dialysis and diuretics. Replace. Dietary restrictions removed. - will call to pharmacy 20 mEq daily PO dose in am Anemia -Epogen 94859 units provided 12/24. 2 PRBC on 12/22/2022. Elevated troponin On admission, hsTroponin elevated to 47.4, which peaked at 322.9 on 12/22; patient was without CP Cardiology was consulted and recommended catheterization to elucidate type 1 vs type 2 [place]; patient refused Echo repeated on 12/20 with findings noted above Metastatic breast cancer [place] [facility] [place] (500mg per month) Chemotherapy consent form signed, insurance approved, administered this dose on 12/24 DM2 HbA1c 7.3% (old value - from February 2022), repeat ordered While hospitalized, lantus 10u qd and SSI Adele requested to administer dosages HTN: continue home metoprolol GERD: continue home PPI (2) Elevated troponin: (3) Hyperkalemia: (4) Hypercalcemia: (5) Breast cancer: (6) MCKENZIE (nonalcoholic steatohepatitis): (7) GERD (gastroesophageal reflux disease): (8) HTN (hypertension): (9) ESRD (end stage renal disease): Total Time Total Time Spent Total Time Spent (In Minutes): see attending attestation Discharge Plan Discharge Items Patient Disposition: Home - Self-Care Reason For Visit: SOB Discharge Diagnosis: CHF exacerbation with Acute Kidney Injury Activity: Per Instructions section Non-emergency contact: Primary Care Provider and Neurologist Call non-emergency contact if: you have any medication questions, your symptoms worsen and you have a fever Follow-up/Referrals: Corinne Varner MD [Physician] - Pat Alejandre MD [Primary Care Provider] - 01/04/23 3:00 pm Diet: Carb Consistent or DM2, Dialysis Renal and Low Sodium (2gm) Addtl Attending Provider Instructions: You were admitted to the hospital for a combination of heart failure and kidney injury. You were seen by nephrology. Given that your fluid status failed to improve with lasix and your kidney function continued to worsen, you were started on hemodialysis. We will arrange for your to have hemodialysis twice a week upon discharge, please be sure to keep your appointments to prevent fluid overload and toxin accumulation. Your first dialysis appointment is this Tuesday A discharge summary will be sent to your primary care physician to ensure continuity of care. Please bring this discharge summary with you to your next office appointment so that your provider can review it at that time. Follow-up appointments: Make a follow-up appointment with your PCP within the next week. It is very important that you follow up with them shortly after discharge from the hospital . Keep all your follow-up appointments as already scheduled. If you cannot make an appointment, notify your provider. Medications: Your medication list has been reviewed and reconciled upon discharge to ensure accuracy and continuity of care. An updated list of all your medications is included with your hospital discharge paperwork. Please review this list closely, and make note of any changes. Take your medications as instructed; do not skip a dose of your medicines. Make sure all of your doctors know every medicine you are taking (including fsng-imq-vtraqee medicines, vitamins, and supplements). Call your primary care provider before taking any new medicines (including kopg-zrw-dcqvjop medicines, vitamins, and supplements), because some of these may interact with your current medications, or may make your symptoms worse. Tell your primary care provider if you cannot afford your medications. CONTACT YOUR PRIMARY CARE PROVIDER if you experience any of the following: Increased swelling in your legs or abdomen Increased difficulty breathing or confusion Difficulty following your treatment plan, or difficulty taking medications CALL 911 OR GO TO THE EMERGENCY DEPARTMENT if you experience any of the following: Sudden, severe abdominal pain or nausea/vomiting Severe chest pain, or chest pain that radiates (moves) to your jaw or arm Sudden, severe shortness of breath or difficulty breathing Thank you for allowing us to participate in your care. Pending Studies at Discharge: No Stand-Alone Forms: [facility] [employer], Smoking Cessation Medications and DC Order Prescriptions: Continued omega-3 fatty acids 1,000 mg capsule 2,000 mg PO BID Qty: 360 3RF (DME) pen needle, diabetic [UltiCare Pen Needle] 32 gauge x 5/32" needle See Rx Instructions .ROUTE .COMPLEX Qty: 600 5RF Dose Instruction: USE 10 TIMES DAILY DIRECTED Rx Instructions: USE 10 TIMES DAILY DX E11.9 DIRECTED furosemide 20 mg tablet 20 mg PO QPM PRN (Reason: weight gain) Qty: 90 1RF venlafaxine 75 mg capsule,extended release 24hr 75 mg PO DAILY Qty: 90 3RF promethazine 25 mg tablet 25 mg PO Q6H PRN (Reason: nausea) Qty: 30 5RF metoprolol succinate 25 mg tablet extended release 24 hr 25 mg PO DAILY Qty: 90 3RF allopurinol 100 mg tablet 50 mg PO DAILY Qty: 45 3RF furosemide 40 mg tablet 40 mg PO BID Qty: 180 3RF insulin aspart U-100 [Novolog FlexPen U-100 Insulin] 100 unit/mL (3 mL) insulin pen 1 sliding scale dose SQ DIRECTED MDD 225 units Rx Instructions: Carb ratio 1:2; Correction Factor 1:18 for BG > 200 sevelamer HCl 800 mg tablet 800 mg PO DAILY Qty: 90 2RF Rx Instructions: must administer with a meal/food tramadol 50 mg tablet 50 mg PO Q6 PRN (Reason: Pain) Procrit 40,000 unit/mL solution 40,000 unit subcut DIRECTED Rx Instructions: Inject 40,000 units SubQ once a month and hold if Hemoglobin is greater than or equal to 11. clotrimazole-betamethasone 1-0.05 % cream 1 applic topical BID PRN (Reason: Skin Irritation) insulin glargine [Lantus Solostar U-100 Insulin] 100 unit/mL (3 mL) insulin pen 22 unit SQ BID Discontinued sodium bicarbonate 650 mg tablet 650 mg PO BID Qty: 60 3RF prednisone 10 mg tablet 10 mg PO DAILY 30 Days Qty: 30 3RF sodium polystyrene sulf-sorbtl 15-20 gram/60 mL suspension 60 ml PO 2XWK Rx Instructions: once a day twice weekly Discharge Orders: Discharge Order (Routine); Ordered 12/27/22 Ordered By: Lawanda Brewster/Other Patient Handouts: Sodium Bicarbonate Oral Tablet, Hemodialysis, Caring for Your Hemodialysis Access, Kidney Disease Reducing Potassium, Kidney Disease: Eating Less Sodium Admission Data Admit Date/Time: 12/13/22 16:28 Attending Provider: Sallie Ortiz Admit Provider: Dez Chambers Primary Care Provider: Pat Alejandre Other Providers: Dez Chambers ; Jeromy Dominguez ; Christiano Delaney ; Tio Hameed Other Interventions: Discharge Summary Assessment (RN) Last Done: 12/27/22 16:45 Supervising Physician Co-Signing Physician Notes Resident Physician Supervision Note: I independently interviewed and examined the patient and verified the barrett history and physical, reviewed labs and image studies and agree with resident findings and care plan. Resident Activity Tracking Resident Involvement: Resident Care Provided Care Provided: Adult Hospital Medicine
--- NOTE | 2022-12-29 13:59 | Post Anesthesia Assessment ---
Date of Service December 24, 2022 Post Sedation Assessment Recovery Score Activity: Moves 4 extremities Respiration: Deep Breath/Cough Circulation: +/-20% PreAnes Value Consciousness: Fully Awake Oxygen Saturation: > 92% On Room Air Post Anesthesia Score: 10 Discharge Sedation Level of Care: Fast Track Phase II Post Sedation Plan On clinical assessment, the patient appears to have tolerated the sedation without complications. Patient is recovering as anticipated. Patient will continue to be monitored by nursing and may be discharged when sedation discharge criteria are met per below protocol. Upon Completions of procedure up to 15 minutes continue every 5 minute vital signs and the P.A.R. score; then discharge to a Phase I or Fast Track to Phase II per the following guidelines: * Discharge Patient to appropriate Phase II area if PAR is 8 or greater or return to pre- procedure baseline. The post - procedure orders will be as directed. * If PAR score is less than 8 or not return to pre-procedure baseline then patient will follow Phase I monitoring till PAR is reached for Phase II. The Phase I may be done in procedure room or may call to secure a Phase I area. * If naloxone or flumazenil are used for reversal, hold in Phase I for continued monitoring from when last reversal dose was given for a minimum of 60 minutes or longer pending the nurse and/or physician discretion of patient condition before discharge to Phase II. Please call the Sedation Physician to re-evaluate and complete post-note for discharge to Phase II area. Do NOT discharge from procedure sedation or Phase 1 until post- sedation evaluation note is complete by procedure /sedation MD Sedation Discharge Instructions to be given to the patient at discharge to home.
== END 2022-12-27 17:40 | disposition home or self-care (01) | DRG 291 ==
LOC: ED 14:33 → 2W 16:28 → SUATTDRO 16:28 → 2W 18:14

== ENCOUNTER 2023-09-13 13:59 | Inpatient (IN) ==
--- NOTE | 2023-09-13 14:56 | Emergency Department Note ---
History of Present Illness General Chief complaint: Back Injury/Pain Stated complaint: BACK PAIN Time Seen by Provider: 09/13/23 14:37 History of Present Illness Maximum Pain Intensity: 8 73-year-old female with past medical history significant for metastatic breast cancer, ESRD on hemodialysis, type 2 diabetes, hypertension, hyperlipidemia who presents to the emergency department accompanied by daughter for evaluation of low back pain. Patient reports she has been dealing with back pain for the last few months that has gotten progressively worse prompting evaluation today. Per review of records, she was seen by her PCP on 06/28 for similar complaints. She has a history of metastatic breast cancer to the lumbar spine which were noted on CT in 05/17. She is currently on Fulvestrant injections and follows with Dr. Pichardo with [facility]. She had x-ray of the lumbar spine performed as outpatient today ordered by her PCP. This demonstrated "moderate loss of height of L1, new since CT on 11/05/2022. This could reflect a pathological fracture given sclerotic lesions on that exam or a benign compression fracture could appear similar. Moderate multilevel degenerative disc disease and facet arthrosis within the lumbar spine." Patient notes 2 falls in the last month but is unsure of any inciting injury that is worsened her back pain. She denies numbness/tingling/weakness in her lower legs, saddle paresthesias, bowel or bladder incontinence. She was taking tramadol for her pain which was initially working but is not any longer. She notes difficulty with ambulating over the last 3 weeks. She is on hemodialysis via right IJ catheter and has missed the last 3 sessions as she "cannot walk." She denies chest pain, shortness of breath, abdominal pain, fever/chills, nausea/vomiting, lower leg swelling. Home Medications Medication Instructions Recorded Confirmed Type omega-3 fatty acids 1,000 mg 2,000 mg (2 x 1,000 mg) PO BID 07/19/22 09/13/23 Rx capsule #360 caps promethazine 25 mg tablet 25 mg PO Q6H PRN nausea #30 tabs 03/30/23 06/28/23 Rx allopurinol 100 mg tablet 50 mg (1/2 x 100 mg) PO DAILY #45 06/28/23 09/13/23 Rx tabs furosemide 40 mg tablet 40 mg PO BID #180 tabs 06/28/23 09/13/23 Rx insulin aspart U-100 100 unit/mL See Rx Instructions subcut 06/28/23 09/13/23 Rx (3 mL) subcutaneous pen (Novolog DIRECTED #135 mL FlexPen U-100 Insulin aspart) lidocaine 5 % topical patch 1 patch topical DAILY #30 ea 06/28/23 09/13/23 Rx metoprolol succinate 25 mg 25 mg PO DAILY #90 tabs 06/28/23 09/13/23 Rx tablet,extended release 24 hr pen needle, diabetic 32 gauge x #600 ea 06/28/23 06/28/23 Rx 32" (BD Sheila 2nd Gen Pen Needle) tramadol 50 mg tablet 50 mg PO Q6H PRN Pain #30 tabs 06/28/23 09/13/23 Rx venlafaxine 75 mg capsule,extended 75 mg PO DAILY #90 caps 06/28/23 09/13/23 Rx release 24 hr ciprofloxacin HCl 250 mg tablet 250 mg PO DAILY UTI #7 tabs 09/06/23 Rx prednisone 10 mg tablet 10 mg PO DAILY #30 tabs 09/06/23 09/13/23 Rx insulin glargine 100 unit/mL (3 10 unit subcut BID 09/13/23 09/13/23 History mL) subcutaneous pen (Lantus Solostar U-100 Insulin) Allergies Allergy/AdvReac Type Severity Reaction Status Date / Time amoxicillin Allergy Severe LIPS Verified 06/28/23 13:29 SWELLED, "RED ALL OVER" doxycycline Allergy Severe LIPS Verified 06/28/23 13:29 SWELLED, "RED ALL OVER". cephalexin [From Keflex] Allergy Intermediate skin Verified 06/28/23 13:29 starts to peel off sulfamethoxazole Allergy Unknown Unknown Verified 06/28/23 13:29 [From Bactrim] trimethoprim [From Bactrim] Allergy Unknown Unknown Verified 06/28/23 13:29 atorvastatin AdvReac Intermediate Myalgia Verified 06/28/23 13:29 Past Med/Surg History Medical History CKD (chronic kidney disease) stage V requiring chronic dialysis Elevated troponin Anemia Iron deficiency anemia (HFpEF) heart failure with preserved ejection fraction Mobitz type 1 second degree AV block Breast cancer diagnosed 2020 Statin myopathy Hyperuricemia Crystal arthropathy Candidal intertrigo Chronic stasis dermatitis Dyslipidemia Seborrheic dermatitis Type 2 diabetes mellitus HTN (hypertension) GERD (gastroesophageal reflux disease) MCKENZIE (nonalcoholic steatohepatitis) Surgical History History of tonsillectomy and adenoidectomy Hx of cholecystectomy History of appendectomy Humerus fracture surgical repair Family History Father Depression Diabetes Mother Hypertension Kidney stones Gallbladder disease Denies family history of Ovarian cancer Prostate cancer Myocardial infarction Breast cancer Colorectal cancer Social History Smoking Status: Never smoker Second Hand Exposure: No; Do You Dip or Chew Tobacco: No; Hx Alcohol Use: No Hx Substance Use: No Preferred Language: Niuean Communication Ability: Effective Visual Impairment: Limited Hearing Ability: Normal Wafer Fabrication Technician Required: No Beliefs That Will Affect Care: None marital status: Current Living Situation: Spouse 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 Feels Safe at Home: Yes Childhood Exposure to Second-Hand Smoke: No Diet: regular Dental Care, Regularly: Yes Physical Activity Frequency: Does not Exercise Seatbelt Use: never Sunscreen Use: No Assistive Devices: Cane, Mechanical Lift, Scooter/Electric Scooter and Walker Physical Exam Vital Signs Vital Signs - 24 hr 09/13/23 14:15 09/13/23 14:43 09/13/23 17:24 Temperature 36.8 C Temperature Source Temporal Artery Scan Pulse Rate 70 73 38 L Pulse Rate from SpO2 Sensor Respiratory Rate 18 15 Blood Pressure 140/49 L 143/75 H Blood Pressure Mean 79 97 Pulse Oximetry 95 98 Oxygen Delivery Method Room Air Room Air Sepsis Recent Fever Within 48 Hours No Sepsis New/Unexplained Change in Mental Status No Sepsis Action Taken by Nursing No Action Required 09/13/23 17:25 09/13/23 17:32 09/13/23 18:00 Temperature Temperature Source Pulse Rate 47 L 88 69 Pulse Rate from SpO2 Sensor 70 107 H 77 Respiratory Rate 12 22 21 Blood Pressure 101/86 Blood Pressure Mean 91 Pulse Oximetry 100 92 93 Oxygen Delivery Method Room Air Room Air Sepsis Recent Fever Within 48 Hours Sepsis New/Unexplained Change in Mental Status Sepsis Action Taken by Nursing 09/13/23 18:36 Temperature Temperature Source Pulse Rate 87 Pulse Rate from SpO2 Sensor Respiratory Rate Blood Pressure Blood Pressure Mean Pulse Oximetry Oxygen Delivery Method Sepsis Recent Fever Within 48 Hours Sepsis New/Unexplained Change in Mental Status Sepsis Action Taken by Nursing Constitutional: alert and oriented x3. no acute distress. nontoxic HEENT: normocephalic, atraumatic. normal conjunctiva.PERRLA. EOM's grossly intact. Neck: neck is supple, nontender. midline C-spine nontender Respiratory: lungs are clear to auscultation without wheezes, rhonchi, or rales bilaterally. equal chest rise. normal respiratory effort, no accessory muscle use. Cardiovascular: normal heart sounds without murmur. regular rate and rhythm. GI: abdomen is soft, nontender. No palpable masses. No rebound tenderness or guarding. MSK: Moves all 4 extremities spontaneously. Tender to palpation along the midline lumbar spine Peripheral vascular: Lower extremities warm and well perfused with palpable pedal pulses. Brisk capillary refill of all digits. Sensation grossly intact Psych:appropriate mood and affect. Course Administered Medications Discontinued Medications Acetaminophen (Ofirmev) 1,000 mg in 100 mls @ 400 mls/hr IV NOW STA Stop: 09/13/23 16:25 Last Infusion: 09/13/23 16:29 Dose: Infused Documented By: Admin: 09/13/23 16:14 Dose: 400 mls/hr Documented By: SONNY Lidocaine (Lidocaine 5% 1 Patch) 1 patch TD NOW STA Stop: 09/13/23 16:49 Last Admin: 09/13/23 17:21 Dose: 1 patch Documented By: TORIBIO Morphine Sulfate (Morphine Sulfate 4 Mg/Ml 1 Ml Carp\\Vial) 4 mg IV NOW STA Stop: 09/13/23 15:19 Last Admin: 09/13/23 15:48 Dose: 4 mg Documented By: SONNY Morphine Sulfate (Morphine Sulfate 4 Mg/Ml 1 Ml Carp\\Vial) 4 mg IV NOW STA Stop: 09/13/23 16:19 Last Admin: 09/13/23 17:40 Dose: Not Given Documented By: TORIBIO Tramadol HCl (Tramadol Hcl 50 Mg Tablet) 50 mg PO NOW STA Stop: 09/13/23 17:47 Last Admin: 09/13/23 18:18 Dose: 50 mg Documented By: TORIBIO Medical Decision Making Differential Diagnosis Musculoskeletal, disc herniation, fracture, metastatic disease, cord compression, discitis, sciatica, cauda equina, infection, aortic disease, renal colic, gastrointestinal, as well as other pathologies. Laboratory Data Attestation: I reviewed the patient's lab results. 09/13/23 15:44 09/13/23 15:44 Lab Results 09/13/23 09/13/23 09/13/23 Range/Units 15:40 15:44 15:49 WBC 8.61 (4.8-10.8) K/ul RBC 3.57 L (4.20-5.40) M/uL Hgb 11.9 L (12.0-16.0) g/dl Hct 36.5 L (37.0-47.0) % MCV 102.2 H (80.0-100.0) fL MCH 33.3 (25.0-34.0) pg MCHC 32.6 (32.0-36.0) g/dL RDW Std Deviation 55.1 H (36.4-46.3) fL RDW Coeff of Amparo 14.6 H (11.5-14.5) % Plt Count 241 (130-400) K/uL MPV 9.8 (9.4-12.4) fL Immature Gran % (Auto) 0.6 % Neut % (Auto) 82.5 % Lymph % (Auto) 8.2 % [place] % (Auto) 5.6 % Eos % (Auto) 2.9 % Baso % (Auto) 0.2 % Neut # (Auto) 7.10 H (1.40-6.50) K/uL Lymph # (Auto) 0.71 L (1.20-3.40) K/uL [place] # (Auto) 0.48 (0.11-0.59) K/uL Eos # (Auto) 0.25 (0.00-0.50) K/uL Baso # (Auto) 0.02 (0.00-0.20) K/uL Immature Gran # (Auto) 0.05 (0.01-0.20) K/uL Sodium 135 L (136-145) mmol/L Potassium 3.5 (3.5-5.1) mmol/L Chloride 96 L (98-107) mmol/L Carbon Dioxide 26 (21-32) mmol/L Anion Gap 13 H (3-11) BUN 52 H (6-23) mg/dl Creatinine 4.51 H* (0.6-1.2) mg/dl Est Cr Clr Drug Dosing Not Reportable Est GFR ( Amer) 10.3 ml/min Est GFR (Non-Af Amer) 8.9 ml/min BUN/Creatinine Ratio 11.5 (10-20) Glucose 125 H (70-99(Fasting)) mg/dl POC Glucose (70-99) mg/dl Calcium 12.9 H* (8.6-10.3) mg/dl Ionized Calcium (1.12-1.32) mmol/L Phosphorus 4.4 (2.5-4.9) mg/dl Magnesium 2.2 (1.7-2.4) mg/dl Total Bilirubin 0.9 (0.2-1.0) mg/dl AST 20 (13-39) U/L ALT 18 (7-52) U/L Alkaline Phosphatase 129 H (34-104) U/L Total Protein 7.8 (6.0-8.3) gm/dl Albumin 3.5 (3.4-5.0) gm/dl Globulin 4.3 H (2.5-4.0) gm/dl Albumin/Globulin Ratio 0.8 L (0.9-2) 25-OH Vitamin D Total 15.1 L (30-100) ng/ml Urine Color Yellow Urine Appearance Cloudy A (Clear) Urine pH 6.5 (4.5-7.5) Ur Specific [place] 1.011 (1.000-1.030) Urine Protein 2+ H (Negative) Urine Glucose (UA) Negative (Negative) Urine Ketones Negative (Negative) Urine Blood 1+ H (Negative) Urine Nitrite Negative (Negative) Urine Bilirubin Negative (Negative) Urine Urobilinogen Negative (Negative) Ur Leukocyte Esterase 2+ H (Negative) Urine WBC (Auto) >30 H (0-5) /hpf Urine RBC (Auto) 10-30 H (0-4) /hpf U Hyaline Cast (Auto) 1-5 (0-5) /lpf U Epithel Cells (Auto) >30 H (0-5) /lpf Urine Bacteria (Auto) 1+ H (Negative) Urine Crystals Not Reportable Calcium Oxalate Crystal Present A (None Prsent) 12/19/23 12/19/23 Range/Units 18:47 19:10 WBC (4.8-10.8) K/ul RBC (4.20-5.40) M/uL Hgb (12.0-16.0) g/dl Hct (37.0-47.0) % MCV (80.0-100.0) fL MCH (25.0-34.0) pg MCHC (32.0-36.0) g/dL RDW Std Deviation (36.4-46.3) fL RDW Coeff of Amparo (11.5-14.5) % Plt Count (130-400) K/uL MPV (9.4-12.4) fL Immature Gran % (Auto) % Neut % (Auto) % Lymph % (Auto) % [place] % (Auto) % Eos % (Auto) % Baso % (Auto) % Neut # (Auto) (1.40-6.50) K/uL Lymph # (Auto) (1.20-3.40) K/uL [place] # (Auto) (0.11-0.59) K/uL Eos # (Auto) (0.00-0.50) K/uL Baso # (Auto) (0.00-0.20) K/uL Immature Gran # (Auto) (0.01-0.20) K/uL Sodium (136-145) mmol/L Potassium (3.5-5.1) mmol/L Chloride (98-107) mmol/L Carbon Dioxide (21-32) mmol/L Anion Gap (3-11) BUN (6-23) mg/dl Creatinine (0.6-1.2) mg/dl Est Cr Clr Drug Dosing Est GFR ( Amer) ml/min Est GFR (Non-Af Amer) ml/min BUN/Creatinine Ratio (10-20) Glucose (70-99(Fasting)) mg/dl POC Glucose 134 H (70-99) mg/dl Calcium (8.6-10.3) mg/dl Ionized Calcium 1.55 H (1.12-1.32) mmol/L Phosphorus (2.5-4.9) mg/dl Magnesium (1.7-2.4) mg/dl Total Bilirubin (0.2-1.0) mg/dl AST (13-39) U/L ALT (7-52) U/L Alkaline Phosphatase (34-104) U/L Total Protein (6.0-8.3) gm/dl Albumin (3.4-5.0) gm/dl Globulin (2.5-4.0) gm/dl Albumin/Globulin Ratio (0.9-2) 25-OH Vitamin D Total (30-100) ng/ml Urine Color Urine Appearance (Clear) Urine pH (4.5-7.5) Ur Specific [place] (1.000-1.030) Urine Protein (Negative) Urine Glucose (UA) (Negative) Urine Ketones (Negative) Urine Blood (Negative) Urine Nitrite (Negative) Urine Bilirubin (Negative) Urine Urobilinogen (Negative) Ur Leukocyte Esterase (Negative) Urine WBC (Auto) (0-5) /hpf Urine RBC (Auto) (0-4) /hpf U Hyaline Cast (Auto) (0-5) /lpf U Epithel Cells (Auto) (0-5) /lpf Urine Bacteria (Auto) (Negative) Urine Crystals Calcium Oxalate Crystal (None Prsent) Imaging Data Radiologist's Impression: Lumbar Spine CT 09/13/23 15:19 CT lumbar spine wo con CLINICAL HISTORY: Back Pain TECHNIQUE: Multidetector row helical CT of the lumbar spine was performed without administration of intravenous contrast. Coronal and sagittal reformations were obtained. Automated dose lowering techniques and/or adjustment according to patient size were utilized for this exam. CT DOSE: 1131.19 mGy.cm Comparison: Comparison is made to CT lumbar spine 05/22/2022 FINDINGS: For counting purposes, the last complete intervertebral disc space is considered L5-S1. Acute fractures are seen in the vertebral body of L1 extending to the posterior aspect of the vertebral body. The L1 vertebral body is notably radiolucent. There is retropulsion of approximately 4 mm. The posterior elements are not definitely affected. There is a fracture of the L1 transverse process. There is an acute fracture of the superior endplate of L2 without involvement of the posterior aspect of the vertebral body with the posterior elements. Multilevel degenerative changes are seen. Atherosclerotic changes are seen in the aorta. Redemonstration of osteoblastic lesion of L4. IMPRESSION: 1. There is a fracture of the L1 vertebral body involving the anterior and posterior aspects of the vertebral body but without involvement of the posterior elements, with notable radiolucency concerning for lytic disease resulting in a pathologic fracture. 4 mm retropulsion is seen. 2. Left transverse process fracture of L1. 3. Fracture of the superior endplate of L2. ACT 112: Negative or not required by law. Electronically signed by: Zack Otoole M.D. 09/13/2023 4:19 PM Chest X-Ray 09/13/23 15:20 XR chest 1V portable CLINICAL HISTORY: missed dialysis TECHNIQUE: Single frontal radiograph of the chest was obtained. Comparison: Comparison is made to chest radiograph 12/18/2022 FINDINGS: Right dual lumen catheter is seen. Right humeral orthopedic hardware is unchanged. Calcified aortic knob is seen. The lungs are clear. No evidence of pleural effusion or pneumothorax. IMPRESSION: No acute chest disease, in particular no significant pulmonary edema. ACT 112: Negative or not required by law. Electronically signed by: Zack Otoole M.D. 09/13/2023 3:41 PM MDM Narrative 73-year-old female with past medical history as above presents emergency department for evaluation of low back pain. Review of pertinent history and past medical history performed. Vital signs in ED stable, afebrile. Patient was seen and evaluated as above. IV access was established and labs and imaging were obtained. CBC without leukocytosis or acute anemia. Hemoglobin 11.9 and chronic. CMP demonstrates sodium 135, potassium 3.5, calcium elevated at 12.9 (chronic). Cr 4.51 up from baseline. Alk phos elevated 129, remaining LFTs unremarkable. Urinalysis demonstrates +2 protein, +1 leukocyte esterase and bacteria, +[address] of the lumbar spine obtain given Xray findings and demonstrates fracture of the L1 vertebral body involving the anterior and posterior aspects of the vertebral body but without involvement of the posterior elements, with notable radiolucency concerning for lytic disease resulting in a pathologic fracture. 4 mm retropulsion is seen. Left transverse process fracture of L1. Fracture of the superior endplate of L2. Chronic osteoblastic lesion at L4. On exam, patient is well-appearing in no acute distress. Lungs CTA. Abdominal exam benign without focal tenderness. She is tender along the midline spine. Lower extremities neurovascularly intact. She denies bowel or bladder incontinence. Patient was medicated with IV morphine for her pain. Upon returning from CT, patient notes significant exacerbation in her pain. She was ordered IV Tylenol and an additional dose of morphine. I was notified by nursing that she had a brief episode of bradycardia into the 30s 40s and the additional morphine was not provided. She was ordered a lidocaine patch as well as p.o. tramadol for pain. Patient did have 1 episode of emesis secondary to her pain. They were updated on all exam findings and test results. She has new pathological fractures of the L1 and L2 which is likely the source of her worsening back pain. Her labs are consistent with ESRD and her missing her last 3 dialysis sessions. She also has a mild UTI. Given workup today as well as intractable back pain, I did recommend admission to the hospital for further evaluation and management. She was agreeable to this. Case was discussed with hospitalist physician construction management assistant, Duran Weiss PA-C, who graciously accepted patient to their service for continued care. Patient was admitted in stable condition. Case was discussed with ED attending, Dr. Street, who agrees with workup and treatment plan. Impression & Plan Pathologic lumbar vertebral fracture, Hypercalcemia, ESRD on dialysis, Intractable back pain Discharge Plan Visit Data Chief Complaint: Back Injury/Pain Stated Complaint: BACK PAIN ED Provider: Sonny Street ED Midlevel Provider: Alicia Bobo Discharge Problem: Pathologic lumbar vertebral fracture, Hypercalcemia, ESRD on dialysis, Intractable back pain Patient Disposition: Admitted As Inpatient Forms Stand Alone Forms: My [facility] [employer] Prescriptions Prescriptions: No Action omega-3 fatty acids 1,000 mg capsule 2,000 mg PO BID Qty: 360 3RF ciprofloxacin HCl 250 mg tablet 250 mg PO DAILY Qty: 7 0RF prednisone 10 mg tablet 10 mg PO DAILY Qty: 30 3RF promethazine 25 mg tablet 25 mg PO Q6H PRN (Reason: nausea) Qty: 30 5RF allopurinol 100 mg tablet 50 mg PO DAILY Qty: 45 3RF furosemide 40 mg tablet 40 mg PO BID Qty: 180 3RF insulin aspart U-100 [Novolog FlexPen U-100 Insulin] 100 unit/mL (3 mL) insulin pen See Rx Instructions SQ DIRECTED MDD 225 units Qty: 135 3RF Rx Instructions: Take with meals subcutaneously as directed; Carb ratio 1:2; Correction Factor 1:18 for BG > 200 metoprolol succinate 25 mg tablet extended release 24 hr 25 mg PO DAILY Qty: 90 3RF venlafaxine 75 mg capsule,extended release 24hr 75 mg PO DAILY Qty: 90 3RF (DME) pen needle, diabetic [BD Sheila 2nd Gen Pen Needle] 32 gauge x 5/32" needle See Rx Instructions .Route Qty: 600 3RF Rx Instructions: use up to 10 x daily for insulin injections tramadol 50 mg tablet 50 mg PO Q6H PRN (Reason: Pain) Qty: 30 1RF lidocaine 5 % adhesive patch,medicated 1 patch topical DAILY Qty: 30 1RF Rx Instructions: leave on most painful area for up to 12 hrs insulin glargine [Lantus Solostar U-100 Insulin] 100 unit/mL (3 mL) insulin pen 10 unit SQ BID Referrals Referrals: Pat Alejandre MD [Primary Care Provider] -
[2023-09-13] MEDS ORDERED: MoRPHine SULFATE 4 MG/ML 1 ML CARP\\VIAL IV STA (15:18)
--- NOTE | 2023-09-13 15:43 | XRay Report ---
XR chest 1V portable CLINICAL HISTORY: missed dialysis TECHNIQUE: Single frontal radiograph of the chest was obtained. Comparison: Comparison is made to chest radiograph 12/18/2022 FINDINGS: Right dual lumen catheter is seen. Right humeral orthopedic hardware is unchanged. Calcified aortic k nob is seen. The lungs are clear. No evidence of pleural effusion or pneumothorax. IMPRESSION: No acute chest disease, in particular no significant pulmonary edema. ACT 112: Negative or not required by law. Electronically signed by: Zack Otoole M.D. 09/13/2023 3:41 PM
[2023-09-13 16:01] LABS: Basophils # (auto) 0.02 K/uL (0.00-0.20); Basophils % (auto) 0.2 %; Eosinophils # (auto) 0.25 K/uL (0.00-0.50); Eosinophils % (auto) 2.9 %; Hematocrit (blood only) 36.5 % (37.0-47.0); Hemoglobin 11.9 g/dl (12.0-16.0); Immature Granulocytes # (auto) 0.05 K/uL (0.01-0.20); Immature Granulocytes % (auto) 0.6 %; Lymphocytes # (auto) 0.71 K/uL (1.20-3.40); Lymphocytes % (auto) 8.2 %; Mean Corpuscular Hemoglobin 33.3 pg (25.0-34.0); Mean Corpuscular Hgb Conc 32.6 g/dL (32.0-36.0); Mean Corpuscular Volume 102.2 fL (80.0-100.0); Mean Platelet Volume 9.8 fL (9.4-12.4); Monocytes # (auto) 0.48 K/uL (0.11-0.59); Monocytes % (auto) 5.6 %; Neutrophils % (auto) 82.5 %; Platelet Count 241 K/uL (130-400); RDW Coefficient of Variation 14.6 % (11.5-14.5); RDW Standard Deviation 55.1 fL (36.4-46.3); Red Blood Count 3.57 M/uL (4.20-5.40); White Blood Count 8.61 K/ul (4.8-10.8)
[2023-09-13] MEDS ORDERED: ACETAMINOPHEN 1,000 MG/100 ML VIAL IV STA (16:11)
[2023-09-13 16:13] LABS: Appearance Urine Cloudy (Clear); Bacteria Urine Automated 1+ (Negative); Bilirubin Urine Negative (Negative); Blood Urine 1+ (Negative); Color Urine Yellow; Epithelial Cell Urine Auto >30 /lpf (0-5); Glucose Urine UA Negative (Negative); Ketones Urine Negative (Negative); Leukocyte Esterase Urine 2+ (Negative); Nitrite Urine Negative (Negative); Protein Urine 2+ (Negative); Specific Gravity Urine 1.011 (1.000-1.030); Urobilinogen Urine Negative (Negative); WBC Urine Automated >30 /hpf (0-5); pH Urine 6.5 (4.5-7.5)
--- NOTE | 2023-09-13 16:21 | CT Scan Report ---
CT lumbar spine wo con CLINICAL HISTORY: Back Pain TECHNIQUE: Multidetector row helical CT of the lumbar spine was performed without administration of i ntravenous contrast. Coronal and sagittal reformations were obtained. Automated dose lowering techniq ues and/or adjustment according to patient size were utilized for this exam. CT DOSE: 1131.19 mGy.cm Comparison: Comparison is made to CT lumbar spine 05/22/2022 FINDINGS: For counting purposes, the last complete intervertebral disc space is considered L5-S1. Acute fractures are seen in the vertebral body of L1 extending to the posterior aspect of the vertebr al body. The L1 vertebral body is notably radiolucent. There is retropulsion of approximately 4 mm. T he posterior elements are not definitely affected. There is a fracture of the L1 transverse process. There is an acute fracture of the superior endplate of L2 without involvement of the posterior aspect of the vertebral body with the posterior elements. Multilevel degenerative changes are seen. Atheros clerotic changes are seen in the aorta. Redemonstration of osteoblastic lesion of L4. IMPRESSION: 1. There is a fracture of the L1 vertebral body involving the anterior and posterior aspects of the vertebral body but without involvement of the posterior elements, with notable radiolucency concernin g for lytic disease resulting in a pathologic fracture. 4 mm retropulsion is seen. 2. Left transverse process fracture of L1. 3. Fracture of the superior endplate of L2. ACT 112: Negative or not required by law. Electronically signed by: Zack Otoole M.D. 09/13/2023 4:19 PM
[2023-09-13 16:27] LABS: Calcium Oxalate Crystals Urine Present (None Prsent)
[2023-09-13 16:30] LABS: Alanine Aminotransferase 18 U/L (7-52); Albumin Globulin Ratio 0.8 (0.9-2); Albumin Level 3.5 gm/dl (3.4-5.0); Alkaline Phosphatase 129 U/L (34-104); Anion Gap 13 (3-11); Aspartate Aminotransferase 20 U/L (13-39); BUN Creatinine Ratio 11.5 (10-20); Bilirubin,Total 0.9 mg/dl (0.2-1.0); Blood Urea Nitrogen 52 mg/dl (6-23); Calcium 12.9 mg/dl (8.6-10.3); Carbon Dioxide 26 mmol/L (21-32); Chloride 96 mmol/L (98-107); Est GFR (African American) 10.3 ml/min; Est GFR (Non-African American) 8.9 ml/min; Globulin 4.3 gm/dl (2.5-4.0); Glucose 125 mg/dl (70-99(Fasting)); Potassium 3.5 mmol/L (3.5-5.1); Sodium 135 mmol/L (136-145); Total Protein 7.8 gm/dl (6.0-8.3)
--- NOTE | 2023-09-13 16:36 | Emergency Department Note ---
ED Visit Note I was consulted by the Advanced Practice Provider. I personally made/approved the management plan and take responsibility for the patient management. I performed a substantive portion of the visit. This includes the aspects of: [-Patient's case was presented to me by the YADIRA, patient has a history of end- stage renal disease and has missed dialysis 3 times. Patient is also complaining of lumbar back pain. [-Medical decision making differential diagnosis includes elevated creatinine, chronic renal failure, metastatic disease, lumbar fractures [-I independently interpreted the following studies:][Labwork, included elevated creatinine] [I agree with the YADIRA's evaluation and treatment plan .
[2023-09-13] MEDS ORDERED: LIDOCAINE 5% 1 PATCH TD STA (16:48)
[2023-09-13] MEDS: MoRPHine SULFATE 4 MG/ML 1 ML CARP\\VIAL IV STA ×2 (17:21→17:40)
--- NOTE | 2023-09-13 17:33 | History & Physical Report ---
Date of Service September 13, 2023 Assessment & Plan (1) Intractable back pain: Plan: Acute worsening of back pain x 2 weeks, in the setting of metastatic breast cancer to the lumbar spine Lumbar spine CT revealed fracture of L1 concerning for lytic disease resulting i n pathologic fracture; also fracture of superior endplate of L2 Patient's back pain was acutely exacerbated by lying supine during CT Recliner chair ordered Patient only takes tramadol at home for pain; will continue tramadol 50 mg p.o. q6h as needed for pain (1st line) For breakthrough pain: Acetaminophen 650 mg p.o. q4h as needed for pain 1-3/fever Dilaudid 0.25 mg IV q4h for pain 4-6 Dilaudid 0.5 mg IV q4h for pain 7-10 Patient reports she has not done well on morphine in the past Last BM on 09/12; added Miralax powder daily as needed for opioid-induced constipation Lidocaine 5% patch applied to lower back daily Patient reported 2 episodes of vomiting secondary to back pain; Zofran 4 mg IV q4h as needed for nausea Radiation oncology consulted for consideration of radiation to back for pain relief Ortho spine consulted for 4 mm retropulsion seen on lumbar spine CT A.m. CBC, CMP, mag, Phos, PT/INR (2) Breast cancer: Plan: Dx in 2020; now metastatic to spine Follows with [facility] Patient was scheduled to have a Precedex shot at [facility] in [place] on 09/15 for back Oncology consulted for hypercalcemia malignancy (3) Hypercalcemia: Plan: Ca 12.9 on arrival Longstanding hypercalcemia that did not respond to trial of Prolia Likely secondary to metastatic cancer; not on bisphosphonates given renal function Patient's hypercalcemia was being managed with her prednisone 5 mg daily; being taken for granulomatous disease, refractory hypercalcemia; recently increased to 10 mg daily PTH, vit D, ionized calcium, mag, Phos, ordered, pending Continue prednisone 10 mg daily; given in the ED (4) ESRD (end stage renal disease): Plan: HD on M & Fr BUN 52; A&Ox3 Potassium WNL at 3.5 Patient reports that she has missed her last 3 sessions due to inability to walk Last dialysis would have been 09/02 Avoid nephrotoxic agents Nephrology consulted for inpatient dialysis (5) Type 2 diabetes mellitus: Plan: Glucose 125 on arrival Last A1c at 5.4% on 01/17/2023 On insulin glargine 10 units BID at home, per POA (Adele) Will place on Lantus 14u BID while inpatient; on steroids SSI; target BSG range 110-150mg/dL, CF 25, carb ratio 10 T2DM diet Adjust regimen as needed Pharmacy glycemic consult No need for a.m. A1c given ESRD (6) HTN (hypertension): Plan: BP 140/49 at time of admission Continue metoprolol (7) MCKENZIE (nonalcoholic steatohepatitis): Plan: Chronic; stable; mildly elevated alk phos at 129 Otherwise LFTs WNL; continue to monitor (8) Asymptomatic bacteriuria: Plan: In the setting of ESRD UA positive on arrival Urine culture ordered, pending Clinically, she denies burning with urination and dysuria; she reports she is currently producing urine Patient was prescribed ciprofloxacin 250 mg p.o. daily on 09/07, however she reports that she has not been taking it over the past week Treatment not indicated given patient is asymptomatic (9) (HFpEF) heart failure with preserved ejection fraction: Plan: Continue Lasix Plan Disposition: Admit to PCU telemetry Full code T2DM, dialysis renal diet VTE PPx: SCDs, heparin 5000u SQ q12h History of Present Illness Chief Complaint: Back pain Primary Care Provider: Pat Alejandre MD Pauline is a 73-year-old female with PMH of breast cancer metastatic to the lumbar spine, ESRD on HD, HFpEF, Mobitz type I second-degree AV block, dyslipidemia, T2DM, HTN, GERD, and MCKENZIE. She presented for intractable back pain x 2 weeks with acute worsening over the past couple days. She reports the pain is 10/10 at time of admission; acutely exacerbated while lying supine per CT scan. She is unable to lie supine. The pain is constant, positional. It radiates down to her thighs B/L, with it worse being on the right side. She has been taking tramadol 50 mg p.o. 12 tabs daily with minimal relief. She has not been eating much recently; loss of appetite. She sleeps in a recliner at night. She reports that she did not take her morning medications today; this includes not taking her long-acting insulin. Patient normally receives dialysis Tuesday for her ESRD, however she reports she has not been to her last 3 sessions due to inability to walk. 2 episodes of vomiting due to back pain, with 1 reportedly being in the ED after taking morphine. Patient reports she has a history of not responding well to morphine. She lives with her niece (Marely) who is present at the bedside and provides additional history. Patient's vitals are stable at time of admission. ED course: Morphine 4 mg x 2 Lidocaine 5% patch Acetaminophen 1000 mg IV ROS: Patient endorses intractable back pain, loss of appetite, nausea, vomiting x2 (on 09/11 and 09/13; which patient believes is secondary to pain), numbness/tingling in the groin region and both thighs. Patient denies fever, chills, sweating, GRAF, dizziness, lightheadedness, chest pain, SOB, pleuritic CP, abdominal pain, urinary incontinence, burning with urination, or dysuria. Spoke on the phone with patient's (Adele) and provided updates; confirmed code status and medications. Allergies Allergy/AdvReac Type Severity Reaction Status Date / Time amoxicillin Allergy Severe LIPS Verified 06/28/23 13:29 SWELLED, "RED ALL OVER" doxycycline Allergy Severe LIPS Verified 06/28/23 13:29 SWELLED, "RED ALL OVER". cephalexin [From Keflex] Allergy Intermediate skin Verified 06/28/23 13:29 starts to peel off sulfamethoxazole Allergy Unknown Unknown Verified 06/28/23 13:29 [From Bactrim] trimethoprim [From Bactrim] Allergy Unknown Unknown Verified 06/28/23 13:29 atorvastatin AdvReac Intermediate Myalgia Verified 06/28/23 13:29 Home Medications Medication Instructions Recorded Confirmed Type omega-3 fatty acids 1,000 mg 2,000 mg (2 x 1,000 mg) PO BID 07/19/22 09/13/23 Rx capsule #360 caps allopurinol 100 mg tablet 50 mg (1/2 x 100 mg) PO DAILY #45 06/28/23 09/13/23 Rx tabs furosemide 40 mg tablet 40 mg PO BID #180 tabs 06/28/23 09/13/23 Rx insulin aspart U-100 100 unit/mL See Rx Instructions subcut 06/28/23 09/13/23 Rx (3 mL) subcutaneous pen (Novolog DIRECTED #135 mL FlexPen U-100 Insulin aspart) lidocaine 5 % topical patch 1 patch topical DAILY #30 ea 06/28/23 09/13/23 Rx metoprolol succinate 25 mg 25 mg PO DAILY #90 tabs 06/28/23 09/13/23 Rx tablet,extended release 24 hr pen needle, diabetic 32 gauge x #600 ea 06/28/23 06/28/23 Rx 5/32" (BD Sheila 2nd Gen Pen Needle) tramadol 50 mg tablet 50 mg PO Q6H PRN Pain #30 tabs 06/28/23 09/13/23 Rx venlafaxine 75 mg capsule,extended 75 mg PO DAILY #90 caps 06/28/23 09/13/23 Rx release 24 hr prednisone 10 mg tablet 10 mg PO DAILY #30 tabs 09/06/23 09/13/23 Rx insulin glargine 100 unit/mL (3 10 unit subcut BID 09/13/23 09/13/23 History mL) subcutaneous pen (Lantus Solostar U-100 Insulin) Past Med/Surg History Medical History CKD (chronic kidney disease) stage V requiring chronic dialysis Elevated troponin Anemia Iron deficiency anemia (HFpEF) heart failure with preserved ejection fraction Mobitz type 1 second degree AV block Breast cancer diagnosed 2020 Statin myopathy Hyperuricemia Crystal arthropathy Candidal intertrigo Chronic stasis dermatitis Dyslipidemia Seborrheic dermatitis Type 2 diabetes mellitus HTN (hypertension) GERD (gastroesophageal reflux disease) MCKENZIE (nonalcoholic steatohepatitis) Surgical History History of tonsillectomy and adenoidectomy Hx of cholecystectomy History of appendectomy Humerus fracture surgical repair Family History Father Depression Diabetes Mother Hypertension Kidney stones Gallbladder disease Denies family history of Ovarian cancer Prostate cancer Myocardial infarction Breast cancer Colorectal cancer Social History Smoking Status: Unknown if ever smoked Second Hand Exposure: No; Do You Dip or Chew Tobacco: No; Hx Alcohol Use: No Hx Substance Use: No Preferred Language: Slovak Communication Ability: Effective Visual Impairment: Limited Hearing Ability: Normal Technical Staff Assistant Required: No Beliefs That Will Affect Care: None marital status: Current Living Situation: Spouse 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 Feels Safe at Home: Yes Safety Concerns: Feels Safe At This Time Childhood Exposure to Second-Hand Smoke: No Diet: regular Dental Care, Regularly: Yes Physical Activity Frequency: Does not Exercise Seatbelt Use: never Sunscreen Use: No Assistive Devices: Glasses, Walker and Wheelchair Review of Systems Review of Systems: See HPI above Physical Exam Physical Exam: General: Patient is in acute physical distress due to her back pain; gasping for breath; non-toxic appearing; cooperative HEENT: normocephalic, atraumatic; no scleral icterus; moist mucus membrane; vision and hearing grossly intact Neck: supple; no lymphadenopathy; trachea midline Skin: warm, dry without signs of tenting; no cyanosis; no rashes, bruising, lesions, or erythema noted CV: chest wall NTP; RRR; S1/S2 normal; no murmurs/rubs/gallops; pulses intact and symmetric at radial, DP, and PT Lungs: no acute respiratory distress; symmetrical chest wall expansion; clear breath sounds across all lung solis w/o adventitious sounds; no wheezing ABD: Soft, NTP; BS present; no rebound/guarding; mild distention secondary to body; no rashes or bruising noted on abdomen Back: Lower back TTP, extending around the flanks B/L; upper back/neck NTP MSK: no tics or fasciculations; nonpitting edema in the LEs B/L, with LLE slightly larger than right (patient attributes this to radha in her LLE) - nonerythematous; patient demonstrates ability to wiggle toes B/L Neuro: A&Ox3; normal mood and affect; fluent speech; no focal deficits; sensation grossly intact in the LEs B/L Results & Data Results & Data Vital Signs (Past 12 Hours) Vital Signs Temp Pulse Resp BP Pulse Ox O2 Del Method 09/13/23 14:43 73 09/13/23 14:15 36.8 C 70 18 140/49 L 95 Room Air Laboratory Results Abnormal lab results 09/13/23 09/13/23 Range/Units 15:44 15:49 RBC 3.57 L (4.20-5.40) M/uL Hgb 11.9 L (12.0-16.0) g/dl Hct 36.5 L (37.0-47.0) % MCV 102.2 H (80.0-100.0) fL RDW Std Deviation 55.1 H (36.4-46.3) fL RDW Coeff of Amparo 14.6 H (11.5-14.5) % Neut # (Auto) 7.10 H (1.40-6.50) K/uL Lymph # (Auto) 0.71 L (1.20-3.40) K/uL Sodium 135 L (136-145) mmol/L Chloride 96 L (98-107) mmol/L Anion Gap 13 H (3-11) BUN 52 H (6-23) mg/dl Creatinine 4.51 H* (0.6-1.2) mg/dl Glucose 125 H (70-99(Fasting)) mg/dl Calcium 12.9 H* (8.6-10.3) mg/dl Alkaline Phosphatase 129 H (34-104) U/L Globulin 4.3 H (2.5-4.0) gm/dl Albumin/Globulin Ratio 0.8 L (0.9-2) Urine Appearance Cloudy A (Clear) Urine Protein 2+ H (Negative) Urine Blood 1+ H (Negative) Ur Leukocyte Esterase 2+ H (Negative) Urine WBC (Auto) >30 H (0-5) /hpf Urine RBC (Auto) 10-30 H (0-4) /hpf U Epithel Cells (Auto) >30 H (0-5) /lpf Urine Bacteria (Auto) 1+ H (Negative) Calcium Oxalate Crystal Present A (None Prsent) Diagnostic Findings Lumbar Spine CT 09/13/23 15:19 CT lumbar spine wo con CLINICAL HISTORY: Back Pain TECHNIQUE: Multidetector row helical CT of the lumbar spine was performed without administration of intravenous contrast. Coronal and sagittal ref ormations were obtained. Automated dose lowering techniques and/or adjustment according to patient size were utilized for this exam. CT DOSE: 1131.19 mGy.cm Comparison: Comparison is made to CT lumbar spine 05/22/2022 FINDINGS: For counting purposes, the last complete intervertebral disc space is considered L5-S1. Acute fractures are seen in the vertebral body of L1 extending to the posterior aspect of the vertebral body. The L1 vertebral body is notably radiolucent. There is retropulsion of approximately 4 mm. The posterior elements are not definitely affected. There is a fracture of the L1 transverse process. There is an acute fracture of the superior endplate of L2 without involvement of the posterior aspect of the vertebral body with the posterior elements. Multilevel degenerative changes are seen. Atherosclerotic changes are seen in the aorta. Redemonstration of osteoblastic lesion of L4. IMPRESSION: 1. There is a fracture of the L1 vertebral body involving the anterior and posterior aspects of the vertebral body but without involvement of the posterior elements, with notable radiolucency concerning for lytic disease resulting in a pathologic fracture. 4 mm retropulsion is seen. 2. Left transverse process fracture of L1. 3. Fracture of the superior endplate of L2. ACT 112: Negative or not required by law. Electronically signed by: Zack Otoole M.D. 09/13/2023 4:19 PM Chest X-Ray 09/13/23 15:20 XR chest 1V portable CLINICAL HISTORY: missed dialysis TECHNIQUE: Single frontal radiograph of the chest was obtained. Comparison: Comparison is made to chest radiograph 12/18/2022 FINDINGS: Right dual lumen catheter is seen. Right humeral orthopedic hardware is unchanged. Calcified aortic knob is seen. The lungs are clear. No evidence of pleural effusion or pneumothorax. IMPRESSION: No acute chest disease, in particular no significant pulmonary edema. ACT 112: Negative or not required by law. Electronically signed by: Zack Otoole M.D. 09/13/2023 3:41 PM Code Status & VTE Plan Code Status Full code VTE Prophylaxis Plan VTE Prophylaxis will be ordered: Yes Supervising Physician Co-Signing Physician Notes I personally saw and examined the patient. I independently reviewed the labs, EKG, imaging, problem list, medication list, past medical history and family history. I verified all barrett points and agree with Duran Weiss PA-C with the following exceptions and/or additions: 73 year old female presents to the ER with intractable lower back pain for the last 2 weeks (although was also complaining of back pain at PCP appointment in June but does not appear to have had the lumbar spine XR at that time). Mainly in center lower back but with some right radicular symptoms in L1 dist ribution. No fever or chills. No bowel/urine incontinence. O/E A&Ox3, in significant pain sitting in recliner (Dilaudid 0.5mg IV stat ordered when seen), HS RRR, no murmurs, in acute distress from back pain, Chest CTAB anteriorly (unable to move enough for posterior examination), Abdo SNT, distended, numbness on anterior thigh, unable to move legs due to pain and feels better in recliner than lying flat A/P Intractable lower back pain - concern for metastatic spread with L1 compression fracture. Ideally she would have an MRI L-spine w/wo IV contrast with her retropulsion although it was difficult to even get her through a CT scan with her pain. Her symptoms appear more radicular and from the compression than spinal stenosis however. Will consult ortho spine and radiation oncology to consider biopsy with kyphoplasty vs radiation. If pain better controlled consider MRI (defer to nephrology regarding contrast given very low but potential risk of nephrogenic systemic fibrosis dialysis patients). Hypercalcemia - longstanding. previously put down to granulomatous disease which makes sense since it was steroid responsive although I am not clear how the diagnosis of granulomatous disease was made or whether she was ever suspected to have lymphoma (PCP note mentions no definitive disease was ever found). PTHrP has always been normal as of October 2022. Suspect hypercalcemia of malignancy at this point is also at least contributing and will consult oncology to help with management of this complex patient. Previously did not respond to Prolia. She is due to go up to 10mg on her prednisone which I suspect will help therefore this has been started. ESRD on dialysis - consult nephrology for fluid management. She urinates and therefore surprisingly has no indication for emergent dialysis despite missing 3 treatments. PA discussed with Dr Marquez regarding hypercalcemia in addition and no emergent treatment recommended overnight and he will review in the morning. PG Care Time/CCT Total # of Minutes Spent Total Time Spent with Patient: Total time spent is greater than 50% in coordination of care (as documented) at patient's floor/unit and/or counseling patient: C[place] [address] INT INP/OBS CARE 3/75MIN Patient Type Established Medical Decision Making High Complexity Diagnoses Intractable back pain M54.9 Breast cancer C50.912 Breast location: unspecified site of breast Estrogen receptor status: unspecified Laterality: left Patient sex: female Hypercalcemia E83.52 ESRD (end stage renal disease) N18.6 Type 2 diabetes mellitus E11.9 HTN (hypertension) I10 MCKENZIE (nonalcoholic steatohepatitis) K75.81 Asymptomatic bacteriuria R82.71 (HFpEF) heart failure with preserved ejection fraction I50.30 (2) Breast cancer Breast location: unspecified site of breast Estrogen receptor status: unspecified Laterality: left Patient sex: female Qualified Code(s): C50.912 - Malignant neoplasm of unspecified site of left female breast
[2023-09-13] MEDS ORDERED: traMADol HCL 50 MG TABLET PO STA (17:46)
[2023-09-13 18:48] LABS: Magnesium 2.2 mg/dl (1.7-2.4)
[2023-09-13 18:56] LABS: Phosphorus 4.4 mg/dl (2.5-4.9)
[2023-09-13] MEDS ORDERED: ACETAMINOPHEN 1,000 MG/100 ML VIAL IV PRN (19:46)
[2023-09-13] MEDS ORDERED: GLUCAGON FOR INJ 1 MG VIAL SQ PRN (19:46)
[2023-09-13] MEDS ORDERED: GLUCOSE 10 TAB/TUBE PO PRN (19:46)
[2023-09-13] MEDS ORDERED: DEXTROSE 50% 50 ML SYRINGE IV PRN (19:46)
[2023-09-13] MEDS ORDERED: GLUCOSE 40% GEL 15 GM TUBE PO PRN (19:46)
[2023-09-13] MEDS ORDERED: PHARMACY GLYCEMIC MGMT CONSULT PRN (19:46)
[2023-09-13] MEDS ORDERED: HYDROmorphone INJ 0.5 MG/0.5 ML SYR IV PRN (19:46)
[2023-09-13] MEDS ORDERED: CARBOHYDRATES FOR HYPOGLYCEMIA PO PRN (19:46)
[2023-09-13] MEDS ORDERED: predniSONE 10 MG TABLET PO STA (19:51)
[2023-09-13] MEDS: HYDROmorphone INJ 0.5 MG/0.5 ML SYR IV PRN (19:59)
[2023-09-13] MEDS ORDERED: ACETAMINOPHEN 325 MG TAB PO PRN (20:07)
[2023-09-13] MEDS: INSULIN ASPART PER UNIT CHARGE SC SCH (20:12)
[2023-09-13] MEDS: LANTUS PER UNIT CHARGE SQ SCH (20:18)
[2023-09-13] MEDS ORDERED: HYDROmorphone INJ 0.5 MG/0.5 ML SYR IV STA (21:12)
[2023-09-13] MEDS ORDERED: POLYETHYLENE (MIRALAX) 17 GM PACK PO PRN (21:53)
[2023-09-13] MEDS: HEPARIN SOD 5,000 UNIT/0.5 ML VIAL SQ SCH (23:33)
[2023-09-14 06:29] LABS: Basophils # (auto) 0.02 K/uL (0.00-0.20); Basophils % (auto) 0.3 %; Eosinophils # (auto) 0.22 K/uL (0.00-0.50); Hematocrit (blood only) 33.6 % (37.0-47.0); Hemoglobin 10.7 g/dl (12.0-16.0); Immature Granulocytes # (auto) 0.04 K/uL (0.01-0.20); Immature Granulocytes % (auto) 0.5 %; Lymphocytes # (auto) 0.82 K/uL (1.20-3.40); Lymphocytes % (auto) 11.2 %; Mean Corpuscular Hemoglobin 33.3 pg (25.0-34.0); Mean Corpuscular Hgb Conc 31.8 g/dL (32.0-36.0); Mean Corpuscular Volume 104.7 fL (80.0-100.0); Mean Platelet Volume 10.2 fL (9.4-12.4); Monocytes # (auto) 0.54 K/uL (0.11-0.59); Monocytes % (auto) 7.4 %; Neutrophils % (auto) 77.6 %; Nucleated RBC # (auto) 0.02 K/uL (0.00-0.12); Nucleated RBC % (auto) 0.3 %; Platelet Count 208 K/uL (130-400); RDW Coefficient of Variation 14.6 % (11.5-14.5); RDW Standard Deviation 56.4 fL (36.4-46.3); Red Blood Count 3.21 M/uL (4.20-5.40); White Blood Count 7.34 K/ul (4.8-10.8)
[2023-09-14 06:49] LABS: INR 1.1 (0.9-1.1); Prothrombin Time 12.3 Seconds (9.0-12.0)
[2023-09-14 06:51] LABS: BUN Creatinine Ratio 11.7 (10-20); Creatinine Clr Calc Pharmacy 11.6 ml/min; Est GFR (African American) 10.3 ml/min; Est GFR (Non-African American) 8.9 ml/min; Magnesium 2.4 mg/dl (1.7-2.4); Potassium 3.3 mmol/L (3.5-5.1)
[2023-09-14] MEDS: allopurinoL 100 MG TAB PO SCH (08:11)
[2023-09-14] MEDS: HEPARIN SOD 5,000 UNIT/0.5 ML VIAL SQ SCH ×3 (08:12→20:37)
[2023-09-14] MEDS: LIDOCAINE 5% 1 PATCH TD SCH (08:12)
[2023-09-14] MEDS: FUROSEMIDE 40 MG TAB PO SCH ×2 (08:12→17:41)
[2023-09-14] MEDS: VENLAFAXINE HCL XR 75 MG CAPXR PO SCH (08:13)
[2023-09-14] MEDS: METOPROLOL SUCC 25MG EXT REL TAB PO SCH (08:13)
[2023-09-14] MEDS: predniSONE 10 MG TABLET PO SCH (08:13)
[2023-09-14] MEDS: HYDROmorphone INJ 0.5 MG/0.5 ML SYR IV PRN ×2 (08:16→17:42)
--- NOTE | 2023-09-14 08:54 | Consultation ---
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 She has known metastatic breast CA. Dr. Adame is unavailable today. He has not reviewed imaging. I have discussed options with her including nonsurgical versus surgical. Surgery would be in the form of kyphoplasty of L1 and L2. She would like some time to consider it and review it with her felt cutter. In the meantime I will order a TLSO brace to be worn with any type of ambulation and standing. Continue with pain control. Will touch base tomorrow and see if she is made a decision. History of Present Illness Reason for Consultation: Pathologic lumbar fractures Attending Physician: Tio Hameed DO History of Present Illness Is a pleasant 73-year-old female who presented to the emergency room yesterday due to worsening back pain. She states her pain has been pretty severe for the past 2 weeks. No specific accident or fall. She has known metastatic breast CA. Lying down is provocative of her symptoms. Also has some left anterior thigh pain which she has had for several weeks. At home she has a felt cutter and typically ambulates with a walker or cane around the home. Denies bowel or bladder dysfunction. Allergies Allergy/AdvReac Type Severity Reaction Status Date / Time amoxicillin Allergy Severe LIPS Verified 06/28/23 13:29 SWELLED, "RED ALL OVER" doxycycline Allergy Severe LIPS Verified 06/28/23 13:29 SWELLED, "RED ALL OVER". cephalexin [From Keflex] Allergy Intermediate skin Verified 06/28/23 13:29 starts to peel off sulfamethoxazole Allergy Unknown Unknown Verified 06/28/23 13:29 [From Bactrim] trimethoprim [From Bactrim] Allergy Unknown Unknown Verified 06/28/23 13:29 atorvastatin AdvReac Intermediate Myalgia Verified 06/28/23 13:29 Home Medications Medication Instructions Recorded Confirmed Type omega-3 fatty acids 1,000 mg 2,000 mg (2 x 1,000 mg) PO BID 07/19/22 09/13/23 Rx capsule #360 caps allopurinol 100 mg tablet 50 mg (1/2 x 100 mg) PO DAILY #45 06/28/23 09/13/23 Rx tabs furosemide 40 mg tablet 40 mg PO BID #180 tabs 06/28/23 09/13/23 Rx insulin aspart U-100 100 unit/mL See Rx Instructions subcut 06/28/23 09/13/23 Rx (3 mL) subcutaneous pen (Novolog DIRECTED #135 mL FlexPen U-100 Insulin aspart) lidocaine 5 % topical patch 1 patch topical DAILY #30 ea 06/28/23 09/13/23 Rx metoprolol succinate 25 mg 25 mg PO DAILY #90 tabs 06/28/23 09/13/23 Rx tablet,extended release 24 hr pen needle, diabetic 32 gauge x #600 ea 06/28/23 06/28/23 Rx 32" (BD Sheila 2nd Gen Pen Needle) tramadol 50 mg tablet 50 mg PO Q6H PRN Pain #30 tabs 06/28/23 09/13/23 Rx venlafaxine 75 mg capsule,extended 75 mg PO DAILY #90 caps 06/28/23 09/13/23 Rx release 24 hr prednisone 10 mg tablet 10 mg PO DAILY #30 tabs 09/06/23 09/13/23 Rx insulin glargine 100 unit/mL (3 10 unit subcut BID 09/13/23 09/13/23 History mL) subcutaneous pen (Lantus Solostar U-100 Insulin) Patient History Medical History CKD (chronic kidney disease) stage V requiring chronic dialysis Elevated troponin Anemia Iron deficiency anemia (HFpEF) heart failure with preserved ejection fraction Mobitz type 1 second degree AV block Breast cancer diagnosed 2020 Statin myopathy Hyperuricemia Crystal arthropathy Candidal intertrigo Chronic stasis dermatitis Dyslipidemia Seborrheic dermatitis Type 2 diabetes mellitus HTN (hypertension) GERD (gastroesophageal reflux disease) MCKENZIE (nonalcoholic steatohepatitis) Surgical History History of tonsillectomy and adenoidectomy Hx of cholecystectomy History of appendectomy Humerus fracture surgical repair Family History Father Depression Diabetes Mother Hypertension Kidney stones Gallbladder disease Denies family history of Ovarian cancer Prostate cancer Myocardial infarction Breast cancer Colorectal cancer Social History Smoking Status: Unknown if ever smoked Second Hand Exposure: No; Do You Dip or Chew Tobacco: No; Hx Alcohol Use: No Hx Substance Use: No Preferred Language: Somali Communication Ability: Effective Visual Impairment: Limited Hearing Ability: Normal Loom Doffer Required: No Beliefs That Will Affect Care: None marital status: Current Living Situation: Spouse 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 Strength is intact bilateral lower extremities Constitutional: WD/WN, vitals as above Eyes: normal visual solis by confrontation ENMT: external ear and nose normal, oropharynx normal Neck: normal visual inspection Respiratory: normal respiratory effort Cardiovascular: Extremities: normal capillary refill Gastrointestinal (Abdomen): Inspection/Auscultation: abdomen normal to inspection Musculoskeletal: Spine: + limited thoraco-lumbar ROM and + pain with thoraco- lumbar ROM Extremities: strength 5/5 throughout Skin: no rashes, warm and dry Neurologic: normal touch/pain/proprioception and moves all extremities Psychiatric: A+Ox3, euthymic affect Eye Contact: good eye contact Results & Data Vital Signs (Past 12 Hours) Vital Signs Temp Pulse Pulse Resp BP BP Pulse Ox 09/14/23 07:18 36.4 C L 63 18 183/72 H 99 09/14/23 04:32 36.1 C L 68 16 165/74 H 98 09/13/23 23:31 58 L 09/13/23 23:19 36.2 C L 64 18 141/65 H 99 09/13/23 21:56 36.4 C 79 18 143/56 H 93 O2 Del Method O2 Flow Rate 09/14/23 07:18 Room Air 09/14/23 04:32 Room Air 09/13/23 23:31 09/13/23 23:19 Nasal Cannula 2 09/13/23 21:56 Nasal Cannula Diagnostic Findings [place], [place] [phone] CT Scan Report Patient: PAULINE CEBALLOS Admit Date: 09/13/23 MR#: [id number] Address[address]: [address] Acct ID:[id number] Address2: Date: 1950 [address] [facility] Zip: [place] [address] Age: 73 Location: ED Sex: F Room/Bed: Att Phy: Diagnosis: BACK PAIN Joanna Phy: Pat Alejandre MD Service Date: 09/13/23 [facility] Phy: Interpreting Phy: Zack Otoole MDAdmit Phy: Ordering Phy: Alicia Bobo PA-C cc: ~ CT lumbar spine wo con CLINICAL HISTORY: Back Pain TECHNIQUE: Multidetector row helical CT of the lumbar spine was performed without administration of intravenous contrast. Coronal and sagittal reformations were obtained. Automated dose lowering techniques and/or adjustment according to patient size were utilized for this exam. CT DOSE: 1131.19 mGy.cm Comparison: Comparison is made to CT lumbar spine 05/22/2022 FINDINGS: For counting purposes, the last complete intervertebral disc space is considered L5-S1. Acute fractures are seen in the vertebral body of L1 extending to the posterior aspect of the vertebral body. The L1 vertebral body is notably radiolucent. There is retropulsion of approximately 4 mm. The posterior elements are not definitely affected. There is a fracture of the L1 transverse process. There is an acute fracture of the superior endplate of L2 without involvement of the posterior aspect of the vertebral body with the posterior elements. Multilevel degenerative changes are seen. Atherosclerotic changes are seen in the aorta. Redemonstration of osteoblastic lesion of L4. IMPRESSION: 1. There is a fracture of the L1 vertebral body involving the anterior and posterior aspects of the vertebral body but without involvement of the posterior elements, with notable radiolucency concerning for lytic disease resulting in a pathologic fracture. 4 mm retropulsion is seen. 2. Left transverse process fracture of L1. 3. Fracture of the superior endplate of L2. ACT 112: Negative or not required by law. Electronically signed by: Zack Otoole M.D. 09/13/2023 4:19 PM Dictated: 09/13/23 1610 Transcribed: 09/13/23 161
[2023-09-14] MEDS: INSULIN ASPART PER UNIT CHARGE SC SCH ×4 (08:59→20:28)
[2023-09-14] MEDS: LANTUS PER UNIT CHARGE SQ SCH ×2 (08:59→20:33)
--- NOTE | 2023-09-14 09:56 | Radiation OncologyConsultation ---
Date of Consultation September 14, 2023 Assessment & Plan (1) 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: Assessment: 73-year-old female who self detected a left breast mass in 2020. Biopsy at that time confirmed an infiltrating ductal carcinoma ER/PA positive HER2/becky negative grade 3. Patient has been treated through the [facility] in [facility]. She was found to have evidence of metastatic disease in April of last year but was asymptomatic. Recently she has noted acute onset of low back pain that she rates as a level of 10 out of 10 which was not helped by pain medication at the time. Treatment Options: 1. Continued systemic therapy as recommended by medical oncology. 2. Continue pain medication with consideration of referral to pain clinic as appropriate. 3. Consideration of palliative radiation to the L1 and L2 vertebral body. 4. Kyphoplasty to L1 and L2 per Dr. Adame. Recommendations: Patient has difficulty lying flat with significant exacerbation of her pain. I will speak to the hospitalist and see if she can be premedicated prior to a CT simulation and prior to each planned of treatment. Plan: 1. The patient will be premedicated per the hospitalist Dr. Garcia prior to her being brought down for simulation. 2. A consent form was obtained from the patient after discussion of potential risks and side effects. I also spoke with the patient's Adele also gave her approval for a course of palliative radiation. 3. Arrange to bring the patient down this morning for CT simulation. 4. Design a treatment plan to encompass L1 and L2 and would like to start either at the end of the day today or tomorrow. 5. We would plan to treat her with 5 fractions of 400 cGy per fraction for a palliative dose of 20 Gy. 6. Will discuss with the patient and her the option of kyphoplasty as presented by Dr. Adame's PA. This would obviate the immediate need for simulation and treatment with postprocedure treatment considered. Rationale/Explanation of Treatment: The patient has a history of left breast cancer infiltrating ductal grade 3 ER/PA positive HER2/becky negative who has been on systemic therapy and now presents with worsening back pain and evidence of metastatic bony disease. Plan to recommend a course of palliative radiation to encompass the L1-L2 vertebral body. I would recommend treatment of 5 fractions at 400 cGy per fraction. We will need to have the patient premedicated prior to bring her down for the CT simulation and each of the planned 5 treatments. We will attempt to treat the patient as an inpatient but if discharged we could complete the treatment as an outpatient if necessary. The patient was seen by Dr. Adame's PA discussed with the patient the option of kyphoplasty. I spoke with her and readdress the issue with the patient and her . I reviewed with them the potential benefits of kyphoplasty giving a immediate response to pain whereas the radiation could take a week or more. I did indicate that we would discuss the role of post procedure irradiation to these vertebral bodies. Treatment could be delivered without the patient being in pain lying flat on the table and making the outpatient travel process easier to tolerate. Therefore after discussing it with the patient and her they decided that they would like to proceed with kyphoplasty. We will contact Dr. Adame's PA and arrange for her to proceed with that treatment as she discussed with the patient. The patient and her by phone had multiple questions which were answered to their full satisfaction. Thank you for allowing us to participate in the care of this patient. This chart was completed in part utilizing [employer] Speech Voice Recognition software. Grammatical errors, random word insertions, pronoun errors and incomplete sentences are occasional consequence of this system due to software limitations, ambient noise and hardware issues. Any formal questions or concerns about the content, text or information contained within the body of this dictation should be directly addressed to the provider for clarification. Thom Martin MD Department of Radiation Oncology [facility] History of Present Illness Reason for Consultation: Recent onset of acute low back pain Attending Physician: Tio Hameed DO History of Present Illness Ms. Beyer is a 73-year-old female with a history of primary left breast cancer who recently developed acute onset of low back pain approximately 2 weeks ago. 06/18/2021. Patient undergoes bilateral digital diagnostic mammogram and targeted bilateral ultrasound. This identified a new irregular spiculated mass measuring 4.4 x 4.1 x 3.4 cm has a palpable lesion in the left upper inner quadrant. There is a partially visualized equal density asymmetry measuring 10 x 6 mm within the right lateral posterior breast which could represent fibroglandular tissue and targeted ultrasound was performed. Targeted ultrasound of the palpable lump as pointed out by the patient in the left breast at the 11 o'clock position 8 cm from the nipple confirmed an irregular hypoechoic ill-defined mass measuring 4.1 x 3.8 cm on ultrasound. Targeted ultrasound of the left axilla shows the majority of the left axillary lymph nodes morphologically normal. One 2.5 cm lymph node in the left axilla demonstrates a normal fatty hilum and is equivocal for korina metastasis. An attempted ultrasound-guided FNA was recommended but could be difficult due to the location of the lymph node. 07/07/2021. Patient found to have a left breast mass and underwent a ultrasound-guided core biopsy of the breast mass at 11 o'clock position. This was positive for invasive ductal carcinoma grade 3, ER positive PA positive and HER2/becky negative. Biopsy was performed at [facility] in [place]. 05/22/2022. CT of the lumbar spine without IV contrast was performed following complaint of low back pain. Osteoblastic lesions are noted in the bodies of L1 and L4. There was advanced disc space narrowing at L3-L4, L4-L5 and L5-S1 with associated endplate sclerosis. There was no CT evidence of high-grade central canal stenosis. 11/05/2022. Patient undergoes CT of the abdomen and pelvis for generalized abdominal pain. This again showed a 4 cm left breast mass with few scattered osteoblastic lesions within the thoracic spine, lumbar spine and left femur that were highly suspicious for osteoblastic metastatic disease. 09/13/2023. Patient is admitted for acute back pain. Lumbar imaging showed moderate loss of height of L1 which is new compared to the CT scan from 11/05/2022. This could reflect a pathologic fracture given the sclerotic lesion on that exam. A CT of the lumbar spine was also performed. No acute fractures in the vertebral body of L1 extending to the posterior aspect of the vertebral body. There is retropulsion of approximately 4 mm. There is a fracture of the L1 transverse process. Fracture of the superior endplate of L2 without involvement of the posterior aspect of the vertebral body. Multilevel degenerative changes are appreciated. Again noted is an osteoblastic lesion of L4. Patient is under the care of medical oncology from the [facility] in [place]. She was scheduled for a Precedex shot on 09/15 treatment of hypercalcemia. Patient has additional multiple medical comorbidities. Her main complaint is acute onset of back pain starting approximately 2 weeks ago. It has been getting worse prompting her admission to the hospital. She is on pain medication and is lying fairly comfortably in the bed but has significant difficulty lying flat. Recent CT scan from yesterday because her significant pain even after a short interval. She reports the pain is a 10 out of 10 at the time of admission. She was on tramadol 50 mg p.o. 1 to 2 tablets daily but without much relief. She was seen in the ED prior to admission and was given 4 mg of morphine x 2 and a lidocaine patch along with the 1000 mg IV of acetaminophen. Allergies Allergy/AdvReac Type Severity Reaction Status Date / Time amoxicillin Allergy Severe LIPS Verified 06/28/23 13:29 SWELLED, "RED ALL OVER" doxycycline Allergy Severe LIPS Verified 06/28/23 13:29 SWELLED, "RED ALL OVER". cephalexin [From Keflex] Allergy Intermediate skin Verified 06/28/23 13:29 starts to peel off sulfamethoxazole Allergy Unknown Unknown Verified 06/28/23 13:29 [From Bactrim] trimethoprim [From Bactrim] Allergy Unknown Unknown Verified 06/28/23 13:29 atorvastatin AdvReac Intermediate Myalgia Verified 06/28/23 13:29 Home Medications Medication Instructions Recorded Confirmed Type omega-3 fatty acids 1,000 mg 2,000 mg (2 x 1,000 mg) PO BID 07/19/22 09/13/23 Rx capsule #360 caps allopurinol 100 mg tablet 50 mg (1/2 x 100 mg) PO DAILY #45 06/28/23 09/13/23 Rx tabs furosemide 40 mg tablet 40 mg PO BID #180 tabs 06/28/23 09/13/23 Rx insulin aspart U-100 100 unit/mL See Rx Instructions subcut 06/28/23 09/13/23 Rx (3 mL) subcutaneous pen (Novolog DIRECTED #135 mL FlexPen U-100 Insulin aspart) lidocaine 5 % topical patch 1 patch topical DAILY #30 ea 06/28/23 09/13/23 Rx metoprolol succinate 25 mg 25 mg PO DAILY #90 tabs 06/28/23 09/13/23 Rx tablet,extended release 24 hr pen needle, diabetic 32 gauge x #600 ea 06/28/23 06/28/23 Rx 5/32" (BD Sheila 2nd Gen Pen Needle) tramadol 50 mg tablet 50 mg PO Q6H PRN Pain #30 tabs 06/28/23 09/13/23 Rx venlafaxine 75 mg capsule,extended 75 mg PO DAILY #90 caps 06/28/23 09/13/23 Rx release 24 hr prednisone 10 mg tablet 10 mg PO DAILY #30 tabs 09/06/23 09/13/23 Rx insulin glargine 100 unit/mL (3 10 unit subcut BID 09/13/23 09/13/23 History mL) subcutaneous pen (Lantus Solostar U-100 Insulin) Patient History Medical History CKD (chronic kidney disease) stage V requiring chronic dialysis Elevated troponin Anemia Iron deficiency anemia (HFpEF) heart failure with preserved ejection fraction Mobitz type 1 second degree AV block Breast cancer diagnosed 2020 Statin myopathy Hyperuricemia Crystal arthropathy Candidal intertrigo Chronic stasis dermatitis Dyslipidemia Seborrheic dermatitis Type 2 diabetes mellitus HTN (hypertension) GERD (gastroesophageal reflux disease) MCKENZIE (nonalcoholic steatohepatitis) Surgical History History of tonsillectomy and adenoidectomy Hx of cholecystectomy History of appendectomy Humerus fracture surgical repair Family History Father Depression Diabetes Mother Hypertension Kidney stones Gallbladder disease Denies family history of Ovarian cancer Prostate cancer Myocardial infarction Breast cancer Colorectal cancer Social History Smoking Status: Unknown if ever smoked Second Hand Exposure: No; Do You Dip or Chew Tobacco: No; Hx Alcohol Use: No Hx Substance Use: No Preferred Language: Kazakh Communication Ability: Effective Visual Impairment: Limited Hearing Ability: Normal Grade Recorder Required: No Beliefs That Will Affect Care: None marital status: Current Living Situation: Spouse 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 Pain is increased if she is lying flat or with motion. Eyes: PERRL, conjunctivae normal, anicteric sclerae Neck: trachea midline, no thyromegaly There is no palpable cervical or supraclavicular adenopathy appreciated. Respiratory: normal respiratory effort, lungs clear to auscultation Cardiovascular: RRR, no murmur, no edema Chest (Breasts): Additional Comments: Right breast is without palpable masses or skin changes. The left breast shows an area of induration measuring approximately 3 x 3 cm with overlying skin thickening and pigmentation changes. This palpable lesion is nontender. No definite axillary adenopathy was appreciated. Gastrointestinal (Abdomen): normal bowel sounds, soft, nontender, no hepatosplenomegaly Neurologic: PERRL, EOMI, accommodation nl, no face palsy, no dysarthria Psychiatric: A+Ox3, euthymic affect Results (Rad Onc) Laboratory Results: were reviewed and pertinent findings noted in HPI Pathology Results: were reviewed and pertinent findings noted in HPI Imaging Studies: were reviewed and pertinent findings noted in HPI Time Spent Attending This documentation has been prepared in full by Dr. Martin. I have personally reviewed the services described and have reviewed the documentation to ensure its accuracy. I spent 25 minutes with direct face to face interaction with the patient which included obtaining clinical information, recommending a plan of action and answering questions. I spent 15 minutes reviewing her chart and scans, discussion with her hospitalist and preparation of this document. REGINALD MONTELONGO
--- NOTE | 2023-09-14 10:17 | Pharmacy Report ---
Pharmacy Glycemic Short Note 2 - Date of Service September 14, 2023 - Glycemic Short BSG Results (Last 24 hours): 09/13/23 09/13/23 09/14/23 15:44 19:10 05:51 Glucose 125 H 112 H POC Glucose 134 H 09/14/23 07:54 Glucose POC Glucose 172 H OUTPATIENT ANTIDIABETIC REGIMEN: * Lantus 10 units BID * Novolog CR 2, CF 18 if BSG >200 * HbA1C unreliable due to ESRD ASSESSMENT: * Pauline is a 73 YOF admitted for intractable back pain secondary to metastatic breast cancer to the lumbar spine. Pauline has a history of T2DM. Pharmacy has been consulted for glycemic management while inpatient. She is known to the glycemic service. * Lantus 14 units BID initiated last night as well as Novolog * Fasting BSG slightly elevated this AM, will continue current regimen at this time since she is already ordered 40% more than home basal regimen. Reassess basal insulin tomorrow. Previously she has required 20 to 25 units of Lantus BID with and without steroids. * She is receiving 10mg prednisone daily and has ESRD. Will adjust cautiously and monitor for insulin accumulation. * Previously has required a carbohydrate ratios between 5 to 7. Will tighten carbohydrate ratio to previous requirements. PLAN FOR INPATIENT GLYCEMIC CONTROL: * Hold outpatient oral diabetes medications * Basal insulin * Lantus 14 units SQ BID * Bolus insulin * NovoLog per scale ACHS or Q6hrs while NPO * Goal Range: Low 110 mg/dL - High 140 mg/dL * Correction Factor: 25 mg/dL/unit * Nutritional / Prandial insulin per carb ratio of 1 unit per 7 grams CHO consumed
[2023-09-14] MEDS ORDERED: HYDROmorphone INJ 1 MG/ML SYRINGE IV STA (10:30)
--- NOTE | 2023-09-14 11:09 | Hospitalist Progress Note ---
Date of Service September 14, 2023 Assessment & Plan (1) Intractable back pain: Plan: - Acute worsening of back pain x 2 weeks, in the setting of metastatic breast cancer to the lumbar spine - Lumbar spine CT revealed fracture of L1 concerning for lytic disease resulting in pathologic fracture; also fracture of superior endplate of L2 - Patient's back pain was acutely exacerbated by lying supine during CT - History of poor response to morphine. Will continue tramadol 50 mg p.o. q6h as needed for pain - Lidocaine 5% patch daily - For breakthrough pain: >Acetaminophen 650 mg p.o. q4h as needed for pain 1-3/fever >Dilaudid 0.25 mg IV q4h for pain 4-6 >Dilaudid 0.5 increased to 1 mg IV q3h for pain 7-10 - Miralax powder daily as needed for opioid-induced constipation - Zofran 4 mg IV q4h as needed for nausea - Radiation oncology consulted: To perform palliative radiation x5 therapies starting today Dilaudid increased to 1mg IV Q3H for pain management since she will need to lie down for these therapies Will stay in the hospital until 5 therapies completed - Ortho spine consulted for 4 mm retropulsion seen on lumbar spine CT (2) Breast cancer: Plan: - Dx in 2020; now metastatic to spine - Follows with [facility] - Patient was scheduled to have a Precedex shot at [facility] in [place] on 09/15 for back - Oncology consulted for hypercalcemia malignancy (3) Hypercalcemia: Plan: - Ca 12.9 on arrival - Longstanding hypercalcemia that did not respond to trial of Prolia - Likely secondary to metastatic cancer; not on bisphosphonates given renal function - Patient's hypercalcemia was being managed with her prednisone 5 mg daily; being taken for granulomatous disease, refractory hypercalcemia; recently increased to 10 mg daily - PTH 9.7 (L), vit D 15.1 (L), ionized calcium 1.55 (H), mag 2.4 (N), Phos 6.0 (H) - Continue prednisone 10 mg daily (4) ESRD (end stage renal disease): Plan: - HD on M, and Fr - BUN 52; A&Ox3 - Potassium low at 3.3 - Patient reports that she has missed her last 3 sessions due to inability to walk - Nephrology consulted: HD today for correction of azotemia and calcium (5) Type 2 diabetes mellitus: Plan: - Glucose 125 on arrival - Last A1c at 5.4% on 01/17/2023 - On insulin glargine 10 units BID at home, per POA (Adele) - Will place on Lantus 14u BID while inpatient; on steroids - SSI; target BSG range 110-150mg/dL, CF 25, carb ratio 10 - Adjust regimen as needed (6) HTN (hypertension): Plan: - Continue metoprolol (7) MCKENZIE (nonalcoholic steatohepatitis): Plan: - Chronic; stable; mildly elevated alk phos at 129 - Otherwise LFTs WNL; continue to monitor (8) Asymptomatic bacteriuria: Plan: - In the setting of ESRD - UA positive on arrival - Urine culture ordered, pending Clinically, she denies burning with urination and dysuria; she reports she is currently producing urine - Treatment not indicated given patient is asymptomatic (9) (HFpEF) heart failure with preserved ejection fraction: Plan: - Continue Lasix Plan Disposition: If stable and circumstances don't change, discharge after palliative therapies are completed (x5) Full code T2DM, dialysis renal diet VTE PPx: SCDs, heparin 5000u SQ q12h Admission and Anticipated Discharge Date Admission Date: September 13, 2023 Supervising Physician Co-Signing Physician Notes I personally examined the patient and verified all barrett points of history and exam, discussed case, and agree with decision making with Dr Garcia Seen after dialysis, and after escalation of Dilaudid. Pain relief much better with higher dose of Dilaudid. For kyphoplasty on Tuesday. Vitals noted, in general she is mildly sedated from pain meds but otherwise no distress and definitely no appearance of respiratory depression. Breathing unlabored no accessory muscle use good effort. Skin without rashes pallor or icterus. Neuro without focal deficits. Intractable lower back pain - concern for metastatic spread with L1 compression fracture. Short-term pain control with Dilaudid, kyphoplasty on 09/16. Agree biopsy at time of kyphoplasty would be helpful. Hypercalcemia - Certainly concerning for malignancy related, although she also carries a baseline of granulomatous disease. Follow. Appreciate nephrology and hematology input. ESRD on dialysis - Ongoing HD DVT prophylaxisheparin subcu. Otherwise as above Subjective Pauline is a 73 y/o female with PMHx of breast cancer with mets to lumbar spine who was admitted due to intractable back pain, which she rated a 10/10 in intensity at admission. Imaging revealed fractures in L1 and L2 (likely pathologic). Today she was evaluated at bedside and found to be alone, AAOX3, and in no acute distress. She states her pain is better compared to the time of admission, but still rates it a 9/10. Other than this, she has no complaints. She denies chest pain, SOB, fevers, chills, or any other symptom. Review of Systems Review of Systems: As per HPI. Physical Exam Physical Exam: General: Awake. Alert. Oriented to person, time, and place. Responsive. Afebrile. No acute distress. Chest: left breast firm to palpation with area of skin dimpling and dark discoloration on medial aspect Cardiac: Regular rate and rhythm, no murmurs/rubs/gallops. Respiratory: Clear to auscultation bilaterally a/p, no wheezes/rales/rhonchi. No increased work of breathing. Symmetrical chest rise. No respiratory distress. Abdomen: Soft, nontender, nondistended. Bowel sounds present. Psych: Euthymic affect. Mood and affect congruence. Regular speech rate and content. Results & Data Results & Data Vital Signs (Past 12 Hours) Vital Signs Temp Pulse Pulse Resp BP BP Pulse Ox 09/14/23 07:18 36.4 C L 63 18 183/72 H 99 09/14/23 04:32 36.1 C L 68 16 165/74 H 98 09/13/23 23:31 58 L 09/13/23 23:19 36.2 C L 64 18 141/65 H 99 O2 Del Method O2 Flow Rate 09/14/23 07:18 Room Air 09/14/23 04:32 Room Air 09/13/23 23:31 09/13/23 23:19 Nasal Cannula 2 Resident Activity Tracking Resident Involvement: Resident Care Provided Care Provided: Adult Hospital Medicine (2) Breast cancer Breast location: unspecified site of breast Estrogen receptor status: unspecified Laterality: left Patient sex: female Qualified Code(s): C50.912 - Malignant neoplasm of unspecified site of left female breast
--- NOTE | 2023-09-14 11:42 | Nephrology Consultation ---
Date of Consultation September 14, 2023 Assessment & Plan (1) ESRD (end stage renal disease): * Outpatient HD Rx: M&F [facility] [place] 2.5hr, 2K 2Ca, F-180NR, EDW 99.5 kg * Will provide HD today for correction of azotemia and to lower serum Ca * Monitor PRP (2) Hypercalcemia: * HD today * Consider consultation w/ Oncology due to metastatic breast CA (3) 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: * Patient scheduled for 1st radiation treatment to spine this afternoon (4) Breast cancer: History of Present Illness Reason for Consultation: ESKD-D Attending Physician: Tio Hameed DO History of Present Illness Ms. Beyer is a 73 year old white female who is seen at the request of [facility] Hospitalist Service to provide inpatient HD and assist w/ medical management. Information for the HPI is obtained via direct patient interview and review of the EMR. HPI is summarized as follows: Ms. Beyer has a h/o recurrent hospitalization complicated by JEFFREY. She progressed to ESKD and required initiation of HD 12/16. Ms. Beyer remains nonoliguric and reports that she dialyzes only twice weekly (M&F[facility] the [facility] 2K 2Ca, F-180NR, EDW 99.5 kg). Her medical history is significant for breast cancer w/ metastasis to the lumbar spine, recurrent hypercalcemia, HFpEF, Mobitz type I second-degree AV block, dyslipidemia, AODM, HTN, GERD, and MCKENZIE. Over the last two weeks she has experienced progressively worsening low back pain. She did not attend her last 3 dialysis sessions. Ms. Beyer presented to [facility] last evening evaluation of her back pain. LS spine CT revealed fracture of L1 vertebral body with radiolucency concerning for lytic disease/pathologic fracture. 4mm retropulsion was reported. Ca 12.0, BUN/Cr 53/4.5. Allergies Allergy/AdvReac Type Severity Reaction Status Date / Time amoxicillin Allergy Severe LIPS Verified 06/28/23 13:29 SWELLED, "RED ALL OVER" doxycycline Allergy Severe LIPS Verified 06/28/23 13:29 SWELLED, "RED ALL OVER". cephalexin [From Keflex] Allergy Intermediate skin Verified 06/28/23 13:29 starts to peel off sulfamethoxazole Allergy Unknown Unknown Verified 06/28/23 13:29 [From Bactrim] trimethoprim [From Bactrim] Allergy Unknown Unknown Verified 06/28/23 13:29 atorvastatin AdvReac Intermediate Myalgia Verified 06/28/23 13:29 Home Medications Medication Instructions Recorded Confirmed Type omega-3 fatty acids 1,000 mg 2,000 mg (2 x 1,000 mg) PO BID 07/19/22 09/13/23 Rx capsule #360 caps allopurinol 100 mg tablet 50 mg (1/2 x 100 mg) PO DAILY #45 06/28/23 09/13/23 Rx tabs furosemide 40 mg tablet 40 mg PO BID #180 tabs 06/28/23 09/13/23 Rx insulin aspart U-100 100 unit/mL See Rx Instructions subcut 06/28/23 09/13/23 Rx (3 mL) subcutaneous pen (Novolog DIRECTED #135 mL FlexPen U-100 Insulin aspart) lidocaine 5 % topical patch 1 patch topical DAILY #30 ea 06/28/23 09/13/23 Rx metoprolol succinate 25 mg 25 mg PO DAILY #90 tabs 06/28/23 09/13/23 Rx tablet,extended release 24 hr pen needle, diabetic 32 gauge x #600 ea 06/28/23 06/28/23 Rx 5/32" (BD Sheila 2nd Gen Pen Needle) tramadol 50 mg tablet 50 mg PO Q6H PRN Pain #30 tabs 06/28/23 09/13/23 Rx venlafaxine 75 mg capsule,extended 75 mg PO DAILY #90 caps 06/28/23 09/13/23 Rx release 24 hr prednisone 10 mg tablet 10 mg PO DAILY #30 tabs 09/06/23 09/13/23 Rx insulin glargine 100 unit/mL (3 10 unit subcut BID 09/13/23 09/13/23 History mL) subcutaneous pen (Lantus Solostar U-100 Insulin) Patient History Medical History CKD (chronic kidney disease) stage V requiring chronic dialysis Elevated troponin Anemia Iron deficiency anemia (HFpEF) heart failure with preserved ejection fraction Mobitz type 1 second degree AV block Breast cancer diagnosed 2020 Statin myopathy Hyperuricemia Crystal arthropathy Candidal intertrigo Chronic stasis dermatitis Dyslipidemia Seborrheic dermatitis Type 2 diabetes mellitus HTN (hypertension) GERD (gastroesophageal reflux disease) MCKENZIE (nonalcoholic steatohepatitis) Surgical History History of tonsillectomy and adenoidectomy Hx of cholecystectomy History of appendectomy Humerus fracture surgical repair Family History Father Depression Diabetes Mother Hypertension Kidney stones Gallbladder disease Denies family history of Ovarian cancer Prostate cancer Myocardial infarction Breast cancer Colorectal cancer Social History Smoking Status: Unknown if ever smoked Second Hand Exposure: No; Do You Dip or Chew Tobacco: No; Hx Alcohol Use: No Hx Substance Use: No Preferred Language: Citizen [place] Communication Ability: Effective Visual Impairment: Limited Hearing Ability: Normal Box Strapper Required: No Beliefs That Will Affect Care: None marital status: Current Living Situation: Spouse 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 Feels Safe at Home: Yes Safety Concerns: Feels Safe At This Time Childhood Exposure to Second-Hand Smoke: No Diet: regular Dental Care, Regularly: Yes Physical Activity Frequency: Does not Exercise Seatbelt Use: never Sunscreen Use: No Assistive Devices: Glasses, Walker and Wheelchair Review of Systems Constitutional: no fever Eyes: no problem reported Ear, Nose, Mouth, Throat: no problem reported Respiratory: no cough and no dyspnea Cardiovascular: no chest pain Gastrointestinal: no abdominal pain, no nausea, no vomiting and no diarrhea/loose stools Genitourinary: no dysuria Physical Exam Constitutional: + ill appearing (in distress due to back pain) Eyes: PERRL, conjunctivae normal, anicteric sclerae ENMT: external ear and nose normal, oropharynx normal Neck: trachea midline, no thyromegaly R IJ TCC with clean dry dressing in place Respiratory: normal respiratory effort, lungs clear to auscultation Cardiovascular: RRR, no murmur, no edema Gastrointestinal (Abdomen): normal bowel sounds, soft, nontender, no hepatosplenomegaly Skin: no rashes, warm and dry Neurologic: Speech / Cognition: normal speech and normal cognition Results & Data Vital Signs (Past 12 Hours) Vital Signs Temp Pulse Pulse Resp BP BP Pulse Ox 09/14/23 07:18 36.4 C L 63 18 183/72 H 99 09/14/23 04:32 36.1 C L 68 16 165/74 H 98 09/13/23 23:31 58 L O2 Del Method 09/14/23 07:18 Room Air 09/14/23 04:32 Room Air 09/13/23 23:31 Laboratory Results Laboratory Results WBC 7.34 K/ul (4.8-10.8) 09/14/23 05:51 RBC 3.21 M/uL (4.20-5.40) L 09/14/23 05:51 Hgb 10.7 g/dl (12.0-16.0) L 09/14/23 05:51 Hct 33.6 % (37.0-47.0) L 09/14/23 05:51 MCV 104.7 fL (80.0-100.0) H 09/14/23 05:51 MCH 33.3 pg (25.0-34.0) 09/14/23 05:51 MCHC 31.8 g/dL (32.0-36.0) L 09/14/23 05:51 RDW Std Deviation 56.4 fL (36.4-46.3) H 09/14/23 05:51 RDW Coeff of Amparo 14.6 % (11.5-14.5) H 09/14/23 05:51 Plt Count 208 K/uL (130-400) 09/14/23 05:51 MPV 10.2 fL (9.4-12.4) 09/14/23 05:51 Immature Gran % (Auto) 0.5 % 09/14/23 05:51 Neut % (Auto) 77.6 % 09/14/23 05:51 Lymph % (Auto) 11.2 % 09/14/23 05:51 [place] % (Auto) 7.4 % 09/14/23 05:51 Eos % (Auto) 3.0 % 09/14/23 05:51 Baso % (Auto) 0.3 % 09/14/23 05:51 Neut # (Auto) 5.70 K/uL (1.40-6.50) 09/14/23 05:51 Lymph # (Auto) 0.82 K/uL (1.20-3.40) L 09/14/23 05:51 [place] # (Auto) 0.54 K/uL (0.11-0.59) 09/14/23 05:51 Eos # (Auto) 0.22 K/uL (0.00-0.50) 09/14/23 05:51 Baso # (Auto) 0.02 K/uL (0.00-0.20) 09/14/23 05:51 Immature Gran # (Auto) 0.04 K/uL (0.01-0.20) 09/14/23 05:51 Absolute Nucleated RBC 0.02 K/uL (0.00-0.12) 09/14/23 05:51 Nucleated RBC % (auto) 0.3 % 09/14/23 05:51 PT 12.3 Seconds (9.0-12.0) H 09/14/23 05:51 INR 1.1 (0.9-1.1) 09/14/23 05:51 Sodium 136 mmol/L (136-145) 09/14/23 05:51 Potassium 3.3 mmol/L (3.5-5.1) L 09/14/23 05:51 Chloride 99 mmol/L (98-107) 09/14/23 05:51 Carbon Dioxide 28 mmol/L (21-32) 09/14/23 05:51 Anion Gap 9 (3-11) 09/14/23 05:51 BUN 53 mg/dl (6-23) H 09/14/23 05:51 Creatinine 4.52 mg/dl (0.6-1.2) H* 09/14/23 05:51 Est Cr Clr Drug Dosing 11.6 ml/min 09/14/23 05:51 Est GFR ( Amer) 10.3 ml/min 09/14/23 05:51 Est GFR (Non-Af Amer) 8.9 ml/min 09/14/23 05:51 BUN/Creatinine Ratio 11.7 (10-20) 09/14/23 05:51 Glucose 112 mg/dl (70-99(Fasting)) H 09/14/23 05:51 POC Glucose 172 mg/dl (70-99) H 09/14/23 07:54 Calcium 12.0 mg/dl (8.6-10.3) H 09/14/23 05:51 Ionized Calcium 1.55 mmol/L (1.12-1.32) H 09/13/23 18:47 Phosphorus 6.0 mg/dl (2.5-4.9) H 09/14/23 05:51 Magnesium 2.4 mg/dl (1.7-2.4) 09/14/23 05:51 Total Bilirubin 0.9 mg/dl (0.2-1.0) 09/13/23 15:44 AST 20 U/L (13-39) 09/13/23 15:44 ALT 18 U/L (7-52) 09/13/23 15:44 Alkaline Phosphatase 129 U/L (34-104) H 09/13/23 15:44 Total Protein 7.8 gm/dl (6.0-8.3) 09/13/23 15:44 Albumin 3.5 gm/dl (3.4-5.0) 09/13/23 15:44 Globulin 4.3 gm/dl (2.5-4.0) H 09/13/23 15:44 Albumin/Globulin Ratio 0.8 (0.9-2) L 09/13/23 15:44 25-OH Vitamin D Total 15.1 ng/ml (30-100) L 09/13/23 15:40 PTH Intact 9.7 pg/ml (12.0-88.0) L 09/13/23 18:47 Urine Color Yellow 09/13/23 15:49 Urine Appearance Cloudy (Clear) A 09/13/23 15:49 Urine pH 6.5 (4.5-7.5) 09/13/23 15:49 Ur Specific [place] 1.011 (1.000-1.030) 09/13/23 15:49 Urine Protein 2+ (Negative) H 09/13/23 15:49 Urine Glucose (UA) Negative (Negative) 09/13/23 15:49 Urine Ketones Negative (Negative) 09/13/23 15:49 Urine Blood 1+ (Negative) H 09/13/23 15:49 Urine Nitrite Negative (Negative) 09/13/23 15:49 Urine Bilirubin Negative (Negative) 09/13/23 15:49 Urine Urobilinogen Negative (Negative) 09/13/23 15:49 Ur Leukocyte Esterase 2+ (Negative) H 09/13/23 15:49 Urine WBC (Auto) >30 /hpf (0-5) H 09/13/23 15:49 Urine RBC (Auto) 10-30 /hpf (0-4) H 09/13/23 15:49 U Hyaline Cast (Auto) 1-5 /lpf (0-5) 09/13/23 15:49 U Epithel Cells (Auto) >30 /lpf (0-5) H 09/13/23 15:49 Urine Bacteria (Auto) 1+ (Negative) H 09/13/23 15:49 Urine Crystals Not Reportable 09/13/23 15:49 Calcium Oxalate Crystal Present (None Prsent) A 09/13/23 15:[address] 09/13/23 15:19 CT lumbar spine wo con CLINICAL HISTORY: Back Pain TECHNIQUE: Multidetector row helical CT of the lumbar spine was performed without administration of intravenous contrast. Coronal and sagittal reformations were obtained. Automated dose lowering techniques and/or adjustment according to patient size were utilized for this exam. CT DOSE: 1131.19 mGy.cm Comparison: Comparison is made to CT lumbar spine 05/22/2022 FINDINGS: For counting purposes, the last complete intervertebral disc space is considered L5-S1. Acute fractures are seen in the vertebral body of L1 extending to the posterior aspect of the vertebral body. The L1 vertebral body is notably radiolucent. There is retropulsion of approximately 4 mm. The posterior elements are not definitely affected. There is a fracture of the L1 transverse process. There is an acute fracture of the superior endplate of L2 without involvement of the posterior aspect of the vertebral body with the posterior elements. Multilevel d egenerative changes are seen. Atherosclerotic changes are seen in the aorta. Redemonstration of osteoblastic lesion of L4. IMPRESSION: 1. There is a fracture of the L1 vertebral body involving the anterior and posterior aspects of the vertebral body but without involvement of the posterior elements, with notable radiolucency concerning for lytic disease resulting in a pathologic fracture. 4 mm retropulsion is seen. 2. Left transverse process fracture of L1. 3. Fracture of the superior endplate of L2. ACT 112: Negative or not required by law. Electronically signed by: Zack Otoole M.D. 09/13/2023 4:19 PM Chest X-Ray 12/19/23 15:20 XR chest 1V portable CLINICAL HISTORY: missed dialysis TECHNIQUE: Single frontal radiograph of the chest was obtained. Comparison: Comparison is made to chest radiograph 12/18/2022 FINDINGS: Right dual lumen catheter is seen. Right humeral orthopedic hardware is unchanged. Calcified aortic knob is seen. The lungs are clear. No evidence of pleural effusion or pneumothorax. IMPRESSION: No acute chest disease, in particular no significant pulmonary edema. ACT 112: Negative or not required by law. Electronically signed by: Zack Otoole M.D. 09/13/2023 3:41 PM PG Care Time/CCT Total # of Minutes Spent Total Time Spent with Patient: Total time spent is greater than 50% in coordination of care (as documented) at patient's floor/unit and/or counseling patient: Coding Level of Care Code 56951 IN/OBS CONSULT LVL 5,80M Diagnoses ESRD (end stage renal disease) N18.6 Hypercalcemia E83.52 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
[2023-09-14] MEDS: ACETAMINOPHEN 325 MG TAB PO SCH ×2 (14:01→20:20)
[2023-09-14] MEDS: traMADol HCL 50 MG TABLET PO PRN (15:15)
--- NOTE | 2023-09-14 16:22 | Oncology Consultation ---
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 -Agree with kyphoplasty for pain relief. May benefit from biopsy at time of procedure since she has not had biopsy to confirm L1/L2 disease. Would also benefit from radiation therapy if disease is confirmed an L1/L2 -Regarding hypercalcemia, suspect that this is most likely due to hypercalcemia of malignancy. Cannot receive bisphosphonates due to end-stage renal disease. Per patient, she states that she previously received denosumab with no improvement. Regular dialysis should help with hypercalcemia. Other options would be calcitonin if symptomatic or reconsidering trial of denosumab but would defer to her primary oncologist at [facility]. Also defer to primary oncologist regarding future treatment plans since she appears to potentially have disease progression in her spine. Thank you for this consult. Oncology will sign off at this time. Please feel free to call if you have any other questions or History of Present Illness Reason for Consultation: Metastatic breast cancer Attending Physician: Tio Hameed DO History of Present Illness Pleasant 73-year-old female with history of ER/CA positive, HER2/becky negative metastatic left breast cancer for which she is currently on single agent treatment with monthly fulvestrant. She also has a history of end-stage renal disease dialysis dependent. Presented with lower back pain Lumbar spine x-ray was obtained which revealed moderate loss of height of L1 possibly reflecting a pathologic fracture. Lumbar spine CT on 09/13/2023 revealed fracture of L1 vertebral body involving the anterior and posterior aspect of the vertebral body, left transverse process fracture of L1 and fracture of superior endplate of L2. Labs obtained on admission also revealed hypercalcemia with calcium level of 12.9. States that she follows with Dr. Calvert of breast oncology at [facility]. Was previously on anastrozole plus Ibrance which was poorly tolerated prior to switching to single agent fulvestrant which has been better tolerated. Evaluated by orthopedic surgery earlier today with plan for possible kyphoplasty later this week. Regarding hypercalcemia, patient indicates that she has had recurrent hypercalcemia for which she was previously on Xgeva with no improvement in calcium levels Allergies Allergy/AdvReac Type Severity Reaction Status Date / Time amoxicillin Allergy Severe LIPS Verified 10/03/23 13:29 SWELLED, "RED ALL OVER" doxycycline Allergy Severe LIPS Verified 06/28/23 13:29 SWELLED, "RED ALL OVER". cephalexin [From Keflex] Allergy Intermediate skin Verified 06/28/23 13:29 starts to peel off sulfamethoxazole Allergy Unknown Unknown Verified 06/28/23 13:29 [From Bactrim] trimethoprim [From Bactrim] Allergy Unknown Unknown Verified 06/28/23 13:29 atorvastatin AdvReac Intermediate Myalgia Verified 06/28/23 13:29 Home Medications Medication Instructions Recorded Confirmed Type omega-3 fatty acids 1,000 mg 2,000 mg (2 x 1,000 mg) PO BID 07/19/22 09/13/23 Rx capsule #360 caps allopurinol 100 mg tablet 50 mg (1/2 x 100 mg) PO DAILY #45 06/28/23 09/13/23 Rx tabs furosemide 40 mg tablet 40 mg PO BID #180 tabs 06/28/23 09/13/23 Rx insulin aspart U-100 100 unit/mL See Rx Instructions subcut 06/28/23 09/13/23 Rx (3 mL) subcutaneous pen (Novolog DIRECTED #135 mL FlexPen U-100 Insulin aspart) lidocaine 5 % topical patch 1 patch topical DAILY #30 ea 06/28/23 09/13/23 Rx metoprolol succinate 25 mg 25 mg PO DAILY #90 tabs 06/28/23 09/13/23 Rx tablet,extended release 24 hr pen needle, diabetic 32 gauge x #600 ea 06/28/23 06/28/23 Rx 5/32" (BD Sheila 2nd Gen Pen Needle) tramadol 50 mg tablet 50 mg PO Q6H PRN Pain #30 tabs 06/28/23 09/13/23 Rx venlafaxine 75 mg capsule,extended 75 mg PO DAILY #90 caps 06/28/23 09/13/23 Rx release 24 hr prednisone 10 mg tablet 10 mg PO DAILY #30 tabs 09/06/23 09/13/23 Rx insulin glargine 100 unit/mL (3 10 unit subcut BID 09/13/23 09/13/23 History mL) subcutaneous pen (Lantus Solostar U-100 Insulin) Patient History Medical History CKD (chronic kidney disease) stage V requiring chronic dialysis Elevated troponin Anemia Iron deficiency anemia (HFpEF) heart failure with preserved ejection fraction Mobitz type 1 second degree AV block Breast cancer diagnosed 2020 Statin myopathy Hyperuricemia Crystal arthropathy Candidal intertrigo Chronic stasis dermatitis Dyslipidemia Seborrheic dermatitis Type 2 diabetes mellitus HTN (hypertension) GERD (gastroesophageal reflux disease) MCKENZIE (nonalcoholic steatohepatitis) Surgical History History of tonsillectomy and adenoidectomy Hx of cholecystectomy History of appendectomy Humerus fracture surgical repair Family History Father Depression Diabetes Mother Hypertension Kidney stones Gallbladder disease Denies family history of Ovarian cancer Prostate cancer Myocardial infarction Breast cancer Colorectal cancer Social History Smoking Status: Unknown if ever smoked Second Hand Exposure: No; Do You Dip or Chew Tobacco: No; Hx Alcohol Use: No Hx Substance Use: No Preferred Language: Beninese Communication Ability: Effective Visual Impairment: Limited Hearing Ability: Normal Police Officer Required: No Beliefs That Will Affect Care: None marital status: Current Living Situation: Spouse 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 Feels Safe at Home: Yes Safety Concerns: Feels Safe At This Time Childhood Exposure to Second-Hand Smoke: No Diet: regular Dental Care, Regularly: Yes Physical Activity Frequency: Does not Exercise Seatbelt Use: never Sunscreen Use: No Assistive Devices: Bedside Commode, Cane, Scooter/Electric Scooter and Walker Results & Data Vital Signs (Past 12 Hours) Vital Signs Temp Pulse Pulse Pulse Resp BP BP 09/14/23 15:21 36.6 C 75 17 09/14/23 13:15 36.4 C L 69 09/14/23 13:00 81 105/72 09/14/23 12:30 75 160/71 H 09/14/23 12:00 63 165/66 H 09/14/23 11:30 60 156/70 H 09/14/23 11:00 51 L 138/52 L 09/14/23 10:38 65 143/77 H 09/14/23 10:32 36.5 C 71 09/14/23 07:18 36.4 C L 63 18 183/72 H 09/14/23 04:32 36.1 C L 68 16 BP Pulse Ox O2 Del Method 09/14/23 15:21 127/52 L 99 Room Air 09/14/23 13:15 158/70 H 09/14/23 13:00 09/14/23 12:30 09/14/23 12:00 09/14/23 11:30 09/14/23 11:00 09/14/23 10:38 09/14/23 10:32 09/14/23 07:18 99 Room Air 09/14/23 04:32 165/74 H 98 Room Air
--- NOTE | 2023-09-14 16:40 | Billing Data ---
Date of Service September 14, 2023 Coding Level of Care Code 72868 SUB INP/OBS CARE MIN
[2023-09-15] MEDS: HYDROmorphone INJ 0.5 MG/0.5 ML SYR IV PRN ×4 (00:49→15:47)
[2023-09-15] MEDS: traMADol HCL 50 MG TABLET PO PRN (01:40)
[2023-09-15 06:19] LABS: Basophils # (auto) 0.02 K/uL (0.00-0.20); Basophils % (auto) 0.3 %; Eosinophils # (auto) 0.12 K/uL (0.00-0.50); Eosinophils % (auto) 1.6 %; Hematocrit (blood only) 33.7 % (37.0-47.0); Hemoglobin 10.5 g/dl (12.0-16.0); Immature Granulocytes # (auto) 0.05 K/uL (0.01-0.20); Immature Granulocytes % (auto) 0.7 %; Lymphocytes # (auto) 0.97 K/uL (1.20-3.40); Lymphocytes % (auto) 12.7 %; Mean Corpuscular Hemoglobin 33.2 pg (25.0-34.0); Mean Corpuscular Hgb Conc 31.2 g/dL (32.0-36.0); Mean Corpuscular Volume 106.6 fL (80.0-100.0); Monocytes # (auto) 0.56 K/uL (0.11-0.59); Monocytes % (auto) 7.3 %; Neutrophils # (auto) 5.91 K/uL (1.40-6.50); Neutrophils % (auto) 77.4 %; Platelet Count 205 K/uL (130-400); RDW Coefficient of Variation 14.6 % (11.5-14.5); RDW Standard Deviation 57.9 fL (36.4-46.3); Red Blood Count 3.16 M/uL (4.20-5.40); White Blood Count 7.63 K/ul (4.8-10.8)
[2023-09-15 06:36] LABS: BUN Creatinine Ratio 10.8 (10-20); Calcium 11.4 mg/dl (8.6-10.3); Creatinine Clr Calc Pharmacy 16.8 ml/min; Est GFR (Non-African American) 13.8 ml/min; Potassium 3.5 mmol/L (3.5-5.1)
[2023-09-15] MEDS: VENLAFAXINE HCL XR 75 MG CAPXR PO SCH (08:32)
[2023-09-15] MEDS: allopurinoL 100 MG TAB PO SCH (08:32)
[2023-09-15] MEDS: FUROSEMIDE 40 MG TAB PO SCH ×2 (08:32→17:47)
[2023-09-15] MEDS: METOPROLOL SUCC 25MG EXT REL TAB PO SCH (08:32)
[2023-09-15] MEDS: predniSONE 10 MG TABLET PO SCH (08:33)
[2023-09-15] MEDS: ACETAMINOPHEN 325 MG TAB PO SCH ×3 (08:33→20:34)
[2023-09-15] MEDS: LIDOCAINE 5% 1 PATCH TD SCH (08:33)
--- NOTE | 2023-09-15 08:35 | Nephrology Progress Note ---
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 Beyer was evaluated in her hospital room this morning. She c/o persistent back discomfort. Review of Systems Constitutional: no fever Eyes: no problem reported Ear, Nose, Mouth, Throat: no problem reported Respiratory: no cough and no dyspnea Cardiovascular: no chest pain Gastrointestinal: no abdominal pain, no nausea, no vomiting and no diarrhea/loose stools Genitourinary: no dysuria Physical Exam Constitutional: + ill appearing (in distress due to back pain) Eyes: PERRL, conjunctivae normal, anicteric sclerae ENMT: external ear and nose normal, oropharynx normal Neck: trachea midline, no thyromegaly Respiratory: normal respiratory effort, lungs clear to auscultation Cardiovascular: RRR, no murmur, no edema Gastrointestinal (Abdomen): normal bowel sounds, soft, nontender, no hepatosplenomegaly Skin: no rashes, warm and dry Neurologic: Speech / Cognition: normal speech and normal cognition Results & Data Vital Signs (Past 12 Hours) Vital Signs Temp Pulse Resp BP BP Pulse Ox O2 Del Method 09/15/23 03:00 36.5 C 74 18 147/80 H 99 Room Air 09/15/23 00:13 36.3 C L 74 17 124/72 95 Room Air Laboratory Results Laboratory Results - last 24 hr 09/14/23 09/14/23 09/14/23 14:00 15:17 16:34 WBC RBC Hgb Hct MCV MCH MCHC RDW Std Deviation RDW Coeff of Amparo Plt Count MPV Immature Gran % (Auto) Neut % (Auto) Lymph % (Auto) [place] % (Auto) Eos % (Auto) Baso % (Auto) Neut # (Auto) Lymph # (Auto) [place] # (Auto) Eos # (Auto) Baso # (Auto) Immature Gran # (Auto) Sodium Potassium Chloride Carbon Dioxide Anion Gap BUN Creatinine Est Cr Clr Drug Dosing Est GFR ( Amer) Est GFR (Non-Af Amer) BUN/Creatinine Ratio Glucose POC Glucose 90 109 H Calcium Hep Bs Antigen Pending Hep Bs Ag Confirmation Pending Hep Bs Antibody, Quant Pending 09/14/23 09/15/23 09/15/23 20:10 05:53 08:10 WBC 7.63 RBC 3.16 L Hgb 10.5 L Hct 33.7 L MCV 106.6 H MCH 33.2 MCHC 31.2 L RDW Std Deviation 57.9 H RDW Coeff of Amparo 14.6 H Plt Count 205 MPV 10.0 Immature Gran % (Auto) 0.7 Neut % (Auto) 77.4 Lymph % (Auto) 12.7 [place] % (Auto) 7.3 Eos % (Auto) 1.6 Baso % (Auto) 0.3 Neut # (Auto) 5.91 Lymph # (Auto) 0.[address] [place] # (Auto) 0.56 Eos # (Auto) 0.12 Baso # (Auto) 0.02 Immature Gran # (Auto) 0.05 Sodium 136 Potassium 3.5 Chloride 101 Carbon Dioxide 28 Anion Gap 7 BUN 34 H Creatinine 3.14 H D Est Cr Clr Drug Dosing 16.8 Est GFR ( Amer) 16.0 Est GFR (Non-Af Amer) 13.8 BUN/Creatinine Ratio 10.8 Glucose 102 H POC Glucose 114 H 97 Calcium 11.4 H Hep Bs Antigen Hep Bs Ag Confirmation Hep Bs Antibody, Quant PG Care Time/CCT Total # of Minutes Spent Total Time Spent with Patient: Total time spent is greater than 50% in coordination of care (as documented) at patient's floor/unit and/or counseling patient: Coding Level of Care Code 27141 SUB INP/OBS CARE 3/50MIN Diagnoses ESRD (end stage renal disease) N18.6 Hypercalcemia E83.52 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
[2023-09-15] MEDS: HEPARIN SOD 5,000 UNIT/0.5 ML VIAL SQ SCH ×2 (08:36→20:35)
--- NOTE | 2023-09-15 08:48 | Orthopedic Progress Note ---
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 We lengthy discussion today regarding kyphoplasty involving L1 and L2. Ideally this would provide some additional support and help her with a significant component of her pain and limitations. Risk benefits pros cons alternatives were outlined detail. Will plan for surgery tomorrow. Make her n.p.o. after midnight. Admission and Anticipated Discharge Date Admission Date: September 13, 2023 Subjective Patient continues to struggle with thoracolumbar back pain related to some surgical invention. Physical Exam Physical Exam: Patient is alert and oriented. She is comfortable in bed. She does exhibit significant discomfort when trying to sit upright. Results & Data Vital Signs (Past 12 Hours) Vital Signs Temp Pulse Resp BP BP Pulse Ox O2 Del Method 09/15/23 03:00 36.5 C 74 18 147/80 H 99 Room Air 09/15/23 00:13 36.3 C L 74 17 124/72 95 Room Air
[2023-09-15] MEDS ORDERED: LANTUS PER UNIT CHARGE SQ SCH ×2 (09:00→21:00)
[2023-09-15] MEDS: INSULIN ASPART PER UNIT CHARGE SC SCH ×4 (09:05→20:35)
--- NOTE | 2023-09-15 10:13 | Hospitalist Progress Note ---
Date of Service September 15, 2023 Assessment & Plan (1) Intractable back pain: Plan: - Acute worsening of back pain x 2 weeks, in the setting of metastatic breast cancer to the lumbar spine - Lumbar spine CT revealed fracture of L1 concerning for lytic disease resulting in pathologic fracture; also fracture of superior endplate of L2 - Patient's back pain was acutely exacerbated by lying supine during CT - History of poor response to morphine. Will continue tramadol 50 mg p.o. q6h as needed for pain - Lidocaine 5% patch daily - For breakthrough pain: >Acetaminophen 650 mg p.o. q4h as needed for pain 1-3/fever >Dilaudid 0.25 mg IV q4h for pain 4-6 >Dilaudid 1 mg IV q3h for pain 7-10 - Miralax powder daily as needed for opioid-induced constipation - Zofran 4 mg IV q4h as needed for nausea - Radiation oncology consulted: To perform palliative radiation x5 therapies starting today Dilaudid increased to 1mg IV Q3H for pain management since she will need to lie down for these therapies Will stay in the hospital until 5 therapies completed - Ortho spine consulted: Kyphoplasty tomorrow. NPO after midnight. (2) Breast cancer: Plan: - Dx in 2020; now metastatic to spine - Follows with [facility] - Patient was scheduled to have a Precedex shot at [facility] in [place] on 09/15 for back - Oncology consulted for hypercalcemia malignancy May benefit from biopsy during kyphoplasty tomorrow to confirm presence of bone mets Hypercalcemia -- likely due to malignancy; cannot use bisphosphonates due to ESRD; regular dialysis would help; leave trial of denosumab and further management to primary oncologist in [facility] in [facility] (3) Hypercalcemia: Plan: - Ca 12.9 on arrival. Level 11.4 today. - Likely secondary to metastatic cancer; not on bisphosphonates given renal function - Patient's hypercalcemia was being managed with her prednisone 5 mg daily; being taken for granulomatous disease, refractory hypercalcemia; recently increased to 10 mg daily - Continue prednisone 10 mg daily (4) ESRD (end stage renal disease): Plan: - HD on , and Fr - Potassium today 3.5 - Patient reports that she has missed her last 3 sessions due to inability to walk - Nephrology consulted: HD as scheduled during admission (5) Type 2 diabetes mellitus: Plan: - Glucose 125 on arrival - Last A1c at 5.4% on 01/17/2023 - On insulin glargine 10 units BID at home, per POA (Adele) - Will place on Lantus 14u BID while inpatient; on steroids - SSI; target BSG range 110-150mg/dL, CF 25, carb ratio 10 - Adjust regimen as needed (6) HTN (hypertension): Plan: - Continue metoprolol (7) MCKENZIE (nonalcoholic steatohepatitis): Plan: - Chronic; stable; mildly elevated alk phos at 129 - Otherwise LFTs WNL; continue to monitor (8) Asymptomatic bacteriuria: Plan: - In the setting of ESRD - UA positive on arrival - Urine culture ordered, pending Clinically, she denies burning with urination and dysuria; she reports she is currently producing urine - Treatment not indicated given patient is asymptomatic (9) (HFpEF) heart failure with preserved ejection fraction: Plan: - Continue Lasix Plan Disposition: Kyphoplasty tomorrow; If stable and circumstances don't change, discharge after palliative therapies are completed (x5) Full code T2DM, dialysis renal diet; NPO after midnight VTE PPx: SCDs, heparin 5000u SQ q12h Admission and Anticipated Discharge Date Admission Date: September 13, 2023 Supervising Physician Co-Signing Physician Notes I personally examined the patient and verified all barrett points of history and exam, discussed case, and agree with decision making with Dr Jose nix seemscharley to be doing reasonable. kyphoplasty tomorrow. pharmacy was able to obtain fulvestrant for today. Vitals noted, in general pleasant seems a little easily distracted but no pain no distress no respiratory distress no respiratory suppression. Breathing unlabored no accessory muscle use good effort. Skin without rashes pallor or icterus. Neuro without focal deficits. Intractable lower back pain - concern for metastatic spread with L1 compression fracture. Short-term pain control with Dilaudid, kyphoplasty on 09/16. Agree biopsy at time of kyphoplasty would be helpful. Hypercalcemia - Certainly concerning for malignancy related, although she also carries a baseline of granulomatous disease. Follow. improving. Appreciate nephrology and hematology input. ESRD on dialysis - Ongoing HD DVT prophylaxisheparin subcu. Otherwise as above Subjective Pauline is a pleasant 73 y/o female with PMHx of Breast cancer with mets to lumbar spine who was admitted due to intractable back pain that was rated a 10/10 in intensity. Today she refers feeling somewhat okay, but is still having severe back pain that he rates 9/10 in intensity. She has been moved repeatedly when she slides down the bed and is s/p radiation therapy and dialysis yesterday, so suspect constant positional changes may play a role in her pain exacerbation. Denies chest pain, SOB, fevers, chills, malaise, or any other symptom. Review of Systems Review of Systems: As per HPI. Physical Exam Physical Exam: General: Awake. Alert. Oriented to person, time, and place. Responsive. Afebrile. Uncomfortable and shifting due to pain. No acute distress. Chest: left breast firm to palpation with area of skin dimpling and dark discoloration on medial aspect Cardiac: Regular rate and rhythm, no murmurs/rubs/gallops. Respiratory: Clear to auscultation bilaterally a/p, no wheezes/rales/rhonchi. No increased work of breathing. Symmetrical chest rise. No respiratory distress. Abdomen: Soft, nontender, nondistended. Bowel sounds present. Psych: Euthymic affect. Mood and affect congruence. Regular speech rate and content. Results & Data Results & Data Vital Signs (Past 12 Hours) Vital Signs Temp Pulse Pulse Pulse Resp BP BP 09/15/23 09:00 68 09/15/23 09:00 09/15/23 07:47 36.4 C L 80 20 135/71 09/15/23 03:00 36.5 C 74 18 147/80 H 09/15/23 00:13 36.3 C L 74 17 124/72 Pulse Ox O2 Del Method 09/15/23 09:00 09/15/23 09:00 Room Air 09/15/23 07:47 99 Room Air 09/15/23 03:00 99 Room Air 09/15/23 00:13 95 Room Air Resident Activity Tracking Resident Involvement: Resident Care Provided Care Provided: Adult Hospital Medicine (2) Breast cancer Breast location: unspecified site of breast Estrogen receptor status: unspecified Laterality: left Patient sex: female Qualified Code(s): C50.912 - Malignant neoplasm of unspecified site of left female breast
[2023-09-15] MEDS: ONDANSETRON INJ 2 MG/ML 2 ML VIAL IV PRN (12:58)
[2023-09-15] MEDS ORDERED: FULVESTRANT 250 MG/5 ML SYRINGE IM SCH (13:00)
--- NOTE | 2023-09-15 13:24 | Billing Data ---
Date of Service September 15, 2023 Coding Level of Care Code 06872 SUB INP/OBS CARE MIN
[2023-09-15] MEDS: FULVESTRANT 250 MG/5 ML SYRINGE IM SCH ×2 (13:54→14:29)
[2023-09-16] MEDS: traMADol HCL 50 MG TABLET PO PRN (05:38)
[2023-09-16] MEDS: INSULIN ASPART PER UNIT CHARGE SC SCH ×4 (05:42→21:05)
[2023-09-16 05:54] LABS: Basophils # (auto) 0.02 K/uL (0.00-0.20); Basophils % (auto) 0.2 %; Eosinophils % (auto) 3.5 %; Hematocrit (blood only) 34.2 % (37.0-47.0); Hemoglobin 10.7 g/dl (12.0-16.0); Immature Granulocytes # (auto) 0.05 K/uL (0.01-0.20); Immature Granulocytes % (auto) 0.6 %; Lymphocytes # (auto) 1.24 K/uL (1.20-3.40); Lymphocytes % (auto) 14.3 %; Mean Corpuscular Hemoglobin 33.4 pg (25.0-34.0); Mean Corpuscular Hgb Conc 31.3 g/dL (32.0-36.0); Mean Corpuscular Volume 106.9 fL (80.0-100.0); Mean Platelet Volume 10.3 fL (9.4-12.4); Monocytes # (auto) 0.62 K/uL (0.11-0.59); Monocytes % (auto) 7.2 %; Neutrophils # (auto) 6.43 K/uL (1.40-6.50); Neutrophils % (auto) 74.2 %; Platelet Count 221 K/uL (130-400); RDW Coefficient of Variation 14.8 % (11.5-14.5); RDW Standard Deviation 58.3 fL (36.4-46.3); White Blood Count 8.66 K/ul (4.8-10.8)
[2023-09-16 06:09] LABS: Albumin Globulin Ratio 0.8 (0.9-2); Albumin Level 3.2 gm/dl (3.4-5.0); BUN Creatinine Ratio 10.8 (10-20); Bilirubin,Total 0.6 mg/dl (0.2-1.0); Calcium 11.4 mg/dl (8.6-10.3); Creatinine Clr Calc Pharmacy 13.5 ml/min; Est GFR (African American) 12.3 ml/min; Est GFR (Non-African American) 10.6 ml/min; Phosphorus 5.8 mg/dl (2.5-4.9); Potassium 3.7 mmol/L (3.5-5.1); Total Protein 7.2 gm/dl (6.0-8.3)
[2023-09-16] MEDS: ONDANSETRON INJ 2 MG/ML 2 ML VIAL IV PRN (06:13)
[2023-09-16] MEDS ORDERED: SODIUM CHLORIDE 0.9% 1,000 ML IV PRN (07:00)
[2023-09-16] MEDS: HYDROmorphone INJ 0.5 MG/0.5 ML SYR IV PRN ×2 (08:28→12:32)
[2023-09-16 08:57] LABS: HBSAG NON-REACTIVE (NON-REACTIVE); Hepatitis B Surface Ab, Quant <5 mIU/mL (> OR = 10)
--- NOTE | 2023-09-16 09:45 | Hospitalist Progress Note ---
Date of Service September 16, 2023 Assessment & Plan (1) Intractable back pain: Plan: - Acute worsening of back pain x 2 weeks, in the setting of metastatic breast cancer to the lumbar spine - Lumbar spine CT revealed fracture of L1 concerning for lytic disease resulting in pathologic fracture; also fracture of superior endplate of L2 - History of poor response to morphine. Will continue tramadol 50 mg p.o. q6h as needed for pain - Lidocaine 5% patch daily - For breakthrough pain: >Acetaminophen 650 mg p.o. q4h as needed for pain 1-3/fever >Dilaudid 0.5 mg IV q4h for pain 4-6 >Dilaudid 1 mg IV q4h for pain 7-10 - Miralax powder daily as needed for opioid-induced constipation - Zofran 4 mg IV q4h as needed for nausea - Radiation oncology consulted: To perform palliative radiation x5 therapies Will stay in the hospital until 5 therapies completed - Ortho spine consulted: Kyphoplasty today -- may be contribute to improvement of pain (2) Breast cancer: Plan: - Dx in 2020; now metastatic to spine - [place]s [place] [facility] [place] Fulvestrant given yesterday - Oncology consulted for hypercalcemia malignancy May benefit from biopsy during kyphoplasty to confirm presence of bone mets Hypercalcemia -- likely due to malignancy; cannot use bisphosphonates due to ESRD; regular dialysis would help; leave trial of denosumab and further management to primary oncologist in [facility] in [facility] (3) Hypercalcemia: Plan: - Ca 12.9 on arrival. Level 11.4 today. - Likely secondary to metastatic cancer; not on bisphosphonates given renal function - Patient's hypercalcemia was being managed with her prednisone 5 mg daily; being taken for granulomatous disease, refractory hypercalcemia; recently increased to 10 mg daily - Continue prednisone 10 mg daily (4) ESRD (end stage renal disease): Plan: - HD on M, and Fr - Potassium today 3.5 - Patient reports that she has missed her last 3 sessions due to inability to walk - Nephrology consulted: HD during admission (5) Type 2 diabetes mellitus: Plan: - Glucose 125 on arrival - Last A1c at 5.4% on 01/17/2023 - On insulin glargine 10 units BID at home, per POA (Adele) - Will place on Lantus 14u BID while inpatient; on steroids - SSI; target BSG range 110-150mg/dL, CF 25, carb ratio 10 - Adjust regimen as needed (6) HTN (hypertension): Plan: - Continue metoprolol (7) MCKENZIE (nonalcoholic steatohepatitis): Plan: - Chronic; stable; mildly elevated alk phos at 129 - Otherwise LFTs WNL; continue to monitor (8) Asymptomatic bacteriuria: Plan: - In the setting of ESRD - UA positive on arrival - Urine culture with high counts of 3 organisms. Will not repeat since patient has not c/o dysuria or urinary symptoms (9) (HFpEF) heart failure with preserved ejection fraction: Plan: - Continue Lasix Plan Disposition: If stable and circumstances don't change, discharge after palliative therapies are completed (x5) Full code T2DM, dialysis renal diet VTE PPx: SCDs, heparin 5000u SQ q12h Admission and Anticipated Discharge Date Admission Date: September 13, 2023 Supervising Physician Co-Signing Physician Notes I personally examined the patient and verified all barrett points of history and exam, discussed case, and agree with decision making with Dr Garcia for kyphoplasty shortly after i see her. Vitals noted, in general pleasant seems a little easily distracted but no pain no distress no respiratory distress no respiratory suppression. Breathing unlabored no accessory muscle use good effort. Skin without rashes pallor or icterus. Neuro without focal deficits. Intractable lower back pain - concern for metastatic spread with L1 compression fracture. Short-term pain control with Dilaudid, kyphoplasty later today. Agree biopsy at time of kyphoplasty would be helpful. Hypercalcemia - Certainly concerning for malignancy related, although she also carries a baseline of granulomatous disease. Follow- now stable. Appreciate nephrology and hematology input. ESRD on dialysis - Ongoing HD DVT prophylaxisheparin subcu. Otherwise as above Subjective Pauline is a pleasant 73 y/o female with PMHx of Breast cancer with mets to lumbar spine who was admitted due to intractable back pain that was rated a 10/10 in intensity. Evaluated today and she was aaox3, responsive, and with no respiratory depression. Today she refers feeling nauseous and having pain she rates an 8/10 in intensity. She was moved early this morning to have her bed changed and has been in an uncomfortable position since then. Concerned about her blood sugar since she hasn't eaten since yesterday. Counseled this was due to having placed her NPO for her orthopedic procedure this afternoon. No other concern. Denies chest pain, SOB, fevers, chills, malaise, or any other symptom. Review of Systems Review of Systems: As per HPI. Physical Exam Physical Exam: General: Awake. Alert. Oriented to person, time, and place. Responsive. Afebrile. Uncomfortable and shifting due to pain. No acute distress. Chest: left breast firm to palpation with area of skin dimpling and dark discoloration on medial aspect Cardiac: Regular rate and rhythm, no murmurs/rubs/gallops. Respiratory: Clear to auscultation bilaterally a/p, no wheezes/rales/rhonchi. No increased work of breathing. Symmetrical chest rise. No respiratory distress. Abdomen: Soft, nontender, nondistended. Bowel sounds present. Psych: Euthymic affect. Mood and affect congruence. Regular speech rate and content. Results & Data Results & Data Vital Signs (Past 12 Hours) Vital Signs Temp Pulse Pulse Pulse Resp BP BP 09/16/23 07:40 36.6 C 57 L 19 185/71 H 09/16/23 03:43 36.4 C L 55 L 16 155/74 H 09/15/23 23:35 36.7 C 62 18 134/74 09/15/23 22:56 09/15/23 21:59 51 L Pulse Ox O2 Del Method O2 Flow Rate 09/16/23 07:40 100 Nasal Cannula 2 09/16/23 03:43 100 Nasal Cannula 2 09/15/23 23:35 99 Room Air 09/15/23 22:56 Nasal Cannula 2 09/15/23 21:59 Resident Activity Tracking Resident Involvement: Resident Care Provided Care Provided: Adult [facility] (2) Breast cancer Breast location: unspecified site of breast Estrogen receptor status: unspecified Laterality: left Patient sex: female Qualified Code(s): C50.912 - Malignant neoplasm of unspecified site of left female breast
--- NOTE | 2023-09-16 10:33 | Anesthesiology Consultation ---
Date of Service September 16, 2023 Assessment & Plan Chart Review Chart Review: Acceptable Risk for Surgery and Patient NOT seen in Pre Admission Testing History Surgery Operation Date: 09/16/23 07:00 Proposed Procedures p L1-L2 Kyphoplasty - Ross Adame DO Height/Weight Height: 5 ft 2 in Weight: 96 kg Allergies Allergy/AdvReac Type Severity Reaction Status Date / Time amoxicillin Allergy Severe LIPS Verified 06/28/23 13:29 SWELLED, "RED ALL OVER" doxycycline Allergy Severe LIPS Verified 06/28/23 13:29 SWELLED, "RED ALL OVER". cephalexin [From Keflex] Allergy Intermediate skin Verified 06/28/23 13:29 starts to peel off sulfamethoxazole Allergy Unknown Unknown Verified 06/28/23 13:29 [From Bactrim] trimethoprim [From Bactrim] Allergy Unknown Unknown Verified 06/28/23 13:29 atorvastatin AdvReac Intermediate Myalgia Verified 06/28/23 13:29 Medications Home Medications Medication Instructions Recorded Confirmed Last Taken omega-3 fatty acids 1,000 mg 2,000 mg (2 x 1,000 mg) PO BID 07/19/22 09/13/23 11/02/22 capsule #360 caps allopurinol 100 mg tablet 50 mg (1/2 x 100 mg) PO DAILY #45 06/28/23 09/13/23 Unknown tabs furosemide 40 mg tablet 40 mg PO BID #180 tabs 06/28/23 09/13/23 Unknown insulin aspart U-100 100 unit/mL See Rx Instructions subcut 06/28/23 09/13/23 Unknown (3 mL) subcutaneous pen (Novolog DIRECTED #135 mL FlexPen U-100 Insulin aspart) lidocaine 5 % topical patch 1 patch topical DAILY #30 ea 06/28/23 09/13/23 Unknown metoprolol succinate 25 mg 25 mg PO DAILY #90 tabs 06/28/23 09/13/23 Unknown tablet,extended release 24 hr pen needle, diabetic 32 gauge x #600 ea 06/28/23 06/28/23 Unknown " (BD Sheila 2nd Gen Pen Needle) tramadol 50 mg tablet 50 mg PO Q6H PRN Pain #30 tabs 06/28/23 09/13/23 Unknown venlafaxine 75 mg capsule,extended 75 mg PO DAILY #90 caps 06/28/23 09/13/23 Unknown release 24 hr prednisone 10 mg tablet 10 mg PO DAILY #30 tabs 09/06/23 09/13/23 Unknown insulin glargine 100 unit/mL (3 10 unit subcut BID 09/13/23 09/13/23 Unknown mL) subcutaneous pen (Lantus Solostar U-100 Insulin) Active Medications Generic Name Dose Route Start Last Admin Trade Name Freq PRN Reason Stop Dose Admin Acetaminophen 650 mg 09/14/23 14:00 09/15/23 20:34 Acetaminophen 325 Mg Tab PO 10/14/23 13:59 650 mg TID TYLOR Administration Allopurinol 50 mg 09/14/23 09:00 09/15/23 08:32 Allopurinol 100 Mg Tab PO 10/14/23 08:59 50 mg DAILY TYLOR Administration Furosemide 40 mg 09/14/23 09:00 09/15/23 17:47 Furosemide 40 Mg Tab PO 10/14/23 08:59 40 mg BID17 TYLOR Administration Heparin Sodium (Porcine) 5,000 units 09/13/23 21:00 09/15/23 20:35 Heparin Sod 5,000 Unit/0.5 Ml Vial SQ 10/13/23 20:59 Not Given Q12 [facility] Hydromorphone HCl 1 mg 09/15/23 18:10 09/16/23 08:28 Hydromorphone Inj 0.5 Mg/0.5 Ml Syr IV 09/28/23 10:31 1 mg Q4H PRN Administration Severe Pain (7,8,9,10) on NRS Insulin Aspart 0 units 09/16/23 06:00 09/16/23 05:42 Insulin Aspart Per Unit Charge SC 10/16/23 05:59 Not Given Q6 [facility] Insulin Glargine 13 units 09/15/23 09:00 09/15/23 09:05 Lantus Per Unit Charge SQ 10/15/23 08:59 13 units BID TYLOR Administration Lidocaine 1 patch 09/14/23 09:00 09/15/23 08:33 Lidocaine 5% 1 Patch TD 10/14/23 08:59 Not Given DAILY [facility] Metoprolol Succinate 25 mg 09/14/23 09:00 09/15/23 08:32 Metoprolol Succ 25mg Ext Rel Tab PO 10/14/23 08:59 25 mg DAILY TYLOR Administration Miscellaneous 1 each 09/13/23 21:00 09/15/23 20:36 Remove Lidoderm Patch N/A 10/13/23 20:59 Not Given DAILY@2100 TYLOR Ondansetron HCl 4 mg 09/13/23 19:46 09/16/23 06:13 Ondansetron Inj 2 Mg/Ml 2 Ml Vial IV 10/13/23 19:45 4 mg Q6H PRN Administration Nausea Prednisone 10 mg 09/14/23 09:00 09/15/23 08:33 Prednisone 10 Mg Tablet PO 10/14/23 08:59 10 mg DAILY TYLOR Administration Tramadol HCl 50 mg 09/13/23 19:46 09/16/23 05:38 Tramadol Hcl 50 Mg Tablet PO 10/13/23 19:45 50 mg Q6H PRN Administration Pain Venlafaxine HCl 75 mg 09/14/23 09:00 09/15/23 08:32 Venlafaxine Hcl Xr 75 Mg Capxr PO 10/14/23 08:59 75 mg DAILY TYLOR Administration Past Medical History Medical History CKD (chronic kidney disease) stage V requiring chronic dialysis Elevated troponin Anemia Iron deficiency anemia (HFpEF) heart failure with preserved ejection fraction Mobitz type 1 second degree AV block Breast cancer diagnosed 2020 Statin myopathy Hyperuricemia Crystal arthropathy Candidal intertrigo Chronic stasis dermatitis Dyslipidemia Seborrheic dermatitis Type 2 diabetes mellitus HTN (hypertension) GERD (gastroesophageal reflux disease) MCKENZIE (nonalcoholic steatohepatitis) Past Family History Family History Father Depression Diabetes Mother Hypertension Kidney stones Gallbladder disease Denies family history of Ovarian cancer Prostate cancer Myocardial infarction Breast cancer Colorectal cancer Past Surgical History Surgical History History of tonsillectomy and adenoidectomy Hx of cholecystectomy History of appendectomy Humerus fracture surgical repair Social History Smoking Status: Unknown if ever smoked Do You Dip or Chew Tobacco: No Hx Alcohol Use: No Hx Substance Use: No substance use type: does not use Physical Exam Vital Signs Last Vital Signs Temp 36.9 C 09/16/23 08:56 Pulse 67 09/16/23 10:00 Resp 19 09/16/23 07:40 BP 171/83 H 09/16/23 10:00 Pulse Ox 100 09/16/23 07:40 O2 Del Method Nasal Cannula 09/16/23 07:40 O2 Flow Rate 2 09/16/23 07:40 Testing Laboratory Results 09/16/23 05:32 09/16/23 05:32 PT 12.3 Seconds (9.0-12.0) H 09/14/23 05:51 INR 1.1 (0.9-1.1) 09/14/23 05:51 Urine Color Yellow 09/13/23 15:49 Urine Appearance Cloudy (Clear) A 09/13/23 15:49 Urine pH 6.5 (4.5-7.5) 09/13/23 15:49 Ur Specific [place] 1.011 (1.000-1.030) 09/13/23 15:49 Urine Protein 2+ (Negative) H 09/13/23 15:49 Urine Glucose (UA) Negative (Negative) 09/13/23 15:49 Urine Ketones Negative (Negative) 09/13/23 15:49 Urine Nitrite Negative (Negative) 09/13/23 15:49 Ur Leukocyte Esterase 2+ (Negative) H 09/13/23 15:49 Urine WBC (Auto) >30 /hpf (0-5) H 09/13/23 15:49 Urine RBC (Auto) 10-30 /hpf (0-4) H 09/13/23 15:49 U Hyaline Cast (Auto) 1-5 /lpf (0-5) 09/13/23 15:49 U Epithel Cells (Auto) >30 /lpf (0-5) H 09/13/23 15:49 Urine Bacteria (Auto) 1+ (Negative) H 09/13/23 15:49 09/13/23 15:49 Urine Culture - Final Urine,Clean Catch Three types of organisms present, all high counts. Repeat collection recommended. No further identifications or sensitivities to follow. 09/16/23 09/16/23 08:21 05:41 POC Glucose 85 81 Echocardiogram Date: 12/20/22 EF: 50-55 LV Function: dysfunctional (grad 2 diastolic dysfunction on previous echo) Valvular Disease: + (moderate on previous echo)
--- NOTE | 2023-09-16 11:15 | Nephrology Progress Note ---
Date of Service September 16, 2023 Assessment & Plan (1) ESRD (end stage renal disease): Plan: * Outpatient HD Rx: M&F [facility] 2.5hr, 2K 2Ca, F-180NR, EDW 99.5 kg * Will provide HD today for correction of azotemia and to lower serum Ca * Monitor PRP (2) Hypercalcemia: Plan: * Plan to provide 3x/week HD during hospitalization and monitor serum Ca * If persistent hypercalcemia, may need to consider another course of Denosumab (3) 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: Plan: * Patient scheduled for palliative radiation therapy to the spine * Kyphoplasty of lumbar spine scheduled for 09/16 afternoon (4) Breast cancer: Plan: * On monthly Fulvestrant Admission and Anticipated Discharge Date Admission Date: September 13, 2023 Subjective Ms. Beyer was evaluated in her hospital room this morning. She c/o persistent back discomfort. She was awaiting HD and then kyphoplasty Review of Systems Constitutional: no fever Eyes: no problem reported Ear, Nose, Mouth, Throat: no problem reported Respiratory: no cough and no dyspnea Cardiovascular: no chest pain Gastrointestinal: no abdominal pain, no nausea, no vomiting and no diarrhea/loose stools Genitourinary: no dysuria Physical Exam Constitutional: + ill appearing (in distress due to back pain) Eyes: PERRL, conjunctivae normal, anicteric sclerae ENMT: external ear and nose normal, oropharynx normal Neck: trachea midline, no thyromegaly Respiratory: normal respiratory effort, lungs clear to auscultation Cardiovascular: RRR, no murmur, no edema Gastrointestinal (Abdomen): normal bowel sounds, soft, nontender, no hepatosplenomegaly Skin: no rashes, warm and dry Neurologic: Speech / Cognition: normal speech and normal cognition Results & Data Vital Signs (Past 12 Hours) Vital Signs Temp Pulse Pulse Pulse Resp BP BP 09/16/23 10:45 09/16/23 10:00 67 171/83 H 09/16/23 09:30 74 169/69 H 09/16/23 09:07 72 164/73 H 09/16/23 08:56 36.9 C 74 09/16/23 07:40 36.6 C 57 L 19 09/16/23 03:43 36.4 C L 55 L 16 155/74 H 09/15/23 23:35 36.7 C 62 18 134/74 BP Pulse Ox O2 Del Method O2 Flow Rate 09/16/23 10:45 Room Air 09/16/23 10:00 09/16/23 09:30 09/16/23 09:07 09/16/23 08:56 09/16/23 07:40 185/71 H 100 Nasal Cannula 2 09/16/23 03:43 100 Nasal Cannula 2 09/15/23 23:35 99 Room Air Laboratory Results Laboratory Results - last 24 hr 09/14/23 09/15/23 09/15/23 15:17 11:52 16:51 WBC RBC Hgb Hct MCV MCH MCHC RDW Std Deviation RDW Coeff of Amparo Plt Count MPV Immature Gran % (Auto) Neut % (Auto) Lymph % (Auto) Lawrence % (Auto) Eos % (Auto) Baso % (Auto) Neut # (Auto) Lymph # (Auto) Lawrence # (Auto) Eos # (Auto) Baso # (Auto) Immature Gran # (Auto) Sodium Potassium Chloride Carbon Dioxide Anion Gap BUN Creatinine Est Cr Clr Drug Dosing Est GFR ( Amer) Est GFR (Non-Af Amer) BUN/Creatinine Ratio Glucose POC Glucose 91 102 H Calcium Phosphorus Total Bilirubin AST ALT Alkaline Phosphatase Total Protein Albumin Globulin Albumin/Globulin Ratio Hep Bs Antigen NON-REACTIVE Hep Bs Ag Confirmation TNP Hep Bs Antibody, Quant <5 L 09/15/23 09/16/23 09/16/23 20:10 05:32 05:41 WBC 8.66 RBC 3.20 L Hgb 10.7 L Hct 34.2 L MCV 106.9 H MCH 33.4 MCHC 31.3 L RDW Std Deviation 58.3 H RDW Coeff of Amparo 14.8 H Plt Count 221 MPV 10.3 Immature Gran % (Auto) 0.6 Neut % (Auto) 74.2 Lymph % (Auto) 14.3 Lawrence % (Auto) 7.2 Eos % (Auto) 3.5 Baso % (Auto) 0.2 Neut # (Auto) 6.43 Lymph # (Auto) 1.24 Lawrence # (Auto) 0.62 H Eos # (Auto) 0.30 Baso # (Auto) 0.02 Immature Gran # (Auto) 0.05 Sodium 134 L Potassium 3.7 Chloride 99 Carbon Dioxide 26 Anion Gap 9 BUN 42 H Creatinine 3.90 H D Est Cr Clr Drug Dosing 13.5 Est GFR ( Amer) 12.3 Est GFR (Non-Af Amer) 10.6 BUN/Creatinine Ratio 10.8 Glucose 83 POC Glucose 103 H 81 Calcium 11.4 H Phosphorus 5.8 H Total Bilirubin 0.6 AST 18 ALT 16 Alkaline Phosphatase 127 H Total Protein 7.2 Albumin 3.2 L Globulin 4.0 Albumin/Globulin Ratio 0.8 L Hep Bs Antigen Hep Bs Ag Confirmation Hep Bs Antibody, Quant 09/16/23 08:21 WBC RBC Hgb Hct MCV MCH MCHC RDW Std Deviation RDW Coeff of Amparo Plt Count MPV Immature Gran % (Auto) Neut % (Auto) Lymph % (Auto) Lawrence % (Auto) Eos % (Auto) Baso % (Auto) Neut # (Auto) Lymph # (Auto) Lawrence # (Auto) Eos # (Auto) Baso # (Auto) Immature Gran # (Auto) Sodium Potassium Chloride Carbon Dioxide Anion Gap BUN Creatinine Est Cr Clr Drug Dosing Est GFR ( Amer) Est GFR (Non-Af Amer) BUN/Creatinine Ratio Glucose POC Glucose 85 Calcium Phosphorus Total Bilirubin AST ALT Alkaline Phosphatase Total Protein Albumin Globulin Albumin/Globulin Ratio Hep Bs Antigen Hep Bs Ag Confirmation Hep Bs Antibody, Quant PG Care Time/CCT Total # of Minutes Spent Total Time Spent with Patient: Total time spent is greater than 50% in coordination of care (as documented) at patient's floor/unit and/or counseling patient: Coding Level of Care Code 07927 SUB INP/OBS CARE 3/50MIN Diagnoses ESRD (end stage renal disease) N18.6 Hypercalcemia E83.52 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
[2023-09-16] MEDS: HEPARIN SOD 5,000 UNIT/0.5 ML VIAL SQ SCH ×2 (11:32→20:00)
[2023-09-16] MEDS: LIDOCAINE 5% 1 PATCH TD SCH (13:23)
[2023-09-16] MEDS: ACETAMINOPHEN 325 MG TAB PO SCH ×3 (13:35→20:00)
[2023-09-16] MEDS: FUROSEMIDE 40 MG TAB PO SCH ×2 (13:35→18:47)
--- NOTE | 2023-09-16 15:11 | Pharmacy Report ---
Pharmacy Glycemic Short Note 2 - Date of Service September 16, 2023 - Glycemic Short BSG Results (Last 24 hours): 09/15/23 09/15/23 09/16/23 16:51 20:10 05:32 Glucose 83 POC Glucose 102 H 103 H 09/16/23 09/16/23 09/16/23 05:41 08:21 12:37 Glucose POC Glucose 81 85 82 OUTPATIENT ANTIDIABETIC REGIMEN: * Lantus 10 units BID * Novolog CR 2, CF 18 if BSG >200 * HbA1C unreliable due to ESRD ASSESSMENT: 09/16 * Pauline received 16 units of insulin yesterday of which 13 were basal * Fasting BSG this AM below goal range, NPO since midnight for scheduled kryoplasty today. Minimal carbohydrate intake documented yesterday. Basal insulin decreased slightly yesterday AM due to low BSGs and then held due to NPO. Will order a loose scale for basal insulin to account for low BSGs and addition of diet again after surgery. * Novolog loosened due to most BSGs below goal range. 09/14 * Pauline is a 73 YOF admitted for intractable back pain secondary to metastatic breast cancer to the lumbar spine. Pauline has a history of T2DM. Pharmacy has been consulted for glycemic management while inpatient. She is known to the glycemic service. * Lantus 14 units BID initiated last night as well as Novolog * Fasting BSG slightly elevated this AM, will continue current regimen at this time since she is already ordered 40% more than home basal regimen. Reassess basal insulin tomorrow. Previously she has required 20 to 25 units of Lantus BID with and without steroids. * She is receiving 10mg prednisone daily and has ESRD. Will adjust cautiously and monitor for insulin accumulation. * Previously has required a carbohydrate ratios between 5 to 7. Will tighten carbohydrate ratio to previous requirements. PLAN FOR INPATIENT GLYCEMIC CONTROL: * Hold outpatient oral diabetes medications * Basal insulin * Lantus 14 units SQ BID * Bolus insulin * NovoLog per scale ACHS or Q6hrs while NPO * Goal Range: Low 110 mg/dL - High 140 mg/dL * Correction Factor: 30 mg/dL/unit * Nutritional / Prandial insulin per carb ratio of 1 unit per 8 grams CHO consumed
--- NOTE | 2023-09-16 15:31 | History & Physical Bridge Note ---
Date of Service September 16, 2023 History & Physical Bridge Note I have examined the patient, reviewed the History & Physical and in the interval since the performance of the History & Physical I have noted the following changes of clinical significance: Patient is struggling with continued incapacitating thoracolumbar back pain. Plan is for kyphoplasty of L1 and L2.
[2023-09-16] MEDS ORDERED: DEXTROSE 5% 500 ML IV SCH (15:45)
[2023-09-16] MEDS ORDERED: CLINDAMYCIN/D5W 900 MG/50 ML BAG IV SCH (15:50)
[2023-09-16] MEDS ORDERED: ONDANSETRON INJ 2 MG/ML 2 ML VIAL IV PRN (15:55)
[2023-09-16] MEDS ORDERED: ATROPINE SULFATE 0.1 MG/ML 10ML SYR IV PRN (15:55)
[2023-09-16] MEDS ORDERED: ePHEDrine sulfate 50 MG/ML AMP IV PRN (15:55)
[2023-09-16] MEDS ORDERED: BUPIVACAINE/EPINEPHRINE 0.25% 1:200,000 30 ML VIAL ONE (15:56)
[2023-09-16] MEDS ORDERED: fentaNYL citrate PF 100 MCG/2 ML VIAL ONE (15:57)
[2023-09-16] MEDS ORDERED: PROPOFOL IV EMULSION 10 MG/ML 20 ML VIAL IV ONE (16:49)
[2023-09-16] MEDS ORDERED: PHENYLEPHRINE 100MCG/ML 10ML SYR IV ONE (16:49)
[2023-09-16] MEDS ORDERED: LIDOCAINE 2% 2 ML VIAL/AMP(20MG/ML) INFIL ONE (16:49)
[2023-09-16] MEDS ORDERED: ROCURONIUM BROMIDE 10 MG/ML 5 ML VIAL IV ONE (16:49)
[2023-09-16] MEDS ORDERED: SUGAMMADEX SODIUM 200 MG/2 ML VIAL IV ONE (16:49)
[2023-09-16] MEDS ORDERED: ePHEDrine sulfate 50 MG/5 ML SYR ONE (16:49)
[2023-09-16] MEDS ORDERED: ONDANSETRON INJ 2 MG/ML 2 ML VIAL ONE (16:49)
--- NOTE | 2023-09-16 16:59 | Billing Data ---
Date of Service September 16, 2023 Coding Level of Care Code 72084 SUB INP/OBS CARE
--- NOTE | 2023-09-16 17:12 | Operative Report ---
Post Operative Report Pre & Post Diagnosis Operation Date: 09/16/23 07:00 Pre-Op Diagnosis: 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 Post-Op Diagnosis: 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 I identified the patient and participated in the time-out.: Yes Procedure Operation Date: 09/16/23 07:00 Actual Procedures #1 kyphoplasty of the L1 and L2 vertebral bodies. #2 biopsy of L1 and L2 vertebral bodies. Surgeon Ross Adame, Scanning Manager None Estimated Blood Loss 5 Findings Consistent with Post-Op Diagnosis Specimens Biopsies of L1 and L2 vertebral body Indications This is a 73-year-old female who presents above-mentioned diagnosis. She is in significant pain and is here for stabilization and biopsy. Description of Procedure Patient was met with identified informed consent obtained. Patient was then taken to the operative suite underwent patient placed in a prone position on the Juan M table with a chest pad and hip bolsters. All bony prominences well- padded eyes inspected to ensure no external pressure placed upon the. This point the thoracolumbar spine was prepped and draped in a sterile fashion. With the assistance of fluoroscopy in AP and lateral planes identified the L1 and L2 vertebral bodies. Beginning with L1-2 small incisions were placed just lateral to the pedicles and 2 Kyphon working cannulas were placed by way of a transpedicular approach into the vertebral body. 2 core biopsies obtained. I then inserted 20 mm Kyphon balloons and sequentially inflated them under fluoroscopic visualization. They were subsequently removed and approximately 10 cc of Kyphon cement injected into the vertebral body demonstrated excellent interdigitation and fill. The working apparatus was removed and I approach the L2 vertebral body. 2 small incisions were placed just lateral to the pedicles and again the working cannulas placed by way of a transpedicular approach into the vertebral body. 2 core biopsies were obtained followed by the balloons being placed within the vertebral body and sequentially inflated with fluoroscopic visualization. Subsequently removed and approximately 4-1/2 cc of Kyphon cement injected into the L2 vertebral body demonstrating excellent interdigitation and fill. After this was complete the working cannulas removed all incisions closed with subcutaneous Monocryl and sterile dressings placed. Patient was then awakened and taken to PACU stable condition I attest to the content of the Intraoperative Record and any orders documented therein. Any exceptions are noted below.
[2023-09-16] MEDS: fentaNYL citrate PF 100 MCG/2 ML VIAL IV PRN ×4 (17:39→17:54)
[2023-09-16] MEDS: HYDROmorphone INJ 1 MG/ML SYRINGE IV PRN ×2 (18:08→18:13)
--- NOTE | 2023-09-16 18:11 | Electrocardiogram Report ---
Test Reason : Blood Pressure : / mmHG Vent. Rate : 078 BPM Atrial Rate : 078 BPM P-R Int : 296 ms QRS Dur : 120 ms QT Int : 426 ms P-R-T Axes : 000 064 231 degrees QTc Int : 485 ms Poor data quality, interpretation may be adversely affected Sinus rhythm with 1st degree A-V block Left bundle branch block Abnormal ECG When compared with ECG of 14-DEC-2022 16:02, 1st degree AV block has replaced Mobitz I Confirmed by Hill Garrett ([id number]) on 09/16/2023 6:10:57 PM Referred By: REFERRED SELF Confirmed By:Hill Garrett
--- NOTE | 2023-09-16 18:24 | Anesthesiology Progress Note ---
Date of Service September 16, 2023 Anesthesia Post Procedure Vital Signs Vital Signs: Temp Pulse Pulse Pulse Pulse Resp BP 09/16/23 18:15 72 12 09/16/23 18:05 70 14 09/16/23 17:55 68 13 09/16/23 17:45 65 15 09/16/23 17:35 63 16 09/16/23 17:26 36.2 C L 61 12 09/16/23 17:12 65 09/16/23 15:13 36.7 C 66 20 09/16/23 12:39 36.7 C 69 17 09/16/23 12:17 36.4 C L 62 09/16/23 11:30 62 167/74 H 09/16/23 11:00 76 168/71 H 09/16/23 10:45 09/16/23 10:30 67 165/87 H 09/16/23 10:00 67 171/83 H 09/16/23 09:30 74 169/69 H 09/16/23 09:07 72 164/73 H 09/16/23 08:56 36.9 C 74 09/16/23 07:40 36.6 C 57 L 19 09/16/23 07:30 56 L 09/16/23 03:43 36.4 C L 55 L 16 09/15/23 23:35 36.7 C 62 18 09/15/23 22:56 09/15/23 21:59 51 L 09/15/23 20:07 36.6 C 47 L 17 BP BP Pulse Ox O2 Del Method O2 Flow Rate 09/16/23 18:15 128/50 L 98 Nasal Cannula 2 09/16/23 18:05 123/57 L 96 Nasal Cannula 2 09/16/23 17:55 143/52 H 94 Nasal Cannula 2 09/16/23 17:45 144/55 H 94 Room Air 09/16/23 17:35 144/54 H 97 Oxymask 4 09/16/23 17:26 148/39 H 100 Oxymask 6 09/16/23 17:12 09/16/23 15:13 124/52 L 93 Room Air 09/16/23 12:39 124/54 L 95 Room Air 09/16/23 12:17 182/81 H 09/16/23 11:30 09/16/23 11:00 09/16/23 10:45 Room Air 09/16/23 10:30 09/16/23 10:00 09/16/23 09:30 09/16/23 09:07 09/16/23 08:56 09/16/23 07:40 185/71 H 100 Nasal Cannula 2 09/16/23 07:30 09/16/23 03:43 155/74 H 100 Nasal Cannula 2 09/15/23 23:35 134/74 99 Room Air 09/15/23 22:56 Nasal Cannula 2 09/15/23 21:59 09/15/23 20:07 120/61 98 Nasal Cannula 2 Pain Intensity Back: Pain Intensity: 10 Transfer of Care Handoff Completed per policy Notes Mental Status: alert / awake / arousable Patient Amnestic to Procedure: Yes Nausea / Vomiting: adequately controlled Pain: adequately controlled Airway Patency, RR, SpO2: stable & adequate BP & HR: stable & adequate Hydration State: stable & adequate Anesthetic Complications: no major complications apparent and Pt Satisfied with anesthetic care
[2023-09-16] MEDS: VENLAFAXINE HCL XR 75 MG CAPXR PO SCH (18:35)
[2023-09-16] MEDS: predniSONE 10 MG TABLET PO SCH (18:35)
[2023-09-16] MEDS: METOPROLOL SUCC 25MG EXT REL TAB PO SCH (18:35)
[2023-09-16] MEDS: allopurinoL 100 MG TAB PO SCH (18:35)
--- NOTE | 2023-09-16 19:04 | Electrocardiogram Report ---
Test Reason : Blood Pressure : / mmHG Vent. Rate : 063 BPM Atrial Rate : 084 BPM P-R Int : 244 ms QRS Dur : 120 ms QT Int : 392 ms P-R-T Axes : 000 057 231 degrees QTc Int : 401 ms Poor data quality, interpretation may be adversely affected Sinus rhythm with 1st degree A-V block with PACs Left bundle branch block Abnormal ECG When compared with ECG of 13-SEP-2023 17:36, No significant change Confirmed by Hill Garrett ([id number]) on 09/16/2023 7:04:17 PM Referred By: REFERRED SELF Confirmed By:Hill Garrett
--- NOTE | 2023-09-16 19:41 | Fluoroscopy Report ---
FL lumbar spine 2-3V CLINICAL HISTORY: L1-L2 KYPHOPLASTY TECHNIQUE: 2 views were obtained with the C-arm in the OR with the above procedure. Total fluoroscopy time was 228.2 seconds. Radiation dose was 220.79 mGy. Comparison: Comparison is made to CT lumbar spine 09/13/2020 FINDINGS/IMPRESSION: Intraoperative images were obtained of L1-L2 with kyphoplasty. Please correlate with intraoperative fluoroscopy and operative report. ACT 112: Negative or not required by law. Electronically signed by: Zack Otoole M.D. 09/16/2023 7:40 PM
[2023-09-16] MEDS: LANTUS PER UNIT CHARGE SQ SCH (21:05)
[2023-09-17] MEDS: traMADol HCL 50 MG TABLET PO PRN ×2 (00:24→22:14)
[2023-09-17] MEDS: HYDROmorphone INJ 0.5 MG/0.5 ML SYR IV PRN ×2 (01:15→09:02)
[2023-09-17 07:44] LABS: Albumin Globulin Ratio 0.8 (0.9-2); Albumin Level 2.9 gm/dl (3.4-5.0); BUN Creatinine Ratio 8.9 (10-20); Bilirubin,Total 0.6 mg/dl (0.2-1.0); Calcium 10.3 mg/dl (8.6-10.3); Est GFR (African American) 19.3 ml/min; Est GFR (Non-African American) 16.6 ml/min; Globulin 3.6 gm/dl (2.5-4.0); Phosphorus 4.6 mg/dl (2.5-4.9); Potassium 3.7 mmol/L (3.5-5.1); Total Protein 6.5 gm/dl (6.0-8.3)
--- NOTE | 2023-09-17 08:28 | Hospitalist Progress Note ---
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 Will continue tramadol 50 mg p.o. q6h as needed for pain - Lidocaine 5% patch daily - For breakthrough pain: >Acetaminophen 650 mg p.o. q4h as needed for pain 1-3/fever >Dilaudid 0.5 mg IV q4h for pain 4-6 >Dilaudid 1 mg IV q4h for pain 7-10 - Miralax powder daily as needed for opioid-induced constipation - Zofran 4 mg IV q4h as needed for nausea - Radiation oncology consulted: To perform palliative radiation x5 therapies Will stay in the hospital until 5 therapies completed - Ortho spine consulted: POD#1 s/p kyphoplasty with improvement in pain level (2) Breast cancer: Plan: - Dx in 2020; now metastatic to spine - Follows with [facility] - Fulvestrant given earlier in hospital course - Oncology consulted for hypercalcemia of malignancy biopsy taken during kyphoplasty, results pending Hypercalcemia -- likely due to malignancy; cannot use bisphosphonates due to ESRD; regular dialysis would help; leave trial of denosumab and further management to primary oncologist in [facility] in [facility] (3) Hypercalcemia: Plan: - Ca 12.9 on arrival. Level 10.3 today. - Likely secondary to metastatic cancer; not on bisphosphonates given renal function - Patient's hypercalcemia was being managed with her prednisone 5 mg daily; being taken for granulomatous disease, refractory hypercalcemia; recently increased to 10 mg daily - Continue prednisone 10 mg daily (4) ESRD (end stage renal disease): Plan: - HD on , and Fr - Potassium today 3.7 - Nephrology consulted: HD during admission (5) Type 2 diabetes mellitus: Plan: - Last A1c at 5.4% on 01/17/2023 - On insulin glargine 10 units BID at home, per POA (Adele) - basal bolus insulin - Adjust regimen as needed (6) HTN (hypertension): Plan: - Continue metoprolol (7) MCKENZIE (nonalcoholic steatohepatitis): Plan: - Chronic; stable; mildly elevated alk phos - Otherwise LFTs WNL; continue to monitor (8) Asymptomatic bacteriuria: Plan: - In the setting of ESRD - UA positive on arrival - Urine culture with high counts of 3 organisms. Will not repeat since patient has not c/o dysuria or urinary symptoms (9) (HFpEF) heart failure with preserved ejection fraction: Plan: - Continue Lasix Plan Disposition: If stable and circumstances don't change, discharge after palliative therapies are completed (x5) Full code T2DM, dialysis renal diet VTE PPx: SCDs, heparin 5000u SQ q12h Admission and Anticipated Discharge Date Admission Date: September 13, 2023 Supervising Physician Co-Signing Physician Notes I personally examined the patient and verified all barrett points of history and exam, discussed case, and agree with decision making with Dr Mccallum pain much better. out of bed. hopeful for home tomorrow. Vitals noted, in g eneral pleasant seems a little easily distracted but no pain no distress no respiratory distress no respiratory suppression. Breathing unlabored no accessory muscle use good effort. Skin without rashes pallor or icterus. Neuro without focal deficits. Intractable lower back pain - concern for metastatic spread with L1 compression fracture. now post kypho and doing much better - activity progressing, likely will be safe/stable for home tomorrow - has home tramadol. Hypercalcemia - Certainly concerning for malignancy related, although she also carries a baseline of granulomatous disease. Follow- now stable. Appreciate nephrology and hematology input. ESRD on dialysis - Ongoing HD DVT prophylaxisheparin subcu. Otherwise as above, hopefully home tomorrow Subjective 73 y/o female with PMHx of Breast cancer with mets to lumbar spine who was admitted due to intractable back pain that was rated a 10/10 in intensity. Patient evaluated at bedside this morning, notes overall improvement in back pain s/p kyphoplasty. Notes that pain is still enough that she feels the need for Dilaudid but at a lower dose than pre-op. Denies CP/SOB. Review of Systems Review of Systems: as per HPI Physical Exam Physical Exam: General: Alert and oriented. No acute distress, patient resting comfortably in bed Cardiac: Regular rate and rhythm, no murmurs appreciated Respiratory: Lungs clear to auscultation bilaterally, No increased work of breathing Abdominal: Soft, non-tender, non-distended. Bowel sounds present. Results & Data Results & Data Vital Signs (Past 12 Hours) Vital Signs Temp Pulse Pulse Resp BP Pulse Ox O2 Del Method 09/17/23 07:26 Room Air 09/17/23 03:15 36.5 C 76 18 130/49 L 100 Nasal Cannula 09/16/23 23:57 36.6 C 72 18 110/53 L 96 Nasal Cannula 09/16/23 23:13 59 L 09/16/23 20:45 Nasal Cannula O2 Flow Rate 09/17/23 07:26 09/17/23 03:15 1 09/16/23 23:57 1 09/16/23 23:13 09/16/23 20:45 2 Resident Activity Tracking Resident Involvement: Resident Care Provided Care Provided: Adult Hospital Medicine (2) Breast cancer Breast location: unspecified site of breast Estrogen receptor status: unspecified Laterality: left Patient sex: female Qualified Code(s): C50.912 - Malignant neoplasm of unspecified site of left female breast
[2023-09-17] MEDS: LANTUS PER UNIT CHARGE SQ SCH ×2 (08:48→21:07)
[2023-09-17] MEDS: INSULIN ASPART PER UNIT CHARGE SC SCH ×4 (08:50→21:06)
[2023-09-17] MEDS: HEPARIN SOD 5,000 UNIT/0.5 ML VIAL SQ SCH ×2 (08:51→20:06)
[2023-09-17] MEDS: LIDOCAINE 5% 1 PATCH TD SCH (08:51)
[2023-09-17] MEDS: allopurinoL 100 MG TAB PO SCH (09:03)
[2023-09-17] MEDS: ACETAMINOPHEN 325 MG TAB PO SCH ×3 (09:03→20:05)
[2023-09-17] MEDS: FUROSEMIDE 40 MG TAB PO SCH ×2 (09:04→16:16)
[2023-09-17] MEDS: VENLAFAXINE HCL XR 75 MG CAPXR PO SCH (09:04)
[2023-09-17] MEDS: METOPROLOL SUCC 25MG EXT REL TAB PO SCH (09:04)
[2023-09-17] MEDS: predniSONE 10 MG TABLET PO SCH (09:05)
--- NOTE | 2023-09-17 10:32 | Orthopedic Progress Note ---
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 Admission and Anticipated Discharge Date Admission Date: September 13, 2023 Subjective Back pain markedly improved. Physical Exam Physical Exam: Patient is sitting up in bed. She is comfortable. She is neurologically intact. Results & Data Vital Signs (Past 12 Hours) Vital Signs Temp Pulse Pulse Resp BP Pulse Ox O2 Del Method 09/17/23 09:13 94 Room Air 09/17/23 08:00 79 09/17/23 07:26 Room Air 09/17/23 07:00 36.4 C L 77 20 135/59 L 96 Nasal Cannula 09/17/23 03:15 36.5 C 76 18 130/49 L 100 Nasal Cannula 09/16/23 23:57 36.6 C 72 18 110/53 L 96 Nasal Cannula 09/16/23 23:13 59 L O2 Flow Rate 09/17/23 09:13 09/17/23 08:00 09/17/23 07:26 09/17/23 07:00 1 09/17/23 03:15 1 09/16/23 23:57 1 09/16/23 23:13
--- NOTE | 2023-09-17 13:21 | Nephrology Progress Note ---
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 She presented to ER with two weeks h/o progressively worsening of low back pain. LS spine CT revealed fracture of L1 vertebral body with radiolucency concerning for lytic disease/pathologic fracture. Ca was 12.0, BUN/Cr 53/4.5. History of repeated episodes of hypercalcemia possibly se condary to malignancy, has been on tapered dose of prednisone for hypercalcemia with a prior history of suboptimal response to Prolia. She had kyphoplasty of L1 and L2 as well as biopsy on . Had dialysis yesterday. Calcium this morning to 10.3. Blood pressure, volume status and respiratory status seems acceptable. -- Continue to monitor over the weekend for any need for urgent dialysis. Going forward she should continue on 3 times weekly dialysis which should also help with calcium. -- Epogen with dialysis as needed Admission and Anticipated Discharge Date Admission Date: September 13, 2023 Subjective Pauline was seen and evaluated this morning. She was somewhat sleepy and lethargic however woke up and answered questions appropriately. Reported improvement in her back pain. P.o. intake has been poor. Had dialysis yesterday. Electrolyte acceptable. Calcium improved to 10.3. Review of Systems Review of Systems: Detailed review of system was otherwise unremarkable. Physical Exam Constitutional: WD/WN, vitals as above + ill appearing; no acute distress Respiratory: Auscultation: lungs clear to auscultation bilaterally Cardiovascular: RRR, no murmur, no edema Skin: no rashes, warm and dry Neurologic: no focal motor deficits Psychiatric: Orientation: alert and oriented x 3 Results & Data Vital Signs (Past 12 Hours) Vital Signs Temp Pulse Pulse Resp BP Pulse Ox O2 Del Method 09/17/23 12:00 36.6 C 83 18 124/60 97 Room Air 09/17/23 09:13 94 Room Air 09/17/23 08:00 79 09/17/23 07:26 Room Air 09/17/23 07:00 36.4 C L 77 20 135/59 L 96 Nasal Cannula 09/17/23 03:15 36.5 C 76 18 130/49 L 100 Nasal Cannula O2 Flow Rate 09/17/23 12:00 09/17/23 09:13 09/17/23 08:00 09/17/23 07:26 09/17/23 07:00 1 09/17/23 03:15 1 PG Care Time/CCT Total # of Minutes Spent Total Time Spent with Patient: Total time spent is greater than 50% in coordination of care (as documented) at patient's floor/unit and/or counseling patient: Coding Level of Care Code 40455 SUB INP/OBS CARE 2/35MIN Diagnoses ESRD (end stage renal disease) N18.6 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
--- NOTE | 2023-09-17 18:03 | Billing Data ---
Date of Service September 17, 2023 Coding Level of Care Code 63853 SUB INP/OBS CARE
[2023-09-18 06:11] LABS: Hematocrit (blood only) 32.1 % (37.0-47.0); Mean Corpuscular Hgb Conc 31.2 g/dL (32.0-36.0); Mean Corpuscular Volume 105.9 fL (80.0-100.0); Mean Platelet Volume 10.4 fL (9.4-12.4); Platelet Count 188 K/uL (130-400); RDW Coefficient of Variation 14.8 % (11.5-14.5); RDW Standard Deviation 57.8 fL (36.4-46.3); Red Blood Count 3.03 M/uL (4.20-5.40); White Blood Count 7.67 K/ul (4.8-10.8)
[2023-09-18 06:30] LABS: Albumin Globulin Ratio 0.8 (0.9-2); Albumin Level 3.1 gm/dl (3.4-5.0); BUN Creatinine Ratio 10.1 (10-20); Bilirubin,Total 0.6 mg/dl (0.2-1.0); Calcium 10.8 mg/dl (8.6-10.3); Creatinine Clr Calc Pharmacy 16.5 ml/min; Est GFR (African American) 15.3 ml/min; Est GFR (Non-African American) 13.2 ml/min; Globulin 3.9 gm/dl (2.5-4.0); Potassium 3.8 mmol/L (3.5-5.1)
--- NOTE | 2023-09-18 06:53 | Hospitalist Progress Note ---
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 Will continue tramadol 50 mg p.o. q6h as needed for pain - Lidocaine 5% patch daily - For breakthrough pain: >Acetaminophen 650 mg p.o. q4h as needed for pain 1-3/fever >Dilaudid 0.5 mg IV q4h for pain 4-6 >Dilaudid 1 mg IV q4h for pain 7-10 - Miralax powder daily as needed for opioid-induced constipation - Zofran 4 mg IV q4h as needed for nausea - Radiation oncology consulted: To perform palliative radiation x5 therapies Will stay in the hospital until 5 therapies completed - Ortho spine consulted: POD#1 s/p kyphoplasty with improvement in pain level (2) Breast cancer: Plan: - Dx in 2020; now metastatic to spine - Follows with [facility] - Fulvestrant given earlier in hospital course - Oncology consulted for hypercalcemia of malignancy biopsy taken during kyphoplasty, results pending Hypercalcemia -- likely due to malignancy; cannot use bisphosphonates due to ESRD; regular dialysis would help; leave trial of denosumab and further management to primary oncologist in [facility] in [facility] (3) Hypercalcemia: Plan: - Ca 12.9 on arrival. Level 10.3 today. - Likely secondary to metastatic cancer; not on bisphosphonates given renal function - Patient's hypercalcemia was being managed with her prednisone 5 mg daily; being taken for granulomatous disease, refractory hypercalcemia; recently increased to 10 mg daily - Continue prednisone 10 mg daily (4) ESRD (end stage renal disease): Plan: - HD on , and Fr - Potassium today 3.7 - Nephrology consulted: HD during admission (5) Type 2 diabetes mellitus: Plan: - Last A1c at 5.4% on 01/17/2023 - On insulin glargine 10 units BID at home, per POA (Adele) - basal bolus insulin - Adjust regimen as needed (6) HTN (hypertension): Plan: - Continue metoprolol (7) MCKENZIE (nonalcoholic steatohepatitis): Plan: - Chronic; stable; mildly elevated alk phos - Otherwise LFTs WNL; continue to monitor (8) Asymptomatic bacteriuria: Plan: - In the setting of ESRD - UA positive on arrival - Urine culture with high counts of 3 organisms. Will not repeat since patient has not c/o dysuria or urinary symptoms (9) (HFpEF) heart failure with preserved ejection fraction: Plan: - Continue Lasix Plan Disposition: If stable and circumstances don't change, discharge after palliative therapies are completed (x5) Full code T2DM, dialysis renal diet VTE PPx: SCDs, heparin 5000u SQ q12h Admission and Anticipated Discharge Date Admission Date: September 13, 2023 Review of Systems Review of Systems: as per HPI Physical Exam Physical Exam: General: Alert and oriented. No acute distress, patient resting comfortably in bed Cardiac: Regular rate and rhythm, no murmurs appreciated Respiratory: Lungs clear to auscultation bilaterally, No increased work of breathing Abdominal: Soft, non-tender, non-distended. Bowel sounds present. Results & Data Results & Data Vital Signs (Past 12 Hours) Vital Signs Temp Pulse Pulse Resp BP BP Pulse Ox 09/18/23 03:22 36.6 C 75 18 145/72 H 94 09/18/23 00:45 36.7 C 74 18 127/64 96 09/17/23 22:36 83 09/17/23 21:14 09/17/23 19:49 36.5 C 79 18 135/51 L 97 O2 Del Method 09/18/23 03:22 Room Air 09/18/23 00:45 Room Air 09/17/23 22:36 09/17/23 21:14 Room Air 09/17/23 19:49 Room Air (2) Breast cancer Breast location: unspecified site of breast Estrogen receptor status: unspecified Laterality: left Patient sex: female Qualified Code(s): C50.912 - Malignant neoplasm of unspecified site of left female breast
[2023-09-18] MEDS: LANTUS PER UNIT CHARGE SQ SCH (08:48)
[2023-09-18] MEDS: HEPARIN SOD 5,000 UNIT/0.5 ML VIAL SQ SCH (08:48)
[2023-09-18] MEDS: LIDOCAINE 5% 1 PATCH TD SCH (08:49)
[2023-09-18] MEDS: ACETAMINOPHEN 325 MG TAB PO SCH (08:49)
[2023-09-18] MEDS: FUROSEMIDE 40 MG TAB PO SCH (08:50)
[2023-09-18] MEDS: predniSONE 10 MG TABLET PO SCH (08:50)
[2023-09-18] MEDS: METOPROLOL SUCC 25MG EXT REL TAB PO SCH (08:50)
[2023-09-18] MEDS: allopurinoL 100 MG TAB PO SCH (08:51)
[2023-09-18] MEDS: INSULIN ASPART PER UNIT CHARGE SC SCH ×2 (08:54→12:41)
--- NOTE | 2023-09-18 09:44 | Orthopedic Progress Note ---
Date of Service September 18, 2023 Assessment & Plan (1) 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: Plan At this time she can continue physical therapy. From an orthopedic standpoint she is stable to return home. She may shower today. Admission and Anticipated Discharge Date Admission Date: September 13, 2023 Subjective Back pain markedly improved. She is tolerating physical therapy. Physical Exam Physical Exam: Patient is in the chair at the bedside. She is neurologically intact. She is comfortable. Results & Data Vital Signs (Past 12 Hours) Vital Signs Temp Pulse Pulse Resp BP BP Pulse Ox 09/18/23 07:54 09/18/23 07:30 36.5 C 81 16 138/69 98 09/18/23 03:22 36.6 C 75 18 145/72 H 94 09/18/23 00:45 36.7 C 74 18 127/64 96 09/17/23 22:36 83 O2 Del Method 09/18/23 07:54 Room Air 09/18/23 07:30 Room Air 09/18/23 03:22 Room Air 09/18/23 00:45 Room Air 09/17/23 22:36 Queries Orthopedic Spine Obesity: Yes
[2023-09-18] MEDS: VENLAFAXINE HCL XR 75 MG CAPXR PO SCH (10:10)
--- NOTE | 2023-09-18 11:16 | Discharge Summary ---
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 She presented for intractable back pain x 2 weeks with acute worsening over the past couple days. She reports the pain is 10/10 at time of admission; acutely exacerbated while lying supine per CT scan. She is unable to lie supine. The pain is constant, positional. It radiates down to her thighs B/L, with it worse being on the right side. She has been taking tramadol 50 mg p.o. 12 tabs daily with minimal relief. She has not been eating much recently; loss of appetite. She sleeps in a recliner at night. She reports that she did not take her morning medications today; this includes not taking her long-acting insulin. Patient normally receives dialysis Tuesday for her ESRD, however she reports she has not been to her last 3 sessions due to inability to walk. 2 episodes of vomiting due to back pain, with 1 reportedly being in the ED after taking morphine. Patient reports she has a history of not responding well to morphine. She lives with her niece (Marely) who is present at the bedside and provides additional history. Patient's vitals are stable at time of admission. ED course: Morphine 4 mg x 2 Lidocaine 5% patch Acetaminophen 1000 mg IV ROS: Patient endorses intractable back pain, loss of appetite, nausea, vomiting x2 (on 09/11 and 09/13; which patient believes is secondary to pain), numbness/tingling in the groin region and both thighs. Patient denies fever, chills, sweating, GRAF, dizziness, lightheadedness, chest pain, SOB, pleuritic CP, abdominal pain, urinary incontinence, burning with urination, or dysuria. Spoke on the phone with patient's (Adele) and provided updates; confirmed code status and medications. Admission Exam Per Admitting Provider Physical Exam: General: Patient is in acute physical distress due to her back pain; gasping for breath; non-toxic appearing; cooperative HEENT: normocephalic, atraumatic; no scleral icterus; moist mucus membrane; vision and hearing grossly intact Neck: supple; no lymphadenopathy; trachea midline Skin: warm, dry without signs of tenting; no cyanosis; no rashes, bruising, lesions, or erythema noted CV: chest wall NTP; RRR; S1/S2 normal; no murmurs/rubs/gallops; pulses intact and symmetric at radial, DP, and PT Lungs: no acute respiratory distress; symmetrical chest wall expansion; clear breath sounds across all lung solis w/o adventitious sounds; no wheezing ABD: Soft, NTP; BS present; no rebound/guarding; mild distention secondary to body; no rashes or bruising noted on abdomen Back: Lower back TTP, extending around the flanks B/L; upper back/neck NTP MSK: no tics or fasciculations; nonpitting edema in the LEs B/L, with LLE slightly larger than right (patient attributes this to radha in her LLE) -nonerythematous; patient demonstrates ability to wiggle toes B/L Neuro: A&Ox3; normal mood and affect; fluent speech; no focal deficits; sensation grossly intact in the LEs B/L Principal Diagnosis back pain, secondary to metastatic breast cancer Discharge Exam Constitutional WD/WN, vitals as above no acute distress Respiratory normal respiratory effort, lungs clear to auscultation Cardiovascular RRR, no murmur, no edema Psychiatric A+Ox3, euthymic affect Discharge Data Allergies Allergy/AdvReac Type Severity Reaction Status Date / Time amoxicillin Allergy Severe LIPS Verified 06/28/23 13:29 SWELLED, "RED ALL OVER" doxycycline Allergy Severe LIPS Verified 06/28/23 13:29 SWELLED, "RED ALL OVER". cephalexin [From Keflex] Allergy Intermediate skin Verified 06/28/23 13:29 starts to peel off sulfamethoxazole Allergy Unknown Unknown Verified 06/28/23 13:29 [From Bactrim] trimethoprim [From Bactrim] Allergy Unknown Unknown Verified 06/28/23 13:29 atorvastatin AdvReac Intermediate Myalgia Verified 06/28/23 13:29 Consultations 09/13/23 17:44 ED Decision to Admit Stat 09/13/23 18:12 Consult Nephrology Routine 09/13/23 19:46 Consult Oncology Routine 09/13/23 20:30 Consult Radiation Oncology Routine 09/13/23 20:37 Consult Orthopedic Spine Surgery Routine Procedures Performed Operation Date: 09/16/23 07:00 Actual Procedures p L1-L2 Kyphoplasty(Not Applicable) - Ross Adame, Ordered Studies 09/13/23 15:19 CT lumbar spine wo con Stat 09/16/23 [place] lumbar spine 2-3V Routine Hospital Course (1) Intractable back pain: - Acute worsening of back pain x 2 weeks, in the setting of metastatic breast cancer to the lumbar spine - Lumbar spine CT revealed fracture of L1 concerning for lytic disease resulting in pathologic fracture; also fracture of superior endplate of L2 - History of poor response to morphine. Will continue tramadol 50 mg p.o. q6h as needed for pain - Lidocaine 5% patch daily - For breakthrough pain: >Acetaminophen 650 mg p.o. q4h as needed for pain 1-3/fever >Dilaudid 0.5 mg IV q4h for pain 4-6 >Dilaudid 1 mg IV q4h for pain 7-10 - Miralax powder daily as needed for opioid-induced constipation - Zofran 4 mg IV q4h as needed for nausea - Radiation oncology consulted: To perform palliative radiation x5 therapies Will stay in the hospital until 5 therapies completed - Ortho spine consulted: POD#1 s/p kyphoplasty with improvement in pain level (2) Breast cancer: - Dx in 2020; now metastatic to spine - [place] [facility] [place] given earlier in hospital course - Oncology consulted for hypercalcemia of malignancy biopsy taken during kyphoplasty, results pending Hypercalcemia -- likely due to malignancy; cannot use bisphosphonates due to ESRD; regular dialysis would help; leave trial of denosumab and further management to primary oncologist in [facility] in [facility] (3) Hypercalcemia: - Ca 12.9 on arrival. Level 10.3 today. - Likely secondary to metastatic cancer; not on bisphosphonates given renal function - Patient's hypercalcemia was being managed with her prednisone 5 mg daily; being taken for granulomatous disease, refractory hypercalcemia; recently increased to 10 mg daily - Continue prednisone 10 mg daily (4) ESRD (end stage renal disease): - HD on M, and Fr - Potassium today 3.7 - Nephrology consulted: HD during admission (5) Type 2 diabetes mellitus: - Last A1c at 5.4% on 01/17/2023 - On insulin glargine 10 units BID at home, per POA (Adele) - basal bolus insulin - Adjust regimen as needed (6) HTN (hypertension): - Continue metoprolol (7) MCKENZIE (nonalcoholic steatohepatitis): - Chronic; stable; mildly elevated alk phos - Otherwise LFTs WNL; continue to monitor (8) Asymptomatic bacteriuria: - In the setting of ESRD - UA positive on arrival - Urine culture with high counts of 3 organisms. Will not repeat since patient has not c/o dysuria or urinary symptoms (9) (HFpEF) heart failure with preserved ejection fraction: - Continue Lasix Plan (1) Intractable back pain: - Acute worsening of back pain x 2 weeks, in the setting of metastatic breast cancer to the lumbar spine - Lumbar spine CT revealed fracture of L1 concerning for lytic disease resulting in pathologic fracture; also fracture of superior endplate of L2 - Pain significantly improved s/p L1-2 kyphoplasty - Pt no longer needed Dilaudid at time of discharge, resume home pain medications as needed (2) Breast cancer: - Dx in 2020; now metastatic to spine - [place] [facility] [place] given during hospital course - Oncology consulted for hypercalcemia of malignancy biopsy taken during kyphoplasty, results pending Hypercalcemia -- likely due to malignancy; continued dialysis would help; consider trial of denosumab in the oupatient setting (3) Hypercalcemia: - Continue prednisone 10 mg daily for granulomatous disease, otherwise as above. (4) ESRD (end stage renal disease): Dialysis performed during hospital stay, last 09/16. Recommend continued outpatient hemodialysis (5) Type 2 diabetes mellitus: - Last A1c at 5.4% on 01/17/2023 - Continue home insuline (6) HTN (hypertension): - Continue metoprolol (7) MCKENZIE (nonalcoholic steatohepatitis): - Chronic; stable; mildly elevated alk phos - Otherwise LFTs WNL; continue to monitor in the outpatient setting (9) (HFpEF) heart failure with preserved ejection fraction: - Continue Lasix Total Time Total Time Spent Total Time Spent (In Minutes): see attending attestation Discharge Plan Discharge Items Patient Disposition: Home - Self-Care Reason For Visit: POST OP Discharge Diagnosis: s/p kyphoplasty Activity: As commented below Activity Comment: progress activity as tolerated Lifting: No more than 5 pounds Bathing: No limitations Non-emergency contact: Primary Care Provider Call non-emergency contact if: you have any medication questions and your pain is not controlled Follow-up/Referrals: Pat Alejandre MD [Primary Care Provider] - Diet: Carb Consistent or DM2 and Dialysis Renal Addtl Attending Provider Instructions: You were admitted to the hospital for: back pain due to compression fracture in your lumbar spine A discharge summary will be sent to your primary care physician to ensure continuity of care. Please bring this discharge summary with you to your next office appointment so that your provider can review it at that time. Medications: Your medication list has been reviewed and reconciled upon discharge to ensure accuracy and continuity of care. An updated list of all your medications is included with your hospital discharge paperwork. Please review this list closely and make note of any changes to your medications. No changes were made to your home medications. Follow up appointments: - Please follow-up in 2 weeks with orthopedic spine office for x-rays and postoperative evaluation. - Make a follow up appointment with your PCP within the next week. It is very important that you follow up with them shortly after discharge from the hospital. - Keep all of your follow up appointments as already scheduled. If you cannot make an appointment, notify your provider. CONTACT YOUR PRIMARY CARE PROVIDER if you experience any of the following: - Difficulty following your treatment plan - Difficulty taking any of your medications CALL 911 OR GO TO THE EMERGENCY DEPARTMENT if you experience any of the following: - Sudden, severe abdominal pain or nausea/vomiting - Severe chest pain or chest pain that radiates to your jaw or arm - Sudden, severe shortness of breath or difficulty breathing Pending Studies at Discharge: No Stand-Alone Forms: My [facility] reQwip, Smoking Cessation Medications and DC Order Prescriptions: Continued omega-3 fatty acids 1,000 mg capsule 2,000 mg PO BID Qty: 360 3RF prednisone 10 mg tablet 10 mg PO DAILY Qty: 30 3RF allopurinol 100 mg tablet 50 mg PO DAILY Qty: 45 3RF furosemide 40 mg tablet 40 mg PO BID Qty: 180 3RF insulin aspart U-100 [Novolog FlexPen U-100 Insulin] 100 unit/mL (3 mL) insulin pen See Rx Instructions SQ DIRECTED MDD 225 units Qty: 135 3RF Rx Instructions: Take with meals subcutaneously as directed; Carb ratio 1:2; Correction Factor 1:18 for BG > 200 metoprolol succinate 25 mg tablet extended release 24 hr 25 mg PO DAILY Qty: 90 3RF venlafaxine 75 mg capsule,extended release 24hr 75 mg PO DAILY Qty: 90 3RF (DME) pen needle, diabetic [BD Sheila 2nd Gen Pen Needle] 32 gauge x 5/32" needle See Rx Instructions .Route Qty: 600 3RF Rx Instructions: use up to 10 x daily for insulin injections tramadol 50 mg tablet 50 mg PO Q6H PRN (Reason: Pain) Qty: 30 1RF lidocaine 5 % adhesive patch,medicated 1 patch topical DAILY Qty: 30 1RF Rx Instructions: leave on most painful area for up to 12 hrs insulin glargine [Lantus Solostar U-100 Insulin] 100 unit/mL (3 mL) insulin pen 10 unit SQ BID Discharge Orders: Discharge Order (Routine); Ordered 09/18/23 Ordered By: Selwyn Mccallum Admission Data Admit Date/Time: 09/13/23 18:30 Attending Provider: Arie Allen Admit Provider: Phi Frank Primary Care Provider: Pat Alejandre Other Providers: Phi Frank; Jeromy Dominguez; Ai Gore; Lien Bower; Ross Adame Other Interventions: Discharge Summary Assessment (RN) Last Done: 09/18/23 11:56 Supervising Physician Co-Signing Physician Notes I personally examined the patient and verified all barrett points of history and exam, discussed case, and agree with decision making with Dr Mccallum pain much better. out of bed. Patient will be discharged today. Vitals noted, in general pleasant seems a little easily distracted but no pain no distress no respiratory distress no respiratory suppression. Breathing unlabored no accessory muscle use good effort. Skin without rashes pallor or icterus. Neuro without focal deficits. Intractable lower back pain - concern for metastatic spread with L1 compression fracture. now post kypho and doing much better - activity progressing, safe/stable for home today - has home tramadol. Hypercalcemia - Certainly concerning for malignancy related, although she also carries a baseline of granulomatous disease. Follow- now stable. Appreciate nephrology and hematology input. ESRD on dialysis - Ongoing HD Patient requesting to be discharged. Resident Activity Tracking Resident Involvement: Resident Care Provided Care Provided: [facility]
--- NOTE | 2023-09-18 11:55 | Nephrology Progress Note ---
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 She presented to ER with two weeks h/o progressively worsening of low back pain. LS spine CT revealed fracture of L1 vertebral body with radiolucency concerning for lytic disease/pathologic fracture. Ca was 12.0, BUN/Cr 53/4.5. History of repeated episodes of hypercalcemia possibly se condary to malignancy, has been on tapered dose of prednisone for hypercalcemia with a prior history of suboptimal response to Prolia. She had kyphoplasty of L1 and L2 as well as biopsy on . Had dialysis Tuesday. Calcium again 10.8 Blood pressure, volume status and respiratory status seems acceptable. -- Recommended going forward she should continue on 3 times weekly dialysis which should also help with calcium however she is planning to continue just twice a week. -- Epogen with dialysis as needed Admission and Anticipated Discharge Date Admission Date: September 13, 2023 Subjective Pauline was seen this morning. Overall she is feeling much better, back pain significantly improved. Denied shortness of breath. Blood pressure well- controlled. Electrolyte acceptable. Calcium improved. Review of Systems Review of Systems: Detailed review of system was otherwise unremarkable. Physical Exam Constitutional: WD/WN, vitals as above no acute distress Respiratory: Auscultation: lungs clear to auscultation bilaterally Cardiovascular: RRR, no murmur, no edema Skin: no rashes, warm and dry Neurologic: no focal motor deficits Psychiatric: Orientation: alert and oriented x 3 Results & Data Vital Signs (Past 12 Hours) Vital Signs Temp Pulse Resp BP BP Pulse Ox O2 Del Method 09/18/23 07:54 Room Air 09/18/23 07:30 36.5 C 81 16 138/69 98 Room Air 09/18/23 03:22 36.6 C 75 18 145/72 H 94 Room Air 09/18/23 00:45 36.7 C 74 18 127/64 96 Room Air PG Care Time/CCT Total # of Minutes Spent Total Time Spent with Patient: Total time spent is greater than 50% in coordination of care (as documented) at patient's floor/unit and/or counseling patient: Coding Level of Care Code 93050 SUB INP/OBS CARE 2/35MIN Diagnoses ESRD (end stage renal disease) N18.6 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
--- NOTE | 2023-09-23 10:45 | Billing Data ---
Date of Service September 18, 2023 Coding Level of Care Code 91654 INP/OBS DISCH >30 MIN Time Spent (min) 32
== END 2023-09-18 14:08 | disposition home or self-care (01) | DRG 477 ==
LOC: ED 13:59 → SUATTDRO 18:30 → EDINP 18:30 → 4W 21:00

== ENCOUNTER 2023-10-16 22:26 | Inpatient (IN) ==
[2023-10-16 23:17] LABS: Base Excess VBG 8.6 mEq/L; HCO3 VBG 34 mmol/L; Oxygen Saturation VBG < 60.0 %; PCO2 VBG 46 mmHg (38-50); PO2 VBG 21 mmHg; pH VBG 7.47 (7.36-7.41)
[2023-10-16 23:23] LABS: Basophils # (auto) 0.02 K/uL (0.00-0.20); Basophils % (auto) 0.2 %; Eosinophils # (auto) 0.03 K/uL (0.00-0.50); Eosinophils % (auto) 0.3 %; Hematocrit (blood only) 35.4 % (37.0-47.0); Hemoglobin 11.2 g/dl (12.0-16.0); Immature Granulocytes # (auto) 0.11 K/uL (0.01-0.20); Immature Granulocytes % (auto) 1.1 %; Lymphocytes # (auto) 0.94 K/uL (1.20-3.40); Lymphocytes % (auto) 9.3 %; Mean Corpuscular Hemoglobin 33.3 pg (25.0-34.0); Mean Corpuscular Hgb Conc 31.6 g/dL (32.0-36.0); Mean Corpuscular Volume 105.4 fL (80.0-100.0); Mean Platelet Volume 10.6 fL (9.4-12.4); Monocytes # (auto) 0.82 K/uL (0.11-0.59); Monocytes % (auto) 8.1 %; Neutrophils # (auto) 8.23 K/uL (1.40-6.50); Platelet Count 255 K/uL (130-400); RDW Coefficient of Variation 15.8 % (11.5-14.5); RDW Standard Deviation 61.1 fL (36.4-46.3); Red Blood Count 3.36 M/uL (4.20-5.40); White Blood Count 10.15 K/ul (4.8-10.8)
[2023-10-17] MEDS ORDERED: FUROSEMIDE 40 MG/4 ML VIAL IV ONE (00:01)
--- NOTE | 2023-10-17 00:02 | Emergency Department Note ---
ED Visit Note I was consulted by the Advanced Practice Provider. The case was discussed at length. I personally made/approved the management plan and take responsibility for the patient management. I performed a substantive portion of the visit. This includes the aspects of: Patient presents with some shortness of breath. She does receive occasional dialysis. She still makes urine and is on diuretics outpatient. Chest x-ray does show findings of heart failure. She was given IV diuretics here in the ER. Given her dyspnea, given her x-ray findings, given her past history, she does require a hospital stay. She may even require dialysis within the next 24 hours to offload some of the excess fluid. Case management has been contacted, the on-call hospitalist has been contacted. [-I independently interpreted the following studies:][Chest x-ray shows heart failure and cardiomegaly] .
[2023-10-17 00:11] LABS: Troponin I High Sensitivity 59.7 pg/ml (0-14)
[2023-10-17 00:20] LABS: Alanine Aminotransferase 19 U/L (7-52); Albumin Globulin Ratio 0.7 (0.9-2); Albumin Level 3.2 gm/dl (3.4-5.0); Alkaline Phosphatase 204 U/L (34-104); Anion Gap 9 (3-11); BUN Creatinine Ratio 9.6 (10-20); Bilirubin,Total 0.9 mg/dl (0.2-1.0); Blood Urea Nitrogen 32 mg/dl (6-23); Calcium 11.9 mg/dl (8.6-10.3); Carbon Dioxide 29 mmol/L (21-32); Chloride 95 mmol/L (98-107); Est GFR (African American) 14.8 ml/min; Est GFR (Non-African American) 12.8 ml/min; Globulin 4.6 gm/dl (2.5-4.0); Glucose 149 mg/dl (70-99(Fasting)); Magnesium 2.9 mg/dl (1.7-2.4); Potassium 3.9 mmol/L (3.5-5.1); Sodium 133 mmol/L (136-145); Total Protein 7.8 gm/dl (6.0-8.3)
[2023-10-17 00:30] LABS: Adenovirus PCR Not Detected (NotDetected); Bordetella parapertussis PCR Not Detected (NotDetected); Bordetella pertussis PCR Not Detected (NotDetected); Chlamydia pneumoniae PCR Not Detected (NotDetected); Coronavirus 229E PCR Not Detected (NotDetected); Coronavirus CoV-2 (COVID19)PCR Not Detected (NotDetected); Coronavirus HKU1 PCR Not Detected (NotDetected); Coronavirus NL63 PCR Not Detected (NotDetected); Coronavirus OC43PCR Not Detected (NotDetected); Human Metapneumovirus PCR Not Detected (NotDetected); Influenza A PCR Not Detected (NotDetected); Influenza B PCR Not Detected (NotDetected); Mycoplasma pneumoniae PCR Not Detected (NotDetected); Parainfluenza Virus 1 PCR Not Detected (NotDetected); Parainfluenza Virus 2 PCR Not Detected (NotDetected); Parainfluenza Virus 3 PCR Not Detected (NotDetected); Parainfluenza Virus 4 PCR Not Detected (NotDetected); Respiratory Syncytial VirusPCR Not Detected (NotDetected); Rhinovirus/Enterovirus PCR Not Detected (NotDetected)
[2023-10-17 00:36] LABS: Aspartate Aminotransferase 23 U/L (13-39)
--- NOTE | 2023-10-17 01:11 | History & Physical Report ---
Date of Service October 17, 2023 Assessment & Plan (1) Shortness of breath: Plan: 73yo female presenting with shortness of breath, mild hypoxia in the ER requiring supplemental O2. Likely secondary to volume overload. Patient with history of HFpEF as well as MCKENZIE and ESRD on HD. She still makes urine and was given Lasix 40mg IV -Admit to medical -Monitor UOP. If patient does not respond to Lasix 40mg IV can attempt 80mg IV -Daily weights and strict I/Os (2) ESRD (end stage renal disease): Plan: Metabolically appropriate. Patient is due for her routine dialysis today (Tuesday 10/17) -Nephrology consultation appreciated -Avoid nephrotoxic agents -Renal dosing where needed (3) Type 2 diabetes mellitus: Plan: Well controlled. Last [id number] -Lantus 10u BID, ISS -Goal blood sugar 110 - 140 (4) Breast cancer: Plan: Patient is s/p XRT - she is to followup in [place] for routine imaging in several months History of Present Illness Chief Complaint: shortness of breath Primary Care Provider: Pat Alejandre MD Pauline Beyer is a pleasant 73yo female with history of Breast cancer, HFpEF, HTN, HLP, MCKENZIE and ESRD on HD Tuesday and Tuesday. She presents tonight with shortness of breath that started yesterday. Symptoms have been progressive over the last day. She receives HD q Tuesday and Tuesday -reports that she still makes a normal amount of urine and the dialysis is for toxin removal rather than fluid. She follows with Dr. Solis. Last full treatment on Tuesday10/14/22. Patient mildly hypoxic in the ER at 88% on room air. She does not use oxygen at home. Was placed on 2L NC with improvement. No additional complaints - she denies fever, chills, chest pain, palpitations, abdominal pain, nausea, vomiting, diarrhea. Denies edema but has had some orthopnea. ER Course: Lasix 40mg IV Allergies Allergy/AdvReac Type Severity Reaction Status Date / Time amoxicillin Allergy Severe LIPS Verified 06/28/23 13:29 SWELLED, "RED ALL OVER" doxycycline Allergy Severe LIPS Verified 06/28/23 13:29 SWELLED, "RED ALL OVER". cephalexin [From Keflex] Allergy Intermediate skin Verified 06/28/23 13:29 starts to peel off sulfamethoxazole Allergy Unknown Unknown Verified 06/28/23 13:29 [From Bactrim] trimethoprim [From Bactrim] Allergy Unknown Unknown Verified 06/28/23 13:29 atorvastatin AdvReac Intermediate Myalgia Verified 06/28/23 13:29 Home Medications Medication Instructions Recorded Confirmed Type omega-3 fatty acids 1,000 mg 2,000 mg (2 x 1,000 mg) PO BID 07/19/22 10/16/23 Rx capsule #360 caps allopurinol 100 mg tablet 50 mg (1/2 x 100 mg) PO DAILY #45 06/28/23 10/16/23 Rx tabs furosemide 40 mg tablet 40 mg PO BID #180 tabs 06/28/23 10/16/23 Rx insulin aspart U-100 100 unit/mL See Rx Instructions subcut 06/28/23 10/16/23 Rx (3 mL) subcutaneous pen (Novolog DIRECTED #135 mL FlexPen U-100 Insulin aspart) lidocaine 5 % topical patch 1 patch topical DAILY #30 ea 06/28/23 10/16/23 Rx metoprolol succinate 25 mg 25 mg PO DAILY #90 tabs 06/28/23 10/16/23 Rx tablet,extended release 24 hr pen needle, diabetic 32 gauge x #600 ea 06/28/23 10/16/23 Rx 5/32" (BD Sheila 2nd Gen Pen Needle) venlafaxine 75 mg capsule,extended 75 mg PO DAILY #90 caps 06/28/23 10/16/23 Rx release 24 hr prednisone 10 mg tablet 10 mg PO DAILY #30 tabs 09/06/23 10/16/23 Rx insulin glargine 100 unit/mL (3 10 unit subcut BID 09/13/23 10/16/23 History mL) subcutaneous pen (Lantus Solostar U-100 Insulin) mirtazapine 7.5 mg tablet 7.5 mg PO HS #30 tabs 10/05/23 10/16/23 Rx ondansetron HCl 4 mg tablet 4 mg PO Q4H PRN nausea and 10/05/23 10/16/23 Rx vomiting #30 tabs oxycodone 5 mg tablet 5 mg PO Q4H PRN pain #30 tabs 10/05/23 10/16/23 Rx tramadol 50 mg tablet 50 mg PO Q6 PRN Pain 10/16/23 10/16/23 History 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 (~09/13/23) Intractable back pain CKD (chronic kidney disease) stage V requiring chronic dialysis Elevated troponin Anemia Iron deficiency anemia (HFpEF) heart failure with preserved ejection fraction Mobitz type 1 second degree AV block Breast cancer diagnosed 2020 Statin myopathy Hyperuricemia Crystal arthropathy Candidal intertrigo Chronic stasis dermatitis Dyslipidemia Seborrheic dermatitis Type 2 diabetes mellitus HTN (hypertension) GERD (gastroesophageal reflux disease) MCKENZIE (nonalcoholic steatohepatitis) Surgical History History of tonsillectomy and adenoidectomy Hx of cholecystectomy History of appendectomy Humerus fracture surgical repair Family History Father Depression Diabetes Mother Hypertension Kidney stones Gallbladder disease Denies family history of Ovarian cancer Prostate cancer Myocardial infarction Breast cancer Colorectal cancer Social History Smoking Status: Never smoker Second Hand Exposure: No; Do You Dip or Chew Tobacco: No; Hx Alcohol Use: No Hx Substance Use: No Preferred Language: Nauruan Communication Ability: Effective Visual Impairment: Limited Hearing Ability: Normal Building Specialist Required: No Beliefs That Will Affect Care: None marital status: Current Living Situation: Spouse 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 Feels Safe at Home: Yes Childhood Exposure to Second-Hand Smoke: No Diet: regular Dental Care, Regularly: Yes Physical Activity Frequency: Does not Exercise Seatbelt Use: never Sunscreen Use: No Assistive Devices: Bedside Commode, Cane, Scooter/Electric Scooter and Walker Review of Systems Review of Systems: All systems reviewed & are unremarkable except as noted in HPI & below Physical Exam Physical Exam: General: patient resting comfortably, NAD, non-toxic in appearance, AA&O x 4 Skin: warm, dry, intact, no rashes or lesions HEENT: NC/AT, PERRL, EOMI, anicteric sclera, conjunctiva without injection, external ear normal to inspection and nontender, nares patent, moist mucus membranes, dentition intact, no oropharyngeal lesions, neck supple, trachea midline, no LAD, no thyromegaly, no JVD Heart: +S1/S2, regular, no m/r/g, right chest perm-cath in place Lungs: equal air entry bilaterally, crackles in bilateral bases Abd: +BS, soft, NT/ND, no masses/organomegaly/ascites Ext: warm, 2+ pulses in UE/LE bilaterally, no clubbing/cyanosis or edema Neuro: nonfocal, patient AA&O x 4, speech intact, no facial droop, moving all extremities on command with equal strength 5/5 Results & Data Results & Data Vital Signs (Past 12 Hours) Vital Signs Temp Pulse Pulse Resp BP BP Pulse Ox 10/17/23 01:07 88 L 10/17/23 00:00 68 22 133/54 L 92 10/16/23 23:25 90 10/16/23 23:22 74 20 90 10/16/23 23:22 10/16/23 22:30 35.5 C L 73 18 152/65 H 92 O2 Del Method O2 Flow Rate 10/17/23 01:07 Room Air, Nasal Cannula 0 10/17/23 00:00 Nasal Cannula 3 10/16/23 23:25 Room Air 0 10/16/23 23:22 Room Air 10/16/23 23:22 Room Air 10/16/23 22:30 Room Air Laboratory Results Laboratory Results WBC 10.15 K/ul (4.8-10.8) 10/16/23 23:02 RBC 3.36 M/uL (4.20-5.40) L 10/16/23 23:02 Hgb 11.2 g/dl (12.0-16.0) L 10/16/23 23:02 Hct 35.4 % (37.0-47.0) L 10/16/23 23:02 MCV 105.4 fL (80.0-100.0) H 10/16/23 23:02 MCH 33.3 pg (25.0-34.0) 10/16/23 23:02 MCHC 31.6 g/dL (32.0-36.0) L 10/16/23 23:02 RDW Std Deviation 61.1 fL (36.4-46.3) H 10/16/23 23:02 RDW Coeff of Amparo 15.8 % (11.5-14.5) H 10/16/23 23:02 Plt Count 255 K/uL (130-400) 10/16/23 23:02 MPV 10.6 fL (9.4-12.4) 10/16/23 23:02 Immature Gran % (Auto) 1.1 % 10/16/23 23:02 Neut % (Auto) 81.0 % 10/16/23 23:02 Lymph % (Auto) 9.3 % 10/16/23 23:02 [place] % (Auto) 8.1 % 10/16/23 23:02 Eos % (Auto) 0.3 % 10/16/23 23:02 Baso % (Auto) 0.2 % 10/16/23 23:02 Neut # (Auto) 8.23 K/uL (1.40-6.50) H 10/16/23 23:02 Lymph # (Auto) 0.94 K/uL (1.20-3.40) L 10/16/23 23:02 [place] # (Auto) 0.82 K/uL (0.11-0.59) H 10/16/23 23:02 Eos # (Auto) 0.03 K/uL (0.00-0.50) 10/16/23 23:02 Baso # (Auto) 0.02 K/uL (0.00-0.20) 10/16/23 23:02 Immature Gran # (Auto) 0.11 K/uL (0.01-0.20) 10/16/23 23:02 VBG pH 7.47 (7.36-7.41) H 10/16/23 23:05 VBG pCO2 46 mmHg (38-50) 10/16/23 23:05 VBG pO2 21 mmHg 10/16/23 23:05 VBG HCO3 34 mmol/L 10/16/23 23:05 VBG O2 Saturation < 60.0 % 10/16/23 23:05 VBG Base Excess 8.6 mEq/L 10/16/23 23:05 Sodium 133 mmol/L (136-145) L 10/16/23 23:02 Potassium 3.9 mmol/L (3.5-5.1) 10/16/23 23:02 Chloride 95 mmol/L (98-107) L 10/16/23 23:02 Carbon Dioxide 29 mmol/L (21-32) 10/16/23 23:02 Anion Gap 9 (3-11) 10/16/23 23:02 BUN 32 mg/dl (6-23) H 10/16/23 23:02 Creatinine 3.35 mg/dl (0.6-1.2) H 10/16/23 23:02 Est Cr Clr Drug Dosing Not Reportable 10/16/23 23:02 Est GFR ( Amer) 14.8 ml/min 10/16/23 23:02 Est GFR (Non-Af Amer) 12.8 ml/min 10/16/23 23:02 BUN/Creatinine Ratio 9.6 (10-20) L 10/16/23 23:02 Glucose 149 mg/dl (70-99(Fasting)) H 10/16/23 23:02 Calcium 11.9 mg/dl (8.6-10.3) H 10/16/23 23:02 Magnesium 2.9 mg/dl (1.7-2.4) H 10/16/23 23:02 Total Bilirubin 0.9 mg/dl (0.2-1.0) 10/16/23 23:02 AST 23 U/L (13-39) 10/16/23 23:02 ALT 19 U/L (7-52) 10/16/23 23:02 Alkaline Phosphatase 204 U/L (34-104) H 10/16/23 23:02 Troponin I High Sens 60.0 pg/ml (0-14) H* 10/17/23 00:51 B-Natriuretic Peptide 3251 pg/ml (0-100) H 10/16/23 23:02 Total Protein 7.8 gm/dl (6.0-8.3) 10/16/23 23:02 Albumin 3.2 gm/dl (3.4-5.0) L 10/16/23 23:02 Globulin 4.6 gm/dl (2.5-4.0) H 10/16/23 23:02 Albumin/Globulin Ratio 0.7 (0.9-2) L 10/16/23 23:02 Urine Color Yellow 10/17/23 02:10 Urine Appearance Cloudy (Clear) A 10/17/23 02:10 Urine pH 7.5 (4.5-7.5) 10/17/23 02:10 Ur Specific Rosalie 1.011 (1.000-1.030) 10/17/23 02:10 Urine Protein 2+ (Negative) H 10/17/23 02:10 Urine Glucose (UA) Negative (Negative) 10/17/23 02:10 Urine Ketones Negative (Negative) 10/17/23 02:10 Urine Blood 3+ (Negative) H 10/17/23 02:10 Urine Nitrite Negative (Negative) 10/17/23 02:10 Urine Bilirubin Negative (Negative) 10/17/23 02:10 Urine Urobilinogen Negative (Negative) 10/17/23 02:10 Ur Leukocyte Esterase 2+ (Negative) H 10/17/23 02:10 Urine WBC (Auto) >30 /hpf (0-5) H 10/17/23 02:10 Urine RBC (Auto) >30 /hpf (0-4) H 10/17/23 02:10 U Hyaline Cast (Auto) 1-5 /lpf (0-5) 10/17/23 02:10 U Epithel Cells (Auto) >30 /lpf (0-5) H 10/17/23 02:10 Urine Bacteria (Auto) 1+ (Negative) H 10/17/23 02:10 Adenovirus (PCR) Not Detected (NotDetected) 10/16/23 23:25 B. pertussis DNA (PCR) Not Detected (NotDetected) 10/16/23 23:25 B.parapertussis DNA PCR Not Detected (NotDetected) 10/16/23 23:25 C. pneumoniae DNA (PCR) Not Detected (NotDetected) 10/16/23 23:25 Coronavirus OC43 (PCR) Not Detected (NotDetected) 10/16/23 23:25 Coronavirus HKU1 (PCR) Not Detected (NotDetected) 10/16/23 23:25 Coronavirus 229E (PCR) Not Detected (NotDetected) 10/16/23 23:25 SARS-CoV-2 (PCR) Not Detected (NotDetected) 10/16/23 23:25 Coronavirus NL63 (PCR) Not Detected (NotDetected) 10/16/23 23:25 Human Metapneumovir PCR Not Detected (NotDetected) 10/16/23 23:25 Influenza Type A (PCR) Not Detected (NotDetected) 10/16/23 23:25 Influenza Type B (PCR) Not Detected (NotDetected) 10/16/23 23:25 M. pneumoniae (PCR) Not Detected (NotDetected) 10/16/23 23:25 Parainfluenza 1 (PCR) Not Detected (NotDetected) 10/16/23 23:25 Parainfluenza 2 (PCR) Not Detected (NotDetected) 10/16/23 23:25 Parainfluenza 3 (PCR) Not Detected (NotDetected) 10/16/23 23:25 Parainfluenza 4 (PCR) Not Detected (NotDetected) 10/16/23 23:25 RSV (PCR) Not Detected (NotDetected) 10/16/23 23:25 Entero/Rhino (PCR) Not Detected (NotDetected) 10/16/23 23:25 Diagnostic Findings CXR with perm-cath in place, s/p surgical repair RUE, significant edema Code Status & VTE Plan VTE Prophylaxis Plan VTE Prophylaxis will be ordered: Yes PG Care Time/CCT Total # of Minutes Spent Total Time Spent with Patient: Total time spent is greater than 50% in coordination of care (as documented) at patient's floor/unit and/or counseling patient: Coding Level of Care Code 42035 INT INP/OBS CARE 2/55MIN Diagnoses Shortness of breath R06.02 ESRD (end stage renal disease) N18.6 Type 2 diabetes mellitus E11.9 Breast cancer C50.912 Breast location: unspecified site of breast Estrogen receptor status: unspecified Laterality: left Patient sex: female (4) Breast cancer Breast location: unspecified site of breast Estrogen receptor status: unspecified Laterality: left Patient sex: female Qualified Code(s): C50.912 - Malignant neoplasm of unspecified site of left female breast
[2023-10-17 02:33] LABS: Appearance Urine Cloudy (Clear); Bacteria Urine Automated 1+ (Negative); Bilirubin Urine Negative (Negative); Blood Urine 3+ (Negative); Color Urine Yellow; Epithelial Cell Urine Auto >30 /lpf (0-5); Glucose Urine UA Negative (Negative); Ketones Urine Negative (Negative); Leukocyte Esterase Urine 2+ (Negative); Nitrite Urine Negative (Negative); RBC Urine Automated >30 /hpf (0-4); Specific Gravity Urine 1.011 (1.000-1.030); Urobilinogen Urine Negative (Negative); WBC Urine Automated >30 /hpf (0-5); pH Urine 7.5 (4.5-7.5)
--- NOTE | 2023-10-17 02:43 | Emergency Department Note ---
History of Present Illness General Chief complaint: Shortness of Breath/Dyspnea Stated complaint: DR LUIS NEEDS IV DRIP FOR HIGH CALCIUM, SOB Time Seen by Provider: 10/16/23 22:44 History of Present Illness This is a 73-year-old female presenting to the emergency department for evaluation of some progressive shortness of breath. Patient has history of diabetes, metastatic breast cancer, and chronic kidney disease. She is a Tuesday dialysis patient, and has been completing dialysis as normal. She does make urine and is prescribed Lasix. Patient does not report any distinct chest pain. She does not wear oxygen at home. Home Medications Medication Instructions Recorded Confirmed Type omega-3 fatty acids 1,000 mg 2,000 mg (2 x 1,000 mg) PO BID 07/19/22 10/16/23 Rx capsule #360 caps allopurinol 100 mg tablet 50 mg (1/2 x 100 mg) PO DAILY #45 06/28/23 10/16/23 Rx tabs furosemide 40 mg tablet 40 mg PO BID #180 tabs 06/28/23 10/16/23 Rx insulin aspart U-100 100 unit/mL See Rx Instructions subcut 06/28/23 10/16/23 Rx (3 mL) subcutaneous pen (Novolog DIRECTED #135 mL FlexPen U-100 Insulin aspart) lidocaine 5 % topical patch 1 patch topical DAILY #30 ea 06/28/23 10/16/23 Rx metoprolol succinate 25 mg 25 mg PO DAILY #90 tabs 06/28/23 10/16/23 Rx tablet,extended release 24 hr pen needle, diabetic 32 gauge x #600 ea 06/28/23 10/16/23 Rx 5/32" (BD Sheila 2nd Gen Pen Needle) venlafaxine 75 mg capsule,extended 75 mg PO DAILY #90 caps 06/28/23 10/16/23 Rx release 24 hr prednisone 10 mg tablet 10 mg PO DAILY #30 tabs 09/06/23 10/16/23 Rx insulin glargine 100 unit/mL (3 10 unit subcut BID 09/13/23 10/16/23 History mL) subcutaneous pen (Lantus Solostar U-100 Insulin) mirtazapine 7.5 mg tablet 7.5 mg PO HS #30 tabs 10/05/23 10/16/23 Rx ondansetron HCl 4 mg tablet 4 mg PO Q4H PRN nausea and 10/05/23 10/16/23 Rx vomiting #30 tabs oxycodone 5 mg tablet 5 mg PO Q4H PRN pain #30 tabs 10/05/23 10/16/23 Rx tramadol 50 mg tablet 50 mg PO Q6 PRN Pain 10/16/23 10/16/23 History Allergies Allergy/AdvReac Type Severity Reaction Status Date / Time amoxicillin Allergy Severe LIPS Verified 06/28/23 13:29 SWELLED, "RED ALL OVER" doxycycline Allergy Severe LIPS Verified 06/28/23 13:29 SWELLED, "RED ALL OVER". 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 (~09/13/23) Intractable back pain CKD (chronic kidney disease) stage V requiring chronic dialysis Elevated troponin Anemia Iron deficiency anemia (HFpEF) heart failure with preserved ejection fraction Mobitz type 1 second degree AV block Breast cancer diagnosed 2020 Statin myopathy Hyperuricemia Crystal arthropathy Candidal intertrigo Chronic stasis dermatitis Dyslipidemia Seborrheic dermatitis Type 2 diabetes mellitus HTN (hypertension) GERD (gastroesophageal reflux disease) MCKENZIE (nonalcoholic steatohepatitis) Surgical History History of tonsillectomy and adenoidectomy Hx of cholecystectomy History of appendectomy Humerus fracture surgical repair Family History Father Depression Diabetes Mother Hypertension Kidney stones Gallbladder disease Denies family history of Ovarian cancer Prostate cancer Myocardial infarction Breast cancer Colorectal cancer Social History Smoking Status: Never smoker Second Hand Exposure: No; Do You Dip or Chew Tobacco: No; Hx Alcohol Use: No Hx Substance Use: No Preferred Language: [place] Communication Ability: Effective Visual Impairment: Limited Hearing Ability: Normal Fudge Candy Maker Required: No Beliefs That Will Affect Care: None marital status: Current Living Situation: Significant Other Current Living Situation Comment: lives at home with and caregiver 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 Other Information That Helps Us Care for You: No Feels Safe at Home: Yes Safety Concerns: Feels Safe At This Time Childhood Exposure to Second-Hand Smoke: No Diet: regular Dental Care, Regularly: Yes Physical Activity Frequency: Does not Exercise Seatbelt Use: never Sunscreen Use: No Assistive Devices: Cane, Glasses, Scooter/Electric Scooter, Walker and Wheelchair Review of Systems A total of 10 systems reviewed and were otherwise negative Physical Exam Vital Signs Vital Signs - 24 hr 10/16/23 22:30 10/16/23 22:34 10/16/23 23:22 Temperature 35.5 C L Temperature Source Temporal Artery Scan Pulse Rate 73 74 Pulse Rate [Apical] Pulse Rhythm Pulse Rhythm [Apical] Pulse Strength [Apical] Respiratory Rate 18 Respiratory Effort / Characteristics Non-Labored Spontaneous Respiratory Depth Normal Respiratory Pattern Regular Blood Pressure 152/65 H Blood Pressure [Right Arm] Blood Pressure Mean 94 Blood Pressure Mean [Right Arm] Pulse Oximetry 92 Oxygen Delivery Method Room Air Room Air Oxygen Flow Rate Sepsis Recent Fever Within 48 Hours No Sepsis New/Unexplained Change in Mental Status No Sepsis Action Taken by Nursing No Action Required Oxygen Flow Rate - Titration Pulse Oximetry Post Tiitration 10/16/23 23:22 10/16/23 23:25 10/17/23 00:00 Temperature Temperature Source Pulse Rate 74 Pulse Rate [Apical] 68 Pulse Rhythm Regular Pulse Rhythm [Apical] Regular Pulse Strength [Apical] Normal Respiratory Rate 20 22 Respiratory Effort / Characteristics Non-Labored Spontaneous Respiratory Depth Normal Respiratory Pattern Regular Blood Pressure Blood Pressure [Right Arm] 133/54 L Blood Pressure Mean Blood Pressure Mean [Right Arm] 80 Pulse Oximetry 90 90 92 Oxygen Delivery Method Room Air Room Air Nasal Cannula Oxygen Flow Rate 0 3 Sepsis Recent Fever Within 48 Hours Sepsis New/Unexplained Change in Mental Status Sepsis Action Taken by Nursing Oxygen Flow Rate - Titration Pulse Oximetry Post Tiitration 10/17/23 01:07 Temperature Temperature Source Pulse Rate Pulse Rate [Apical] Pulse Rhythm Pulse Rhythm [Apical] Pulse Strength [Apical] Respiratory Rate Respiratory Effort / Characteristics Respiratory Depth Respiratory Pattern Blood Pressure Blood Pressure [Right Arm] Blood Pressure Mean Blood Pressure Mean [Right Arm] Pulse Oximetry 88 L Oxygen Delivery Method Room Air Nasal Cannula Oxygen Flow Rate 0 Sepsis Recent Fever Within 48 Hours Sepsis New/Unexplained Change in Mental Status Sepsis Action Taken by Nursing Oxygen Flow Rate - Titration 3 Pulse Oximetry Post Tiitration 92 VITALS: Vitals are noted on the nurse's note and reviewed by myself. Vital signs with intermittent hypoxic episodes GENERAL: Chronically ill white female who appears somewhat short of breath. HEAD: Normocephalic atraumatic. HEART: Regular rate and rhythm without murmurs gallops or rubs. LUNGS: Bibasilar crackles noted ABDOMEN: Positive normal bowel sounds x 4. Soft, nontender, without masses or organomegaly. No guarding or rebound tenderness. MUSCULOSKELETAL: No muscle atrophy, erythema, or edema noted. NEURO: Patient was alert and oriented to person place and time. CN II through XII grossly intact. Course Administered Medications Discontinued Medications Furosemide (Furosemide 40 Mg/4 Ml Vial) 40 mg IV ONE ONE Stop: 10/17/23 00:02 Last Admin: 10/17/23 00:25 Dose: 40 mg Documented By: PATRICK Medical Decision Making Differential Diagnosis Differential diagnosis includes, but is not limited to: Myocardial infarction, dysrhythmia, pericarditis, pneumothorax, aortic aneurysm/dissection, DVT/PE, anxiety, GERD, PUD, electrolyte imbalance, thyroid disorder, pneumonia, bronchitis, pancreatitis, and others Laboratory Data 10/16/23 23:02 10/16/23 23:02 Lab Results 10/16/23 10/16/23 10/16/23 Range/Units 23:02 23:05 23:25 WBC 10.15 (4.8-10.8) K/ul RBC 3.36 L (4.20-5.40) M/uL Hgb 11.2 L (12.0-16.0) g/dl Hct 35.4 L (37.0-47.0) % MCV 105.4 H (80.0-100.0) fL MCH 33.3 (25.0-34.0) pg MCHC 31.6 L (32.0-36.0) g/dL RDW Std Deviation 61.1 H (36.4-46.3) fL RDW Coeff of Amparo 15.8 H (11.5-14.5) % Plt Count 255 (130-400) K/uL MPV 10.6 (9.4-12.4) fL Immature Gran % (Auto) 1.1 % Neut % (Auto) 81.0 % Lymph % (Auto) 9.3 % Wells % (Auto) 8.1 % Eos % (Auto) 0.3 % Baso % (Auto) 0.2 % Neut # (Auto) 8.23 H (1.40-6.50) K/uL Lymph # (Auto) 0.94 L (1.20-3.40) K/uL Wells # (Auto) 0.82 H (0.11-0.59) K/uL Eos # (Auto) 0.03 (0.00-0.50) K/uL Baso # (Auto) 0.02 (0.00-0.20) K/uL Immature Gran # (Auto) 0.11 (0.01-0.20) K/uL VBG pH 7.47 H (7.36-7.41) VBG pCO2 46 (38-50) mmHg VBG pO2 21 mmHg VBG HCO3 34 mmol/L VBG O2 Saturation < 60.0 % VBG Base Excess 8.6 mEq/L Sodium 133 L (136-145) mmol/L Potassium 3.9 (3.5-5.1) mmol/L Chloride 95 L (98-107) mmol/L Carbon Dioxide 29 (21-32) mmol/L Anion Gap 9 (3-11) BUN 32 H (6-23) mg/dl Creatinine 3.35 H (0.6-1.2) mg/dl Est Cr Clr Drug Dosing Not Reportable Est GFR ( Amer) 14.8 ml/min Est GFR (Non-Af Amer) 12.8 ml/min BUN/Creatinine Ratio 9.6 L (10-20) Glucose 149 H (70-99(Fasting)) mg/dl Calcium 11.9 H (8.6-10.3) mg/dl Magnesium 2.9 H (1.7-2.4) mg/dl Total Bilirubin 0.9 (0.2-1.0) mg/dl AST 23 (13-39) U/L ALT 19 (7-52) U/L Alkaline Phosphatase 204 H (34-104) U/L Troponin I High Sens 59.7 H* (0-14) pg/ml B-Natriuretic Peptide 3251 H (0-100) pg/ml Total Protein 7.8 (6.0-8.3) gm/dl Albumin 3.2 L (3.4-5.0) gm/dl Globulin 4.6 H (2.5-4.0) gm/dl Albumin/Globulin Ratio 0.7 L (0.9-2) Adenovirus (PCR) Not Detected (NotDetected) B. pertussis DNA (PCR) Not Detected (NotDetected) B.parapertussis DNA PCR Not Detected (NotDetected) C. pneumoniae DNA (PCR) Not Detected (NotDetected) Coronavirus OC43 (PCR) Not Detected (NotDetected) Coronavirus HKU1 (PCR) Not Detected (NotDetected) Coronavirus 229E (PCR) Not Detected (NotDetected) SARS-CoV-2 (PCR) Not Detected (NotDetected) Coronavirus NL63 (PCR) Not Detected (NotDetected) Human Metapneumovir PCR Not Detected (NotDetected) Influenza Type A (PCR) Not Detected (NotDetected) Influenza Type B (PCR) Not Detected (NotDetected) M. pneumoniae (PCR) Not Detected (NotDetected) Parainfluenza 1 (PCR) Not Detected (NotDetected) Parainfluenza 2 (PCR) Not Detected (NotDetected) Parainfluenza 3 (PCR) Not Detected (NotDetected) Parainfluenza 4 (PCR) Not Detected (NotDetected) RSV (PCR) Not Detected (NotDetected) Entero/Rhino (PCR) Not Detected (NotDetected) 10/17/23 Range/Units 00:51 WBC (4.8-10.8) K/ul RBC (4.20-5.40) M/uL Hgb (12.0-16.0) g/dl Hct (37.0-47.0) % MCV (80.0-100.0) fL MCH (25.0-34.0) pg MCHC (32.0-36.0) g/dL RDW Std Deviation (36.4-46.3) fL RDW Coeff of Amparo (11.5-14.5) % Plt Count (130-400) K/uL MPV (9.4-12.4) fL Immature Gran % (Auto) % Neut % (Auto) % Lymph % (Auto) % Wells % (Auto) % Eos % (Auto) % Baso % (Auto) % Neut # (Auto) (1.40-6.50) K/uL Lymph # (Auto) (1.20-3.40) K/uL Wells # (Auto) (0.11-0.59) K/uL Eos # (Auto) (0.00-0.50) K/uL Baso # (Auto) (0.00-0.20) K/uL Immature Gran # (Auto) (0.01-0.20) K/uL VBG pH (7.36-7.41) VBG pCO2 (38-50) mmHg VBG pO2 mmHg VBG HCO3 mmol/L VBG O2 Saturation % VBG Base Excess mEq/L Sodium (136-145) mmol/L Potassium (3.5-5.1) mmol/L Chloride (98-107) mmol/L Carbon Dioxide (21-32) mmol/L Anion Gap (3-11) BUN (6-23) mg/dl Creatinine (0.6-1.2) mg/dl Est Cr Clr Drug Dosing Est GFR ( Amer) ml/min Est GFR (Non-Af Amer) ml/min BUN/Creatinine Ratio (10-20) Glucose (70-99(Fasting)) mg/dl Calcium (8.6-10.3) mg/dl Magnesium (1.7-2.4) mg/dl Total Bilirubin (0.2-1.0) mg/dl AST (13-39) U/L ALT (7-52) U/L Alkaline Phosphatase (34-104) U/L Troponin I High Sens 60.0 H* (0-14) pg/ml B-Natriuretic Peptide (0-100) pg/ml Total Protein (6.0-8.3) gm/dl Albumin (3.4-5.0) gm/dl Globulin (2.5-4.0) gm/dl Albumin/Globulin Ratio (0.9-2) Adenovirus (PCR) (NotDetected) B. pertussis DNA (PCR) (NotDetected) B.parapertussis DNA PCR (NotDetected) C. pneumoniae DNA (PCR) (NotDetected) Coronavirus OC43 (PCR) (NotDetected) Coronavirus HKU1 (PCR) (NotDetected) Coronavirus 229E (PCR) (NotDetected) SARS-CoV-2 (PCR) (NotDetected) Coronavirus NL63 (PCR) (NotDetected) Human Metapneumovir PCR (NotDetected) Influenza Type A (PCR) (NotDetected) Influenza Type B (PCR) (NotDetected) M. pneumoniae (PCR) (NotDetected) Parainfluenza 1 (PCR) (NotDetected) Parainfluenza 2 (PCR) (NotDetected) Parainfluenza 3 (PCR) (NotDetected) Parainfluenza 4 (PCR) (NotDetected) RSV (PCR) (NotDetected) Entero/Rhino (PCR) (NotDetected) MDM Narrative Physical exam and history were performed. Nursing notes, EMR, and Medication List were personally reviewed. No social concerns were identified as barriers to patients care. Patient appears to have shortness of breath bringing her to the ER. She has multiple comorbidities and on exam she sounds fluid overloaded. IV access was established and labs were obtained. Chest x-ray performed. Case was discussed with my attending, Dr. Stewart, who remained closely involved in care and decision making. Patient's blood work is as above and was reviewed. She does not have a significantly elevated white blood cell count. She is not significantly anemic. Glucose is 149. Troponin is 59.7 with a repeat of 60. She does have a chronically elevated troponin, and these values are the best in the past 11 months. BNP is 3251 suggestive of some heart failure. She was given IV Lasix here in the ER. Chest x-ray was reviewed by myself and my attending and is consistent with a fluid overload pattern. Overall the patient does not appear well for discharge. She is persistently between 86 and 90% O2 saturation on room air. She seems to be responding to some nasal cannula oxygen, but will likely need some additional diuresis as well as her hemodialysis. Case was discussed with the on-call hospitalist team. Please see their dictation for further patient course, plan, and disposition. The chart was completed utilizing [employer] Voice Recognition Software. Grammatical errors, random word insertions, pronoun errors, and incomplete sentences are an occasional consequence of this system due to software limitations, ambient noise, and hardware issues. Any formal questions or concerns about the content, text, or information contained within the body of this dictation should be directly addressed to the provider for clarification. . Impression & Plan Shortness of breath, Heart failure Discharge Plan Visit Data Chief Complaint: Shortness of Breath/Dyspnea Stated Complaint: DR LUIS NEEDS IV DRIP FOR HIGH CALCIUM, SOB ED Provider: Sukh Stewart ED Midlevel Provider: Luis Mart Discharge Problem: Shortness of breath, Heart failure Patient Disposition: Admitted As Inpatient Discharge Instructions Interventions: ED Discharge Assessment Last Done: 10/17/23 03:54
[2023-10-17 02:45] LABS: Protein Urine 2+ (Negative)
[2023-10-17] MEDS ORDERED: GLUCOSE 10 TAB/TUBE PO PRN (04:29)
[2023-10-17] MEDS ORDERED: GLUCAGON FOR INJ 1 MG VIAL SQ PRN (04:29)
[2023-10-17] MEDS ORDERED: DEXTROSE 50% 50 ML SYRINGE IV PRN (04:29)
[2023-10-17] MEDS ORDERED: oxyCODONE HCL IR 5 MG TAB (IMMEDIATE RELEASE) PO PRN (04:29)
[2023-10-17] MEDS ORDERED: GLUCOSE 40% GEL 15 GM TUBE PO PRN (04:29)
[2023-10-17] MEDS ORDERED: CARBOHYDRATES FOR HYPOGLYCEMIA PO PRN (04:29)
[2023-10-17] MEDS ORDERED: ONDANSETRON INJ 2 MG/ML 2 ML VIAL IV PRN (04:29)
[2023-10-17] MEDS: traMADol HCL 50 MG TABLET PO PRN ×2 (06:40→23:25)
--- NOTE | 2023-10-17 07:28 | XRay Report ---
XR chest 1V portable CLINICAL HISTORY: Dyspnea. COMPARISON STUDY: Chest CT November 05, 2022. Chest radiograph September 13, 2023. FINDINGS: Right humeral internal fixation and a dual lumen right internal [id number] are incidenta lly noted. There is no pneumothorax. There are small bilateral pleural effusions with associated biba silar opacities. Cardiomegaly is unchanged. Interstitial thickening has developed. IMPRESSION: Cardiomegaly with interstitial pulmonary edema and small bilateral pleural effusions wit h associated bibasilar opacities. ACT 112: Negative or not required by law. Electronically signed by: Bob Alejandre M.D. 10/17/2023 7:27 AM
[2023-10-17] MEDS: METOPROLOL SUCC 25MG EXT REL TAB PO SCH (08:18)
[2023-10-17] MEDS: LIDOCAINE 5% 1 PATCH TD SCH (08:20)
[2023-10-17] MEDS: VENLAFAXINE HCL XR 75 MG CAPXR PO SCH (08:20)
[2023-10-17] MEDS: predniSONE 10 MG TABLET PO SCH (08:20)
[2023-10-17] MEDS: allopurinoL 100 MG TAB PO SCH (08:20)
[2023-10-17] MEDS: INSULIN ASPART PER UNIT CHARGE SC SCH ×2 (08:38→11:53)
[2023-10-17] MEDS ORDERED: LANTUS PER UNIT CHARGE SQ SCH (09:00)
[2023-10-17] MEDS ORDERED: HEPARIN SOD 5,000 UNIT/0.5 ML VIAL SQ SCH (09:00)
--- NOTE | 2023-10-17 09:03 | Nephrology Consultation ---
Date of Consultation October 17, 2023 Assessment & Plan (1) ESRD (end stage renal disease): * Outpatient HD Rx: M&F [facility] 2.5hr, 2K 2Ca, F-180NR, EDW 94.5 kg (this likely needs to be adjusted to account for progressive weight loss) * HD was coordinated this AM. Orders entered into the EHR and reviewed with the cable engineer * Renal diet and 1.2 daily fluid restriction (2) Hypercalcemia: * HD today (3) Anemia: * Outpatient Rx Venofer 100 mg IVP with HD and Micera 30 IVP q 2 weeks with HD * TUNDE held with Hgb >11 (4) Breast cancer: (5) Atrial fibrillation: * New. Rate controlled with metoprolol. * EKG requested this AM prior to HD. * Management per hospitalist. (6) Right hip pain: * Tenderness along the R lateral hip / bursa. * I suspect Pauline would benefit from a corticosteroid injection. * f/u with orthopedics. * Management per hospitalist. History of Present Illness Reason for Consultation: ESRD Requesting Physician: Flower Franklin MD Attending Physician: Flower Franklin MD History of Present Illness Pauline Beyer is a 73 year-old female with CKD Vd. She is maintained on twice weekly hemodialysis (MF) at [facility] under my care. Pauline dialyzes with a [facility]. She completed dialysis on Tuesday (10/14) without complications. She progressed to ESKD and required initiation of HD in November 2022 following multiple hospitalizations complicated by JEFFREY. She has remained non-oliguric and has not required significant UF. Net UF <1 L on Tuesday. EDW is 94.5 kg. Rx 2.5hr, 400/800, 2K 2Ca, F-180NR. EDW has recently been adjusted to account for progressive weight loss. In August, her dry weight was 99 kg. Her medical history is significant for breast cancer with metastasis to bone including the lumbar spine, recurrent hypercalcemia, HFpEF, Mobitz type I second-degree AV block, dyslipidemia, AODM, HTN, GERD, and MCKENZIE. She recently presented to [facility] with back pain. LS spine CT revealed fracture of L1 vertebral body with radiolucency concerning for lytic disease/pathologic fracture. 4mm retropulsion was reported. Dr. Adame performed Kyphoplasty. Pauline has continued to struggle with hip pain. She is following at [facility] orthopedics. Oxycodone has been required for pain control at home. Pauline told me this morning that right hip pain is her primary concern. She was breathing comfortably in her recliner. She reports some degree of chronic stable orthopnea. She denies dyspnea at rest at this time. Pauline reported that yesterday she experienced some increased work of breathing during the day and was visibly uncomfortable to her partner prompting her to come to the ER. She denies any chest pain or palpitations. She has not experienced fevers or chills. She does not have a cough. She did not notice significant increase in urine output with diuretics yesterday. CXR in the ER demonstrating evidence of pulmonary edema. O2 sats ~88-90% on room air. 100% on 2 L NC. EKG demonstrating atrial fibrillation at 77 bpm. Hemodialysis will be coordinated this morning. I discussed the patient's recent history with staff at [facility]. EKG will be repeated prior to dialysis today. Allergies Allergy/AdvReac Type Severity Reaction Status Date / Time amoxicillin Allergy Severe LIPS Verified 06/28/23 13:29 SWELLED, "RED ALL OVER" doxycycline Allergy Severe LIPS Verified 06/28/23 13:29 SWELLED, "RED ALL OVER". cephalexin [From Keflex] Allergy Intermediate skin Verified 06/28/23 13:29 starts to peel off sulfamethoxazole Allergy Unknown Unknown Verified 06/28/23 13:29 [From Bactrim] trimethoprim [From Bactrim] Allergy Unknown Unknown Verified 06/28/23 13:29 atorvastatin AdvReac Intermediate Myalgia Verified 06/28/23 13:29 Home Medications Medication Instructions Recorded Confirmed Type omega-3 fatty acids 1,000 mg 2,000 mg (2 x 1,000 mg) PO BID 07/19/22 10/16/23 Rx capsule #360 caps allopurinol 100 mg tablet 50 mg (1/2 x 100 mg) PO DAILY #45 06/28/23 10/16/23 Rx tabs furosemide 40 mg tablet 40 mg PO BID #180 tabs 06/28/23 10/16/23 Rx insulin aspart U-100 100 unit/mL See Rx Instructions subcut 06/28/23 10/16/23 Rx (3 mL) subcutaneous pen (Novolog DIRECTED #135 mL FlexPen U-100 Insulin aspart) lidocaine 5 % topical patch 1 patch topical DAILY #30 ea 06/28/23 10/16/23 Rx metoprolol succinate 25 mg 25 mg PO DAILY #90 tabs 06/28/23 10/16/23 Rx tablet,extended release 24 hr pen needle, diabetic 32 gauge x #600 ea 06/28/23 10/16/23 Rx 5/32" (BD Sheila 2nd Gen Pen Needle) venlafaxine 75 mg capsule,extended 75 mg PO DAILY #90 caps 06/28/23 10/16/23 Rx release 24 hr prednisone 10 mg tablet 10 mg PO DAILY #30 tabs 09/06/23 10/16/23 Rx insulin glargine 100 unit/mL (3 10 unit subcut BID 09/13/23 10/16/23 History mL) subcutaneous pen (Lantus Solostar U-100 Insulin) mirtazapine 7.5 mg tablet 7.5 mg PO HS #30 tabs 10/05/23 10/16/23 Rx ondansetron HCl 4 mg tablet 4 mg PO Q4H PRN nausea and 10/05/23 10/16/23 Rx vomiting #30 tabs oxycodone 5 mg tablet 5 mg PO Q4H PRN pain #30 tabs 10/05/23 10/16/23 Rx tramadol 50 mg tablet 50 mg PO Q6 PRN Pain 10/16/23 10/16/23 History Patient History Medical History 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 (~09/13/23) Intractable back pain CKD (chronic kidney disease) stage V requiring chronic dialysis Elevated troponin Anemia Iron deficiency anemia (HFpEF) heart failure with preserved ejection fraction Mobitz type 1 second degree AV block Breast cancer diagnosed 2020 Statin myopathy Hyperuricemia Crystal arthropathy Candidal intertrigo Chronic stasis dermatitis Dyslipidemia Seborrheic dermatitis Type 2 diabetes mellitus HTN (hypertension) GERD (gastroesophageal reflux disease) MCKENZIE (nonalcoholic steatohepatitis) Surgical History History of tonsillectomy and adenoidectomy Hx of cholecystectomy History of appendectomy Humerus fracture surgical repair Family History Father Depression Diabetes Mother Hypertension Kidney stones Gallbladder disease Denies family history of Ovarian cancer Prostate cancer Myocardial infarction Breast cancer Colorectal cancer Social History Smoking Status: Never smoker Second Hand Exposure: No; Do You Dip or Chew Tobacco: No; Hx Alcohol Use: No Hx Substance Use: No Preferred Language: Divehi Communication Ability: Effective Visual Impairment: Limited Hearing Ability: Normal Agent Based Modeler Required: No Beliefs That Will Affect Care: None marital status: Current Living Situation: Significant Other Current Living Situation Comment: lives at home with and caregiver 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 Other Information That Helps Us Care for You: No Feels Safe at Home: Yes Safety Concerns: Feels Safe At This Time Childhood Exposure to Second-Hand Smoke: No Diet: regular Dental Care, Regularly: Yes Physical Activity Frequency: Does not Exercise Seatbelt Use: never Sunscreen Use: No Assistive Devices: Cane, Glasses, Scooter/Electric Scooter, Walker and Wheelchair Review of Systems Review of Systems: All systems reviewed & are unremarkable except as noted in HPI & below Physical Exam Constitutional: well developed; no acute distress Eyes: no scleral abnormality and no corneal abnormality Neck: normal visual inspection and trachea midline Respiratory: normal respiratory effort Auscultation: lungs clear to auscultation bilaterally Cardiovascular: Rate/Rhythm: + irregularly irregular Heart Sounds: normal S1 and normal S2 Extremities: + edema Musculoskeletal: Extremities: no cyanosis and no clubbing Skin: normal turgor; no lesions Neurologic: Motor/Sensory: no tremor and no asterixis Psychiatric: Orientation: alert and oriented x 3 Results & Data Vital Signs (Past 12 Hours) Vital Signs Temp Pulse Pulse Pulse Resp BP BP 10/17/23 07:51 36.4 C L 78 18 135/64 10/17/23 04:32 10/17/23 04:32 36.6 C 75 18 138/73 10/17/23 02:00 72 19 141/66 H 10/17/23 01:07 10/17/23 00:00 68 22 133/54 L 10/16/23 23:25 10/16/23 23:22 74 20 10/16/23 23:22 10/16/23 22:34 74 10/16/23 22:30 35.5 C L 73 18 152/65 H Pulse Ox O2 Del Method O2 Flow Rate 10/17/23 07:51 100 Room Air 2 10/17/23 04:32 Nasal Cannula 3 10/17/23 04:32 100 Nasal Cannula 3 10/17/23 02:00 94 Room Air 10/17/23 01:07 88 L Room Air, Nasal Cannula 0 10/17/23 00:00 92 Nasal Cannula 3 10/16/23 23:25 90 Room Air 0 10/16/23 23:22 90 Room Air 10/16/23 23:22 Room Air 10/16/23 22:34 10/16/23 22:30 92 Room Air Laboratory Results Laboratory Results - last 24 hr 10/16/23 10/16/23 10/16/23 23:02 23:05 23:25 WBC 10.15 RBC 3.36 L Hgb 11.2 L Hct 35.4 L MCV 105.4 H MCH 33.3 MCHC 31.6 L RDW Std Deviation 61.1 H RDW Coeff of Amparo 15.8 H Plt Count 255 MPV 10.6 Immature Gran % (Auto) 1.1 Neut % (Auto) 81.0 Lymph % (Auto) 9.3 [place] % (Auto) 8.1 Eos % (Auto) 0.3 Baso % (Auto) 0.2 Neut # (Auto) 8.23 H Lymph # (Auto) 0.94 L [place] # (Auto) 0.82 H Eos # (Auto) 0.03 Baso # (Auto) 0.02 Immature Gran # (Auto) 0.11 VBG pH 7.47 H VBG pCO2 46 VBG pO2 21 VBG HCO3 34 VBG O2 Saturation < 60.0 VBG Base Excess 8.6 Sodium 133 L Potassium 3.9 Chloride 95 L Carbon Dioxide 29 Anion Gap 9 BUN 32 H Creatinine 3.35 H Est Cr Clr Drug Dosing Not Reportable Est GFR ( Amer) 14.8 Est GFR (Non-Af Amer) 12.8 BUN/Creatinine Ratio 9.6 L Glucose 149 H POC Glucose Calcium 11.9 H Magnesium 2.9 H Total Bilirubin 0.9 AST 23 ALT 19 Alkaline Phosphatase 204 H Troponin I High Sens 59.7 H* B-Natriuretic Peptide 3251 H Total Protein 7.8 Albumin 3.2 L Globulin 4.6 H Albumin/Globulin Ratio 0.7 L Urine Color Urine Appearance Urine pH Ur Specific [place] Urine Protein Urine Glucose (UA) Urine Ketones Urine Blood Urine Nitrite Urine Bilirubin Urine Urobilinogen Ur Leukocyte Esterase Urine WBC (Auto) Urine RBC (Auto) U Hyaline Cast (Auto) U Epithel Cells (Auto) Urine Bacteria (Auto) Nasal Screen MRSA (PCR) Adenovirus (PCR) Not Detected B. pertussis DNA (PCR) Not Detected B.parapertussis DNA PCR Not Detected C. pneumoniae DNA (PCR) Not Detected Coronavirus OC43 (PCR) Not Detected Coronavirus HKU1 (PCR) Not Detected Coronavirus 229E (PCR) Not Detected SARS-CoV-2 (PCR) Not Detected Coronavirus NL63 (PCR) Not Detected Human Metapneumovir PCR Not Detected Influenza Type A (PCR) Not Detected Influenza Type B (PCR) Not Detected M. pneumoniae (PCR) Not Detected Parainfluenza 1 (PCR) Not Detected Parainfluenza 2 (PCR) Not Detected Parainfluenza 3 (PCR) Not Detected Parainfluenza 4 (PCR) Not Detected RSV (PCR) Not Detected Entero/Rhino (PCR) Not Detected 10/17/23 10/17/23 10/17/23 00:51 02:10 05:10 WBC RBC Hgb Hct MCV MCH MCHC RDW Std Deviation RDW Coeff of Amparo Plt Count MPV Immature Gran % (Auto) Neut % (Auto) Lymph % (Auto) [place] % (Auto) Eos % (Auto) Baso % (Auto) Neut # (Auto) Lymph # (Auto) [place] # (Auto) Eos # (Auto) Baso # (Auto) Immature Gran # (Auto) VBG pH VBG pCO2 VBG pO2 VBG HCO3 VBG O2 Saturation VBG Base Excess Sodium Potassium Chloride Carbon Dioxide Anion Gap BUN Creatinine Est Cr Clr Drug Dosing Est GFR ( Amer) Est GFR (Non-Af Amer) BUN/Creatinine Ratio Glucose POC Glucose Calcium Magnesium Total Bilirubin AST ALT Alkaline Phosphatase Troponin I High Sens 60.0 H* B-Natriuretic Peptide Total Protein Albumin Globulin Albumin/Globulin Ratio Urine Color Yellow Urine Appearance Cloudy A Urine pH 7.5 Ur Specific [place] 1.011 Urine Protein 2+ H Urine Glucose (UA) Negative Urine Ketones Negative Urine Blood 3+ H Urine Nitrite Negative Urine Bilirubin Negative Urine Urobilinogen Negative Ur Leukocyte Esterase 2+ H Urine WBC (Auto) >30 H Urine RBC (Auto) >30 H U Hyaline Cast (Auto) 1-5 U Epithel Cells (Auto) >30 H Urine Bacteria (Auto) 1+ H Nasal Screen MRSA (PCR) Negative Adenovirus (PCR) B. pertussis DNA (PCR) B.parapertussis DNA PCR C. pneumoniae DNA (PCR) Coronavirus OC43 (PCR) Coronavirus HKU1 (PCR) Coronavirus 229E (PCR) SARS-CoV-2 (PCR) Coronavirus NL63 (PCR) Human Metapneumovir PCR Influenza Type A (PCR) Influenza Type B (PCR) M. pneumoniae (PCR) Parainfluenza 1 (PCR) Parainfluenza 2 (PCR) Parainfluenza 3 (PCR) Parainfluenza 4 (PCR) RSV (PCR) Entero/Rhino (PCR) 10/17/23 07:41 WBC RBC Hgb Hct MCV MCH MCHC RDW Std Deviation RDW Coeff of Amparo Plt Count MPV Immature Gran % (Auto) Neut % (Auto) Lymph % (Auto) [place] % (Auto) Eos % (Auto) Baso % (Auto) Neut # (Auto) Lymph # (Auto) [place] # (Auto) Eos # (Auto) Baso # (Auto) Immature Gran # (Auto) VBG pH VBG pCO2 VBG pO2 VBG HCO3 VBG O2 Saturation VBG Base Excess Sodium Potassium Chloride Carbon Dioxide Anion Gap BUN Creatinine Est Cr Clr Drug Dosing Est GFR ( Amer) Est GFR (Non-Af Amer) BUN/Creatinine Ratio Glucose POC Glucose 102 H Calcium Magnesium Total Bilirubin AST ALT Alkaline Phosphatase Troponin I High Sens B-Natriuretic Peptide Total Protein Albumin Globulin Albumin/Globulin Ratio Urine Color Urine Appearance Urine pH Ur Specific [place] Urine Protein Urine Glucose (UA) Urine Ketones Urine Blood Urine Nitrite Urine Bilirubin Urine Urobilinogen Ur Leukocyte Esterase Urine WBC (Auto) Urine RBC (Auto) U Hyaline Cast (Auto) U Epithel Cells (Auto) Urine Bacteria (Auto) Nasal Screen MRSA (PCR) Adenovirus (PCR) B. pertussis DNA (PCR) B.parapertussis DNA PCR C. pneumoniae DNA (PCR) Coronavirus OC43 (PCR) Coronavirus HKU1 (PCR) Coronavirus 229E (PCR) SARS-CoV-2 (PCR) Coronavirus NL63 (PCR) Human Metapneumovir PCR Influenza Type A (PCR) Influenza Type B (PCR) M. pneumoniae (PCR) Parainfluenza 1 (PCR) Parainfluenza 2 (PCR) Parainfluenza 3 (PCR) Parainfluenza 4 (PCR) RSV (PCR) Entero/Rhino (PCR) Diagnostic Findings XR chest 1V portable COMPARISON STUDY: Chest CT November 05, 2022. Chest radiograph September 13, 2023. FINDINGS: Right humeral internal fixation and a dual lumen right internal [id number] are incidentally noted. There is no pneumothorax. There are small bilateral pleural effusions with associated bibasilar opacities. Cardiomegaly is unchanged. Interstitial thickening has developed. IMPRESSION: Cardiomegaly with interstitial pulmonary edema and small bilateral pleural effusions with associated bibasilar opacities. Medications Administered Furosemide 40 mg IV x 1 in the ER ECG Rate (beats per minute): 77 Rhythm: atrial fibrillation PG Care Time/CCT Total # of Minutes Spent Total Time Spent with Patient: Total time spent is greater than 50% in coordination of care (as documented) at patient's floor/unit and/or counseling patient: Coding Level of Care Code 42821 IN/OBS CONSULT LVL 5,80M Diagnoses ESRD (end stage renal disease) N18.6 Hypercalcemia E83.52 Anemia D64.9 Breast cancer C50.912 Breast location: unspecified site of breast Estrogen receptor status: unspecified Laterality: left Patient sex: female Atrial fibrillation I48.91 Right hip pain M25.551 (4) Breast cancer Breast location: unspecified site of breast Estrogen receptor status: unspecified Laterality: left Patient sex: female Qualified Code(s): C50.912 - Malignant neoplasm of unspecified site of left female breast
[2023-10-17] MEDS: LANTUS PER UNIT CHARGE SQ SCH ×2 (09:13→21:22)
[2023-10-17] MEDS ORDERED: Nursing to Pharmacy Communication SCH (11:45)
--- NOTE | 2023-10-17 15:19 | Communication Note ---
Date of Service: October 17, 2023 Please refer to the H&P dictated by Dr. Susana Elmore earlier this morning for details of presentation on admission. In brief, the patient presented with shortness of breath. She is on dialysis every Tuesday and Tuesday. She was mildly hypoxic at 88% room air and was thought to be fluid overloaded with a chest x-ray showing pulmonary congestion. She was given a dose of IV Lasix with no significant diuresis. She was scheduled for dialysis today per outpatient schedule. Nephrology was consulted for dialysis. She was noted to have irregular heartbeat. EKG confirmed atrial fibrillation. This is a new diagnosis. The patient denies palpitations. She is rate controlled. She is being [facility] to [facility] telemetry for monitoring. She has a [id number] score of 5 (age, congestive heart failure, diabetes mellitus, gender). She will be started on Eliquis p.o. The patient states that she recently had kyphoplasty done by Dr. Adame in [facility]. She currently has low back pain radiating down her right leg. She requests to be seen by Dr. Adame. Consult placed.
--- NOTE | 2023-10-17 16:32 | Electrocardiogram Report ---
Test Reason : Blood Pressure : / mmHG Vent. Rate : 077 BPM Atrial Rate : 000 BPM P-R Int : 000 ms QRS Dur : 124 ms QT Int : 396 ms P-R-T Axes : 000 040 040 degrees QTc Int : 448 ms Sinus rhythm with MObitz 1 AV conduction Non-specific intra-ventricular conduction delay Poor R wave progression, consider anterior [place] vs. lead placement vs. LVH Nonspecific ST abnormality Abnormal ECG When compared with ECG of 14-SEP-2023 11:25, T wave inversion no longer evident in Inferior leads Nonspecific T wave abnormality no longer evident in Lateral leads Reconfirmed by Mario Barcenas ([id number]) on 10/17/2023 4:32:23 PM Referred By: Pat Alejandre Confirmed By:Michoacano Barcenas
--- NOTE | 2023-10-17 16:35 | Electrocardiogram Report ---
Test Reason : Blood Pressure : / mmHG Vent. Rate : 068 BPM Atrial Rate : 087 BPM P-R Int : 000 ms QRS Dur : 122 ms QT Int : 420 ms P-R-T Axes : 000 102 -02 degrees QTc Int : 446 ms Sinus rhythm with Mobitz 1 AV conduction Rightward axis Non-specific intra-ventricular conduction delay Nonspecific ST and T wave abnormality Abnormal ECG When compared with ECG of 16-OCT-2023 22:52, (unconfirmed) Questionable change in QRS axis Nonspecific T wave abnormality now evident in Lateral leads Confirmed by Mario Barcenas ([id number]) on 10/17/2023 4:35:35 PM Referred By: Pat Alejandre Confirmed By:Michoacano Barcenas
[2023-10-17] MEDS: ACETAMINOPHEN 325 MG TAB PO PRN (17:33)
[2023-10-17] MEDS: APIXABAN 5 MG TABLET PO SCH (21:10)
[2023-10-17] MEDS: MIRTAZAPINE TAB 15 MG TAB PO SCH (21:10)
[2023-10-17] MEDS ORDERED: INSULIN ASPART PER UNIT CHARGE ONE (21:14)
[2023-10-18 07:23] LABS: Hematocrit (blood only) 27.9 % (37.0-47.0); Hemoglobin 8.7 g/dl (12.0-16.0); Mean Corpuscular Hemoglobin 33.2 pg (25.0-34.0); Mean Corpuscular Hgb Conc 31.2 g/dL (32.0-36.0); Mean Corpuscular Volume 106.5 fL (80.0-100.0); Mean Platelet Volume 10.3 fL (9.4-12.4); Nucleated RBC # (auto) 0.02 K/uL (0.00-0.12); Nucleated RBC % (auto) 0.3 %; Platelet Count 170 K/uL (130-400); RDW Coefficient of Variation 15.7 % (11.5-14.5); RDW Standard Deviation 60.4 fL (36.4-46.3); Red Blood Count 2.62 M/uL (4.20-5.40); White Blood Count 6.37 K/ul (4.8-10.8)
[2023-10-18 07:44] LABS: BUN Creatinine Ratio 7.6 (10-20); Calcium 10.3 mg/dl (8.6-10.3); Creatinine Clr Calc Pharmacy 19.6 ml/min; Est GFR (African American) 19.7 ml/min; Potassium 3.1 mmol/L (3.5-5.1)
[2023-10-18] MEDS: allopurinoL 100 MG TAB PO SCH (09:02)
[2023-10-18] MEDS: METOPROLOL SUCC 25MG EXT REL TAB PO SCH (09:03)
[2023-10-18] MEDS: VENLAFAXINE HCL XR 75 MG CAPXR PO SCH (09:03)
[2023-10-18] MEDS: predniSONE 10 MG TABLET PO SCH (09:03)
[2023-10-18] MEDS: APIXABAN 5 MG TABLET PO SCH (09:04)
[2023-10-18] MEDS: LANTUS PER UNIT CHARGE SQ SCH ×2 (09:09→21:33)
--- NOTE | 2023-10-18 10:45 | Nephrology Progress Note ---
Date of Service October 18, 2023 Assessment & Plan (1) ESRD (end stage renal disease): Plan: * Outpatient HD Rx: M&F [facility] [place] 2.5hr, 2K 2Ca, F-180NR, EDW 94.5 kg (this likely needs to be adjusted to account for progressive weight loss) * Completed HD yesterday with adequate UF and clearance * Renal diet and 1.2 daily fluid restriction (2) Hypercalcemia: Plan: * CT abd/plv without contrast today (3) Anemia: Plan: * Outpatient Rx Venofer 100 mg IVP with HD and Micera 30 IVP q 2 weeks with HD * TUNDE held with Hgb >11 (4) Breast cancer: (5) Right hip pain: Plan: * Tenderness along the R lateral hip / bursa. * Ortho consult pending. * Management per hospitalist. Admission and Anticipated Discharge Date Admission Date: October 17, 2023 Subjective No acute events overnight. I met with Pauline and Adele this morning. Pauline is feeling much better. She tolerated HD yesterday with net UF 2 L. She is breathing more comfortably and was off supplemental O2 overnight. Hip pain also improved but tenderness along the lateral aspect persists. Pauline actually mentioned that she is feeling like she may be able to go home today. They were hoping to complete CT scheduled by her PCP while inpatient. We discussed concerns regarding iodinated contrast and ideally planning for HD within 24 hours of the scan. I've reordered a CT abd/plv without contrast to start today and communicated this plan with Dr. Franklin. No chest pains or palpitations. EKG read as type II AVB. Findings not consistent with Afib. Review of Systems Review of Systems: All systems reviewed & are unremarkable except as noted in HPI & below Physical Exam Constitutional: well developed; no acute distress Eyes: no scleral abnormality and no corneal abnormality Neck: normal visual inspection and trachea midline Respiratory: normal respiratory effort Auscultation: lungs clear to auscultation bilaterally Cardiovascular: Rate/Rhythm: regular rate and + irregularly irregular Heart Sounds: normal S1 and normal S2 Extremities: + edema Musculoskeletal: Extremities: no cyanosis and no clubbing Skin: normal turgor; no lesions Neurologic: Motor/Sensory: no tremor and no asterixis Psychiatric: Orientation: alert and oriented x 3 Results & Data Vital Signs (Past 12 Hours) Vital Signs Temp Pulse Pulse Pulse Resp BP Pulse Ox 10/18/23 07:41 36.4 C L 74 16 125/83 100 10/18/23 05:48 72 10/18/23 04:53 36.5 C 67 18 121/73 99 10/17/23 23:11 36.5 C 102 H 18 117/67 96 O2 Del Method O2 Flow Rate 10/18/23 07:41 Nasal Cannula 2 10/18/23 05:48 10/18/23 04:53 Nasal Cannula 2 10/17/23 23:11 Room Air Laboratory Results Laboratory Results - last 24 hr 10/17/23 10/17/23 10/17/23 11:45 17:27 20:14 WBC RBC Hgb Hct MCV MCH MCHC RDW Std Deviation RDW Coeff of Amparo Plt Count MPV Absolute Nucleated RBC Nucleated RBC % (auto) Sodium Potassium Chloride Carbon Dioxide Anion Gap BUN Creatinine Est Cr Clr Drug Dosing Est GFR ( Amer) Est GFR (Non-Af Amer) BUN/Creatinine Ratio Glucose POC Glucose 125 H 135 H 171 H Calcium 10/18/23 10/18/23 07:05 08:15 WBC 6.37 RBC 2.62 L Hgb 8.7 L Hct 27.9 L MCV 106.5 H MCH 33.2 MCHC 31.2 L RDW Std Deviation 60.4 H RDW Coeff of Amparo 15.7 H Plt Count 170 MPV 10.3 Absolute Nucleated RBC 0.02 Nucleated RBC % (auto) 0.3 Sodium 135 L Potassium 3.1 L D Chloride 100 Carbon Dioxide 30 Anion Gap 5 BUN 20 Creatinine 2.64 H D Est Cr Clr Drug Dosing 19.6 Est GFR ( Amer) 19.7 Est GFR (Non-Af Amer) 17.0 BUN/Creatinine Ratio 7.6 L Glucose 78 POC Glucose 90 Calcium 10.3 PG Care Time/CCT Total # of Minutes Spent Total Time Spent with Patient: Total time spent is greater than 50% in coordination of care (as documented) at patient's floor/unit and/or counseling patient: Coding Level of Care Code 76431 SUB INP/OBS CARE 3/50MIN Diagnoses ESRD (end stage renal disease) N18.6 Hypercalcemia E83.52 Anemia D64.9 Breast cancer C50.912 Breast location: unspecified site of breast Estrogen receptor status: unspecified Laterality: left Patient sex: female Right hip pain M25.551 (4) Breast cancer Breast location: unspecified site of breast Estrogen receptor status: unspecified Laterality: left Patient sex: female Qualified Code(s): C50.912 - Malignant neoplasm of unspecified site of left female breast
[2023-10-18] MEDS: LIDOCAINE 5% 1 PATCH TD SCH (12:13)
--- NOTE | 2023-10-18 13:50 | Magnetic Resonance Report ---
MRI OF THE LUMBAR SPINE WITHOUT CONTRAST CLINICAL HISTORY: back/RLE pain; recent kypho L1,L2; mets breast CA COMPARISON STUDY: Lumbar spine CT and lumbar spine radiographs September 13, 2023. TECHNIQUE: Utilizing a 1.5 Ania magnet and dedicated coil, multiplanar, multiecho imaging of the jacque ar spine was performed without IV contrast. FINDINGS: For purposes of numbering on this exam, the L5-S1 disc space is assigned to axial image 10 of 14 of t he lower axial sequences. There is mild dextroscoliosis of the lumbar spine. L1 and L2 pathologic fra ctures are noted. Postprocedural findings consistent with kyphoplasty are present. There is marrow ed elisha throughout the L1 vertebral body. There is 4 mm of retropulsion of the L1 vertebral body, minimal ly increased since CT of September 13, 2023. No epidural extension of tumor is identified although exa m is compromised given lack of postcontrast imaging and motion artifact. Several additional T1 and T2 hypointense lesions are suggestive of additional metastases, including a 1.2 cm T10 lesion and a 8 m m left iliac bone lesion. Probable additional lesion within the L4 vertebral body is noted. No additi onal pathologic fractures are identified. The conus terminates at the upper L2 level. This exam is mo derately compromised by motion artifact. Heterogeneity of the liver is incidentally noted. Mildly enl arged retroperitoneal lymph nodes are present. L1-2: There is mild central canal stenosis due to retropulsion of the L1 vertebral body. There is mil d narrowing of both neural foramen. L2-3: Moderate facet arthrosis is present. Central canal and neural foramen are patent. L3-4: There is severe disc space narrowing with severe facet arthrosis and ligamentous hypertrophy. T here is mild narrowing of the central canal and the neural foramen. L4-5: There is severe disc space narrowing with disc bulge, facet arthrosis and ligamentous hypertrop hy. Moderate to severe central canal stenosis is noted. Patent AP diameter canal is 5 mm. There is mo derate to severe bilateral neural foraminal stenosis. L5-S1: Moderate disc space narrowing is noted with disc bulge. There is facet arthrosis. There is mil d narrowing of the central canal and moderate narrowing of both neural foramen. IMPRESSION: 1. Exam compromised by motion artifact. Redemonstration of L1 and L2 pathologic fractures status post kyphoplasty at these levels. Mild retropulsion of the L1 vertebral body. Several additional skeletal metastases, as described above. No additional pathologic fractures. 2. Moderate multilevel degenerative disc disease and facet arthrosis within the lumbar spine. Moderat e to severe central canal stenosis at L4-L5. 3. Multilevel neural foraminal stenosis, as above. 4. Heterogeneity of the liver. This is suboptimally assessed on this exam but raises the possibility of metastatic disease and can be assessed on the CT of the abdomen and pelvis which has been ordered. 5. Mildly enlarged retroperitoneal lymph nodes which can also be assessed on CT. ACT 112: Negative or not required by law. Electronically signed by: Bob Alejandre M.D. 10/18/2023 1:49 PM
--- NOTE | 2023-10-18 15:00 | Hospitalist Progress Note ---
Date of Service October 18, 2023 Assessment & Plan (1) Shortness of breath: Plan: This was secondary to volume overload from acute on chronic HFpEF Patient was dialyzed on 10/17 Breathing better now Outpatient dialysis to be continued Tuesday and Tuesday schedule (2) ESRD (end stage renal disease): Plan: Outpatient dialysis schedule Tuesday and Tuesday to be continued Nephrology on board (3) Type 2 diabetes mellitus: Plan: Well controlled. Last TgmP4C=4.4 Patient is self administering her insulin while in the hospital (4) Breast cancer: Plan: Patient is s/p XRT - she is to followup in [place] for routine imaging in several months Patient had requested that her CT be done while she is in the hospital Business Development Consultant ordered CT chest abdomen and pelvis without contrast. (5) Right hip pain: Plan: Patient has right hip pain and back pain Recent kyphoplasty due to bone mets by Dr. Wendi Adame consulted MRI lumbar spine completed, awaiting orthospine consult (6) Mobitz type 1 second degree AV block: Plan: Patient was noted to have irregular heart beat EKG was initially thought to be atrial fibrillation but was read by electrical engineering manager as sinus rhythm with Mobitz type I second-degree AV block Will discontinue Eliquis Admission and Anticipated Discharge Date Admission Date: October 17, 2023 Subjective Patient says that she is breathing better today after her dialysis yesterday. Denies chest pain or shortness of breath. No palpitations. The back pain and right lower extremity pain is tolerable today. She is accompanied by her partner in the room. Review of Systems Review of Systems: All systems reviewed & are unremarkable except as noted in Subjective Physical Exam Physical Exam: General: Awake, conversant Heart: S1, S2/regular rate and rhythm, no murmur rubs or gallops Lungs: Clear to auscultation bilaterally. Normal effort Abdomen: Soft/nontender/nondistended. No hepatosplenomegaly Extremities: No clubbing/cyanosis. No edema Behavior: Appropriate, cooperative Results & Data Results & Data Vital Signs (Past 12 Hours) Vital Signs Temp Pulse Pulse Pulse Resp BP Pulse Ox 10/18/23 11:35 10/18/23 11:19 36.4 C L 74 18 139/84 99 10/18/23 07:41 36.4 C L 74 16 125/83 100 10/18/23 05:48 72 10/18/23 04:53 36.5 C 67 18 121/73 99 O2 Del Method O2 Flow Rate 10/18/23 11:35 Nasal Cannula 2 10/18/23 11:19 Nasal Cannula 2 10/18/23 07:41 Nasal Cannula 2 10/18/23 05:48 10/18/23 04:53 Nasal Cannula 2 Laboratory Results Abnormal lab results 10/17/23 10/17/23 10/18/23 Range/Units 17:27 20:14 07:05 RBC 2.62 L (4.20-5.40) M/uL Hgb 8.7 L (12.0-16.0) g/dl Hct 27.9 L (37.0-47.0) % MCV 106.5 H (80.0-100.0) fL MCHC 31.2 L (32.0-36.0) g/dL RDW Std Deviation 60.4 H (36.4-46.3) fL RDW Coeff of Amparo 15.7 H (11.5-14.5) % Sodium 135 L (136-145) mmol/L Potassium 3.1 L D (3.5-5.1) mmol/L Creatinine 2.64 H D (0.6-1.2) mg/dl BUN/Creatinine Ratio 7.6 L (10-20) POC Glucose 135 H 171 H (70-99) mg/dl PG Care Time/CCT Total # of Minutes Spent Total Time Spent with Patient: Total time spent is greater than 50% in coordination of care (as documented) at patient's floor/unit and/or counseling patient: Coding Level of Care Code 66847 SUB INP/OBS CARE MIN Diagnoses Shortness of breath R06.02 ESRD (end stage renal disease) N18.6 Type 2 diabetes mellitus E11.9 Breast cancer C50.912 Breast location: unspecified site of breast Estrogen receptor status: unspecified Laterality: left Patient sex: female Right hip pain M25.551 Mobitz type 1 second degree AV block I44.1 (4) Breast cancer Breast location: unspecified site of breast Estrogen receptor status: unspecified Laterality: left Patient sex: female Qualified Code(s): C50.912 - Malignant neoplasm of unspecified site of left female breast
[2023-10-18] MEDS: traMADol HCL 50 MG TABLET PO PRN (18:14)
[2023-10-18] MEDS: INSULIN ASPART PER UNIT CHARGE SC SCH ×2 (18:15→21:22)
[2023-10-18] MEDS ORDERED: OPTIRAY 320 500ml IV ONE (20:53)
--- NOTE | 2023-10-18 21:19 | CT Scan Report ---
Exam(s): CT ABDOMEN + PELVIS With Contrast IV Amt: 82 ml optiray 320 EXAM: CT Abdomen and Pelvis With Intravenous Contrast CLINICAL HISTORY: Reason for exam: Metastatic breast cancer. TECHNIQUE: Axial computed tomography images of the abdomen and pelvis with intravenous contrast. CTDI is 35.95 mGy and DLP is 1664.21 mGy-cm. Automated exposure control was utilized for the study. A dose lowering technique was utilized adhering to the principles of ALARA. CONTRAST: Patient received 82 ml optiray 320 of IV contrast COMPARISON: No relevant prior studies available. FINDINGS: Lung bases: See below. Pleural space: Moderate RIGHT and small LEFT pleural effusions. Airspace consolidations at the lung bases, concerning for aspiration pneumonia. ABDOMEN: Liver: Hepatic cirrhosis. Cholecystectomy. Gallbladder and bile ducts: See above. Pancreas: Unremarkable. No mass. No ductal dilation. Spleen: Unremarkable. No splenomegaly. Adrenals: Unremarkable. No mass. Kidneys and ureters: No hydronephrosis. Mild renal atrophy. Stomach and bowel: Diverticulosis, without acute diverticulitis. No bowel obstruction. No free air. PELVIS: Appendix: No findings to suggest acute appendicitis. Bladder: Unremarkable. No mass. Reproductive: Calcified uterine fibroid measures 2.1 cm. ABDOMEN and PELVIS: Intraperitoneal space: See above. Bones/joints: Degenerative changes of the spine. RIGHT humerus ORIF. No acute fracture. No dislocation. Soft tissues: LEFT breast mass measures 3.2 x 2.7 cm, correlate for breast cancer. There is mild skin scarring in this location, correlate with medical history. Vasculature: Severe atherosclerotic changes of the renal and abdominal vasculature. Atherosclerotic changes of the aorta. No abdominal aortic aneurysm. Lymph nodes: Unremarkable. No enlarged lymph nodes. IMPRESSION: 1. Moderate RIGHT and small LEFT pleural effusions. Airspace consolidations at the lung bases, concerning for aspiration pneumonia. 2. LEFT breast mass measures 3.2 x 2.7 cm, correlate for breast cancer. There is mild skin scarring in this location, correlate with medical history. 3. Hepatic cirrhosis. Cholecystectomy. 4. No hydronephrosis. Mild renal atrophy. 5. Diverticulosis, without acute diverticulitis. No bowel obstruction. No free air. Electronically signed by: Christophe Ayers MD 10/18/23 21:18 PM
[2023-10-18] MEDS: MIRTAZAPINE TAB 15 MG TAB PO SCH ×2 (21:20→21:24)
[2023-10-18] MEDS: ACETAMINOPHEN 325 MG TAB PO PRN (21:34)
[2023-10-19 07:42] LABS: Hematocrit (blood only) 32.4 % (37.0-47.0); Mean Corpuscular Hemoglobin 32.9 pg (25.0-34.0); Mean Corpuscular Hgb Conc 30.9 g/dL (32.0-36.0); Mean Corpuscular Volume 106.6 fL (80.0-100.0); Mean Platelet Volume 10.5 fL (9.4-12.4); Platelet Count 219 K/uL (130-400); RDW Coefficient of Variation 15.9 % (11.5-14.5); RDW Standard Deviation 61.9 fL (36.4-46.3); Red Blood Count 3.04 M/uL (4.20-5.40)
[2023-10-19 07:48] LABS: Calcium 10.8 mg/dl (8.6-10.3); Potassium 3.3 mmol/L (3.5-5.1)
[2023-10-19 07:54] LABS: Creatinine Clr Calc Pharmacy 15.5 ml/min; Est GFR (African American) 14.8 ml/min; Est GFR (Non-African American) 12.8 ml/min
--- NOTE | 2023-10-19 09:40 | Nephrology Progress Note ---
Date of Service October 19, 2023 Assessment & Plan (1) ESRD (end stage renal disease): Plan: * Outpatient HD Rx: M&F [facility] 2.5hr, 2K 2Ca, F-180NR. EDW will be adjusted accordingly. * Orders for HD today were entered into the EHR and reviewed with the HD RN. Additional UF will be provided as tolerated. * Renal diet and 1.2 daily fluid restriction * Follow up with outpatient HD as scheduled on Tuesday. (2) Hypercalcemia: Plan: * CT abd/plv reviewed. * Importance of regular HD reviewed. (3) Breast cancer: Plan: * Follow up with oncology. * MRI LS spine and CT abd/plv will be provided on CT for Pauline to take with her at discharge. She is advised to take these studies to her oncologist for review. (4) Right hip pain: (5) Pleural effusion: Plan: * CT reviewed. * Prospective monitoring will be provided. * Challenge with additional UF as tolerated. * Importance of adherence with HD stressed. Admission and Anticipated Discharge Date Admission Date: October 17, 2023 Subjective I met with Pauline and Adele this morning. I discussed the plan of care with Dr. Franklin and the patient's PCP (Pat Alejandre). Pauline would like to go home today. She feels well. CT findings were reviewed. She was agreeable to a short HD treatment this morning. Additional UF will be provided as tolerated. She does not endorse significant hip pain this AM. She is breathing more comfortably. Review of Systems Review of Systems: All systems reviewed & are unremarkable except as noted in HPI & below Physical Exam Constitutional: well developed; no acute distress Eyes: no scleral abnormality and no corneal abnormality Neck: normal visual inspection and trachea midline Respiratory: normal respiratory effort Auscultation: lungs clear to auscultation bilaterally Cardiovascular: Rate/Rhythm: regular rate and + irregularly irregular Heart Sounds: normal S1 and normal S2 Extremities: + edema Musculoskeletal: Extremities: no cyanosis and no clubbing Skin: normal turgor; no lesions Neurologic: Motor/Sensory: no tremor and no asterixis Psychiatric: Orientation: alert and oriented x 3 Results & Data Vital Signs (Past 12 Hours) Vital Signs Temp Pulse Pulse Resp BP BP Pulse Ox 10/19/23 08:11 36.5 C 53 L 18 104/60 94 10/19/23 03:12 36.6 C 74 18 104/45 L 94 10/19/23 00:17 81 10/18/23 23:39 10/18/23 23:10 36.8 C 81 18 130/69 93 O2 Del Method O2 Flow Rate 10/19/23 08:11 Room Air 10/19/23 03:12 Room Air 10/19/23 00:17 10/18/23 23:39 Room Air, Nasal Cannula 2 10/18/23 23:10 Room Air Laboratory Results Laboratory Results - last 24 hr 10/18/23 10/18/23 10/19/23 17:23 20:31 06:51 WBC 7.90 RBC 3.04 L Hgb 10.0 L Hct 32.4 L MCV 106.6 H MCH 32.9 MCHC 30.9 L RDW Std Deviation 61.9 H RDW Coeff of Amparo 15.9 H Plt Count 219 MPV 10.5 Sodium 134 L Potassium 3.3 L Chloride 99 Carbon Dioxide 27 Anion Gap 8 BUN 30 H Creatinine 3.35 H D Est Cr Clr Drug Dosing 15.5 Est GFR ( Amer) 14.8 Est GFR (Non-Af Amer) 12.8 BUN/Creatinine Ratio 9.0 L Glucose 90 POC Glucose 141 H 134 H Calcium 10.8 H 10/19/23 08:24 WBC RBC Hgb Hct MCV MCH MCHC RDW Std Deviation RDW Coeff of Amparo Plt Count MPV Sodium Potassium Chloride Carbon Dioxide Anion Gap BUN Creatinine Est Cr Clr Drug Dosing Est GFR ( Amer) Est GFR (Non-Af Amer) BUN/Creatinine Ratio Glucose POC Glucose [address] Abdomen and Pelvis With Intravenous Contrast FINDINGS: Lung bases: See below. Pleural space: Moderate RIGHT and small LEFT pleural effusions. Airspace consolidations at the lung bases, concerning for aspiration pneumonia. ABDOMEN: Liver: Hepatic cirrhosis. Cholecystectomy. Gallbladder and bile ducts: See above. Pancreas: Unremarkable. No mass. No ductal dilation. Spleen: Unremarkable. No splenomegaly. Adrenals: Unremarkable. No mass. Kidneys and ureters: No hydronephrosis. Mild renal atrophy. Stomach and bowel: Diverticulosis, without acute diverticulitis. No bowel obstruction. No free air. PELVIS: Appendix: No findings to suggest acute appendicitis. Bladder: Unremarkable. No mass. Reproductive: Calcified uterine fibroid measures 2.1 cm. ABDOMEN and PELVIS: Intraperitoneal space: See above. Bones/joints: Degenerative changes of the spine. RIGHT humerus ORIF. No acute fracture. No dislocation. Soft tissues: LEFT breast mass measures 3.2 x 2.7 cm, correlate for breast cancer. There is mild skin scarring in this location, correlate with medical history. Vasculature: Severe atherosclerotic changes of the renal and abdominal vasculature. Atherosclerotic changes of the aorta. No abdominal aortic aneurysm. Lymph nodes: Unremarkable. No enlarged lymph nodes. IMPRESSION: 1. Moderate RIGHT and small LEFT pleural effusions. Airspace consolidations at the lung bases, concerning for aspiration pneumonia. 2. LEFT breast mass measures 3.2 x 2.7 cm, correlate for breast cancer. There is mild skin scarring in this location, correlate with medical history. 3. Hepatic cirrhosis. Cholecystectomy. 4. No hydronephrosis. Mild renal atrophy. 5. Diverticulosis, without acute diverticulitis. No bowel obstruction. No free air. PG Care Time/CCT Total # of Minutes Spent Total Time Spent with Patient: Total time spent is greater than 50% in coordination of care (as documented) at patient's floor/unit and/or counseling patient: Coding Level of Care Code 95360 SUB INP/OBS CARE 3/50MIN Diagnoses ESRD (end stage renal disease) N18.6 Hypercalcemia E83.52 Breast cancer C50.912 Breast location: unspecified site of breast Estrogen receptor status: unspecified Laterality: left Patient sex: female Right hip pain M25.551 Pleural effusion J90 (3) Breast cancer Breast location: unspecified site of breast Estrogen receptor status: unspecified Laterality: left Patient sex: female Qualified Code(s): C50.912 - Malignant neoplasm of unspecified site of left female breast
[2023-10-19] MEDS: INSULIN ASPART PER UNIT CHARGE SC SCH ×2 (09:56→12:24)
[2023-10-19] MEDS: LANTUS PER UNIT CHARGE SQ SCH (09:57)
--- NOTE | 2023-10-19 11:00 | Consultation ---
Date of Consultation October 19, 2023 Assessment & Plan (1) Back pain: Pauline is a 73-year-old female with metastatic breast CA and end-stage renal disease status post kyphoplasty on September 16, 2023 Dr. Adame who presents with shortness of breath. Also has back pain. Dr. Adame has reviewed imaging and treatment plan. There are no acute fractures on her MRI. She does have severe spinal stenosis but again is a very poor surgical candidate. Would recommend follow-up with pain management. Orthopedically stable. History of Present Illness Reason for Consultation: Back pain status post kyphoplasty on 09/16/2023. Attending Physician: Flower Franklin MD History of Present Illness Pauline is a well-known 73-year-old to us. She has metastatic breast CA. On 09/16/2023 she underwent kyphoplasty of L1 and L2 by Dr. Adame. She presents to today's to the hospital with continued back pain. She presented to the ER in October 17 with shortness of breath. She also has end-stage renal disease and is on dialysis. I attempted to see the patient this morning but she is in dialysis. Allergies Allergy/AdvReac Type Severity Reaction Status Date / Time amoxicillin Allergy Severe LIPS Verified 06/28/23 13:29 SWELLED, "RED ALL OVER" doxycycline Allergy Severe LIPS Verified 06/28/23 13:29 SWELLED, "RED ALL OVER". cephalexin [From Keflex] Allergy Intermediate skin Verified 06/28/23 13:29 starts to peel off sulfamethoxazole Allergy Unknown Unknown Verified 06/28/23 13:29 [From Bactrim] trimethoprim [From Bactrim] Allergy Unknown Unknown Verified 06/28/23 13:29 atorvastatin AdvReac Intermediate Myalgia Verified 06/28/23 13:29 Home Medications Medication Instructions Recorded Confirmed Type omega-3 fatty acids 1,000 mg 2,000 mg (2 x 1,000 mg) PO BID 07/19/22 10/16/23 Rx capsule #360 caps allopurinol 100 mg tablet 50 mg (1/2 x 100 mg) PO DAILY #45 06/28/23 10/16/23 Rx tabs furosemide 40 mg tablet 40 mg PO BID #180 tabs 06/28/23 10/16/23 Rx insulin aspart U-100 100 unit/mL See Rx Instructions subcut 06/28/23 10/16/23 Rx (3 mL) subcutaneous pen (Novolog DIRECTED #135 mL FlexPen U-100 Insulin aspart) lidocaine 5 % topical patch 1 patch topical DAILY #30 ea 06/28/23 10/16/23 Rx metoprolol succinate 25 mg 25 mg PO DAILY #90 tabs 06/28/23 10/16/23 Rx tablet,extended release 24 hr pen needle, diabetic 32 gauge x #600 ea 06/28/23 10/16/23 Rx 5/32" (BD Sheila 2nd Gen Pen Needle) venlafaxine 75 mg capsule,extended 75 mg PO DAILY #90 caps 06/28/23 10/16/23 Rx release 24 hr prednisone 10 mg tablet 10 mg PO DAILY #30 tabs 09/06/23 10/16/23 Rx insulin glargine 100 unit/mL (3 10 unit subcut BID 09/13/23 10/16/23 History mL) subcutaneous pen (Lantus Solostar U-100 Insulin) mirtazapine 7.5 mg tablet 7.5 mg PO HS #30 tabs 10/05/23 10/16/23 Rx ondansetron HCl 4 mg tablet 4 mg PO Q4H PRN nausea and 10/05/23 10/16/23 Rx vomiting #30 tabs oxycodone 5 mg tablet 5 mg PO Q4H PRN pain #30 tabs 10/05/23 10/16/23 Rx tramadol 50 mg tablet 50 mg PO Q6 PRN Pain 10/16/23 10/16/23 History Patient History Medical History 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 (~09/13/23) Intractable back pain CKD (chronic kidney disease) stage V requiring chronic dialysis Elevated troponin Anemia Iron deficiency anemia (HFpEF) heart failure with preserved ejection fraction Mobitz type 1 second degree AV block Breast cancer diagnosed 2020 Statin myopathy Hyperuricemia Crystal arthropathy Candidal intertrigo Chronic stasis dermatitis Dyslipidemia Seborrheic dermatitis Type 2 diabetes mellitus HTN (hypertension) GERD (gastroesophageal reflux disease) MCKENZIE (nonalcoholic steatohepatitis) Surgical History History of tonsillectomy and adenoidectomy Hx of cholecystectomy History of appendectomy Humerus fracture surgical repair Family History Father Depression Diabetes Mother Hypertension Kidney stones Gallbladder disease Denies family history of Ovarian cancer Prostate cancer Myocardial infarction Breast cancer Colorectal cancer Social History Smoking Status: Never smoker Second Hand Exposure: No; Do You Dip or Chew Tobacco: No; Hx Alcohol Use: No Hx Substance Use: No Preferred Language: Arabic Communication Ability: Effective Visual Impairment: Limited Hearing Ability: Normal Hvac Estimator Required: No Beliefs That Will Affect Care: None marital status: Current Living Situation: Significant Other Current Living Situation Comment: lives at home with and caregiver 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 Other Information That Helps Us Care for You: No Feels Safe at Home: Yes Safety Concerns: Feels Safe At This Time Childhood Exposure to Second-Hand Smoke: No Diet: regular Dental Care, Regularly: Yes Physical Activity Frequency: Does not Exercise Seatbelt Use: never Sunscreen Use: No Assistive Devices: Bedside Commode, Cane, Scooter/Electric Scooter and Walker Review of Systems Review of Systems: All systems reviewed & are unremarkable except as noted in HPI & below Results & Data Vital Signs (Past 12 Hours) Vital Signs Temp Pulse Pulse Pulse Resp BP BP 10/19/23 10:30 64 156/75 H 10/19/23 10:00 62 150/62 H 10/19/23 09:43 36.6 C 66 141/69 H 10/19/23 09:35 36.6 C 66 10/19/23 08:11 36.5 C 53 L 18 10/19/23 06:24 69 10/19/23 03:12 36.6 C 74 18 10/19/23 00:17 81 10/18/23 23:39 10/18/23 23:10 36.8 C 81 18 130/69 BP Pulse Ox O2 Del Method O2 Flow Rate 10/19/23 10:30 10/19/23 10:00 10/19/23 09:43 10/19/23 09:35 10/19/23 08:11 104/60 94 Room Air 10/19/23 06:24 10/19/23 03:12 104/45 L 94 Room Air 10/19/23 00:17 10/18/23 23:39 Room Air, Nasal Cannula 2 10/18/23 23:10 93 Room Air Diagnostic Findings [place], [place] [phone] Magnetic Resonance Report Patient: PAULINE CEBALLOS Admit Date: 10/17/23 MR#: [id number] Address1: [address] [place] [address] Acct ID:[id number] Address2: Date: 1950 [facility] Zip: [place] [address] Age: 73 Location: Sex: F Room/Bed: [facility] Att Phy: Flower Franklin MD Diagnosis: SHORTNESS OF BREATH Joanna Phy: aPt Alejandre MD Service Date: 10/18/23 Fam Phy: Interpreting Phy: Bob Alejandre MDAdmit Phy: Susana Elmore D.O. Ordering Phy: Salome Escoto cc: ~ MRI OF THE LUMBAR SPINE WITHOUT CONTRAST CLINICAL HISTORY: back/RLE pain; recent kypho L1,L2; mets breast CA COMPARISON STUDY: Lumbar spine CT and lumbar spine radiographs September 13, 2023. TECHNIQUE: Utilizing a 1.5 Ania magnet and dedicated coil, multiplanar, multiecho imaging of the lumbar spine was performed without IV contrast. FINDINGS: For purposes of numbering on this exam, the L5-S1 disc space is assigned to axial image 10 of 14 of the lower axial sequences. There is mild dextroscoliosis of the lumbar spine. L1 and L2 pathologic fractures are noted. Postprocedural findings consistent with kyphoplasty are present. There is marrow edema throughout the L1 vertebral body. There is 4 mm of retropulsion of the L1 vertebral body, minimally increased since CT of September 13, 2023. No epidural extension of tumor is identified although exam is compromised given lack of postcontrast imaging and motion artifact. Several additional T1 and T2 hypointense lesions are suggestive of additional metastases, including a 1.2 cm T10 lesion and a 8 mm left iliac bone lesion. Probable additional lesion within the L4 vertebral body is noted. No additional pathologic fractures are identified. The conus terminates at the upper L2 level. This exam is moderately compromised by motion artifact. Heterogeneity of the liver is incidentally noted. Mildly enlarged retroperitoneal lymph nodes are present. L1-2: There is mild central canal stenosis due to retropulsion of the L1 ve rtebral body. There is mild narrowing of both neural foramen. L2-3: Moderate facet arthrosis is present. Central canal and neural foramen are patent. L3-4: There is severe disc space narrowing with severe facet arthrosis and ligamentous hypertrophy. There is mild narrowing of the central canal and the neural foramen. L4-5: There is severe disc space narrowing with disc bulge, facet arthrosis and ligamentous hypertrophy. Moderate to severe central canal stenosis is noted. Patent AP diameter canal is 5 mm. There is moderate to severe bilateral neural foraminal stenosis. L5-S1: Moderate disc space narrowing is noted with disc bulge. There is facet arthrosis. There is mild narrowing of the central canal and moderate narrowing of both neural foramen. IMPRESSION: 1. Exam compromised by motion artifact. Redemonstration of L1 and L2 pathologic fractures status post kyphoplasty at these levels. Mild retropulsion of the L1 vertebral body. Several additional skeletal metastases, as described above. No additional pathologic fractures. 2. Moderate multilevel degenerative disc disease and facet arthrosis within the lumbar spine. Moderate to severe central canal stenosis at L4-L5. 3. Multilevel neural foraminal stenosis, as above. 4. Heterogeneity of the liver. This is suboptimally assessed on this exam but raises the possibility of metastatic disease and can be assessed on the CT of the abdomen and pelvis which has been ordered. 5. Mildly enlarged retroperitoneal lymph nodes which can also be assessed on CT. ACT 112: Negative or not required by law. Electronically signed by: Bob Alejandre M.D. 10/18/2023 1:49 PM Dictated: 10/18/23 1332 Transcribed: 10/18/23 1332
[2023-10-19] MEDS: traMADol HCL 50 MG TABLET PO PRN (11:32)
[2023-10-19] MEDS: LIDOCAINE 5% 1 PATCH TD SCH (12:11)
[2023-10-19] MEDS: allopurinoL 100 MG TAB PO SCH (12:14)
[2023-10-19] MEDS: predniSONE 10 MG TABLET PO SCH (12:14)
[2023-10-19] MEDS: METOPROLOL SUCC 25MG EXT REL TAB PO SCH (12:14)
[2023-10-19] MEDS: VENLAFAXINE HCL XR 75 MG CAPXR PO SCH (12:15)
--- NOTE | 2023-10-19 14:30 | Discharge Summary ---
Date of Service October 19, 2023 Admission HPI Per Admitting Provider Pauline Beyer is a pleasant 73yo female with history of Breast cancer, HFpEF, HTN, HLP, MCKENZIE and ESRD on HD Tuesday and Tuesday. She presents tonight with shortness of breath that started yesterday. Symptoms have been progressive over the last day. She receives HD q Tuesday and Tuesday -reports that she still makes a normal amount of urine and the dialysis is for toxin removal rather than fluid. She follows with Dr. Solis. Last full treatment on Tuesday10/14/22. Patient mildly hypoxic in the ER at 88% on room air. She does not use oxygen at home. Was placed on 2L NC with improvement. No additional complaints - she denies fever, chills, chest pain, palpitations, abdominal pain, nausea, vomiting, diarrhea. Denies edema but has had some orthopnea. ER Course: Lasix 40mg IV Admission Exam Per Admitting Provider General: patient resting comfortably, NAD, non-toxic in appearance, AA&O x 4 Skin: warm, dry, intact, no rashes or lesions HEENT: NC/AT, PERRL, EOMI, anicteric sclera, conjunctiva without injection, external ear normal to inspection and nontender, nares patent, moist mucus membranes, dentition intact, no oropharyngeal lesions, neck supple, trachea midline, no LAD, no thyromegaly, no JVD Heart: +S1/S2, regular, no m/r/g, right chest perm-cath in place Lungs: equal air entry bilaterally, crackles in bilateral bases Abd: +BS, soft, NT/ND, no masses/organomegaly/ascites Ext: warm, 2+ pulses in UE/LE bilaterally, no clubbing/cyanosis or edema Neuro: nonfocal, patient AA&O x 4, speech intact, no facial droop, moving all extremities on command with equal strength 5/5 Principal Diagnosis Acute on chronic HFpEF leading to volume overload requiring dialysis ESRD Discharge Exam General: Awake, conversant Heart: S1, S2/regular rate and rhythm, no murmur rubs or gallops Lungs: Clear to auscultation bilaterally. Normal effort Abdomen: Soft/nontender/nondistended. No hepatosplenomegaly Extremities: No clubbing/cyanosis. No edema Behavior: Appropriate, cooperative Discharge Data Allergies Allergy/AdvReac Type Severity Reaction Status Date / Time amoxicillin Allergy Severe LIPS Verified 06/28/23 13:29 SWELLED, "RED ALL OVER" doxycycline Allergy Severe LIPS Verified 06/28/23 13:29 SWELLED, "RED ALL OVER". cephalexin [From Keflex] Allergy Intermediate skin Verified 06/28/23 13:29 starts to peel off sulfamethoxazole Allergy Unknown Unknown Verified 06/28/23 13:29 [From Bactrim] trimethoprim [From Bactrim] Allergy Unknown Unknown Verified 06/28/23 13:29 atorvastatin AdvReac Intermediate Myalgia Verified 06/28/23 13:29 Consultations 10/17/23 00:29 ED Decision to Admit Stat 10/17/23 01:11 Consult Nephrology Routine 10/17/23 15:39 Consult Orthopedic Spine Surgery Routine 10/19/23 09:21 Burn CD for patient Routine Ordered Studies 10/18/23 10:33 MR lumbar spine wo con Routine 10/18/23 19:46 CT Abd and Pelvis [CT abd pelvis IV con only] Routine Hospital Course (1) Shortness of breath: This was secondary to volume overload from acute on chronic HFpEF Patient was dialyzed on 10/17 and 10/19 Breathing better now Outpatient dialysis to be continued Tuesday and Tuesday schedule (2) ESRD (end stage renal disease): Outpatient dialysis schedule Tuesday and Tuesday to be continued Nephrology on board (3) Type 2 diabetes mellitus: Well controlled. Last SwxT2M=3.4 Patient was self administering her insulin while in the hospital (4) Breast cancer: Patient is s/p XRT - she is to followup in [place] for routine imaging in several months Patient had requested that her CT be done while she is in the hospital Sales Leader ordered CT chest abdomen and pelvis without contrast. CT showed bilateral pleural effusion for which the patient was dialyzed again today 10/19. CT will need to be followed by PCP (5) Right hip pain: Patient has right hip pain and back pain Recent kyphoplasty due to bone mets by Dr. Adame MRI lumbar spine completed [facility] team cleared the patient for discharge as no acute fracture seen (6) Mobitz type 1 second degree AV block: Patient was noted to have irregular heart beat EKG was initially thought to be atrial fibrillation but was read by bus aide as sinus rhythm with Mobitz type I second-degree AV block Discontinued Eliquis Plan Discharge to home today Total Time Total Time Spent Total Time Spent (In Minutes): 35 Discharge Plan Discharge Items Patient Disposition: Home - Self-Care Reason For Visit: SHORTNESS OF BREATH Discharge Diagnosis: Acute on chronic HFpEF leading to volume overload requiring dialysis ESRD Activity: Resume your previous activity Non-emergency contact: Primary Care Provider Call non-emergency contact if: you have any medication questions and your symptoms worsen Follow-up/Referrals: Jerrica Claudio PA-C [Physician Manager Hydraulic] - 10/25/23 1:30 pm Pat Alejandre MD [Primary Care Provider] - Diet: Carb Consistent or DM2 Addtl Attending Provider Instructions: Advised to follow-up with PCP in 1 week Pending Studies at Discharge: No Stand-Alone Forms: My [facility] [employer] Medications and DC Order Prescriptions: Continued omega-3 fatty acids 1,000 mg capsule 2,000 mg PO BID Qty: 360 3RF prednisone 10 mg tablet 10 mg PO DAILY Qty: 30 3RF allopurinol 100 mg tablet 50 mg PO DAILY Qty: 45 3RF furosemide 40 mg tablet 40 mg PO BID Qty: 180 3RF insulin aspart U-100 [Novolog FlexPen U-100 Insulin] 100 unit/mL (3 mL) insulin pen See Rx Instructions SQ DIRECTED MDD 225 units Qty: 135 3RF Rx Instructions: Take with meals subcutaneously as directed; Carb ratio 1:2; Correction Factor 1:18 for BG > 200 metoprolol succinate 25 mg tablet extended release 24 hr 25 mg PO DAILY Qty: 90 3RF venlafaxine 75 mg capsule,extended release 24hr 75 mg PO DAILY Qty: 90 3RF (DME) pen needle, diabetic [BD Sheila 2nd Gen Pen Needle] 32 gauge x 5/32" needle See Rx Instructions .Route Qty: 600 3RF Rx Instructions: use up to 10 x daily for insulin injections lidocaine 5 % adhesive patch,medicated 1 patch topical DAILY Qty: 30 1RF Rx Instructions: leave on most painful area for up to 12 hrs oxycodone 5 mg tablet 5 mg PO Q4H PRN (Reason: pain) Qty: 30 0RF ondansetron HCl 4 mg tablet 4 mg PO Q4H PRN (Reason: nausea and vomiting) Qty: 30 0RF mirtazapine 7.5 mg tablet 7.5 mg PO HS Qty: 30 2RF insulin glargine [Lantus Solostar U-100 Insulin] 100 unit/mL (3 mL) insulin pen 10 unit SQ BID tramadol 50 mg tablet 50 mg PO Q6 PRN (Reason: Pain) Discharge Orders: Discharge Order (Routine); Ordered 10/19/23 Ordered By: Flower Franklin Admission Data Admit Date/Time: 10/17/23 01:11 Attending Provider: Flower Franklin Admit Provider: Susana Elmore Primary Care Provider: Pat Alejandre Other Providers: Susana Elmore; Shane Glass; Ross Adame Coding Level of Care Code 21164 INP/OBS DISCH >30 MIN Diagnoses Shortness of breath R06.02 ESRD (end stage renal disease) N18.6 Type 2 diabetes mellitus E11.9 Breast cancer C50.912 Breast location: unspecified site of breast Estrogen receptor status: unspecified Laterality: left Patient sex: female Right hip pain M25.551 Mobitz type 1 second degree AV block I44.1
== END 2023-10-19 14:17 | disposition home or self-care (01) | DRG 291 ==
LOC: ED 22:26 → 3W 10-17 01:11 → SUATTDRO 10-17 01:11 → 3W 10-17 03:54 → 3N 10-17 04:27 → 2N 10-17 15:06

== ENCOUNTER 2023-11-28 22:54 | Inpatient (IN) ==
--- NOTE | 2023-11-28 23:35 | Emergency Department Note ---
Impression & Plan Intractable pain, Acute hip pain, bilateral, Acute on chronic kidney failure, Elevated troponin, Chest pain ED Provider Note Name: ANGELA CEBALLOS Age: 73 Sex: Female Arrives Via: Walk-In Informant: Patient, daughters ED Provider: Bhupendra Cottrell MD Chief Complaint: Hip pain Impression: As per impressions above Medical Decision Makin-year-old female with multiple complex medical issues arrives for evaluation of severe bilateral hip pain and generalized weakness. She also notes onset of chest pain earlier this evening associated with some shortness of breath which has improved. Hip pain is ongoing for several months actually getting worse after lumbar decompression as she had been walking some more. Diagnosed with severe osteoarthritis as outpatient is actually supposed to have bilateral injections tomorrow. Unfortunately pain is too severe to tolerate at home. She had had Oxy IR and some time thus was given a dose on arrival. This did not help her pain. She is essentially unable to move due to the amount of pain she is having. She received IV Dilaudid x 2 and continues to have discomfort. Patient missed dialysis today due to the amount of pain she is unable to get to dialysis. Renal function is up she has chronic pulmonary edema though she has no hypoxia other than with IV narcotics. Potassium is okay and EKG is reassuring. At this point as she is requiring multiple rounds of IV narcotics she is in severe pain she cannot even get to dialysis due to the amount of pain she is having I do not see any reasonable way of discharging her at this time. I discussed this with the hospitalist who will further evaluate her. I suspect her bilateral hip pain is musculoskeletal in nature she is not having any significant back or abdominal pain there are no other fevers and no evidence of sepsis at this time. As for the chest pain she is having a suspect this is brought on by acute exacerbation of pain. Her troponin is elevated however repeat is actually somewhat improved. EKG does not show any acute STEMI. While she is short of breath this is consistent with a bit of fluid overload but her chest x-ray is essentially stable in regards to pulmonary edema. Given the extensive outpatient workup thus far for her hips we will hold off on getting any imaging of the hips at this time. Triage/Nursing Notes reviewed by Me Differential:Osteoarthritis, intractable pain, septic joint, sciatica, electrolyte imbalance, fractures amongst many other pathologies considered. Vital Signs: reviewed and remarkable for no significant abnormalities Interventions: Oxy IR 5 mg p.o., Dilaudid 0.5 mg IV, Dilaudid 0.25 mg IV Labs:ED labs Reviewed by me and remarkable for multiple lab abnormalities consistent with acute on chronic renal failure in end-stage dialysis patient Imagin view chest x-ray as per my interpretation. Cardiomegaly with some pulmonary edema stable to previous chest x-ray. EKG:As per my interpretation. Indication chest pain. Atrial fibrillation at 87 bpm no ischemia. QTc of 413. When compared to October 17, 2023 EKG no significant changes. Cardiac/Tele Monitoring: Cardiac Monitoring: An Order was placed for continuous cardiac monitoring. The monitor shows a rate of 80 with an afib rhythm. Consults:Dr Devi RICH Hospitalist Plan: Disposition:Hospitalization. Condition: Good History of Present Illness: 73-year-old female arrives for evaluation of shortness of breath. Patient states she has been dealing with severe bilateral hip pain for several months. This has been gradually worsening though due to the fact she got lumbar decompression with vast improvement so she been moving around more. She has been following with orthopedics who note primarily pain is due to severe osteoarthritis. She is actually about to have injections of both hips tomorrow morning. Over the last week or so she has been using Oxy IR with good improvement in pain. This evening though she had been sleeping so had taken a dose and when she woke up severe pain. Has not taken a dose yet this evening since about lunchtime. Notes she was getting increasing shortness of breath today as well. Patient is supposed to have dialysis but missed it today due to the discomfort she has been having in her hips. Due to worsening shortness of breath daughter brought her in for evaluation concern fluid overload. Patient states she continues to make small amounts of urine. She denies any significant chest pain, syncope, palpitations, abdominal pain, back pain, urinary burning or frequency, diarrhea, loss of bowel or bladder control, leg weakness, leg swelling or other concerning signs or symptoms. Past Medical History:See Below Home Medications:See Below Allergies:See Below Vitals:Blood Pressure: 103/60, Pulse 90, RR 20, T 36.4C, O2 97% on RA Physical Exam: GENERAL: Patient is chronically unwell and uncomfortable appearing and in mild distress. RESPIRATORY: No dyspnea. Clear to auscultation and equal bilaterally. CARDIOVASCULAR: Regular rate and rhythm.No murmur appreciated. GASTROINTESTINAL: Abdomen soft, non-tender, no peritonitis. EXTREMITIES: Normal motion all extremities, no cyanosis, no edema. Declines standing or to move into bed and thus somewhat difficult evaluating hips while sitting in wheelchair. Otherwise unremarkable. NEUROLOGIC: Alert and oriented. No focal neurologic deficits appreciated SKIN: No rash, no jaundice, no diaphoresis. PSYCH: Appropriate GCS: 15 ED Course: Times/Reassessments: Persistent pain despite multiple rounds of pain medications. Hospitalist in to evaluate. Patient is comfortable with plan for hospitalization as his family. 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 (09/13/23) Intractable back pain CKD (chronic kidney disease) stage V requiring chronic dialysis Elevated troponin Anemia Iron deficiency anemia (HFpEF) heart failure with preserved ejection fraction Mobitz type 1 second degree AV block Breast cancer diagnosed 2020 Statin myopathy Hyperuricemia Crystal arthropathy Candidal intertrigo Chronic stasis dermatitis Dyslipidemia Seborrheic dermatitis Type 2 diabetes mellitus HTN (hypertension) GERD (gastroesophageal reflux disease) MCKENZIE (nonalcoholic steatohepatitis) Surgical History History of tonsillectomy and adenoidectomy Hx of cholecystectomy History of appendectomy Humerus fracture surgical repair Family History Father Depression Diabetes Mother Hypertension Kidney stones Gallbladder disease Denies family history of Ovarian cancer Prostate cancer Myocardial infarction Breast cancer Colorectal cancer Social History Smoking Status: Never smoker Second Hand Exposure: No; Do You Dip or Chew Tobacco: No; Hx Alcohol Use: No Hx Substance Use: No Preferred Language: Czech Communication Ability: Effective Visual Impairment: Limited Hearing Ability: Normal Phlebotomy Services Representative Required: No Beliefs That Will Affect Care: None marital status: Current Living Situation: Significant Other Current Living Situation Comment: lives at home with and caregiver 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 cephalexin [From Keflex] Allergy Intermediate skin Verified 11/29/23 01:02 starts to peel off sulfamethoxazole Allergy Unknown CAN'T Verified 11/29/23 01:02 [From Bactrim] REMEMBER trimethoprim [From Bactrim] Allergy Unknown CAN'T Verified 11/29/23 01:02 REMEMBER atorvastatin AdvReac Intermediate Myalgia Verified 11/29/23 01:02 Home Meds Home Medications Medication Instructions Recorded Confirmed insulin glargine 100 unit/mL (3 10 unit subcut BID 09/13/23 11/29/23 mL) subcutaneous pen (Lantus Solostar U-100 Insulin) Previous Rx's Medication Instructions Recorded omega-3 fatty acids 1,000 mg 2,000 mg (2 x 1,000 mg) PO BID 07/19/22 capsule #360 caps allopurinol 100 mg tablet 50 mg (1/2 x 100 mg) PO DAILY #45 06/28/23 tabs furosemide 40 mg tablet 40 mg PO BID #180 tabs 06/28/23 insulin aspart U-100 100 unit/mL See Rx Instructions subcut 06/28/23 (3 mL) subcutaneous pen (Novolog DIRECTED #135 mL FlexPen U-100 Insulin aspart) lidocaine 5 % topical patch 1 patch topical DAILY #30 ea 06/28/23 metoprolol succinate 25 mg 25 mg PO DAILY #90 tabs 06/28/23 tablet,extended release 24 hr pen needle, diabetic 32 gauge x #600 ea 06/28/23" (BD Sheila 2nd Gen Pen Needle) venlafaxine 75 mg capsule,extended 75 mg PO DAILY #90 caps 06/28/23 release 24 hr prednisone 10 mg tablet 10 mg PO DAILY #30 tabs 09/06/23 mirtazapine 7.5 mg tablet 7.5 mg PO HS #30 tabs 10/05/23 ondansetron HCl 4 mg tablet 4 mg PO Q4H PRN nausea and 10/05/23 vomiting #30 tabs oxycodone 5 mg tablet 5 mg PO Q4H PRN pain #30 tabs 10/05/23 tramadol 50 mg tablet 50 mg PO Q6H PRN Pain #60 tabs 11/25/23 Results & Data (ED) Vital Signs Vital Signs - 24 hr 11/28/23 22:57 11/29/23 01:31 11/29/23 01:31 Temperature 36.4 C L Temperature Source Temporal Artery Scan Pulse Rate 90 86 100 H Pulse Rate from SpO2 Sensor 90 Respiratory Rate 20 18 Blood Pressure 103/60 Blood Pressure Mean 74 Pulse Oximetry 97 90 Oxygen Delivery Method Room Air Sepsis Recent Fever Within 48 Hours No Sepsis New/Unexplained Change in Mental Status No Sepsis Action Taken by Nursing No Action Required 11/29/23 01:40 11/29/23 01:50 11/29/23 02:00 Temperature Temperature Source Pulse Rate 87 84 82 Pulse Rate from SpO2 Sensor 96 H 92 H 87 Respiratory Rate 15 14 12 Blood Pressure Blood Pressure Mean Pulse Oximetry 94 100 98 Oxygen Delivery Method Sepsis Recent Fever Within 48 Hours Sepsis New/Unexplained Change in Mental Status Sepsis Action Taken by Nursing 11/29/23 02:00 Temperature Temperature Source Pulse Rate 82 Pulse Rate from SpO2 Sensor Respiratory Rate 12 Blood Pressure 119/58 L Blood Pressure Mean 74 Pulse Oximetry 98 Oxygen Delivery Method Sepsis Recent Fever Within 48 Hours Sepsis New/Unexplained Change in Mental Status Sepsis Action Taken by Nursing Laboratory Data 11/28/23 23:49 11/28/23 23:49 Lab Results 11/28/23 11/29/23 Range/Units 23:49 01:36 WBC 8.96 (4.8-10.8) K/ul RBC 2.96 L (4.20-5.40) M/uL Hgb 10.2 L (12.0-16.0) g/dl Hct 32.5 L (37.0-47.0) % MCV 109.8 H (80.0-100.0) fL MCH 34.5 H (25.0-34.0) pg MCHC 31.4 L (32.0-36.0) g/dL RDW Std Deviation 68.1 H (36.4-46.3) fL RDW Coeff of Amparo 17.2 H (11.5-14.5) % Plt Count 196 (130-400) K/uL MPV 10.8 (9.4-12.4) fL Immature Gran % (Auto) 0.4 % Neut % (Auto) 82.3 % Lymph % (Auto) 9.8 % [place] % (Auto) 6.3 % Eos % (Auto) 0.8 % Baso % (Auto) 0.4 % Neut # (Auto) 7.37 H (1.40-6.50) K/uL Lymph # (Auto) 0.88 L (1.20-3.40) K/uL [place] # (Auto) 0.56 (0.11-0.59) K/uL Eos # (Auto) 0.07 (0.00-0.50) K/uL Baso # (Auto) 0.04 (0.00-0.20) K/uL Immature Gran # (Auto) 0.04 (0.01-0.20) K/uL Absolute Nucleated RBC 0.02 (0.00-0.12) K/uL Nucleated RBC % (auto) 0.2 % Sodium 132 L (136-145) mmol/L Potassium 4.5 (3.5-5.1) mmol/L Chloride 92 L (98-107) mmol/L Carbon Dioxide 21 (21-32) mmol/L Anion Gap 19 H (3-11) BUN 66 H (6-23) mg/dl Creatinine 5.11 H* (0.6-1.2) mg/dl Est Cr Clr Drug Dosing Not Reportable Est GFR ( Amer) 8.9 ml/min Est GFR (Non-Af Amer) 7.7 ml/min BUN/Creatinine Ratio 12.9 (10-20) Glucose 179 H (70-99(Fasting)) mg/dl Calcium 9.9 (8.6-10.3) mg/dl Magnesium 2.6 H (1.7-2.4) mg/dl Troponin I High Sens 198.7 H* 178.5 H* (0-14) pg/ml Administered Medications Discontinued Medications Hydromorphone HCl (Hydromorphone Inj 0.5 Mg/0.5 Ml Syr) 0.5 mg IV NOW STA Stop: 11/29/23 00:54 Last Admin: 11/29/23 00:56 Dose: 0.5 mg Documented By: LILIAM Hydromorphone HCl (Hydromorphone Inj 0.5 Mg/0.5 Ml Syr) 0.25 mg IV NOW STA Stop: 11/29/23 01:32 Last Admin: 11/29/23 01:42 Dose: 0.25 mg Documented By: LILIAM Oxycodone HCl (Oxycodone Hcl Ir 5 Mg Tab (Immediate Release)) 5 mg PO NOW STA Stop: 11/28/23 23:31 Last Admin: 11/28/23 23:42 Dose: 5 mg Documented By: LILIAM Discharge Plan Visit Data Chief Complaint: Hip Pain Stated Complaint: HIP PAIN ED Provider: Bhupendra Cottrell Discharge Problem: Intractable pain, Acute hip pain, bilateral, Acute on chronic kidney failure, Elevated troponin, Chest pain Discharge Problem: Acute on chronic kidney failure Qualifiers: Acute renal failure type: unspecified Chronic kidney disease stage: stage 5, not on chronic dialysis Qualified Code(s): N17.9 - Acute kidney failure, unspecified; N18.5 - Chronic kidney disease, stage 5 Chest pain Qualifiers: Chest pain type: unspecified Qualified Code(s): R07.9 - Chest pain, unspecified
[2023-11-28] MEDS: oxyCODONE HCL IR 5 MG TAB (IMMEDIATE RELEASE) PO STA (23:42)
[2023-11-29 00:18] LABS: Basophils # (auto) 0.04 K/uL (0.00-0.20); Basophils % (auto) 0.4 %; Eosinophils # (auto) 0.07 K/uL (0.00-0.50); Eosinophils % (auto) 0.8 %; Hematocrit (blood only) 32.5 % (37.0-47.0); Hemoglobin 10.2 g/dl (12.0-16.0); Immature Granulocytes # (auto) 0.04 K/uL (0.01-0.20); Immature Granulocytes % (auto) 0.4 %; Lymphocytes # (auto) 0.88 K/uL (1.20-3.40); Lymphocytes % (auto) 9.8 %; Mean Corpuscular Hemoglobin 34.5 pg (25.0-34.0); Mean Corpuscular Hgb Conc 31.4 g/dL (32.0-36.0); Mean Corpuscular Volume 109.8 fL (80.0-100.0); Mean Platelet Volume 10.8 fL (9.4-12.4); Monocytes # (auto) 0.56 K/uL (0.11-0.59); Monocytes % (auto) 6.3 %; Neutrophils # (auto) 7.37 K/uL (1.40-6.50); Neutrophils % (auto) 82.3 %; Nucleated RBC # (auto) 0.02 K/uL (0.00-0.12); Nucleated RBC % (auto) 0.2 %; Platelet Count 196 K/uL (130-400); RDW Coefficient of Variation 17.2 % (11.5-14.5); RDW Standard Deviation 68.1 fL (36.4-46.3); Red Blood Count 2.96 M/uL (4.20-5.40); White Blood Count 8.96 K/ul (4.8-10.8)
[2023-11-29 00:44] LABS: Anion Gap 19 (3-11); BUN Creatinine Ratio 12.9 (10-20); Blood Urea Nitrogen 66 mg/dl (6-23); Calcium 9.9 mg/dl (8.6-10.3); Carbon Dioxide 21 mmol/L (21-32); Chloride 92 mmol/L (98-107); Est GFR (African American) 8.9 ml/min; Est GFR (Non-African American) 7.7 ml/min; Glucose 179 mg/dl (70-99(Fasting)); Magnesium 2.6 mg/dl (1.7-2.4); Potassium 4.5 mmol/L (3.5-5.1); Sodium 132 mmol/L (136-145); Troponin I High Sensitivity 198.7 pg/ml (0-14)
[2023-11-29] MEDS: HYDROmorphone INJ 0.5 MG/0.5 ML SYR IV STA ×2 (00:56→01:42)
--- NOTE | 2023-11-29 02:09 | History & Physical Report ---
Date of Service November 29, 2023 Assessment & Plan (1) ESRD needing dialysis: (2) Atrial fibrillation: (3) MCKENZIE (nonalcoholic steatohepatitis): (4) GERD (gastroesophageal reflux disease): (5) HTN (hypertension): (6) Type 2 diabetes mellitus: (7) (HFpEF) heart failure with preserved ejection fraction: (8) CKD (chronic kidney disease) stage V requiring chronic dialysis: (9) Acute hip pain, bilateral: (10) Elevated troponin: Plan CKD stage V/ESRD on dialysis Tuesday and Tuesday, having missed Monday 11/27- Patient reports that she still is able to urinate, and is primarily on dialysis for toxins Consult nephrology Acute bilateral hip pain- Patient reportedly had appointment at [facility] tomorrow to get hip injections Acetaminophen 650 mg by mouth every 6 hours as needed for mild pain or fever Oxycodone 5 mg by mouth every 4 hours as needed for moderate pain Dilaudid 0.25 mg IV every 3 hours as needed for severe pain Patient did receive Dilaudid 0.5 then 0.25 mg IV from the ED, and did develop some mild hypoxia requiring oxygen Will consult [facility] Elevated troponin/hypertension/CHF- The patient will be admitted to telemetry for serial cardiac enzymes, serial EKG's, cardiac rhythm monitoring Troponin initially 198.7, with follow-up 178.5, will repeat in the a.m. Most likely associated with ESRD Continue furosemide 40 mg p.o. twice daily, metoprolol succinate extended release 25 mg daily Diabetes mellitus- Continue glargine 10 units subcu twice daily Placed on Accu-Cheks with NovoLog SSI History of Present Illness Chief Complaint: The patient presents to the emergency department with complaint of severe bilateral hip pain, generalized lower extremity weakness and decreased ability to ambulate. She also has had intermittent shortness of breath and chest discomfort since missing dialysis earlier in the day Primary Care Provider: Pat Alejandre MD The patient is a 73-year-old female with a past medical history including ESRD on HD, bilateral hip pain, atrial fibrillation, CHF, MCKENZIE, GERD, hypertension, diabetes mellitus type 2, dyslipidemia, statin myopathy, CKD stage V on dialysis Tuesday and Tuesday, but still produces urine. She has had persistent bilateral hip pain over the past several months, but worsening over the past few weeks. She was to have a bilateral hip injection at [facility] on 11/28, however, her pain was so severe and her shortness of breath occurred due to inability to get to dialysis today, that she came to the emergency department for assessment this evening. Allergies Allergy/AdvReac Type Severity Reaction Status Date / Time amoxicillin Allergy Severe LIPS Verified 11/29/23 01:02 SWELLED, "RED ALL OVER" doxycycline Allergy Severe LIPS Verified 11/29/23 01:02 SWELLED, "RED ALL OVER". cephalexin [From Keflex] Allergy Intermediate skin Verified 11/29/23 01:02 starts to peel off sulfamethoxazole Allergy Unknown CAN'T Verified 11/29/23 01:02 [From Bactrim] REMEMBER trimethoprim [From Bactrim] Allergy Unknown CAN'T Verified 11/29/23 01:02 REMEMBER atorvastatin AdvReac Intermediate Myalgia Verified 11/29/23 01:02 Home Medications Medication Instructions Recorded Confirmed Type omega-3 fatty acids 1,000 mg 2,000 mg (2 x 1,000 mg) PO BID 07/19/22 11/29/23 Rx capsule #360 caps allopurinol 100 mg tablet 50 mg (1/2 x 100 mg) PO DAILY #45 06/28/23 11/29/23 Rx tabs furosemide 40 mg tablet 40 mg PO BID #180 tabs 06/28/23 11/29/23 Rx insulin aspart U-100 100 unit/mL See Rx Instructions subcut 06/28/23 11/29/23 Rx (3 mL) subcutaneous pen (Novolog DIRECTED #135 mL FlexPen U-100 Insulin aspart) lidocaine 5 % topical patch 1 patch topical DAILY #30 ea 06/28/23 11/29/23 Rx metoprolol succinate 25 mg 25 mg PO DAILY #90 tabs 06/28/23 11/29/23 Rx tablet,extended release 24 hr pen needle, diabetic 32 gauge x #600 ea 06/28/23 10/16/23 Rx " (BD Sheila 2nd Gen Pen Needle) venlafaxine 75 mg capsule,extended 75 mg PO DAILY #90 caps 06/28/23 11/29/23 Rx release 24 hr prednisone 10 mg tablet 10 mg PO DAILY #30 tabs 09/06/23 11/29/23 Rx insulin glargine 100 unit/mL (3 10 unit subcut BID 09/13/23 11/29/23 History mL) subcutaneous pen (Lantus Solostar U-100 Insulin) mirtazapine 7.5 mg tablet 7.5 mg PO HS #30 tabs 10/05/23 11/29/23 Rx ondansetron HCl 4 mg tablet 4 mg PO Q4H PRN nausea and 10/05/23 11/29/23 Rx vomiting #30 tabs oxycodone 5 mg tablet 5 mg PO Q4H PRN pain #30 tabs 10/05/23 11/29/23 Rx tramadol 50 mg tablet 50 mg PO Q6H PRN Pain #60 tabs 11/25/23 11/29/23 Rx Past Med/Surg History Medical History (Updated 11/29/23 @ 03:48 by Maco Quinonez MD) 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 (09/13/23) Intractable back pain CKD (chronic kidney disease) stage V requiring chronic dialysis Elevated troponin Anemia Iron deficiency anemia (HFpEF) heart failure with preserved ejection fraction Mobitz type 1 second degree AV block Breast cancer diagnosed 2020 Statin myopathy Hyperuricemia Crystal arthropathy Candidal intertrigo Chronic stasis dermatitis Dyslipidemia Seborrheic dermatitis Type 2 diabetes mellitus HTN (hypertension) GERD (gastroesophageal reflux disease) MCKENZIE (nonalcoholic steatohepatitis) Surgical History History of tonsillectomy and adenoidectomy Hx of cholecystectomy History of appendectomy Humerus fracture surgical repair Family History Father Depression Diabetes Mother Hypertension Kidney stones Gallbladder disease Denies family history of Ovarian cancer Prostate cancer Myocardial infarction Breast cancer Colorectal cancer Social History Smoking Status: Never smoker Second Hand Exposure: No; Do You Dip or Chew Tobacco: No; Hx Alcohol Use: No Hx Substance Use: No Preferred Language: Swedish Communication Ability: Effective Visual Impairment: Limited Hearing Ability: Normal Teacher Of Family And Consumer Science Required: No Beliefs That Will Affect Care: None marital status: Current Living Situation: Significant Other Current Living Situation Comment: lives at home with and caregiver 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 Feels Safe at Home: Yes Childhood Exposure to Second-Hand Smoke: No Diet: regular Dental Care, Regularly: Yes Physical Activity Frequency: Does not Exercise Seatbelt Use: never Sunscreen Use: No Assistive Devices: Bedside Commode, Cane, Scooter/Electric Scooter and Walker Review of Systems Review of Systems: The patient denies palpitations, cough, lower extremity swelling, sore throat, fevers, chills, sweats, nausea, vomiting, diarrhea , constipation, abdominal pain, pelvic pain, blood in urine or stool, dysuria, urinary frequency or urgency, lightheadedness, dizziness, headache, memory loss, loss of consciousness, rash, abnormal bruising or bleeding, focal or generalized weakness, numbness or tingling in arms, generalized arthralgias or myalgias, back or neck pain, or night sweats. The review of systems is otherwise negative other than for that already noted above, and at least 10 systems have been reviewed. Physical Exam Physical Exam: The patient is awake, alert and oriented 3, obese, normocephalic and atraumatic, lying in bed and in no acute distress. HEENT--PERRL, EOMI, mucous membranes and oropharynx normal Neck--supple. No JVD. No bruits. Thyroid normal, trachea midline, no adenopathy. Heart--normal S1 and S2. No murmurs, rubs or gallops. Lungs--clear bilaterally, no respiratory distress, no accessory muscle use. Abdomen--normal bowel sounds and soft. Nontender. Nondistended, no hernias or masses, no organomegaly. Extremities--No edema. Dermatologic--normal skin turgor, normal color, no abnormal lymph nodes, no rash. Neurologic--cranial nerves II through XII grossly intact. Rheumatologic--normal range of motion. Psychiatric--normal affect. Results & Data Results & Data Vital Signs (Past 12 Hours) Vital Signs Temp Pulse Resp BP Pulse Ox O2 Del Method 11/29/23 01:31 86 11/28/23 22:57 36.4 C L 90 20 103/60 97 Room Air Laboratory Results Laboratory Results WBC 8.96 K/ul (4.8-10.8) 11/28/23 23:49 RBC 2.96 M/uL (4.20-5.40) L 11/28/23 23:49 Hgb 10.2 g/dl (12.0-16.0) L 11/28/23 23:49 Hct 32.5 % (37.0-47.0) L 11/28/23 23:49 MCV 109.8 fL (80.0-100.0) H 11/28/23 23:49 MCH 34.5 pg (25.0-34.0) H 11/28/23 23:49 MCHC 31.4 g/dL (32.0-36.0) L 11/28/23 23:49 RDW Std Deviation 68.1 fL (36.4-46.3) H 11/28/23 23:49 RDW Coeff of Amparo 17.2 % (11.5-14.5) H 11/28/23 23:49 Plt Count 196 K/uL (130-400) 11/28/23 23:49 MPV 10.8 fL (9.4-12.4) 11/28/23 23:49 Immature Gran % (Auto) 0.4 % 11/28/23 23:49 Neut % (Auto) 82.3 % 11/28/23 23:49 Lymph % (Auto) 9.8 % 11/28/23 23:49 [place] % (Auto) 6.3 % 11/28/23 23:49 Eos % (Auto) 0.8 % 11/28/23 23:49 Baso % (Auto) 0.4 % 11/28/23 23:49 Neut # (Auto) 7.37 K/uL (1.40-6.50) H 11/28/23 23:49 Lymph # (Auto) 0.88 K/uL (1.20-3.40) L 11/28/23 23:49 [place] # (Auto) 0.56 K/uL (0.11-0.59) 11/28/23 23:49 Eos # (Auto) 0.07 K/uL (0.00-0.50) 11/28/23 23:49 Baso # (Auto) 0.04 K/uL (0.00-0.20) 11/28/23 23:49 Immature Gran # (Auto) 0.04 K/uL (0.01-0.20) 11/28/23 23:49 Absolute Nucleated RBC 0.02 K/uL (0.00-0.12) 11/28/23 23:49 Nucleated RBC % (auto) 0.2 % 11/28/23 23:49 Sodium 132 mmol/L (136-145) L 11/28/23 23:49 Potassium 4.5 mmol/L (3.5-5.1) 11/28/23 23:49 Chloride 92 mmol/L (98-107) L 11/28/23 23:49 Carbon Dioxide 21 mmol/L (21-32) 11/28/23 23:49 Anion Gap 19 (3-11) H 11/28/23 23:49 BUN 66 mg/dl (6-23) H 11/28/23 23:49 Creatinine 5.11 mg/dl (0.6-1.2) H* 11/28/23 23:49 Est Cr Clr Drug Dosing Not Reportable 11/28/23 23:49 Est GFR ( Amer) 8.9 ml/min 11/28/23 23:49 Est GFR (Non-Af Amer) 7.7 ml/min 11/28/23 23:49 BUN/Creatinine Ratio 12.9 (10-20) 11/28/23 23:49 Glucose 179 mg/dl (70-99(Fasting)) H 11/28/23 23:49 Calcium 9.9 mg/dl (8.6-10.3) 11/28/23 23:49 Magnesium 2.6 mg/dl (1.7-2.4) H 11/28/23 23:49 Troponin I High Sens 178.5 pg/ml (0-14) H* 11/29/23 01:36 Code Status & VTE Plan Code Status Full code VTE Prophylaxis Plan VTE Prophylaxis will be ordered: Yes PG Care Time/CCT Total # of Minutes Spent Total Time Spent with Patient: Total time spent is greater than 50% in coordination of care (as documented) at patient's floor/unit and/or counseling patient: Coding Level of Care Code 62124 INT INP/OBS CARE 3/75MIN Diagnoses ESRD needing dialysis N18.6; Z99.2 Atrial fibrillation I48.91 MCKENZIE (nonalcoholic steatohepatitis) K75.81 GERD (gastroesophageal reflux disease) K21.9 HTN (hypertension) I10 Type 2 diabetes mellitus E11.9 (HFpEF) heart failure with preserved ejection fraction I50.30 CKD (chronic kidney disease) stage V requiring chronic dialysis N18.6; Z99.2 Acute hip pain, bilateral M25.551; M25.552 Elevated troponin R79.89
[2023-11-29] MEDS ORDERED: DEXTROSE 50% 50 ML SYRINGE IV PRN (02:55)
[2023-11-29] MEDS ORDERED: ACETAMINOPHEN 325 MG TAB PO PRN (02:55)
[2023-11-29] MEDS ORDERED: GLUCOSE 10 TAB/TUBE PO PRN (02:55)
[2023-11-29] MEDS ORDERED: ONDANSETRON INJ 2 MG/ML 2 ML VIAL IV PRN (02:55)
[2023-11-29] MEDS ORDERED: GLUCOSE 40% GEL 15 GM TUBE PO PRN (02:55)
[2023-11-29] MEDS ORDERED: CARBOHYDRATES FOR HYPOGLYCEMIA PO PRN (02:55)
[2023-11-29] MEDS ORDERED: GLUCAGON FOR INJ 1 MG VIAL SQ PRN (02:55)
[2023-11-29] MEDS ORDERED: ONDANSETRON 4 MG OD TAB PO PRN (03:10)
--- NOTE | 2023-11-29 07:09 | XRay Report ---
XR chest 1V portable CLINICAL HISTORY: shortness of breath TECHNIQUE: Single frontal radiograph of the chest was obtained. Comparison: Comparison is made to chest radiograph 10/16/2023 FINDINGS: Right shoulder orthopedic hardware is seen. Dual-lumen venous catheter is unchanged. Cardiomegaly is noted. The aortic arch is calcified. The silhouette is partially obscured. There is prominence and ce phalization of the vasculature with Natalie B lines seen. Small bilateral pleural effusions are seen. IMPRESSION: Cardiomegaly and moderate pulmonary edema. Small bilateral pleural effusions. These findings are whitney lar in extent to exam of September. ACT 112: Negative or not required by law. Electronically signed by: Zack Otoole M.D. 11/29/2023 7:08 AM
[2023-11-29 07:24] LABS: Estimated Average Glucose 134 mg/dl; Hemoglobin A1C 6.3 % (4.5-5.6)
--- NOTE | 2023-11-29 07:56 | Hospitalist Progress Note ---
Date of Service November 29, 2023 Assessment & Plan (1) Acute hip pain, bilateral: Plan: Acute bilateral hip pain-acute on chronic, pending x ray, consult [facility] has outpt appt with them Acetaminophen 1000m tid scheduled Oxycodone 5 mg by mouth every 4 hours as needed for moderate pain Dilaudid 0.25 mg IV every 3 hours as needed for severe pain (2) ESRD needing dialysis: Plan: Pt missed dialysis due to hip pain typically dialysis Tuesday and Tuesday, having missed Tuesday 3/4- Patient reports that she still is able to urinate Consult nephrology (3) Atrial fibrillation: Plan: Chronc and stable Typically rate controlled with metoprolol Elevated Troponin initially 198.7, with follow-up 178.5, Demand ischemia and associated renal disease impacting elevation do not suspect ACS HFimpEF chronic, Continue furosemide 40 mg p.o. twice daily, metoprolol succinate extended release 25 mg daily (4) Type 2 diabetes mellitus: Plan: basal bolus insulin and follow poc bsg (5) MCKENZIE (nonalcoholic steatohepatitis): Plan: chronic and stable (6) Hyponatremia: Plan: sodium is 131 hopeful to correct with dialysis Plan Heparin for DVT prevention full code Admission and Anticipated Discharge Date Admission Date: November 29, 2023 Subjective pt is sedate from pain mediations, needed to push injections one day due to pain control and wanting to review x rays Physical Exam Physical Exam: cardiac exam is regular lungs are diminshed Results & Data Results & Data Vital Signs (Past 12 Hours) Vital Signs Temp Pulse Resp BP Pulse Ox O2 Del Method O2 Flow Rate 11/29/23 07:44 74 11/29/23 06:00 82 16 99 11/29/23 06:00 82 16 123/75 99 11/29/23 05:50 82 20 99 11/29/23 05:40 84 19 99 11/29/23 05:30 84 20 99 11/29/23 05:20 76 14 99 11/29/23 05:10 77 23 99 11/29/23 05:00 79 19 99 11/29/23 05:00 79 19 123/73 99 Nasal Cannula 2 11/29/23 04:50 82 16 99 11/29/23 04:40 76 21 99 11/29/23 04:35 Nasal Cannula 2 11/29/23 04:30 78 18 99 11/29/23 04:20 74 20 100 11/29/23 04:10 75 20 100 11/29/23 04:01 79 19 100 11/29/23 04:01 79 19 107/72 100 11/29/23 04:00 79 15 100 11/29/23 03:50 89 21 100 11/29/23 03:40 93 H 23 100 11/29/23 03:30 74 16 100 11/29/23 03:20 84 16 100 11/29/23 03:10 85 17 100 11/29/23 03:00 77 20 99 11/29/23 03:00 77 20 105/52 L 99 Nasal Cannula 2 11/29/23 02:50 76 22 100 11/29/23 02:40 74 20 100 11/29/23 02:30 70 19 100 11/29/23 02:20 73 20 100 11/29/23 02:10 75 18 100 11/29/23 02:00 82 12 119/58 L 98 11/29/23 02:00 82 12 98 11/29/23 01:50 84 14 100 11/29/23 01:40 87 15 94 11/29/23 01:31 100 H 18 90 11/29/23 01:31 86 11/28/23 22:57 97.5 F L 90 20 103/60 97 Room Air PG Care Time/CCT Total # of Minutes Spent Total Time Spent with Patient: Total time spent is greater than 50% in coordination of care (as documented) at patient's floor/unit and/or counseling patient: Coding Level of Care Code None Diagnoses Acute hip pain, bilateral M25.551; M25.552 ESRD needing dialysis N18.6; Z99.2 Atrial fibrillation I48.91 Type 2 diabetes mellitus E11.9 MCKENZIE (nonalcoholic steatohepatitis) K75.81 Hyponatremia E87.1
--- NOTE | 2023-11-29 08:39 | Electrocardiogram Report ---
Test Reason : Blood Pressure : / mmHG Vent. Rate : 087 BPM Atrial Rate : 000 BPM P-R Int : 000 ms QRS Dur : 114 ms QT Int : 344 ms P-R-T Axes : 000 119 215 degrees QTc Int : 413 ms Sinus rhythm with 2nd degree A-V block (Mobitz I) Low voltage QRS Non-specific intra-ventricular conduction delay Diffuse Nonspecific ST and T wave abnormality Abnormal ECG When compared with ECG of 17-OCT-2023 10:14, No significant change Confirmed by Triston Jones ([id number]) on 11/29/2023 8:39:04 AM Referred By: REFERRED SELF Confirmed By:Triston Jones
[2023-11-29] MEDS: ACETAMINOPHEN 500 MG TAB PO SCH (09:17)
[2023-11-29] MEDS: allopurinoL 100 MG TAB PO SCH (09:18)
[2023-11-29] MEDS: VENLAFAXINE HCL XR 75 MG CAPXR PO SCH (09:18)
[2023-11-29] MEDS: METOPROLOL SUCC 25MG EXT REL TAB PO SCH (09:18)
[2023-11-29] MEDS: predniSONE 10 MG TABLET PO SCH (09:19)
[2023-11-29] MEDS: FUROSEMIDE 40 MG TAB PO SCH (09:19)
[2023-11-29] MEDS: OMEGA-3 (PURIFIED FISH OIL) 1 GM CAP PO SCH (09:19)
[2023-11-29] MEDS: LANTUS PER UNIT CHARGE SQ SCH (09:21)
[2023-11-29] MEDS: HYDROmorphone INJ 0.5 MG/0.5 ML SYR IV PRN (09:28)
[2023-11-29] MEDS: HEPARIN SOD 5,000 UNIT/0.5 ML VIAL SQ SCH (09:29)
[2023-11-29] MEDS: INSULIN ASPART PER UNIT CHARGE SC SCH (09:30)
--- NOTE | 2023-11-29 09:35 | Nephrology Consultation ---
Date of Consultation November 29, 2023 Assessment & Plan (1) ESRD (end stage renal disease): Outpatient HD Rx: M&F [facility] 2.5hr, 2K 2Ca, F-180NR, EDW 90 kg. Missed treatment yesterday. Orders for HD today were entered into the EHR and reviewed with machine marker. Extended treatment time requested for clearance and to assist with UF. Continue furosemide as Rx to encourage urine output. HD was coordinated this AM. Orders entered into the EHR and reviewed with the machine marker. Renal diet and 1.2 daily fluid restriction. (2) Anemia: Outpatient Rx Venofer 100 mg IVP with HD and Micera 30 IVP q 2 weeks with HD. TUNDE held with Hgb >11. (3) Right hip pain: Orthopedics consultation pending. In the interim, pain controlled following hydromorphone. PRN oxycodone ordered. (4) Breast cancer: History of Present Illness Reason for Consultation: ESRD on HD Requesting Physician: Cliff Fishman MD Attending Physician: Cliff Fishman MD History of Present Illness Pauline Beyer is a 73 year-old female with CKD Vd. She is maintained on twice weekly hemodialysis (MF) at [facility] under my care. Pauline dialyzes with a [facility]. She completed dialysis on Tuesday (11/24) without complications. Last week, she completed full treatment on 11/21, 11/23, and 11/24. An extra treatment was added last week for volume overload. Pauline left HD on Tuesday at her EDW of 90 kg. Clearance has been at goal. Unfortunately, she missed her scheduled dialysis treatment yesterday due to hip pain. She presented to the ER yesterday with severe hip pain and shortness of breath. She was admitted to [facility] with volume overload requiring additional UF from 10/17- 10/19. Pauline progressed to ESKD and required initiation of HD in November 2022 following multiple hospitalizations complicated by JEFFREY. She has remained non-oliguric. Rx 2.5hr, 400/800, 2K 2Ca, F-180NR. EDW has recently been adjusted to account for progressive weight loss. In August, her dry weight was 99 kg. She is now down to 90 kg. Her medical history is significant for breast cancer with metastasis to bone including the lumbar spine, recurrent hypercalcemia, HFpEF, Mobitz type I second-degree AV block, dyslipidemia, AODM, HTN, GERD, and MCKENZIE. She recently presented to [facility] with back pain. LS spine CT revealed fracture of L1 vertebral body with radiolucency concerning for lytic disease/pathologic fracture. 4mm retropulsion was reported. Dr. Adame performed Kyphoplasty. Pauline has continued to struggle with hip pain. She is [place] [facility] [place]. Oxycodone has been required for pain control at home. Pauline told me this morning that right hip pain is her primary concern. She reports some degree of chronic stable orthopnea. Pauline reported that yesterday she experienced some increased work of breathing during the day and was visibly uncomfortable prompting her to come to the ER. She denies any chest pain or palpitations. She has not experienced fevers or chills. She does not have a cough. CXR in the ER demonstrating evidence of pulmonary edema. O2 sats ~88-90% on room air. 100% on 2 L NC. EKG without acute changes. Hemodialysis will be coordinated this morning. I discussed the patient's recent history with staff at [facility]. Allergies Allergy/AdvReac Type Severity Reaction Status Date / Time amoxicillin Allergy Severe LIPS Verified 11/29/23 01:02 SWELLED, "RED ALL OVER" doxycycline Allergy Severe LIPS Verified 11/29/23 01:02 SWELLED, "RED ALL OVER". cephalexin [From Keflex] Allergy Intermediate skin Verified 11/29/23 01:02 starts to peel off sulfamethoxazole Allergy Unknown CAN'T Verified 11/29/23 01:02 [From Bactrim] REMEMBER trimethoprim [From Bactrim] Allergy Unknown CAN'T Verified 11/29/23 01:02 REMEMBER atorvastatin AdvReac Intermediate Myalgia Verified 11/29/23 01:02 Home Medications Medication Instructions Recorded Confirmed Type omega-3 fatty acids 1,000 mg 2,000 mg (2 x 1,000 mg) PO BID 07/19/22 11/29/23 Rx capsule #360 caps allopurinol 100 mg tablet 50 mg (1/2 x 100 mg) PO DAILY #45 06/28/23 11/29/23 Rx tabs furosemide 40 mg tablet 40 mg PO BID #180 tabs 06/28/23 11/29/23 Rx insulin aspart U-100 100 unit/mL See Rx Instructions subcut 06/28/23 11/29/23 Rx (3 mL) subcutaneous pen (Novolog DIRECTED #135 mL FlexPen U-100 Insulin aspart) lidocaine 5 % topical patch 1 patch topical DAILY #30 ea 06/28/23 11/29/23 Rx metoprolol succinate 25 mg 25 mg PO DAILY #90 tabs 06/28/23 11/29/23 Rx tablet,extended release 24 hr pen needle, diabetic 32 gauge x #600 ea 06/28/23 10/16/23 Rx 532" (BD Sheila 2nd Gen Pen Needle) venlafaxine 75 mg capsule,extended 75 mg PO DAILY #90 caps 06/28/23 11/29/23 Rx release 24 hr prednisone 10 mg tablet 10 mg PO DAILY #30 tabs 09/06/23 11/29/23 Rx insulin glargine 100 unit/mL (3 10 unit subcut BID 09/13/23 11/29/23 History mL) subcutaneous pen (Lantus Solostar U-100 Insulin) mirtazapine 7.5 mg tablet 7.5 mg PO HS #30 tabs 10/05/23 11/29/23 Rx ondansetron HCl 4 mg tablet 4 mg PO Q4H PRN nausea and 10/05/23 11/29/23 Rx vomiting #30 tabs oxycodone 5 mg tablet 5 mg PO Q4H PRN pain #30 tabs 10/05/23 11/29/23 Rx tramadol 50 mg tablet 50 mg PO Q6H PRN Pain #60 tabs 11/25/23 11/29/23 Rx Patient History Medical History (Updated 11/29/23 @ 03:48 by Maco Quinonez MD) 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 (09/13/23) Intractable back pain CKD (chronic kidney disease) stage V requiring chronic dialysis Elevated troponin Anemia Iron deficiency anemia (HFpEF) heart failure with preserved ejection fraction Mobitz type 1 second degree AV block Breast cancer diagnosed 2020 Statin myopathy Hyperuricemia Crystal arthropathy Candidal intertrigo Chronic stasis dermatitis Dyslipidemia Seborrheic dermatitis Type 2 diabetes mellitus HTN (hypertension) GERD (gastroesophageal reflux disease) MCKENZIE (nonalcoholic steatohepatitis) Surgical History History of tonsillectomy and adenoidectomy Hx of cholecystectomy History of appendectomy Humerus fracture surgical repair Family History Father Depression Diabetes Mother Hypertension Kidney stones Gallbladder disease Denies family history of Ovarian cancer Prostate cancer Myocardial infarction Breast cancer Colorectal cancer Social History Smoking Status: Never smoker Second Hand Exposure: No; Do You Dip or Chew Tobacco: No; Hx Alcohol Use: No Hx Substance Use: No Preferred Language: Palestinian Communication Ability: Effective Visual Impairment: Limited Hearing Ability: Normal Client Relations Specialist Required: No Beliefs That Will Affect Care: None marital status: Current Living Situation: Significant Other Current Living Situation Comment: lives at home with and caregiver 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 Feels Safe at Home: Yes Childhood Exposure to Second-Hand Smoke: No Diet: regular Dental Care, Regularly: Yes Physical Activity Frequency: Does not Exercise Seatbelt Use: never Sunscreen Use: No Assistive Devices: Bedside Commode, Cane, Scooter/Electric Scooter and Walker Review of Systems Review of Systems: All systems reviewed & are unremarkable except as noted in HPI & below Respiratory: + dyspnea; no cough Cardiovascular: no palpitations and no edema Musculoskeletal: + back pain, + joint pain and + stiffnes s; no radicular pain Physical Exam Constitutional: well developed; no acute distress Eyes: no scleral abnormality and no corneal abnormality ENMT: Mouth: oral mucous membranes not dry Neck: normal visual inspection and trachea midline Respiratory: normal respiratory effort Auscultation: lungs clear to auscultation bilaterally Cardiovascular: Rate/Rhythm: regular rate and regular rhythm Heart Sounds: normal S1 and normal S2 Extremities: + edema Musculoskeletal: Extremities: no cyanosis and no clubbing Skin: normal turgor; no lesions Neurologic: Motor/Sensory: no tremor and no asterixis Psychiatric: Orientation: alert and oriented x 3 Results & Data Vital Signs (Past 12 Hours) Vital Signs Temp Pulse Pulse Resp BP BP Pulse Ox 11/29/23 09:00 86 17 134/74 100 11/29/23 07:44 74 11/29/23 06:00 82 16 99 03/05/24 06:00 82 16 123/75 99 11/29/23 05:50 82 20 99 11/29/23 05:40 84 19 99 11/29/23 05:30 84 20 99 11/29/23 05:20 76 14 99 11/29/23 05:10 77 23 99 11/29/23 05:00 79 19 99 11/29/23 05:00 79 19 123/73 99 11/29/23 04:50 82 16 99 11/29/23 04:40 76 21 99 11/29/23 04:35 11/29/23 04:30 78 18 99 11/29/23 04:20 74 20 100 11/29/23 04:10 75 20 100 11/29/23 04:01 79 19 100 11/29/23 04:01 79 19 107/72 100 11/29/23 04:00 79 15 100 11/29/23 03:50 89 21 100 11/29/23 03:40 93 H 23 100 11/29/23 03:30 74 16 100 11/29/23 03:20 84 16 100 11/29/23 03:10 85 17 100 11/29/23 03:00 77 20 99 11/29/23 03:00 77 20 105/52 L 99 11/29/23 02:50 76 22 100 11/29/23 02:40 74 20 100 11/29/23 02:30 70 19 100 11/29/23 02:20 73 20 100 11/29/23 02:10 75 18 100 11/29/23 02:00 82 12 119/58 L 98 11/29/23 02:00 82 12 98 11/29/23 01:50 84 14 100 11/29/23 01:40 87 15 94 11/29/23 01:31 100 H 18 90 11/29/23 01:31 86 11/28/23 22:57 36.4 C L 90 20 103/60 97 O2 Del Method O2 Flow Rate 11/29/23 09:00 Nasal Cannula 2 11/29/23 07:44 11/29/23 06:00 11/29/23 06:00 11/29/23 05:50 11/29/23 05:40 11/29/23 05:30 11/29/23 05:20 11/29/23 05:10 11/29/23 05:00 11/29/23 05:00 Nasal Cannula 2 11/29/23 04:50 11/29/23 04:40 11/29/23 04:35 Nasal Cannula 2 11/29/23 04:30 11/29/23 04:20 11/29/23 04:10 11/29/23 04:01 11/29/23 04:01 11/29/23 04:00 11/29/23 03:50 11/29/23 03:40 11/29/23 03:30 11/29/23 03:20 11/29/23 03:10 11/29/23 03:00 11/29/23 03:00 Nasal Cannula 2 11/29/23 02:50 11/29/23 02:40 11/29/23 02:30 11/29/23 02:20 11/29/23 02:10 11/29/23 02:00 11/29/23 02:00 11/29/23 01:50 11/29/23 01:40 11/29/23 01:31 11/29/23 01:31 11/28/23 22:57 Room Air Laboratory Results Laboratory Results - last 24 hr 11/28/23 11/29/23 11/29/23 23:49 01:36 07:24 WBC 8.96 RBC 2.96 L Hgb 10.2 L Hct 32.5 L MCV 109.8 H MCH 34.5 H MCHC 31.4 L RDW Std Deviation 68.1 H RDW Coeff of Amparo 17.2 H Plt Count 196 MPV 10.8 Immature Gran % (Auto) 0.4 Neut % (Auto) 82.3 Lymph % (Auto) 9.8 Kidder % (Auto) 6.3 Eos % (Auto) 0.8 Baso % (Auto) 0.4 Neut # (Auto) 7.37 H Lymph # (Auto) 0.88 L Kidder # (Auto) 0.56 Eos # (Auto) 0.07 Baso # (Auto) 0.04 Immature Gran # (Auto) 0.04 Absolute Nucleated RBC 0.02 Nucleated RBC % (auto) 0.2 Sodium 132 L Potassium 4.5 Chloride 92 L Carbon Dioxide 21 Anion Gap 19 H BUN 66 H Creatinine 5.11 H* Est Cr Clr Drug Dosing Not Reportable Est GFR ( Amer) 8.9 Est GFR (Non-Af Amer) 7.7 BUN/Creatinine Ratio 12.9 Glucose 179 H POC Glucose Estimat Average Glucose 134 Hemoglobin A1c 6.3 H Calcium 9.9 Magnesium 2.6 H Troponin I High Sens 198.7 H* 178.5 H* 184.1 H* 11/29/23 08:56 WBC RBC Hgb Hct MCV MCH MCHC RDW Std Deviation RDW Coeff of Amparo Plt Count MPV Immature Gran % (Auto) Neut % (Auto) Lymph % (Auto) Kidder % (Auto) Eos % (Auto) Baso % (Auto) Neut # (Auto) Lymph # (Auto) Kidder # (Auto) Eos # (Auto) Baso # (Auto) Immature Gran # (Auto) Absolute Nucleated RBC Nucleated RBC % (auto) Sodium Potassium Chloride Carbon Dioxide Anion Gap BUN Creatinine Est Cr Clr Drug Dosing Est GFR ( Amer) Est GFR (Non-Af Amer) BUN/Creatinine Ratio Glucose POC Glucose 157 H Estimat Average Glucose Hemoglobin A1c Calcium Magnesium Troponin I High Sens Diagnostic Findings XR chest 1V portable Comparison: Comparison is made to chest radiograph 10/16/2023 FINDINGS: Right shoulder orthopedic hardware is seen. Dual-lumen venous catheter is unchanged. Cardiomegaly is noted. The aortic arch is calcified. The silhouette is partially obscured. There is prominence and cephalization of the vasculature with Natalie B lines seen. Small bilateral pleural effusions are seen. IMPRESSION: Cardiomegaly and moderate pulmonary edema. Small bilateral pleural effusions. These findings are similar in extent to exam of September. ECG Additional Comments: Sinus rhythm with 2nd degree A-V block (Mobitz I) Low voltage QRS Non-specific intra-ventricular conduction delay Diffuse Nonspecific ST and T wave abnormality Abnormal ECG When compared with ECG of 17-OCT-2023 10:14, No significant change PG Care Time/CCT Total # of Minutes Spent Total Time Spent with Patient: Total time spent is greater than 50% in coordination of care (as documented) at patient's floor/unit and/or counseling patient: Coding Level of Care Code 39708 IN/OBS CONSULT LVL 5,80M Diagnoses ESRD (end stage renal disease) N18.6 Anemia D64.9 Right hip pain M25.551 Breast cancer C50.912 Breast location: unspecified site of breast Estrogen receptor status: unspecified Laterality: left Patient sex: female (4) Breast cancer Breast location: unspecified site of breast Estrogen receptor status: unspecified Laterality: left Patient sex: female Qualified Code(s): C50.912 - Malignant neoplasm of unspecified site of left female breast
--- NOTE | 2023-11-29 12:49 | XRay Report ---
SINGLE VIEW PELVIS; 2 VIEWS RIGHT HIP; 2 VIEWS LEFT HIP CLINICAL HISTORY: Bilateral hip pain. FINDINGS: An AP view of the pelvis with AP and frog-leg views of the right and left hip are correlate d with pelvic CT dated 10/18/2023. The skeletal structures are osteopenic. There is no radiographic ev idence of acute fracture involving the hips or bony pelvis. Moderate arthritic change and joint space narrowing is seen in both hips, right greater left. There is no radiographic evidence of avascular n ecrosis of the femoral heads. There is degenerative sclerosis of the sacroiliac joints. The sacral sp ondylosis is partially visualized. Enthesophytes arise from the anterior superior iliac spines. The o verlying soft tissues are within normal limits. There is advanced other sclerotic calcification of th e femoral arteries. Calcified fibroids are noted in the pelvis. IMPRESSION: Osteopenia and degenerative change as above with no acute bony abnormality identified. Electronically signed by: Sukh Hilario M.D. 11/29/2023 12:47 PM
--- NOTE | 2023-11-29 16:11 | Orthopedic Consultation ---
Date of Consultation November 29, 2023 Assessment & Plan (1) Osteoarthritis, hip, bilateral: Conservative treatments were reviewed with the patient. Since the patient was set up to see interventional radiology for intra-articular steroid injection, I recommend the patient be seen by interventional radiology while inpatient and hopefully can have the injections while here. If her pain improves significantly, she may be able to discharge home and follow-up as an outpatient to have the hips injected as previously scheduled. She may weight-bear as tolerated bilateral lower extremities. Orthopedics will sign off at this time. The patient may follow-up with us on an as-needed basis. History of Present Illness Reason for Consultation: Bilateral hip pain Attending Physician: Cliff Fishman MD History of Present Illness This is a patient who is known to the [facility] [place] [facility]. She had previously been seen for hip pain by one of our sports medicine doctors, Dr. Shipman. He had offered corticosteroid injections intra-articular to each hip but she was unable to get up onto the exam table's in our office. Later, her PCP set up interventional radiology for intra-articular injections. The pain became too severe last evening and she came to the emergency room. She was scheduled earlier today for her outpatient visit with interventional radiology. She did not have the injections today as they were waiting for the consult from interventional radiology. She was also seen earlier today for dialysis. We were consulted for evaluation of bilateral hip pain. Allergies Allergy/AdvReac Type Severity Reaction Status Date / Time amoxicillin Allergy Severe LIPS Verified 11/29/23 01:02 SWELLED, "RED ALL OVER" doxycycline Allergy Severe LIPS Verified 11/29/23 01:02 SWELLED, "RED ALL OVER". cephalexin [From Keflex] Allergy Intermediate skin Verified 11/29/23 01:02 starts to peel off sulfamethoxazole Allergy Unknown CAN'T Verified 11/29/23 01:02 [From Bactrim] REMEMBER trimethoprim [From Bactrim] Allergy Unknown CAN'T Verified 11/29/23 01:02 REMEMBER atorvastatin AdvReac Intermediate Myalgia Verified 11/29/23 01:02 Home Medications Medication Instructions Recorded Confirmed Type omega-3 fatty acids 1,000 mg 2,000 mg (2 x 1,000 mg) PO BID 07/19/22 11/29/23 Rx capsule #360 caps allopurinol 100 mg tablet 50 mg (1/2 x 100 mg) PO DAILY #45 10/03/23 03/05/24 Rx tabs furosemide 40 mg tablet 40 mg PO BID #180 tabs 06/28/23 11/29/23 Rx insulin aspart U-100 100 unit/mL See Rx Instructions subcut 06/28/23 11/29/23 Rx (3 mL) subcutaneous pen (Novolog DIRECTED #135 mL FlexPen U-100 Insulin aspart) lidocaine 5 % topical patch 1 patch topical DAILY #30 ea 06/28/23 11/29/23 Rx metoprolol succinate 25 mg 25 mg PO DAILY #90 tabs 06/28/23 11/29/23 Rx tablet,extended release 24 hr pen needle, diabetic 32 gauge x #600 ea 06/28/23 10/16/23 Rx 5/32" (BD Sheila 2nd Gen Pen Needle) venlafaxine 75 mg capsule,extended 75 mg PO DAILY #90 caps 06/28/23 11/29/23 Rx release 24 hr prednisone 10 mg tablet 10 mg PO DAILY #30 tabs 09/06/23 11/29/23 Rx insulin glargine 100 unit/mL (3 10 unit subcut BID 09/13/23 11/29/23 History mL) subcutaneous pen (Lantus Solostar U-100 Insulin) mirtazapine 7.5 mg tablet 7.5 mg PO HS #30 tabs 10/05/23 11/29/23 Rx ondansetron HCl 4 mg tablet 4 mg PO Q4H PRN nausea and 10/05/23 11/29/23 Rx vomiting #30 tabs oxycodone 5 mg tablet 5 mg PO Q4H PRN pain #30 tabs 10/05/23 11/29/23 Rx tramadol 50 mg tablet 50 mg PO Q6H PRN Pain #60 tabs 11/25/23 11/29/23 Rx Patient History Medical History 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 (09/13/23) Intractable back pain CKD (chronic kidney disease) stage V requiring chronic dialysis Elevated troponin Anemia Iron deficiency anemia (HFpEF) heart failure with preserved ejection fraction Mobitz type 1 second degree AV block Breast cancer diagnosed 2020 Statin myopathy Hyperuricemia Crystal arthropathy Candidal intertrigo Chronic stasis dermatitis Dyslipidemia Seborrheic dermatitis Type 2 diabetes mellitus HTN (hypertension) GERD (gastroesophageal reflux disease) MCKENZIE (nonalcoholic steatohepatitis) Surgical History History of tonsillectomy and adenoidectomy Hx of cholecystectomy History of appendectomy Humerus fracture surgical repair Family History Father Depression Diabetes Mother Hypertension Kidney stones Gallbladder disease Denies family history of Ovarian cancer Prostate cancer Myocardial infarction Breast cancer Colorectal cancer Social History Smoking Status: Never smoker Second Hand Exposure: No; Do You Dip or Chew Tobacco: No; Tobacco Cessation Education Requested by Patient: No Hx Alcohol Use: No Hx Substance Use: No Preferred Language: Peruvian Communication Ability: Effective Visual Impairment: Limited Hearing Ability: Normal Explosives Mixer Operator Required: No Beliefs That Will Affect Care: None marital status: Current Living Situation: Significant Other Current Living Situation Comment: lives at home with and caregiver 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 Other Information That Helps Us Care for You: No Feels Safe at Home: Yes Safety Concerns: Feels Safe At This Time Childhood Exposure to Second-Hand Smoke: No Diet: regular Dental Care, Regularly: Yes Physical Activity Frequency: Does not Exercise Seatbelt Use: never Sunscreen Use: No Assistive Devices: Cane, Glasses and Wheelchair Physical Exam Constitutional: WD/WN, vitals as above no acute distress (Lying comfortably on the litter in the ED.) Musculoskeletal: Hip: + joint line tenderness (Bilateral tenderness at the groin) and + BETH test positive (Bilateral); no deformity, no skin erythema and no ecchymosis Skin: no rashes, warm and dry Trauma: no evidence of skin trauma Neurologic: normal touch/pain/proprioception Psychiatric: A+Ox3, euthymic affect Speech: normal rate/rhythm/volume of speech Results & Data Vital Signs (Past 12 Hours) Vital Signs Temp Pulse Pulse Pulse Resp BP BP 11/29/23 15:17 78 20 136/43 L 11/29/23 15:15 36.4 C L 66 96/57 L 11/29/23 14:30 66 79/38 L 11/29/23 14:00 62 101/58 L 11/29/23 13:30 59 L 85/36 L 11/29/23 13:00 76 85/52 L 11/29/23 12:30 80 119/53 L 11/29/23 12:00 71 83/43 L 11/29/23 11:38 84 93/46 L 11/29/23 11:30 70 80/41 L 11/29/23 11:00 92 H 114/57 L 11/29/23 10:54 75 102/54 L 11/29/23 10:49 36.3 C L 100 H 11/29/23 09:00 86 18 134/74 11/29/23 09:00 86 17 134/74 11/29/23 07:44 74 11/29/23 06:00 82 16 11/29/23 06:00 82 16 123/75 11/29/23 05:50 82 20 11/29/23 05:40 84 19 11/29/23 05:30 84 20 11/29/23 05:20 76 14 11/29/23 05:10 77 23 11/29/23 05:00 79 19 11/29/23 05:00 79 19 123/73 11/29/23 04:50 82 16 11/29/23 04:40 76 21 11/29/23 04:35 11/29/23 04:30 78 18 11/29/23 04:20 74 20 11/29/23 04:10 75 20 Pulse Ox O2 Del Method O2 Flow Rate 11/29/23 15:17 11/29/23 15:15 11/29/23 14:30 11/29/23 14:00 11/29/23 13:30 11/29/23 13:00 11/29/23 12:30 11/29/23 12:00 11/29/23 11:38 11/29/23 11:30 11/29/23 11:00 11/29/23 10:54 11/29/23 10:49 11/29/23 09:00 100 Nasal Cannula 2 11/29/23 09:00 100 Nasal Cannula 2 11/29/23 07:44 11/29/23 06:00 99 11/29/23 06:00 99 11/29/23 05:50 99 11/29/23 05:40 99 11/29/23 05:30 99 11/29/23 05:20 99 11/29/23 05:10 99 11/29/23 05:00 99 11/29/23 05:00 99 Nasal Cannula 2 11/29/23 04:50 99 11/29/23 04:40 99 11/29/23 04:35 Nasal Cannula 2 11/29/23 04:30 99 11/29/23 04:20 100 11/29/23 04:10 100 Diagnostic Findings Bilateral hip x-rays were independently reviewed by myself. These demonstrate stable, moderate arthritic changes of the hip joints. Previous abdominal and pelvis CT were also reviewed and noted arthritic changes with narrowing toward the posterior aspect of the joint.
[2023-11-29] MEDS: oxyCODONE HCL IR 5 MG TAB (IMMEDIATE RELEASE) PO PRN (16:53)
[2023-11-29] MEDS: MIRTAZAPINE TAB 15 MG TAB PO SCH (22:15)
[2023-11-30 05:15] LABS: Albumin Level 3.5 gm/dl (3.4-5.0); Calcium 9.3 mg/dl (8.6-10.3); Creatinine Clr Calc Pharmacy 16.1 ml/min; Est GFR (African American) 16.3 ml/min; Phosphorus 5.1 mg/dl (2.5-4.9); Potassium 4.7 mmol/L (3.5-5.1)
--- NOTE | 2023-11-30 10:12 | Nephrology Progress Note ---
Date of Service November 30, 2023 Assessment & Plan (1) ESRD (end stage renal disease): Plan: Outpatient HD Rx: M&F [facility] 2.5hr, 2K 2Ca, F-180NR, EDW 90 kg. Missed treatment Tuesday. Completed treatment yesterday with limited UF. Volume status acceptable this AM. Electrolytes are controlled. Will plan HD tomorrow as inpatient assuming Pauline is not discharged. Continue furosemide as Rx to encourage urine output. Renal diet and 1.2 daily fluid restriction. (2) Anemia: Plan: Outpatient Rx Venofer 100 mg IVP with HD and Micera 30 IVP q 2 weeks with HD. TUNDE held with Hgb >11. (3) Right hip pain: Plan: IR intervention planned today. (4) Breast cancer: Admission and Anticipated Discharge Date Admission Date: November 29, 2023 Subjective No acute events overnight. Pauline was resting comfortably in her bedside chair this AM. She continues to endorse BL hip pain. HD yesterday complicated by low blood pressure and limited UF. Pauline denies fluid retention or edema today. She is breathing comfortably. Review of Systems Review of Systems: All systems reviewed & are unremarkable except as noted in HPI & below Physical Exam Constitutional: well developed; no acute distress Eyes: no scleral abnormality and no corneal abnormality ENMT: Mouth: oral mucous membranes not dry Neck: normal visual inspection and trachea midline Respiratory: normal respiratory effort Auscultation: lungs clear to auscultation bilaterally Cardiovascular: Rate/Rhythm: regular rate, regular rhythm and + irregularly irregular Heart Sounds: normal S1 and normal S2 Extremities: + edema Musculoskeletal: Extremities: no cyanosis and no clubbing Skin: normal turgor; no lesions Neurologic: Motor/Sensory: no tremor and no asterixis Psychiatric: Orientation: alert and oriented x 3 Results & Data Vital Signs (Past 12 Hours) Vital Signs Pulse Pulse Pulse Resp BP BP Pulse Ox 11/30/23 08:03 80 11/30/23 05:01 70 13 122/60 100 11/30/23 04:01 74 21 131/69 95 11/30/23 03:01 70 22 121/64 97 11/30/23 01:00 67 17 121/63 99 11/30/23 00:01 108/60 11/30/23 00:01 66 15 100 11/30/23 00:00 63 16 95 11/29/23 23:03 63 11/29/23 23:00 131/78 11/29/23 23:00 66 18 100 11/29/23 23:00 66 66 18 131/78 100 O2 Del Method O2 Flow Rate 11/30/23 08:03 11/30/23 05:01 Nasal Cannula 2 11/30/23 04:01 Nasal Cannula 2 11/30/23 03:01 Nasal Cannula 2 11/30/23 01:00 Nasal Cannula 2 11/30/23 00:01 11/30/23 00:01 Nasal Cannula 2 11/30/23 00:00 Nasal Cannula 2 11/29/23 23:03 11/29/23 23:00 11/29/23 23:00 Nasal Cannula 2 11/29/23 23:00 Nasal Cannula 2 Laboratory Results Laboratory Results - last 24 hr 11/29/23 11/29/23 11/30/23 17:49 22:20 03:32 Sodium Potassium Chloride Carbon Dioxide Anion Gap BUN Creatinine Est Cr Clr Drug Dosing Est GFR ( Amer) Est GFR (Non-Af Amer) BUN/Creatinine Ratio Glucose POC Glucose 137 H 113 H Calcium Phosphorus Albumin Nasal Screen MRSA (PCR) Negative 11/30/23 11/30/23 04:41 09:10 Sodium 135 L Potassium 4.7 Chloride 100 Carbon Dioxide 24 Anion Gap 11 BUN 31 H D Creatinine 3.10 H D Est Cr Clr Drug Dosing 16.1 Est GFR ( Amer) 16.3 Est GFR (Non-Af Amer) 14.0 BUN/Creatinine Ratio 10.0 Glucose 101 H POC Glucose 97 Calcium 9.3 Phosphorus 5.1 H Albumin 3.5 Nasal Screen MRSA (PCR) PG Care Time/CCT Total # of Minutes Spent Total Time Spent with Patient: Total time spent is greater than 50% in coordination of care (as documented) at patient's floor/unit and/or counseling patient: Coding Level of Care Code 86434 SUB INP/OBS CARE 3/50MIN Diagnoses ESRD (end stage renal disease) N18.6 Anemia D64.9 Right hip pain M25.551 Breast cancer C50.912 Breast location: unspecified site of breast Estrogen receptor status: unspecified Laterality: left Patient sex: female (4) Breast cancer Breast location: unspecified site of breast Estrogen receptor status: unspecified Laterality: left Patient sex: female Qualified Code(s): C50.912 - Malignant neoplasm of unspecified site of left female breast
[2023-11-30] MEDS: MoRPHine SULFATE 2 MG/ML CARP IV STA (14:24)
--- NOTE | 2023-11-30 14:27 | Fluoroscopy Report ---
FLUOROSCOPIC GUIDED RIGHT HIP STEROID INJECTION CLINICAL HISTORY: Hip pain with osteoarthritis PROCEDURE: Procedure and risks were explained. Informed consent was obtained. A final timeout was com pleted. The patient was placed supine on the fluoroscopic exam table. The hip was prepped and draped in sterile fashion. 1% lidocaine was utilized for skin anesthesia. Utilizing fluoroscopic guidance, a 20-gauge needle was advanced into the right hip joint capsule. A s mall amount of iodinated contrast was injected confirming intra-articular needle position. Permanent spot images were obtained. Next, a solution containing 40 mg Kenalog, 3 mL of 0.5% Sensorcaine and 2 mL of 1% lidocaine was injected into the hip joint. The needle was removed and Band-Aid applied. The patient tolerated the procedure well. Total fluoroscopy time 2.47 minutes. DAP is 20.2 mcGy/m2. IMPRESSION: Right hip steroid injection as detailed above. Performed, dictated, and signed by Anthony Gifford PA-C; to be co-signed by Dr. Sukh Hilario. Electronically signed by: Sukh Hilario M.D. 11/30/2023 2:37 PM
--- NOTE | 2023-11-30 14:28 | Fluoroscopy Report ---
FLUOROSCOPIC GUIDED LEFT HIP STEROID INJECTION CLINICAL HISTORY: Hip pain with osteoarthritis PROCEDURE: Procedure and risks were explained. Informed consent was obtained. A final timeout was com pleted. The patient was placed supine on the fluoroscopic exam table. The hip was prepped and draped in sterile fashion. 1% lidocaine was utilized for skin anesthesia. Utilizing fluoroscopic guidance, a 20-gauge needle was advanced into the left hip joint capsule. A sm all amount of iodinated contrast was injected confirming intra-articular needle position. Permanent s pot images were obtained. Next, a solution containing 40 mg Kenalog, 3 mL of 0.5% Sensorcaine and 2 m L of 1% lidocaine was injected into the hip joint. The needle was removed and Band-Aid applied. The p atient tolerated the procedure well. Total fluoroscopy time 0.41 minutes. DAP is 4.71 mcGy/m2. IMPRESSION: Left hip steroid injection as detailed above. Performed, dictated, and signed by Anthony Gifford PA-C; to be co-signed by Dr. Sukh Hilario. Electronically signed by: Sukh Hilario M.D. 11/30/2023 2:37 PM
[2023-11-30] MEDS ORDERED: MoRPHine SULFATE 2 MG/ML CARP IV PRN (14:43)
--- NOTE | 2023-11-30 15:16 | Hospitalist Progress Note ---
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 twice daily, metoprolol succinate extended release 25 mg daily (4) Type 2 diabetes mellitus: Plan: basal bolus insulin and follow poc bsg (5) MCKENZIE (nonalcoholic steatohepatitis): Plan: chronic and stable (6) Hyponatremia: Plan: sodium is 131 hopeful to correct with dialysis Plan Heparin for DVT prevention full code PT/OT evaluation Admission and Anticipated Discharge Date Admission Date: November 29, 2023 Subjective pt was resting in anticipation of upcoming intra articular injections of both hips, hopes to return home afterward Physical Exam Physical Exam: cardiac exam is regular lungs remain diminished painful hips bilaterally with minimal movement Results & Data Results & Data Vital Signs (Past 12 Hours) Vital Signs Pulse Pulse Resp BP BP Pulse Ox O2 Del Method 11/30/23 13:58 88 20 117/72 98 Nasal Cannula 11/30/23 13:43 90 21 126/68 98 Nasal Cannula 11/30/23 09:00 84 20 97/57 L 98 Nasal Cannula 11/30/23 08:03 80 11/30/23 05:01 70 13 122/60 100 Nasal Cannula 11/30/23 04:01 74 21 131/69 95 Nasal Cannula O2 Flow Rate 11/30/23 13:58 2 11/30/23 13:43 2 11/30/23 09:00 2 11/30/23 08:03 11/30/23 05:01 2 03/06/24 04:01 2 Laboratory Results reviewed cbc reviewed chemistry PG Care Time/CCT Total # of Minutes Spent Total Time Spent with Patient: Total time spent is greater than 50% in coordination of care (as documented) at patient's floor/unit and/or counseling patient: Coding Level of Care Code 41091 SUB INP/OBS CARE 2/35MIN Diagnoses Acute hip pain, bilateral M25.551; M25.552 ESRD needing dialysis N18.6; Z99.2 Atrial fibrillation I48.91 Type 2 diabetes mellitus E11.9 MCKENZIE (nonalcoholic steatohepatitis) K75.81 Hyponatremia E87.1
[2023-11-30] MEDS: MoRPHine SULFATE 4 MG/ML 1 ML CARP\\VIAL IV PRN (17:22)
[2023-11-30] MEDS: TRIAMCINOLONE ACET 40 MG/ML VIAL ONE (17:42)
[2023-11-30] MEDS: BUPIVACAINE 0.5 % 5 MG/1 ML MPF 30ML VIAL ONE (17:42)
[2023-12-01 05:05] LABS: Hematocrit (blood only) 32.3 % (37.0-47.0); Hemoglobin 10.1 g/dl (12.0-16.0); Mean Corpuscular Hemoglobin 35.1 pg (25.0-34.0); Mean Corpuscular Hgb Conc 31.3 g/dL (32.0-36.0); Mean Corpuscular Volume 112.2 fL (80.0-100.0); Mean Platelet Volume 11.1 fL (9.4-12.4); Nucleated RBC # (auto) 0.06 K/uL (0.00-0.12); Nucleated RBC % (auto) 0.9 %; Platelet Count 221 K/uL (130-400); RDW Coefficient of Variation 17.3 % (11.5-14.5); RDW Standard Deviation 71.1 fL (36.4-46.3); Red Blood Count 2.88 M/uL (4.20-5.40)
[2023-12-01 06:51] LABS: Albumin Level 3.7 gm/dl (3.4-5.0); BUN Creatinine Ratio 10.5 (10-20); Bilirubin,Total 1.3 mg/dl (0.2-1.0); Calcium 9.6 mg/dl (8.6-10.3); Creatinine Clr Calc Pharmacy 12.2 ml/min; Est GFR (African American) 11.6 ml/min; Globulin 3.6 gm/dl (2.5-4.0); Phosphorus 7.5 mg/dl (2.5-4.9); Potassium 6.3 mmol/L (3.5-5.1); Total Protein 7.3 gm/dl (6.0-8.3)
[2023-12-01] MEDS ORDERED: STAT IV/IM STA (07:00)
[2023-12-01] MEDS: INSULIN HUMAN REGULAR PER UNIT 10 UNITS in SYRINGE 9.9 ML IV ONE (07:36)
[2023-12-01] MEDS: DEXTROSE 50% 50 ML SYRINGE IV ONE (07:36)
[2023-12-01] MEDS: CALCIUM GLUCONATE 10% 1,000 MG in SODIUM CHLOR 0.9% MINI-B 50 ML IV ONE (07:43)
[2023-12-01] MEDS: HYDROCORTISONE SOD 50 MG in SYRINGE 0 ML IV ONE (08:51)
[2023-12-01 09:09] LABS: Base Excess VBG -9.3 mEq/L; HCO3 VBG 17 mmol/L; Oxygen Saturation VBG < 60.0 %; PCO2 VBG 38 mmHg (38-50); PO2 VBG 23 mmHg; pH VBG 7.26 (7.36-7.41)
--- NOTE | 2023-12-01 09:13 | Hospitalist Progress Note ---
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 (2) Acute hip pain, bilateral: Plan: Acute bilateral hip pain-acute on chronic, pending x ray, consult [facility] has outpt appt with them Acetaminophen 1000m tid scheduled Oxycodone 5 mg by mouth every 4 hours as needed for moderate pain Dilaudid 0.25 mg IV every 3 hours as needed for severe pain IR directed b/l intraarticular injections 11/30/23, severe pain afterward, did have mophine, causes confusion (3) Atrial fibrillation: Plan: Chronc and stable Typically rate controlled with metoprolol Elevated Troponin initially 198.7, with follow-up 178.5, Demand ischemia and associated renal disease impacting elevation do not suspect ACS HFimpEF chronic, Continue furosemide 40 mg p.o. twice daily, metoprolol succinate extended release 25 mg daily (4) Type 2 diabetes mellitus: Plan: basal bolus insulin and follow poc bsg (5) MCKENZIE (nonalcoholic steatohepatitis): Plan: chronic and stable (6) Hyponatremia: Plan: sodium is 131 hopeful to correct with dialysis (7) Encephalopathy: Plan: Patient with encephalopathy likely toxic from morphine. Evaluation for metabolic encephalopathy including blood cultures urine culture. Notation of elevation of LFTs which are minor with no corroborating changes on physical exam. Previous cholecystectomy. Will repeat laboratories in 1 day. No changes in antibiotic coverage etc. unless a defined fraction was found Plan Heparin for DVT prevention full code PT/OT evaluation Admission and Anticipated Discharge Date Admission Date: November 29, 2023 Subjective pt is improved did have morphine last pm with poor outcome as far as confusion did have urgent dialysis today as treatment for hyperkalemia, no other clinical deterioration Physical Exam Physical Exam: cardiac exam is regular lungs remain diminished abd is soft and non tender, does not have ruq pain painful hips bilaterally with minimal movement Results & Data Results & Data Vital Signs (Past 12 Hours) Vital Signs Temp Pulse Pulse Pulse Resp BP Pulse Ox 12/01/23 07:59 48 L 12/01/23 07:48 48 L 16 121/75 94 12/01/23 07:46 98.2 F 50 L 16 89/31 L 95 12/01/23 03:55 97.9 F 65 18 89/55 L 99 11/30/23 23:18 97.9 F 60 20 92/59 L 100 O2 Del Method O2 Flow Rate 12/01/23 07:59 12/01/23 07:48 Nasal Cannula 1 12/01/23 07:46 Nasal Cannula 1 12/01/23 03:55 Nasal Cannula 1 11/30/23 23:18 Nasal Cannula 1 Laboratory Results review cbc review chemistry ordered acute treatment for hyperkalemia, and recheck PG Care Time/CCT Total # of Minutes Spent Total Time Spent with Patient: Total time spent is greater than 50% in coordination of care (as documented) at patient's floor/unit and/or counseling patient: Coding Level of Care Code 29318 SUB INP/OBS CARE 3/50MIN Diagnoses ESRD needing dialysis N18.6; Z99.2 Acute hip pain, bilateral M25.551; M25.552 Atrial fibrillation I48.91 Type 2 diabetes mellitus E11.9 MCKENZIE (nonalcoholic steatohepatitis) K75.81 Hyponatremia E87.1 Encephalopathy G93.40
--- NOTE | 2023-12-01 09:42 | Electrocardiogram Report ---
Test Reason : Blood Pressure : / mmHG Vent. Rate : 050 BPM Atrial Rate : 050 BPM P-R Int : 082 ms QRS Dur : 126 ms QT Int : 480 ms P-R-T Axes : 000 121 162 degrees QTc Int : 437 ms Sinus rhythm with probable 2:1 A-V block Non-specific intra-ventricular conduction block Diffuse Nonspecific T wave abnormality Abnormal ECG When compared with ECG of 28-NOV-2023 23:38, Vent. rate has decreased BY 37 BPM Confirmed by Triston Jones ([id number]) on 12/01/2023 9:41:21 AM Referred By: REFERRED SELF Confirmed By:Triston Jones
[2023-12-01] MEDS: MAGNESIUM SULFATE / D5W 1 GM/100 ML BAG IV ONE (10:04)
[2023-12-01 10:25] LABS: BUN Creatinine Ratio 10.8 (10-20); Calcium 9.6 mg/dl (8.6-10.3); Creatinine Clr Calc Pharmacy 11.5 ml/min; Est GFR (African American) 10.8 ml/min; Est GFR (Non-African American) 9.3 ml/min; Potassium 6.2 mmol/L (3.5-5.1)
--- NOTE | 2023-12-01 13:31 | Nephrology Progress Note ---
Date of Service December 01, 2023 Assessment & Plan (1) ESRD (end stage renal disease): Plan: Outpatient HD Rx: M&F [facility] 2.5hr, 2K 2Ca, F-180NR, EDW 90 kg. Orders for HD today entered into the EHR and reviewed with the collar tacker. Qb at goal. Hypotensive but otherwise tolerating treatment well. Continue furosemide as Rx to encourage urine output. Renal diet and 1.2 daily fluid restriction. (2) Anemia: Plan: Outpatient Rx Venofer 100 mg IVP with HD and Micera 30 IVP q 2 weeks with HD. TUNDE held with Hgb >11. (3) Right hip pain: (4) Breast cancer: Admission and Anticipated Discharge Date Admission Date: November 29, 2023 Subjective Pauline was reportedly very lethargic and confused this AM prior to my assessment. She was hallucinating and disoriented for the RN. Evaluation notable for bradycardia with PVCs and hypotension. Beach was placed this AM and Pauline reported significant pain with this experience. She was feeling better when I evaluated her. I discussed the plan of care with Dr. Fishman and the HD RN. Pauline was taken for HD and follow up was provided during treatment. She is tolerating HD reasonably well. She denies chest pains. She denies significant dyspnea. Hip pain persists but with some mild improvement noted. Review of Systems Review of Systems: All systems reviewed & are unremarkable except as noted in HPI & below Physical Exam Constitutional: well developed; no acute distress Eyes: no scleral abnormality and no corneal abnormality ENMT: Mouth: oral mucous membranes not dry Neck: normal visual inspection and trachea midline Respiratory: normal respiratory effort Auscultation: lungs clear to auscultation bilaterally Cardiovascular: Rate/Rhythm: + irregularly irregular Heart Sounds: normal S1 and normal S2 Extremities: + edema Musculoskeletal: Extremities: no cyanosis and no clubbing Skin: normal turgor; no lesions Neurologic: Motor/Sensory: no tremor and no asterixis Psychiatric: Orientation: alert and oriented x 3 Results & Data Vital Signs (Past 12 Hours) Vital Signs Temp Pulse Pulse Pulse Resp BP BP 12/01/23 12:30 63 80/45 L 12/01/23 12:00 53 L 95/51 L 12/01/23 11:30 55 L 114/39 L 12/01/23 11:27 36.3 C L 50 L 20 108/66 12/01/23 11:26 46 L 111/62 12/01/23 11:20 36.5 C 52 L 12/01/23 08:00 12/01/23 07:59 48 L 12/01/23 07:48 48 L 16 121/75 12/01/23 07:46 36.8 C 50 L 16 89/31 L 12/01/23 03:55 36.6 C 65 18 89/55 L Pulse Ox O2 Del Method O2 Flow Rate 12/01/23 12:30 12/01/23 12:00 12/01/23 11:30 12/01/23 11:27 96 Nasal Cannula 1 12/01/23 11:26 12/01/23 11:20 12/01/23 08:00 Nasal Cannula 1 12/01/23 07:59 12/01/23 07:48 94 Nasal Cannula 1 12/01/23 07:46 95 Nasal Cannula 1 12/01/23 03:55 99 Nasal Cannula 1 Laboratory Results Laboratory Results - last 24 hr 11/30/23 11/30/23 12/01/23 17:12 19:50 04:40 WBC 6.80 RBC 2.88 L Hgb 10.1 L Hct 32.3 L MCV 112.2 H MCH 35.1 H MCHC 31.3 L RDW Std Deviation 71.1 H RDW Coeff of Amparo 17.3 H Plt Count 221 MPV 11.1 Absolute Nucleated RBC 0.06 Nucleated RBC % (auto) 0.9 VBG pH VBG pCO2 VBG pO2 VBG HCO3 VBG O2 Saturation VBG Base Excess Sodium Cancelled Potassium Cancelled Chloride Cancelled Carbon Dioxide Cancelled Anion Gap Cancelled BUN Cancelled Creatinine Cancelled Est Cr Clr Drug Dosing Cancelled Est GFR ( Amer) Cancelled Est GFR (Non-Af Amer) Cancelled BUN/Creatinine Ratio Cancelled Glucose Cancelled POC Glucose 137 H 162 H Calcium Cancelled Phosphorus Cancelled Total Bilirubin Cancelled AST Cancelled ALT Cancelled Alkaline Phosphatase Cancelled Ammonia Troponin I High Sens Total Protein Cancelled Albumin Cancelled Globulin Cancelled Albumin/Globulin Ratio Cancelled 12/01/23 12/01/23 12/01/23 05:50 07:26 08:29 WBC RBC Hgb Hct MCV MCH MCHC RDW Std Deviation RDW Coeff of Amparo Plt Count MPV Absolute Nucleated RBC Nucleated RBC % (auto) VBG pH VBG pCO2 VBG pO2 VBG HCO3 VBG O2 Saturation VBG Base Excess Sodium 130 L Potassium 6.3 H* D Chloride 95 L Carbon Dioxide 18 L Anion Gap 17 H BUN 43 H Creatinine 4.09 H D Est Cr Clr Drug Dosing 12.2 Est GFR ( Amer) 11.6 Est GFR (Non-Af Amer) 10.0 BUN/Creatinine Ratio 10.5 Glucose 191 H POC Glucose 194 H 263 H Calcium 9.6 Phosphorus 7.5 H Total Bilirubin 1.3 H AST 119 H ALT 90 H Alkaline Phosphatase 263 H Ammonia Troponin I High Sens Total Protein 7.3 Albumin 3.7 Globulin 3.6 Albumin/Globulin Ratio 1.0 12/01/23 12/01/23 08:49 09:49 WBC RBC Hgb Hct MCV MCH MCHC RDW Std Deviation RDW Coeff of Amparo Plt Count MPV Absolute Nucleated RBC Nucleated RBC % (auto) VBG pH 7.26 L VBG pCO2 38 VBG pO2 23 VBG HCO3 17 VBG O2 Saturation < 60.0 VBG Base Excess -9.3 Sodium 130 L Potassium 6.2 H* Chloride 95 L Carbon Dioxide 16 L Anion Gap 19 H BUN 47 H Creatinine 4.36 H Est Cr Clr Drug Dosing 11.5 Est GFR ( Amer) 10.8 Est GFR (Non-Af Amer) 9.3 BUN/Creatinine Ratio 10.8 Glucose 241 H POC Glucose Calcium 9.6 Phosphorus Total Bilirubin AST ALT Alkaline Phosphatase Ammonia 50.0 Troponin I High Sens 111.8 H* Total Protein Albumin Globulin Albumin/Globulin Ratio PG Care Time/CCT Total # of Minutes Spent Total Time Spent with Patient: Total time spent is greater than 50% in coordination of care (as documented) at patient's floor/unit and/or counseling patient: Coding Level of Care Code 80427 SUB INP/OBS CARE 3/50MIN Diagnoses ESRD (end stage renal disease) N18.6 Anemia D64.9 Right hip pain M25.551 Breast cancer C50.912 Breast location: unspecified site of breast Estrogen receptor status: unspecified Laterality: left Patient sex: female (4) Breast cancer Breast location: unspecified site of breast Estrogen receptor status: unspecified Laterality: left Patient sex: female Qualified Code(s): C50.912 - Malignant neoplasm of unspecified site of left female breast
[2023-12-02 03:27] LABS: A calco-baum cmplx NotReported Not Detected (NotDetected); Bact fragilis Not Reported Not Detected (NotDetected); Blood Culture Id Panel PCR Panel Negative (NotDetected); C auris Not Reported Not Detected (NotDetected); Calbicans Not Reported Not Detected (NotDetected); Candida glabrata Not Reported Not Detected (NotDetected); Candida krusei Not Reported Not Detected (NotDetected); Cneoformans/gatti Not Reported Not Detected (NotDetected); Cparapsilosis Not Reported Not Detected (NotDetected); E cloacae compx Not Reported Not Detected (NotDetected); Efaecalis Not Reported Not Detected (NotDetected); Efaecium Not Reported Not Detected (NotDetected); Enterobacterales Not Reported Not Detected (NotDetected); Escherichia coli Not Reported Not Detected (NotDetected); H influenzae Not Reported Not Detected (NotDetected); K aerogenes Not Reported Not Detected (NotDetected); Koxytoca Not Reported Not Detected (NotDetected); Kpneumoniae grp Not Reported Not Detected (NotDetected); Lmonocyt Not Reported Not Detected (NotDetected); N meningitidis Not Reported Not Detected (NotDetected); P aeruginosa Not Reported Not Detected (NotDetected); Proteus spp Not Reported Not Detected (NotDetected); Salmonella spp Not Reported Not Detected (NotDetected); Smarcescens Not Reported Not Detected (NotDetected); Staph lugdunensis Not Reported Not Detected (NotDetected); Staph spp. Not Reported Not Detected (NotDetected); Staphaureus Not Reported Not Detected (NotDetected); Staphepi Not Reported Not Detected (NotDetected); Stenmaltophilia Not Reported Not Detected (NotDetected); Strep agal(GrpB) Not Reported Not Detected (NotDetected); Strep pneum Not Reported Not Detected (NotDetected); Strep pyog (GrpA) Not Reported Not Detected (NotDetected); Strep spp Not Reported Not Detected (NotDetected)
[2023-12-02 03:51] LABS: Albumin Level 3.3 gm/dl (3.4-5.0); BUN Creatinine Ratio 11.7 (10-20); Bilirubin Direct 0.3 mg/dl (0-0.2); Bilirubin,Total 0.7 mg/dl (0.2-1.0); Calcium 9.3 mg/dl (8.6-10.3); Creatinine Clr Calc Pharmacy 17.7 ml/min; Est GFR (African American) 18.1 ml/min; Est GFR (Non-African American) 15.7 ml/min; Magnesium 2.4 mg/dl (1.7-2.4); Potassium 4.7 mmol/L (3.5-5.1); Total Protein 6.6 gm/dl (6.0-8.3)
--- NOTE | 2023-12-02 05:20 | Communication Note ---
1 of 2 blood culture positive for gram + cocci in chains, PCR did not identify organism. No clear source of infection. Plan to start on daptomycin until cultures grow. Date of Service: December 02, 2023
[2023-12-02] MEDS: DAPTOmycin 400 MG in SYRINGE 0 ML IV SCH (06:09)
--- NOTE | 2023-12-02 11:14 | Nephrology Progress Note ---
Date of Service December 02, 2023 Assessment & Plan (1) ESRD (end stage renal disease): Plan: Outpatient HD Rx: M&F [facility] 2.5hr, 2K 2Ca, F-180NR. EDW 90 kg. Dialyzes via RIJ TDC. Catheter functioning well. Exit site clean. Missed HD Tuesday and converted to TTS schedule while inpatient. Completed treatment yesterday with adequate clearance and UF. Will plan next HD tomorrow. Continue furosemide as Rx to encourage urine output. Renal diet and 1.2 daily fluid restriction. (2) Anemia: Plan: Outpatient Rx Venofer 100 mg IVP with HD and Micera 30 IVP q 2 weeks with HD. TUNDE held with Hgb >11. (3) Right hip pain: Plan: s/p IF steroid injection BL on 11/29. (4) Positive blood culture: Plan: 1/2 blood cultures from 11/30 --> GPC. Daptomycin dosed for IHD. Repeat cultures pending. LFTs elevated. Abdominal CT pending. Not septic. TDC with clean exit site. No indication for catheter removal at this time. (5) Encephalopathy: Plan: Improved. Likely secondary to pain medications - morphine. (6) Breast cancer: Admission and Anticipated Discharge Date Admission Date: November 29, 2023 Subjective No acute events overnight. Pauline was seen and evaluated with her partner (Adele) at the bedside. Pauline tolerated HD well yesterday no complications with treatment. She slept well last night. She is feeling more awake this AM. Mental status changes improved. She attributes confusion and lethargy to IV morphine. Pain control improved. She is resting more comfortably in bed. Appetite is fair. She denies fevers or chills. She denies abdominal pain but endorsed some mild discomfort. Nausea started post PO contrast for CT this AM. 1/2 blood cultures from 11/30 + GPC. Daptomycin started overnight. Review of Systems Review of Systems: All systems reviewed & are unremarkable except as noted in HPI & below Physical Exam Constitutional: well developed; no acute distress Eyes: no scleral abnormality and no corneal abnormality ENMT: Mouth: oral mucous membranes not dry Neck: normal visual inspection and trachea midline RIJ TDC with clean exit site Respiratory: normal respiratory effort Auscultation: lungs clear to auscultation bilaterally Cardiovascular: Rate/Rhythm: regular rate, regular rhythm and + irregularly irregular Heart Sounds: normal S1 and normal S2 Extremities: + edema Musculoskeletal: Extremities: no cyanosis and no clubbing Skin: normal turgor; no lesions Neurologic: Motor/Sensory: no tremor and no asterixis Psychiatric: Orientation: alert and oriented x 3 Results & Data Vital Signs (Past 12 Hours) Vital Signs Temp Pulse Pulse Resp BP Pulse Ox O2 Del Method 12/02/23 08:03 36.5 C 69 16 111/58 L 100 Nasal Cannula 12/02/23 07:42 69 12/02/23 03:30 36.9 C 52 L 16 90/43 L 97 Room Air 12/01/23 23:59 Nasal Cannula 12/01/23 23:18 36.6 C 62 16 94/47 L 99 Room Air O2 Flow Rate 12/02/23 08:03 1 12/02/23 07:42 12/02/23 03:30 12/01/23 23:59 1 12/01/23 23:18 Laboratory Results Laboratory Results - last 24 hr 12/01/23 12/01/23 12/01/23 08:49 14:44 16:54 Sodium Potassium Chloride Carbon Dioxide Anion Gap BUN Creatinine Est Cr Clr Drug Dosing Est GFR ( Amer) Est GFR (Non-Af Amer) BUN/Creatinine Ratio Glucose POC Glucose 154 H 189 H Calcium Magnesium Total Bilirubin Direct Bilirubin AST ALT Alkaline Phosphatase Total Protein Albumin Bld Cult ID Panel PCR PCR Panel Negative 12/01/23 12/02/23 12/02/23 20:12 03:09 08:11 Sodium 132 L Potassium 4.7 D Chloride 98 Carbon Dioxide 23 Anion Gap 11 BUN 33 H Creatinine 2.83 H D Est Cr Clr Drug Dosing 17.7 Est GFR ( Amer) 18.1 Est GFR (Non-Af Amer) 15.7 BUN/Creatinine Ratio 11.7 Glucose 191 H POC Glucose 235 H 188 H Calcium 9.3 Magnesium 2.4 Total Bilirubin 0.7 D Direct Bilirubin 0.3 H AST 271 H ALT 253 H Alkaline Phosphatase 250 H Total Protein 6.6 Albumin 3.3 L Bld Cult ID Panel PCR PG Care Time/CCT Total # of Minutes Spent Total Time Spent with Patient: Total time spent is greater than 50% in coordination of care (as documented) at patient's floor/unit and/or counseling patient: Coding Level of Care Code 11842 SUB INP/OBS CARE MIN Diagnoses ESRD (end stage renal disease) N18.6 Anemia D64.9 Right hip pain M25.551 Positive blood culture R78.81 Encephalopathy G93.40 Breast cancer C50.912 Breast location: unspecified site of breast Estrogen receptor status: unspecified Laterality: left Patient sex: female (6) Breast cancer Breast location: unspecified site of breast Estrogen receptor status: unspecified Laterality: left Patient sex: female Qualified Code(s): C50.912 - Malignant neoplasm of unspecified site of left female breast
[2023-12-02] MEDS: MICONAZOLE NITRATE POWDER 85 GM EXT SCH (13:09)
--- NOTE | 2023-12-02 13:40 | CT Scan Report ---
ABDOMEN AND PELVIS CT WITH ORAL CONTRAST CT DOSE: 1402.62 mGy.cm HISTORY: Acute right upper quadrant abdominal pain eval CBD for choledolcolithiasis TECHNIQUE: Multiaxial CT images of the abdomen and pelvis were performed following the use of oral co ntrast. A dose lowering technique was utilized adhering to the principles of ALARA. COMPARISON STUDY: 10/18/2023 FINDINGS: Limited exam secondary to upper extremities positioning, respiratory motion artifact and la ck of contrast. Spiculated irregularity left breast mass is redemonstrated. Skin thickening of the le ft breast subareolar tissues. Anasarca. Cardiomegaly with extensive coronary artery calcifications. S mall left and moderate right pleural effusions with dependent bibasilar consolidation. No free air. The unenhanced spleen, moderately atrophic pancreas and adrenal glands are unremarkable. Cholecystect emiliana. No biliary ductal dilation or choledocholithiasis identified by CT. Enlarged heterogeneous liver again noted. Trace abdominal pelvic ascites. Cortical thinning of the kidneys with diffuse vascular calcifications. 1.3 cm calcification within the left ureterovesicular junction. 4 mm nonobstructing c alculus of the superior pole right kidney with 10 mm nonobstructing calculus of the right kidney. 3 m m nonobstructing calculus within the left renal pelvis on image 159 series 3. Additional possible 3 m m calculus within the distal left ureter image 262. Decompressed or a bladder with Beach catheter in place. Fibroid uterus. Atherosclerosis of the aorta. Borderline enlarged retroperitoneal and iliac ch ain lymph nodes. No bowel obstruction or bowel wall thickening. Degenerative changes of the spine, pelvis and hips. De mineralized appearance of the bones with mixed lytic and blastic skeletal metastasis again noted. L1 and L2 compression deformities with kyphoplasty and paravertebral edema. L1 endplate irregularity is again seen. IMPRESSION: 1. Limited exam as above. 2. Cardiomegaly with small left and moderate right pleural effusions, pulmonary edema with bibasilar consolidation, anasarca and trace ascites. 3. There are two 3 mm left ureteral calculi with a 1.3 cm calculus in the distal left ureterovesicula r junction/dependent urinary bladder. No hydronephrosis. 4. Bilateral nephrolithiasis. 5. Multifocal osseous metastasis again noted with pathologic L1 and L2 compression deformities and ky phoplasty. There is progressive paravertebral edema at L1. 6. Diffusely heterogeneous appearance of the liver is again noted, possibly representing metastatic d isease. Attention at follow-up recommended. 7. Cholecystectomy without biliary ductal dilation identified. 8. Additional findings as above. ACT 112: Negative or not required by law. The above report was generated using voice recognition software. It may contain grammatical, syntax o r spelling errors. Electronically signed by: Timmy Coreas M.D. 12/02/2023 1:39 PM
--- NOTE | 2023-12-02 16:54 | Hospitalist Progress Note ---
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 Biopsy of the bone at that time did prove this was metastatic disease Patient reportedly sees [facility]. Has had admissions for hyperkalemia CT scan in September 2023 shows a 3 cm mass in her left breast. Patient most recently had CT scan abdomen pelvis to look for reasons for transaminitis. There is concerns for comment of possible metastatic liver disease and also confirms osseous metastasis of her breast cancer If transaminases continue to rise additional imaging may be undertaken to determine if there any confirmation to the metastatic disease which could be causing transaminitis without elevation of her bilirubin (3) Acute hip pain, bilateral: Plan: Acute bilateral hip pain-acute on chronic, pending x ray, consult [place] [facility] has outpt appt with them Acetaminophen 1000m tid scheduled Oxycodone 5 mg by mouth every 4 hours as needed for moderate pain Dilaudid 0.25 mg IV every 3 hours as needed for severe pain IR directed b/l intraarticular injections 11/30/23, severe pain afterward, did have mophine, causes confusion (4) Atrial fibrillation: Plan: Chronc and stable Typically rate controlled with metoprolol Elevated Troponin initially 198.7, with follow-up 178.5, Demand ischemia and associated renal disease impacting elevation do not suspect ACS HFimpEF chronic, Continue furosemide 40 mg p.o. twice daily, metoprolol succinate extended release 25 mg daily (5) Type 2 diabetes mellitus: Plan: basal bolus insulin and follow poc bsg (6) MCKENZIE (nonalcoholic steatohepatitis): Plan: chronic and stable (7) Hyponatremia: Plan: sodium is 131 hopeful to correct with dialysis (8) Encephalopathy: Plan: Patient with encephalopathy likely toxic from morphine. Evaluation for metabolic encephalopathy including blood cultures urine culture. Notation of elevation of LFTs which are minor with no corroborating changes on physical exam. Previous cholecystectomy. 1 of 2 blood culture showed positive for gram- positive organism started on daptomycin at this time awaiting further confirmation if only 1 may consider contaminant depending on its species Plan Heparin for DVT prevention full code PT/OT evaluation Admission and Anticipated Discharge Date Admission Date: November 29, 2023 Subjective No acute events overnight. Pauline was seen and evaluated with her partner (Adele) at the bedside. Pauline tolerated HD well yesterday no complications with treatment. She slept well last night. She is feeling more awake this AM. Mental status changes improved. She attributes confusion and lethargy to IV morphine. Pain control improved. She is resting more comfortably in bed. Appetite is fair. She denies fevers or chills. She denies abdominal pain but endorsed some mild discomfort. Nausea started post PO contrast for CT this AM. 1/2 blood cultures from 11/30 + GPC. Daptomycin started overnight. Physical Exam Physical Exam: cardiac exam is regular lungs remain diminished abd is soft and non tender, does not have ruq pain painful hips bilaterally with minimal movement Results & Data Results & Data Vital Signs (Past 12 Hours) Vital Signs Temp Pulse Pulse Resp BP Pulse Ox O2 Del Method 12/02/23 16:09 83 12/02/23 15:54 97.5 F L 65 20 84/46 L 97 Nasal Cannula 12/02/23 12:11 97.3 F L 83 18 102/52 L 100 Room Air 12/02/23 08:03 97.7 F 69 16 111/58 L 100 Nasal Cannula 12/02/23 08:00 Room Air 12/02/23 07:42 69 O2 Flow Rate 12/02/23 16:09 12/02/23 15:54 1 12/02/23 12:11 12/02/23 08:03 1 12/02/23 08:00 12/02/23 07:42 Laboratory Results reviewed cbc reviewed chemistry PG Care Time/CCT Total # of Minutes Spent Total Time Spent with Patient: Total time spent is greater than 50% in coordination of care (as documented) at patient's floor/unit and/or counseling patient: Coding Level of Care Code 33514 SUB INP/OBS CARE 3/50MIN Diagnoses ESRD needing dialysis N18.6; Z99.2 Breast cancer C50.912 Breast location: unspecified site of breast Estrogen receptor status: unspecified Laterality: left Patient sex: female Acute hip pain, bilateral M25.551; M25.552 Atrial fibrillation I48.91 Type 2 diabetes mellitus E11.9 MCKENZIE (nonalcoholic steatohepatitis) K75.81 Hyponatremia E87.1 Encephalopathy G93.40 (2) Breast cancer Breast location: unspecified site of breast Estrogen receptor status: unspecified Laterality: left Patient sex: female Qualified Code(s): C50.912 - Malignant neoplasm of unspecified site of left female breast
[2023-12-03 05:37] LABS: Hemoglobin 9.3 g/dl (12.0-16.0); Mean Corpuscular Hemoglobin 34.7 pg (25.0-34.0); Mean Corpuscular Hgb Conc 32.1 g/dL (32.0-36.0); Mean Corpuscular Volume 108.2 fL (80.0-100.0); Mean Platelet Volume 11.4 fL (9.4-12.4); Nucleated RBC # (auto) 0.17 K/uL (0.00-0.12); Nucleated RBC % (auto) 1.9 %; Platelet Count 165 K/uL (130-400); RDW Coefficient of Variation 17.5 % (11.5-14.5); RDW Standard Deviation 68.3 fL (36.4-46.3); Red Blood Count 2.68 M/uL (4.20-5.40); White Blood Count 9.16 K/ul (4.8-10.8)
[2023-12-03 05:53] LABS: Albumin Level 3.3 gm/dl (3.4-5.0); BUN Creatinine Ratio 12.8 (10-20); Bilirubin,Total 0.6 mg/dl (0.2-1.0); Calcium 9.3 mg/dl (8.6-10.3); Est GFR (African American) 12.6 ml/min; Est GFR (Non-African American) 10.9 ml/min; Globulin 3.2 gm/dl (2.5-4.0); Magnesium 2.4 mg/dl (1.7-2.4); Potassium 4.9 mmol/L (3.5-5.1); Total Protein 6.5 gm/dl (6.0-8.3)
--- NOTE | 2023-12-03 09:01 | Nephrology Progress Note ---
Date of Service December 03, 2023 Assessment & Plan (1) ESRD (end stage renal disease): Plan: * HD today. Orders have been entered into EMR and HD RN notified * Outpatient HD Rx: M&F [facility] 2.5hr, 2K 2Ca, F-180NR. EDW 90 kg. * Dialyzes via RIJ TDC. Catheter functioning well * Continue furosemide as Rx to encourage urine output * Renal diet and 1.2 daily fluid restriction. (2) Positive blood culture: Plan: * 1 blood cultures from 11/30 --> GPC. Daptomycin dosed for IHD. 12/01 culture - negative * 12/01/23 urine + for Enterococcus * TCC in place. Consider removal if persistent fever, leukocytosis or persistent + cultures (3) Anemia: Plan: * Outpatient Rx Venofer 100 mg IVP with HD and Micera 30 IVP q 2 weeks with HD. * TUNDE held with Hgb >11. (4) Right hip pain: Plan: * s/p steroid injection bilateral hip on 11/29 by CASSI (5) Breast cancer: Admission and Anticipated Discharge Date Admission Date: November 29, 2023 Subjective Miss Beyer was evaluated in her hopsital room this morning. She was awaiting HD. She denied fever. Her primary concern was R hip discomfort Review of Systems Constitutional: no fever Eyes: no problem reported Ear, Nose, Mouth, Throat: no problem reported Respiratory: no cough and no dyspnea Cardiovascular: no chest pain Gastrointestinal: no abdominal pain, no nausea, no vomiting and no diarrhea/loose stools Genitourinary: no dysuria Integumentary: no rash Physical Exam Constitutional: not in distress Eyes: PERRL, conjunctivae normal, anicteric sclerae ENMT: external ear and nose normal, oropharynx normal Neck: trachea midline, no thyromegaly IJ TCC w/ clean, dry dressing Respiratory: normal respiratory effort, lungs clear to auscultation Cardiovascular: RRR, no murmur, no edema Gastrointestinal (Abdomen): normal bowel sounds, soft, nontender, no hepatosplenomegaly Musculoskeletal: Extremities: no cyanosis Skin: no rashes, warm and dry Neurologic: Speech / Cognition: normal speech and normal cognition Results & Data Vital Signs (Past 12 Hours) Vital Signs Temp Pulse Pulse Resp BP BP Pulse Ox 12/03/23 07:33 36.4 C L 76 18 135/70 96 12/03/23 03:12 36.4 C L 82 16 101/65 97 12/02/23 23:45 51 L 12/02/23 23:31 36.3 C L 80 16 99/57 L 97 O2 Del Method O2 Flow Rate 12/03/23 07:33 Nasal Cannula 1 12/03/23 03:12 Nasal Cannula 1 12/02/23 23:45 12/02/23 23:31 Nasal Cannula 1 Laboratory Results Laboratory Results - last 24 hr 12/02/23 12/02/23 12/03/23 17:31 20:14 04:58 WBC 9.16 RBC 2.68 L Hgb 9.3 L Hct 29.0 L MCV 108.2 H MCH 34.7 H MCHC 32.1 RDW Std Deviation 68.3 H RDW Coeff of Amparo 17.5 H Plt Count 165 MPV 11.4 Absolute Nucleated RBC 0.17 H Nucleated RBC % (auto) 1.9 Sodium 128 L Potassium 4.9 Chloride 95 L Carbon Dioxide 21 Anion Gap 12 H BUN 49 H Creatinine 3.83 H D Est Cr Clr Drug Dosing 13.0 Est GFR ( Amer) 12.6 Est GFR (Non-Af Amer) 10.9 BUN/Creatinine Ratio 12.8 Glucose 187 H POC Glucose 193 H 207 H Calcium 9.3 Magnesium 2.4 Total Bilirubin 0.6 AST 181 H ALT 294 H Alkaline Phosphatase 233 H Total Creatine Kinase 22 L Total Protein 6.5 Albumin 3.3 L Globulin 3.2 Albumin/Globulin Ratio 1.0 12/03/23 08:10 WBC RBC Hgb Hct MCV MCH MCHC RDW Std Deviation RDW Coeff of Amparo Plt Count MPV Absolute Nucleated RBC Nucleated RBC % (auto) Sodium Potassium Chloride Carbon Dioxide Anion Gap BUN Creatinine Est Cr Clr Drug Dosing Est GFR ( Amer) Est GFR (Non-Af Amer) BUN/Creatinine Ratio Glucose POC Glucose 204 H Calcium Magnesium Total Bilirubin AST ALT Alkaline Phosphatase Total Creatine Kinase Total Protein Albumin Globulin Albumin/Globulin Ratio PG Care Time/CCT Total # of Minutes Spent Total Time Spent with Patient: Total time spent is greater than 50% in coordination of care (as documented) at patient's floor/unit and/or counseling patient: Coding Level of Care Code 62530 SUB INP/OBS CARE 3/50MIN Diagnoses ESRD (end stage renal disease) N18.6 Positive blood culture R78.81 Anemia D64.9 Right hip pain M25.551 Breast cancer C50.912 Breast location: unspecified site of breast Estrogen receptor status: unspecified Laterality: left Patient sex: female (5) Breast cancer Breast location: unspecified site of breast Estrogen receptor status: unspecified Laterality: left Patient sex: female Qualified Code(s): C50.912 - Malignant neoplasm of unspecified site of left female breast
--- NOTE | 2023-12-03 14:26 | Hospitalist Progress Note ---
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 PAtient would like to be discharged tomorrow. Concern however is the positive blood culture. awaiting to confirm contamination. (3) Breast cancer: Plan: Patient with metastatic breast cancer with a pathological fracture diagnosed in August 2023 status post kyphoplasty. Biopsy of the bone at that time did prove this was metastatic disease Patient reportedly sees [facility]. Has had admissions for hyperkalemia CT scan in September 2023 shows a 3 cm mass in her left breast. Patient most recently had CT scan abdomen pelvis to look for reasons for transaminitis. There is concerns for comment of possible metastatic liver disease and also confirms osseous metastasis of her breast cancer If transaminases continue to rise additional imaging may be undertaken to determine if there any confirmation to the metastatic disease which could be causing transaminitis without elevation of her bilirubin (4) Atrial fibrillation: Plan: Chronc and stable Typically rate controlled with metoprolol Elevated Troponin initially 198.7, with follow-up 178.5, Demand ischemia and associated renal disease impacting elevation do not suspect ACS HFimpEF chronic, Continue furosemide 40 mg p.o. twice daily, metoprolol succinate extended release 25 mg daily (5) Type 2 diabetes mellitus: Plan: basal bolus insulin and follow poc bsg (6) MCKENZIE (nonalcoholic steatohepatitis): Plan: chronic and stable (7) Hyponatremia: Plan: sodium is 131 hopeful to correct with dialysis (8) Encephalopathy: Plan: Patient with encephalopathy likely toxic from morphine. Evaluation for metabolic encephalopathy including blood cultures urine culture. Notation of elevation of LFTs which are minor with no corroborating changes on physical ex am. Previous cholecystectomy. 1 of 2 blood culture showed positive for gram- positive organism started on daptomycin at this time awaiting further confirmation if only 1 may consider contaminant depending on its species Plan Heparin for DVT prevention full code PT/OT evaluation Admission and Anticipated Discharge Date Admission Date: November 29, 2023 Subjective 73 yo female reports still having hip pain. Review of Systems Review of Systems: All systems reviewed & are unremarkable except as noted in HPI & below Physical Exam Physical Exam: cardiac exam is regular lungs remain diminished abd is soft and non tender, does not have ruq pain painful hips bilaterally with minimal movement Results & Data Results & Data Vital Signs (Past 12 Hours) Vital Signs Temp Pulse Pulse Pulse Resp BP BP 12/03/23 13:20 36.6 C 69 12/03/23 12:30 85 103/53 L 12/03/23 12:00 57 L 97/47 L 12/03/23 11:30 68 105/40 L 12/03/23 11:00 78 104/47 L 12/03/23 10:30 68 92/52 L 12/03/23 10:00 76 110/50 L 12/03/23 09:37 65 108/49 L 12/03/23 09:31 36.7 C 59 L 12/03/23 08:00 12/03/23 07:33 36.4 C L 76 18 12/03/23 03:12 36.4 C L 82 16 101/65 BP Pulse Ox O2 Del Method O2 Flow Rate 12/03/23 13:20 99/47 L 12/03/23 12:30 12/03/23 12:00 12/03/23 11:30 12/03/23 11:00 12/03/23 10:30 12/03/23 10:00 12/03/23 09:37 12/03/23 09:31 12/03/23 08:00 Room Air 12/03/23 07:33 135/70 96 Nasal Cannula 1 12/03/23 03:12 97 Nasal Cannula 1 PG Care Time/CCT Total # of Minutes Spent Total Time Spent with Patient: Total time spent is greater than 50% in coordination of care (as documented) at patient's floor/unit and/or counseling patient: Coding Level of Care Code 44657 SUB INP/OBS CARE 3/50MIN Diagnoses ESRD needing dialysis N18.6; Z99.2 Acute hip pain, bilateral M25.551; M25.552 Breast cancer C50.912 Breast location: unspecified site of breast Estrogen receptor status: unspecified Laterality: left Patient sex: female Atrial fibrillation I48.91 Type 2 diabetes mellitus E11.9 MCKENZIE (nonalcoholic steatohepatitis) K75.81 Hyponatremia E87.1 Encephalopathy G93.40 Time Spent (min) 50 (3) Breast cancer Breast location: unspecified site of breast Estrogen receptor status: unspecified Laterality: left Patient sex: female Qualified Code(s): C50.912 - Malignant neoplasm of unspecified site of left female breast
[2023-12-04 05:49] LABS: Hematocrit (blood only) 31.7 % (37.0-47.0); Hemoglobin 9.8 g/dl (12.0-16.0); Mean Corpuscular Hemoglobin 34.1 pg (25.0-34.0); Mean Corpuscular Hgb Conc 30.9 g/dL (32.0-36.0); Mean Corpuscular Volume 110.5 fL (80.0-100.0); Nucleated RBC # (auto) 0.23 K/uL (0.00-0.12); Nucleated RBC % (auto) 2.1 %; Platelet Count 162 K/uL (130-400); RDW Coefficient of Variation 17.8 % (11.5-14.5); RDW Standard Deviation 71.7 fL (36.4-46.3); Red Blood Count 2.87 M/uL (4.20-5.40); White Blood Count 10.94 K/ul (4.8-10.8)
[2023-12-04 05:50] LABS: Albumin Globulin Ratio 1.1 (0.9-2); Albumin Level 3.4 gm/dl (3.4-5.0); BUN Creatinine Ratio 11.7 (10-20); Bilirubin,Total 0.6 mg/dl (0.2-1.0); Calcium 9.2 mg/dl (8.6-10.3); Creatinine Clr Calc Pharmacy 17.2 ml/min; Est GFR (African American) 17.6 ml/min; Est GFR (Non-African American) 15.2 ml/min; Globulin 3.1 gm/dl (2.5-4.0); Magnesium 2.2 mg/dl (1.7-2.4); Total Protein 6.5 gm/dl (6.0-8.3)
--- NOTE | 2023-12-04 09:19 | Nephrology Progress Note ---
Date of Service December 04, 2023 Assessment & Plan (1) ESRD (end stage renal disease): Plan: * Volume status and electrolyte balance are acceptable. No acute indication for HD today * Outpatient HD Rx: M&F [facility] 2.5hr, 2K 2Ca, F-180NR. EDW 90 kg. Access remains R IJ TCC * Continue furosemide as Rx to encourage urine output * Renal diet and 1.2 daily fluid restriction * Will plan next HD for am. If discharge is anticipated, please have patient resume regular outpatient HD at [facility] (2) Positive blood culture: Plan: * 1/2 blood cultures from 11/30 --> [facility]. Daptomycin dosed for IHD. * 12/01 blood culture - negative * 12/01/23 urine + for Enterococcus * TCC in place. Patient remains afebrile, blood cultures are now negative. 11/30 culture likely contaminant. No acute indication for catheter exchange/removal at this time (3) Anemia: Plan: * Outpatient Rx Venofer 100 mg IVP with HD and Micera 30 IVP q 2 weeks with HD. * TUNDE held with Hgb >11. (4) Right hip pain: Plan: * s/p steroid injection bilateral hip on 11/29 by VIR (5) Breast cancer: Admission and Anticipated Discharge Date Admission Date: November 29, 2023 Subjective Miss Beyer was evaluated in her hopsital room this morning. She was sitting up in a chair and reports that her hip discomfort has improved. She is anxious to return home Review of Systems Constitutional: no fever Eyes: no problem reported Ear, Nose, Mouth, Throat: no problem reported Respiratory: no cough and no dyspnea Cardiovascular: no chest pain Gastrointestinal: no abdominal pain, no nausea, no vomiting and no diarrhea/loose stools Genitourinary: no dysuria Musculoskeletal: + joint pain and + stiffness; no radicul ar pain Integumentary: no rash Physical Exam Constitutional: not in distress Eyes: PERRL, conjunctivae normal, anicteric sclerae ENMT: external ear and nose normal, oropharynx normal Neck: trachea midline, no thyromegaly Respiratory: normal respiratory effort, lungs clear to auscultation Cardiovascular: RRR, no murmur, no edema Gastrointestinal (Abdomen): normal bowel sounds, soft, nontender, no hepatosplenomegaly Musculoskeletal: Extremities: no cyanosis Skin: no rashes, warm and dry Neurologic: Speech / Cognition: normal speech and normal cognition Results & Data Vital Signs (Past 12 Hours) Vital Signs Temp Pulse Resp BP Pulse Ox O2 Del Method O2 Flow Rate 12/04/23 07:51 36.5 C 84 18 92/53 L 98 Room Air 12/04/23 04:38 36.8 C 91 H 16 97/62 L 98 Nasal Cannula 1 12/03/23 22:32 36.7 C 91 H 16 106/60 98 Nasal Cannula 1 12/03/23 21:00 Room Air Laboratory Results Laboratory Results - last 24 hr 12/03/23 12/03/23 12/03/23 13:47 17:00 20:25 WBC RBC Hgb Hct MCV MCH MCHC RDW Std Deviation RDW Coeff of Amparo Plt Count MPV Absolute Nucleated RBC Nucleated RBC % (auto) Sodium Potassium Chloride Carbon Dioxide Anion Gap BUN Creatinine Est Cr Clr Drug Dosing Est GFR ( Amer) Est GFR (Non-Af Amer) BUN/Creatinine Ratio Glucose POC Glucose 147 H 149 H 217 H Calcium Magnesium Total Bilirubin AST ALT Alkaline Phosphatase Total Protein Albumin Globulin Albumin/Globulin Ratio 12/04/23 12/04/23 05:07 08:08 WBC 10.94 H RBC 2.87 L Hgb 9.8 L Hct 31.7 L MCV 110.5 H MCH 34.1 H MCHC 30.9 L RDW Std Deviation 71.7 H RDW Coeff of Amparo 17.8 H Plt Count 162 MPV 11.0 Absolute Nucleated RBC 0.23 H Nucleated RBC % (auto) 2.1 Sodium 133 L Potassium 4.0 Chloride 99 Carbon Dioxide 22 Anion Gap 12 H BUN 34 H Creatinine 2.90 H D Est Cr Clr Drug Dosing 17.2 Est GFR ( Amer) 17.6 Est GFR (Non-Af Amer) 15.2 BUN/Creatinine Ratio 11.7 Glucose 183 H POC Glucose 172 H Calcium 9.2 Magnesium 2.2 Total Bilirubin 0.6 AST 113 H ALT 259 H Alkaline Phosphatase 244 H Total Protein 6.5 Albumin 3.4 Globulin 3.1 Albumin/Globulin Ratio 1.1 PG Care Time/CCT Total # of Minutes Spent Total Time Spent with Patient: Total time spent is greater than 50% in coordination of care (as documented) at patient's floor/unit and/or counseling patient: Coding Level of Care Code 90342 SUB INP/OBS CARE MIN Diagnoses ESRD (end stage renal disease) N18.6 Positive blood culture R78.81 Anemia D64.9 Right hip pain M25.551 Breast cancer C50.912 Breast location: unspecified site of breast Estrogen receptor status: unspecified Laterality: left Patient sex: female (5) Breast cancer Breast location: unspecified site of breast Estrogen receptor status: unspecified Laterality: left Patient sex: female Qualified Code(s): C50.912 - Malignant neoplasm of unspecified site of left female breast
--- NOTE | 2023-12-04 14:20 | Discharge Summary ---
Date of Service December 04, 2023 Admission HPI Per Admitting Provider The patient is a 73-year-old female with a past medical history including ESRD on HD, bilateral hip pain, atrial fibrillation, CHF, MCKENZIE, GERD, hypertension, diabetes mellitus type 2, dyslipidemia, statin myopathy, CKD stage V on dialysis Tuesday and Tuesday, but still produces urine. She has had persistent bilateral hip pain over the past several months, but worsening over the past few weeks. She was to have a bilateral hip injection at [facility] on 11/28, however, her pain was so severe and her shortness of breath occurred due to inability to get to dialysis today, that she came to the emergency department for assessment this evening. Principal Diagnosis ESRD on dialysis Discharge Exam cardiac exam is regular lungs remain diminished abd is soft and non tender, does not have ruq pain painful hips bilaterally with minimal movement Discharge Data Allergies Allergy/AdvReac Type Severity Reaction Status Date / Time amoxicillin Allergy Severe LIPS Verified 11/29/23 01:02 SWELLED, "RED ALL OVER" doxycycline Allergy Severe LIPS Verified 11/29/23 01:02 SWELLED, "RED ALL OVER". cephalexin [From Keflex] Allergy Intermediate skin Verified 11/29/23 01:02 starts to peel off sulfamethoxazole Allergy Unknown CAN'T Verified 11/29/23 01:02 [From Bactrim] REMEMBER trimethoprim [From Bactrim] Allergy Unknown CAN'T Verified 11/29/23 01:02 REMEMBER atorvastatin AdvReac Intermediate Myalgia Verified 11/29/23 01:02 Consultations 11/29/23 01:41 ED Decision to Admit Stat 11/29/23 02:09 Consult Orthopedic Surgery Routine 11/29/23 02:55 Consult Nephrology Routine Ordered Studies 11/30/23 13:00 IR inj majr joint sh,hip,kn LT Urgent IR inj majr joint sh,hip,kn RT Urgent 12/02/23 08:10 CT Abd and Pelvis [CT abd pelvis oral con only] Routine Hospital Course (1) ESRD needing dialysis: missed outpt dialysis due to hip pain dialysed on admission 11/27 Hyperkalemia 11/30, with bradycardia, treated with d50,insulin and calcium, contacted renal for dialysis typically dialysis Tuesday and Tuesday, having missed Monday 11/27- Encephalopathy 11/30, concern for metabolic, check Ua, did have cholecystectomy, LFT increased, will have Ct abd/pelvis once stable stress steroids, could also be toxic encephalopathy from medications for pain 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 Positive blood culture likely a contamination. will discharge patient. (3) Breast cancer: Patient with metastatic breast cancer with a pathological fracture diagnosed in August 2023 status post kyphoplasty. Biopsy of the bone at that time did prove this was metastatic disease Patient reportedly sees [facility]. Has had admissions for hyperkalemia CT scan in September 2023 shows a 3 cm mass in her left breast. Patient most recently had CT scan abdomen pelvis to look for reasons for transaminitis. There is concerns for comment of possible metastatic liver disease and also confirms osseous metastasis of her breast cancer If transaminases continue to rise additional imaging may be undertaken to determine if there any confirmation to the metastatic disease which could be causing transaminitis without elevation of her bilirubin. will defer to outpatient oncology. (4) Atrial fibrillation: Chronc and stable Typically rate controlled with metoprolol Elevated Troponin initially 198.7, with follow-up 178.5, Demand ischemia and associated renal disease impacting elevation do not suspect ACS HFimpEF chronic, Continue furosemide 40 mg p.o. twice daily, metoprolol succinate extended release 25 mg daily (5) Type 2 diabetes mellitus: basal bolus insulin and follow poc bsg (6) MCKENZIE (nonalcoholic steatohepatitis): chronic and stable (7) Hyponatremia: sodium is 131 hopeful to correct with dialysis (8) Encephalopathy: Patient with encephalopathy likely toxic from morphine. Evaluation for metabolic encephalopathy including blood cultures urine culture. Notation of elevation of LFTs which are minor with no corroborating changes on physical exam. Previous cholecystectomy. 1 of 2 blood culture showed positive for gram- positive organism started on daptomycin at this time awaiting further co nfirmation if only 1 may consider contaminant depending on its species Total Time Total Time Spent Total Time Spent (In Minutes): 32 Discharge Plan Discharge Items Patient Disposition: Home - Self-Care Reason For Visit: INTRACTABLE HIP PAIN,ESRD NEEDING HD,HYPOXIA Discharge Diagnosis: intractable hip pain Activity: Resume your previous activity Non-emergency contact: Primary Care Provider Call non-emergency contact if: you have any medication questions Follow-up/Referrals: Pat Alejandre MD [Primary Care Provider] - 12/15/23 3:00 pm Diet: Carb Consistent or DM2 and Dialysis Renal Fluids: 1200ml (5 cups) Addtl Attending Provider Instructions: Recommend followup with your PCP in 1-2 weeks. Pending Studies at Discharge: No Stand-Alone Forms: My Retina Implant, Smoking Cessation Medications and DC Order Prescriptions: New acetaminophen 325 mg capsule 650 mg PO QID Qty: 120 0RF Continued omega-3 fatty acids 1,000 mg capsule 2,000 mg PO BID Qty: 360 3RF prednisone 10 mg tablet 10 mg PO DAILY Qty: 30 3RF tramadol 50 mg tablet 50 mg PO Q6H PRN (Reason: Pain) Qty: 60 1RF allopurinol 100 mg tablet 50 mg PO DAILY Qty: 45 3RF furosemide 40 mg tablet 40 mg PO BID Qty: 180 3RF insulin aspart U-100 [Novolog FlexPen U-100 Insulin] 100 unit/mL (3 mL) insulin pen See Rx Instructions SQ DIRECTED MDD 225 units Qty: 135 3RF Rx Instructions: Take with meals subcutaneously as directed; Carb ratio 1:2; Correction Factor 1:18 for BG > 200 metoprolol succinate 25 mg tablet extended release 24 hr 25 mg PO DAILY Qty: 90 3RF venlafaxine 75 mg capsule,extended release 24hr 75 mg PO DAILY Qty: 90 3RF (DME) pen needle, diabetic [BD Sheila 2nd Gen Pen Needle] 32 gauge x 5/32" needle See Rx Instructions .Route Qty: 600 3RF Rx Instructions: use up to 10 x daily for insulin injections lidocaine 5 % adhesive patch,medicated 1 patch topical DAILY Qty: 30 1RF Rx Instructions: leave on most painful area for up to 12 hrs oxycodone 5 mg tablet 5 mg PO Q4H PRN (Reason: pain) Qty: 30 0RF ondansetron HCl 4 mg tablet 4 mg PO Q4H PRN (Reason: nausea and vomiting) Qty: 30 0RF mirtazapine 7.5 mg tablet 7.5 mg PO HS Qty: 30 2RF insulin glargine [Lantus Solostar U-100 Insulin] 100 unit/mL (3 mL) insulin pen 10 unit SQ BID Discharge Orders: Discharge Order (Routine); Ordered 12/04/23 Ordered By: Arie Allen Admission Data Admit Date/Time: 11/29/23 02:09 Attending Provider: Arie Allen Admit Provider: Maco Quinonez Primary Care Provider: Pat Alejandre Other Providers: Mario Rod; Maco Quinonez; Shane Glass Other Interventions: Discharge Summary Assessment (RN) Last Done: 12/04/23 16:21 Coding Level of Care Code 09493 INP/OBS DISCH >30 MIN Diagnoses ESRD needing dialysis N18.6; Z99.2 Acute hip pain, bilateral M25.551; M25.552 Breast cancer C50.912 Breast location: unspecified site of breast Estrogen receptor status: unspecified Laterality: left Patient sex: female Atrial fibrillation I48.91 Type 2 diabetes mellitus E11.9 MCKENZIE (nonalcoholic steatohepatitis) K75.81 Hyponatremia E87.1 Encephalopathy G93.40
[2023-12-05] MEDS ORDERED: SODIUM CHLORIDE 0.9% 1,000 ML IV PRN (07:00)
[2023-12-05] MEDS ORDERED: HEPARIN SOD (PORCINE) 1000 UNIT/ML IV ONE (07:00)
[2023-12-05] MEDS ORDERED: EPOETIN ALFA 10,000 UNITS/ML VIAL IV ONE (07:00)
[2023-12-05] MEDS ORDERED: HEPARIN SOD (PORCINE) 1000 UNIT/ML IV SCH (07:00)
== END 2023-12-04 18:23 | disposition home or self-care (01) | DRG 553 ==
LOC: ED 22:54 → EDINP 11-29 02:09 → SUATTDRO 11-29 02:09 → 2W 11-29 02:56
DX: M84.58XD Pathological fracture in neoplastic disease, other specified site, subsequent encounter for fracture with routine healing; D64.9 Anemia, unspecified; Z88.1 Allergy status to other antibiotic agents; E11.22 Type 2 diabetes mellitus with diabetic chronic kidney disease; Z83.3 Family history of diabetes mellitus; T40.2X5A Adverse effect of other opioids, initial encounter; Y92.89 Other specified places as the place of occurrence of the external cause; I50.22 Chronic systolic (congestive) heart failure; Z99.2 Dependence on renal dialysis; Z88.2 Allergy status to sulfonamides; Y92.230 Patient room in hospital as the place of occurrence of the external cause; C79.51 Secondary malignant neoplasm of bone; C50.919 Malignant neoplasm of unspecified site of unspecified female breast; I13.2 Hypertensive heart and chronic kidney disease with heart failure and with stage 5 chronic kidney disease, or end stage renal disease; Z79.4 Long term (current) use of insulin; E78.5 Hyperlipidemia, unspecified; X58.XXXD Exposure to other specified factors, subsequent encounter; G92.8 Other toxic encephalopathy; M16.0 Bilateral primary osteoarthritis of hip; I48.91 Unspecified atrial fibrillation; E87.1 Hypo-osmolality and hyponatremia; K75.81 Nonalcoholic steatohepatitis (NASH); I24.89 Other forms of acute ischemic heart disease; N18.6 End stage renal disease; I48.20 Chronic atrial fibrillation, unspecified; E87.5 Hyperkalemia

== ENCOUNTER 2023-12-08 15:37 | Inpatient (IN) ==
--- NOTE | 2023-12-08 15:47 | ED Triage Note ---
Date of Service December 08, 2023 Provider in Triage Author: Jose G Stanford History of Present Illness This patient was briefly evaluated while in triage. An abbreviated physical exam was performed. This patient is a 73-year-old Female who presents to the ED for evaluation of excruciating back pain. Was recently admitted and had injections. Pain is in same location, just worse. Referred to ED by Dr. Alejandre. Physical Exam CONSTITUTIONAL: appears to be in pain, requesting pain medication. SKIN: pink, warm, dry Initial orders for labs and / or imaging were placed and patient was placed in the waiting area until a bed is available. Please see further documentation for the full ED course.
--- NOTE | 2023-12-08 17:02 | Emergency Department Note ---
Impression & Plan Low back pain, Compression fracture of T12 vertebra ED Provider Note NAME: ANGELA CEBALLOS AGE: 73 SEX: F : 1950 ARRIVES VIA: Walk-In INFORMANT: Patient, the patient's family members ED PROVIDER(S): Thomas Garcia DO CHIEF COMPLAINT: Back pain HPI: The patient is a 73-year-old female who presented to the emergency department for back pain. The patient had surgery with Dr. Adame at the end of 2022. The patient started having worsening pain especially over the course the last month. She recently had injections into her lower back because she is starting to have radicular symptoms. The patient has a history of renal failure. She been taking pain medication as an outpatient with only minimal relief of her symptoms. The patient presented to the emergency department today at the request of her primary care physician for evaluation of possible admission for pain control. The patient denies having any fever or trauma. She denies having any dysuria or frequency. She has been compliant with her outpatient dialysis. ROS: See above HPI for pertinent positives & negatives. A total of 10 systems reviewed and were otherwise negative. PAST MEDICAL HISTORY: See Below PAST SURGICAL HISTORY: See Below FAMILY HISTORY: See Below SOCIAL HISTORY: See Below HOME MEDICATIONS: See Below ALLERGIES: See Below VITALS: See Below PHYSICAL EXAMINATION: GENERAL: The patient is awake and alert. The patient is very anxious and appears in severe pain. EYES: The conjunctivae are clear. The pupils are round and reactive. EARS, NOSE, MOUTH AND THROAT: The nose is without any evidence of any deformity. NECK: The neck is nontender and supple. RESPIRATORY: Normal respiratory effort is noted there is no evidence of wheezing rhonchi or rales CARDIOVASCULAR: Regular rate and rhythm noted there no murmurs rubs or gallops normal S1 normal S2. GASTROINTESTINAL: The abdomen is soft. Abdomen is nontender. BACK: Significant lower lumbar pain was noted to palpation. Range of motion elicits severe pain MUSCULOSKELETAL/EXTREMITIES: There is no evidence of gross deformity full range of motion is noted in the hips and shoulders. SKIN: Skin is warm and dry. Trace pedal edema was noted bilaterally. NEUROLOGIC: Patient is awake alert and oriented x3 MEDICAL DECISION MAKING: The patient is a 73-year-old female who presented to the emergency department for an evaluation of back pain. The patient has a history of breast cancer. She has a history of compression fracture of the lumbar spine. She has had kyphoplasty in the past but returns to the emergency ferment today because of uncontrolled pain. The patient was treated with pain medication in the emergency department. She was reevaluated multiple times. The patient was in very severe pain and I do not feel that she would be a good candidate for outpatient management in any way. [facility] I discussed the patient's CAT scan reports with her daughters. It does appear that she has areas that could be consistent with metastatic disease as well as a new compression fracture. Triage Nursing notes reviewed. Prior medical records reviewed Vital Signs: reviewed and remarkable for no significant abnormalities Differential diagnosis: Musculoskeletal, disc herniation, fracture, metastatic disease, cord compression, discitis, sciatica, cauda equina, infection, aortic disease, renal colic, gastrointestinal, as well as other pathologies. ER treatment provided: See below Diagnostics interpreted by me: ECG: none Cardiac Monitoring: An order was placed for continuous cardiac monitoring. The monitor shows a rate of 81 bpm with sinus rhythm. Laboratory studies: As stated above and show below. Imaging studies: See below. Radiographic imaging was reviewed by myself Consultation(s): I discussed this case with Dr. Kohler who is on[facility]. 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 (09/13/23) Intractable back pain CKD (chronic kidney disease) stage V requiring chronic dialysis Elevated troponin Anemia Iron deficiency anemia (HFpEF) heart failure with preserved ejection fraction Mobitz type 1 second degree AV block Breast cancer diagnosed 2020 Statin myopathy Hyperuricemia Crystal arthropathy Candidal intertrigo Chronic stasis dermatitis Dyslipidemia Seborrheic dermatitis Type 2 diabetes mellitus HTN (hypertension) GERD (gastroesophageal reflux disease) MCKENZIE (nonalcoholic steatohepatitis) Surgical History History of tonsillectomy and adenoidectomy Hx of cholecystectomy History of appendectomy Humerus fracture surgical repair Family History Father Depression Diabetes Mother Hypertension Kidney stones Gallbladder disease Denies family history of Ovarian cancer Prostate cancer Myocardial infarction Breast cancer Colorectal cancer Social History Smoking Status: Never smoker Second Hand Exposure: No; Do You Dip or Chew Tobacco: No; Hx Alcohol Use: No Hx Substance Use: No Preferred Language: Albanian Communication Ability: Effective Visual Impairment: Limited Hearing Ability: Normal Cyber Engineer Required: No Beliefs That Will Affect Care: None marital status: Current Living Situation: Significant Other Current Living Situation Comment: lives at home with and caregiver 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 cephalexin [From Keflex] Allergy Intermediate skin Verified 12/08/23 19:52 starts to peel off sulfamethoxazole Allergy Unknown CAN'T Verified 12/08/23 19:52 [From Bactrim] REMEMBER trimethoprim [From Bactrim] Allergy Unknown CAN'T Verified 12/08/23 19:52 REMEMBER atorvastatin AdvReac Intermediate Myalgia Verified 12/08/23 19:52 Home Meds Home Medications Medication Instructions Recorded Confirmed insulin glargine 100 unit/mL (3 10 unit subcut BID 09/13/23 12/08/23 mL) subcutaneous pen (Lantus Solostar U-100 Insulin) acetaminophen 325 mg capsule 650 mg PO QID PRN Pain 12/08/23 12/08/23 cyanocobalamin (vitamin B-12) 1,000 mcg PO DAILY 12/08/23 12/08/23 1,000 mcg tablet (Vitamin B-12) lidocaine 5 % topical patch 1 patch topical DAILY PRN Pain 12/08/23 12/08/23 prednisone 10 mg tablet 5 mg PO DAILY 12/08/23 12/08/23 Previous Rx's Medication Instructions Recorded omega-3 fatty acids 1,000 mg 2,000 mg (2 x 1,000 mg) PO BID 07/19/22 capsule #360 caps allopurinol 100 mg tablet 50 mg (1/2 x 100 mg) PO DAILY #45 06/28/23 tabs furosemide 40 mg tablet 40 mg PO BID #180 tabs 06/28/23 insulin aspart U-100 100 unit/mL See Rx Instructions subcut 06/28/23 (3 mL) subcutaneous pen (Novolog DIRECTED #135 mL FlexPen U-100 Insulin aspart) metoprolol succinate 25 mg 25 mg PO DAILY #90 tabs 06/28/23 tablet,extended release 24 hr venlafaxine 75 mg capsule,extended 75 mg PO DAILY #90 caps 06/28/23 release 24 hr ondansetron HCl 4 mg tablet 4 mg PO Q4H PRN nausea and 10/05/23 vomiting #30 tabs oxycodone 5 mg tablet 5 mg PO Q4H PRN pain #30 tabs 10/05/23 tramadol 50 mg tablet 50 mg PO Q6H PRN Pain #60 tabs 11/25/23 Results & Data (ED) Vital Signs Vital Signs - 24 hr 12/08/23 15:40 12/08/23 18:06 12/08/23 19:03 Temperature 36.9 C Temperature Source Temporal Artery Scan Pulse Rate 81 Pulse Rate [Finger] 88 81 Pulse Rhythm Regular Pulse Rhythm [Finger] Regular Pulse Strength Normal Pulse Strength [Finger] Normal Respiratory Rate 20 16 18 Respiratory Effort / Characteristics Non-Labored Spontaneous Non-Labored Non-Labored Spontaneous Respiratory Depth Normal Normal Normal Respiratory Pattern Regular Blood Pressure 94/69 L Blood Pressure [Left Arm] 88/64 L 99/53 L Blood Pressure Mean 77 Blood Pressure Mean [Left Arm] 72 68 Pulse Oximetry 97 91 94 Oxygen Delivery Method Room Air Room Air Nasal Cannula Oxygen Flow Rate 2 Sepsis Recent Fever Within 48 Hours No Sepsis New/Unexplained Change in Mental Status N/A Sepsis Action Taken by Nursing No Action Required Home Medications Current Medication List: was personally reviewed by me Laboratory Data Attestation: I reviewed the patient's lab results. 12/08/23 17:05 12/08/23 18:32 Lab Results 12/08/23 12/08/23 Range/Units 17:05 18:32 WBC 14.23 H (4.8-10.8) K/ul RBC 3.02 L (4.20-5.40) M/uL Hgb 10.4 L (12.0-16.0) g/dl Hct 33.9 L (37.0-47.0) % MCV 112.3 H (80.0-100.0) fL MCH 34.4 H (25.0-34.0) pg MCHC 30.7 L (32.0-36.0) g/dL RDW Std Deviation 72.6 H (36.4-46.3) fL RDW Coeff of Amparo 17.7 H (11.5-14.5) % Plt Count 159 (130-400) K/uL MPV 10.9 (9.4-12.4) fL Immature Gran % (Auto) 0.9 % Neut % (Auto) 87.1 % Lymph % (Auto) 6.0 % Crook % (Auto) 5.4 % Eos % (Auto) 0.5 % Baso % (Auto) 0.1 % Neut # (Auto) 12.39 H (1.40-6.50) K/uL Lymph # (Auto) 0.85 L (1.20-3.40) K/uL Crook # (Auto) 0.77 H (0.11-0.59) K/uL Eos # (Auto) 0.07 (0.00-0.50) K/uL Baso # (Auto) 0.02 (0.00-0.20) K/uL Immature Gran # (Auto) 0.13 (0.01-0.20) K/uL Absolute Nucleated RBC 0.02 (0.00-0.12) K/uL Nucleated RBC % (auto) 0.1 % Macrocytosis Present Sodium 130 L (136-145) mmol/L Potassium TNP 4.8 Chloride 94 L (98-107) mmol/L Carbon Dioxide 22 (21-32) mmol/L Anion Gap 14 H (3-11) BUN 59 H (6-23) mg/dl Creatinine 4.87 H* (0.6-1.2) mg/dl Est Cr Clr Drug Dosing Not Reportable Est GFR ( Amer) 9.4 ml/min Est GFR (Non-Af Amer) 8.1 ml/min BUN/Creatinine Ratio 12.1 (10-20) Glucose 264 H (70-99(Fasting)) mg/dl Calcium 8.6 (8.6-10.3) mg/dl Total Bilirubin 0.7 (0.2-1.0) mg/dl AST TNP 28 ALT 94 H (7-52) U/L Alkaline Phosphatase 223 H (34-104) U/L Total Protein 6.9 (6.0-8.3) gm/dl Albumin 3.5 (3.4-5.0) gm/dl Globulin 3.4 (2.5-4.0) gm/dl Albumin/Globulin Ratio 1.0 (0.9-2) Administered Medications Hydromorphone HCl (Hydromorphone Inj 0.5 Mg/0.5 Ml Syr) 0.5 mg IV Q15M PRN PRN Reason: Pain Stop: 12/22/23 16:41 Last Admin: 12/08/23 18:05 Dose: 0.5 mg Documented By: Admin: 12/08/23 17:12 Dose: 0.5 mg Documented By: YANETH Discontinued Medications Ondansetron HCl (Ondansetron Inj 2 Mg/Ml 2 Ml Vial) 4 mg IV NOW STA Stop: 12/08/23 16:43 Last Admin: 12/08/23 17:12 Dose: 4 mg Documented By: YANETH Imaging Data My Impression: CT of the abdomen and pelvis was obtained in the emergency department. My interpretation is no free air or signs of bowel obstruction, final report below. Radiologist's Impression: Lumbar Spine CT 12/08/23 16:42 CT OF THE LUMBAR SPINE CLINICAL HISTORY: Back pain. Breast cancer. COMPARISON STUDY: Lumbar spine CT September 13, 2023. Lumbar spine MRI October 18, 2023. TECHNIQUE: Helical axial images of the lumbar spine were obtained. Sagittal and coronal reconstructions were viewed. Automated exposure control was utilized for the study. A dose lowering technique was utilized adhering to the principles of ALARA. FINDINGS: Please note that the abdomen and pelvis CT will be reported separately. For purposes of numbering on this exam, the L5-S1 disc space is assigned to axial image 151 of 198. Alignment of the lumbar spine is anatomic. L1 and L2 kyphoplasty for pathologic fractures is again noted. The postprocedural appearance is similar to abdominal CT of December 02, 2023. Progressive lytic appearance of the T12 vertebral body is noted. This suggests additional metastases. No associated pathologic fracture would be difficult to exclude. No vertebral body height loss at this level is noted. An additional L4 vertebral body metastasis is unchanged. A lytic focus within L5 is unchanged. There is moderate multilevel facet arthrosis and moderate to severe multilevel disc space narrowing within the lumbar spine. Central canal and neural foramen are suboptimally assessed given CT technique. IMPRESSION: 1. Multiple skeletal lesions within the lower thoracic and lumbar spine consistent with metastases. Pathologic fracture at the T12 level would be difficult to exclude. No vertebral body height loss. 2. Status post L1 and L2 kyphoplasty. Stable postprocedural appearance. 3. Moderate to severe multilevel degenerative changes within the lumbar spine. Suboptimal evaluation of central canal and neural foramen given CT technique. ACT 112: Negative or not required by law. Electronically signed by: Bob Alejandre M.D. 12/08/2023 6:35 PM Abdomen/Pelvis CT 12/08/23 17:00 CT OF THE ABDOMEN AND PELVIS WITHOUT CONTRAST CLINICAL HISTORY: Back pain. Breast cancer. COMPARISON STUDY: CT of the abdomen and pelvis December 02, 2023. TECHNIQUE: Axial images of the abdomen and pelvis were obtained without IV contrast. Images were reviewed in the axial, sagittal, and coronal planes. Automated exposure control was utilized for the study. A dose lowering technique was utilized adhering to the principles of ALARA. FINDINGS: Moderate right and small left pleural effusions are unchanged since CT of December 02, 2023. Heart is moderately enlarged. A left breast density may reflect the primary lesion. Mild pulmonary edema within the lower lungs is again noted. Evaluation of the abdomen and pelvis is suboptimal on this unenhanced exam. There is oral contrast throughout portions of the colon and rectum from prior CT. Heterogeneity with nodularity of the liver surface is again noted. This is similar to prior CT. Spleen, adrenal glands and pancreas are unremarkable. There is extensive vascular calcification. Bilateral renal calculi are present. There is no hydronephrosis. Several left ureterovesical junction calculi measure up to 7 mm. These are similar to prior exam. There is no upstream dilatation. Mildly enlarged retroperitoneal lymph nodes are unchanged. No evidence for a bowel obstruction. No new sites of lymphadenopathy are identified. Previous kyphoplasty at the L1 and L2 levels is noted with underlying pathologic fractures, similar appearance to prior CT. Additional lytic lesions within the lumbar spine are noted. In addition, there is a lytic lesion within T12 with cortical disruption. Findings are better depicted on the lumbar spine CT which will be reported separately. IMPRESSION: 1. No bowel obstruction. 2. No significant change since prior CT. Cardiomegaly with moderate right and small left pleural effusions and mild edema. 3. Several left ureterovesical junction calculi, similar to prior exam. No hydronephrosis. Bilateral nephrolithiasis. 4. Multiple osseous metastases with pathologic L1 and L2 fractures status post kyphoplasty. Additional lesions within the lower thoracic and lumbar spine. 5. Heterogeneity of the liver with nodularity liver surface, similar to prior exam. This remains nonspecific and could reflect cirrhosis or metastatic disease. ACT 112: Negative or not required by law. Electronically signed by: Bob Alejandre M.D. 12/08/2023 6:23 PM Discharge Plan Visit Data Chief Complaint: Back Injury/Pain Stated Complaint: SEVERE BACK PAIN, HIP PAIN ED Provider: Thomas Garcia Discharge Problem: Low back pain, Compression fracture of T12 vertebra Patient Disposition: Being Evaluated by Hospitalist Forms Stand Alone Forms: My [facility]! Prescriptions Prescriptions: No Action omega-3 fatty acids 1,000 mg capsule 2,000 mg PO BID Qty: 360 3RF tramadol 50 mg tablet 50 mg PO Q6H PRN (Reason: Pain) Qty: 60 1RF allopurinol 100 mg tablet 50 mg PO DAILY Qty: 45 3RF furosemide 40 mg tablet 40 mg PO BID Qty: 180 3RF insulin aspart U-100 [Novolog FlexPen U-100 Insulin] 100 unit/mL (3 mL) insulin pen See Rx Instructions SQ DIRECTED MDD 225 units Qty: 135 3RF Rx Instructions: Take with meals subcutaneously as directed; Carb ratio 1:2; Correction Factor 1:18 for BG > 200 metoprolol succinate 25 mg tablet extended release 24 hr 25 mg PO DAILY Qty: 90 3RF venlafaxine 75 mg capsule,extended release 24hr 75 mg PO DAILY Qty: 90 3RF oxycodone 5 mg tablet 5 mg PO Q4H PRN (Reason: pain) Qty: 30 0RF ondansetron HCl 4 mg tablet 4 mg PO Q4H PRN (Reason: nausea and vomiting) Qty: 30 0RF insulin glargine [Lantus Solostar U-100 Insulin] 100 unit/mL (3 mL) insulin pen 10 unit SQ BID cyanocobalamin (vitamin B-12) [Vitamin B-12] 1,000 mcg Tablet 1,000 mcg PO DAILY prednisone 10 mg tablet 5 mg PO DAILY lidocaine 5 % adhesive patch,medicated 1 patch topical DAILY PRN (Reason: Pain) Rx Instructions: leave on most painful area for up to 12 hrs acetaminophen 325 mg capsule 650 mg PO QID PRN (Reason: Pain) Referrals Referrals: Pat Alejandre MD [Primary Care Provider] - Discharge Problem: Low back pain Qualifiers: Chronicity: unspecified Back pain laterality: unspecified Sciatica presence: u nspecified whether sciatica present Qualified Code(s): M54.50 - Low back pain, unspecified Compression fracture of T12 vertebra Qualifiers: Encounter type: initial encounter Qualified Code(s): S22.080A - Wedge compression fracture of T11-T12 vertebra, initial encounter for closed fracture
[2023-12-08] MEDS: ONDANSETRON INJ 2 MG/ML 2 ML VIAL IV STA (17:12)
[2023-12-08] MEDS: HYDROmorphone INJ 0.5 MG/0.5 ML SYR IV PRN (17:12)
[2023-12-08 17:35] LABS: Basophils # (auto) 0.02 K/uL (0.00-0.20); Basophils % (auto) 0.1 %; Eosinophils # (auto) 0.07 K/uL (0.00-0.50); Eosinophils % (auto) 0.5 %; Hematocrit (blood only) 33.9 % (37.0-47.0); Hemoglobin 10.4 g/dl (12.0-16.0); Immature Granulocytes # (auto) 0.13 K/uL (0.01-0.20); Immature Granulocytes % (auto) 0.9 %; Lymphocytes # (auto) 0.85 K/uL (1.20-3.40); Mean Corpuscular Hemoglobin 34.4 pg (25.0-34.0); Mean Corpuscular Hgb Conc 30.7 g/dL (32.0-36.0); Mean Corpuscular Volume 112.3 fL (80.0-100.0); Mean Platelet Volume 10.9 fL (9.4-12.4); Monocytes # (auto) 0.77 K/uL (0.11-0.59); Monocytes % (auto) 5.4 %; Neutrophils # (auto) 12.39 K/uL (1.40-6.50); Neutrophils % (auto) 87.1 %; Nucleated RBC # (auto) 0.02 K/uL (0.00-0.12); Nucleated RBC % (auto) 0.1 %; Platelet Count 159 K/uL (130-400); RDW Coefficient of Variation 17.7 % (11.5-14.5); RDW Standard Deviation 72.6 fL (36.4-46.3); Red Blood Count 3.02 M/uL (4.20-5.40); White Blood Count 14.23 K/ul (4.8-10.8)
[2023-12-08 17:56] LABS: Macrocytosis Present
[2023-12-08 18:01] LABS: Est GFR (African American) 9.4 ml/min; Est GFR (Non-African American) 8.1 ml/min
[2023-12-08 18:03] LABS: Alanine Aminotransferase 94 U/L (7-52); Albumin Level 3.5 gm/dl (3.4-5.0); Alkaline Phosphatase 223 U/L (34-104); Anion Gap 14 (3-11); BUN Creatinine Ratio 12.1 (10-20); Bilirubin,Total 0.7 mg/dl (0.2-1.0); Blood Urea Nitrogen 59 mg/dl (6-23); Calcium 8.6 mg/dl (8.6-10.3); Carbon Dioxide 22 mmol/L (21-32); Chloride 94 mmol/L (98-107); Globulin 3.4 gm/dl (2.5-4.0); Glucose 264 mg/dl (70-99(Fasting)); Sodium 130 mmol/L (136-145); Total Protein 6.9 gm/dl (6.0-8.3)
--- NOTE | 2023-12-08 18:25 | CT Scan Report ---
CT OF THE ABDOMEN AND PELVIS WITHOUT CONTRAST CLINICAL HISTORY: Back pain. Breast cancer. COMPARISON STUDY: CT of the abdomen and pelvis December 02, 2023. TECHNIQUE: Axial images of the abdomen and pelvis were obtained without IV contrast. Images were revi ewed in the axial, sagittal, and coronal planes. Automated exposure control was utilized for the bishop dy. A dose lowering technique was utilized adhering to the principles of ALARA. FINDINGS: Moderate right and small left pleural effusions are unchanged since CT of December 02, 2023. He art is moderately enlarged. A left breast density may reflect the primary lesion. Mild pulmonary adia a within the lower lungs is again noted. Evaluation of the abdomen and pelvis is suboptimal on this u nenhanced exam. There is oral contrast throughout portions of the colon and rectum from prior CT. Het erogeneity with nodularity of the liver surface is again noted. This is similar to prior CT. Spleen, adrenal glands and pancreas are unremarkable. There is extensive vascular calcification. Bilateral re nal calculi are present. There is no hydronephrosis. Several left ureterovesical junction calculi aaron sure up to 7 mm. These are similar to prior exam. There is no upstream dilatation. Mildly enlarged re troperitoneal lymph nodes are unchanged. No evidence for a bowel obstruction. No new sites of lymphad enopathy are identified. Previous kyphoplasty at the L1 and L2 levels is noted with underlying pathol ogic fractures, similar appearance to prior CT. Additional lytic lesions within the lumbar spine are noted. In addition, there is a lytic lesion within T12 with cortical disruption. Findings are better depicted on the lumbar spine CT which will be reported separately. IMPRESSION: 1. No bowel obstruction. 2. No significant change since prior CT. Cardiomegaly with moderate right and small left pleural effu sions and mild edema. 3. Several left ureterovesical junction calculi, similar to prior exam. No hydronephrosis. Bilateral nephrolithiasis. 4. Multiple osseous metastases with pathologic L1 and L2 fractures status post kyphoplasty. Additiona l lesions within the lower thoracic and lumbar spine. 5. Heterogeneity of the liver with nodularity liver surface, similar to prior exam. This remains nons pecific and could reflect cirrhosis or metastatic disease. ACT 112: Negative or not required by law. Electronically signed by: Bob Alejandre M.D. 12/08/2023 6:23 PM
--- NOTE | 2023-12-08 18:37 | CT Scan Report ---
CT OF THE LUMBAR SPINE CLINICAL HISTORY: Back pain. Breast cancer. COMPARISON STUDY: Lumbar spine CT September 13, 2023. Lumbar spine MRI October 18, 2023. TECHNIQUE: Helical axial images of the lumbar spine were obtained. Sagittal and coronal reconstruct ions were viewed. Automated exposure control was utilized for the study. A dose lowering technique was utilized adhering to the principles of ALARA. FINDINGS: Please note that the abdomen and pelvis CT will be reported separately. For purposes of num bering on this exam, the L5-S1 disc space is assigned to axial image 151 of 198. Alignment of the lum bar spine is anatomic. L1 and L2 kyphoplasty for pathologic fractures is again noted. The postprocedu ral appearance is similar to abdominal CT of December 02, 2023. Progressive lytic appearance of the T12 v ertebral body is noted. This suggests additional metastases. No associated pathologic fracture would be difficult to exclude. No vertebral body height loss at this level is noted. An additional L4 verte bral body metastasis is unchanged. A lytic focus within L5 is unchanged. There is moderate multilevel facet arthrosis and moderate to severe multilevel disc space narrowing within the lumbar spine. Cent ral canal and neural foramen are suboptimally assessed given CT technique. IMPRESSION: 1. Multiple skeletal lesions within the lower thoracic and lumbar spine consistent with metastases. P athologic fracture at the T12 level would be difficult to exclude. No vertebral body height loss. 2. Status post L1 and L2 kyphoplasty. Stable postprocedural appearance. 3. Moderate to severe multilevel degenerative changes within the lumbar spine. Suboptimal evaluation of central canal and neural foramen given CT technique. ACT 112: Negative or not required by law. Electronically signed by: Bob Alejandre M.D. 12/08/2023 6:35 PM
--- NOTE | 2023-12-08 18:58 | History & Physical Report ---
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 - Caution with opioid use given ESRD and hypotension- Plan for pain regimen with Tramadol q6h prn 4-6, Dilaudid 0.25 q3H prn 7-10 - Consult ortho spine (2) Acute hip pain, bilateral: Plan: - acute worsening since admission last week - concern on imaging for worsening metastatic lesions to spine - Pain Regimen as per above - firm swelling lateral hip: will get CT Right hip (3) ESRD needing dialysis: Plan: - HD on Tuesday and Tuesday - still makes urine - Moderate right and small left pleural effusion with mild edema noted on CT; currently stable on imaging last admission - K= 4.8 - No indication for emergent dialysis; consult nephrology for HD tomorrow (4) Sacral ulcer: Plan: - consult wound care - pt refused exam of wound this evening (5) Atrial fibrillation: Plan: - continue metoprolol (6) Heart failure: Plan: - continue furosemide 40mg BID, metoprolol (7) Type 2 diabetes mellitus: Plan: - continue Lantus 10 units BID with SSI coverage (8) Hyponatremia: Plan: - Na= 130; baseline over last few visits in low 130s - Poor PO intake per pt since d/c - continue to trend (9) Transaminitis: Plan: - history of MCKENZIE; CT A&P with heterogenous liver with nodule surface; cirrhosis vs metastatic disease - downtrending from prior hospitalization (10) Breast cancer: Plan: - dx 2020; now metastatic to lung - follows with [facility] [place]; injections in [place] - on fulvestrant monthly; was due for injection 12/06-> rescheduled to 12/13 - started on 10mg prednisone for hypercalcemia; plan to continue (11) Leukocytosis: Plan: - mild leukocytosis= 14; no signs of acute infection - on prednisone for hypercalcemia in the setting of breast cancer (12) Pleural effusion: Plan: - pleural effusion again noted on imaging; largely unchanged from prior - hypervolemia vs malignant effusion; could consider thoracentesis for diagnostic purposes depending on goals of care Plan Diet: Renal, DM2, heart healthy VTE prophylaxis: Heparin q12 Code: Full History of Present Illness Primary Care Provider: Pat Alejandre MD 73 year old female with a past medical history of breast cancer, DM2, ESRD on HD, MCKENZIE, atrial fibrillation, CHF, GERD presenting with worsening of B/L hip pain and trouble ambulating. Was admitted from 11/27 to 12/03 after missed HD session and ongoing acute on chronic B/L hip pain. Had IR directed b/l intraarticular injections 11/30/23 and states that she did not have any improvement in pain. Since she has been home pain has gotten worse and her mobility has been significantly limited. Having trouble pivoting from chair to commode, issues getting out of the house to go to dialysis; has not missed any sessions. She has a history of breast cancer with bony metastasis. History of L1/L2 pathologic fractures s/p kyphoplasty end of [address] Adame. Denies fever, chills, chest pain, dyspnea, nausea/vomiting, bowel/bladder incontinence, saddle anesthesia. Allergies Allergy/AdvReac Type Severity Reaction Status Date / Time amoxicillin Allergy Severe LIPS Verified 12/08/23 19:52 SWELLED, "RED ALL OVER" doxycycline Allergy Severe LIPS Verified 12/08/23 19:52 SWELLED, "RED ALL OVER". cephalexin [From Keflex] Allergy Intermediate skin Verified 12/08/23 19:52 starts to peel off sulfamethoxazole Allergy Unknown CAN'T Verified 12/08/23 19:52 [From Bactrim] REMEMBER trimethoprim [From Bactrim] Allergy Unknown CAN'T Verified 12/08/23 19:52 REMEMBER atorvastatin AdvReac Intermediate Myalgia Verified 12/08/23 19:52 Home Medications Medication Instructions Recorded Confirmed Type omega-3 fatty acids 1,000 mg 2,000 mg (2 x 1,000 mg) PO BID 07/19/22 12/08/23 Rx capsule #360 caps allopurinol 100 mg tablet 50 mg (1/2 x 100 mg) PO DAILY #45 06/28/23 12/08/23 Rx tabs furosemide 40 mg tablet 40 mg PO BID #180 tabs 06/28/23 12/08/23 Rx insulin aspart U-100 100 unit/mL See Rx Instructions subcut 06/28/23 12/08/23 Rx (3 mL) subcutaneous pen (Novolog DIRECTED #135 mL FlexPen U-100 Insulin aspart) metoprolol succinate 25 mg 25 mg PO DAILY #90 tabs 06/28/23 12/08/23 Rx tablet,extended release 24 hr venlafaxine 75 mg capsule,extended 75 mg PO DAILY #90 caps 06/28/23 12/08/23 Rx release 24 hr insulin glargine 100 unit/mL (3 10 unit subcut BID 09/13/23 12/08/23 History mL) subcutaneous pen (Lantus Solostar U-100 Insulin) ondansetron HCl 4 mg tablet 4 mg PO Q4H PRN nausea and 10/05/23 12/08/23 Rx vomiting #30 tabs oxycodone 5 mg tablet 5 mg PO Q4H PRN pain #30 tabs 10/05/23 12/08/23 Rx tramadol 50 mg tablet 50 mg PO Q6H PRN Pain #60 tabs 11/25/23 12/08/23 Rx acetaminophen 325 mg capsule 650 mg PO QID PRN Pain 12/08/23 12/08/23 History cyanocobalamin (vitamin B-12) 1,000 mcg PO DAILY 12/08/23 12/08/23 History 1,000 mcg tablet (Vitamin B-12) lidocaine 5 % topical patch 1 patch topical DAILY PRN Pain 12/08/23 12/08/23 History prednisone 10 mg tablet 5 mg PO DAILY 12/08/23 12/08/23 History 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 (09/13/23) Intractable back pain CKD (chronic kidney disease) stage V requiring chronic dialysis Elevated troponin Anemia Iron deficiency anemia (HFpEF) heart failure with preserved ejection fraction Mobitz type 1 second degree AV block Breast cancer diagnosed 2020 Statin myopathy Hyperuricemia Crystal arthropathy Candidal intertrigo Chronic stasis dermatitis Dyslipidemia Seborrheic dermatitis Type 2 diabetes mellitus HTN (hypertension) GERD (gastroesophageal reflux disease) MCKENZIE (nonalcoholic steatohepatitis) Surgical History History of tonsillectomy and adenoidectomy Hx of cholecystectomy History of appendectomy Humerus fracture surgical repair Family History Father Depression Diabetes Mother Hypertension Kidney stones Gallbladder disease Denies family history of Ovarian cancer Prostate cancer Myocardial infarction Breast cancer Colorectal cancer Social History Smoking Status: Never smoker Second Hand Exposure: No; Do You Dip or Chew Tobacco: No; Hx Alcohol Use: No Hx Substance Use: No Preferred Language: Sinhala Communication Ability: Effective Visual Impairment: Limited Hearing Ability: Normal Greens Keeper Required: No Beliefs That Will Affect Care: None marital status: Current Living Situation: Significant Other Current Living Situation Comment: lives at home with and caregiver 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 Feels Safe at Home: Yes Childhood Exposure to Second-Hand Smoke: No Diet: regular Dental Care, Regularly: Yes Physical Activity Frequency: Does not Exercise Seatbelt Use: never Sunscreen Use: No Assistive Devices: Cane, Lift Chair, Scooter/Electric Scooter and Walker Review of Systems Review of Systems: As per above Physical Exam Physical Exam: Constitutional: well-appearing, no acute distress HEENT: NCAT, no conjunctival injection CV: regular rhythm, no murmur appreciated, extremities well-perfused, no LE edema Resp: CTABL, no wheezes/rales/rhonchi appreciated, no increased work of breathing GI: soft, nondistended, nontender, BS normoactive MSK: no gross deformities appreciated Skin: warm, dry, no rash appreciated Neuro: alert, oriented, no focal neurologic deficit appreciated. Strength 5/5 LE B/L. Firm area of swelling over lateral hip B/L Results & Data Results & Data Vital Signs (Past 12 Hours) Vital Signs Temp Pulse Pulse Resp BP BP Pulse Ox 12/08/23 18:06 88 16 88/64 L 91 12/08/23 15:40 36.9 C 81 20 94/69 L 97 O2 Del Method 12/08/23 18:06 Room Air 12/08/23 15:40 Room Air Supervising Physician Co-Signing Physician Notes Patient seen and examined, chart reviewed, case discussed with Dr. Burgos and I agree with the assessment and plan as documented above. In brief, patient is a 73yo female with multiple medical comorbidities to include breast cancer, DM, ESRD, MCKENZIE, AF presenting with right sided hip pain. Patient recently admitted to [facility] and had an intra-articular injection on 11/30/23. She did not have improvement in pain. Since being home she has had worsening pain in the right hip with difficulty ambulating and transferring. Patient's pain is mostly located in the right hip. She does not have any pain in her back or T12 area. Has not missed HD On exam she is resting in recliner chair, somnolent but arousable - answers questions and follows commands Skin- intact, no rash HEENT - MMM, Neck supple Heart - +S1/S2, regular Lungs - CTA Abd - soft, NT/ND Ext - area of firm induration present on bilateral hips as well as posterior knee and right calf. Tender to palpation. No discoloration Labs and images reviewed Assessment/Plan Severe right hip pain. Area of induration present on physical exam - tender to palpation. No fluctuance or drainage. ?edema, ?calcifications? -CT of the RLE ordered - patient does not wish to have this done today -Pain control with Tylenol, Tramadol, Dilaudid PRN -Continue home medications as above Resident Activity Tracking Resident Involvement: Resident Care Provided Care Provided: Adult Hospital Medicine (10) Breast cancer Breast location: unspecified site of breast Estrogen receptor status: unspecified Laterality: left Patient sex: female Qualified Code(s): C50.912 - Malignant neoplasm of unspecified site of left female breast
[2023-12-08 19:41] LABS: Potassium 4.8 mmol/L (3.5-5.1)
[2023-12-08] MEDS ORDERED: GLUCOSE 40% GEL 15 GM TUBE PO PRN (22:36)
[2023-12-08] MEDS ORDERED: GLUCOSE 10 TAB/TUBE PO PRN (22:36)
[2023-12-08] MEDS ORDERED: GLUCAGON FOR INJ 1 MG VIAL SQ PRN (22:36)
[2023-12-08] MEDS: FUROSEMIDE 40 MG TAB PO SCH (23:22)
[2023-12-08] MEDS: LANTUS PER UNIT CHARGE SQ SCH (23:42)
[2023-12-08] MEDS: INSULIN ASPART PER UNIT CHARGE SC SCH (23:43)
[2023-12-09] MEDS: ACETAMINOPHEN 500 MG TAB ONE (01:20)
--- NOTE | 2023-12-09 01:49 | Billing Data ---
Date of Service December 08, 2023 Coding Level of Care Code 36097 INT INP/OBS CARE
[2023-12-09] MEDS: ACETAMINOPHEN 500 MG TAB PO SCH ×2 (02:02→21:31)
[2023-12-09] MEDS: Patient's HEIGHT &/or WEIGHT Needed ONE (02:09)
[2023-12-09] MEDS: HYDROmorphone INJ 0.5 MG/0.5 ML SYR IV PRN (04:04)
[2023-12-09 07:23] LABS: Basophils # (auto) 0.04 K/uL (0.00-0.20); Basophils % (auto) 0.4 %; Eosinophils # (auto) 0.09 K/uL (0.00-0.50); Eosinophils % (auto) 0.8 %; Hematocrit (blood only) 32.6 % (37.0-47.0); Immature Granulocytes # (auto) 0.11 K/uL (0.01-0.20); Lymphocytes # (auto) 0.93 K/uL (1.20-3.40); Lymphocytes % (auto) 8.2 %; Mean Corpuscular Hemoglobin 34.2 pg (25.0-34.0); Mean Corpuscular Hgb Conc 30.7 g/dL (32.0-36.0); Mean Corpuscular Volume 111.6 fL (80.0-100.0); Mean Platelet Volume 10.8 fL (9.4-12.4); Monocytes # (auto) 0.79 K/uL (0.11-0.59); Neutrophils # (auto) 9.33 K/uL (1.40-6.50); Neutrophils % (auto) 82.6 %; Nucleated RBC # (auto) 0.02 K/uL (0.00-0.12); Nucleated RBC % (auto) 0.2 %; Platelet Count 152 K/uL (130-400); RDW Coefficient of Variation 17.3 % (11.5-14.5); RDW Standard Deviation 70.2 fL (36.4-46.3); Red Blood Count 2.92 M/uL (4.20-5.40); White Blood Count 11.29 K/ul (4.8-10.8)
[2023-12-09 07:47] LABS: Macrocytosis Present
[2023-12-09] MEDS: HEPARIN SOD 5,000 UNIT/0.5 ML VIAL SQ SCH (07:55)
[2023-12-09] MEDS: VENLAFAXINE HCL XR 75 MG CAPXR PO SCH (07:56)
[2023-12-09] MEDS: CYANOCOBALAMIN (B-12) 500 MCG TABLET PO SCH (07:56)
[2023-12-09] MEDS: predniSONE 5 MG TAB PO SCH (07:57)
[2023-12-09] MEDS: allopurinoL 100 MG TAB PO SCH (07:57)
[2023-12-09] MEDS: METOPROLOL SUCC 25MG EXT REL TAB PO SCH (07:57)
[2023-12-09 08:10] LABS: Albumin Globulin Ratio 1.3 (0.9-2); Albumin Level 3.5 gm/dl (3.4-5.0); BUN Creatinine Ratio 12.4 (10-20); Bilirubin,Total 0.7 mg/dl (0.2-1.0); Calcium 8.6 mg/dl (8.6-10.3); Creatinine Clr Calc Pharmacy 9.6 ml/min; Est GFR (African American) 9.1 ml/min; Est GFR (Non-African American) 7.9 ml/min; Globulin 2.8 gm/dl (2.5-4.0); Magnesium 2.4 mg/dl (1.7-2.4); Potassium 4.6 mmol/L (3.5-5.1); Total Protein 6.3 gm/dl (6.0-8.3)
[2023-12-09] MEDS ORDERED: SODIUM CHLORIDE 0.9% 1,000 ML IV PRN (09:18)
--- NOTE | 2023-12-09 09:18 | Nephrology Consultation ---
Date of Consultation December 09, 2023 Assessment & Plan (1) CKD (chronic kidney disease) stage V requiring chronic dialysis: * Will provide HD today according to outpatient orders. HD RN notified and orders placed in EMR * Outpatient HD Rx: [facility] M,F (2x/wk) 2.5hr, 400/800, 2K 2Ca, F-180NR, EDW 90 kg * Monitor PRP (2) Metastatic cancer to spine: * Consider consultation w/ Spine Surgery, pain management, Oncology, question whether to obtain input from Palliative Care History of Present Illness Reason for Consultation: ESKD-D Attending Physician: Cliff Fishman MD History of Present Illness Miss Beyer is a 73 year old white female who is seen at the request of [facility] Hospitalist Service to provide inpatient HD and assist w/ medical management. Information for the HPI is obtained from direct patient interview ans review of the EMR. HPI is summarized as follows: Miss Beyer's primary [place] [facility] is Dr. Glass. She has ESKD due to recurrent JEFFREY. She dialyzes M,F at [facility] (2.5hr, 400/800, 2K 2Ca, F-180NR, EDW 90 kg). Her dialysis access remains a R IJ TCC. Miss Beyer's medical history is significant for breast cancer with metastasis to bone including the lumbar spine, recurrent hypercalcemia, HFpEF, Mobitz type I second-degree AV block, dyslipidemia, AODM, HTN, GERD, and MCKENZIE. 09/17 Miss Beyer developed back pain. LS spine CT revealed fracture of L1 vertebral body with radiolucency concerning for lytic disease/pathologic fracture. Dr. Adame performed kyphoplasty but her back and hip pain have persisted. Miss Beyer was last hospitalized at [facility] 11/29/23-12/04/23 for urgent dialysis and management of hip pain. She missed her Tuesday dialysis tr eatment due to hip discomfort and presented to the EMD 11/28 with CHF requiring urgent HD. On 11/30/23 she underwent bilateral hip injections w/ cortisol by [facility]. Her hospital course was complicated by encephalopathy due to combination Gabapentin and narcotic analgesics. Since returning home, Miss Beyer reports that her back and hip pain have not been controlled. She has difficulty standing or making transfers. She is only comfortable while lying still on her back. 12/08/[address] now shows multiple osseous metastases w/ pathologic L1 and L2 fractures. Additional lesions are noted within the thoracic and lumbar spine. There is heterogeneity of the liver which may represent metastatic disease as well. Allergies Allergy/AdvReac Type Severity Reaction Status Date / Time amoxicillin Allergy Severe LIPS Verified 12/08/23 19:52 SWELLED, "RED ALL OVER" doxycycline Allergy Severe LIPS Verified 12/08/23 19:52 SWELLED, "RED ALL OVER". cephalexin [From Keflex] Allergy Intermediate skin Verified 12/08/23 19:52 starts to peel off sulfamethoxazole Allergy Unknown CAN'T Verified 12/08/23 19:52 [From Bactrim] REMEMBER trimethoprim [From Bactrim] Allergy Unknown CAN'T Verified 12/08/23 19:52 REMEMBER atorvastatin AdvReac Intermediate Myalgia Verified 12/08/23 19:52 Home Medications Medication Instructions Recorded Confirmed Type omega-3 fatty acids 1,000 mg 2,000 mg (2 x 1,000 mg) PO BID 07/19/22 12/08/23 Rx capsule #360 caps allopurinol 100 mg tablet 50 mg (1/2 x 100 mg) PO DAILY #45 06/28/23 12/08/23 Rx tabs furosemide 40 mg tablet 40 mg PO BID #180 tabs 06/28/23 12/08/23 Rx insulin aspart U-100 100 unit/mL See Rx Instructions subcut 06/28/23 12/08/23 Rx (3 mL) subcutaneous pen (Novolog DIRECTED #135 mL FlexPen U-100 Insulin aspart) metoprolol succinate 25 mg 25 mg PO DAILY #90 tabs 06/28/23 12/08/23 Rx tablet,extended release 24 hr venlafaxine 75 mg capsule,extended 75 mg PO DAILY #90 caps 06/28/23 12/08/23 Rx release 24 hr insulin glargine 100 unit/mL (3 10 unit subcut BID 09/13/23 12/08/23 History mL) subcutaneous pen (Lantus Solostar U-100 Insulin) ondansetron HCl 4 mg tablet 4 mg PO Q4H PRN nausea and 10/05/23 12/08/23 Rx vomiting #30 tabs oxycodone 5 mg tablet 5 mg PO Q4H PRN pain #30 tabs 10/05/23 12/08/23 Rx tramadol 50 mg tablet 50 mg PO Q6H PRN Pain #60 tabs 11/25/23 12/08/23 Rx acetaminophen 325 mg capsule 650 mg PO QID PRN Pain 12/08/23 12/08/23 History cyanocobalamin (vitamin B-12) 1,000 mcg PO DAILY 12/08/23 12/08/23 History 1,000 mcg tablet (Vitamin B-12) lidocaine 5 % topical patch 1 patch topical DAILY PRN Pain 12/08/23 12/08/23 History prednisone 10 mg tablet 5 mg PO DAILY 12/08/23 12/08/23 History Patient History Medical History 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 (09/13/23) Intractable back pain CKD (chronic kidney disease) stage V requiring chronic dialysis Elevated troponin Anemia Iron deficiency anemia (HFpEF) heart failure with preserved ejection fraction Mobitz type 1 second degree AV block Breast cancer diagnosed 2020 Statin myopathy Hyperuricemia Crystal arthropathy Candidal intertrigo Chronic stasis dermatitis Dyslipidemia Seborrheic dermatitis Type 2 diabetes mellitus HTN (hypertension) GERD (gastroesophageal reflux disease) MCKENZIE (nonalcoholic steatohepatitis) Surgical History History of tonsillectomy and adenoidectomy Hx of cholecystectomy History of appendectomy Humerus fracture surgical repair Family History Father Depression Diabetes Mother Hypertension Kidney stones Gallbladder disease Denies family history of Ovarian cancer Prostate cancer Myocardial infarction Breast cancer Colorectal cancer Social History Smoking Status: Never smoker Second Hand Exposure: No; Do You Dip or Chew Tobacco: No; Hx Alcohol Use: No Hx Substance Use: No Preferred Language: Mongolian Communication Ability: Effective Visual Impairment: Limited Hearing Ability: Normal Director Adult Required: No Beliefs That Will Affect Care: None marital status: Current Living Situation: Significant Other Current Living Situation Comment: lives at home with and caregiver 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 Feels Safe at Home: Yes Safety Concerns: Feels Safe At This Time Childhood Exposure to Second-Hand Smoke: No Diet: regular Dental Care, Regularly: Yes Physical Activity Frequency: Does not Exercise Seatbelt Use: never Sunscreen Use: No Assistive Devices: Cane, Glasses and Wheelchair Review of Systems Constitutional: no fever Eyes: no problem reported Ear, Nose, Mouth, Throat: no problem reported Respiratory: no cough and no dyspnea Cardiovascular: no chest pain Gastrointestinal: no abdominal pain, no nausea, no vomiting and no diarrhea/loose stools Integumentary: no rash Physical Exam Constitutional: + in distress (back discomfort) Eyes: PERRL, conjunctivae normal, anicteric sclerae ENMT: external ear and nose normal, oropharynx normal Neck: trachea midline, no thyromegaly R IJ TCC w/ clean dry dressing Respiratory: normal respiratory effort, lungs clear to auscultation Cardiovascular: RRR, no murmur, no edema Gastrointestinal (Abdomen): normal bowel sounds, soft, nontender, no hepatosplenomegaly Skin: no rashes, warm and dry Neurologic: Speech / Cognition: normal speech and normal cognition Psychiatric: Affect: + depressed affect Results & Data Vital Signs (Past 12 Hours) Vital Signs Temp Pulse Pulse Resp BP BP Pulse Ox 12/09/23 07:55 36.8 C 99 H 18 115/77 96 12/09/23 07:35 86 12/09/23 06:00 75 12 94 12/09/23 04:21 12/09/23 03:00 88 12 112/57 L 100 12/09/23 02:36 91 H 20 112/57 L 100 12/09/23 01:34 95/62 L 99 12/09/23 01:28 90 12/08/23 23:00 82 18 99/53 L 98 O2 Del Method O2 Flow Rate 12/09/23 07:55 Nasal Cannula 2 12/09/23 07:35 12/09/23 06:00 Room Air 12/09/23 04:21 Nasal Cannula 2 12/09/23 03:00 Nasal Cannula 2 12/09/23 02:36 Nasal Cannula 2 12/09/23 01:34 Nasal Cannula 1 12/09/23 01:28 12/08/23 23:00 Nasal Cannula 1 Laboratory Results Laboratory Results WBC 11.29 K/ul (4.8-10.8) H 12/09/23 06:53 RBC 2.92 M/uL (4.20-5.40) L 12/09/23 06:53 Hgb 10.0 g/dl (12.0-16.0) L 12/09/23 06:53 Hct 32.6 % (37.0-47.0) L 12/09/23 06:53 MCV 111.6 fL (80.0-100.0) H 12/09/23 06:53 MCH 34.2 pg (25.0-34.0) H 12/09/23 06:53 MCHC 30.7 g/dL (32.0-36.0) L 12/09/23 06:53 RDW Std Deviation 70.2 fL (36.4-46.3) H 12/09/23 06:53 RDW Coeff of Amparo 17.3 % (11.5-14.5) H 12/09/23 06:53 Plt Count 152 K/uL (130-400) 12/09/23 06:53 MPV 10.8 fL (9.4-12.4) 12/09/23 06:53 Immature Gran % (Auto) 1.0 % 12/09/23 06:53 Neut % (Auto) 82.6 % 12/09/23 06:53 Lymph % (Auto) 8.2 % 12/09/23 06:53 [place] % (Auto) 7.0 % 12/09/23 06:53 Eos % (Auto) 0.8 % 12/09/23 06:53 Baso % (Auto) 0.4 % 12/09/23 06:53 Neut # (Auto) 9.33 K/uL (1.40-6.50) H 12/09/23 06:53 Lymph # (Auto) 0.93 K/uL (1.20-3.40) L 12/09/23 06:53 [place] # (Auto) 0.79 K/uL (0.11-0.59) H 12/09/23 06:53 Eos # (Auto) 0.09 K/uL (0.00-0.50) 12/09/23 06:53 Baso # (Auto) 0.04 K/uL (0.00-0.20) 12/09/23 06:53 Immature Gran # (Auto) 0.11 K/uL (0.01-0.20) 12/09/23 06:53 Absolute Nucleated RBC 0.02 K/uL (0.00-0.12) 12/09/23 06:53 Nucleated RBC % (auto) 0.2 % 12/09/23 06:53 Macrocytosis Present 12/09/23 06:53 Sodium 132 mmol/L (136-145) L 12/09/23 06:53 Potassium 4.6 mmol/L (3.5-5.1) 12/09/23 06:53 Chloride 96 mmol/L (98-107) L 12/09/23 06:53 Carbon Dioxide 24 mmol/L (21-32) 12/09/23 06:53 Anion Gap 12 (3-11) H 12/09/23 06:53 BUN 62 mg/dl (6-23) H 12/09/23 06:53 Creatinine 5.00 mg/dl (0.6-1.2) H* 12/09/23 06:53 Est Cr Clr Drug Dosing 9.6 ml/min 12/09/23 06:53 Est GFR ( Amer) 9.1 ml/min 12/09/23 06:53 Est GFR (Non-Af Amer) 7.9 ml/min 12/09/23 06:53 BUN/Creatinine Ratio 12.4 (10-20) 12/09/23 06:53 Glucose 129 mg/dl (70-99(Fasting)) H 12/09/23 06:53 POC Glucose 135 mg/dl (70-99) H 12/09/23 07:58 Calcium 8.6 mg/dl (8.6-10.3) 12/09/23 06:53 Magnesium 2.4 mg/dl (1.7-2.4) 12/09/23 06:53 Total Bilirubin 0.7 mg/dl (0.2-1.0) 12/09/23 06:53 AST 16 U/L (13-39) 12/09/23 06:53 ALT 78 U/L (7-52) H 12/09/23 06:53 Alkaline Phosphatase 195 U/L (34-104) H 12/09/23 06:53 Total Protein 6.3 gm/dl (6.0-8.3) 12/09/23 06:53 Albumin 3.5 gm/dl (3.4-5.0) 12/09/23 06:53 Globulin 2.8 gm/dl (2.5-4.0) 12/09/23 06:53 Albumin/Globulin Ratio 1.3 (0.9-2) 12/09/23 06:[address] 12/08/23 16:42 CT OF THE LUMBAR SPINE CLINICAL HISTORY: Back pain. Breast cancer. COMPARISON STUDY: Lumbar spine CT September 13, 2023. Lumbar spine MRI October 18, 2023. TECHNIQUE: Helical axial images of the lumbar spine were obtained. Sagittal and coronal reconstructions were viewed. Automated exposure control was utilized for the study. A dose lowering technique was utilized adhering to the principles of ALARA. FINDINGS: Please note that the abdomen and pelvis CT will be reported separately. For purposes of numbering on this exam, the L5-S1 disc space is assigned to axial image 151 of 198. Alignment of the lumbar spine is anatomic. L1 and L2 kyphoplasty for pathologic fractures is again noted. The postprocedural appearance is similar to abdominal CT of December 02, 2023. Progressive lytic appearance of the T12 vertebral body is noted. This suggests additional metastases. No associated pathologic fracture would be difficult to exclude. No vertebral body height loss at this level is noted. An additional L4 vertebral body metastasis is unchanged. A lytic focus within L5 is unchanged. There is moderate multilevel facet arthrosis and moderate to severe multilevel disc space narrowing within the lumbar spine. Central canal and neural foramen a re suboptimally assessed given CT technique. IMPRESSION: 1. Multiple skeletal lesions within the lower thoracic and lumbar spine consistent with metastases. Pathologic fracture at the T12 level would be difficult to exclude. No vertebral body height loss. 2. Status post L1 and L2 kyphoplasty. Stable postprocedural appearance. 3. Moderate to severe multilevel degenerative changes within the lumbar spine. Suboptimal evaluation of central canal and neural foramen given CT technique. ACT 112: Negative or not required by law. Electronically signed by: Bob Alejandre M.D. 12/08/2023 6:35 PM Abdomen/Pelvis CT 12/08/23 17:00 CT OF THE ABDOMEN AND PELVIS WITHOUT CONTRAST CLINICAL HISTORY: Back pain. Breast cancer. COMPARISON STUDY: CT of the abdomen and pelvis December 02, 2023. TECHNIQUE: Axial images of the abdomen and pelvis were obtained without IV contrast. Images were reviewed in the axial, sagittal, and coronal planes. Automated exposure control was utilized for the study. A dose lowering technique was utilized adhering to the principles of ALARA. FINDINGS: Moderate right and small left pleural effusions are unchanged since CT of December 02, 2023. Heart is moderately enlarged. A left breast density may reflect the primary lesion. Mild pulmonary edema within the lower lungs is again noted. Evaluation of the abdomen and pelvis is suboptimal on this unenhanced exam. There is oral contrast throughout portions of the colon and rectum from prior CT. Heterogeneity with nodularity of the liver surface is again noted. This is similar to prior CT. Spleen, adrenal glands and pancreas are unremarkable. There is extensive vascular calcification. Bilateral renal calculi are present. There is no hydronephrosis. Several left ureterovesical junction calculi measure up to 7 mm. These are similar to prior exam. There is no upstream dilatation. Mildly enlarged retroperitoneal lymph nodes are unchanged. No evidence for a bowel obstruction. No new sites of lymphadenopathy are identified. Previous kyphoplasty at the L1 and L2 levels is noted with underlying pathologic fractures, similar appearance to prior CT. Additional lytic lesions within the lumbar spine are noted. In addition, there is a lytic lesion within T12 with cortical disruption. Findings are better depicted on the lumbar spine CT which will be reported separately. IMPRESSION: 1. No bowel obstruction. 2. No significant change since prior CT. Cardiomegaly with moderate right and small left pleural effusions and mild edema. 3. Several left ureterovesical junction calculi, similar to prior exam. No hydronephrosis. Bilateral nephrolithiasis. 4. Multiple osseous metastases with pathologic L1 and L2 fractures status post kyphoplasty. Additional lesions within the lower thoracic and lumbar spine. 5. Heterogeneity of the liver with nodularity liver surface, similar to prior exam. This remains nonspecific and could reflect cirrhosis or metastatic disease. ACT 112: Negative or not required by law. Electronically signed by: Bob Alejandre M.D. 12/08/2023 6:23 PM PG Care Time/CCT Total # of Minutes Spent Total Time Spent with Patient: Total time spent is greater than 50% in coordination of care (as documented) at patient's floor/unit and/or counseling patient: Coding Level of Care Code 44138 IN/OBS CONSULT LVL 5,80M Diagnoses CKD (chronic kidney disease) stage V requiring chronic dialysis N18.6; Z99.2 Metastatic cancer to spine C79.51
--- NOTE | 2023-12-09 09:34 | Hospitalist Progress Note ---
Date of Service December 09, 2023 Assessment & Plan (1) 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: Plan: - CT Lumbar Spine: progressive lytic appearance T12 vertebral body, concern for additional metastasis. - Caution with opioid use given ESRD and hypotension- Plan for pain regimen with Tramadol q6h prn 4-6, Dilaudid 0.25 q3H prn 7-10 - Consult ortho spine Pt willing to try fentanyl transdermal, will start with low dose (2) Acute hip pain, bilateral: Plan: - acute worsening since admission last week - concern on imaging for worsening metastatic lesions to spine - Pain Regimen adding fentanyl (3) ESRD needing dialysis: Plan: - HD on Tuesday and Tuesday - still makes urine - Moderate right and small left pleural effusion with mild edema noted on CT; currently stable on imaging last admission - K= 4.8 - No indication for emergent dialysis; consult nephrology for HD tomorrow (4) Sacral ulcer: Plan: - consult wound care - pt refused exam of wound worsened by functional parapelegia and BMI 37 (5) Atrial fibrillation: Plan: - continue metoprolol rate controlled no on anticoagulation (6) Heart failure: Plan: - chronic and stable HFpef continue furosemide 40mg BID, metoprolol (7) Type 2 diabetes mellitus: Plan: - continue Lantus 10 units BID with SSI coverage (8) Hyponatremia: Plan: -chronic and unchanged - Poor PO intake per pt since d/c - watch free water intake and opiate use (9) Transaminitis: Plan: - history of MCKENZIE; CT A&P with heterogenous liver with nodule surface; cirrhosis vs metastatic disease - downtrending from prior hospitalization (10) Breast cancer: Plan: - dx 2020; now metastatic to lung - [facility]; injections in [place] - on fulvestrant monthly; was due for injection 12/06-> rescheduled to 12/13 - started on 10mg prednisone for hypercalcemia; plan to continue (11) Pleural effusion: Plan: - pleural effusion again noted on imaging; largely unchanged from prior - hypervolemia vs malignant effusion; could consider thoracentesis for diagnostic purposes depending on goals of care Plan VTE prophylaxis: Heparin q12 Code: Full Admission and Anticipated Discharge Date Admission Date: December 08, 2023 Subjective pt has bilateral hip pain without much relief from last stay, pt only has pain control when sitting and only relief from iv dilaudid sig other at bedside Physical Exam Physical Exam: pt is stable lungs are clear abd is soft and non tender Results & Data Results & Data Vital Signs (Past 12 Hours) Vital Signs Temp Pulse Pulse Resp BP BP Pulse Ox 12/09/23 07:55 98.2 F 99 H 18 115/77 96 12/09/23 07:35 86 12/09/23 06:00 75 12 94 12/09/23 04:21 12/09/23 03:00 88 12 112/57 L 100 12/09/23 02:36 91 H 20 112/57 L 100 12/09/23 01:34 95/62 L 99 12/09/23 01:28 90 12/08/23 23:00 82 18 99/53 L 98 O2 Del Method O2 Flow Rate 12/09/23 07:55 Nasal Cannula 2 12/09/23 07:35 12/09/23 06:00 Room Air 12/09/23 04:21 Nasal Cannula 2 12/09/23 03:00 Nasal Cannula 2 12/09/23 02:36 Nasal Cannula 2 12/09/23 01:34 Nasal Cannula 1 12/09/23 01:28 12/08/23 23:00 Nasal Cannula 1 Laboratory Results review cbc review chemistry PG Care Time/CCT Total # of Minutes Spent Total Time Spent with Patient: Total time spent is greater than 50% in coordination of care (as documented) at patient's floor/unit and/or counseling patient: Coding Level of Care Code 63727 SUB INP/OBS CARE 3/50MIN Diagnoses 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 M84.58XA; C79.51 Acute hip pain, bilateral M25.551; M25.552 ESRD needing dialysis N18.6; Z99.2 Sacral ulcer L98.429 Atrial fibrillation I48.91 Heart failure I50.9 Type 2 diabetes mellitus E11.9 Hyponatremia E87.1 Transaminitis R74.01 Breast cancer C50.912 Breast location: unspecified site of breast Estrogen receptor status: unspecified Laterality: left Patient sex: female Pleural effusion J90 (10) Breast cancer Breast location: unspecified site of breast Estrogen receptor status: unspecified Laterality: left Patient sex: female Qualified Code(s): C50.912 - Malignant neoplasm of unspecified site of left female breast
[2023-12-09] MEDS: traMADol HCL 50 MG TABLET PO PRN (10:46)
[2023-12-09] MEDS: HEPARIN SOD (PORCINE) 1000 UNIT/ML IV SCH (11:52)
[2023-12-09] MEDS: fentaNYL 12 MCG/HR TDSY TD SCH (16:34)
[2023-12-09] MEDS: CHECK fentaNYL PATCH PLACEMENT SCH (17:16)
[2023-12-09] MEDS: HYDROmorphone INJ 0.5 MG/0.5 ML SYR IV STA (21:30)
[2023-12-09 23:06] LABS: Hematocrit (blood only) 33.3 % (37.0-47.0); Hemoglobin 10.5 g/dl (12.0-16.0); Mean Corpuscular Hemoglobin 35.5 pg (25.0-34.0); Mean Corpuscular Hgb Conc 31.5 g/dL (32.0-36.0); Mean Corpuscular Volume 112.5 fL (80.0-100.0); Mean Platelet Volume 10.6 fL (9.4-12.4); Platelet Count 156 K/uL (130-400); RDW Coefficient of Variation 17.3 % (11.5-14.5); RDW Standard Deviation 72.2 fL (36.4-46.3); Red Blood Count 2.96 M/uL (4.20-5.40); White Blood Count 10.36 K/ul (4.8-10.8)
[2023-12-09 23:24] LABS: BUN Creatinine Ratio 9.8 (10-20); Calcium 8.6 mg/dl (8.6-10.3); Est GFR (African American) 13.2 ml/min; Est GFR (Non-African American) 11.4 ml/min; Magnesium 2.2 mg/dl (1.7-2.4); Potassium 3.9 mmol/L (3.5-5.1)
[2023-12-10 07:59] LABS: Albumin Level 3.5 gm/dl (3.4-5.0); Bilirubin,Total 0.7 mg/dl (0.2-1.0); Calcium 8.5 mg/dl (8.6-10.3); Creatinine Clr Calc Pharmacy 12.8 ml/min; Est GFR (Non-African American) 11.2 ml/min
[2023-12-10 08:52] LABS: Albumin Globulin Ratio 1.2 (0.9-2); BUN Creatinine Ratio 10.2 (10-20); Total Protein 6.5 gm/dl (6.0-8.3)
[2023-12-10 09:13] LABS: Hematocrit (blood only) 33.5 % (37.0-47.0); Hemoglobin 10.5 g/dl (12.0-16.0); Mean Corpuscular Hemoglobin 34.7 pg (25.0-34.0); Mean Corpuscular Hgb Conc 31.3 g/dL (32.0-36.0); Mean Corpuscular Volume 110.6 fL (80.0-100.0); Mean Platelet Volume 10.9 fL (9.4-12.4); Platelet Count 167 K/uL (130-400); RDW Coefficient of Variation 17.1 % (11.5-14.5); RDW Standard Deviation 68.9 fL (36.4-46.3); Red Blood Count 3.03 M/uL (4.20-5.40)
[2023-12-10] MEDS: HYDROmorphone INJ 0.5 MG/0.5 ML SYR IV PRN (12:39)
--- NOTE | 2023-12-10 12:46 | Nephrology Progress Note ---
Date of Service December 10, 2023 Assessment & Plan (1) ESRD (end stage renal disease): Plan: * Volume status and electrolyte balance are acceptable. No acute indication for HD today * Completed HD yesterday with adequate UF and clearance * Outpatient HD Rx: M&F [facility] 2.5hr, 2K 2Ca, F-180NR. EDW 90 kg. Access remains R IJ TCC * Continue furosemide as Rx to encourage urine output * Renal diet and 1.2 daily fluid restriction (2) Anemia: Plan: * Outpatient Rx Venofer 100 mg IVP with HD and Micera 30 IVP q 2 weeks with HD. * TUNDE held with Hgb >11. (3) Right hip pain: Plan: * s/p steroid injection bilateral hip on 11/29 by [facility] * Fentanyl patch added * PRN hydromorphone (4) Breast cancer: Admission and Anticipated Discharge Date Admission Date: December 08, 2023 Subjective Pauline was out of bed to her recliner this morning. She completed HD yesterday without complications. Unfortunately, she was in a considerable amount of pain and distress this AM. She reports significant right hip pain. There is tenderness along the lateral thigh and greater trochanteric bursa. Pauline states that pain started following injection during her prior hospitalization. Pain does not radiate. Pain is severe and stabbing with some relief with PRN hydromorphone. No fevers or chills. Appetite poor. Denies significant fluid retention or edema. Breathing comfortably. Review of Systems Review of Systems: All systems reviewed & are unremarkable except as noted in HPI & below Physical Exam Constitutional: well developed, + acute distress and + morbidly obese; + uncomfortable Eyes: no scleral abnormality and no corneal abnormality ENMT: Mouth: oral mucous membranes not dry Neck: normal visual inspection and trachea midline RIJ TDC with clean exit site Respiratory: normal respiratory effort Auscultation: lungs clear to auscultation bilaterally Cardiovascular: Rate/Rhythm: regular rate, regular rhythm and + irregularly irregular Heart Sounds: normal S1 and normal S2 Extremities: + edema Musculoskeletal: Extremities: no cyanosis, no clubbing and no lower extremity abnormal to inspection (fullness and tenderness along the lateral aspect of the right thigh) Skin: normal turgor; no lesions Neurologic: Motor/Sensory: no tremor and no asterixis Psychiatric: Orientation: alert and oriented x 3 Results & Data Vital Signs (Past 12 Hours) Vital Signs Temp Pulse Resp BP Pulse Ox O2 Del Method O2 Flow Rate 12/10/23 12:36 113/64 12/10/23 11:29 36.6 C 81 20 95/36 L 95 Nasal Cannula 1 12/10/23 07:56 36.6 C 85 20 120/66 96 Nasal Cannula 1 12/10/23 07:00 Nasal Cannula 1 12/10/23 03:46 36.5 C 87 20 99/56 L 96 Nasal Cannula 1 Laboratory Results Laboratory Results - last 24 hr 12/09/23 12/09/23 12/09/23 14:31 16:32 17:56 WBC RBC Hgb Hct MCV MCH MCHC RDW Std Deviation RDW Coeff of Amparo Plt Count MPV Absolute Nucleated RBC Nucleated RBC % (auto) Platelet Estimate Sodium Potassium Chloride Carbon Dioxide Anion Gap BUN Creatinine Est Cr Clr Drug Dosing Est GFR ( Amer) Est GFR (Non-Af Amer) BUN/Creatinine Ratio Glucose POC Glucose 73 97 94 Calcium Magnesium Total Bilirubin AST ALT Alkaline Phosphatase Total Protein Albumin Globulin Albumin/Globulin Ratio Nasal Screen MRSA (PCR) 12/09/23 12/09/23 12/09/23 20:52 21:45 22:31 WBC 10.36 RBC 2.96 L Hgb 10.5 L Hct 33.3 L MCV 112.5 H MCH 35.5 H MCHC 31.5 L RDW Std Deviation 72.2 H RDW Coeff of Amparo 17.3 H Plt Count 156 MPV 10.6 Absolute Nucleated RBC Nucleated RBC % (auto) Platelet Estimate Sodium 135 L Potassium 3.9 Chloride 98 Carbon Dioxide 25 Anion Gap 12 H BUN 36 H D Creatinine 3.68 H D Est Cr Clr Drug Dosing 13.0 Est GFR ( Amer) 13.2 Est GFR (Non-Af Amer) 11.4 BUN/Creatinine Ratio 9.8 L Glucose 121 H POC Glucose 195 H Calcium 8.6 Magnesium 2.2 Total Bilirubin AST ALT Alkaline Phosphatase Total Protein Albumin Globulin Albumin/Globulin Ratio Nasal Screen MRSA (PCR) Negative 12/10/23 12/10/23 12/10/23 06:42 08:05 08:16 WBC Cancelled 10.80 RBC Cancelled 3.03 L Hgb Cancelled 10.5 L Hct Cancelled 33.5 L MCV Cancelled 110.6 H MCH Cancelled 34.7 H MCHC Cancelled 31.3 L RDW Std Deviation Cancelled 68.9 H RDW Coeff of Amparo Cancelled 17.1 H Plt Count Cancelled 167 MPV Cancelled 10.9 Absolute Nucleated RBC Cancelled Nucleated RBC % (auto) Cancelled Platelet Estimate Cancelled Sodium 135 L Potassium 4.0 Chloride 99 Carbon Dioxide 24 Anion Gap 12 H BUN 38 H Creatinine 3.73 H Est Cr Clr Drug Dosing 12.8 Est GFR ( Amer) 13.0 Est GFR (Non-Af Amer) 11.2 BUN/Creatinine Ratio 10.2 Glucose 66 L POC Glucose 79 Calcium 8.5 L Magnesium Total Bilirubin 0.7 AST 24 ALT 72 H Alkaline Phosphatase 205 H Total Protein 6.5 Albumin 3.5 Globulin 3.0 Albumin/Globulin Ratio 1.2 Nasal Screen MRSA (PCR) 12/10/23 12:03 WBC RBC Hgb Hct MCV MCH MCHC RDW Std Deviation RDW Coeff of Amparo Plt Count MPV Absolute Nucleated RBC Nucleated RBC % (auto) Platelet Estimate Sodium Potassium Chloride Carbon Dioxide Anion Gap BUN Creatinine Est Cr Clr Drug Dosing Est GFR ( Amer) Est GFR (Non-Af Amer) BUN/Creatinine Ratio Glucose POC Glucose 93 Calcium Magnesium Total Bilirubin AST ALT Alkaline Phosphatase Total Protein Albumin Globulin Albumin/Globulin Ratio Nasal Screen MRSA (PCR) Diagnostic Findings CT OF THE ABDOMEN AND PELVIS WITHOUT CONTRAST COMPARISON STUDY: CT of the abdomen and pelvis December 02, 2023. FINDINGS: Moderate right and small left pleural effusions are unchanged since CT of December 02, 2023. Heart is moderately enlarged. A left breast density may reflect the primary lesion. Mild pulmonary edema within the lower lungs is again noted. Evaluation of the abdomen and pelvis is suboptimal on this unenhanced exam. There is oral contrast throughout portions of the colon and rectum from prior CT. Heterogeneity with nodularity of the liver surface is again noted. This is similar to prior CT. Spleen, adrenal glands and pancreas are unremarkable. There is extensive vascular calcification. Bilateral renal calculi are present. There is no hydronephrosis. Several left ureterovesical junction calculi measure up to 7 mm. These are similar to prior exam. There is no upstream dilatation. Mildly enlarged retroperitoneal lymph nodes are unchanged. No evidence for a bowel obstruction. No new sites of lymphadenopathy are identified. Previous kyphoplasty at the L1 and L2 levels is noted with underlying pathologic fractures, similar appearance to prior CT. Additional lytic lesions within the lumbar spine are noted. In addition, there is a lytic lesion within T12 with cortical disruption. Findings are better depicted on the lumbar spine CT which will be reported separately. IMPRESSION: 1. No bowel obstruction. 2. No significant change since prior CT. Cardiomegaly with moderate right and small left pleural effusions and mild edema. 3. Several left ureterovesical junction calculi, similar to prior exam. No hydronephrosis. Bilateral nephrolithiasis. 4. Multiple osseous metastases with pathologic L1 and L2 fractures status post kyphoplasty. Additional lesions within the lower thoracic and lumbar spine. 5. Heterogeneity of the liver with nodularity liver surface, similar to prior exam. This remains nonspecific and could reflect cirrhosis or metastatic disease. PG Care Time/CCT Total # of Minutes Spent Total Time Spent with Patient: Total time spent is greater than 50% in coordination of care (as documented) at patient's floor/unit and/or counseling patient: Coding Level of Care Code 59455 SUB INP/OBS CARE 3/50MIN Diagnoses ESRD (end stage renal disease) N18.6 Anemia D64.9 Right hip pain M25.551 Breast cancer C50.912 Breast location: unspecified site of breast Estrogen receptor status: unspecified Laterality: left Patient sex: female (4) Breast cancer Breast location: unspecified site of breast Estrogen receptor status: unspecified Laterality: left Patient sex: female Qualified Code(s): C50.912 - Malignant neoplasm of unspecified site of left female breast
[2023-12-10] MEDS: LORazepam 0.5 MG in SYRINGE 0.25 ML IV ONE (13:11)
[2023-12-10] MEDS: DICLOFENAC SOD 1% GEL 100 GM TUBE EXT SCH (13:21)
--- NOTE | 2023-12-10 14:44 | Hospitalist Progress Note ---
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 - Caution with opioid use given ESRD and hypotension- Plan for pain regimen with Tramadol q6h prn 4-6, Dilaudid 0.25 q3H prn 7-10 - Consult ortho spine Pt willing to try fentanyl transdermal, will start with low dose (2) Acute hip pain, bilateral: Plan: - acute worsening since admission last week - concern on imaging for worsening metastatic lesions to spine - Pain Regimen adding fentanyl (3) ESRD needing dialysis: Plan: - HD on Tuesday and Tuesday - still makes urine - Moderate right and small left pleural effusion with mild edema noted on CT; currently stable on imaging last admission - K= 4.8 - No indication for emergent dialysis; consult nephrology for HD tomorrow (4) Sacral ulcer: Plan: - consult wound care - pt refused exam of wound worsened by functional parapelegia and BMI 37 (5) Atrial fibrillation: Plan: - continue metoprolol rate controlled no on anticoagulation (6) Heart failure: Plan: - chronic and stable HFpef continue furosemide 40mg BID, metoprolol (7) Type 2 diabetes mellitus: Plan: - continue Lantus 10 units BID with SSI coverage (8) Hyponatremia: Plan: -chronic and unchanged - Poor PO intake per pt since d/c - watch free water intake and opiate use (9) Transaminitis: Plan: - history of MCKENZIE; CT A&P with heterogenous liver with nodule surface; cirrhosis vs metastatic disease - downtrending from prior hospitalization (10) Breast cancer: Plan: - dx 2020; now metastatic to lung - [facility]; injections in [place] - on fulvestrant monthly; was due for injection 12/06-> rescheduled to 12/13 - started on 10mg prednisone for hypercalcemia; plan to continue (11) Pleural effusion: Plan: - pleural effusion again noted on imaging; largely unchanged from prior - hypervolemia vs malignant effusion; could consider thoracentesis for diagnostic purposes depending on goals of care Plan VTE prophylaxis: Heparin q12 Code: Full Admission and Anticipated Discharge Date Admission Date: December 08, 2023 Subjective Patient here with significant pain mostly surrounding the hips. Patient's had recent hip injection without much improvement. Patient is known to have metastatic breast cancer. However the breast cancer has not been metastatic to her pelvis or hip area but to her lumbar spine. This was confirmed by bone biopsy. Patient does have some areas of induration to the lateral hips, CT scan on presentation did not show any confirmed fluid collections or abscess. Pending ultrasound at this time. Pain control has been challenging patient does this on intolerances medication she is agreeable to starting a fentanyl patch. Trying topical Voltaren, ice, Ultram as scheduled Tylenol Physical Exam Physical Exam: pt is stable lungs are clear abd is soft and non tender Patient has areas of induration lateral to the hip. These are large and elongated and firm but not fluctuant they are tender to touch Results & Data Results & Data Vital Signs (Past 12 Hours) Vital Signs Temp Pulse Resp BP Pulse Ox O2 Del Method O2 Flow Rate 12/10/23 12:36 113/64 12/10/23 11:29 97.9 F 81 20 95/36 L 95 Nasal Cannula 1 12/10/23 07:56 97.9 F 85 20 120/66 96 Nasal Cannula 1 12/10/23 07:00 Nasal Cannula 1 12/10/23 03:46 97.7 F 87 20 99/56 L 96 Nasal Cannula 1 Laboratory Results review cbc review chemistry PG Care Time/CCT Total # of Minutes Spent Total Time Spent with Patient: Total time spent is greater than 50% in coordination of care (as documented) at patient's floor/unit and/or counseling patient: Coding Level of Care Code 05140 SUB INP/OBS CARE 3/50MIN Diagnoses 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 M84.58XA; C79.51 Acute hip pain, bilateral M25.551; M25.552 ESRD needing dialysis N18.6; Z99.2 Sacral ulcer L98.429 Atrial fibrillation I48.91 Heart failure I50.9 Type 2 diabetes mellitus E11.9 Hyponatremia E87.1 Transaminitis R74.01 Breast cancer C50.912 Breast location: unspecified site of breast Estrogen receptor status: unspecified Laterality: left Patient sex: female Pleural effusion J90 (10) Breast cancer Breast location: unspecified site of breast Estrogen receptor status: unspecified Laterality: left Patient sex: female Qualified Code(s): C50.912 - Malignant neoplasm of unspecified site of left female breast
[2023-12-10] MEDS: HYDROmorphone INJ 1 MG/ML SYRINGE IV STA (15:14)
[2023-12-10] MEDS: KETOROLAC TROMETHAMINE 15 MG/ML VIAL IV ONE (15:14)
[2023-12-10] MEDS ORDERED: Nursing to Pharmacy Communication SCH (18:30)
[2023-12-10] MEDS: CHECK fentaNYL PATCH PLACEMENT SCH (21:19)
[2023-12-10] MEDS: DEXTROSE 50% 50 ML SYRINGE IV PRN (21:46)
[2023-12-10] MEDS: fentaNYL 25 MCG/HR TDSY TD SCH (21:58)
[2023-12-10] MEDS: traMADol HCL 50 MG TABLET PO SCH (22:00)
[2023-12-11 06:35] LABS: Hematocrit (blood only) 31.3 % (37.0-47.0); Hemoglobin 9.7 g/dl (12.0-16.0); Mean Corpuscular Hemoglobin 34.6 pg (25.0-34.0); Mean Corpuscular Volume 111.8 fL (80.0-100.0); Mean Platelet Volume 10.3 fL (9.4-12.4); Platelet Count 153 K/uL (130-400); RDW Coefficient of Variation 17.1 % (11.5-14.5); RDW Standard Deviation 70.8 fL (36.4-46.3); White Blood Count 9.43 K/ul (4.8-10.8)
[2023-12-11 06:51] LABS: BUN Creatinine Ratio 10.3 (10-20); Calcium 8.3 mg/dl (8.6-10.3); Creatinine Clr Calc Pharmacy 10.8 ml/min; Est GFR (African American) 10.5 ml/min; Est GFR (Non-African American) 9.1 ml/min; Potassium 4.6 mmol/L (3.5-5.1)
--- NOTE | 2023-12-11 08:14 | Ultrasound Report ---
US soft tissue ext ltd CLINICAL HISTORY: eval right hip induration for fluid collection COMPARISON STUDY: Abdomen and pelvis CT 12/08/2023. FINDINGS: Real-time sonographic imaging of the right hip was performed with insurance follow up representative images sub mitted. Mild edema and increased echogenicity within the subcutaneous fat. There are few scattered va ricosities noted. No loculated fluid collections, masses, lymphadenopathy identified. IMPRESSION: No loculated fluid collections within the right hip. ACT 112: Negative or not required by law. Electronically signed by: Duran Adhikari M.D. 12/11/2023 8:12 AM
--- NOTE | 2023-12-11 09:53 | Nephrology Progress Note ---
Date of Service December 11, 2023 Assessment & Plan (1) ESRD (end stage renal disease): Plan: * Volume status and electrolyte balance are acceptable. No indication for HD today. * Preliminary orders for treatment tomorrow were entered into the EHR. * Outpatient HD Rx: M&F [facility] 2.5hr, 2K 2Ca, F-180NR. EDW 90 kg. Access remains R IJ TCC * Continue furosemide as Rx to encourage urine output. * Renal diet and 1.2 daily fluid restriction. (2) Anemia: Plan: * Outpatient Rx: Venofer 100 mg IVP with HD and Micera 30 IVP q 2 weeks with HD. * Venofer and Epogen will be provided with HD tomorrow. (3) Right hip pain: Plan: * s/p steroid injection bilateral hip on 11/29 by [facility] * Fentanyl patch added * PRN hydromorphone * US and CT reviewed. No concerning fluid collection or hematoma noted. (4) Breast cancer: Admission and Anticipated Discharge Date Admission Date: December 08, 2023 Subjective No acute events overnight. Pauline was resting comfortably in bed this AM. Significant improvement in pain control. The lateral aspect of the right thigh/hip remains very tender. She is unable to put pressure on this side but comfortable resting in bed with pressure on the left hip this morning. Pain does not radiate. US did not demonstrate any fluid collection/hematoma. Mobility remains limited due to pain. Review of Systems Review of Systems: All systems reviewed & are unremarkable except as noted in HPI & below Physical Exam Constitutional: well developed, + acute distress, + morbidly obese and comfortable Eyes: no scleral abnormality and no corneal abnormality ENMT: Mouth: oral mucous membranes not dry Neck: normal visual inspection and trachea midline Respiratory: normal respiratory effort Auscultation: lungs clear to auscultation bilaterally Cardiovascular: Rate/Rhythm: regular rate, regular rhythm and + irregularly irregular Heart Sounds: normal S1 and normal S2 Extremities: + edema Musculoskeletal: Extremities: no cyanosis, no clubbing and no lower extremity abnormal to inspection (fullness and tenderness along the lateral aspect of the right thigh) Skin: normal turgor; no lesions Neurologic: Motor/Sensory: no tremor and no asterixis Psychiatric: Orientation: alert and oriented x 3 Results & Data Vital Signs (Past 12 Hours) Vital Signs Temp Pulse Pulse Resp BP Pulse Ox O2 Del Method 12/11/23 07:56 36.5 C 84 16 99/66 L 98 Nasal Cannula 12/11/23 07:10 72 12/11/23 03:43 36.8 C 74 16 87/49 L 98 Nasal Cannula 12/11/23 00:26 71 12/11/23 00:00 89/57 L 12/10/23 23:38 36.5 C 75 18 89/56 L 92 Nasal Cannula O2 Flow Rate 12/11/23 07:56 2 12/11/23 07:10 12/11/23 03:43 2 12/11/23 00:26 12/11/23 00:00 12/10/23 23:38 1 Laboratory Results Laboratory Results - last 24 hr 12/10/23 12/10/23 12/10/23 12:03 17:05 17:06 WBC RBC Hgb Hct MCV MCH MCHC RDW Std Deviation RDW Coeff of Amparo Plt Count MPV ESR Sodium Potassium Chloride Carbon Dioxide Anion Gap BUN Creatinine Est Cr Clr Drug Dosing Est GFR ( Amer) Est GFR (Non-Af Amer) BUN/Creatinine Ratio Glucose POC Glucose 93 57 L* 72 Calcium 12/10/23 12/10/23 12/10/23 20:26 21:43 22:16 WBC RBC Hgb Hct MCV MCH MCHC RDW Std Deviation RDW Coeff of Amparo Plt Count MPV ESR Sodium Potassium Chloride Carbon Dioxide Anion Gap BUN Creatinine Est Cr Clr Drug Dosing Est GFR ( Amer) Est GFR (Non-Af Amer) BUN/Creatinine Ratio Glucose POC Glucose 66 L* 63 L* 106 H Calcium 12/11/23 12/11/23 06:13 07:43 WBC 9.43 RBC 2.80 L Hgb 9.7 L Hct 31.3 L MCV 111.8 H MCH 34.6 H MCHC 31.0 L RDW Std Deviation 70.8 H RDW Coeff of Amparo 17.1 H Plt Count 153 MPV 10.3 ESR 93 H Sodium 134 L Potassium 4.6 Chloride 98 Carbon Dioxide 25 Anion Gap 11 BUN 46 H Creatinine 4.45 H D Est Cr Clr Drug Dosing 10.8 Est GFR ( Amer) 10.5 Est GFR (Non-Af Amer) 9.1 BUN/Creatinine Ratio 10.3 Glucose 70 POC Glucose 79 Calcium 8.3 L PG Care Time/CCT Total # of Minutes Spent Total Time Spent with Patient: Total time spent is greater than 50% in coordination of care (as documented) at patient's floor/unit and/or counseling patient: Coding Level of Care Code 27879 SUB INP/OBS CARE 350MIN Diagnoses ESRD (end stage renal disease) N18.6 Anemia D64.9 Right hip pain M25.551 Breast cancer C50.912 Breast location: unspecified site of breast Estrogen receptor status: unspecified Laterality: left Patient sex: female (4) Breast cancer Breast location: unspecified site of breast Estrogen receptor status: unspecified Laterality: left Patient sex: female Qualified Code(s): C50.912 - Malignant neoplasm of unspecified site of left female breast
--- NOTE | 2023-12-11 13:34 | Hospitalist Progress Note ---
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 - Caution with opioid use given ESRD and hypotension- Plan for pain regimen with Tramadol scheduled bid, fentanyl patch 25 mcg and voltaren, Dilaudid 0.25 q3H prn 7-10 (2) Acute hip pain, bilateral: Plan: - acute worsening since admission last week - concern on imaging for worsening metastatic lesions to spine, however these are not her most tender areas - Pain Regimen adding fentanyl indurated area on right hip u/s shows no defined abscess (3) ESRD needing dialysis: Plan: - HD on Tuesday and Tuesday - still makes urine - Moderate right and small left pleural effusion with mild edema noted on CT; currently stable on imaging last admission - K= 4.8 - No indication for emergent dialysis; consult nephrology for HD tomorrow (4) Sacral ulcer: Plan: - consult wound care - pt refused exam of wound worsened by functional parapelegia and BMI 37 (5) Atrial fibrillation: Plan: - continue metoprolol rate controlled no on anticoagulation (6) Heart failure: Plan: - chronic and stable HFpef continue furosemide 40mg BID, metoprolol (7) Type 2 diabetes mellitus: Plan: - continue Lantus 10 units BID with SSI coverage (8) Hyponatremia: Plan: -chronic and unchanged - Poor PO intake per pt since d/c - watch free water intake and opiate use (9) Transaminitis: Plan: - history of MCKENZIE; CT A&P with heterogenous liver with nodule surface; cirrhosis vs metastatic disease - downtrending from prior hospitalization (10) Breast cancer: Plan: - dx 2020; now metastatic to lung - [facility]; injections in [place] - on fulvestrant monthly; was due for injection 12/06-> rescheduled to 12/13 - started on 10mg prednisone for hypercalcemia; plan to continue (11) Pleural effusion: Plan: - pleural effusion again noted on imaging; largely unchanged from prior - hypervolemia vs malignant effusion; could consider thoracentesis for diagnostic purposes depending on goals of care Plan once pain control expect to d/c home, pt not interested in rehab VTE prophylaxis: Heparin q12 Code: Full Admission and Anticipated Discharge Date Admission Date: December 08, 2023 Subjective Patient feels somewhat improved over 1 day prior. She is not overly sleepy or confused. Progressive bruises of her left hip likely related to her intra-articular injection from 1 week ago Right hip remains indurated with no defined fluid collection seen on ultrasound Physical Exam Physical Exam: pt is stable lungs are clear abd is soft and non tender Patient has areas of induration lateral to the hip. These are large and elongated and firm but not fluctuant they remain tender to touch Results & Data Results & Data Vital Signs (Past 12 Hours) Vital Signs Temp Pulse Pulse Resp BP Pulse Ox O2 Del Method 12/11/23 11:17 98.1 F 85 16 99/64 L 94 Nasal Cannula 12/11/23 07:56 97.7 F 84 16 99/66 L 98 Nasal Cannula 12/11/23 07:10 72 12/11/23 03:43 98.2 F 74 16 87/49 L 98 Nasal Cannula O2 Flow Rate 12/11/23 11:17 2 12/11/23 07:56 2 12/11/23 07:10 12/11/23 03:43 2 Laboratory Results Reviewed CBC reviewed chemistry markedly elevated sed rate. 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 M84.58XA; C79.51 Acute hip pain, bilateral M25.551; M25.552 ESRD needing dialysis N18.6; Z99.2 Sacral ulcer L98.429 Atrial fibrillation I48.91 Heart failure I50.9 Type 2 diabetes mellitus E11.9 Hyponatremia E87.1 Transaminitis R74.01 Breast cancer C50.912 Breast location: unspecified site of breast Estrogen receptor status: unspecified Laterality: left Patient sex: female Pleural effusion J90 (10) Breast cancer Breast location: unspecified site of breast Estrogen receptor status: unspecified Laterality: left Patient sex: female Qualified Code(s): C50.912 - Malignant neoplasm of unspecified site of left female breast
[2023-12-12 08:14] LABS: Hematocrit (blood only) 32.4 % (37.0-47.0); Hemoglobin 10.1 g/dl (12.0-16.0)
[2023-12-12 08:37] LABS: Calcium 8.3 mg/dl (8.6-10.3); Potassium 5.2 mmol/L (3.5-5.1)
[2023-12-12 08:49] LABS: BUN Creatinine Ratio 10.9 (10-20); Creatinine Clr Calc Pharmacy 9.9 ml/min; Est GFR (African American) 9.3 ml/min
--- NOTE | 2023-12-12 09:50 | Nephrology Progress Note ---
Date of Service December 12, 2023 Assessment & Plan (1) ESRD (end stage renal disease): (2) Hypercalcemia: (3) Hyperkalemia: (4) Anemia: (5) Metastatic cancer to spine: (6) Sacral ulcer: Plan 73 year old with ESKD due to recurrent JEFFREY, hypercalcemia, dialyzes M,F at [facility] (2.5hr, 400/800, 2K 2Ca, F-180NR, EDW 90 kg) via R IJ TCC admitted with back pain. PMH of breast cancer with metastasis to bone including the lumbar spine, recurrent hypercalcemia, HFpEF, Mobitz type I second-degree AV block, dyslipidemia, AODM, HTN, GERD, and MCKENZIE. Has been having recurrent admissions over last few months with back and hip pain. CT scan of the lumbar spine on 12/08/23 showed multiple areas of skeletal metastatic lesion in the lower thoracic and lumbar spine, possible T12 vertebral pathologically fracture and moderate to severe degenerative disease. CT scan showed possible metastatic disease in liver as well. Previous imaging showed L1 vertebral body with radiolucency concerning for lytic disease/pathologic fracture and had kyphoplasty. She had steroid injection L hip joints on 11/30/2023 but she feels her pain significantly worsened since then. She has difficulty standing or making transfers. She is only comfortable while lying still on her back. She is on multiple pain medications now including fentanyl patch and her pain is just controlled. She was seen during dialysis this morning, tolerating dialysis, tolerating UF. -- Continue dialysis twice a week for 3 hours each, UF as tolerated, she is close to her dry weight. -- With ongoing significant pain, repeated hospitalization, requiring multiple pain medications [id number] and imaging findings showing worsening metastatic disease as well as degenerative disease and pathological fracture, recommend pain management and palliative care consult. -- Epogen 49849 units with HD today, complete venofer --start on Nephrocaps daily --check phos in am , if elevated, will start on non calcium binder Admission and Anticipated Discharge Date Admission Date: December 08, 2023 Subjective Pauline was seen and evaluated during dialysis this morning. She reports ongoing hip and back pain with any movement and pain medication is just barely controlling the pain. Was tolerating dialysis well, tolerating UF goal this morning, blood pressures staying stable. Hemoglobin stable. Electrolytes acceptable. Review of Systems Review of Systems: Detailed review of system was done and pertinent positives and negatives were mentioned above. Physical Exam Constitutional: WD/WN, vitals as above + ill appearing; no acute distress Eyes: + anicteric sclerae Neck: normal visual inspection Respiratory: Auscultation: lungs clear to auscultation bilaterally Cardiovascular: RRR, no murmur, no edema Extremities: + vascular access d evice (Rt IJ TDC) Skin: + rash; no jaundice Neurologic: no focal motor deficits and not confused Psychiatric: Orientation: alert and oriented x 3 Results & Data Vital Signs (Past 12 Hours) Vital Signs Temp Pulse Pulse Pulse Resp BP Pulse Ox 12/12/23 08:40 36.4 C L 64 17 100/57 L 93 12/12/23 06:40 83 12/12/23 02:07 36.5 C 88 16 112/75 100 12/12/23 00:31 12/12/23 00:15 85 12/11/23 21:57 36.9 C 85 18 127/64 98 O2 Del Method O2 Flow Rate 12/12/23 08:40 Room Air 12/12/23 06:40 12/12/23 02:07 Nasal Cannula 2 12/12/23 00:31 Nasal Cannula 1 12/12/23 00:15 12/11/23 21:57 Nasal Cannula 2 PG Care Time/CCT Total # of Minutes Spent Total Time Spent with Patient: Total time spent is greater than 50% in coordination of care (as documented) at patient's floor/unit and/or counseling patient: Coding Level of Care Code 64129 SUB INP/OBS CARE 3/50MIN Diagnoses ESRD (end stage renal disease) N18.6 Hypercalcemia E83.52 Hyperkalemia E87.5 Anemia D64.9 Metastatic cancer to spine C79.51 Sacral ulcer L98.429
[2023-12-12] MEDS: EPOETIN ALFA 20,000 UNITS/ML VIAL IV SCH (10:24)
[2023-12-12] MEDS: IRON SUCROSE 100 MG in SYRINGE 0 ML IV SCH (10:25)
[2023-12-12] MEDS: NEPHROCAPS PO SCH (13:51)
[2023-12-12] MEDS: CARBOHYDRATES FOR HYPOGLYCEMIA PO PRN (17:06)
--- NOTE | 2023-12-12 18:12 | Hospitalist Progress Note ---
Date of Service December 12, 2023 Assessment & Plan (1) 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: Plan: - CT Lumbar Spine: progressive lytic appearance T12 vertebral body, concern for additional metastasis. - Caution with opioid use given ESRD and hypotension acute on chronic hip pain Multimodal pain control with Tramadol scheduled bid, fentanyl patch incraase to 50 mcg and voltarengel , contineus with parenteral Dilaudid 0.25 q3H prn 7- 10 - concern on imaging for worsening metastatic lesions to spine, however these are not her most tender areas - no imaging changes in the hip/pelvis themselves indurated area on right hip u/s shows no defined abscess (2) ESRD needing dialysis: Plan: - HD on Tuesday and Tuesday - still makes urine - Moderate right and small left pleural effusion with mild edema noted on CT; currently stable on imaging last admission - K= 4.8 chronic but stable hyponatermia - (3) Sacral ulcer: Plan: - consult wound care - pt refused exam of wound worsened by functional parapelegia and BMI 37 (4) Atrial fibrillation: Plan: - continue metoprolol rate controlled not on anticoagulation (5) Heart failure: Plan: - chronic and stable HFpef continue furosemide 40mg BID, metoprolol (6) Type 2 diabetes mellitus: Plan: - continue Lantus 10 units BID with SSI coverage (7) Transaminitis: Plan: - history of MCKENZIE; CT A&P with heterogenous liver with nodule surface; cirrhosis vs metastatic disease - downtrending from prior hospitalization (8) Breast cancer: Plan: - dx 2020; now metastatic to lung - follows with [facility]; injections in [place] - on fulvestrant monthly; was due for injection 12/06-> rescheduled to 12/13 - started on 10mg prednisone for hypercalcemia; plan to continue (9) Pleural effusion: Plan: - pleural effusion again noted on imaging; largely unchanged from prior - hypervolemia vs malignant effusion; could consider thoracentesis for diagnostic purposes depending on goals of care Plan once pain control expect to d/c home, pt not interested in rehab VTE prophylaxis: Heparin q12 Code: Full Admission and Anticipated Discharge Date Admission Date: December 08, 2023 Subjective Pauline was seen and evaluated during dialysis this morning. She reports ongoing hip and back pain are improved but still significant no worsening of induration of hips, agreeable to adjust pain medications once again Physical Exam Physical Exam: pt is stable lungs are clear abd is soft and non tender Patient has areas of induration lateral to the hip. indurated areas are less tender to touch Results & Data Results & Data Vital Signs (Past 12 Hours) Vital Signs Temp Pulse Pulse Resp BP BP Pulse Ox 12/12/23 15:48 97.9 F 91 H 16 81/51 L 12/12/23 14:01 79 12/12/23 13:10 97.5 F L 77 102/49 L 12/12/23 12:30 83 89/50 L 12/12/23 12:00 88 92/55 L 12/12/23 11:30 80 163/72 H 12/12/23 11:15 82 99/42 L 12/12/23 11:00 71 87/48 L 12/12/23 10:43 85 98/42 L 12/12/23 10:30 84 86/70 L 12/12/23 10:13 12/12/23 10:00 84 116/56 L 12/12/23 09:30 86 156/97 H 12/12/23 09:24 78 115/82 12/12/23 09:22 97.9 F 72 12/12/23 08:40 97.5 F L 64 17 100/57 L 93 12/12/23 06:40 83 O2 Del Method O2 Flow Rate 12/12/23 15:48 Room Air 12/12/23 14:01 12/12/23 13:10 12/12/23 12:30 12/12/23 12:00 12/12/23 11:30 12/12/23 11:15 12/12/23 11:00 12/12/23 10:43 12/12/23 10:30 12/12/23 10:13 Nasal Cannula 2 12/12/23 10:00 12/12/23 09:30 12/12/23 09:24 12/12/23 09:22 12/12/23 08:40 Room Air 12/12/23 06:40 Laboratory Results review hgb review chemistry PG Care Time/CCT Total # of Minutes Spent Total Time Spent with Patient: Total time spent is greater than 50% in coordination of care (as documented) at patient's floor/unit and/or counseling patient: Coding Level of Care Code 76870 SUB INP/OBS CARE MIN Diagnoses 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
[2023-12-13] MEDS: CHECK fentaNYL PATCH PLACEMENT SCH (00:33)
[2023-12-13 05:15] LABS: Hematocrit (blood only) 32.6 % (37.0-47.0); Mean Corpuscular Hemoglobin 34.5 pg (25.0-34.0); Mean Corpuscular Hgb Conc 30.7 g/dL (32.0-36.0); Mean Corpuscular Volume 112.4 fL (80.0-100.0); Mean Platelet Volume 10.5 fL (9.4-12.4); Nucleated RBC # (auto) 0.02 K/uL (0.00-0.12); Nucleated RBC % (auto) 0.2 %; Platelet Count 162 K/uL (130-400); RDW Coefficient of Variation 16.7 % (11.5-14.5); RDW Standard Deviation 70.3 fL (36.4-46.3); White Blood Count 12.52 K/ul (4.8-10.8)
[2023-12-13 05:31] LABS: Albumin Level 3.1 gm/dl (3.4-5.0); BUN Creatinine Ratio 8.7 (10-20); Calcium 8.6 mg/dl (8.6-10.3); Creatinine Clr Calc Pharmacy 15.7 ml/min; Est GFR (African American) 16.2 ml/min; Phosphorus 4.4 mg/dl (2.5-4.9); Potassium 4.2 mmol/L (3.5-5.1)
[2023-12-13] MEDS: fentaNYL 50 MCG/HR TDSY TD SCH (08:35)
[2023-12-13] MEDS: DOCUSATE SODIUM/SENNA 50/8.6MG TAB PO SCH (08:37)
[2023-12-13] MEDS: POLYETHYLENE (MIRALAX) 17 GM PACK PO SCH (08:44)
--- NOTE | 2023-12-13 09:19 | Nephrology Progress Note ---
Date of Service December 13, 2023 Assessment & Plan (1) ESRD (end stage renal disease): (2) Hypercalcemia: (3) Hyperkalemia: (4) Anemia: (5) Metastatic cancer to spine: (6) Sacral ulcer: Plan 73 year old with ESKD due to recurrent JEFFREY, hypercalcemia, dialyzes M,F at [facility] (2.5hr, 400/800, 2K 2Ca, F-180NR, EDW 90 kg) via R IJ TCC admitted with back pain. PMH of breast cancer with metastasis to bone including the lumbar spine, recurrent hypercalcemia, HFpEF, Mobitz type I second-degree AV block, dyslipidemia, AODM, HTN, GERD, and MCKENZIE. Has been having recurrent admissions over last few months with back and hip pain. CT scan of the lumbar spine on 12/08/23 showed multiple areas of skeletal metastatic lesion in the lower thoracic and lumbar spine, possible T12 vertebral pathologically fracture and moderate to severe degenerative disease. CT scan showed possible metastatic disease in liver as well. Previous imaging showed L1 vertebral body with radiolucency concerning for lytic disease/pathologic fracture and had kyphoplasty. She had steroid injection L hip joints on 11/30/2023 but she feels her pain significantly worsened since then. She has difficulty standing or making transfers. She is only comfortable while lying still on her back. She is on multiple pain medications now including fentanyl patch and her pain is just controlled. Overall stable with some improvement in pain. BP, volume status, electrolyte acceptable, Phos 4.4 --next HD Tuesday for 3 hours each, UF as tolerated, she is below her dry weight. -- With ongoing significant pain, repeated hospitalization, requiring multiple pain medications [id number] and imaging findings showing worsening metastatic disease as well as degenerative disease and pathological fracture, recommend pain management and palliative care consult. -- Epogen 74203 units with HD given on 12/12/23, complete venofer --continue on Nephrocaps daily Admission and Anticipated Discharge Date Admission Date: December 08, 2023 Subjective Pauline was seen and evaluated this morning with family at bedside. She reports slight improvement in pain with adjustment of medication regimen. Had 1.9 L UF with HD yesterday, blood pressures staying low. Hemoglobin stable. Electrolytes acceptable. Review of Systems Review of Systems: Detailed review of system was done and pertinent positives and negatives were mentioned above. Physical Exam Constitutional: WD/WN, vitals as above + ill appearing; no acute distress Eyes: + anicteric sclerae Neck: normal visual inspection Respiratory: Auscultation: lungs clear to auscultation bilaterally Cardiovascular: RRR, no murmur, no edema Extremities: + vascular access device (Rt IJ TDC) Skin: + rash; no jaundice Neurologic: no focal motor deficits and not confused Psychiatric: Orientation: alert and oriented x 3 Results & Data Vital Signs (Past 12 Hours) Vital Signs Temp Pulse Pulse Pulse Resp BP BP 12/13/23 08:02 36.3 C L 86 16 104/66 12/13/23 05:57 77 12/13/23 03:02 36.4 C L 86 16 97/43 L 12/12/23 23:42 81 12/12/23 23:25 36.7 C 65 18 101/63 12/12/23 23:08 Pulse Ox O2 Del Method O2 Flow Rate 12/13/23 08:02 95 Nasal Cannula 1 12/13/23 05:57 12/13/23 03:02 99 Nasal Cannula 1 12/12/23 23:42 12/12/23 23:25 94 Room Air 12/12/23 23:08 Nasal Cannula 2 PG Care Time/CCT Total # of Minutes Spent Total Time Spent with Patient: Total time spent is greater than 50% in coordination of care (as documented) at patient's floor/unit and/or counseling patient: Coding Level of Care Code 49198 SUB INP/OBS CARE 2/35MIN Diagnoses ESRD (end stage renal disease) N18.6 Hypercalcemia E83.52 Hyperkalemia E87.5 Anemia D64.9 Metastatic cancer to spine C79.51 Sacral ulcer L98.429
--- NOTE | 2023-12-13 17:49 | Hospitalist Progress Note ---
Date of Service December 13, 2023 Assessment & Plan (1) 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: Plan: - CT Lumbar Spine: progressive lytic appearance T12 vertebral body, concern for additional metastasis. - Caution with opioid use given ESRD and hypotension acute on chronic hip pain Multimodal pain control with Tramadol scheduled bid, fentanyl patch incraase to 50 mcg and voltarengel , contineus with parenteral Dilaudid 0.25 q3H prn 7- 10 - concern on imaging for worsening metastatic lesions to spine, however these are not her most tender areas - no imaging changes in the hip/pelvis themselves indurated area on right hip u/s shows no defined abscess (2) ESRD needing dialysis: Plan: - HD on Tuesday and Tuesday - still makes urine - Moderate right and small left pleural effusion with mild edema noted on CT; currently stable on imaging last admission - K= 4.8 chronic but stable hyponatermia - (3) Sacral ulcer: Plan: - consult wound care - pt refused exam of wound worsened by functional parapelegia and BMI 37 (4) Atrial fibrillation: Plan: - continue metoprolol rate controlled not on anticoagulation (5) Heart failure: Plan: - chronic and stable HFpef continue furosemide 40mg BID, metoprolol (6) Type 2 diabetes mellitus: Plan: - continue Lantus 10 units BID with SSI coverage (7) Transaminitis: Plan: - history of MCKENZIE; CT A&P with heterogenous liver with nodule surface; cirrhosis vs metastatic disease - downtrending from prior hospitalization (8) Breast cancer: Plan: - dx 2020; now metastatic to lung - [facility]; injections in [place] - on fulvestrant monthly; was due for injection 12/06-> rescheduled to 12/13 - started on 10mg prednisone for hypercalcemia; plan to continue (9) Pleural effusion: Plan: - pleural effusion again noted on imaging; largely unchanged from prior - hypervolemia vs malignant effusion; could consider thoracentesis for diagnostic purposes depending on goals of care Plan once pain control expect to d/c home, pt not interested in rehab VTE prophylaxis: Heparin q12 Code: Full Admission and Anticipated Discharge Date Admission Date: December 08, 2023 Subjective the pt is feeling much better, still with some pain. have not reached steady state with new fentanyl patch using also scheduled Ultram Physical Exam Physical Exam: pt is stable lungs are clear abd is soft and non tender Patient has areas of induration lateral to the hip. indurated areas are less tender to touch Results & Data Results & Data Vital Signs (Past 12 Hours) Vital Signs Temp Pulse Pulse Pulse Resp BP Pulse Ox 12/13/23 15:34 97.5 F L 69 16 86/56 L 94 12/13/23 14:05 80 12/13/23 11:41 98.1 F 73 16 92/49 L 93 12/13/23 10:19 12/13/23 08:02 97.3 F L 86 16 104/66 95 12/13/23 05:57 77 O2 Del Method O2 Flow Rate 12/13/23 15:34 Room Air 12/13/23 14:05 12/13/23 11:41 Nasal Cannula 1 12/13/23 10:19 Nasal Cannula 2 12/13/23 08:02 Nasal Cannula 1 12/13/23 05:57 Laboratory Results review cbc review chemisty PG Care Time/CCT Total # of Minutes Spent Total Time Spent with Patient: Total time spent is greater than 50% in coordination of care (as documented) at patient's floor/unit and/or counseling patient: Coding Level of Care Code 86837 SUB INP/OBS CARE 2/35MIN Diagnoses 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
--- NOTE | 2023-12-14 10:19 | Nephrology Progress Note ---
Date of Service December 14, 2023 Assessment & Plan (1) ESRD (end stage renal disease): (2) Hypercalcemia: (3) Hyperkalemia: (4) Anemia: (5) Metastatic cancer to spine: (6) Sacral ulcer: Plan 73 year old with ESKD due to recurrent JEFFREY, hypercalcemia, dialyzes M,F at [facility] (2.5hr, 400/800, 2K 2Ca, F-180NR, EDW 90 kg) via R IJ TCC admitted with back pain. PMH of breast cancer with metastasis to bone including the lumbar spine, recurrent hypercalcemia, HFpEF, Mobitz type I second-degree AV block, dyslipidemia, AODM, HTN, GERD, and MCKENZIE. Has been having recurrent admissions over last few months with back and hip pain. CT scan of the lumbar spine on 12/08/23 showed multiple areas of skeletal metastatic lesion in the lower thoracic and lumbar spine, possible T12 vertebral pathologically fracture and moderate to severe degenerative disease. CT scan showed possible metastatic disease in liver as well. Previous imaging showed L1 vertebral body with radiolucency concerning for lytic disease/pathologic fracture and had kyphoplasty. She had steroid injection L hip joints on 11/30/2023 but she feels her pain significantly worsened since then. She has difficulty standing or making transfers. She is only comfortable while lying still on her back. She is on multiple pain medications now including fentanyl patch and her pain is just controlled. Stressed with on going pain. BP low, volume status, electrolyte acceptable, Phos 4.4 --recommend a course of tapered dose of prednisone. HD Tuesday for 3 hours each, UF as tolerated, she is below her dry weight. --pending recommendation from pain management consult. --Epogen 02631 units with HD given on 12/12/23 --continue on Nephrocaps daily Admission and Anticipated Discharge Date Admission Date: December 08, 2023 Subjective Pauline was seen and evaluated this morning with family at bedside. She was sitting in chair but was in significant on going pain. BP relatively low, volume status acceptable. Review of Systems Review of Systems: Detailed review of system was done and pertinent positives and negatives were mentioned above. Physical Exam Constitutional: WD/WN, vitals as above + acute distress and + ill appearing Eyes: + anicteric sclerae Neck: normal visual inspection Respiratory: Auscultation: lungs clear to auscultation bilaterally Cardiovascular: RRR, no murmur, no edema Extremities: + vascular access device (Rt IJ TDC) Skin: + rash; no jaundice Neurologic: no focal motor deficits and not confused Psychiatric: Orientation: alert and oriented x 3 Results & Data Vital Signs (Past 12 Hours) Vital Signs Temp Pulse Pulse Resp BP Pulse Ox O2 Del Method 12/14/23 08:26 86 12/14/23 07:32 36.6 C 104 H 18 93/60 L 91 Room Air 12/14/23 02:55 36.6 C 68 20 75/45 L 94 Room Air 12/13/23 23:34 36.4 C L 84 20 84/59 L 94 Room Air 12/13/23 23:08 Room Air 12/13/23 23:00 75 PG Care Time/CCT Total # of Minutes Spent Total Time Spent with Patient: Total time spent is greater than 50% in coordination of care (as documented) at patient's floor/unit and/or counseling patient: Coding Level of Care Code 68643 SUB INP/OBS CARE 2/35MIN Diagnoses ESRD (end stage renal disease) N18.6 Hypercalcemia E83.52 Hyperkalemia E87.5 Anemia D64.9 Metastatic cancer to spine C79.51 Sacral ulcer L98.429
--- NOTE | 2023-12-14 10:28 | Hospitalist Progress Note ---
Date of Service December 14, 2023 Assessment & Plan (1) 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: Plan: - CT Lumbar Spine: progressive lytic appearance T12 vertebral body, concern for additional metastasis. - Caution with opioid use given ESRD and hypotension Given worsening symptoms and drowsiness reduce dilaudid to 0.25mg IV q4h PRN, start gabapentin 100mg PO TID, give x1 dose dexamethasone and monitor response I suspect her worsening symptoms are due to being in hospital and moving around less due to increased sedation with the opiates - at this point recommend consulting ortho spine and pain management for ongoing recommendations as we have moved backwards rather than forwards since admission (2) ESRD needing dialysis: Plan: Appreciate ongoing nephrology management of dialysis (3) Sacral ulcer: Plan: Reviewed wound images from 12/11, continue wound management, monitor labs for signs of infection (4) Atrial fibrillation: Plan: - continue metoprolol Currently in sinus (5) Heart failure: Plan: - chronic and stable HFpef continue furosemide 40mg BID, metoprolol (6) Type 2 diabetes mellitus: Plan: Multiple episodes of hypoglycemia during hospitalization - stop Lantus Continue Novolog for correction factor (7) Transaminitis: Plan: - history of MCKENZIE; CT A&P with heterogenous liver with nodule surface; cirrhosis vs metastatic disease - downtrending from prior hospitalization (8) Breast cancer: Plan: - dx 2020; now metastatic to lung - [facility]; injections in [place] - on fulvestrant monthly; was due for injection 12/06-> rescheduled to 12/13 - started on 10mg prednisone for hypercalcemia; plan to continue - currently on 5mg PO daily (9) Pleural effusion: Plan: - pleural effusion again noted on imaging; largely unchanged from prior - hypervolemia vs malignant effusion; could consider thoracentesis for diagnostic purposes depending on goals of care Plan VTE prophylaxis: Heparin q12 Diet - dialysis renal Disposition - continue on med/tele given ongoing drowsiness Admission and Anticipated Discharge Date Admission Date: December 08, 2023 Subjective Finding it hard to stay awake when seen. Reports ongoing pain that has actually been getting worse during her hospitalization. Feels she can walk less now than when she came in. Pain in both side of her back and radiates down later hip to the front of her thigh. Reports weakness in both legs in addition. No urinary or bowel complaints. Review of Systems Review of Systems: All systems reviewed & are unremarkable except as noted in HPI & below Physical Exam Constitutional: well developed; + not well nourished and no acute distress Respiratory: normal respiratory effort, lungs clear to auscultation Cardiovascular: Rate/Rhythm: regular rate and regular rhythm Heart Sounds: no murmur Gastrointestinal (Abdomen): normal bowel sounds, soft, nontender, no hepatosplenomegaly Psychiatric: A+Ox3, euthymic affect (drowsy and difficulty keeping her eyes open when seen) Results & Data Results & Data Vital Signs (Past 12 Hours) Vital Signs Temp Pulse Pulse Resp BP Pulse Ox O2 Del Method 12/14/23 08:26 86 12/14/23 07:32 36.6 C 104 H 18 93/60 L 91 Room Air 12/14/23 02:55 36.6 C 68 20 75/45 L 94 Room Air 12/13/23 23:34 36.4 C L 84 20 84/59 L 94 Room Air 12/13/23 23:08 Room Air 12/13/23 23:00 75 PG Care Time/CCT Total # of Minutes Spent Total Time Spent with Patient: Total time spent is greater than 50% in coordination of care (as documented) at patient's floor/unit and/or counseling patient: Coding Level of Care Code 10644 SUB INP/OBS CARE 2/35MIN Diagnoses 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
[2023-12-14] MEDS ORDERED: DEXAMETHASONE SOD INJ 4 MG/ML VIAL IV STA (13:54)
[2023-12-14] MEDS: GABAPENTIN 100 MG CAP PO SCH (14:30)
[2023-12-14] MEDS: dexAMETHasone 4 MG in SYRINGE 0 ML IV STA (14:30)
[2023-12-14] MEDS: ALBUMIN 5% 250 ML IV ONE (23:09)
[2023-12-14] MEDS: HYDROmorphone INJ 0.5 MG/0.5 ML SYR IV PRN (23:13)
--- NOTE | 2023-12-15 08:28 | Orthopedic Consultation ---
Date of Consultation December 15, 2023 Assessment & Plan (1) Metastatic cancer to spine: Assessment possible metastatic disease to the spine. Plan at this time her back pain is well-controlled. I would not recommend any surgical intervention particularly in light of her sacral ulcers. If she does not continue to progress to have worsening symptoms MRI of the spine would be reasonable. Otherwise recommend physical therapy as tolerated. History of Present Illness Reason for Consultation: Compression fracture Attending Physician: Phi Frank MD History of Present Illness This is a very pleasant 73-year-old female known to me the presents with multiple medical issues. She has a questionable new fracture T12 on imaging. This morning she states her back pain is well-controlled. Her major symptoms had improved after the kyphoplasty in August. She struggling with some right hip pain but denies any radicular complaints. Allergies Allergy/AdvReac Type Severity Reaction Status Date / Time amoxicillin Allergy Severe LIPS Verified 12/08/23 19:52 SWELLED, "RED ALL OVER" doxycycline Allergy Severe LIPS Verified 12/08/23 19:52 SWELLED, "RED ALL OVER". cephalexin [From Keflex] Allergy Intermediate skin Verified 12/08/23 19:52 starts to peel off sulfamethoxazole Allergy Unknown CAN'T Verified 12/08/23 19:52 [From Bactrim] REMEMBER trimethoprim [From Bactrim] Allergy Unknown CAN'T Verified 12/08/23 19:52 REMEMBER atorvastatin AdvReac Intermediate Myalgia Verified 12/08/23 19:52 Home Medications Medication Instructions Recorded Confirmed Type omega-3 fatty acids 1,000 mg 2,000 mg (2 x 1,000 mg) PO BID 07/19/22 12/08/23 Rx capsule #360 caps allopurinol 100 mg tablet 50 mg (1/2 x 100 mg) PO DAILY #45 06/28/23 12/08/23 Rx tabs furosemide 40 mg tablet 40 mg PO BID #180 tabs 06/28/23 12/08/23 Rx insulin aspart U-100 100 unit/mL See Rx Instructions subcut 06/28/23 12/08/23 Rx (3 mL) subcutaneous pen (Novolog DIRECTED #135 mL FlexPen U-100 Insulin aspart) metoprolol succinate 25 mg 25 mg PO DAILY #90 tabs 06/28/23 12/08/23 Rx tablet,extended release 24 hr venlafaxine 75 mg capsule,extended 75 mg PO DAILY #90 caps 06/28/23 12/08/23 Rx release 24 hr insulin glargine 100 unit/mL (3 10 unit subcut BID 09/13/23 12/08/23 History mL) subcutaneous pen (Lantus Solostar U-100 Insulin) ondansetron HCl 4 mg tablet 4 mg PO Q4H PRN nausea and 10/05/23 12/08/23 Rx vomiting #30 tabs oxycodone 5 mg tablet 5 mg PO Q4H PRN pain #30 tabs 10/05/23 12/08/23 Rx tramadol 50 mg tablet 50 mg PO Q6H PRN Pain #60 tabs 11/25/23 12/08/23 Rx acetaminophen 325 mg capsule 650 mg PO QID PRN Pain 12/08/23 12/08/23 History cyanocobalamin (vitamin B-12) 1,000 mcg PO DAILY 12/08/23 12/08/23 History 1,000 mcg tablet (Vitamin B-12) lidocaine 5 % topical patch 1 patch topical DAILY PRN Pain 12/08/23 12/08/23 History prednisone 10 mg tablet 5 mg PO DAILY 12/08/23 12/08/23 History Patient History Medical History 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 (09/13/23) Intractable back pain CKD (chronic kidney disease) stage V requiring chronic dialysis Elevated troponin Anemia Iron deficiency anemia (HFpEF) heart failure with preserved ejection fraction Mobitz type 1 second degree AV block Breast cancer diagnosed 2020 Statin myopathy Hyperuricemia Crystal arthropathy Candidal intertrigo Chronic stasis dermatitis Dyslipidemia Seborrheic dermatitis Type 2 diabetes mellitus HTN (hypertension) GERD (gastroesophageal reflux disease) MCKENZIE (nonalcoholic steatohepatitis) Surgical History History of tonsillectomy and adenoidectomy Hx of cholecystectomy History of appendectomy Humerus fracture surgical repair Family History Father Depression Diabetes Mother Hypertension Kidney stones Gallbladder disease Denies family history of Ovarian cancer Prostate cancer Myocardial infarction Breast cancer Colorectal cancer Social History Smoking Status: Never smoker Second Hand Exposure: No; Do You Dip or Chew Tobacco: No; Hx Alcohol Use: No Hx Substance Use: No Preferred Language: Greenlandic Communication Ability: Effective Visual Impairment: Limited Hearing Ability: Normal Research Professor Required: No Beliefs That Will Affect Care: None marital status: Current Living Situation: Significant Other Current Living Situation Comment: lives at home with and caregiver 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 She is regional strength testing lower EXTR and extremities. Sensory intact. Results & Data Vital Signs (Past 12 Hours) Vital Signs Temp Pulse Pulse Pulse Resp BP BP 12/15/23 07:48 36.8 C 93 H 18 102/58 L 12/15/23 02:37 36.8 C 88 18 88/49 L 12/14/23 23:55 91/62 L 12/14/23 22:39 87/59 L 12/14/23 22:28 75 12/14/23 22:16 36.5 C 94 H 16 83/47 L 83/47 L Pulse Ox O2 Del Method 12/15/23 07:48 96 Room Air 12/15/23 02:37 94 Room Air 12/14/23 23:55 12/14/23 22:39 12/14/23 22:28 12/14/23 22:16 95 Room Air
[2023-12-15 08:35] LABS: Hematocrit (blood only) 32.9 % (37.0-47.0); Hemoglobin 10.2 g/dl (12.0-16.0); Mean Corpuscular Hemoglobin 34.3 pg (25.0-34.0); Mean Corpuscular Volume 110.8 fL (80.0-100.0); Mean Platelet Volume 10.9 fL (9.4-12.4); Nucleated RBC # (auto) 0.15 K/uL (0.00-0.12); Platelet Count 202 K/uL (130-400); RDW Coefficient of Variation 16.9 % (11.5-14.5); RDW Standard Deviation 68.4 fL (36.4-46.3); Red Blood Count 2.97 M/uL (4.20-5.40); White Blood Count 14.38 K/ul (4.8-10.8)
[2023-12-15 09:00] LABS: Albumin Level 3.3 gm/dl (3.4-5.0); BUN Creatinine Ratio 10.6 (10-20); Bilirubin,Total 0.7 mg/dl (0.2-1.0); Creatinine Clr Calc Pharmacy 10.4 ml/min; Est GFR (Non-African American) 8.7 ml/min; Globulin 3.2 gm/dl (2.5-4.0); Magnesium 2.3 mg/dl (1.7-2.4); Phosphorus 6.3 mg/dl (2.5-4.9); Potassium 5.7 mmol/L (3.5-5.1); Total Protein 6.5 gm/dl (6.0-8.3)
[2023-12-15 09:04] LABS: Basophils # (auto) 0.02 K/uL (0.00-0.20); Basophils % (auto) 0.1 %; Immature Granulocytes # (auto) 0.17 K/uL (0.01-0.20); Immature Granulocytes % (auto) 1.2 %; Lymphocytes # (auto) 0.66 K/uL (1.20-3.40); Lymphocytes % (auto) 4.6 %; Monocytes # (auto) 0.54 K/uL (0.11-0.59); Monocytes % (auto) 3.8 %; Neutrophils # (auto) 12.99 K/uL (1.40-6.50); Neutrophils % (auto) 90.3 %
--- NOTE | 2023-12-15 10:20 | Nephrology Progress Note ---
Date of Service December 15, 2023 Assessment & Plan (1) ESRD (end stage renal disease): (2) Hypercalcemia: (3) Hyperkalemia: (4) Anemia: (5) Metastatic cancer to spine: (6) Sacral ulcer: Plan 73 year old with ESKD due to recurrent JEFFREY, hypercalcemia, dialyzes M,F at [facility] (2.5hr, 400/800, 2K 2Ca, F-180NR, EDW 90 kg) via R IJ [facility] admitted with back pain. PMH of breast cancer with metastasis to bone including the lumbar spine, recurrent hypercalcemia, HFpEF, Mobitz type I second-degree AV block, dyslipidemia, AODM, HTN, GERD, and MCKENZIE. Has been having recurrent admissions over last few months with back and hip pain. CT scan of the lumbar spine on 12/08/23 showed multiple areas of skeletal metastatic lesion in the lower thoracic and lumbar spine, possible T12 vertebral pathologically fracture and moderate to severe degenerative disease. CT scan showed possible metastatic disease in liver as well. Previous imaging showed L1 vertebral body with radiolucency concerning for lytic disease/pathologic fracture and had kyphoplasty. She had steroid injection L hip joints on 11/30/2023 but she feels her pain significantly worsened since then. She has difficulty standing or making transfers. She is only comfortable while lying still on her back. She is on multiple pain medications now including fentanyl patch and her pain is just controlled. Stressed with on going pain although reports slight improvement. BP low, volume status acceptable but has multiple electrolyte abnormalities. --HD today for 3 h with 2 K bath as lab notable for multiple electrolyte abnormalities. --Epogen 69176 units with HD --continue on Nephrocaps daily Admission and Anticipated Discharge Date Admission Date: December 08, 2023 Subjective Pauline was seen and evaluated this morning.She reports slight improvement in pain. BP relatively low, volume status acceptable. has multiple electrolyte abnormalities, last HD was Tuesday. Review of Systems Review of Systems: Detailed review of system was done and pertinent positives and negatives were mentioned above. Physical Exam Constitutional: WD/WN, vitals as above + acute distress and + ill appearing Eyes: + anicteric sclerae Neck: normal visual inspection Respiratory: Auscultation: lungs clear to auscultation bilaterally Cardiovascular: RRR, no murmur, no edema Extremities: + vascular access device (Rt IJ TDC) Skin: + ulcer (sacral decubitus); no jaundice Neurologic: no focal motor deficits and not confused Psychiatric: Orientation: alert and oriented x 3 Results & Data Vital Signs (Past 12 Hours) Vital Signs Temp Pulse Pulse Pulse Resp BP BP 12/15/23 07:48 36.8 C 93 H 18 102/58 L 12/15/23 02:37 36.8 C 88 18 88/49 L 12/14/23 23:55 91/62 L 12/14/23 22:39 87/59 L 12/14/23 22:28 75 12/14/23 22:16 36.5 C 94 H 16 83/47 L 83/47 L Pulse Ox O2 Del Method 12/15/23 07:48 96 Room Air 12/15/23 02:37 94 Room Air 12/14/23 23:55 12/14/23 22:39 12/14/23 22:28 12/14/23 22:16 95 Room Air PG Care Time/CCT Total # of Minutes Spent Total Time Spent with Patient: Total time spent is greater than 50% in coordination of care (as documented) at patient's floor/unit and/or counseling patient: Coding Level of Care Code 87636 SUB INP/OBS CARE 2/35MIN Diagnoses ESRD (end stage renal disease) N18.6 Hypercalcemia E83.52 Hyperkalemia E87.5 Anemia D64.9 Metastatic cancer to spine C79.51 Sacral ulcer L98.429
--- NOTE | 2023-12-15 12:31 | Pain Management Consultation ---
Date of Consultation December 15, 2023 Assessment & Plan (1) Intractable pain: (2) 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: (3) Metastatic cancer to spine: (4) Sacral ulcer: (5) ESRD needing dialysis: Plan 1. Patient with complaints of hip area pain right greater than left-sided of uncertain etiology although has significant bony metastatic disease identified in the lumbar spine with history of breast cancer. She does have significant areas of soft tissue induration in the right greater than left lateral gluteal and hip location of uncertain etiology with recent ultrasound failing to reveal evidence of loculation/fluid. Patient is a poor candidate for any interventional treatment at this time due to her sacral decubitus and therefore pain service will defer any interventional treatment. 2. She is reporting improved pain control with initiation of fentanyl recently titrated to 50 mcg dosing. Would recommend maintaining this current dosing at this time. Would recommend moving the fentanyl patch to the shoulder, deltoid or anterior chest location as opposed to the lumbar spine. This was discussed with nursing staff. 3. Will transition her tramadol to 50 mg every 4 hours for as needed breakthrough pain instead of twice daily scheduled dosing with further titration pending response 4. Patient recently initiated gabapentin 100 mg 3 times daily. Consider titration pending response/tolerability Thank you for allowing us to participate in the care of Mrs. Ceballos History of Present Illness Reason for Consultation: Bilateral low back/hip pain right greater than left-sided Requesting Physician: Phi Frank MD Attending Physician: Phi Frank MD History of Present Illness Mrs. Ceballos is a 73-year-old morbidly obese white female who was admitted on 12/09/2023 with complaint of back pain extending to the hips bilaterally. She was discharged a few days prior and return to the emergency department due to this complaint. The patient has been experiencing worsening pain over the past 1-2 months. She does have history of prior lumbar spine surgery with Dr. Adame August 2023 when she underwent kyphoplasty of the L1 and L2 vertebral bodies due to compression fracture. The patient has known diffuse metastatic breast cancer to the spine as well as a current ongoing sacral decubitus ulcer. She did undergo bilateral intra-articular hip injections 2 weeks ago which failed to provide any short-term or sustained benefit of her current pain complaint. Patient was started on fentanyl upon this admission which was increased to 50 mcg every 72 hours 3 days ago. She reports her pain is slightly improved with this dosage adjustment and she is tolerating the medication without notable side effects. She is finding tramadol to be effective for breakthrough pain which is currently prescribed 50 mg twice daily scheduled. Patient rates her pain a 4- 8/10. Patient describes the pain as aching and episodically sharp in the posterior lateral hip location right greater than left-sided without a true radicular pattern. Her pain can occur with sitting, lying supine or positional change. The patient does have end-stage renal disease currently on dialysis. Patient reports minimal axial low back pain complaint. Her pain does not travel below the level of the proximal thigh location. Patient denies bowel or bladder incontinence or saddle anesthesia. Patient has no further constitutional complaints. Plan of care discussed with Dr. Charlotte Mosley. Allergies Allergy/AdvReac Type Severity Reaction Status Date / Time amoxicillin Allergy Severe LIPS Verified 12/08/23 19:52 SWELLED, "RED ALL OVER" doxycycline Allergy Severe LIPS Verified 12/08/23 19:52 SWELLED, "RED ALL OVER". cephalexin [From Keflex] Allergy Intermediate skin Verified 12/08/23 19:52 starts to peel off sulfamethoxazole Allergy Unknown CAN'T Verified 12/08/23 19:52 [From Bactrim] REMEMBER trimethoprim [From Bactrim] Allergy Unknown CAN'T Verified 12/08/23 19:52 REMEMBER atorvastatin AdvReac Intermediate Myalgia Verified 12/08/23 19:52 Home Medications Medication Instructions Recorded Confirmed Type omega-3 fatty acids 1,000 mg 2,000 mg (2 x 1,000 mg) PO BID 07/19/22 12/08/23 Rx capsule #360 caps allopurinol 100 mg tablet 50 mg (1/2 x 100 mg) PO DAILY #45 06/28/23 12/08/23 Rx tabs furosemide 40 mg tablet 40 mg PO BID #180 tabs 06/28/23 12/08/23 Rx insulin aspart U-100 100 unit/mL See Rx Instructions subcut 06/28/23 12/08/23 Rx (3 mL) subcutaneous pen (Novolog DIRECTED #135 mL FlexPen U-100 Insulin aspart) metoprolol succinate 25 mg 25 mg PO DAILY #90 tabs 06/28/23 12/08/23 Rx tablet,extended release 24 hr venlafaxine 75 mg capsule,extended 75 mg PO DAILY #90 caps 06/28/23 12/08/23 Rx release 24 hr insulin glargine 100 unit/mL (3 10 unit subcut BID 09/13/23 12/08/23 History mL) subcutaneous pen (Lantus Solostar U-100 Insulin) ondansetron HCl 4 mg tablet 4 mg PO Q4H PRN nausea and 10/05/23 12/08/23 Rx vomiting #30 tabs oxycodone 5 mg tablet 5 mg PO Q4H PRN pain #30 tabs 10/05/23 12/08/23 Rx tramadol 50 mg tablet 50 mg PO Q6H PRN Pain #60 tabs 11/25/23 12/08/23 Rx acetaminophen 325 mg capsule 650 mg PO QID PRN Pain 12/08/23 12/08/23 History cyanocobalamin (vitamin B-12) 1,000 mcg PO DAILY 12/08/23 12/08/23 History 1,000 mcg tablet (Vitamin B-12) lidocaine 5 % topical patch 1 patch topical DAILY PRN Pain 12/08/23 12/08/23 History prednisone 10 mg tablet 5 mg PO DAILY 12/08/23 12/08/23 History Patient History Medical History 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 (09/13/23) Intractable back pain CKD (chronic kidney disease) stage V requiring chronic dialysis Elevated troponin Anemia Iron deficiency anemia (HFpEF) heart failure with preserved ejection fraction Mobitz type 1 second degree AV block Breast cancer diagnosed 2020 Statin myopathy Hyperuricemia Crystal arthropathy Candidal intertrigo Chronic stasis dermatitis Dyslipidemia Seborrheic dermatitis Type 2 diabetes mellitus HTN (hypertension) GERD (gastroesophageal reflux disease) MCKENZIE (nonalcoholic steatohepatitis) Surgical History History of tonsillectomy and adenoidectomy Hx of cholecystectomy History of appendectomy Humerus fracture surgical repair Family History Father Depression Diabetes Mother Hypertension Kidney stones Gallbladder disease Denies family history of Ovarian cancer Prostate cancer Myocardial infarction Breast cancer Colorectal cancer Social History Smoking Status: Never smoker Second Hand Exposure: No; Do You Dip or Chew Tobacco: No; Hx Alcohol Use: No Hx Substance Use: No Preferred Language: Setswana Communication Ability: Effective Visual Impairment: Limited Hearing Ability: Normal Printer Floor Covering Assistant Required: No Beliefs That Will Affect Care: None marital status: Current Living Situation: Significant Other Current Living Situation Comment: lives at home with and caregiver 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 Speech and thought process appropriate. Mood and affect appropriate. Cognition intact. Patient morbidly obese and physically deconditioned. Head: Normocephalic and atraumatic. ENT: No evidence of nasal or oral mucosal lesions. Mucous membranes are moist. Eyes: Pupils equal round reactive to light. Abdomen: Soft and nondistended. No organomegaly. Bowel sounds active. Back/spine: Patient was able to logroll with assistance for examination without obvious discomfort. Fentanyl patch is present in the right flank. Dressing in place over the sacral region which was not removed for visual inspection. Patient is tender to provocative testing over the SI joint location bilaterally right greater left-sided. She is moderately tender throughout the gluteal region bilaterally. Patient has a large area of induration on the right greater than left lateral gluteal and lateral hip location with some erythema. There is no skin breakdown or fluctuance. She is tender to palpation over the area of induration. Lower extremities: SLR negative bilaterally. Strength testing 5/5 with dorsi and plantarflexion 4/5 with hip flexion/extension. Hips are nontender with internal/external rotation. Moderately tender over the greater trochanter bilaterally. Chronic hemosiderosis of the ankle and distal pretibial location. Trace-1+ pitting edema. Neurologic: Cranial nerves grossly intact. Ambulatory function not witnessed. Results (Pain Clinic) Diagnostic Review CT Findings: [facility], [place] [phone] CT Scan Report Patient: ANGELA CEBALLOS Admit Date: 12/08/23 MR#: [id number] Address1: [address] Acct ID:[id number] Address2: Date: 1950 [facility] Zip: [place] [address] Age: 73 Location: ED Sex: F Room/Bed: Att Phy: Diagnosis: SEVERE BACK PAIN, HIP PAIN Joanna Phy: Pat Alejandre MD Service Date: 12/08/23 [facility] Phy: Interpreting Phy: Bob Alejandre MDAit Phy: Ordering Phy: Thomas Garcia DO cc: ~ CT OF THE LUMBAR SPINE CLINICAL HISTORY: Back pain. Breast cancer. COMPARISON STUDY: Lumbar spine CT September 13, 2023. Lumbar spine MRI October 18, 2023. TECHNIQUE: Helical axial images of the lumbar spine were obtained. Sagittal and coronal reconstructions were viewed. Automated exposure control was utilized for the study. A dose lowering technique was utilized adhering to the principles of ALARA. FINDINGS: Please note that the abdomen and pelvis CT will be reported separately. For purposes of numbering on this exam, the L5-S1 disc space is assigned to axial image 151 of 198. Alignment of the lumbar spine is anatomic. L1 and L2 kyphoplasty for pathologic fractures is again noted. The postprocedural appearance is similar to abdominal CT of December 02, 2023. Progressive lytic appearance of the T12 vertebral body is noted. This suggests additional metastases. No associated pathologic fracture would be difficult to exclude. No vertebral body height loss at this level is noted. An additional L4 vertebral body metastasis is unchanged. A lytic focus within L5 is unchanged. There is moderate multilevel facet arthrosis and moderate to severe multilevel disc space narrowing within the lumbar spine. Central canal and neural foramen are suboptimally assessed given CT technique. IMPRESSION: 1. Multiple skeletal lesions within the lower thoracic and lumbar spine consistent with metastases. Pathologic fracture at the T12 level would be difficult to exclude. No vertebral body height loss. 2. Status post L1 and L2 kyphoplasty. Stable postprocedural appearance. 3. Moderate to severe multilevel degenerative changes within the lumbar spine. Suboptimal evaluation of central canal and neural foramen given CT technique. ACT 112: Negative or not required by law. Electronically signed by: Bob Alejandre M.D. 12/08/2023 6:35 PM Dictated: 12/08/23 1829 Transcribed: 12/08/231828 [place], [place] [phone] CT Scan Report Patient: ANGELA CEBALLOS Admit Date: 12/08/23 MR#: [id number] Address1: [address] Acct ID:[id number] Address2: Date: 1950 [facility] Zip: [place] [address] Age: 73 Location: ED Sex: F Room/Bed: Att Phy: Diagnosis: SEVERE BACK PAIN, HIP PAIN Joanna Phy: Pta Alejandre MD Service Date: 12/08/23 [facility] Phy: Interpreting Phy: Bob Alejandre MDAit Phy: Ordering Phy: Thomas Garcia DO cc: ~ CT OF THE ABDOMEN AND PELVIS WITHOUT CONTRAST CLINICAL HISTORY: Back pain. Breast cancer. COMPARISON STUDY: CT of the abdomen and pelvis December 02, 2023. TECHNIQUE: Axial images of the abdomen and pelvis were obtained without IV contrast. Images were reviewed in the axial, sagittal, and coronal planes. Automated exposure control was utilized for the study. A dose lowering technique was utilized adhering to the principles of ALARA. FINDINGS: Moderate right and small left pleural effusions are unchanged since CT of December 02, 2023. Heart is moderately enlarged. A left breast density may reflect the primary lesion. Mild pulmonary edema within the lower lungs is again noted. Evaluation of the abdomen and pelvis is suboptimal on this unenhanced exam. There is oral contrast throughout portions of the colon and rectum from prior CT. Heterogeneity with nodularity of the liver surface is again noted. This is similar to prior CT. Spleen, adrenal glands and pancreas are unremarkable. There is extensive vascular calcification. Bilateral renal calculi are present. There is no hydronephrosis. Several left ureterovesical junction calculi measure up to 7 mm. These are similar to prior exam. There is no upstream dilatation. Mildly enlarged retroperitoneal lymph nodes are unchanged. No evidence for a bowel obstruction. No new sites of lymphadenopathy are identified. Previous kyphoplasty at the L1 and L2 levels is noted with underlying pathologic fractures, similar appearance to prior CT. Additional lytic lesions within the lumbar spine are noted. In addition, there is a lytic lesion within T12 with cortical disruption. Findings are better depicted on the lumbar spine CT which will be reported separately. IMPRESSION: 1. No bowel obstruction. 2. No significant change since prior CT. Cardiomegaly with moderate right and small left pleural effusions and mild edema. 3. Several left ureterovesical junction calculi, similar to prior exam. No hydronephrosis. Bilateral nephrolithiasis. 4. Multiple osseous metastases with pathologic L1 and L2 fractures status post kyphoplasty. Additional lesions within the lower thoracic and lumbar spine. 5. Heterogeneity of the liver with nodularity liver surface, similar to prior exam. This remains nonspecific and could reflect cirrhosis or metastatic disease. ACT 112: Negative or not required by law. Electronically signed by: Bob Alejandre M.D. 12/08/2023 6:23 PM Dictated: 12/08/231807 Transcribed: 12/08/231807 Other Findings: [place], [place] [phone] Ultrasound Report Patient: ANGELA CEBALLOS Admit Date: 12/08/23 MR#: [id number] Address1: [address] [place] [address] Acct ID:[id number] Address2: Date: 1950 [facility] Zip: [place] [address] Age: 73 Location: W Sex: F Room/Bed: [facility] Att Phy: Cliff Fishman MD Diagnosis: BACK PAIN SECONDARY TO METASTATIS Joanna Phy: Pat Alejandre MD Service Date: 12/11/23 Fam Phy: Interpreting Phy: Duran Adhikari MDAdmit Phy: Kim Burgos DO Ordering Phy: Cliff Fishman MD cc: ~ US soft tissue ext ltd CLINICAL HISTORY: eval right hip induration for fluid collection COMPARISON STUDY: Abdomen and pelvis CT 12/08/2023. FINDINGS: Real-time sonographic imaging of the right hip was performed with utility sales representative images submitted. Mild edema and increased echogenicity within the subcutaneous fat. There are few scattered varicosities noted. No loculated fluid collections, masses, lymphadenopathy identified. IMPRESSION: No loculated fluid collections within the right hip. ACT 112: Negative or not required by law. Electronically signed by: Duran Adhikari M.D. 12/11/2023 8:12 AM Dictated: 12/11/23 0741 Transcribed: 12/11/23 0742
[2023-12-15] MEDS: EPOETIN ALFA 10,000 UNITS/ML VIAL IV STA (12:44)
[2023-12-15] MEDS ORDERED: DEXAMETHASONE SOD INJ 4 MG/ML VIAL IV SCH (15:15)
--- NOTE | 2023-12-15 15:30 | Hospitalist Progress Note ---
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 - Caution with opioid use given ESRD and hypotension Given worsening symptoms and drowsiness reduced dilaudid to 0.25mg IV q4h PRN, started gabapentin 100mg PO TID, on discussion with her will start dexamethasone 4mg q6h I suspect her worsening symptoms are due to being in hospital and moving around less due to increased sedation with the opiates Appreciate pain management recommendations. Pain does not appear to be coming from her hips as I am able to internally/externally rotate her hips without significant issue. Suspect her pain is more radiculopathy. She does have skin induration over bilateral lateral hips which is painful but not her main pain, soft tissue US of this area on 12/10 did not show a loculated fluid collection, does not appear to be getting larger and bilateral does not fit with infectious cause (2) ESRD needing dialysis: Plan: Appreciate ongoing nephrology management of dialysis (3) Sacral ulcer: Plan: Reviewed wound images from 12/11, continue wound management, rechecked 12/15 appears similar with no surrounding cellulitis areas (4) Atrial fibrillation: Plan: - continue metoprolol Currently in sinus (5) Heart failure: Plan: - chronic and stable HFpef continue furosemide 40mg BID, metoprolol (6) Type 2 diabetes mellitus: Plan: Multiple episodes of hypoglycemia during hospitalization - stop Lantus Continue Novolog for correction factor (7) Transaminitis: Plan: Resolved (8) Breast cancer: Plan: - dx 2020; now metastatic to lung - [place] [facility] [place] - on fulvestrant monthly; was due for injection 12/06-> rescheduled to 12/13 - started on 10mg prednisone for hypercalcemia; plan to continue - currently on 5mg PO daily (9) Pleural effusion: Plan: - pleural effusion again noted on imaging; largely unchanged from prior - hypervolemia vs malignant effusion; could consider thoracentesis for diagnost ic purposes depending on goals of care Plan VTE prophylaxis: Heparin q12 Diet - dialysis renal Disposition - continue on med/tele given ongoing drowsiness Admission and Anticipated Discharge Date Admission Date: December 08, 2023 Subjective Lying in bed. Compaining of needing something for pain but then falls asleep easily. Wakes easily. Able to roll with difficulkty for inspection of her back. Pain on palpation of Physical Exam Constitutional: WD/WN, vitals as above well developed; + not well nourished and no acute distress Respiratory: normal respiratory effort, lungs clear to auscultation Cardiovascular: Rate/Rhythm: regular rate and regular rhythm Heart Sounds: no murmur Gastrointestinal (Abdomen): normal bowel sounds, soft, nontender, no hepatosplenomegaly Psychiatric: A+Ox3, euthymic affect (drowsy and difficulty keeping her eyes open when seen) Results & Data Results & Data Vital Signs (Past 12 Hours) Vital Signs Temp Pulse Pulse Pulse Resp BP BP 12/15/23 15:08 107 H 24 98/63 L 12/15/23 13:30 54 L 120/39 L 12/15/23 13:05 36.5 C 90 12/15/23 13:00 77 94/45 L 12/15/23 12:30 61 97/47 L 12/15/23 12:00 71 85/35 L 12/15/23 11:30 83 96/57 L 12/15/23 11:00 99 H 94/41 L 12/15/23 10:51 36.5 C 75 12/15/23 07:48 36.8 C 93 H 18 BP Pulse Ox O2 Del Method 12/15/23 15:08 92 Room Air 12/15/23 13:30 12/15/23 13:05 107/56 L 12/15/23 13:00 12/15/23 12:30 12/15/23 12:00 12/15/23 11:30 12/15/23 11:00 12/15/23 10:51 12/15/23 07:48 102/58 L 96 Room Air PG Care Time/CCT Total # of Minutes Spent Total Time Spent with Patient: Total time spent is greater than 50% in coordination of care (as documented) at patient's floor/unit and/or counseling patient: Coding Level of Care Code 51323 SUB INP/OBS CARE 2/35MIN Diagnoses 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
[2023-12-15] MEDS: dexAMETHasone 4 MG in SYRINGE 0 ML IV SCH (15:46)
[2023-12-15] MEDS: traMADol HCL 50 MG TABLET PO PRN (21:12)
--- NOTE | 2023-12-16 10:29 | Nephrology Progress Note ---
Date of Service December 16, 2023 Assessment & Plan (1) ESRD (end stage renal disease): (2) Hypercalcemia: (3) Hyperkalemia: (4) Anemia: (5) Metastatic cancer to spine: (6) Sacral ulcer: Plan 73 year old with ESKD due to recurrent JEFFREY, hypercalcemia, dialyzes M,F at [facility] (2.5hr, 400/800, 2K 2Ca, F-180NR, EDW 90 kg) via R IJ TCC admitted with back pain. PMH of breast cancer with metastasis to bone including the lumbar spine, recurrent hypercalcemia, HFpEF, Mobitz type I second-degree AV block, dyslipidemia, AODM, HTN, GERD, and MCKENZIE. Has been having recurrent admissions over last few months with back and hip pain. CT scan of the lumbar spine on 12/08/23 showed multiple areas of skeletal metastatic lesion in the lower thoracic and lumbar spine, possible T12 vertebral pathologically fracture and moderate to severe degenerative disease. CT scan showed possible metastatic disease in liver as well. Previous imaging showed L1 vertebral body with radiolucency concerning for lytic disease/pathologic fracture and had kyphoplasty. She had steroid injection L hip joints on 11/30/2023 but she feels her pain significantly worsened since then. She has difficulty standing or making transfers. She is only comfortable while lying still on her back. She is on multiple pain medications now including fentanyl patch and her pain is just controlled. Overall doing better with better pain control. BP low, volume status acceptable but has multiple electrolyte abnormalities. --HD tomorrow for 3 h tomorrow. --Epogen 96236 units with HD tomorrow --continue on Nephrocaps daily Admission and Anticipated Discharge Date Admission Date: December 08, 2023 Subjective Pauline was seen and evaluated this morning.Shelooked comfortable and reports much improvement in pain. BP relatively low, volume status acceptable. Had HD yesterday. Review of Systems Review of Systems: Detailed review of system was done and pertinent positives and negatives were mentioned above. Physical Exam Constitutional: WD/WN, vitals as above + ill appearing Eyes: + anicteric sclerae Neck: normal visual inspection Respiratory: Auscultation: lungs clear to auscultation bilaterally Cardiovascular: RRR, no murmur, no edema Extremities: + vascular access device (Rt IJ TDC) Skin: + rash and + ulcer (sacral decubitus); n o jaundice Neurologic: no focal motor deficits and not confused Psychiatric: Orientation: alert and oriented x 3 Results & Data Vital Signs (Past 12 Hours) Vital Signs Temp Pulse Pulse Resp BP BP Pulse Ox 12/16/23 07:57 36.7 C 90 18 77/50 L 81/45 L 95 12/16/23 07:38 72 12/16/23 03:34 36.6 C 83 18 84/50 L 99 12/16/23 00:05 80 O2 Del Method 12/16/23 07:57 Room Air 12/16/23 07:38 12/16/23 03:34 Room Air 12/16/23 00:05 PG Care Time/CCT Total # of Minutes Spent Total Time Spent with Patient: Total time spent is greater than 50% in coordination of care (as documented) at patient's floor/unit and/or counseling patient: Coding Level of Care Code 51303 SUB INP/OBS CARE 2/35MIN Diagnoses ESRD (end stage renal disease) N18.6 Hypercalcemia E83.52 Hyperkalemia E87.5 Anemia D64.9 Metastatic cancer to spine C79.51 Sacral ulcer L98.429
[2023-12-16] MEDS ORDERED: [UNRECOGNIZED DRUG - OTHER] IM ONE (16:30)
--- NOTE | 2023-12-16 18:07 | Hospitalist Progress Note ---
Date of Service December 16, 2023 Assessment & Plan (1) Acute hip pain, bilateral: Plan: Given that she is doing a lot better, I do suspect now it was probably bilateral hip DJD pain, as well as possibly a degree of lumbar radiculopathy. She had steroid injections, and felt worsebut now is probably having a late benefit, either from the steroid injections themselves, and systemic corticosteroids, or both. 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 - Caution with opioid use given ESRD and hypotension -Steroids are likely helping with the radicular component of this probably can start to wean steroids over the next 1-2 days (3) ESRD needing dialysis: Plan: Appreciate ongoing nephrology management of dialysis (4) Sacral ulcer: Plan: Reviewed wound images from 12/11, continue wound management, no surrounding cellulitis noted (5) Atrial fibrillation: Plan: - continue metoprolol Currently in sinus (6) Heart failure: Plan: - chronic and stable HFpef continue furosemide 40mg BID, metoprolol (7) Type 2 diabetes mellitus: Plan: Sugars spiked a little with her steroids, overall control given the situation is not too wildLantus was held due to lower sugars earlier in her hospital stay, but now with the steroids on boardwill resume Lantus. Will likely need to stop it once we come down on the steroids. (8) Transaminitis: Plan: Resolved (9) Breast cancer: Plan: - dx 2020; now metastatic to lung - follows with [facility]; injections in [place] - on fulvestrant monthly; was due for injection 12/06-> ordered as a nonformulary med and will be doing on to be given Monday 12/18 - started on 10mg prednisone for hypercalcemia; plan to continue - currently on 5mg PO daily (10) Pleural effusion: Plan: - pleural effusion again noted on imaging; largely unchanged from prior - hypervolemia vs malignant effusion; could consider thoracentesis for diagnostic purposes depending on goals of care Plan VTE prophylaxis: Heparin q12 Diet - dialysis renal Disposition -right now it does not look like she would be safe at home, was denied for rehab. With her hip pain improving, her and I are hopeful that she may perform better with therapy and that home with extra support will be an option; at the same time if it is not, then disposition may be more difficult given the patient and 's adamant desire that she "not go to a custodial" and while they are extremely reasonable on just about everything, this has been very difficult to broach in the past even for short-term rehab purposes. Admission and Anticipated Discharge Date Admission Date: December 08, 2023 Subjective Notes that hip pain is doing better. Still fairly groggywife relates probably to narcotics. Patient very worried about her inability to walk. Patient still a bit sedated insulin but hard for her to speak for selfher notes that she absolutely want to go to a custodial. I am informed that rehab was denied. I passed this along to patient/. Review of Systems Review of Systems: All systems reviewed & are unremarkable except as noted in HPI & below Physical Exam Physical Exam: Groggy but awakens. No distress. Is very weak. Sacral ulcer fairly small with thin exudate no surrounding erythema. Skin without other rashes pallor or icterus. Neuro without focal deficits. Results & Data Results & Data Vital Signs (Past 12 Hours) Vital Signs Temp Pulse Pulse Resp BP BP BP 12/16/23 15:50 98.1 F 83 20 94/69 L 12/16/23 12:20 97.5 F L 74 20 88/55 L 12/16/23 08:00 12/16/23 07:57 98.1 F 90 18 77/50 L 81/45 L 12/16/23 07:38 72 Pulse Ox O2 Del Method 12/16/23 15:50 93 Room Air 12/16/23 12:20 93 Room Air 12/16/23 08:00 Room Air 12/16/23 07:57 95 Room Air 12/16/23 07:38 PG Care Time/CCT Total # of Minutes Spent Total Time Spent with Patient: Total time spent is greater than 50% in coordination of care (as documented) at patient's floor/unit and/or counseling patient: Coding Level of Care Code 98469 SUB INP/OBS CARE 3/50MIN Diagnoses Acute hip pain, bilateral M25.551; M25.552 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
[2023-12-16] MEDS: fentaNYL 25 MCG/HR TDSY TD SCH (19:57)
[2023-12-16] MEDS: LANTUS PER UNIT CHARGE SQ SCH (21:14)
[2023-12-17] MEDS: CHECK fentaNYL PATCH PLACEMENT SCH (00:50)
[2023-12-17 05:56] LABS: Hematocrit (blood only) 29.9 % (37.0-47.0); Hemoglobin 9.4 g/dl (12.0-16.0); Mean Corpuscular Hemoglobin 34.8 pg (25.0-34.0); Mean Corpuscular Hgb Conc 31.4 g/dL (32.0-36.0); Mean Corpuscular Volume 110.7 fL (80.0-100.0); Nucleated RBC # (auto) 0.39 K/uL (0.00-0.12); Nucleated RBC % (auto) 2.5 %; Platelet Count 169 K/uL (130-400); RDW Coefficient of Variation 17.2 % (11.5-14.5); RDW Standard Deviation 67.1 fL (36.4-46.3); White Blood Count 15.64 K/ul (4.8-10.8)
[2023-12-17 06:08] LABS: Albumin Level 3.1 gm/dl (3.4-5.0); BUN Creatinine Ratio 13.4 (10-20); Calcium 8.9 mg/dl (8.6-10.3); Creatinine Clr Calc Pharmacy 12.6 ml/min; Est GFR (African American) 12.6 ml/min; Est GFR (Non-African American) 10.9 ml/min; Phosphorus 4.5 mg/dl (2.5-4.9); Potassium 4.7 mmol/L (3.5-5.1)
--- NOTE | 2023-12-17 12:37 | Nephrology Progress Note ---
Date of Service December 17, 2023 Assessment & Plan (1) ESRD (end stage renal disease): (2) Hypercalcemia: (3) Hyperkalemia: (4) Anemia: (5) Metastatic cancer to spine: (6) Sacral ulcer: Plan 73 year old with ESKD due to recurrent JEFFREY, hypercalcemia, dialyzes M,F at [facility] (2.5hr, 400/800, 2K 2Ca, F-180NR, EDW 90 kg) via R IJ TCC admitted with back pain. PMH of breast cancer with metastasis to bone including the lumbar spine, recurrent hypercalcemia, HFpEF, Mobitz type I second-degree AV block, dyslipidemia, AODM, HTN, GERD, and MCKENZIE. Has been having recurrent admissions over last few months with back and hip pain. CT scan of the lumbar spine on 12/08/23 showed multiple areas of skeletal metastatic lesion in the lower thoracic and lumbar spine, possible T12 vertebral pathologically fracture and moderate to severe degenerative disease. CT scan showed possible metastatic disease in liver as well. Previous imaging showed L1 vertebral body with radiolucency concerning for lytic disease/pathologic fracture and had kyphoplasty. She had steroid injection L hip joints on 11/30/2023 but she feels her pain significantly worsened since then. She has difficulty standing or making transfers. She is only comfortable while lying still on her back. She is on multiple pain medications now including fentanyl patch and her pain is just controlled. BP low, volume status acceptable. --HD Tuesday. --Epogen 59755 units with next HD --continue on Nephrocaps daily Admission and Anticipated Discharge Date Admission Date: December 08, 2023 Subjective Pauline was seen and evaluated this morning. She again noticed worsening of back pain this morning. BP relatively low, volume status acceptable. Had HD . Review of Systems Review of Systems: Detailed review of system was done and pertinent positives and negatives were mentioned above. Physical Exam Constitutional: WD/WN, vitals as above + acute distress and + ill appearing Eyes: + anicteric sclerae Neck: normal visual inspection Respiratory: Auscultation: lungs clear to auscultation bilaterally Cardiovascular: RRR, no murmur, no edema Extremities: + vascular access device (Rt IJ TDC) Skin: + rash and + ulcer (sacral decubitus); n o jaundice Neurologic: no focal motor deficits and not confused Psychiatric: Orientation: alert and oriented x 3 Results & Data Vital Signs (Past 12 Hours) Vital Signs Temp Pulse Pulse Resp BP BP Pulse Ox 12/17/23 11:29 36.6 C 88 18 81/54 L 95 12/17/23 08:09 36.2 C L 76 18 94/62 L 93 12/17/23 08:00 12/17/23 07:46 92 H 12/17/23 03:08 36.9 C 76 17 101/54 L 95 12/17/23 02:20 36.6 C 95 H 16 93/57 L 94 O2 Del Method 12/17/23 11:29 Room Air 12/17/23 08:09 Room Air 12/17/23 08:00 Room Air 12/17/23 07:46 12/17/23 03:08 Room Air 12/17/23 02:20 Room Air PG Care Time/CCT Total # of Minutes Spent Total Time Spent with Patient: Total time spent is greater than 50% in coordination of care (as documented) at patient's floor/unit and/or counseling patient: Coding Level of Care Code 67103 SUB INP/OBS CARE 2/35MIN Diagnoses ESRD (end stage renal disease) N18.6 Hypercalcemia E83.52 Hyperkalemia E87.5 Anemia D64.9 Metastatic cancer to spine C79.51 Sacral ulcer L98.429
--- NOTE | 2023-12-17 17:20 | Hospitalist Progress Note ---
Date of Service December 17, 2023 Assessment & Plan (1) Acute hip pain, bilateral: Plan: Given that she is doing a lot better, suspect now it was probably bilateral hip DJD pain, as well as possibly a degree of lumbar radiculopathy. She had steroid injections, and felt worsebut now is probably having a late benefit, either from the steroid injections themselves, systemic corticosteroids, or both. Suspect her grogginess and lower blood pressures are most likely from the narcotics that she was being given to treat her pain, though steroids seem to be helping now. Will continue to wean back on the narcotics [facility] [place] is really no significant rebound in pain over the next 24 hours, could consider discontinuing entirely (2) 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: Plan: - CT Lumbar Spine: progressive lytic appearance T12 vertebral body, concern for additional metastasis. - Caution with opioid use given ESRD and hypotension -Steroids are likely helping with the radicular component of this probably can start to wean steroids over the next 1-2 days (3) ESRD needing dialysis: Plan: Appreciate ongoing nephrology management of dialysis Patient declines today and nephro ok with postponing to Tuesday (4) Sacral ulcer: Plan: Continue wound management (5) Atrial fibrillation: Plan: - continue metoprolol Currently in sinus (6) Heart failure: Plan: - chronic and stable HFpef continue furosemide 40mg BID, metoprolol (7) Type 2 diabetes mellitus: Plan: Sugars spiked a little with her steroids, overall control given the situation is not too wildLantus was held due to lower sugars earlier in her hospital stay, but now with the steroids on boardwill resume Lantus. Will likely need to stop it once we come down on the steroids. (8) Transaminitis: Plan: Resolved (9) Breast cancer: Plan: - dx 2020; now metastatic to lung - follows with [facility] K[facility]; injections in [place] - on fulvestrant monthly; was due for injection 12/06-> ordered as a nonformulary med and will be doing on Tuesdaydu to be given Monday 12/18 - started on 10mg prednisone for hypercalcemia; plan to continue - currently on 5mg PO daily (10) Pleural effusion: Plan: - pleural effusion again noted on imaging; largely unchanged from prior - hypervolemia vs malignant effusion; could consider thoracentesis for diagnostic purposes depending on goals of care Plan VTE prophylaxis: Heparin q12 Diet - dialysis renal Disposition -right now it does not look like she would be safe at home, was denied for rehab. With her hip pain improving, her and I are hopeful that she may perform better with therapy and that home with extra support will be an option; at the same time if it is not, then disposition may be more difficult given the patient and 's adamant desire that she "not go to a custodial" and while they are extremely reasonable on just about everything, this has been very difficult to broach in the past even for short-term rehab purposes. Admission and Anticipated Discharge Date Admission Date: December 08, 2023 Subjective Today her biggest concern is the low back pain around the site of her sacral ulcer. At the time of my evaluation, she had just completed physical therapy and feeling very fatigued. She desires to hold off on dialysis today Review of Systems Review of Systems: Per subjective Physical Exam Physical Exam: General: Groggy and tired-appearing but awakens and interacts, NAD Cardiovascular: RRR, no m/r/g Pulmonary: No respiratory distress, clear anteriorly Neurologic: Alert and oriented Psychiatric: Appropriate mood/affect Results & Data Results & Data Vital Signs (Past 12 Hours) Vital Signs Temp Pulse Pulse Resp BP Pulse Ox O2 Del Method 12/17/23 17:07 93 H 12/17/23 15:28 36.3 C L 84 16 105/66 95 Room Air 12/17/23 11:29 36.6 C 88 18 81/54 L 95 Room Air 12/17/23 08:09 36.2 C L 76 18 94/62 L 93 Room Air 12/17/23 08:00 Room Air 12/17/23 07:46 92 H Laboratory Results Reviewed labs from this morning with WBC stable at elevation of 15.6, hemoglobin slight downtrend to 9.4 with macrocytosis, sodium low at 130, creatinine elevated 3.8, normal potassium, glucose elevated into the 200s, phosphorus normal 4.5 PG Care Time/CCT Total # of Minutes Spent Total Time Spent with Patient: Total time spent is greater than 50% in coordination of care (as documented) at patient's floor/unit and/or counseling patient: Coding Level of Care Code 89821 SUB INP/OBS CARE 50MIN Diagnoses Acute hip pain, bilateral M25.551; M25.552 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
--- NOTE | 2023-12-18 10:32 | Nephrology Progress Note ---
Date of Service December 18, 2023 Assessment & Plan (1) ESRD (end stage renal disease): (2) Hypercalcemia: (3) Hyperkalemia: (4) Anemia: (5) Metastatic cancer to spine: (6) Sacral ulcer: Plan 73 year old with ESKD due to recurrent JEFFREY, hypercalcemia, dialyzes M,F at [facility] (2.5hr, 400/800, 2K 2Ca, F-180NR, EDW 90 kg) via R [facility] admitted with back pain. PMH of breast cancer with metastasis to bone including the lumbar spine, recurrent hypercalcemia, HFpEF, Mobitz type I second-degree AV block, dyslipidemia, AODM, HTN, GERD, and MCKENZIE. Has been having recurrent admissions over last few months with back and hip pain. CT scan of the lumbar spine on 12/08/23 showed multiple areas of skeletal metastatic lesion in the lower thoracic and lumbar spine, possible T12 vertebral pathologically fracture and moderate to severe degenerative disease. CT scan showed possible metastatic disease in liver as well. Previous imaging showed L1 vertebral body with radiolucency concerning for lytic disease/pathologic fracture and had kyphoplasty. She had steroid injection L hip joints on 11/30/2023 but she feels her pain significantly worsened since then. She has difficulty standing or making transfers. She is only comfortable while lying still on her back. She is on multiple pain medications now including fentanyl patch and her pain is just controlled. BP low, volume status acceptable. --Plan for HD tomorrow --Epogen 46655 units with next HD --continue on Nephrocaps daily Admission and Anticipated Discharge Date Admission Date: December 08, 2023 Subjective Pauline was seen and evaluated this morning. She reports overall feeling much better today, noted significant improvement in back pain. BP relatively low, volume status acceptable. Had HD . Review of Systems Review of Systems: Detailed review of system was done and pertinent positives and negatives were mentioned above. Physical Exam Constitutional: WD/WN, vitals as above + acute distress and + ill appearing Eyes: + anicteric sclerae Neck: normal visual inspection Respiratory: Auscultation: lungs clear to auscultation bilaterally Cardiovascular: RRR, no murmur, no edema Extremities: + vascular access device (Rt IJ TDC) Skin: + rash and + ulcer (sacral decubitus); n o jaundice Neurologic: no focal motor deficits and not confused Psychiatric: Orientation: alert and oriented x 3 Results & Data Vital Signs (Past 12 Hours) Vital Signs Temp Pulse Pulse Resp BP BP Pulse Ox 12/18/23 08:20 36.7 C 111 H 18 92/44 L 92 12/18/23 02:30 36.8 C 98 H 16 85/53 L 92 12/17/23 23:38 87 O2 Del Method 12/18/23 08:20 Room Air 12/18/23 02:30 Room Air 12/17/23 23:38 PG Care Time/CCT Total # of Minutes Spent Total Time Spent with Patient: Total time spent is greater than 50% in coordination of care (as documented) at patient's floor/unit and/or counseling patient: Coding Level of Care Code 48811 SUB INP/OBS CARE 2/35MIN Diagnoses ESRD (end stage renal disease) N18.6 Hypercalcemia E83.52 Hyperkalemia E87.5 Anemia D64.9 Metastatic cancer to spine C79.51 Sacral ulcer L98.429
--- NOTE | 2023-12-18 15:52 | Hospitalist Progress Note ---
Date of Service December 18, 2023 Assessment & Plan (1) Acute hip pain, bilateral: Plan: Likely bilateral hip DJD pain, as well as possibly a degree of lumbar radiculopathy. She had steroid injections, and felt worsebut now is probably having a late benefit, either from the steroid injections themselves, systemic corticosteroids, or both. Suspect her grogginess and lower blood pressures are most likely from the narcotics with steroids seem to be helping now. Will continue to wean back on the narcotics Continue Dilaudid PRN and discontinue fentanyl patch (2) 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: Plan: - CT Lumbar Spine: progressive lytic appearance T12 vertebral body, concern for additional metastasis. - Caution with opioid use given ESRD and hypotension - Steroids are likely helping with the radicular component of this probably can start to wean steroids over the next 1-2 days (3) ESRD needing dialysis: Plan: Appreciate ongoing nephrology management of dialysis Patient declines today and nephro ok with postponing to Monday 12/18 (4) Sacral ulcer: Plan: Continue wound management (5) Atrial fibrillation: Plan: - continue metoprolol Currently in sinus (6) Heart failure: Plan: - chronic and stable HFpef continue furosemide 40mg BID, metoprolol (7) Type 2 diabetes mellitus: Plan: Sugars spiked a little with her steroids, overall control given the situation is not too wildLantus was held due to lower sugars earlier in her hospital stay, but now with the steroids on boardwill resume Lantus. Will likely need to stop it once we come down on the steroids. (8) Transaminitis: Plan: Resolved (9) Breast cancer: Plan: - dx 2020; now metastatic to lung - follows with [facility] K[facility]; injections in [place] - on fulvestrant monthly; was due for injection 12/06-> ordered as a nonformulary med and will be doing on to be given Monday 12/18 - started on 10mg prednisone for hypercalcemia; plan to continue - currently on 5mg PO daily (10) Pleural effusion: Plan: - pleural effusion again noted on imaging; largely unchanged from prior - hypervolemia vs malignant effusion; could consider thoracentesis for diagnostic purposes depending on goals of care Plan VTE prophylaxis: Heparin q12 Diet - dialysis renal Disposition -right now it does not look like she would be safe at home, was denied for rehab, and patient and desire that she "not go to a half-way" Admission and Anticipated Discharge Date Admission Date: December 08, 2023 Subjective Reports that she is still having back pain primarily around the site of her sacral wound. Having some choking/coughing during lunchtimenotes this is not t ypical for her and feels this is related to poor positioning of being reclined too much. Both patient and note that patient has been having lower blood pressures, lower energy, and worsening cognition with initiation of the fentanyl patchnotes she even was having some hallucinations. They are hoping to decrease the fentanyl patch given that her pain has been improving with the steroids. Review of Systems Review of Systems: Per subjective Physical Exam Physical Exam: General: Groggy and tired-appearing but awakens and interacts, NAD, occasional choking/coughing with eating her lunch Pulmonary: No respiratory distress Neurologic: Alert and oriented Psychiatric: Appropriate mood/affect Results & Data Results & Data Vital Signs (Past 12 Hours) Vital Signs Temp Pulse Pulse Resp BP Pulse Ox O2 Del Method 12/18/23 15:17 36.4 C L 86 17 134/82 92 Room Air 12/18/23 11:38 36.4 C L 82 17 74/32 L 94 Room Air 12/18/23 08:20 36.7 C 111 H 18 92/44 L 92 Room Air 12/18/23 08:00 Room Air 12/18/23 08:00 80 Laboratory Results Glucoses in the high 200s PG Care Time/CCT Total # of Minutes Spent Total Time Spent with Patient: Total time spent is greater than 50% in coordination of care (as documented) at patient's floor/unit and/or counseling patient: Coding Level of Care Code 00232 SUB INP/OBS CARE 2/35MIN Diagnoses Acute hip pain, bilateral M25.551; M25.552 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
[2023-12-19 06:06] LABS: Hematocrit (blood only) 31.9 % (37.0-47.0); Hemoglobin 10.7 g/dl (12.0-16.0); Mean Corpuscular Hemoglobin 35.9 pg (25.0-34.0); Mean Corpuscular Hgb Conc 33.5 g/dL (32.0-36.0); Mean Platelet Volume 11.1 fL (9.4-12.4); Nucleated RBC # (auto) 0.49 K/uL (0.00-0.12); Nucleated RBC % (auto) 2.4 %; Platelet Count 185 K/uL (130-400); RDW Coefficient of Variation 17.5 % (11.5-14.5); RDW Standard Deviation 63.4 fL (36.4-46.3); Red Blood Count 2.98 M/uL (4.20-5.40); White Blood Count 20.46 K/ul (4.8-10.8)
[2023-12-19 08:51] LABS: Albumin Level 3.2 gm/dl (3.4-5.0); Bilirubin Direct 0.4 mg/dl (0-0.2); Bilirubin,Total 0.9 mg/dl (0.2-1.0)
--- NOTE | 2023-12-19 10:26 | Nephrology Progress Note ---
Date of Service December 19, 2023 Assessment & Plan (1) ESRD (end stage renal disease): Plan: * Orders for HD today entered into EHR and reviewed with wax ball molder * Pauline is tolerating HD well: Qb at goal. BP acceptable. * Outpatient HD Rx: M&F [facility] 2.5hr, 2K 2Ca, F-180NR. EDW 90 kg. Access remains R IJ TCC * Continue furosemide as Rx to encourage urine output. * Renal diet and 1.2 L daily fluid restriction. (2) Anemia: Plan: * Outpatient Rx: Venofer 100 mg IVP with HD and Micera 30 IVP q 2 weeks with HD. * Epogen [id number] units with HD today. (3) Right hip pain: Plan: * s/p steroid injection bilateral hip on 11/29 by [facility] * Fentanyl patch added * Decadron per hospitalist * US and CT reviewed. No concerning fluid collection or hematoma noted. (4) Hypercalcemia: (5) Metastatic cancer to spine: (6) Sacral ulcer: (7) Breast cancer: Admission and Anticipated Discharge Date Admission Date: December 08, 2023 Subjective No acute events overnight. No complaints this AM. Pauline was seen and evaluated d uring HD. She was slightly lethargic and seemed to have difficulty following conversation. She was oriented and answered questions appropriately. She is tolerating HD well. She denied pain. Pauline stated that she hopes to be discharged home soon. She is refusing SNF or acute rehab post discharge. Review of Systems Review of Systems: All systems reviewed & are unremarkable except as noted in HPI & below Physical Exam Constitutional: well developed, + morbidly obese and comfortable; no acute distress Eyes: no scleral abnormality and no corneal abnormality ENMT: Mouth: oral mucous membranes not dry RIJ TDC with clean exit site Neck: normal visual inspection and trachea midline Respiratory: normal respiratory effort Auscultation: lungs clear to auscultation bilaterally Cardiovascular: Rate/Rhythm: regular rate and + irregularly irregular Heart Sounds: normal S1 and normal S2 Extremities: + edema Musculoskeletal: Extremities: no cyanosis, no clubbing and no lower extremity abnormal to inspection (fullness and tenderness along the lateral aspect of the right thigh) Skin: normal turgor; no lesions Neurologic: Motor/Sensory: no tremor and no asterixis Psychiatric: Orientation: alert and oriented x 3 Results & Data Vital Signs (Past 12 Hours) Vital Signs Temp Pulse Pulse Pulse Resp BP BP 12/19/23 10:00 79 144/54 H 12/19/23 09:30 70 150/96 H 12/19/23 09:25 99 H 147/64 H 12/19/23 09:20 36.7 C 84 12/19/23 07:41 36.4 C L 97 H 20 99/39 L 12/19/23 07:33 12/19/23 06:37 97 H 12/19/23 03:31 36.7 C 92 H 16 103/64 12/19/23 01:38 78 12/19/23 01:15 12/18/23 23:09 36.5 C 87 16 105/68 Pulse Ox O2 Del Method 12/19/23 10:00 12/19/23 09:30 12/19/23 09:25 12/19/23 09:20 12/19/23 07:41 93 Room Air 12/19/23 07:33 Room Air 12/19/23 06:37 12/19/23 03:31 93 Room Air 12/19/23 01:38 12/19/23 01:15 Room Air 12/18/23 23:09 95 Room Air Laboratory Results Laboratory Results - last 24 hr 12/18/23 12/18/23 12/18/23 11:27 17:06 20:01 WBC RBC Hgb Hct MCV MCH MCHC RDW Std Deviation RDW Coeff of Amparo Plt Count MPV Absolute Nucleated RBC Nucleated RBC % (auto) Sodium Potassium Chloride Carbon Dioxide Anion Gap BUN Creatinine Est Cr Clr Drug Dosing Est GFR ( Amer) Est GFR (Non-Af Amer) BUN/Creatinine Ratio Glucose POC Glucose 267 H 261 H 254 H Calcium Phosphorus Total Bilirubin Direct Bilirubin AST ALT Alkaline Phosphatase Total Protein Albumin 12/19/23 12/19/23 12/19/23 05:21 07:13 07:53 WBC 20.46 H RBC 2.98 L Hgb 10.7 L Hct 31.9 L MCV 107.0 H MCH 35.9 H MCHC 33.5 RDW Std Deviation 63.4 H RDW Coeff of Amparo 17.5 H Plt Count 185 MPV 11.1 Absolute Nucleated RBC 0.49 H Nucleated RBC % (auto) 2.4 Sodium Cancelled Cancelled Potassium Cancelled Cancelled Chloride Cancelled Cancelled Carbon Dioxide Cancelled Cancelled Anion Gap Cancelled Cancelled BUN Cancelled Cancelled Creatinine Cancelled Cancelled Est Cr Clr Drug Dosing Cancelled Cancelled Est GFR ( Amer) Cancelled Cancelled Est GFR (Non-Af Amer) Cancelled Cancelled BUN/Creatinine Ratio Cancelled Cancelled Glucose Cancelled Cancelled POC Glucose 178 H Calcium Cancelled Cancelled Phosphorus Cancelled Cancelled Total Bilirubin Direct Bilirubin AST ALT Alkaline Phosphatase Total Protein Albumin Cancelled Cancelled 12/19/23 08:16 WBC RBC Hgb Hct MCV MCH MCHC RDW Std Deviation RDW Coeff of Amparo Plt Count MPV Absolute Nucleated RBC Nucleated RBC % (auto) Sodium Potassium Chloride Carbon Dioxide Anion Gap BUN Creatinine Est Cr Clr Drug Dosing Est GFR ( Amer) Est GFR (Non-Af Amer) BUN/Creatinine Ratio Glucose POC Glucose Calcium Phosphorus Total Bilirubin 0.9 Direct Bilirubin 0.4 H AST 33 ALT 43 Alkaline Phosphatase 239 H Total Protein 6.0 Albumin 3.2 L PG Care Time/CCT Total # of Minutes Spent Total Time Spent with Patient: Total time spent is greater than 50% in coordination of care (as documented) at patient's floor/unit and/or counseling patient: Coding Level of Care Code 86970 SUB INP/OBS CARE 3/50MIN Diagnoses ESRD (end stage renal disease) N18.6 Anemia D64.9 Right hip pain M25.551 Hypercalcemia E83.52 Metastatic cancer to spine C79.51 Sacral ulcer L98.429 Breast cancer C50.912 Breast location: unspecified site of breast Estrogen receptor status: unspecified Laterality: left Patient sex: female (7) Breast cancer Breast location: unspecified site of breast Estrogen receptor status: unspecified Laterality: left Patient sex: female Qualified Code(s): C50.912 - Malignant neoplasm of unspecified site of left female breast
[2023-12-19] MEDS ORDERED: FULVESTRANT 250 MG/5 ML SYRINGE IM ONE ×3 (14:00)
--- NOTE | 2023-12-19 14:16 | Hospitalist Progress Note ---
Date of Service December 19, 2023 Assessment & Plan (1) 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 Had been on fentanyl patch with improved pain. The fentanyl patch was weaned off over the weekend as it was causing excess sedation and there was concern it was contributing to low BP. Remains on IV dexamethasone 4mg IV q6h. Also on tylenol 1gm TID scheduled and tramadol prn. She was having severe pain today after returning from HD. Much of the pain has been attributed to her buttock decubitus ulcers. However, the radiating pain to the b/l groin, the pain with palpation over the lumbar spine and paraspinal regions, etc all suggest ongoing pain from the lumbar spine (and potentially also T12). Given the mets on imaging of her spine I consulted rad onc to see if she would be a candidate for palliative XRT. I also spoke with Dr Adame about the T12 vertebral body - he will re-eval tomorrow. He suggested getting MRI of the spine for more information. I believe that since the fentanyl patch was d/c her pain has increased. However, she is very sensitive to narcotics due to MCKENZIE, obesity, ESRD, etc. Tramadol not particularly helpful. Will hold tramadol. Resume low-dose IV dilaudid prn. Will ask palliative care to see in consult to try and find a regimen that provi cmailla pain relief but without causing the excess sedation, confusion (was hallucinating recently from fentanyl), etc. Leave steroids as is today but potentially wean tomorrow depending on how she is doing. (2) Acute hip pain, bilateral: Plan: s/p b/l intra-articular hip injections by IR on 11/30/[address] both hips thru passive ROM and she did not have pain with such today thus the injections appear to have helped suspect that her b/l groin pain is referred pain from the lumbar spine at this point may need MRI t-spine and l-spine (3) ESRD needing dialysis: Plan: Appreciate ongoing nephrology assistance s/p HD today <2 L UF removed today she looks volume contracted today due to less than optimal PO intake - not much appetite due to the ongoing pain issues will loosen her fluid restriction repeat BMP am (4) Sacral ulcer: Plan: b/l buttock decubitus ulcers severe pain from such frequent turning continue wound management will talk with the wound care team tomorrow about other methods to help control her pain from their standpoint (5) Atrial fibrillation: Plan: metoprolol is on hold due to hypotension is not on chronic anticoagulation (6) Heart failure: Plan: chronic diastolic CHF compensated via HD lasix/metoprolol on hold due to hypotension (7) Type 2 diabetes mellitus: Plan: BSGs controlled today cont lantus/cont novolog (8) Transaminitis: Plan: Resolved uncertain of etiology (9) Breast cancer: Plan: dx 2020; now metastatic to lung, bone; ?lymph nodes (based on most recent CT a/p - mild enlarged retroperitoneal nodes); ?[place] [facility] on fulvestrant monthly; given today - Monday 12/18 started on 10mg prednisone for hypercalcemia recently?? currently on 5mg PO daily (10) Pleural effusion: Plan: o2 sats stable defer on intervention for now unless 1 or both sides worsen (11) Leukocytosis: Plan: 2nd to steroids?? however, did have enterococcal UTI and 1/4 blood cx's + for GPC chains during previous admission in early November. may need repeat blood and urine cultures. (12) Hyponatremia: Plan: present since 2022 likely due to ESRD status, lasix usage, etc bmp am (13) Encephalopathy: Plan: presumed 2nd to narcotics but deserves other w/u to ensure no high ammonia level, high CO2 level, etc check ammonia, VBG, etc in am check procal, crp am consider head imaging in light of progressive, metastatic breast ca (14) MCKENZIE (nonalcoholic steatohepatitis): Plan: this will make her susceptible to the effects of narcotics check ammonia level am (15) Mobitz type 1 second degree AV block: Plan: seen on tele - no Rx needed no higher block seen (16) Hypotension: Plan: she looks volume contracted on exam she had hypotension during her early November stay as well consider midodrine hold metoprolol hold lasix is already on large amounts of stress dose steroid H/H stable follow carefully Plan VTE prophylaxis: Heparin SC q12 patient remains highly complex and quite ill pt's spouse updated at bedside care d/w rad onc (via [place]) and with ortho-spine by phone (Dr Adame) Admission and Anticipated Discharge Date Admission Date: December 08, 2023 Subjective tele overnight wnl patient had dialysis this am she returned mid-day when I came to see her I could hear her moaning even before I got into the room during my assessment she was lying in bed her nurse, Aftab, was present she complained of severe pain in her low back and in the gluteal region we asked her to roll in bed so I could look at the low back but she was unable to do so without assistance with rolling she had severe pain she continued to complain of pain - continued to moan and even cry appetite fair at best denied dyspnea she also c/o b/l groin pain that radiates from the back I visited Ms Beyer a 2nd time later in the afternoon and her spouse was present multiple questions answered plan of care reviewed Review of Systems Review of Systems: gen - fatigue, weakness, poor appetite cv - no chest pain, no orthopnea pulm - no dyspnea at rest GI - no abd pain Physical Exam Physical Exam: gen - obese, very uncomfortable due to pain, moaning, sleepy mouth - MM very dry neck - no JVD heart - RRR, s1 s2 lungs - CTA b/l abd - soft NT ND BS+; abdominal wall - ecchymoses noted on left side lower abd wall ext - pulses 2+ b/l chest - HD catheter present; clean/dry musculo - tender to palpation over the spinal elements of the lumbar spine with palpation; tender paraspinal areas b/l lumbar region; passive ROM of both hips does not cause pain no pain over cervical spine or most of the thoracic spine (some pain at junction of t-spine and l-spine) psych - sleepy Results & Data Results & Data Vital Signs (Past 12 Hours) Vital Signs Temp Pulse Pulse Pulse Pulse Resp BP 12/19/23 13:59 91 H 12/19/23 12:40 36.5 C 97 H 66 12/19/23 12:15 73 101/30 L 12/19/23 12:00 73 78/45 L 12/19/23 11:30 71 96/41 L 12/19/23 11:00 103 H 84/60 L 12/19/23 10:30 69 114/44 L 12/19/23 10:00 79 144/54 H 12/19/23 09:30 70 150/96 H 12/19/23 09:25 99 H 147/64 H 12/19/23 09:20 36.7 C 84 12/19/23 07:41 36.4 C L 97 H 20 12/19/23 07:33 12/19/23 06:37 97 H 12/19/23 03:31 36.7 C 92 H 16 BP BP Pulse Ox O2 Del Method 12/19/23 13:59 94/61 L 12/19/23 12:40 96/35 L 12/19/23 12:15 12/19/23 12:00 12/19/23 11:30 12/19/23 11:00 12/19/23 10:30 12/19/23 10:00 12/19/23 09:30 12/19/23 09:25 12/19/23 09:20 12/19/23 07:41 99/39 L 93 Room Air 12/19/23 07:33 Room Air 12/19/23 06:37 12/19/23 03:31 103/64 93 Room Air Laboratory Results Laboratory Results - last 48 hr 12/18/23 12/18/23 12/18/23 08:16 11:27 17:06 WBC RBC Hgb Hct MCV MCH MCHC RDW Std Deviation RDW Coeff of Amparo Plt Count MPV Absolute Nucleated RBC Nucleated RBC % (auto) Sodium Potassium Chloride Carbon Dioxide Anion Gap BUN Creatinine Est Cr Clr Drug Dosing Est GFR ( Amer) Est GFR (Non-Af Amer) BUN/Creatinine Ratio Glucose POC Glucose 309 H* 267 H 261 H Calcium Phosphorus Total Bilirubin Direct Bilirubin AST ALT Alkaline Phosphatase Total Protein Albumin 12/18/23 12/19/23 12/19/23 20:01 05:21 07:13 WBC 20.46 H RBC 2.98 L Hgb 10.7 L Hct 31.9 L MCV 107.0 H MCH 35.9 H MCHC 33.5 RDW Std Deviation 63.4 H RDW Coeff of Amparo 17.5 H Plt Count 185 MPV 11.1 Absolute Nucleated RBC 0.49 H Nucleated RBC % (auto) 2.4 Sodium Cancelled Cancelled Potassium Cancelled Cancelled Chloride Cancelled Cancelled Carbon Dioxide Cancelled Cancelled Anion Gap Cancelled Cancelled BUN Cancelled Cancelled Creatinine Cancelled Cancelled Est Cr Clr Drug Dosing Cancelled Cancelled Est GFR ( Amer) Cancelled Cancelled Est GFR (Non-Af Amer) Cancelled Cancelled BUN/Creatinine Ratio Cancelled Cancelled Glucose Cancelled Cancelled POC Glucose 254 H Calcium Cancelled Cancelled Phosphorus Cancelled Cancelled Total Bilirubin Direct Bilirubin AST ALT Alkaline Phosphatase Total Protein Albumin Cancelled Cancelled 12/19/23 12/19/23 12/19/23 07:53 08:16 12:48 WBC RBC Hgb Hct MCV MCH MCHC RDW Std Deviation RDW Coeff of Amparo Plt Count MPV Absolute Nucleated RBC Nucleated RBC % (auto) Sodium Potassium Chloride Carbon Dioxide Anion Gap BUN Creatinine Est Cr Clr Drug Dosing Est GFR ( Amer) Est GFR (Non-Af Amer) BUN/Creatinine Ratio Glucose POC Glucose 178 H 165 H Calcium Phosphorus Total Bilirubin 0.9 Direct Bilirubin 0.4 H AST 33 ALT 43 Alkaline Phosphatase 239 H Total Protein 6.0 Albumin 3.2 L PG Care Time/CCT Total # of Minutes Spent Total Time Spent with Patient: Total time spent is greater than 50% in coordination of care (as documented) at patient's floor/unit and/or counseling patient: Coding Level of Care Code 46949 SUB INP/OBS CARE 350MIN Diagnoses 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 M84.58XA; C79.51 Acute hip pain, bilateral M25.551; M25.552 ESRD needing dialysis N18.6; Z99.2 Sacral ulcer L98.429 Atrial fibrillation I48.91 Heart failure I50.9 Type 2 diabetes mellitus E11.9 Transaminitis R74.01 Breast cancer C50.912 Breast location: unspecified site of breast Estrogen receptor status: unspecified Laterality: left Patient sex: female Pleural effusion J90 Leukocytosis D72.829 Hyponatremia E87.1 Encephalopathy G93.40 MCKENZIE (nonalcoholic steatohepatitis) K75.81 Mobitz type 1 second degree AV block I44.1 Hypotension I95.9 (9) Breast cancer Breast location: unspecified site of breast Estrogen receptor status: unspecified Laterality: left Patient sex: female Qualified Code(s): C50.912 - Malignant neoplasm of unspecified site of left female breast
[2023-12-19] MEDS: FULVESTRANT 250 MG/5 ML SYRINGE IM SCH (15:26)
--- NOTE | 2023-12-19 15:28 | Radiation OncologyConsultation ---
Date of Consultation December 19, 2023 Assessment & Plan (1) Metastatic cancer to spine: 73-year-old female with known metastatic disease to the spine. She previously underwent kyphoplasty with a good clinical response. She currently not complaining of pain in this area. Her main complaint is in the area of her decubitus ulcer. Pain medications being followed by hospitalist. She did not tolerate the gabapentin. Would recommend evaluation by wound care. Continue alternating position to keep pressure off of the decubitus ulcer. Recommend follow-up with pain management. She continues follow-up with nephrology and receives dialysis. We will follow in the electronic medical record. Plan ATTENDING ADDENDUM: We were asked to see the patient regarding the role of palliative radiation therapy to the thoracic and lumbar spine. At this point, there is no role for palliative radiation therapy. I agree with the midlevel provider's note. Please call us with questions or concerns. History of Present Illness Reason for Consultation: Back pain Requesting Physician: Dr. Calvin Attending Physician: Phi Calvin MD History of Present Illness Ms. Beyer is a 73-year-old female with a history of primary left breast cancer who recently developed acute onset of low back pain approximately 2 weeks ago. 06/18/2021. Patient undergoes bilateral digital diagnostic mammogram and targeted bilateral ultrasound. This identified a new irregular spiculated mass measuring 4.4 x 4.1 x 3.4 cm has a palpable lesion in the left upper inner quadrant. There is a partially visualized equal density asymmetry measuring 10 x 6 mm within the right lateral posterior breast which could represent fibroglandular tissue and targeted ultrasound was performed. Targeted ultrasound of the palpable lump as pointed out by the patient in the left breast at the 11 o'clock position 8 cm from the nipple confirmed an irregular hypoechoic ill-defined mass measuring 4.1 x 3.8 cm on ultrasound. Targeted ultrasound of the left axilla shows the majority of the left axillary lymph nodes morphologically normal. One 2.5 cm lymph node in the left axilla demonstrates a normal fatty hilum and is equivocal for korina metastasis. An attempted ultrasound-guided FNA was recommended but could be difficult due to the location of the lymph node. 07/07/2021. Patient found to have a left breast mass and underwent a ultrasound- guided core biopsy of the breast mass at 11 o'clock position. This was positive for invasive ductal carcinoma grade 3, ER positive MI positive and HER2/becky negative. Biopsy was performed at [facility] in [place]. 05/22/2022. CT of the lumbar spine without IV contrast was performed following complaint of low back pain. Osteoblastic lesions are noted in the bodies of L1 and L4. There was advanced disc space narrowing at L3-L4, L4-L5 and L5-S1 with associated endplate sclerosis. There was no CT evidence of high-grade central canal stenosis. 11/05/2022. Patient undergoes CT of the abdomen and pelvis for generalized abdominal pain. This again showed a 4 cm left breast mass with few scattered osteoblastic lesions within the thoracic spine, lumbar spine and left femur that were highly suspicious for osteoblastic metastatic disease. 09/13/2023. Patient is admitted for acute back pain. Lumbar imaging showed moderate loss of height of L1 which is new compared to the CT scan from 11/05/2022. This could reflect a pathologic fracture given the sclerotic lesion on that exam. A CT of the lumbar spine was also performed. No acute fractures in the vertebral body of L1 extending to the posterior aspect of the vertebral body. There is retropulsion of approximately 4 mm. There is a fracture of the L1 transverse process. Fracture of the superior endplate of L2 without involvement of the posterior aspect of the vertebral body. Multilevel degenerative changes are appreciated. Again noted is an osteoblastic lesion of L4. Patient is under the care of medical oncology from the [facility] in [place]. She was scheduled for a Precedex shot on 09/15 treatment of hypercalcemia. Patient has additional multiple medical comorbidities. Her main complaint is acute onset of back pain starting approximately 2 weeks ago. It has been getting worse prompting her admission to the hospital. She is on pain medication and is lying fairly comfortably in the bed but has significant difficulty lying flat. Recent CT scan from yesterday because her significant pain even after a short interval. She reports the pain is a 10 out of 10 at the time of admission. She was on tramadol 50 mg p.o. 1 to 2 tablets daily but without much relief. She was seen in the ED prior to admission and was given 4 mg of morphine x 2 and a lidocaine patch along with the 1000 mg IV of acetaminophen. 09/16/2023. Kyphoplasty of L1 1 and L2 vertebral bodies. Biopsy of L1 and L2 vertebral bodies. Path report reveals: A. Bone, vertebral body of L1 (kyphoplasty and biopsy): - A single malignant gland consistent with metastatic adenocarcinoma is seen. - The epithelial cells of the single malignant glands are positive for cytokeratin CATINA and GATA3 consistent with metastatic breast adenocarcinoma in light of the patient's clinical history of adenocarcinoma of the left breast in 2020. - See comment. B. Bone, vertebral body of L2 (kyphoplasty and biopsy): - Viable bony trabeculae with intervening bone marrow revealing trilineage hematopoiesis are seen. - No tumor seen. - See comment. Patient had good response to the kyphoplasty with decreased pain in the lower back. 10/17/2023. Hospital admission for shortness of breath. Likely secondary to volume overload. 11/28/2023. Emergency room evaluation due to intractable pain. Pain on the hips bilaterally. Discharged 12/04/2023. Plans for hip injections to be performed as an outpatient. 11/30/2023. Left hip steroid injection under fluoroscopy. 11/30/2023. Right hip steroid injection under fluoroscopy. 12/08/2023. Possible admission due to back pain. Hospital admission with orthopedic consultation. Pain management consultation. She reported improvement in pain with fentanyl patch. No interventional treatment due to the sacral decubitus. She continued with nephrology and receiving dialysis. 12/08/2023. CT of the lumbar spine. 1. Multiple skeletal lesions within the lower thoracic and lumbar spine consistent with metastases. Pathologic fracture at the T12 level would be difficult to exclude. No vertebral body height loss. 2. Status post L1 and L2 kyphoplasty. Stable postprocedural appearance. 3. Moderate to severe multilevel degenerative changes within the lumbar spine. Suboptimal evaluation of central canal and neural foramen given CT technique. 11/09/2023. CT of the abdomen pelvis. 1. No bowel obstruction. 2. No significant change since prior CT. Cardiomegaly with moderate right and small left pleural effusions and mild edema. 3. Several left ureterovesical junction calculi, similar to prior exam. No hydronephrosis. Bilateral nephrolithiasis. 4. Multiple osseous metastases with pathologic L1 and L2 fractures status post kyphoplasty. Additional lesions within the lower thoracic and lumbar spine. 5. Heterogeneity of the liver with nodularity liver surface, similar to prior exam. This remains nonspecific and could reflect cirrhosis or metastatic disease. 12/11/2023. Soft tissue ultrasound. No loculated fluid collection within the right hip. 12/19/2023. Radiation oncology consultation. Patient is seen to evaluate for possible palliative radiation therapy. She is lying in bed propped up to keep pressure away from her lower back. She has developed a decubitus ulcer. Her is with her here today. She states that this is her main complaint. She has increased pain if she is lying on her back and there is pressure on the decubitus. She is not complaining of pain in the upper lumbar region or thoracic spine. She did not tolerate gabapentin. Allergies Allergy/AdvReac Type Severity Reaction Status Date / Time amoxicillin Allergy Severe LIPS Verified 12/08/23 19:52 SWELLED, "RED ALL OVER" doxycycline Allergy Severe LIPS Verified 12/08/23 19:52 SWELLED, "RED ALL OVER". cephalexin [From Keflex] Allergy Intermediate skin Verified 12/08/23 19:52 starts to peel off sulfamethoxazole Allergy Unknown CAN'T Verified 12/08/23 19:52 [From Bactrim] REMEMBER trimethoprim [From Bactrim] Allergy Unknown CAN'T Verified 12/08/23 19:52 REMEMBER atorvastatin AdvReac Intermediate Myalgia Verified 12/08/23 19:52 Home Medications Medication Instructions Recorded Confirmed Type omega-3 fatty acids 1,000 mg 2,000 mg (2 x 1,000 mg) PO BID 07/19/22 12/08/23 Rx capsule #360 caps allopurinol 100 mg tablet 50 mg (1/2 x 100 mg) PO DAILY #45 06/28/23 12/08/23 Rx tabs furosemide 40 mg tablet 40 mg PO BID #180 tabs 06/28/23 12/08/23 Rx insulin aspart U-100 100 unit/mL See Rx Instructions subcut 06/28/23 12/08/23 Rx (3 mL) subcutaneous pen (Novolog DIRECTED #135 mL FlexPen U-100 Insulin aspart) metoprolol succinate 25 mg 25 mg PO DAILY #90 tabs 06/28/23 12/08/23 Rx tablet,extended release 24 hr venlafaxine 75 mg capsule,extended 75 mg PO DAILY #90 caps 06/28/23 12/08/23 Rx release 24 hr insulin glargine 100 unit/mL (3 10 unit subcut BID 09/13/23 12/08/23 History mL) subcutaneous pen (Lantus Solostar U-100 Insulin) ondansetron HCl 4 mg tablet 4 mg PO Q4H PRN nausea and 10/05/23 12/08/23 Rx vomiting #30 tabs oxycodone 5 mg tablet 5 mg PO Q4H PRN pain #30 tabs 10/05/23 12/08/23 Rx tramadol 50 mg tablet 50 mg PO Q6H PRN Pain #60 tabs 11/25/23 12/08/23 Rx acetaminophen 325 mg capsule 650 mg PO QID PRN Pain 12/08/23 12/08/23 History cyanocobalamin (vitamin B-12) 1,000 mcg PO DAILY 12/08/23 12/08/23 History 1,000 mcg tablet (Vitamin B-12) lidocaine 5 % topical patch 1 patch topical DAILY PRN Pain 12/08/23 12/08/23 History prednisone 10 mg tablet 5 mg PO DAILY 12/08/23 12/08/23 History Patient History Medical History 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 (09/13/23) Intractable back pain CKD (chronic kidney disease) stage V requiring chronic dialysis Elevated troponin Anemia Iron deficiency anemia (HFpEF) heart failure with preserved ejection fraction Mobitz type 1 second degree AV block Breast cancer diagnosed 2020 Statin myopathy Hyperuricemia Crystal arthropathy Candidal intertrigo Chronic stasis dermatitis Dyslipidemia Seborrheic dermatitis Type 2 diabetes mellitus HTN (hypertension) GERD (gastroesophageal reflux disease) MCKENZIE (nonalcoholic steatohepatitis) Surgical History History of tonsillectomy and adenoidectomy Hx of cholecystectomy History of appendectomy Humerus fracture surgical repair Family History Father Depression Diabetes Mother Hypertension Kidney stones Gallbladder disease Denies family history of Ovarian cancer Prostate cancer Myocardial infarction Breast cancer Colorectal cancer Social History Smoking Status: Never smoker Second Hand Exposure: No; Do You Dip or Chew Tobacco: No; Hx Alcohol Use: No Hx Substance Use: No Preferred Language: [place] Communication Ability: Effective Visual Impairment: Limited Hearing Ability: Normal Business System Consultant Required: No Beliefs That Will Affect Care: None marital status: Current Living Situation: Significant Other Current Living Situation Comment: lives at home with and caregiver 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 Currently propped on her left side. Eyes: PERRL, conjunctivae normal, anicteric sclerae ENMT: Ears: no hearing impairment Neck: trachea midline, no thyromegaly Respiratory: normal respiratory effort, lungs clear to auscultation Cardiovascular: RRR, no murmur, no edema Gastrointestinal (Abdomen): normal bowel sounds, soft, nontender, no hepatosplenomegaly Skin: no rashes, warm and dry Patient has a large decubitus ulcer. This is approximately 5 cm in size. There are areas of dried blood. Currently appears somewhat superficial. Psychiatric: A+Ox3, euthymic affect Lymphatic: no cervical or axillary lymphadenopathy Results (Rad Onc) Imaging Studies: were reviewed and pertinent findings noted in HPI Time Spent Midlevel I spent [15] minutes in preparation for this follow up consultation including reviewing all the clinical records, reviewing laboratory studies, pathology reports and imaging results. I spent [25] minutes with direct face to face interaction with the patient and/or family including performing a physical exam and answering all questions. I spent [10] minutes documenting this patient's visit. Attending I spent 10 minutes in preparation for this consultation including reviewing all the clinical records, reviewing laboratory studies, pathology reports and imaging results. I spent 10 minutes with direct face to face interaction with the patient and/or family including performing a physical exam and answering all questions. I spent 10 minutes documenting this patient's visit. PG Care Time/CCT Total # of Minutes Spent Total Time Spent with Patient: Total time spent is greater than 50% in coordination of care (as documented) at patient's floor/unit and/or counseling patient: Coding Level of Care Code 44614 INT INP/OBS CARE 3/MIN Diagnoses Metastatic cancer to spine C79.51
[2023-12-19] MEDS: HYDROmorphone INJ 0.5 MG/0.5 ML SYR IV PRN (15:46)
[2023-12-20 05:41] LABS: Hematocrit (blood only) 30.2 % (37.0-47.0); Hemoglobin 10.2 g/dl (12.0-16.0); Mean Corpuscular Hemoglobin 35.8 pg (25.0-34.0); Mean Corpuscular Hgb Conc 33.8 g/dL (32.0-36.0); Mean Platelet Volume 11.3 fL (9.4-12.4); Nucleated RBC # (auto) 0.08 K/uL (0.00-0.12); Nucleated RBC % (auto) 0.4 %; Platelet Count 116 K/uL (130-400); RDW Coefficient of Variation 18.2 % (11.5-14.5); RDW Standard Deviation 62.2 fL (36.4-46.3); Red Blood Count 2.85 M/uL (4.20-5.40)
[2023-12-20 05:59] LABS: BUN Creatinine Ratio 14.9 (10-20); Calcium 8.4 mg/dl (8.6-10.3); Creatinine Clr Calc Pharmacy 13.5 ml/min; Est GFR (African American) 13.5 ml/min; Est GFR (Non-African American) 11.6 ml/min; Potassium 4.3 mmol/L (3.5-5.1)
[2023-12-20 09:21] LABS: C Reactive Protein 3.29 mg/dl (0-0.5)
[2023-12-20 09:46] LABS: Base Excess VBG 1.3 mEq/L; HCO3 VBG 28 mmol/L; Oxygen Saturation VBG < 60.0 %; PCO2 VBG 50 mmHg (38-50); PO2 VBG 27 mmHg; pH VBG 7.35 (7.36-7.41)
--- NOTE | 2023-12-20 10:08 | Nephrology Progress Note ---
Date of Service December 20, 2023 Assessment & Plan (1) ESRD (end stage renal disease): Plan: * Completed HD yesterday with adequate UF and clearance * TDC functioning well for treatment * Outpatient HD Rx: M&F [facility] Veguita 2.5hr, 2K 2Ca, F-180NR. EDW 90 kg. Access remains R IJ TCC. * Continue furosemide as Rx to encourage urine output. * Renal diet and 1.2 L daily fluid restriction. (2) Anemia: Plan: * Outpatient Rx: Venofer 100 mg IVP with HD and Micera 30 IVP q 2 weeks with HD. * Epogen 10404 units with HD yesterday. (3) Hypotension: Plan: * Antihypertensives held * Furosemide held * Volume status acceptable (4) Metastatic cancer to spine: (5) Sacral ulcer: (6) Breast cancer: Admission and Anticipated Discharge Date Admission Date: December 08, 2023 Subjective No acute events overnight. Pauline was seen and evaluated with Adele at the bedside. Pauline was resting comfortably without pain at the time of assessment. She tolerated HD well yesterday. No complications with treatment. Review of Systems Review of Systems: All systems reviewed & are unremarkable except as noted in HPI & below Physical Exam Constitutional: well developed, + morbidly obese and comfortable; no acute distress Eyes: no scleral abnormality and no corneal abnormality ENMT: Mouth: oral mucous membranes not dry Neck: normal visual inspection and trachea midline Respiratory: normal respiratory effort Auscultation: lungs clear to auscultation bilaterally Cardiovascular: Rate/Rhythm: regular rate and regular rhythm Heart Sounds: normal S1 and normal S2 Extremities: no edema Musculoskeletal: Extremities: no cyanosis and no clubbing Skin: normal turgor; no jaundice Neurologic: Motor/Sensory: no tremor and no asterixis Psychiatric: Orientation: alert and oriented x 3 Results & Data Vital Signs (Past 12 Hours) Vital Signs Temp Pulse Pulse Resp BP BP Pulse Ox 12/20/23 07:52 36.6 C 76 20 99/67 L 98 12/20/23 03:50 36.4 C L 104 H 20 92/54 L 97 12/20/23 00:04 12/20/23 00:03 88 12/19/23 22:40 36.3 C L 91 H 16 100/62 93 O2 Del Method O2 Flow Rate 12/20/23 07:52 Nasal Cannula 2 12/20/23 03:50 Nasal Cannula 2 12/20/23 00:04 Nasal Cannula 2 12/20/23 00:03 12/19/23 22:40 Room Air Laboratory Results Laboratory Results - last 24 hr 12/19/23 12/19/23 12/19/23 12:48 17:06 20:09 WBC RBC Hgb Hct MCV MCH MCHC RDW Std Deviation RDW Coeff of Amparo Plt Count MPV Absolute Nucleated RBC Nucleated RBC % (auto) VBG pH VBG pCO2 VBG pO2 VBG HCO3 VBG O2 Saturation VBG Base Excess Sodium Potassium Chloride Carbon Dioxide Anion Gap BUN Creatinine Est Cr Clr Drug Dosing Est GFR ( Amer) Est GFR (Non-Af Amer) BUN/Creatinine Ratio Glucose POC Glucose 165 H 138 H 151 H Calcium Ammonia C-Reactive Protein Procalcitonin 12/20/23 12/20/23 12/20/23 05:20 08:22 09:27 WBC 19.20 H RBC 2.85 L Hgb 10.2 L Hct 30.2 L MCV 106.0 H MCH 35.8 H MCHC 33.8 RDW Std Deviation 62.2 H RDW Coeff of Amparo 18.2 H Plt Count 116 L MPV 11.3 Absolute Nucleated RBC 0.08 Nucleated RBC % (auto) 0.4 VBG pH 7.35 L VBG pCO2 50 VBG pO2 27 VBG HCO3 28 VBG O2 Saturation < 60.0 VBG Base Excess 1.3 Sodium 129 L Potassium 4.3 Chloride 93 L Carbon Dioxide 24 Anion Gap 12 H BUN 54 H Creatinine 3.62 H Est Cr Clr Drug Dosing 13.5 Est GFR ( Amer) 13.5 Est GFR (Non-Af Amer) 11.6 BUN/Creatinine Ratio 14.9 Glucose 187 H POC Glucose 212 H Calcium 8.4 L Ammonia 23.0 C-Reactive Protein 3.29 H Procalcitonin Pending PG Care Time/CCT Total # of Minutes Spent Total Time Spent with Patient: Total time spent is greater than 50% in coordination of care (as documented) at patient's floor/unit and/or counseling patient: Coding Level of Care Code 90092 SUB INP/OBS CARE 3/50MIN Diagnoses ESRD (end stage renal disease) N18.6 Anemia D64.9 Hypotension I95.9 Metastatic cancer to spine C79.51 Sacral ulcer L98.429 Breast cancer C50.912 Breast location: unspecified site of breast Estrogen receptor status: unspecified Laterality: left Patient sex: female (4) Breast cancer Breast location: unspecified site of breast Estrogen receptor status: unspecified Laterality: left Patient sex: female Qualified Code(s): C50.912 - Malignant neoplasm of unspecified site of left female breast
[2023-12-20] MEDS ORDERED: HYDROmorphone HCL 2 MG TAB PO PRN (16:34)
--- NOTE | 2023-12-20 17:08 | Hospitalist Progress Note ---
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 Had been on fentanyl patch with improved pain. The fentanyl patch was weaned off over the weekend as it was causing excess sedation, confusion and potentially low BP. Remains on IV dexamethasone 4mg IV q6h. Try weaning to BID dosing later today. Also on tylenol 1gm TID scheduled. Radiating pain to the b/l groin sounds like radicular pain from the l-spine -- this symptom is improved. She denies significant low back pain today. Hold off on ortho-spine re-eval for now unless the pain recurs over the expected location of T12. Rad onc saw patient yesterday; no palliative radiation for now. Appreciate palliative care consult and recs for pain management. (3) Acute hip pain, bilateral: Plan: improved s/p b/l intra-articular hip injections by IR on 11/30/23 both hips can be placed thru passive ROM with much improved pain thus the injections appear to have helped suspect that her b/l groin pain is referred pain from the lumbar spine at this point (4) ESRD needing dialysis: Plan: Appreciate ongoing nephrology assistance s/p HD yesterday HD tomorrow repeat BMP am (5) Atrial fibrillation: Plan: metoprolol is on hold due to hypotension did convert back to a.fib this am but is rate controlled cont to monitor carefully is not on chronic anticoagulation - uncertain why (6) Heart failure: Plan: chronic diastolic CHF compensated via HD lasix/metoprolol on hold (7) Type 2 diabetes mellitus: Plan: BSGs uncontrolled today cont lantus/cont novolog but increase lantus to 7 units (8) Transaminitis: Plan: Resolved uncertain of etiology (9) Breast cancer: Plan: dx 2020; now metastatic to lung, bone; ?lymph nodes (based on most recent CT a/p - mild enlarged retroperitoneal nodes); ?liver follows with [facility]; injections in [place] on fulvestrant monthly; given yesterday, Monday 12/18 started on 10mg prednisone for hypercalcemia recently?? currently on 5mg PO daily at baseline (10) Pleural effusion: Plan: o2 sats stable defer on intervention for now unless 1 or both sides worsen (11) Leukocytosis: Plan: 2nd to steroids?? however, did have enterococcal UTI and 1/4 blood cx's + for GPC chains during previous admission in early November. sent blood cxc's this adm repeat u/a and urine culture also ordered (12) Hyponatremia: Plan: present since 2022 likely due to ESRD status, lasix usage, etc bmp am (13) Encephalopathy: Plan: presumed 2nd to narcotics ammonia wnl VBG without hypercapnia crp 3 procal negative consider head imaging in light of progressive, metastatic breast ca (14) MCKENZIE (nonalcoholic steatohepatitis): Plan: this will make her susceptible to the effects of narcotics ammonia wnl (15) Mobitz type 1 second degree AV block: Plan: seen on tele - no Rx needed no higher block seen (16) Hypotension: Plan: she continues to look volume contracted on exam she had hypotension during her early November stay as well consider midodrine pre-HD hold metoprolol hold lasix is already on large amounts of stress dose steroid H/H stable Plan VTE prophylaxis: Heparin SC q12 but platelets fell today -- is in the time frame where HIT is a possibility repeat cbc tomorrow if platelets cont to drop then obtain HIT ab pt's spouse updated at bedside care d/w palliative care & wound care today Admission and Anticipated Discharge Date Admission Date: December 08, 2023 Subjective tele overnight - flipped into a.fib this am but rates controlled (<100) patient much more comfortable today dilaudid IV is helping it makes her tired/sleepy but the pain is much better with such staff continue to reposition her frequently to take pressure off he buttock wounds eating fair denies low back pain denies b/l groin pain today denies hip pain denies abd pain Review of Systems Review of Systems: gen - tired, weak - but overall comfort is better today cv - no cp, no orthopnea pulm - no dyspnea during the visit, but staff report she gets dyspneic when in pain or moving around GI - no N/V Physical Exam Physical Exam: gen - obese, sleepy but does wake easily and answers questions; much more comfortable today mouth - MM still dry neck - no JVD heart - RRR, s1 s2, 1/6 LUCIANO LSB lungs - CTA b/l abd - soft NT ND BS+ ext - pulses 2+ b/l, no edema chest - HD catheter present; clean/dry musculo - did not examine the back today psych - sleepy Results & Data Results & Data Vital Signs (Past 12 Hours) Vital Signs Temp Pulse Pulse Resp BP Pulse Ox O2 Del Method 12/20/23 15:14 36.5 C 85 20 115/71 100 Nasal Cannula 12/20/23 14:00 77 12/20/23 11:35 98 12/20/23 11:25 36.4 C L 84 20 111/67 96 Room Air 12/20/23 10:00 Nasal Cannula 12/20/23 07:52 36.6 C 76 20 99/67 L 98 Nasal Cannula 12/20/23 05:58 81 O2 Flow Rate 12/20/23 15:14 2 12/20/23 14:00 12/20/23 11:35 12/20/23 11:25 12/20/23 10:00 2 12/20/23 07:52 2 12/20/23 05:58 Laboratory Results Laboratory Results - last 24 hr 12/19/23 12/19/23 12/20/23 17:06 20:09 05:20 WBC 19.20 H RBC 2.85 L Hgb 10.2 L Hct 30.2 L MCV 106.0 H MCH 35.8 H MCHC 33.8 RDW Std Deviation 62.2 H RDW Coeff of Amparo 18.2 H Plt Count 116 L MPV 11.3 Absolute Nucleated RBC 0.08 Nucleated RBC % (auto) 0.4 VBG pH VBG pCO2 VBG pO2 VBG HCO3 VBG O2 Saturation VBG Base Excess Sodium 129 L Potassium 4.3 Chloride 93 L Carbon Dioxide 24 Anion Gap 12 H BUN 54 H Creatinine 3.62 H Est Cr Clr Drug Dosing 13.5 Est GFR ( Amer) 13.5 Est GFR (Non-Af Amer) 11.6 BUN/Creatinine Ratio 14.9 Glucose 187 H POC Glucose 138 H 151 H Calcium 8.4 L Ammonia C-Reactive Protein 3.29 H Procalcitonin 12/20/23 12/20/23 12/20/23 08:22 09:27 12:04 WBC RBC Hgb Hct MCV MCH MCHC RDW Std Deviation RDW Coeff of Amparo Plt Count MPV Absolute Nucleated RBC Nucleated RBC % (auto) VBG pH 7.35 L VBG pCO2 50 VBG pO2 27 VBG HCO3 28 VBG O2 Saturation < 60.0 VBG Base Excess 1.3 Sodium Potassium Chloride Carbon Dioxide Anion Gap BUN Creatinine Est Cr Clr Drug Dosing Est GFR ( Amer) Est GFR (Non-Af Amer) BUN/Creatinine Ratio Glucose POC Glucose 212 H 286 H Calcium Ammonia 23.0 C-Reactive Protein Procalcitonin 0.48 12/20/23 17:02 WBC RBC Hgb Hct MCV MCH MCHC RDW Std Deviation RDW Coeff of Amparo Plt Count MPV Absolute Nucleated RBC Nucleated RBC % (auto) VBG pH VBG pCO2 VBG pO2 VBG HCO3 VBG O2 Saturation VBG Base Excess Sodium Potassium Chloride Carbon Dioxide Anion Gap BUN Creatinine Est Cr Clr Drug Dosing Est GFR ( Amer) Est GFR (Non-Af Amer) BUN/Creatinine Ratio Glucose POC Glucose 214 H Calcium Ammonia C-Reactive Protein Procalcitonin PG Care Time/CCT Total # of Minutes Spent Total Time Spent with Patient: Total time spent is greater than 50% in coordination of care (as documented) at patient's floor/unit and/or counseling patient: Coding Level of Care Code 85245 SUB INP/OBS CARE 3/50MIN Diagnoses Decubitus ulcer of buttock, unstageable L89.300 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 M84.58XA; C79.51 Acute hip pain, bilateral M25.551; M25.552 ESRD needing dialysis N18.6; Z99.2 Atrial fibrillation I48.91 Heart failure I50.9 Type 2 diabetes mellitus E11.9 Transaminitis R74.01 Breast cancer C50.912 Breast location: unspecified site of breast Estrogen receptor status: unspecified Laterality: left Patient sex: female Pleural effusion J90 Leukocytosis D72.829 Hyponatremia E87.1 Encephalopathy G93.40 MCKENZIE (nonalcoholic steatohepatitis) K75.81 Mobitz type 1 second degree AV block I44.1 Hypotension I95.9 (9) Breast cancer Breast location: unspecified site of breast Estrogen receptor status: unspecified Laterality: left Patient sex: female Qualified Code(s): C50.912 - Malignant neoplasm of unspecified site of left female breast
--- NOTE | 2023-12-20 18:46 | Palliative Care Consultation ---
Date of Consultation December 20, 2023 Assessment & Plan (1) Bilateral buttock pain: d/t bilat sacral ulcer pt is unable to offload specialty mattress suggested, advised by nursing it is on order and expected delivery later today for pain: this does not appear to be cancer related pain will increase venlafaxine to 75mg and 37.5mg daily dose (long acting formula does not come in 100mg ER) add dilaudid 1mg PO mild pain, 2mg PO moderate to severe pain and 0.25mg IV very severe pain or prior to wound care will ask pharmacy about topical morphine gel options (2) Weakness generalized: multi factorial deconditioning declining 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 Both are clear and their intentions to return home following this admission. Genesis is clear that she does not want to seek any placement in a retirement or acute rehab. She is amenable to a return home with the addition of home health care nurses for ongoing wound care management as well as referral to the wound care clinic. Her is willing to learn how to change her dressings and participate in her wound care with ongoing supe rvision and guidance from the home care nurses. They both note this is a different plan than when they initially returned home last admission without any referrals to home health or the wound care clinic. We will need to speak with her primary oncologist, Dr. Holli Calvert MD/[facility]. Pauline's is very concerned about the progression of her ulcer during this admission. She is very careful with patient's care at home and notes that this wound did not begin in the home setting. She is frustrated by the rapidness of its progression and worries that it may take a very long time to heal and also expressed concerns about the potential for it not to heal. We discussed options and methods to help improve wound healing. I will ask nutrition to come by and see her, Chucky Jones, to determine if there are other supplements we can add to her diet in an kidney friendly manner to boost her protein and help optimize her nutrition. We will pursue obtaining a specialty mattress to help offset the pressure because she is not able to offload pressure on her own and she is unable to turn [id number]. I have asked her to continue working physical therapy to the best of her abilities on a daily basis and to also asked them to give her some in bed exercises to perform for both her lower and upper extremities. CODE STATUS was also discussed. At this time she wishes to remain a full code and has not really considered options other than this. She states that she has a relatively good quality of life and enjoys her time at home. They have several animals including 11 dogs, mini horse, and other animals. She enjoys caring for them and having them around her through the day. 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 She and her have known each other for nearly 50 years and has been for the last 4. At this time, she wants to continue trying any and all interventions possible to try and improve her overall health and help her recover to her prior to admission baseline, and for now, she feels that she can benefit from a trial of CPR in hopes that it would allow her to recover to her prior to admission baseline status. (4) Palliative care by specialist: Met with pt/family. Provided overview of Palliative Medicine, a subspecialty that provides specialized medical care for people living with a serious illness by offering a focus on quality of life. Palliative Medicine is often conflated with hospice: I advised patient/family that Palliative and hospice can be partners but we are not the same. It is important to understand the difference so that we may be informed, and not afraid. Palliative Medicine works to improve QOL through reduction of symptom burden/more control over their illness, for both the patient and family. Palliative medicine clinicians are board certified, specially-trained and another member of the patient's medical care team. We often provide an extra layer of support because our care is based on the needs of the patient, not the prognosis; as such, it's appropriate at any age/advancing stage of a serious illness and can be provided along with curative treatment. Palliative Medicine clinicians are also trained in advanced communication methodologies, to facilitate complex discussions about advanced illness planning, which are needed to help assure that the treatment choices match the patient's goals, aka delivering Goal Concordant care. Finally, we discussed that hospice is a visiting nurse service that focuses on care delivered at the very end of life for patients with terminal illness, with life expectancy less than 6 month. (5) Metastatic cancer to spine: (6) Sacral ulcer: (7) Malignant neoplasm of breast metastatic to bone: Plan * As noted above, changes to pain management regimen to help improve her pain control * Will try to reach her oncology team at [facility] for further discussion * Her wishes at this time are to proceed along the current path of care, remain a full code, and pursue continued therapy and interventions for her wound management with the hopes of this healing in the future. * She is not interested in any option other than returning home but is willing to accept that return home with the addition of home health nursing for assistance with wound care management and ongoing assessment as well as referral to the wound care clinic for ongoing follow-up. * I have offered her ongoing follow-up in the outpatient palliative medicine clinic as well to continue to assist with her pain and symptom management. She is willing to do so my contact information was provided to both her and . Thank you for allowing us to participate in the ongoing care of this patient. Please don't hesitate to call or page with any additional concerns. Dr. Katiana Sewell DNP Director, Palliative Care History of Present Illness Reason for Consultation: stage 4 breast ca; severe buttock/back pain Attending Physician: Phi Calvin MD History of Present Illness Pauline is a 73yo female admitted from home with worsening bilat hip pain who was found to have 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. The CT Lumbar Spine revealed progressive lytic appearance T12 vertebral body, concern for additional metastasis. Ortho spine consulted. Pauline has a past medical history of breast cancer, DM2, ESRD on HD, MCKENZIE, atrial fibrillation, CHF, GERD. She came to ED c/o severe, progressive bilat hip pain with declining with ambulation. She was previously admitted from 11/27 to 12/03 after missed HD session and ongoing acute on chronic B/L hip pain. She underwent IR directed b/l intraarticular injections 11/30/23 without improvement in pain. She tells me that upon returning home she the pain continued to worsen and significant worsening of her mobility. She attends [facility] She has metastatic breast cancer with bony mets and is followed by Dr Holli Calvert at [facility] Leandro/tel [phone]. She had a prior L1 - L2 pathologic fx treated with kyphoplasty by Dr Adame last year. She was seen by Dr Adame this admission and he noted: "Assessment possible metastatic disease to the spine. Plan at this time her back pain is well-controlled. I would not recommend any surgical intervention particularly in light of her sacral ulcers. If she does not continue to progress to have worsening symptoms MRI of the spine would be reasonable. Otherwise recommend physical therapy as tolerated." Pauline is seen bedside with her present She tells me her pain is significant and poorly controlled. In the past she used Darvocet with excellent relief but is aware this drug is no longer available. She has had trouble with every opioid tried today: MS made her nauseated and confused, fentanyl patch was overly sedating even at lower doses and became very confused and somnolent. Oxycodone made her fatigued and sedated but did not help pain much. Dilaudid helps a little but still sedates her. Tylenol "does nothing" even at higher doses. Motrin used cautiously with her renal issues and GERD. Unfortunately during the initial admission a pressure ulcer was noted on bilat buttocks. Pauline's is very upset about this, noting that Pauline did not come to the hospital with the ulcer and it developed her first three days here while she lay on an ED stretcher waiting for a room and "no one came to turn her even once and she was so weak she couldn't move herself. No one even checked her skin or looked for that kind of stuff. I'm the one who saw it the day they moved her up to this room and I pointed it out to the staff." They were dc home without home health nursing and had not been seen at wound clinic. This ulcer has now progressed and it is noted on chart review that there were multiple times when pt did not allow assessment of the wound. It has been challenging to determine when it began and how it has been progressing but at this point it is rather severe and requires daily dressings. Pauline remains on [facility] dialysis. appetite is stable for now, she is tolerating reg textures and no choking per her report. she is tired and unable to reposition herself. she has been occasionally working with PT to recover mobility and walked from bed to recliner and commode. She is clear the only dc plan option is back home. Allergies Allergy/AdvReac Type Severity Reaction Status Date / Time amoxicillin Allergy Severe LIPS Verified 12/08/23 19:52 SWELLED, "RED ALL OVER" doxycycline Allergy Severe LIPS Verified 12/08/23 19:52 SWELLED, "RED ALL OVER". cephalexin [From Keflex] Allergy Intermediate skin Verified 12/08/23 19:52 starts to peel off sulfamethoxazole Allergy Unknown CAN'T Verified 12/08/23 19:52 [From Bactrim] REMEMBER trimethoprim [From Bactrim] Allergy Unknown CAN'T Verified 12/08/23 19:52 REMEMBER atorvastatin AdvReac Intermediate Myalgia Verified 12/08/23 19:52 Home Medications Medication Instructions Recorded Confirmed Type omega-3 fatty acids 1,000 mg 2,000 mg (2 x 1,000 mg) PO BID 07/19/22 12/08/23 Rx capsule #360 caps allopurinol 100 mg tablet 50 mg (1/2 x 100 mg) PO DAILY #45 06/28/23 12/08/23 Rx tabs furosemide 40 mg tablet 40 mg PO BID #180 tabs 06/28/23 12/08/23 Rx insulin aspart U-100 100 unit/mL See Rx Instructions subcut 06/28/23 12/08/23 Rx (3 mL) subcutaneous pen (Novolog DIRECTED #135 mL FlexPen U-100 Insulin aspart) metoprolol succinate 25 mg 25 mg PO DAILY #90 tabs 06/28/23 12/08/23 Rx tablet,extended release 24 hr venlafaxine 75 mg capsule,extended 75 mg PO DAILY #90 caps 06/28/23 12/08/23 Rx release 24 hr insulin glargine 100 unit/mL (3 10 unit subcut BID 09/13/23 12/08/23 History mL) subcutaneous pen (Lantus Solostar U-100 Insulin) ondansetron HCl 4 mg tablet 4 mg PO Q4H PRN nausea and 10/05/23 12/08/23 Rx vomiting #30 tabs oxycodone 5 mg tablet 5 mg PO Q4H PRN pain #30 tabs 10/05/23 12/08/23 Rx tramadol 50 mg tablet 50 mg PO Q6H PRN Pain #60 tabs 11/25/23 12/08/23 Rx acetaminophen 325 mg capsule 650 mg PO QID PRN Pain 12/08/23 12/08/23 History cyanocobalamin (vitamin B-12) 1,000 mcg PO DAILY 12/08/23 12/08/23 History 1,000 mcg tablet (Vitamin B-12) lidocaine 5 % topical patch 1 patch topical DAILY PRN Pain 12/08/23 12/08/23 History prednisone 10 mg tablet 5 mg PO DAILY 12/08/23 12/08/23 History Patient History Medical History (Updated 12/20/23 @ 19:21 by Katiana Sewell DNP) Malignant neoplasm of breast metastatic to bone Palliative care by specialist Advanced care planning/counseling discussion Weakness generalized Bilateral buttock pain 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 (09/13/23) Intractable back pain CKD (chronic kidney disease) stage V requiring chronic dialysis Elevated troponin Anemia Iron deficiency anemia (HFpEF) heart failure with preserved ejection fraction Mobitz type 1 second degree AV block Breast cancer diagnosed 2020 Statin myopathy Hyperuricemia Crystal arthropathy Candidal intertrigo Chronic stasis dermatitis Dyslipidemia Seborrheic dermatitis Type 2 diabetes mellitus HTN (hypertension) GERD (gastroesophageal reflux disease) MCKENZIE (nonalcoholic steatohepatitis) Surgical History History of tonsillectomy and adenoidectomy Hx of cholecystectomy History of appendectomy Humerus fracture surgical repair Family History Father Depression Diabetes Mother Hypertension Kidney stones Gallbladder disease Denies family history of Ovarian cancer Prostate cancer Myocardial infarction Breast cancer Colorectal cancer Social History Smoking Status: Never smoker Second Hand Exposure: No; Do You Dip or Chew Tobacco: No; Hx Alcohol Use: No Hx Substance Use: No Preferred Language: Mongolian Communication Ability: Effective Visual Impairment: Limited Hearing Ability: Normal Master Sonar Technician Required: No Beliefs That Will Affect Care: None marital status: Current Living Situation: Significant Other Current Living Situation Comment: lives at home with and caregiver 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 Feels Safe at Home: Yes Childhood Exposure to Second-Hand Smoke: No Diet: regular Dental Care, Regularly: Yes Physical Activity Frequency: Does not Exercise Seatbelt Use: never Sunscreen Use: No Assistive Devices: Scooter/Electric Scooter, Walker and Wheelchair Review of Systems Review of Systems: All systems reviewed & are unremarkable except as noted in Subjective Physical Exam Constitutional: + ill appearing, + physical limitations, + frail appearing and + malnourished Eyes: PERRL and EOM intact bilaterally ENMT: Mouth: + muffled voice, + dry oral mucous membranes and + poor dentition Neck: trachea midline, no thyromegaly + short neck Thyroid: normal thyroid Respiratory: normal respiratory effort, able to speak in complete sentences and symmetric chest movement Auscultation: + diminished lung sounds and + crackles Cardiovascular: Rate/Rhythm: regular rate and regular rhythm Heart Sounds: normal S1 and normal S2 Palpation: normal PMI Extremities: + varicosities venous insuff changes BLE, trace edema Gastrointestinal (Abdomen): Inspection/Auscultation: + abdomen distended, normal bowel sounds and + significant pannus Percussion/Palpation: abdomen soft and normal to percussion Musculoskeletal: signif deconditioning and generalized weakness Skin: + turgor decreased, + skin tightening, + dry skin and + ecchymosis Neurologic: PERRL, EOMI, accommodation nl, no face palsy, no dysarthria AAOx3 Psychiatric: Orientation: alert and oriented x 3 Apperance: appropriately dressed and appropriately groomed Eye Contact: + fair eye contact Speech: normal rate/rhythm/volume of speech Affect: + depressed affect Mood: + depressed mood Thought Process: linear/logical thought process Thought Content: + loneliness Suicidal Thoughts: denies suicidal thoughts, denies suicidal plan and denies suicidal intent Cognition: recent memory grossly intact, remote memory grossly intact, attention grossly intact and language grossly intact Estimated Intelligence: + above average estimated intelligence Insight: good insight Judgment: excellent judgement Results & Data Vital Signs (Past 12 Hours) Vital Signs Temp Pulse Pulse Resp BP Pulse Ox O2 Del Method 12/20/23 15:14 36.5 C 85 20 115/71 100 Nasal Cannula 12/20/23 14:00 77 12/20/23 11:35 98 12/20/23 11:25 36.4 C L 84 20 111/67 96 Room Air 12/20/23 10:00 Nasal Cannula 12/20/23 07:52 36.6 C 76 20 99/67 L 98 Nasal Cannula O2 Flow Rate 12/20/23 15:14 2 12/20/23 14:00 12/20/23 11:35 12/20/23 11:25 12/20/23 10:00 2 12/20/23 07:52 2 Laboratory Results data reviewed, see HPI Diagnostic Findings data reviewed, see HPI PG Care Time/CCT Total # of Minutes Spent Total Time Spent with Patient: Total time spent is greater than 50% in coordination of care (as documented) at patient's floor/unit and/or counseling patient: I spent 105 minutes overall addressing this case: 20 min in medical data review/discussion with referring provi mary(s) and/or preparation for the visit 15 min in direct interaction with the patient/exam 45 min in Advance Care Planning/Goals of Care discussions as detailed above in note (must be >16min) 10 min in subsequent review and synthesis of assessment and plan 15 min communicating with other providers regarding the patient's case: Advanced Care Planning 29956 Advanced Care Planning 30 Min [id number] Advanced Care Planning Additional 30 Min Coding Patient Type New Medical Decision Making High Complexity Diagnoses Bilateral buttock pain M79.18 Weakness generalized R53.1 Advanced care planning/counseling discussion Z71.89 Palliative care by specialist Z51.5 Metastatic cancer to spine C79.51 Sacral ulcer L98.429 Malignant neoplasm of breast metastatic to bone C50.919; C79.51 Additional Codes Advanced Care Planning - 75084 Advanced Care Planning 30 Min: 59444 Advanced Care Planning 30 Min ([id number]) Advanced Care Planning - 28057 Advanced Care Planning Additional 30 Min: 78099 Advanced Care Planning Additional 30 Min ([id number])
[2023-12-20] MEDS: dexAMETHasone 4 MG in SYRINGE 0 ML IV SCH (20:05)
[2023-12-20] MEDS: LANTUS PER UNIT CHARGE SQ SCH (21:48)
[2023-12-21 06:19] LABS: Hematocrit (blood only) 33.6 % (37.0-47.0); Hemoglobin 11.3 g/dl (12.0-16.0); Mean Corpuscular Hemoglobin 35.9 pg (25.0-34.0); Mean Corpuscular Hgb Conc 33.6 g/dL (32.0-36.0); Mean Corpuscular Volume 106.7 fL (80.0-100.0); Mean Platelet Volume 11.4 fL (9.4-12.4); Nucleated RBC # (auto) 0.06 K/uL (0.00-0.12); Nucleated RBC % (auto) 0.2 %; Platelet Count 107 K/uL (130-400); RDW Coefficient of Variation 18.7 % (11.5-14.5); RDW Standard Deviation 64.1 fL (36.4-46.3); Red Blood Count 3.15 M/uL (4.20-5.40); White Blood Count 24.64 K/ul (4.8-10.8)
[2023-12-21 06:28] LABS: Calcium 8.5 mg/dl (8.6-10.3); Potassium 4.7 mmol/L (3.5-5.1)
[2023-12-21 06:34] LABS: BUN Creatinine Ratio 17.5 (10-20); Creatinine Clr Calc Pharmacy 12.4 ml/min; Est GFR (African American) 11.9 ml/min; Est GFR (Non-African American) 10.3 ml/min
[2023-12-21] MEDS: HYDROmorphone INJ 0.5 MG/0.5 ML SYR IV PRN ×2 (07:48→19:20)
[2023-12-21] MEDS: VENLAFAXINE HCL XR 75 MG CAPXR PO SCH (07:52)
[2023-12-21] MEDS: VENLAFAXINE HCL XR 37.5 MG CAPXR PO SCH (07:52)
[2023-12-21] MEDS: LORazepam 2 MG/1 ML VIAL ONE (07:53)
--- NOTE | 2023-12-21 10:11 | Nephrology Progress Note ---
Date of Service December 21, 2023 Assessment & Plan (1) ESRD (end stage renal disease): Plan: * BP and volume status acceptable * Electrolytes controlled * Next HD planned for Tuesday * TDC functioning well for treatment * Outpatient HD Rx: M&F [facility] 2.5hr, 2K 2Ca, F-180NR. EDW 90 kg. Access R IJ TCC * Continue furosemide as Rx to encourage urine output * Renal diet and 1.2 L daily fluid restriction (2) Anemia: Plan: * Outpatient Rx: Venofer 100 mg IVP with HD and Micera 30 IVP q 2 weeks with HD * Epogen 39040 units with HD 06/20 (3) Metastatic cancer to spine: (4) Sacral ulcer: (5) Breast cancer: Admission and Anticipated Discharge Date Admission Date: December 08, 2023 Subjective No acute events overnight. Pauline was seen with the wound care team this AM. She reports feeling well. Pain controlled. Slept reasonably well last night. Appetite remains fair. Review of Systems Review of Systems: All systems reviewed & are unremarkable except as noted in HPI & below Physical Exam Constitutional: well developed, + morbidly obese, comfortable and + lethargic; no acute distress Eyes: no scleral abnormality and no corneal abnormality ENMT: Mouth: oral mucous membranes not dry Neck: normal visual inspection and trachea midline Respiratory: normal respiratory effort Auscultation: lungs clear to auscultation bilaterally Cardiovascular: Rate/Rhythm: regular rate Heart Sounds: normal S1 and normal S2 Extremities: no edema Musculoskeletal: Extremities: no cyanosis, no clubbing and no lower extremity abnormal to inspection (fullness and tenderness along the lateral aspect of the right thigh) Skin: normal turgor; no lesions and no jaundice Neurologic: Motor/Sensory: no tremor and no asterixis Psychiatric: Orientation: alert and oriented x 3 Results & Data Vital Signs (Past 12 Hours) Vital Signs Temp Pulse Pulse Resp BP BP Pulse Ox 12/21/23 07:50 12/21/23 07:46 36.5 C 80 20 103/65 100 12/21/23 07:00 74 12/21/23 03:30 36.6 C 80 16 113/73 98 12/21/23 01:33 12/21/23 00:28 79 12/20/23 22:37 36.4 C L 63 16 102/61 99 O2 Del Method O2 Flow Rate 12/21/23 07:50 Nasal Cannula 2 12/21/23 07:46 Room Air 12/21/23 07:00 12/21/23 03:30 Nasal Cannula 1.5 12/21/23 01:33 Nasal Cannula 2 12/21/23 00:28 12/20/23 22:37 Nasal Cannula 1.5 Laboratory Results Laboratory Results - last 24 hr 12/20/23 12/20/23 12/20/23 09:27 12:04 17:02 WBC RBC Hgb Hct MCV MCH MCHC RDW Std Deviation RDW Coeff of Amparo Plt Count MPV Absolute Nucleated RBC Nucleated RBC % (auto) Sodium Potassium Chloride Carbon Dioxide Anion Gap BUN Creatinine Est Cr Clr Drug Dosing Est GFR ( Amer) Est GFR (Non-Af Amer) BUN/Creatinine Ratio Glucose POC Glucose 286 H 214 H Calcium Procalcitonin 0.48 12/20/23 12/21/23 12/21/23 20:15 05:54 08:15 WBC 24.64 H RBC 3.15 L Hgb 11.3 L Hct 33.6 L MCV 106.7 H MCH 35.9 H MCHC 33.6 RDW Std Deviation 64.1 H RDW Coeff of Amparo 18.7 H Plt Count 107 L MPV 11.4 Absolute Nucleated RBC 0.06 Nucleated RBC % (auto) 0.2 Sodium 126 L Potassium 4.7 Chloride 90 L Carbon Dioxide 23 Anion Gap 13 H BUN 70 H Creatinine 4.00 H D Est Cr Clr Drug Dosing 12.4 Est GFR ( Amer) 11.9 Est GFR (Non-Af Amer) 10.3 BUN/Creatinine Ratio 17.5 Glucose 136 H POC Glucose 218 H 125 H Calcium 8.5 L Procalcitonin PG Care Time/CCT Total # of Minutes Spent Total Time Spent with Patient: Total time spent is greater than 50% in coordination of care (as documented) at patient's floor/unit and/or counseling patient: Coding Level of Care Code 93034 SUB INP/OBS CARE 3/50MIN Diagnoses ESRD (end stage renal disease) N18.6 Anemia D64.9 Metastatic cancer to spine C79.51 Sacral ulcer L98.429 Breast cancer C50.912 Breast location: unspecified site of breast Estrogen receptor status: unspecified Laterality: left Patient sex: female (5) Breast cancer Breast location: unspecified site of breast Estrogen receptor status: unspecified Laterality: left Patient sex: female Qualified Code(s): C50.912 - Malignant neoplasm of unspecified site of left female breast
[2023-12-21] MEDS: SODIUM CHLORIDE 1 GM TABLET PO ONE (10:47)
[2023-12-21 13:24] LABS: Base Excess VBG 0.9 mEq/L; HCO3 VBG 28 mmol/L; Oxygen Saturation VBG < 60.0 %; PCO2 VBG 51 mmHg (38-50); PO2 VBG 23 mmHg; pH VBG 7.34 (7.36-7.41)
[2023-12-21 13:30] LABS: Platelet Count 138 K/uL (130-400)
--- NOTE | 2023-12-21 15:09 | Hospitalist Progress Note ---
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 Had been on fentanyl patch with improved pain. The fentanyl patch was weaned off over the weekend as it was causing excess sedation, confusion and potentially low BP. Remains on IV dexamethasone BID. Will wean again tomorrow. Also on tylenol 1gm TID scheduled. Radiating pain to the b/l groin sounds like radicular pain from the l-spine -- this symptom is improved. She denies significant low back pain today. Hold off on ortho-spine re-eval for now unless the pain recurs over the expected location of T12. Rad onc saw patient; no palliative radiation for now. Appreciate palliative care consult and recs for pain management. (3) Acute hip pain, bilateral: Plan: improved s/p b/l intra-articular hip injections by IR on 11/30/23 both hips can be placed thru passive ROM with much improved pain thus the injections appear to have helped suspect that her b/l groin pain is referred pain from the lumbar spine rather than from the hips (4) ESRD needing dialysis: Plan: Appreciate ongoing nephrology assistance repeat BMP am (5) Atrial fibrillation: Plan: metoprolol has been on hold due to hypotension did convert back to a.fib 12/20/23 am but is rate controlled cont to monitor carefully is not on chronic anticoagulation - uncertain why will inquire (6) Heart failure: Plan: chronic diastolic CHF compensated via HD lasix/metoprolol on hold if anything she is volume contracted (7) Type 2 diabetes mellitus: Plan: BSGs improving cont lantus/cont novolog (8) Transaminitis: Plan: Resolved uncertain of etiology (9) Breast cancer: Plan: dx 2020; now metastatic to lung, bone; ?lymph nodes (based on most recent CT a/p - mild enlarged retroperitoneal nodes); ?liver follows with [facility]; injections in [place] on fulvestrant monthly; given yesterday, Monday 12/18 started on 10mg prednisone for hypercalcemia recently?? currently on 5mg PO daily at baseline (10) Pleural effusion: Plan: o2 sats stable defer on intervention (11) Leukocytosis: Plan: worse 2nd to steroids?? however, did have enterococcal UTI and 1/4 blood cx's + for GPC chains during previous admission in early November. sent blood cxc's yesterday - thus far negative repeat u/a and urine culture also ordered - will need to do straight cath to obtain such (12) Hyponatremia: Plan: present since 2022 likely due to ESRD status, lasix usage, etc worse today follow carefully could be contributing to mental status changes (13) Encephalopathy: Plan: presumed 2nd to narcotics - likely the dilaudid x 2 today was the culprit can't rule out infectious process brewing hyponatremia could be contributing ammonia wnl VBG without hypercapnia crp 3 procal negative consider head imaging in light of progressive, metastatic breast ca starting IV abx for buttock wounds follow Na level (14) MCKENZIE (nonalcoholic steatohepatitis): Plan: this will make her susceptible to the effects of narcotics ammonia wnl (15) Mobitz type 1 second degree AV block: Plan: seen on tele - no Rx needed no higher block seen (16) Hypotension: Plan: she continues to look volume contracted on exam she had hypotension during her early November stay as well consider midodrine pre-HD hold metoprolol hold lasix is already on large amounts of stress dose steroid H/H stable (17) Thrombocytopenia: Plan: consumptive due to the ecchymoses in abdominal wall? other? platelet count repeated this afternoon and stable HIT unlikely cont heparin SC cautiously - high risk of DVT (18) Skin ulcer of abdominal wall: Plan: due to immobility, heavy weight of pannus on this region, moisture, etc? wound care recs appreciated (19) Ecchymoses, spontaneous: Plan: due to "renal platelets"? other? Plan VTE prophylaxis: Heparin SC q12 repeat cbc tomorrow if platelets cont to drop then obtain HIT ab pt's spouse updated at bedside again today care d/w palliative care & wound care once again Admission and Anticipated Discharge Date Admission Date: December 08, 2023 Subjective tele - rate controlled a.[email or web address] this am - by report - patient was awake/alert, ate some breakfast needed 2 doses of IV dilaudid since then has been lethargic and difficult to arouse ate very little at lunch during the visit she was hard to wake up when she would wake up she would try to say "I'm really not that tired" very difficult to get any review of systems from her she did say her pain was better today Review of Systems Review of Systems: Unobtainable due to cognitive status Physical Exam Physical Exam: gen - obese, lethargic, falls asleep easily mouth - MM still dry neck - no JVD heart - RRR, s1 s2, 1/6 LUCIANO LSB lungs - CTA b/l abd - soft NT ND BS+ ext - pulses 2+ b/l, no edema chest - HD catheter present; clean/dry - right upper chest skin - ecchymoses along lower abdominal wall pannus; multiple ulcerations under the skin folds of lower pannus/groin Results & Data Results & Data Vital Signs (Past 12 Hours) Vital Signs Temp Pulse Pulse Resp BP BP Pulse Ox 12/21/23 15:04 36.4 C L 85 20 112/63 99 12/21/23 11:20 36.5 C 87 20 114/77 100 12/21/23 07:50 12/21/23 07:46 36.5 C 80 20 103/65 100 12/21/23 07:00 74 12/21/23 03:30 36.6 C 80 16 113/73 98 O2 Del Method O2 Flow Rate 12/21/23 15:04 Nasal Cannula 2 12/21/23 11:20 Nasal Cannula 2 12/21/23 07:50 Nasal Cannula 2 12/21/23 07:46 Room Air 12/21/23 07:00 12/21/23 03:30 Nasal Cannula 1.5 Laboratory Results Laboratory Results - last 48 hr 12/20/23 12/20/23 12/20/23 05:20 08:22 09:27 WBC RBC Hgb Hct MCV MCH MCHC RDW Std Deviation RDW Coeff of Amparo Plt Count MPV Absolute Nucleated RBC Nucleated RBC % (auto) VBG pH 7.35 L VBG pCO2 50 VBG pO2 27 VBG HCO3 28 VBG O2 Saturation < 60.0 VBG Base Excess 1.3 Sodium Potassium Chloride Carbon Dioxide Anion Gap BUN Creatinine Est Cr Clr Drug Dosing Est GFR ( Amer) Est GFR (Non-Af Amer) BUN/Creatinine Ratio Glucose POC Glucose 212 H Osmolality Calcium Ammonia 23.0 C-Reactive Protein 3.29 H Procalcitonin 0.48 12/20/23 12/20/23 12/20/23 12:04 17:02 20:15 WBC RBC Hgb Hct MCV MCH MCHC RDW Std Deviation RDW Coeff of Amparo Plt Count MPV Absolute Nucleated RBC Nucleated RBC % (auto) VBG pH VBG pCO2 VBG pO2 VBG HCO3 VBG O2 Saturation VBG Base Excess Sodium Potassium Chloride Carbon Dioxide Anion Gap BUN Creatinine Est Cr Clr Drug Dosing Est GFR ( Amer) Est GFR (Non-Af Amer) BUN/Creatinine Ratio Glucose POC Glucose 286 H 214 H 218 H Osmolality Calcium Ammonia C-Reactive Protein Procalcitonin 12/21/23 12/21/23 12/21/23 05:54 08:15 11:58 WBC 24.64 H RBC 3.15 L Hgb 11.3 L Hct 33.6 L MCV 106.7 H MCH 35.9 H MCHC 33.6 RDW Std Deviation 64.1 H RDW Coeff of Amparo 18.7 H Plt Count 107 L MPV 11.4 Absolute Nucleated RBC 0.06 Nucleated RBC % (auto) 0.2 VBG pH VBG pCO2 VBG pO2 VBG HCO3 VBG O2 Saturation VBG Base Excess Sodium 126 L Potassium 4.7 Chloride 90 L Carbon Dioxide 23 Anion Gap 13 H BUN 70 H Creatinine 4.00 H D Est Cr Clr Drug Dosing 12.4 Est GFR ( Amer) 11.9 Est GFR (Non-Af Amer) 10.3 BUN/Creatinine Ratio 17.5 Glucose 136 H POC Glucose 125 H 143 H Osmolality Calcium 8.5 L Ammonia C-Reactive Protein Procalcitonin 12/21/23 12/21/23 12/21/23 13:12 16:55 20:00 WBC RBC Hgb Hct MCV MCH MCHC RDW Std Deviation RDW Coeff of Amparo Plt Count 138 MPV Absolute Nucleated RBC Nucleated RBC % (auto) VBG pH 7.34 L VBG pCO2 51 H VBG pO2 23 VBG HCO3 28 VBG O2 Saturation < 60.0 VBG Base Excess 0.9 Sodium 128 L Potassium Chloride Carbon Dioxide Anion Gap BUN Creatinine Est Cr Clr Drug Dosing Est GFR ( Amer) Est GFR (Non-Af Amer) BUN/Creatinine Ratio Glucose POC Glucose 138 H 199 H Osmolality 296 Calcium Ammonia C-Reactive Protein Procalcitonin PG Care Time/CCT Total # of Minutes Spent Total Time Spent with Patient: Total time spent is greater than 50% in coordination of care (as documented) at patient's floor/unit and/or counseling patient: Coding Level of Care Code 48635 SUB INP/OBS CARE 3/50MIN Diagnoses Decubitus ulcer of buttock, unstageable L89.300 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 M84.58XA; C79.51 Acute hip pain, bilateral M25.551; M25.552 ESRD needing dialysis N18.6; Z99.2 Atrial fibrillation I48.91 Heart failure I50.9 Type 2 diabetes mellitus E11.9 Transaminitis R74.01 Breast cancer C50.912 Breast location: unspecified site of breast Estrogen receptor status: unspecified Laterality: left Patient sex: female Pleural effusion J90 Leukocytosis D72.829 Hyponatremia E87.1 Encephalopathy G93.40 MCKENZIE (nonalcoholic steatohepatitis) K75.81 Mobitz type 1 second degree AV block I44.1 Hypotension I95.9 Thrombocytopenia D69.6 Skin ulcer of abdominal wall L98.499 Ecchymoses, spontaneous R23.3 (9) Breast cancer Breast location: unspecified site of breast Estrogen receptor status: unspecified Laterality: left Patient sex: female Qualified Code(s): C50.912 - Malignant neoplasm of unspecified site of left female breast
--- NOTE | 2023-12-21 21:04 | Palliative Care Progress Note ---
Date of Service December 21, 2023 Assessment & Plan (1) Weakness generalized: (2) Bilateral buttock pain: (3) Palliative care by specialist: (4) Advanced care planning/counseling discussion: Plan: I met with Pauline and Adele at bedside for a 45min face to face ACP discussion I expressed my concerns this wound may not heal I advised them we do not have compounded MS topical ointment but Sandra Bella can likely compound it and she can have it brought here to use? We discussed her rising white cell count and the worry that brings in the setting of active cancer, immunosuppressed, debilitated, poor PS and chronic pain. Cultures reviewed, advised we are reviewing options for possible Abtx treatment. I updated them I contacted Dr Calvert who advised they had moved care to someplace more local. They tell me they were sent to [facility] by Dr Calvert since it is only 30 min from home and they were only coming for monthly injections. I told them I worry about her declining PS and how she was not able to tolerate PT today (see PT notes) and that if this persists, we may be looking at the emergence of a lower baseline. I also shared I am worried about what-ifs of non healing and worsening infection in the context of her major medical issues and how this may dramatically change what could be achievable goals of care. I made nutritional reccs and have asked title investigator to help boost protein intake, see their notes for more info. Pauline agrees to try Gelatein for the additional protein boost. (5) Metastatic cancer to spine: Plan ACP discussion as above Pain and sx mgt underway Extensive support provided, have shared with pt and my worries that some signs are getting worse such as rising WBC and declining PS. Ia also shared my worry the wound may not heal. Consider a trial of topical lidocaine to the wound periphery only during wound care Thank you for allowing us to participate in the ongoing care of this patient. Please don't hesitate to call or page with any additional concerns. Dr. Katiana Sewell DNP Director, Palliative Care Admission and Anticipated Discharge Date Admission Date: December 08, 2023 Subjective Pauline had a tough morning with confusion and mild lethargy following 2 doses of Dilaudid IV 0.25mg at 745 and approx 1045am. She is much clearer and more awake this afternoon. She tells me pain is improved on specialty mattress, it is taking a lot of pressure off the wound site She is feeling more tired today Denies nausea Denies sweats or chills Appetite ok Wound assessment today revealed buttocks decub about the same however new areas of open lesions at pannus skin fold. 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 and let the meds work Review of Systems Review of Systems: All systems reviewed & are unremarkable except as noted in Subjective Physical Exam Constitutional: + ill appearing, + physical limitations, + frail appearing and + malnourished Eyes: PERRL and EOM intact bilaterally ENMT: Mouth: + muffled voice, + dry oral mucous membranes and + poor dentition Neck: trachea midline, no thyromegaly + short neck Thyroid: normal thyroid Respiratory: normal respiratory effort, able to speak in complete sentences and symmetric chest movement Auscultation: + diminished lung sounds and + crackles Cardiovascular: Rate/Rhythm: regular rate and regular rhythm Heart Sounds: normal S1 and normal S2 Palpation: normal PMI Extremities: + varicosities venous insuff changes BLE, trace edema Gastrointestinal (Abdomen): Inspection/Auscultation: + abdomen distended, normal bowel sounds and + significant pannus Percussion/Palpation: abdomen soft and normal to percussion multiple open areas along pannus skin fold, see wound assessment photo. peripheral erythema noted. Musculoskeletal: signif deconditioning and generalized weakness Skin: + turgor decreased, + skin tightening, + dry skin and + ecchymosis Neurologic: PERRL, EOMI, accommodation nl, no face palsy, no dysarthria AAOx3 Psychiatric: Orientation: alert and oriented x 3 Apperance: appropriately dressed and appropriately groomed Eye Contact: + fair eye contact Speech: normal rate/rhythm/volume of speech Affect: + depressed affect Mood: + depressed mood Thought Process: linear/logical thought process Thought Content: + loneliness Suicidal Thoughts: denies suicidal thoughts, denies suicidal plan and denies suicidal intent Cognition: recent memory grossly intact, remote memory grossly intact, attention grossly intact and language grossly intact Estimated Intelligence: + above average estimated intelligence Insight: good insight Judgment: excellent judgement Results & Data Vital Signs (Past 12 Hours) Vital Signs Temp Pulse Resp BP BP Pulse Ox O2 Del Method 12/21/23 19:23 36.8 C 86 18 106/70 99 Nasal Cannula 12/21/23 15:04 36.4 C L 85 20 112/63 99 Nasal Cannula 12/21/23 11:20 36.5 C 87 20 114/77 100 Nasal Cannula O2 Flow Rate 12/21/23 19:23 2 12/21/23 15:04 2 12/21/23 11:20 2 Laboratory Results Abnormal lab results 12/21/23 12/21/23 12/21/23 Range/Units 05:54 08:15 11:58 WBC 24.64 H (4.8-10.8) K/ul RBC 3.15 L (4.20-5.40) M/uL Hgb 11.3 L (12.0-16.0) g/dl Hct 33.6 L (37.0-47.0) % MCV 106.7 H (80.0-100.0) fL MCH 35.9 H (25.0-34.0) pg RDW Std Deviation 64.1 H (36.4-46.3) fL RDW Coeff of Amparo 18.7 H (11.5-14.5) % Plt Count 107 L (130-400) K/uL VBG pH (7.36-7.41) VBG pCO2 (38-50) mmHg Sodium 126 L (136-145) mmol/L Chloride 90 L (98-107) mmol/L Anion Gap 13 H (3-11) BUN 70 H (6-23) mg/dl Creatinine 4.00 H D (0.6-1.2) mg/dl Glucose 136 H (70-99(Fasting)) mg/dl POC Glucose 125 H 143 H (70-99) mg/dl Calcium 8.5 L (8.6-10.3) mg/dl 12/21/23 12/21/23 12/21/23 Range/Units 13:12 16:55 20:00 WBC (4.8-10.8) K/ul RBC (4.20-5.40) M/uL Hgb (12.0-16.0) g/dl Hct (37.0-47.0) % MCV (80.0-100.0) fL MCH (25.0-34.0) pg RDW Std Deviation (36.4-46.3) fL RDW Coeff of Amparo (11.5-14.5) % Plt Count (130-400) K/uL VBG pH 7.34 L (7.36-7.41) VBG pCO2 51 H (38-50) mmHg Sodium 128 L (136-145) mmol/L Chloride (98-107) mmol/L Anion Gap (3-11) BUN (6-23) mg/dl Creatinine (0.6-1.2) mg/dl Glucose (70-99(Fasting)) mg/dl POC Glucose 138 H 199 H (70-99) mg/dl Calcium (8.6-10.3) mg/dl Diagnostic Findings Laboratory Results WBC 24.64 K/ul (4.8-10.8) H 12/21/23 05:54 RBC 3.15 M/uL (4.20-5.40) L 12/21/23 05:54 Hgb 11.3 g/dl (12.0-16.0) L 12/21/23 05:54 Hct 33.6 % (37.0-47.0) L 12/21/23 05:54 MCV 106.7 fL (80.0-100.0) H 12/21/23 05:54 MCH 35.9 pg (25.0-34.0) H 12/21/23 05:54 MCHC 33.6 g/dL (32.0-36.0) 12/21/23 05:54 RDW Std Deviation 64.1 fL (36.4-46.3) H 12/21/23 05:54 RDW Coeff of Amparo 18.7 % (11.5-14.5) H 12/21/23 05:54 Plt Count 138 K/uL (130-400) 12/21/23 13:12 MPV 11.4 fL (9.4-12.4) 12/21/23 05:54 Immature Gran % (Auto) 1.2 % 12/15/23 08:07 Neut % (Auto) 90.3 % 12/15/23 08:07 Lymph % (Auto) 4.6 % 12/15/23 08:07 Winston % (Auto) 3.8 % 12/15/23 08:07 Eos % (Auto) 0.0 % 12/15/23 08:07 Baso % (Auto) 0.1 % 12/15/23 08:07 Neut # (Auto) 12.99 K/uL (1.40-6.50) H 12/15/23 08:07 Lymph # (Auto) 0.66 K/uL (1.20-3.40) L 12/15/23 08:07 Winston # (Auto) 0.54 K/uL (0.11-0.59) 12/15/23 08:07 Eos # (Auto) 0.00 K/uL (0.00-0.50) 12/15/23 08:07 Baso # (Auto) 0.02 K/uL (0.00-0.20) 12/15/23 08:07 Immature Gran # (Auto) 0.17 K/uL (0.01-0.20) 12/15/23 08:07 Absolute Nucleated RBC 0.06 K/uL (0.00-0.12) 12/21/23 05:54 Nucleated RBC % (auto) 0.2 % 12/21/23 05:54 Platelet Estimate Cancelled 12/10/23 06:42 Macrocytosis Present 12/09/23 06:53 ESR 93 mm/hr (0-30) H 12/11/23 06:13 VBG pH 7.34 (7.36-7.41) L 12/21/23 13:12 VBG pCO2 51 mmHg (38-50) H 12/21/23 13:12 VBG pO2 23 mmHg 12/21/23 13:12 VBG HCO3 28 mmol/L 12/21/23 13:12 VBG O2 Saturation < 60.0 % 12/21/23 13:12 VBG Base Excess 0.9 mEq/L 12/21/23 13:12 Sodium 128 mmol/L (136-145) L 12/21/23 13:12 Potassium 4.7 mmol/L (3.5-5.1) 12/21/23 05:54 Chloride 90 mmol/L (98-107) L 12/21/23 05:54 Carbon Dioxide 23 mmol/L (21-32) 12/21/23 05:54 Anion Gap 13 (3-11) H 12/21/23 05:54 BUN 70 mg/dl (6-23) H 12/21/23 05:54 Creatinine 4.00 mg/dl (0.6-1.2) H D 12/21/23 05:54 Est Cr Clr Drug Dosing 12.4 ml/min 12/21/23 05:54 Est GFR ( Amer) 11.9 ml/min 12/21/23 05:54 Est GFR (Non-Af Amer) 10.3 ml/min 12/21/23 05:54 BUN/Creatinine Ratio 17.5 (10-20) 12/21/23 05:54 Glucose 136 mg/dl (70-99(Fasting)) H 12/21/23 05:54 POC Glucose 199 mg/dl (70-99) H 12/21/23 20:00 Osmolality 296 mOsm/kg (280-300) 12/21/23 13:12 Calcium 8.5 mg/dl (8.6-10.3) L 12/21/23 05:54 Phosphorus Cancelled 12/19/23 07:13 Magnesium 2.3 mg/dl (1.7-2.4) 12/15/23 08:07 Total Bilirubin 0.9 mg/dl (0.2-1.0) 12/19/23 08:16 Direct Bilirubin 0.4 mg/dl (0-0.2) H 12/19/23 08:16 AST 33 U/L (13-39) 12/19/23 08:16 ALT 43 U/L (7-52) 12/19/23 08:16 Alkaline Phosphatase 239 U/L (34-104) H 12/19/23 08:16 Ammonia 23.0 umol/L (18-72) 12/20/23 09:27 C-Reactive Protein 3.29 mg/dl (0-0.5) H 12/20/23 05:20 Total Protein 6.0 gm/dl (6.0-8.3) 12/19/23 08:16 Albumin 3.2 gm/dl (3.4-5.0) L 12/19/23 08:16 Globulin 3.2 gm/dl (2.5-4.0) 12/15/23 08:07 Albumin/Globulin Ratio 1.0 (0.9-2) 12/15/23 08:07 Procalcitonin 0.48 ng/ml (0-0.5) 12/20/23 09:27 Nasal Screen MRSA (PCR) Negative (Negative) 12/09/23 21:[address] 12/08/23 16:42 CT OF THE LUMBAR SPINE CLINICAL HISTORY: Back pain. Breast cancer. COMPARISON STUDY: Lumbar spine CT September 13, 2023. Lumbar spine MRI October 18, 2023. TECHNIQUE: Helical axial images of the lumbar spine were obtained. Sagittal and coronal reconstructions were viewed. Automated exposure control was utilized for the study. A dose lowering technique was utilized adhering to the principles of ALARA. FINDINGS: Please note that the abdomen and pelvis CT will be reported separately. For purposes of numbering on this exam, the L5-S1 disc space is assigned to axial image 151 of 198. Alignment of the lumbar spine is anatomic. L1 and L2 kyphoplasty for pathologic fractures is again noted. The postprocedural appearance is similar to abdominal CT of December 02, 2023. Progressive lytic appearance of the T12 vertebral body is noted. This suggests additional metastases. No associated pathologic fracture would be difficult to exclude. No vertebral body height loss at this level is noted. An additional L4 vertebral body metastasis is unchanged. A lytic focus within L5 is unchanged. There is moderate multilevel facet arthrosis and moderate to severe multilevel disc space narrowing within the lumbar spine. Central canal and neural foramen are suboptimally assessed given CT technique. IMPRESSION: 1. Multiple skeletal lesions within the lower thoracic and lumbar spine consistent with metastases. Pathologic fracture at the T12 level would be difficult to exclude. No vertebral body height loss. 2. Status post L1 and L2 kyphoplasty. Stable postprocedural appearance. 3. Moderate to severe multilevel degenerative changes within the lumbar spine. Suboptimal evaluation of central canal and neural foramen given CT technique. ACT 112: Negative or not required by law. Electronically signed by: Bob Alejandre M.D. 12/08/2023 6:35 PM Abdomen/Pelvis CT 12/08/23 17:00 CT OF THE ABDOMEN AND PELVIS WITHOUT CONTRAST CLINICAL HISTORY: Back pain. Breast cancer. COMPARISON STUDY: CT of the abdomen and pelvis December 02, 2023. TECHNIQUE: Axial images of the abdomen and pelvis were obtained without IV contrast. Images were reviewed in the axial, sagittal, and coronal planes. Aut omated exposure control was utilized for the study. A dose lowering technique was utilized adhering to the principles of ALARA. FINDINGS: Moderate right and small left pleural effusions are unchanged since CT of December 02, 2023. Heart is moderately enlarged. A left breast density may reflect the primary lesion. Mild pulmonary edema within the lower lungs is again noted. Evaluation of the abdomen and pelvis is suboptimal on this unenhanced exam. There is oral contrast throughout portions of the colon and rectum from prior CT. Heterogeneity with nodularity of the liver surface is again noted. T his is similar to prior CT. Spleen, adrenal glands and pancreas are unremarkable. There is extensive vascular calcification. Bilateral renal calculi are present. There is no hydronephrosis. Several left ureterovesical junction calculi measure up to 7 mm. These are similar to prior exam. There is no upstream dilatation. Mildly enlarged retroperitoneal lymph nodes are unchanged. No evidence for a bowel obstruction. No new sites of lymphadenopathy are identified. Previous kyphoplasty at the L1 and L2 levels is noted with underlying pathologic fractures, similar appearance to prior CT. Additional lytic lesions within the lumbar spine are noted. In addition, there is a lytic lesion within T12 with cortical disruption. Findings are better depicted on the lumbar spine CT which will be reported separately. IMPRESSION: 1. No bowel obstruction. 2. No significant change since prior CT. Cardiomegaly with moderate right and small left pleural effusions and mild edema. 3. Several left ureterovesical junction calculi, similar to prior exam. No hydronephrosis. Bilateral nephrolithiasis. 4. Multiple osseous metastases with pathologic L1 and L2 fractures status post kyphoplasty. Additional lesions within the lower thoracic and lumbar spine. 5. Heterogeneity of the liver with nodularity liver surface, similar to prior exam. This remains nonspecific and could reflect cirrhosis or metastatic disease. ACT 112: Negative or not required by law. Electronically signed by: Bob Alejandre M.D. 12/08/2023 6:23 PM Soft Tissue Ultrasound 12/11/23 00:00 US soft tissue ext ltd CLINICAL HISTORY: eval right hip induration for fluid collection COMPARISON STUDY: Abdomen and pelvis CT 12/08/2023. FINDINGS: Real-time sonographic imaging of the right hip was performed with international account representative images submitted. Mild edema and increased echogenicity within the subcutaneous fat. There are few scattered varicosities noted. No loculated fluid collections, masses, lymphadenopathy identified. IMPRESSION: No loculated fluid collections within the right hip. ACT 112: Negative or not required by law. Electronically signed by: Duran Adhikari M.D. 12/11/2023 8:12 AM PG Care Time/CCT Total # of Minutes Spent Total Time Spent with Patient: Total time spent is greater than 50% in coordination of care (as documented) at patient's floor/unit and/or counseling patient: I spent 95 minutes overall addressing this case: 10 min in medical data review/discussion with referring provider(s) and/or preparation for the visit15/15 15 min in direct interaction with the patient/exam 45 min in Advance Care Planning/Goals of Care discussions as detailed above in note (must be >16min) 10 min in subsequent review and synthesis of assessment and plan 15 min communicating with other providers regarding the patient's case: Advanced Care Planning 10573 Advanced Care Planning 30 Min 78221 Advanced Care Planning Additional 30 Min [place] [address] SUB INP/OBS CARE 3/50MIN Patient Type Established History Comprehensive Exam Comprehensive Medical Decision Making High Complexity Diagnoses Weakness generalized R53.1 Bilateral buttock pain M79.18 Palliative care by specialist Z51.5 Advanced care planning/counseling discussion Z71.89 Metastatic cancer to spine C79.51 Additional Codes Advanced Care Planning - 84137 Advanced Care Planning 30 Min: 57292 Advanced Care Planning 30 Min ([id number]) Advanced Care Planning - 11169 Advanced Care Planning Additional 30 Min: 20125 Advanced Care Planning Additional 30 Min ([id number])
[2023-12-22] MEDS: ERTAPENEM SODIUM 500 MG in SYRINGE 0 ML IV SCH (00:49)
[2023-12-22 07:32] LABS: Hematocrit (blood only) 32.9 % (37.0-47.0); Hemoglobin 11.1 g/dl (12.0-16.0); Mean Corpuscular Hgb Conc 33.7 g/dL (32.0-36.0); Mean Corpuscular Volume 106.8 fL (80.0-100.0); Mean Platelet Volume 11.8 fL (9.4-12.4); Nucleated RBC # (auto) 0.03 K/uL (0.00-0.12); Nucleated RBC % (auto) 0.1 %; Platelet Count 122 K/uL (130-400); RDW Coefficient of Variation 19.2 % (11.5-14.5); RDW Standard Deviation 67.7 fL (36.4-46.3); Red Blood Count 3.08 M/uL (4.20-5.40)
[2023-12-22 07:41] LABS: Calcium 8.3 mg/dl (8.6-10.3); Potassium 5.3 mmol/L (3.5-5.1)
[2023-12-22 07:51] LABS: BUN Creatinine Ratio 18.5 (10-20); Creatinine Clr Calc Pharmacy 10.4 ml/min; Est GFR (African American) 10.2 ml/min; Est GFR (Non-African American) 8.8 ml/min
--- NOTE | 2023-12-22 09:44 | Nephrology Progress Note ---
Date of Service December 22, 2023 Assessment & Plan (1) ESRD (end stage renal disease): Plan: * Outpatient HD Rx: M&F [facility] 2.5hr, 2K 2Ca, F-180NR. EDW 90 kg. Access R IJ TCC. * BP and volume status acceptable * Electrolytes notable for chronic hyponatremia and mild hyperkalemia * Lokelma will be provided today for potassium * Next HD planned for tomorrow * I explained to Pauline that her blood work indicates excessive free water (combination of poor solute intake and kidney dysfunction and persistent hyperkalemia). These changes are partially dietary and also likely reflect progressive kidney dysfunction. Ultimately, I suspect that she would benefit from more frequent dialysis. She has been very resistant to this idea in the past. She was more receptive to this today. There is no urgency to change her Rx but I suspect we will need to strongly consider a MWF schedule moving forward. Unfortunately, her prognosis overall is very poor due to debility and multiple medical comorbidities. Increasing the amount of dialysis is not likely going to significantly improve her life expectancy or quality of life. For now, I will continue a free water restriction and provide Lokelma for hyperkalemia. * TDC has been functioning well for treatment * I will resume furosemide today at 40 mg PO daily * Renal diet and 1.2 L daily fluid restriction (2) Anemia: Plan: * Outpatient Rx: Venofer 100 mg IVP with HD and Micera 30 IVP q 2 weeks with HD * Epogen 48391 units with HD 06/20 (3) Metastatic cancer to spine: (4) Sacral ulcer: (5) Breast cancer: Admission and Anticipated Discharge Date Admission Date: December 08, 2023 Subjective No acute events overnight. Pauline was resting comfortably in bed this morning. She ate very little for breakfast. Appetite is poor. She tries to drink 3 Boost supplements each day. She denies any concerning GI symptoms. She has moved her bowels several times in the past 24 hours and expressed relief from this. She is voiding less urine. She was more alert this morning. She was very conversational but had difficulty staying on topic. She repeated multiple times that "I have a very good team of doctors." She was not able to communicate to me the details of her conversation with Dr. Sewell from yesterday. When I asked about the sacral ulcer, she told me "I hardly notice it now. They are working on it constantly." Pauline denied pain this AM. She told me that she thinks that she is doing well. She believes that she has improved since admission. She said that the only problem that she sees now is the ulcer. She admits that she is very weak and debilitated: "I just need to start moving." She told me that she doesn't think there would be issues going home: "I just need the right help." She did not elaborate on this. I expressed my concern that her kidney dysfunction may be progressing and there are several indicators that twice weekly dialysis may not be sufficient. She was receptive to the idea of 3x per week HD. However, she added: "Of course, I don't think I need it now. And: "We wouldn't unless it was absolutely necessary." In response to her cancer diagnosis, she told me that the oncologist told her the other day that it is not progressing and that she really doesn't need any additional treatment. Review of Systems Review of Systems: All systems reviewed & are unremarkable except as noted in HPI & below Physical Exam Constitutional: well developed, + morbidly obese and comfortable; no acute distress Eyes: + anicteric sclerae; no corneal abnormal ity ENMT: Mouth: + dry oral mucous membranes Neck: normal visual inspection, trachea midline and + thick neck Respiratory: normal respiratory effort Auscultation: lungs clear to auscultation bilaterally and + rales (few at the right base) Cardiovascular: Rate/Rhythm: regular rate and regular rhythm Heart Sounds: normal S1 and normal S2 Extremities: no edema Musculoskeletal: Extremities: no cyanosis and no clubbing Skin: no jaundice Neurologic: Motor/Sensory: no tremor and no asterixis Psychiatric: Orientation: alert and oriented x 3 Results & Data Vital Signs (Past 12 Hours) Vital Signs Temp Pulse Pulse Resp BP BP Pulse Ox 12/22/23 07:56 36.4 C L 93 H 12 124/53 L 100 12/22/23 07:00 73 12/22/23 04:00 36.5 C 87 18 109/68 96 12/22/23 00:26 12/21/23 22:43 36.6 C 82 20 110/68 99 O2 Del Method O2 Flow Rate 12/22/23 07:56 Nasal Cannula 2 12/22/23 07:00 12/22/23 04:00 Nasal Cannula 2 12/22/23 00:26 Nasal Cannula 2 12/21/23 22:43 Nasal Cannula 2 Laboratory Results Laboratory Results - last 24 hr 12/21/23 12/21/23 12/21/23 11:58 13:12 16:55 WBC RBC Hgb Hct MCV MCH MCHC RDW Std Deviation RDW Coeff of Amparo Plt Count 138 MPV Absolute Nucleated RBC Nucleated RBC % (auto) VBG pH 7.34 L VBG pCO2 51 H VBG pO2 23 VBG HCO3 28 VBG O2 Saturation < 60.0 VBG Base Excess 0.9 Sodium 128 L Potassium Chloride Carbon Dioxide Anion Gap BUN Creatinine Est Cr Clr Drug Dosing Est GFR ( Amer) Est GFR (Non-Af Amer) BUN/Creatinine Ratio Glucose POC Glucose 143 H 138 H Osmolality 296 Calcium 12/21/23 12/22/23 12/22/23 20:00 06:46 08:11 WBC 22.20 H RBC 3.08 L Hgb 11.1 L Hct 32.9 L MCV 106.8 H MCH 36.0 H MCHC 33.7 RDW Std Deviation 67.7 H RDW Coeff of Amparo 19.2 H Plt Count 122 L MPV 11.8 Absolute Nucleated RBC 0.03 Nucleated RBC % (auto) 0.1 VBG pH VBG pCO2 VBG pO2 VBG HCO3 VBG O2 Saturation VBG Base Excess Sodium 126 L Potassium 5.3 H Chloride 89 L Carbon Dioxide 24 Anion Gap 13 H BUN 84 H Creatinine 4.55 H* D Est Cr Clr Drug Dosing 10.4 Est GFR ( Amer) 10.2 Est GFR (Non-Af Amer) 8.8 BUN/Creatinine Ratio 18.5 Glucose 197 H POC Glucose 199 H 194 H Osmolality Calcium 8.3 L PG Care Time/CCT Total # of Minutes Spent Total Time Spent with Patient: Total time spent is greater than 50% in coordination of care (as documented) at patient's floor/unit and/or counseling patient: Coding Level of Care Code 99866 SUB INP/OBS CARE 3/50MIN Diagnoses ESRD (end stage renal disease) N18.6 Anemia D64.9 Metastatic cancer to spine C79.51 Sacral ulcer L98.429 Breast cancer C50.912 Breast location: unspecified site of breast Estrogen receptor status: unspecified Laterality: left Patient sex: female (5) Breast cancer Breast location: unspecified site of breast Estrogen receptor status: unspecified Laterality: left Patient sex: female Qualified Code(s): C50.912 - Malignant neoplasm of unspecified site of left female breast
[2023-12-22] MEDS: SODIUM ZIRCONIUM CYCLOSILICATE 10 GM PACKET PO ONE (11:53)
[2023-12-22] MEDS: FUROSEMIDE 40 MG TAB PO SCH (11:53)
[2023-12-22] MEDS: HYDROmorphone HCL 2 MG TAB PO PRN (15:15)
--- NOTE | 2023-12-22 17:55 | Hospitalist Progress Note ---
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 Had been on fentanyl patch with improved pain. The fentanyl patch was weaned off over the weekend as it was causing excess sedation, confusion and potentially low BP. Remains on IV dexamethasone BID. Wean to once daily dosing. Cont tylenol 1gm TID scheduled. Radiating pain to the b/l groin sounds like radicular pain from the l-spine -- this symptom has improved. She reports only mild lumbar back pain today. Hold off on ortho-spine re-eval for now unless the pain recurs over the expected location of T12. Rad onc saw patient; no palliative radiation for now. Appreciate palliative care consult and recs for pain management. (3) Acute hip pain, bilateral: Plan: improved s/p b/l intra-articular hip injections by IR on 11/30/23 both hips can be placed thru passive ROM with much improved pain thus the injections appear to have helped suspect that her b/l groin pain was referred pain from the lumbar spine rather than from the hips (4) ESRD needing dialysis: Plan: Appreciate ongoing nephrology assistance repeat BMP am HD scheduled for tomorrow one dose of lokelma for her mild hyperkalemia (5) Atrial fibrillation: Plan: metoprolol has been on hold due to hypotension did convert back to a.fib 12/20/23 am but she remains rate controlled cont to monitor carefully is not on chronic anticoagulation - uncertain why (6) Heart failure: Plan: chronic diastolic CHF volume control via HD lasix/metoprolol have been on hold due to recent hypotension but lasix resumed today by Dr Glass (7) Type 2 diabetes mellitus: Plan: BSGs satisfactory cont lantus/cont novolog (8) Transaminitis: Plan: uncertain etiology but resolved (9) Breast cancer: Plan: dx 2020; now metastatic to lung, bone; ?lymph nodes (based on most recent CT a/p - mild enlarged retroperitoneal nodes); ?liver follows with [facility]; injections in [place] on fulvestrant monthly; given yesterday, Monday 12/18 started on 10mg prednisone for hypercalcemia recently?? currently on 5mg PO daily at baseline but receiving stress dose steroids with IV dex for her back pain (10) Pleural effusion: Plan: o2 sats stable R>L follow clinically (11) Leukocytosis: Plan: starting to improve 2nd to steroids vs wound infection vs other did have enterococcal UTI and / blood cx's + for GPC chains during previous admission in early November. blood cx's remain negative from 48 hours ago attempted to get urine via straight cath but unsuccessful ertapenem is being used for buttock decubitus ulcer infection - ertapenem will cover the urinary tract if infection is present there (12) Hyponatremia: Plan: present since 2022 likely due to ESRD status, lasix usage, etc worse today follow carefully could be contributing to mental status changes defer management to nephrology (13) Encephalopathy: Plan: narcotics likely the largest factor contributing can't rule out infection (buttock wound infection) contributing hyponatremia could be contributing ammonia wnl VBG without hypercapnia crp 3 procal negative could consider head imaging in light of progressive, metastatic breast ca but the above factors are the more likely culprits - thus, hold off for now cont IV abx for buttock wounds follow Na level (14) MCKENZIE (nonalcoholic steatohepatitis): Plan: this will make her susceptible to the effects of narcotics ammonia wnl (15) Mobitz type 1 second degree AV block: Plan: seen on tele - no Rx needed no higher block seen (16) Hypotension: Plan: resolved will attempt to resume low-dose metoprolol soon defer lasix use to nephrology (17) Thrombocytopenia: Plan: consumptive due to the ecchymoses in abdominal wall? other? platelet count only mildly low but stable HIT unlikely cont heparin SC cautiously - high risk of DVT due to bed-bound status, stage 4 breast ca, etc (18) Skin ulcer of abdominal wall: Plan: due to immobility, heavy weight of pannus on this region, moisture, etc? wound care recs appreciated (19) Ecchymoses, spontaneous: Plan: due to "renal platelets"? other? Plan VTE prophylaxis: Heparin SC q12 pt's spouse updated at bedside again today care d/w palliative care & wound care Admission and Anticipated Discharge Date Admission Date: December 08, 2023 Subjective tele - a.fib, rate controlled with rates <100 pt very sleepy during the visit she was bringing up topics that had nothing to do with her hospitalization or care confused falling asleep easily often mid-sentence myoclonic twitches/jerks noted denied pain in her groin but did endorse low back pain mild right hip pain as well worked with PT/OT - could barely sit at side of bed ate fair breakfast, poor lunch short of breath with any activity moving bowels had large amount of urine with lasix today Review of Systems Review of Systems: cv - denied cp GI - denied abd pain pulm - dyspnea with trying to move or roll in bed Physical Exam Physical Exam: gen - obese, lethargic, falls asleep easily - even worse than yesterday mouth - MM still VERY dry; no obvious thrush but some minor posterior throat irritation neck - no JVD heart - RRR, s1 s2, 1/6 LUCIANO LSB lungs - CTA b/l, decreased BS right base abd - soft NT ND BS+ ext - pulses 2+ b/l, no edema chest - HD catheter present; clean/dry - right upper chest skin - ecchymoses along lower abdominal wall pannus; multiple ulcerations under the skin folds of lower pannus/groin -- all unchanged Results & Data Results & Data Vital Signs (Past 12 Hours) Vital Signs Temp Pulse Pulse Resp BP Pulse Ox O2 Del Method 12/22/23 15:27 36.5 C 74 18 113/61 99 Nasal Cannula 12/22/23 15:00 73 12/22/23 11:56 36.6 C 78 14 122/74 98 Nasal Cannula 12/22/23 08:30 Nasal Cannula 12/22/23 07:56 36.4 C L 93 H 12 124/53 L 100 Nasal Cannula 12/22/23 07:00 73 O2 Flow Rate 12/22/23 15:27 2 12/22/23 15:00 12/22/23 11:56 2 12/22/23 08:30 2 12/22/23 07:56 2 12/22/23 07:00 Laboratory Results Laboratory Results - last 48 hr 12/21/23 12/21/23 12/21/23 11:58 13:12 16:55 WBC RBC Hgb Hct MCV MCH MCHC RDW Std Deviation RDW Coeff of Amparo Plt Count 138 MPV Immature Gran % (Auto) Neut % (Auto) Lymph % (Auto) [place] % (Auto) Eos % (Auto) Baso % (Auto) Neut # (Auto) Lymph # (Auto) [place] # (Auto) Eos # (Auto) Baso # (Auto) Immature Gran # (Auto) Absolute Nucleated RBC Nucleated RBC % (auto) VBG pH 7.34 L VBG pCO2 51 H VBG pO2 23 VBG HCO3 28 VBG O2 Saturation < 60.0 VBG Base Excess 0.9 Sodium 128 L Potassium Chloride Carbon Dioxide Anion Gap BUN Creatinine Est Cr Clr Drug Dosing Est GFR ( Amer) Est GFR (Non-Af Amer) BUN/Creatinine Ratio Glucose POC Glucose 143 H 138 H Osmolality 296 Calcium Phosphorus Albumin 12/21/23 12/22/23 12/22/23 20:00 06:46 08:11 WBC 22.20 H RBC 3.08 L Hgb 11.1 L Hct 32.9 L MCV 106.8 H MCH 36.0 H MCHC 33.7 RDW Std Deviation 67.7 H RDW Coeff of Amparo 19.2 H Plt Count 122 L MPV 11.8 Immature Gran % (Auto) Neut % (Auto) Lymph % (Auto) [place] % (Auto) Eos % (Auto) Baso % (Auto) Neut # (Auto) Lymph # (Auto) [place] # (Auto) Eos # (Auto) Baso # (Auto) Immature Gran # (Auto) Absolute Nucleated RBC 0.03 Nucleated RBC % (auto) 0.1 VBG pH VBG pCO2 VBG pO2 VBG HCO3 VBG O2 Saturation VBG Base Excess Sodium 126 L Potassium 5.3 H Chloride 89 L Carbon Dioxide 24 Anion Gap 13 H BUN 84 H Creatinine 4.55 H* D Est Cr Clr Drug Dosing 10.4 Est GFR ( Amer) 10.2 Est GFR (Non-Af Amer) 8.8 BUN/Creatinine Ratio 18.5 Glucose 197 H POC Glucose 199 H 194 H Osmolality Calcium 8.3 L Phosphorus Albumin 12/22/23 12/22/23 12:08 17:10 WBC RBC Hgb Hct MCV MCH MCHC RDW Std Deviation RDW Coeff of Amparo Plt Count MPV Immature Gran % (Auto) Neut % (Auto) Lymph % (Auto) [place] % (Auto) Eos % (Auto) Baso % (Auto) Neut # (Auto) Lymph # (Auto) [place] # (Auto) Eos # (Auto) Baso # (Auto) Immature Gran # (Auto) Absolute Nucleated RBC Nucleated RBC % (auto) VBG pH VBG pCO2 VBG pO2 VBG HCO3 VBG O2 Saturation VBG Base Excess Sodium Potassium Chloride Carbon Dioxide Anion Gap BUN Creatinine Est Cr Clr Drug Dosing Est GFR ( Amer) Est GFR (Non-Af Amer) BUN/Creatinine Ratio Glucose POC Glucose 210 H 236 H Osmolality Calcium Phosphorus Albumin PG Care Time/CCT Total # of Minutes Spent Total Time Spent with Patient: Total time spent is greater than 50% in coordination of care (as documented) at patient's floor/unit and/or counseling patient: Coding Level of Care Code 58356 SUB INP/OBS CARE 2/35MIN Diagnoses Decubitus ulcer of buttock, unstageable L89.300 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 M84.58XA; C79.51 Acute hip pain, bilateral M25.551; M25.552 ESRD needing dialysis N18.6; Z99.2 Atrial fibrillation I48.91 Heart failure I50.9 Type 2 diabetes mellitus E11.9 Transaminitis R74.01 Breast cancer C50.912 Breast location: unspecified site of breast Estrogen receptor status: unspecified Laterality: left Patient sex: female Pleural effusion J90 Leukocytosis D72.829 Hyponatremia E87.1 Encephalopathy G93.40 MCKENZIE (nonalcoholic steatohepatitis) K75.81 Mobitz type 1 second degree AV block I44.1 Hypotension I95.9 Thrombocytopenia D69.6 Skin ulcer of abdominal wall L98.499 Ecchymoses, spontaneous R23.3 (9) Breast cancer Breast location: unspecified site of breast Estrogen receptor status: unspecified Laterality: left Patient sex: female Qualified Code(s): C50.912 - Malignant neoplasm of unspecified site of left female breast
[2023-12-22] MEDS ORDERED: HYDROmorphone INJ 0.5 MG/0.5 ML SYR IV PRN (17:56)
[2023-12-22] MEDS ORDERED: HYDROmorphone HCL 2 MG TAB PO PRN (17:57)
[2023-12-22] MEDS: NYSTATIN SUSP 500,000 U/5 ML UDC PO SCH (20:34)
[2023-12-23] MEDS: HYDROmorphone HCL 2 MG TAB PO PRN (00:38)
[2023-12-23 08:02] LABS: Basophils # (auto) 0.01 K/uL (0.00-0.20); Basophils % (auto) 0.1 %; Eosinophils # (auto) 0.01 K/uL (0.00-0.50); Eosinophils % (auto) 0.1 %; Hematocrit (blood only) 31.8 % (37.0-47.0); Hemoglobin 10.9 g/dl (12.0-16.0); Immature Granulocytes % (auto) 0.7 %; Lymphocytes # (auto) 0.72 K/uL (1.20-3.40); Lymphocytes % (auto) 4.8 %; Mean Corpuscular Hemoglobin 35.7 pg (25.0-34.0); Mean Corpuscular Hgb Conc 34.3 g/dL (32.0-36.0); Mean Corpuscular Volume 104.3 fL (80.0-100.0); Mean Platelet Volume 11.2 fL (9.4-12.4); Monocytes # (auto) 0.65 K/uL (0.11-0.59); Monocytes % (auto) 4.3 %; Neutrophils # (auto) 13.62 K/uL (1.40-6.50); Nucleated RBC # (auto) 0.02 K/uL (0.00-0.12); Nucleated RBC % (auto) 0.1 %; Platelet Count 139 K/uL (130-400); RDW Coefficient of Variation 19.1 % (11.5-14.5); RDW Standard Deviation 65.8 fL (36.4-46.3); Red Blood Count 3.05 M/uL (4.20-5.40); White Blood Count 15.11 K/ul (4.8-10.8)
[2023-12-23 08:23] LABS: Albumin Level 3.1 gm/dl (3.4-5.0); BUN Creatinine Ratio 20.9 (10-20); Calcium 8.3 mg/dl (8.6-10.3); Creatinine Clr Calc Pharmacy 9.5 ml/min; Est GFR (African American) 9.4 ml/min; Est GFR (Non-African American) 8.1 ml/min
--- NOTE | 2023-12-23 09:20 | Nephrology Progress Note ---
Date of Service December 23, 2023 Assessment & Plan (1) ESRD (end stage renal disease): Plan: * Outpatient HD Rx: M&F [facility] 2.5hr, 2K 2Ca, F-180NR. EDW 90 kg. Access R IJ TCC. * Volume status remains well controlled. Large amount of urine following furosemide yesterday. The diuretic will be held. She appears intravascularly contracted. Crit-line applied for HD today. * Continued weight loss noted. Appetite is poor. Very low solute intake and persistent hyponatremia despite 1.2 L daily fluid restriction. * Mild hyperkalemia yesterday treated with Lokelma x 1 dose and furosemide. I discussed with Pauline again today that ultimately more frequent dialysis may provide better control of her metabolic abnormalities. She was receptive to a MWF dialysis schedule. We will try moving to a MWF and monitor response to treatment. * Orders for HD today were entered into the EHR and reviewed with the short filler bunch machine operator. * Renal diet and 1.2 L daily fluid restriction. (2) Anemia: Plan: * Outpatient Rx: Venofer 100 mg IVP with HD and Micera 30 IVP q 2 weeks with HD * Epogen 79792 units with HD 06/20 * Hgb at goal now (3) Metastatic cancer to spine: (4) Sacral ulcer: (5) Breast cancer: Admission and Anticipated Discharge Date Admission Date: December 08, 2023 Subjective No acute events overnight. Pauline states that she had a very good physical therapy session yesterday. She was seen at the start of hemodialysis this AM. During our conversation, she repeated questions and required some reorientation to stay on topic. She generally answered questions appropriately. She denied significant pain. Her nurse reported a large amount of urine output following furosemide yesterday. Appetite remains very poor. I/O not accurately documented. Review of Systems Review of Systems: All systems reviewed & are unremarkable except as noted in HPI & below Physical Exam Constitutional: well developed and + morbidly obese; no acute distress Eyes: + anicteric sclerae; no corneal abnormal ity ENMT: Mouth: + dry oral mucous membranes Neck: normal visual inspection, trachea midline and + thick neck Respiratory: normal respiratory effort Auscultation: lungs clear to auscultation bilaterally Cardiovascular: Rate/Rhythm: + irregularly irregular Heart Sounds: normal S1 and normal S2 Extremities: + pedal edema Musculoskeletal: Extremities: no cyanosis and no clubbing Skin: normal turgor; no lesions and no jaundice Neurologic: Motor/Sensory: + fasciculations; no tremor and no asterixis Psychiatric: Orientation: alert and oriented x 3 Results & Data Vital Signs (Past 12 Hours) Vital Signs Temp Pulse Pulse Resp BP BP Pulse Ox 12/23/23 07:34 36.4 C L 91 H 18 107/70 97 12/23/23 07:34 104 H 12/23/23 04:00 36.7 C 89 18 111/71 97 12/22/23 23:43 85 12/22/23 23:00 36.6 C 78 18 111/73 100 12/22/23 22:37 O2 Del Method O2 Flow Rate 12/23/23 07:34 Nasal Cannula 2 12/23/23 07:34 12/23/23 04:00 Nasal Cannula 2 12/22/23 23:43 12/22/23 23:00 Nasal Cannula 2 12/22/23 22:37 Nasal Cannula 2 Laboratory Results Laboratory Results - last 24 hr 12/22/23 12/22/23 12/22/23 12:08 17:10 20:31 WBC RBC Hgb Hct MCV MCH MCHC RDW Std Deviation RDW Coeff of Amparo Plt Count MPV Immature Gran % (Auto) Neut % (Auto) Lymph % (Auto) [place] % (Auto) Eos % (Auto) Baso % (Auto) Neut # (Auto) Lymph # (Auto) [place] # (Auto) Eos # (Auto) Baso # (Auto) Immature Gran # (Auto) Absolute Nucleated RBC Nucleated RBC % (auto) Sodium Potassium Chloride Carbon Dioxide Anion Gap BUN Creatinine Est Cr Clr Drug Dosing Est GFR ( Amer) Est GFR (Non-Af Amer) BUN/Creatinine Ratio Glucose POC Glucose 210 H 236 H 147 H Calcium Phosphorus Albumin 12/23/23 12/23/23 07:40 07:54 WBC 15.11 H RBC 3.05 L Hgb 10.9 L Hct 31.8 L MCV 104.3 H MCH 35.7 H MCHC 34.3 RDW Std Deviation 65.8 H RDW Coeff of Amparo 19.1 H Plt Count 139 MPV 11.2 Immature Gran % (Auto) 0.7 Neut % (Auto) 90.0 Lymph % (Auto) 4.8 [place] % (Auto) 4.3 Eos % (Auto) 0.1 Baso % (Auto) 0.1 Neut # (Auto) 13.62 H Lymph # (Auto) 0.72 L [place] # (Auto) 0.65 H Eos # (Auto) 0.01 Baso # (Auto) 0.01 Immature Gran # (Auto) 0.10 Absolute Nucleated RBC 0.02 Nucleated RBC % (auto) 0.1 Sodium 125 L Potassium 5.0 Chloride 86 L Carbon Dioxide 23 Anion Gap 16 H BUN 102 H Creatinine 4.87 H* D Est Cr Clr Drug Dosing 9.5 Est GFR ( Amer) 9.4 Est GFR (Non-Af Amer) 8.1 BUN/Creatinine Ratio 20.9 H Glucose 104 H POC Glucose 125 H Calcium 8.3 L Phosphorus 5.0 H Albumin 3.1 L PG Care Time/CCT Total # of Minutes Spent Total Time Spent with Patient: Total time spent is greater than 50% in coordination of care (as documented) at patient's floor/unit and/or counseling patient: Coding Level of Care Code 67324 SUB INP/OBS CARE 350MIN Diagnoses ESRD (end stage renal disease) N18.6 Anemia D64.9 Metastatic cancer to spine C79.51 Sacral ulcer L98.429 Breast cancer C50.912 Breast location: unspecified site of breast Estrogen receptor status: unspecified Laterality: left Patient sex: female (5) Breast cancer Breast location: unspecified site of breast Estrogen receptor status: unspecified Laterality: left Patient sex: female Qualified Code(s): C50.912 - Malignant neoplasm of unspecified site of left female breast
[2023-12-23] MEDS: dexAMETHasone 4 MG in SYRINGE 0 ML IV SCH (13:24)
--- NOTE | 2023-12-23 19:19 | XRay Report ---
XR chest 1V portable HISTORY: b/l rales, hypoxia COMPARISON: Chest 11/28/2023. FINDINGS: No pneumothorax. The heart remains enlarged. There are low lung volumes. A right jugular ca theter terminates in the SVC. Postoperative changes within the right humerus again noted. There is in terval progression of the moderate pulmonary edema and small bilateral pleural effusions. IMPRESSION: Interval progression of the moderate pulmonary edema and small bilateral pleural effusions. ACT 112: Negative or not required by law. Electronically signed by: Duran Adhikari M.D. 12/23/2023 7:18 PM
[2023-12-23 19:34] LABS: Base Excess VBG -1.5 mEq/L; HCO3 VBG 24 mmol/L; PCO2 VBG 44 mmHg (38-50); PO2 VBG 47 mmHg; pH VBG 7.35 (7.36-7.41)
--- NOTE | 2023-12-23 19:53 | Hospitalist Progress Note ---
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 Had been on fentanyl patch with improved pain. The fentanyl patch was weaned off over last weekend as it was causing excess sedation, confusion and potentially low BP. Remains on IV dexamethasone BID. Weaned to once daily dosing. Will cut dose to 2mg daily. Radiating pain to the b/l groin sounds like radicular pain from the l-spine -- this symptom has improved. Unfortunately she has had significant lethargy with either IV or PO dilaudid to the point where it is interfering with eating, breathing etc. will hold all forms of dilaudid. stop tylenol. change to norco's 7.5mg q6h prn. will have to inquire with [facility] to see if they can compound morphine into gel form. (3) Acute hip pain, bilateral: Plan: resolved s/p b/l intra-articular hip injections by IR on 11/30/23 suspect that her b/l groin pain was referred pain from the lumbar spine rather than from the hips (4) ESRD needing dialysis: Plan: Appreciate ongoing nephrology assistance s/p HD today CXR obtained today due to worsening lethargy and to ensure no pneumonia -- none seen, but there is pulm edema Dr Glass is encouraging patient to allow HD 3 days/week rather than 2 (5) Atrial fibrillation: Plan: metoprolol has been on hold due to hypotension did convert back to a.fib 12/20/23 am but she remains rate controlled cont to monitor carefully is not on chronic anticoagulation - uncertain why (6) Heart failure: Plan: chronic diastolic CHF volume control via HD lasix/metoprolol have been on hold due to recent hypotension (7) Type 2 diabetes mellitus: Plan: BSGs satisfactory cont lantus/cont novolog (8) Transaminitis: Plan: uncertain etiology but resolved (9) Breast cancer: Plan: dx 2020; now metastatic to lung, bone; ?lymph nodes (based on most recent CT a/p - mild enlarged retroperitoneal nodes); ?liver follows with [facility]; injections in [place] on fulvestrant monthly; given Monday 12/18 started on 10mg prednisone for hypercalcemia recently?? currently on 5mg PO daily at baseline but receiving stress dose steroids with IV dex for her back pain (10) Pleural effusion: Plan: o2 sats stable R>L follow clinically HD for volume control - can't rule out that effusions aren't malignant but less likely (11) Leukocytosis: Plan: starting to improve 2nd to steroids vs wound infection vs combination of factors did have enterococcal UTI and 1/4 blood cx's + for GPC chains during previous admission in early November. blood cx's remain negative attempted to get urine via straight cath but unsuccessful ertapenem is being used for buttock decubitus ulcer infection - ertapenem will cover the urinary tract if infection is present there changing ertapenem to IV cipro to narrow the spectrum (12) Hyponatremia: Plan: present since 2022 likely due to ESRD status, lasix usage, etc worse today - 125 this am, but did improve to 130 post-HD likely not contributing to altered MS as the Na level improved and her MS did not change (13) Encephalopathy: Plan: narcotics likely the largest factor contributing can't rule out infection (buttock wound infection) contributing ammonia wnl VBG without hypercapnia crp 3 procal negative could consider head imaging in light of progressive, metastatic breast ca but the above factors are the more likely culprits - thus, hold off for now cont IV abx for buttock wounds follow Na level (14) MCKENZIE (nonalcoholic steatohepatitis): Plan: this will make her susceptible to the effects of narcotics ammonia wnl (15) Mobitz type 1 second degree AV block: Plan: seen on tele earlier this admission; no Rx needed no higher block seen (16) Hypotension: Plan: resolved will attempt to resume low-dose metoprolol soon defer lasix use to nephrology (17) Thrombocytopenia: Plan: consumptive due to the ecchymoses in abdominal wall? other? platelet count only mildly low but stable HIT unlikely cont heparin SC cautiously - high risk of DVT due to bed-bound status, stage 4 breast ca, etc (18) Skin ulcer of abdominal wall: Plan: due to immobility, heavy weight of pannus on this region, moisture, etc wound care recs appreciated (19) Ecchymoses, spontaneous: Plan: due to "renal platelets"? other? fortunately unchanged and no worse than prior exams Plan VTE prophylaxis: Heparin SC q12 pt's spouse updated at bedside prognosis remains very poor overall she continues to struggle on multiple fronts Admission and Anticipated Discharge Date Admission Date: December 08, 2023 Subjective patient very lethargic during the visit could hardly stay awake while I visited with her she would open her eyes but had a glazed-over look and would fall asleep quickly it was hard for her to have a conversation staff report that early this am she was awake and alert required a couple of doses of PO dilaudid today due to severe 10/10 buttock pain earlier in the day went to HD -- came back very lethargic did not eat breakfast or lunch "not hungry" she stated spouse asks about he compounded morphine gel - pharmacy here unable to compound such [facility] possibly can do it Review of Systems Review of Systems: Unobtainable due to cognitive status Physical Exam Physical Exam: gen - obese, lethargic - worse than yesterday mouth - MM still VERY dry neck - no JVD heart - RRR, s1 s2, 1/6 LUCIANO LSB lungs - decreased BS right base, b/l crackles, when she is sleeping she has subcostal retractions and pursed lip breathing abd - soft NT ND BS+ ext - pulses 2+ b/l, no edema chest - HD catheter present; clean/dry - right upper chest skin - ecchymoses along lower abdominal wall pannus unchanged; multiple ulcerations under the skin folds of lower pannus/groin covered with a wicking material supplied by wound care psych - lethargic Results & Data Results & Data Vital Signs (Past 12 Hours) Vital Signs Temp Pulse Pulse Resp BP BP Pulse Ox 12/23/23 16:21 12/23/23 16:07 36.5 C 76 18 107/61 97 12/23/23 15:34 84 12/23/23 13:10 36.6 C 67 93/56 L 12/23/23 12:54 36.6 C 59 L 93/56 L 12/23/23 12:48 78 91/58 L 12/23/23 12:30 87 93/56 L 12/23/23 12:00 92 H 111/21 L 12/23/23 11:30 73 103/54 L 12/23/23 11:00 93 H 93/45 L 12/23/23 10:30 84 101/62 12/23/23 10:00 93 H 106/60 12/23/23 09:30 94 H 112/65 12/23/23 09:17 90 112/69 12/23/23 08:55 36.4 C L 59 L O2 Del Method O2 Flow Rate 12/23/23 16:21 Nasal Cannula 2 12/23/23 16:07 Room Air 12/23/23 15:34 12/23/23 13:10 12/23/23 12:54 12/23/23 12:48 12/23/23 12:30 12/23/23 12:00 12/23/23 11:30 12/23/23 11:00 12/23/23 10:30 12/23/23 10:00 12/23/23 09:30 12/23/23 09:17 12/23/23 08:55 Laboratory Results Laboratory Results - last 24 hr 12/22/23 12/23/23 12/23/23 20:31 07:40 07:54 WBC 15.11 H RBC 3.05 L Hgb 10.9 L Hct 31.8 L MCV 104.3 H MCH 35.7 H MCHC 34.3 RDW Std Deviation 65.8 H RDW Coeff of Amparo 19.1 H Plt Count 139 MPV 11.2 Immature Gran % (Auto) 0.7 Neut % (Auto) 90.0 Lymph % (Auto) 4.8 Marshall % (Auto) 4.3 Eos % (Auto) 0.1 Baso % (Auto) 0.1 Neut # (Auto) 13.62 H Lymph # (Auto) 0.72 L Marshall # (Auto) 0.65 H Eos # (Auto) 0.01 Baso # (Auto) 0.01 Immature Gran # (Auto) 0.10 Absolute Nucleated RBC 0.02 Nucleated RBC % (auto) 0.1 VBG pH VBG pCO2 VBG pO2 VBG HCO3 VBG O2 Saturation VBG Base Excess Sodium 125 L Potassium 5.0 Chloride 86 L Carbon Dioxide 23 Anion Gap 16 H BUN 102 H Creatinine 4.87 H* D Est Cr Clr Drug Dosing 9.5 Est GFR ( Amer) 9.4 Est GFR (Non-Af Amer) 8.1 BUN/Creatinine Ratio 20.9 H Glucose 104 H POC Glucose 147 H 125 H Calcium 8.3 L Phosphorus 5.0 H Albumin 3.1 L TSH 12/23/23 12/23/23 12/23/23 13:53 17:12 19:15 WBC RBC Hgb Hct MCV MCH MCHC RDW Std Deviation RDW Coeff of Amparo Plt Count MPV Immature Gran % (Auto) Neut % (Auto) Lymph % (Auto) Marshall % (Auto) Eos % (Auto) Baso % (Auto) Neut # (Auto) Lymph # (Auto) Marshall # (Auto) Eos # (Auto) Baso # (Auto) Immature Gran # (Auto) Absolute Nucleated RBC Nucleated RBC % (auto) VBG pH 7.35 L VBG pCO2 44 VBG pO2 47 VBG HCO3 24 VBG O2 Saturation 80.0 VBG Base Excess -1.5 Sodium 130 L Potassium Chloride Carbon Dioxide Anion Gap BUN Creatinine Est Cr Clr Drug Dosing Est GFR ( Amer) Est GFR (Non-Af Amer) BUN/Creatinine Ratio Glucose POC Glucose 83 117 H Calcium Phosphorus Albumin TSH Pending PG Care Time/CCT Total # of Minutes Spent Total Time Spent with Patient: Total time spent is greater than 50% in coordination of care (as documented) at patient's floor/unit and/or counseling patient: Coding Level of Care Code 33299 SUB INP/OBS CARE 3/50MIN Diagnoses Decubitus ulcer of buttock, unstageable L89.300 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 M84.58XA; C79.51 Acute hip pain, bilateral M25.551; M25.552 ESRD needing dialysis N18.6; Z99.2 Atrial fibrillation I48.91 Heart failure I50.9 Type 2 diabetes mellitus E11.9 Transaminitis R74.01 Breast cancer C50.912 Breast location: unspecified site of breast Estrogen receptor status: unspecified Laterality: left Patient sex: female Pleural effusion J90 Leukocytosis D72.829 Hyponatremia E87.1 Encephalopathy G93.40 MCKENZIE (nonalcoholic steatohepatitis) K75.81 Mobitz type 1 second degree AV block I44.1 Hypotension I95.9 Thrombocytopenia D69.6 Skin ulcer of abdominal wall L98.499 Ecchymoses, spontaneous R23.3 (9) Breast cancer Breast location: unspecified site of breast Estrogen receptor status: unspecified Laterality: left Patient sex: female Qualified Code(s): C50.912 - Malignant neoplasm of unspecified site of left female breast
[2023-12-23 20:10] LABS: Thyroid Stimulating Hormone 0.354 uIu/ml (0.300-4.500)
--- NOTE | 2023-12-24 08:56 | Nephrology Progress Note ---
Date of Service December 24, 2023 Assessment & Plan (1) ESRD (end stage renal disease): Plan: * Miss Beyer was last dialyzed 12/23/23 for 2 L UF. There were no complications. IJ TCC functioned well * Outpatient HD Rx: M&F [facility] [place] 2.5hr, 2K 2Ca, F-180NR. EDW 90 kg. Access R IJ TCC. * Discussed electrolyte disturbance (hyponatremia, hyperkalemia) throughout this hospitalization and need for K binding therapy that causes diarrhea. Explained that patient would benefit from transition to 3x/week HD. Miss Beyer and Adele are receptive to this change * Awaiting PRP results this am, however volume status is acceptable. Plan for supportive care this weekend and transition to MWF HD this coming week (2) Anemia: Plan: * Outpatient Rx: Venofer 100 mg IVP with HD and Micera 30 IVP q 2 weeks with HD * Will obtain H&H in am (3) Sacral ulcer: Plan: * Continue measures to reduce pressure at sacral decubitus * Consider consultation w/ wound care if not already done (topical lidocaine or MS ointment?) (4) Breast cancer: (5) Metastatic cancer to spine: Admission and Anticipated Discharge Date Admission Date: December 08, 2023 Subjective Miss Beyer was evaluated in her hospital room this morning. workforce staffing advisor reported that they had just repositioned her and provided her with a dose of oral Alexander. Miss Beyer was very uncomfortable complaining of pain from her decubitus site. Review of Systems Constitutional: no fever Eyes: no problem reported Ear, Nose, Mouth, Throat: no problem reported Respiratory: no cough and no dyspnea Cardiovascular: no chest pain Gastrointestinal: no abdominal pain, no nausea, no vomiting and no diarrhea/loose stools Integumentary: no rash Physical Exam Constitutional: + in distress (pain related to decubitus ulcer) Eyes: PERRL, conjunctivae normal, anicteric sclerae ENMT: external ear and nose normal, oropharynx normal Neck: trachea midline, no thyromegaly Respiratory: normal respiratory effort, lungs clear to auscultation Cardiovascular: RRR, no murmur, no edema Gastrointestinal (Abdomen): normal bowel sounds, soft, nontender, no hepatosplenomegaly Skin: no rashes, warm and dry Neurologic: Speech / Cognition: normal speech and normal cognition Psychiatric: Affect: + depressed affect Results & Data Vital Signs (Past 12 Hours) Vital Signs Temp Pulse Pulse Pulse Resp BP Pulse Ox 12/24/23 07:33 36.6 C 81 17 116/75 97 12/24/23 04:21 36.4 C L 86 20 118/72 98 12/24/23 00:00 78 12/23/23 23:38 36.6 C 80 20 116/71 95 12/23/23 22:00 O2 Del Method O2 Flow Rate 12/24/23 07:33 Nasal Cannula 0.5 12/24/23 04:21 Nasal Cannula 2 12/24/23 00:00 12/23/23 23:38 Nasal Cannula 2 12/23/23 22:00 Nasal Cannula 2 Laboratory Results Laboratory Results - last 24 hr 12/23/23 12/23/23 12/23/23 13:53 17:12 19:15 VBG pH 7.35 L VBG pCO2 44 VBG pO2 47 VBG HCO3 24 VBG O2 Saturation 80.0 VBG Base Excess -1.5 Sodium 130 L POC Glucose 83 117 H TSH 0.354 12/23/23 12/24/23 20:11 08:22 VBG pH VBG pCO2 VBG pO2 VBG HCO3 VBG O2 Saturation VBG Base Excess Sodium POC Glucose 135 H 134 H TSH PRP - pending PG Care Time/CCT Total # of Minutes Spent Total Time Spent with Patient: Total time spent is greater than 50% in coordination of care (as documented) at patient's floor/unit and/or counseling patient: Coding Level of Care Code 83369 SUB INP/OBS CARE 3/50MIN Diagnoses ESRD (end stage renal disease) N18.6 Anemia D64.9 Sacral ulcer L98.429 Breast cancer C50.912 Breast location: unspecified site of breast Estrogen receptor status: unspecified Laterality: left Patient sex: female Metastatic cancer to spine C79.51 (4) Breast cancer Breast location: unspecified site of breast Estrogen receptor status: unspecified Laterality: left Patient sex: female Qualified Code(s): C50.912 - Malignant neoplasm of unspecified site of left female breast
[2023-12-24] MEDS: HYDROCODONE/ACETAMINOPHEN 7.5/325MG TAB PO PRN (09:17)
[2023-12-24] MEDS: HYDROmorphone INJ 0.5 MG/0.5 ML SYR IV PRN (10:03)
[2023-12-24] MEDS: dexAMETHasone 2 MG in SYRINGE 0 ML IV SCH (11:15)
[2023-12-24] MEDS: HYDROmorphone HCL 2 MG TAB PO PRN (13:51)
[2023-12-24] MEDS: LIDOCAINE 2% JELLY 5 ML TUBE EXT SCH (15:05)
[2023-12-24 15:51] LABS: BUN Creatinine Ratio 18.2 (10-20); Calcium 8.7 mg/dl (8.6-10.3); Creatinine Clr Calc Pharmacy 13.5 ml/min; Est GFR (African American) 14.5 ml/min; Est GFR (Non-African American) 12.5 ml/min; Potassium 4.5 mmol/L (3.5-5.1)
[2023-12-24] MEDS: PANTOprazole 40 MG TAB PO STA (17:07)
[2023-12-24] MEDS: KETOROLAC TROMETHAMINE 15 MG/ML VIAL IV ONE (17:07)
[2023-12-24] MEDS: CIPROFLOXACIN / D5W 400 MG/200 ML BAG IV SCH (17:08)
--- NOTE | 2023-12-24 18:25 | Hospitalist Progress Note ---
Date of Service December 24, 2023 Assessment & Plan (1) Decubitus ulcer of buttock, unstageable: Plan: b/l buttock decubitus ulcers continue frequent turning and repositioning continue wound management as advised by the wound care team different bed has been ordered to offload the ulcers appreciate palliative care assistance with pain meds pt's wound cx grew proteus and e.coli s/p 3 days of IV ertapenem 500mg daily change to cipro 400mg daily IV starting later today pain in buttock continues to be an issue ordered lidocaine jelly prn to jeana-wound areas Dr Sewell suggested use of morphine gel which needs to be compounded [facility] any medicines Journeyman Machinist from [facility] stated that [facility] in [place] now compounds I called [facility] - their compounding specialists won't be back until Tuesday - will call again then today - attempted use of norco which provided no pain relief thus, norco d/c changed dilaudid 1 and 2mg tabs by mouth to 0.5mg prn (to see if lower dose gives pain relief without causing too much lethargy) (2) 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 Had been on fentanyl patch with improved pain. The fentanyl patch was weaned off over last weekend as it was causing excess sedation, confusion and potentially low BP. Remains on IV dexamethasone 2mg daily. Radiating pain to the b/l groin sounds like radicular pain from the l-spine -- this symptom has improved. Cont gabapentin 100mg TID. See #1 re: morphine gel. See #1 re: IV/PO narcotics. (3) Acute hip pain, bilateral: Plan: resolved s/p b/l intra-articular hip injections by IR on 11/30/23 suspect that her b/l groin pain was referred pain from the lumbar spine rather than from the hips themselves (4) ESRD needing dialysis: Plan: Appreciate ongoing nephrology assistance s/p HD yesterday CXR obtained on 12/22 due to worsening lethargy and to ensure no pneumonia -- none seen, but there was pulm edema Dr Glass is encouraging patient to allow HD 3 days/week rather than 2 to keep fluid balance (5) Atrial fibrillation: Plan: metoprolol has been on hold due to hypotension did convert back to a.fib 12/20/23 am but she remains rate controlled without the metoprolol cont to monitor carefully is not on chronic anticoagulation - uncertain why (6) Heart failure: Plan: chronic diastolic CHF volume control via HD lasix/metoprolol have been on hold due to recent hypotension (7) Type 2 diabetes mellitus: Plan: BSGs satisfactory cont lantus/cont novolog (8) Transaminitis: Plan: uncertain etiology but resolved (9) Breast cancer: Plan: dx 2020; now metastatic to lung, bone; ?lymph nodes (based on most recent CT a/p - mild enlarged retroperitoneal nodes); ?liver follows with [facility]; injections in [place] on fulvestrant monthly; given Monday 12/18 started on 10mg prednisone for hypercalcemia recently?? currently on 5mg PO daily at baseline but receiving stress dose steroids with IV dex for her back pain I am quite concerned about her overall well-being at this time She has failure to thrive, intractable pain, extreme lethargy due to numerous narcotics, cannot ambulate comfortably, etc This is all in the face of stage 4 breast ca Expressed my concerns to the pt's spouse, Adele Appreciate palliative care consult and assistance prognosis is poor (10) Pleural effusion: Plan: o2 sats stable R>L follow clinically HD for volume control - can't rule out that effusions aren't malignant but less likely (11) Leukocytosis: Plan: improving 2nd to steroids vs wound infection vs combination of factors did have enterococcal UTI and 1/4 blood cx's + for GPC chains during previous admission in early November. blood cx's remain negative attempted to get urine via straight cath but unsuccessful changing ertapenem to IV cipro today for buttock wound infection (12) Hyponatremia: Plan: present since 2022 likely due to ESRD status, lasix usage, etc 130 today likely not contributing to altered MS as the Na level improved and her MS did not change (13) Encephalopathy: Plan: narcotics likely the largest factor contributing can't rule out infection (buttock wound infection) contributing ammonia wnl VBG without hypercapnia crp 3 procal negative could consider head imaging in light of progressive, metastatic breast ca but the above factors are the more likely culprits - thus, hold off for now cont IV abx for buttock wounds follow Na level (14) MCKENZIE (nonalcoholic steatohepatitis): Plan: this will make her susceptible to the effects of narcotics ammonia has been wnl (15) Mobitz type 1 second degree AV block: Plan: seen on tele earlier this admission; no Rx needed no higher block seen (16) Hypotension: Plan: resolved will attempt to resume low-dose metoprolol soon defer lasix use to nephrology (17) Thrombocytopenia: Plan: consumptive due to the ecchymoses in abdominal wall? other? platelet count only mildly low but stable HIT unlikely cont heparin SC cautiously - high risk of DVT due to bed-bound status, stage 4 breast ca, etc (18) Skin ulcer of abdominal wall: Plan: due to immobility, heavy weight of pannus on this region, moisture, etc wound care recs appreciated (19) Ecchymoses, spontaneous: Plan: due to "renal platelets"? other? fortunately unchanged and no worse than prior exams Plan VTE prophylaxis: Heparin SC q12 pt's spouse updated at bedside extensively multiple phone calls and Sigel correspondences today complex care coordination prognosis remains very poor Admission and Anticipated Discharge Date Admission Date: December 08, 2023 Subjective during my visit patient was moaning in pain this is despite a dose of PO dilaudid about 20-30 min prior Pauline has had no appetite today - 0% intake noted on nursing flowsheets for breakfast/lunch she had her eyes closed the entire time she spoke once or twice albeit briefly, stating "just please take away the pain" stated the pain was in both hips today and her buttock her spouse, Adele, was at bedside Adele reported feeling frustrated by the lack of pain relief and the ongoing lethargy we discussed the topical morphine gel and the difficulties in getting it compounded in the community tele overnight - a.fib, rates <100 Review of Systems Review of Systems: denied pain in any other location besides the hips, back, and buttocks area Physical Exam Physical Exam: gen - obese, lethargic, moaning mouth - MM still dry neck - no JVD heart - RRR, s1 s2, 1/6 LUCIANO LSB lungs - decreased BS right base, crackles improved today abd - soft NT ND BS+ ext - pulses 2+ b/l, no edema chest - HD catheter present; clean/dry - right upper chest psych - lethargic Results & Data Results & Data Vital Signs (Past 12 Hours) Vital Signs Temp Pulse Pulse Resp BP Pulse Ox O2 Del Method 12/24/23 15:09 78 12/24/23 15:02 36.9 C 88 17 119/77 99 Nasal Cannula 12/24/23 11:23 36.4 C L 88 15 108/68 99 Nasal Cannula 12/24/23 11:05 Nasal Cannula 12/24/23 07:33 36.6 C 81 17 116/75 97 Nasal Cannula 12/24/23 07:00 68 O2 Flow Rate 12/24/23 15:09 12/24/23 15:02 0.5 12/24/23 11:23 0.5 12/24/23 11:05 2 12/24/23 07:33 0.5 12/24/23 07:00 Laboratory Results Laboratory Results - last 24 hr 12/23/23 12/23/23 12/24/23 19:15 20:11 08:22 VBG pH 7.35 L VBG pCO2 44 VBG pO2 47 VBG HCO3 24 VBG O2 Saturation 80.0 VBG Base Excess -1.5 Sodium 130 L Potassium Chloride Carbon Dioxide Anion Gap BUN Creatinine Est Cr Clr Drug Dosing Est GFR ( Amer) Est GFR (Non-Af Amer) BUN/Creatinine Ratio Glucose POC Glucose 135 H 134 H Calcium TSH 0.354 12/24/23 12/24/23 12/24/23 11:53 14:38 17:13 VBG pH VBG pCO2 VBG pO2 VBG HCO3 VBG O2 Saturation VBG Base Excess Sodium 130 L Potassium 4.5 Chloride 94 L Carbon Dioxide 22 Anion Gap 14 H BUN 62 H D Creatinine 3.40 H D Est Cr Clr Drug Dosing 13.5 Est GFR ( Amer) 14.5 Est GFR (Non-Af Amer) 12.5 BUN/Creatinine Ratio 18.2 Glucose 174 H POC Glucose 144 H 165 H Calcium 8.7 TSH PG Care Time/CCT Total # of Minutes Spent Total Time Spent with Patient: Total time spent is greater than 50% in coordination of care (as documented) at patient's floor/unit and/or counseling patient: Coding Level of Care Code 00034 SUB INP/OBS CARE 3/50MIN Diagnoses Decubitus ulcer of buttock, unstageable L89.300 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 M84.58XA; C79.51 Acute hip pain, bilateral M25.551; M25.552 ESRD needing dialysis N18.6; Z99.2 Atrial fibrillation I48.91 Heart failure I50.9 Type 2 diabetes mellitus E11.9 Transaminitis R74.01 Breast cancer C50.912 Breast location: unspecified site of breast Estrogen receptor status: unspecified Laterality: left Patient sex: female Pleural effusion J90 Leukocytosis D72.829 Hyponatremia E87.1 Encephalopathy G93.40 MCKENZIE (nonalcoholic steatohepatitis) K75.81 Mobitz type 1 second degree AV block I44.1 Hypotension I95.9 Thrombocytopenia D69.6 Skin ulcer of abdominal wall L98.499 Ecchymoses, spontaneous R23.3 (9) Breast cancer Breast location: unspecified site of breast Estrogen receptor status: unspecified Laterality: left Patient sex: female Qualified Code(s): C50.912 - Malignant neoplasm of unspecified site of left female breast
[2023-12-25] MEDS: HYDROmorphone INJ 0.5 MG/0.5 ML SYR IV PRN (05:41)
[2023-12-25] MEDS: PANTOprazole 40 MG TAB PO SCH ×2 (08:02→20:52)
[2023-12-25 08:51] LABS: BUN Creatinine Ratio 19.9 (10-20); Blood Urea Nitrogen 72 mg/dl (6-23); Calcium 8.6 mg/dl (8.6-10.3); Carbon Dioxide 21 mmol/L (21-32); Chloride 95 mmol/L (98-107); Creatinine Clr Calc Pharmacy 13.2 ml/min; Est GFR (African American) 13.5 ml/min; Est GFR (Non-African American) 11.7 ml/min; Glucose 133 mg/dl (70-99(Fasting))
--- NOTE | 2023-12-25 08:55 | Nephrology Progress Note ---
Date of Service December 25, 2023 Assessment & Plan (1) ESRD (end stage renal disease): Plan: * Miss Beyer was last dialyzed 12/23/23 for 2 L UF. There were no complications. IJ TCC functioned well * Outpatient HD Rx: M&F [facility] 2.5hr, 2K 2Ca, F-180NR. EDW 90 kg. Access R IJ TCC. * Discussed electrolyte disturbance (hyponatremia, hyperkalemia) throughout this hospitalization and need for K binding therapy that causes diarrhea. Explained that patient would benefit from transition to 3x/week HD. Miss Beyer and Adele are receptive to this change * Awaiting PRP results this am (Na, K redrawn due to hemolysis), however volume status is acceptable. Plan for supportive care this weekend and transition to MWF HD this coming week (2) Anemia: Plan: * Outpatient Rx: Venofer 100 mg IVP with HD and Micera 30 IVP q 2 weeks with HD * Hgb 10. Will provide TUNDE w/ HD tomorrow (3) Sacral ulcer: Plan: * Continue measures to reduce pressure at sacral decubitus * Consider consultation w/ wound care if not already done (patient appears to have responded to topical lidocaine) (4) Breast cancer: (5) Metastatic cancer to spine: Admission and Anticipated Discharge Date Admission Date: December 08, 2023 Subjective Miss Beyer was evaluated in her hospital room this morning. She reports marked improvement in her sacral pain following application of topical lidocaine around the wound Review of Systems Constitutional: no fever Eyes: no problem reported Ear, Nose, Mouth, Throat: no problem reported Respiratory: no cough and no dyspnea Cardiovascular: no chest pain Gastrointestinal: no abdominal pain, no nausea, no vomiting and no diarrhea/loose stools Integumentary: no rash Physical Exam Constitutional: + in distress (pain related to decubitus ulcer but improved this morning) Eyes: PERRL, conjunctivae normal, anicteric sclerae ENMT: external ear and nose normal, oropharynx normal Neck: trachea midline, no thyromegaly Respiratory: normal respiratory effort, lungs clear to auscultation Cardiovascular: RRR, no murmur, no edema Gastrointestinal (Abdomen): normal bowel sounds, soft, nontender, no hepatosplenomegaly Skin: no rashes, warm and dry Neurologic: Speech / Cognition: normal speech and normal cognition Psychiatric: Affect: + depressed affect Results & Data Vital Signs (Past 12 Hours) Vital Signs Temp Pulse Pulse Resp BP Pulse Ox O2 Del Method 12/25/23 07:30 37.0 C 83 17 117/70 98 Nasal Cannula 12/25/23 07:04 83 12/25/23 03:00 36.4 C L 92 H 18 113/69 100 Nasal Cannula 12/24/23 23:00 36.4 C L 85 16 118/72 99 Nasal Cannula O2 Flow Rate 12/25/23 07:30 0.5 12/25/23 07:04 12/25/23 03:00 12/24/23 23:00 Laboratory Results Laboratory Results - last 24 hr 12/24/23 12/24/23 12/24/23 11:53 14:38 17:13 WBC RBC Hgb Hct MCV MCH MCHC RDW Std Deviation RDW Coeff of Amparo Plt Count MPV Absolute Nucleated RBC Nucleated RBC % (auto) Platelet Estimate Sodium 130 L Potassium 4.5 Chloride 94 L Carbon Dioxide 22 Anion Gap 14 H BUN 62 H D Creatinine 3.40 H D Est Cr Clr Drug Dosing 13.5 Est GFR ( Amer) 14.5 Est GFR (Non-Af Amer) 12.5 BUN/Creatinine Ratio 18.2 Glucose 174 H POC Glucose 144 H 165 H Calcium 8.7 12/24/23 12/25/23 12/25/23 20:13 08:00 08:07 WBC Cancelled RBC Cancelled Hgb Cancelled Hct Cancelled MCV Cancelled MCH Cancelled MCHC Cancelled RDW Std Deviation Cancelled RDW Coeff of Amparo Cancelled Plt Count Cancelled MPV Cancelled Absolute Nucleated RBC Cancelled Nucleated RBC % (auto) Cancelled Platelet Estimate Cancelled Sodium TNP Potassium TNP Chloride 95 L Carbon Dioxide 21 Anion Gap TNP BUN 72 H Creatinine 3.61 H Est Cr Clr Drug Dosing 13.2 Est GFR ( Amer) 13.5 Est GFR (Non-Af Amer) 11.7 BUN/Creatinine Ratio 19.9 Glucose 133 H POC Glucose 232 H 133 H Calcium 8.6 12/25/23 08:54 WBC 13.29 H RBC 2.81 L Hgb 10.0 L Hct 30.3 L MCV 107.8 H MCH 35.6 H MCHC 33.0 RDW Std Deviation 71.6 H RDW Coeff of Amparo 19.5 H Plt Count 159 MPV 10.9 Absolute Nucleated RBC 0.03 Nucleated RBC % (auto) 0.2 Platelet Estimate Sodium 130 L Potassium 4.7 Chloride Carbon Dioxide Anion Gap BUN Creatinine Est Cr Clr Drug Dosing Est GFR ( Amer) Est GFR (Non-Af Amer) BUN/Creatinine Ratio Glucose POC Glucose Calcium PG Care Time/CCT Total # of Minutes Spent Total Time Spent with Patient: Total time spent is greater than 50% in coordination of care (as documented) at patient's floor/unit and/or counseling patient: Coding Level of Care Code 04124 SUB INP/OBS CARE 350MIN Diagnoses ESRD (end stage renal disease) N18.6 Anemia D64.9 Sacral ulcer L98.429 Breast cancer C50.912 Breast location: unspecified site of breast Estrogen receptor status: unspecified Laterality: left Patient sex: female Metastatic cancer to spine C79.51 (4) Breast cancer Breast location: unspecified site of breast Estrogen receptor status: unspecified Laterality: left Patient sex: female Qualified Code(s): C50.912 - Malignant neoplasm of unspecified site of left female breast
[2023-12-25 09:10] LABS: Hematocrit (blood only) 30.3 % (37.0-47.0); Mean Corpuscular Hemoglobin 35.6 pg (25.0-34.0); Mean Corpuscular Volume 107.8 fL (80.0-100.0); Mean Platelet Volume 10.9 fL (9.4-12.4); Nucleated RBC # (auto) 0.03 K/uL (0.00-0.12); Nucleated RBC % (auto) 0.2 %; Platelet Count 159 K/uL (130-400); RDW Coefficient of Variation 19.5 % (11.5-14.5); RDW Standard Deviation 71.6 fL (36.4-46.3); Red Blood Count 2.81 M/uL (4.20-5.40); White Blood Count 13.29 K/ul (4.8-10.8)
[2023-12-25] MEDS: KETOROLAC TROMETHAMINE 15 MG/ML VIAL IV ONE (09:20)
[2023-12-25 09:28] LABS: Potassium 4.7 mmol/L (3.5-5.1)
--- NOTE | 2023-12-25 20:10 | Hospitalist Progress Note ---
Date of Service December 25, 2023 Assessment & Plan (1) Decubitus ulcer of buttock, unstageable: Plan: b/l buttock decubitus ulcers continue frequent turning and repositioning continue wound management as advised by the wound care team different bed has been ordered to offload the ulcers appreciate palliative care assistance with pain meds pt's wound cx grew proteus and e.coli s/p 3 days of IV ertapenem 500mg daily changed to cipro 400mg daily IV yesterday; thus, day #2 of such pain in buttock continues to be one of her largest issues ordered lidocaine jelly prn to jeana-wound areas and this is helping thus far Dr Sewell suggested use of morphine gel which needs to be compounded I called [facility] yesterday - they no longer compound any medicines Personal Banking Representative [facility] [place] [facility] stated that [facility] in [place] now compounds I called [facility] - their compounding specialists won't be back until Tuesday - will call again tomorrow Ms Beyer IS tolerating the lower dose of PO dilaudid 0.5mg thus will continue such Gave a small dose of toradol yesterday as her pain yesterday was severe Will give 1 additional dose of such today then stop PPI twice daily has been added for GI prophylaxis Cont dilaudid 0.25mg IV prn for refractory pain to the above regimen (2) 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 Had been on fentanyl patch with improved pain. The fentanyl patch was weaned off last week, however, as it was causing excess sedation, confusion and potentially low BP. Remains on IV dexamethasone 2mg daily. Plan to give tomorrow am then stop. Then continue her usual prednisone but would keep that dose at 10mg/day. Radiating pain to the b/l groin sounds like radicular pain from the l-spine -- this symptom has improved. Pt refusing the gabapentin 100mg TID - stop order placed. See #1 re: morphine gel. See #1 re: IV/PO narcotics. (3) ESRD needing dialysis: Plan: to have HD tomorrow dialyzes in [place] 2x's week - Tue/Tuesday [address] home to [place] (4) Atrial fibrillation: Plan: mostly NSR this admission but converted to a.fib - rate-controlled - a few days ago she is rate-controlled even off of her usual metoprolol (5) Type 2 diabetes mellitus: Plan: Cont lantus Continue Novolog No changes today (6) Transaminitis: Plan: Resolved (7) Breast cancer: Plan: dx 2020; now metastatic to lung, bone (T-spine,L-spine), possibly the liver, etc follows with [facility] Dr Nehal Parks on fulvestrant monthly - received this last week here at [facility] started recently on 10mg prednisone for hypercalcemia is on stress-dose steroids with dexamethasone for bone pain, radicular pain, buttock pain, etc also currently on 5mg PO daily of the prednisone (8) Malignant neoplasm of breast metastatic to bone: Plan: as above (9) Failure to thrive: Plan: 2nd to stage 4 breast ca in the context of severe deconditioning, recurrent prolonged hospital stays, ESRD status on HD, etc poor appetite despite higher-dose steroids Plan VTE prophylaxis: Heparin 5000 units SC BID, but having severe ecchymoses on her abdominal wall from such and oozing after shots Will hold heparin for now Place Knee-high SCDs spoke with Adele, pt's spouse, by phone this evening gave update Admission and Anticipated Discharge Date Admission Date: December 08, 2023 Subjective pain has been relatively controlled this morning use of IV/po dilaudid along with lidocaine jelly - especially the latter on the buttocks region - have helped during the visit she was awake and we had a very lengthy conversation today - first time all week really she continues with no appetite unfortunately denies abd pain just has pain in the groin regions, low back, and buttocks staff have noted worsening ecchymoses of abd wall from her heparin shots she has had such all week but it has worsened tele overnight - a.fib, rates <100 Review of Systems Review of Systems: cv - no cp, no orthopnea pulm - still dyspneic with minimal activity GI - no vomiting Physical Exam Physical Exam: gen - obese, more awake/alert today, comfortable today mouth - MM remain dry neck - no JVD heart - RRR, s1 s2, 1/6 LUCIANO LSB lungs - decreased BS right base, CTA b/l anteriorly and laterally; unable to listen posteriorly abd - soft NT ND BS+ ext - pulses 2+ b/l, no edema chest - HD catheter present; clean/dry - right upper chest skin - extensive ecchymoses most of the abdominal wall/pannus, worse on the left vs the right; optifoam in place over a previous heparin SC shot area; ecchymoses right proximal thigh psych - a/o x 3 today Results & Data Results & Data Vital Signs (Past 12 Hours) Vital Signs Temp Pulse Pulse Resp BP BP Pulse Ox 12/25/23 15:49 12/25/23 15:33 36.5 C 80 16 105/56 L 100 12/25/23 11:33 36.8 C 87 16 121/77 99 12/25/23 10:10 O2 Del Method O2 Flow Rate 12/25/23 15:49 Nasal Cannula 2 12/25/23 15:33 Room Air 12/25/23 11:33 Nasal Cannula 0.5 12/25/23 10:10 Nasal Cannula 2 Laboratory Results Laboratory Results - last 24 hr 12/24/23 12/25/23 12/25/23 20:13 08:00 08:07 Sodium TNP Potassium TNP Chloride 95 L Carbon Dioxide 21 Anion Gap TNP BUN 72 H Creatinine 3.61 H Est Cr Clr Drug Dosing 13.2 Est GFR ( Amer) 13.5 Est GFR (Non-Af Amer) 11.7 BUN/Creatinine Ratio 19.9 Glucose 133 H POC Glucose 232 H 133 H Calcium 8.6 12/25/23 12/25/23 12/25/23 08:54 12:18 16:58 WBC 13.29 H RBC 2.81 L Hgb 10.0 L Hct 30.3 L MCV 107.8 H MCH 35.6 H MCHC 33.0 RDW Std Deviation 71.6 H RDW Coeff of Amparo 19.5 H Plt Count 159 MPV 10.9 Absolute Nucleated RBC 0.03 Nucleated RBC % (auto) 0.2 Platelet Estimate Sodium 130 L Potassium 4.7 Chloride Carbon Dioxide Anion Gap BUN Creatinine Est Cr Clr Drug Dosing Est GFR ( Amer) Est GFR (Non-Af Amer) BUN/Creatinine Ratio Glucose POC Glucose 200 H 220 H Calcium PG Care Time/CCT Total # of Minutes Spent Total Time Spent with Patient: Total time spent is greater than 50% in coordination of care (as documented) at patient's floor/unit and/or counseling patient: Coding Level of Care Code 75437 SUB INP/OBS CARE 2/35MIN Diagnoses Decubitus ulcer of buttock, unstageable L89.300 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
[2023-12-26 06:57] LABS: Anion Gap 16 (3-11); BUN Creatinine Ratio 21.8 (10-20); Blood Urea Nitrogen 88 mg/dl (6-23); Calcium 8.3 mg/dl (8.6-10.3); Carbon Dioxide 17 mmol/L (21-32); Chloride 94 mmol/L (98-107); Creatinine Clr Calc Pharmacy 11.4 ml/min; Est GFR (African American) 11.8 ml/min; Est GFR (Non-African American) 10.2 ml/min; Glucose 118 mg/dl (70-99(Fasting)); Sodium 127 mmol/L (136-145)
[2023-12-26] MEDS ORDERED: SODIUM CHLORIDE 0.9% 1,000 ML IV PRN (07:00)
--- NOTE | 2023-12-26 09:00 | Nephrology Progress Note ---
Date of Service December 26, 2023 Assessment & Plan (1) ESRD (end stage renal disease): Plan: * Will provide HD this am using 140 Na, 2 K bath. Will recheck PRP in am * Miss Beyer is receptive to increasing to 3x/week HD due to electrolyte abnormalities. Will plan next HD on Tue * Outpatient HD Rx: M&F [facility] 2.5hr, 2K 2Ca, F-180NR. EDW 90 kg. Access R IJ TCC (2) Anemia: Plan: * Outpatient Rx: Venofer 100 mg IVP with HD and Micera 30 IVP q 2 weeks with HD * Hgb 10. Will provide TUNDE w/ HD today (3) Sacral ulcer: Plan: * Continue measures to reduce pressure at sacral decubitus * Consider consultation w/ wound care if not already done (patient appears to have responded to topical lidocaine) (4) Breast cancer: (5) Metastatic cancer to spine: Admission and Anticipated Discharge Date Admission Date: December 08, 2023 Subjective Miss Beyer was evaluated in her hospital room this morning. She was awaiting HD this morning. She c/o sacral pain and was requesting application of topical lidocaine around the wound Review of Systems Constitutional: no fever Eyes: no problem reported Ear, Nose, Mouth, Throat: no problem reported Respiratory: no cough and no dyspnea Cardiovascular: no chest pain Gastrointestinal: no abdominal pain, no nausea, no vomiting and no diarrhea/loose stools Integumentary: no rash Physical Exam Constitutional: + in distress (pain related to decubitus ulcer) Eyes: PERRL, conjunctivae normal, anicteric sclerae ENMT: external ear and nose normal, oropharynx normal Neck: trachea midline, no thyromegaly Respiratory: normal respiratory effort, lungs clear to auscultation Cardiovascular: RRR, no murmur, no edema Gastrointestinal (Abdomen): normal bowel sounds, soft, nontender, no hepatosplenomegaly Skin: no rashes, warm and dry Neurologic: Speech / Cognition: normal speech and normal cognition Psychiatric: Affect: + depressed affect Results & Data Vital Signs (Past 12 Hours) Vital Signs Temp Pulse Pulse Resp BP BP Pulse Ox 12/26/23 07:33 36.3 C L 98 H 18 141/76 H 99 12/26/23 03:09 36.3 C L 90 19 111/66 100 12/25/23 23:00 36.5 C 88 16 113/69 98 12/25/23 22:03 O2 Del Method O2 Flow Rate 12/26/23 07:33 Nasal Cannula 2 12/26/23 03:09 Nasal Cannula 2 12/25/23 23:00 Room Air 12/25/23 22:03 Room Air Laboratory Results Laboratory Results - last 24 hr 12/25/23 12/25/23 12/25/23 08:54 12:18 16:58 WBC 13.29 H RBC 2.81 L Hgb 10.0 L Hct 30.3 L MCV 107.8 H MCH 35.6 H MCHC 33.0 RDW Std Deviation 71.6 H RDW Coeff of Amparo 19.5 H Plt Count 159 MPV 10.9 Absolute Nucleated RBC 0.03 Nucleated RBC % (auto) 0.2 Sodium 130 L Potassium 4.7 Chloride Carbon Dioxide Anion Gap BUN Creatinine Est Cr Clr Drug Dosing Est GFR ( Amer) Est GFR (Non-Af Amer) BUN/Creatinine Ratio Glucose POC Glucose 200 H 220 H Calcium 12/25/23 12/26/23 12/26/23 20:30 06:02 07:45 WBC RBC Hgb Hct MCV MCH MCHC RDW Std Deviation RDW Coeff of Amparo Plt Count MPV Absolute Nucleated RBC Nucleated RBC % (auto) Sodium 127 L Potassium TNP Chloride 94 L Carbon Dioxide 17 L Anion Gap 16 H BUN 88 H Creatinine 4.03 H D Est Cr Clr Drug Dosing 11.4 Est GFR ( Amer) 11.8 Est GFR (Non-Af Amer) 10.2 BUN/Creatinine Ratio 21.8 H Glucose 118 H POC Glucose 194 H 142 H Calcium 8.3 L 12/26/23 08:50 WBC Pending RBC Pending Hgb Pending Hct Pending MCV Pending MCH Pending MCHC Pending RDW Std Deviation RDW Coeff of Amparo Plt Count Pending MPV Absolute Nucleated RBC Nucleated RBC % (auto) Sodium Potassium Pending Chloride Carbon Dioxide Anion Gap BUN Creatinine Est Cr Clr Drug Dosing Est GFR ( Amer) Est GFR (Non-Af Amer) BUN/Creatinine Ratio Glucose POC Glucose Calcium 0850 hrs K 4.9 this am PG Care Time/CCT Total # of Minutes Spent Total Time Spent with Patient: Total time spent is greater than 50% in coordination of care (as documented) at patient's floor/unit and/or counseling patient: Coding Level of Care Code 93810 SUB INP/OBS CARE 50MIN Diagnoses ESRD (end stage renal disease) N18.6 Anemia D64.9 Sacral ulcer L98.429 Breast cancer C50.912 Breast location: unspecified site of breast Estrogen receptor status: unspecified Laterality: left Patient sex: female Metastatic cancer to spine C79.51 (4) Breast cancer Breast location: unspecified site of breast Estrogen receptor status: unspecified Laterality: left Patient sex: female Qualified Code(s): C50.912 - Malignant neoplasm of unspecified site of left female breast
[2023-12-26 09:13] LABS: Hematocrit (blood only) 30.2 % (37.0-47.0); Hemoglobin 10.1 g/dl (12.0-16.0); Mean Corpuscular Hemoglobin 36.1 pg (25.0-34.0); Mean Corpuscular Hgb Conc 33.4 g/dL (32.0-36.0); Mean Corpuscular Volume 107.9 fL (80.0-100.0); Mean Platelet Volume 10.8 fL (9.4-12.4); Nucleated RBC # (auto) 0.04 K/uL (0.00-0.12); Nucleated RBC % (auto) 0.3 %; Platelet Count 178 K/uL (130-400); RDW Coefficient of Variation 19.1 % (11.5-14.5); RDW Standard Deviation 71.7 fL (36.4-46.3)
[2023-12-26] MEDS: EPOETIN ALFA 10,000 UNITS/ML VIAL IV ONE (11:23)
[2023-12-26] MEDS: HEPARIN SOD (PORCINE) 1000 UNIT/ML IV ONE (11:24)
[2023-12-26] MEDS: MICONAZOLE NITRATE POWDER 85 GM EXT PRN (20:10)
--- NOTE | 2023-12-26 20:24 | Hospitalist Progress Note ---
Date of Service December 26, 2023 Assessment & Plan (1) Decubitus ulcer of buttock, unstageable: Plan: b/l buttock decubitus ulcers continue frequent turning and repositioning continue wound management as advised by the wound care team appreciate palliative care assistance with pain meds appreciate wound care team assistance pt's wound cx grew proteus and e.coli s/p 3 days of IV ertapenem 500mg daily changed to cipro 400mg daily IV; day #3 of such plan 7-10 days of total abx then stop pain in buttock continues to be one of her largest issues ordered lidocaine jelly prn to jeana-wound areas and this is helping thus far Dr Sewell suggested use of morphine gel which needs to be compounded I called [facility] - they no longer compound any medicines Manager Inside from [facility] stated that [facility] in [place] now compounds I called [facility] today, 12/25 - no answer, left message and left my cell phone # asking for return call Ms Beyer tolerating the lower dose of PO dilaudid 0.5mg better than the previous 1mg and 2mg doses Dr Sewell suggesting we try 0.25mg doses to allow better mentation Corresponded with pharmacy - they would have to order dilaudid liquid to allow doses that small Cont dilaudid 0.25mg IV prn for refractory pain to the above regimen (2) 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 Had been on fentanyl patch with improved pain. The fentanyl patch was weaned off last week, however, as it was causing excess sedation, confusion and potentially low BP. Remains on IV dexamethasone 2mg daily. Stop after today's dose. continue her usual prednisone but would keep that dose at 10mg/day. Radiating pain to the b/l groin sounds like radicular pain from the l-spine -- this symptom has improved. Pt refusing the gabapentin 100mg TID - stop order placed. See #1 re: morphine gel. See #1 re: IV/PO narcotics. (3) ESRD needing dialysis: Plan: s/p HD today dialyzes in [place] 2x's week - Tue/Tuesday nephrology advising to dialyze 3 days per week but I don't think she would tolerate such not even sure that when she gets home she will tolerate any HD moving forward given her current status (4) Atrial fibrillation: Plan: mostly NSR this admission but converted to a.fib - rate-controlled - a few days ago she is rate-controlled even off of her usual metoprolol NOT on chronic anticoagulation (5) Type 2 diabetes mellitus: Plan: Cont lantus Continue Novolog No changes today (6) Transaminitis: Plan: Resolved (7) Breast cancer: Plan: dx 2020; now metastatic to lung, bone (T-spine,L-spine), possibly the liver, etc follows with [facility], Dr Calvert on fulvestrant monthly - received this last week here at [facility] started recently on 10mg prednisone for hypercalcemia is on stress-dose steroids with dexamethasone for bone pain, radicular pain, buttock pain, etc stopping dexamethasone changing back to PO prednisone only and will cont the 10mg daily dose PPI BID for GI prophylaxis (8) Malignant neoplasm of breast metastatic to bone: Plan: as above (9) Failure to thrive: Plan: 2nd to stage 4 breast ca in the context of severe deconditioning, recurrent prolonged hospital stays, ESRD status on HD, severe pain in multiple locations, b/l buttock decubiti, wound infection of buttock, etc very poor appetite prognosis very very poor Plan VTE prophylaxis: heparin SC stopped due to severe bruising of pannus cont Knee-high SCDs spoke with Adele, pt's spouse, by phone this evening once again gave update attempted to contact [facility] in [place] to inquire about their ability to compound morphine into gel form. Had to leave message. Phone # - [phone] I did not hear back on 12/25. appreciate palliative care assistance by Dr Sewell at this time, in light of progressive decline and severe failure to thrive, changing to comfort/full palliative care pathway would likely be best pain management has proven very, very difficult over the last month - without pain meds she is in excruciating pain, often crying/moaning; with pain meds she is severely lethargic/altered Admission and Anticipated Discharge Date Admission Date: December 08, 2023 Subjective pt very confused during the visit she had just returned from dialysis reports "bad morning" due to pain in low back, hips, buttocks, and groin cont with poor appetite was talking about unrelated topics and getting various things confused no new complaints Review of Systems Review of Systems: cv - denies chest pain pulm - denies dyspnea at rest GI - denies nausea, vomiting, or abd pain Physical Exam Physical Exam: gen - obese, awake but very confused, appears comfortable mouth - MM remain dry, no obvious thrush neck - no JVD heart - RRR, s1 s2, 1/6 LUCIANO LSB lungs - decreased BS right base, CTA b/l anteriorly and laterally, no increased work of breathing abd - soft NT ND BS+ ext - pulses 2+ b/l, no edema; SCDs in place chest - HD catheter present; clean/dry - right upper chest skin - extensive ecchymoses most of the abdominal wall/pannus - unchanged; optifoam in place lower midline of abdominal wall pannus; ecchymoses right proximal thigh unchanged psych - oriented to person/place only; very confused Results & Data Results & Data Vital Signs (Past 12 Hours) Vital Signs Temp Pulse Pulse Resp BP BP BP 12/26/23 20:09 36.4 C L 80 20 104/58 L 12/26/23 15:59 36.3 C L 88 20 105/66 12/26/23 11:50 36.3 C L 76 110/56 L 12/26/23 11:30 82 97/57 L 12/26/23 11:00 86 120/47 L 12/26/23 10:30 83 130/54 L 12/26/23 10:00 95 H 124/55 L 12/26/23 09:30 82 109/62 12/26/23 09:17 12/26/23 09:16 82 12/26/23 09:15 36.3 C L 82 Pulse Ox O2 Del Method O2 Flow Rate 12/26/23 20:09 97 Nasal Cannula 12/26/23 15:59 100 Nasal Cannula 2 12/26/23 11:50 12/26/23 11:30 12/26/23 11:00 12/26/23 10:30 12/26/23 10:00 12/26/23 09:30 12/26/23 09:17 Nasal Cannula 2 12/26/23 09:16 12/26/23 09:15 Laboratory Results Laboratory Results - last 24 hr 03/31/24 04/01/24 04/01/24 20:30 06:02 07:45 WBC RBC Hgb Hct MCV MCH MCHC RDW Std Deviation RDW Coeff of Amparo Plt Count MPV Absolute Nucleated RBC Nucleated RBC % (auto) Sodium 127 L Potassium TNP Chloride 94 L Carbon Dioxide 17 L Anion Gap 16 H BUN 88 H Creatinine 4.03 H D Est Cr Clr Drug Dosing 11.4 Est GFR ( Amer) 11.8 Est GFR (Non-Af Amer) 10.2 BUN/Creatinine Ratio 21.8 H Glucose 118 H POC Glucose 194 H 142 H Calcium 8.3 L Hep Bs Antigen Hep Bs Ag Confirmation Hep Bs Antibody, Quant 12/26/23 12/26/23 12/26/23 08:49 08:50 12:14 WBC 13.60 H RBC 2.80 L Hgb 10.1 L Hct 30.2 L MCV 107.9 H MCH 36.1 H MCHC 33.4 RDW Std Deviation 71.7 H RDW Coeff of Amparo 19.1 H Plt Count 178 MPV 10.8 Absolute Nucleated RBC 0.04 Nucleated RBC % (auto) 0.3 Sodium Potassium 4.9 Chloride Carbon Dioxide Anion Gap BUN Creatinine Est Cr Clr Drug Dosing Est GFR ( Amer) Est GFR (Non-Af Amer) BUN/Creatinine Ratio Glucose POC Glucose 119 H Calcium Hep Bs Antigen Pending Hep Bs Ag Confirmation Pending Hep Bs Antibody, Quant Pending 12/26/23 16:49 WBC RBC Hgb Hct MCV MCH MCHC RDW Std Deviation RDW Coeff of Amparo Plt Count MPV Absolute Nucleated RBC Nucleated RBC % (auto) Sodium Potassium Chloride Carbon Dioxide Anion Gap BUN Creatinine Est Cr Clr Drug Dosing Est GFR ( Amer) Est GFR (Non-Af Amer) BUN/Creatinine Ratio Glucose POC Glucose 143 H Calcium Hep Bs Antigen Hep Bs Ag Confirmation Hep Bs Antibody, Quant PG Care Time/CCT Total # of Minutes Spent Total Time Spent with Patient: Total time spent is greater than 50% in coordination of care (as documented) at patient's floor/unit and/or counseling patient: Coding Level of Care Code 69096 SUB INP/OBS CARE 2/35MIN Diagnoses Decubitus ulcer of buttock, unstageable L89.300 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
[2023-12-27] MEDS: predniSONE 10 MG TABLET PO SCH (08:11)
[2023-12-27] MEDS: HYDROmorphone HCL 2 MG TAB PO PRN (08:12)
[2023-12-27 08:59] LABS: Hematocrit (blood only) 31.3 % (37.0-47.0); Mean Corpuscular Hemoglobin 35.7 pg (25.0-34.0); Mean Corpuscular Hgb Conc 31.9 g/dL (32.0-36.0); Mean Corpuscular Volume 111.8 fL (80.0-100.0); Mean Platelet Volume 11.2 fL (9.4-12.4); Nucleated RBC # (auto) 0.08 K/uL (0.00-0.12); Nucleated RBC % (auto) 0.6 %; Platelet Count 147 K/uL (130-400); RDW Coefficient of Variation 19.2 % (11.5-14.5); RDW Standard Deviation 73.8 fL (36.4-46.3)
--- NOTE | 2023-12-27 09:05 | Nephrology Progress Note ---
Date of Service December 27, 2023 Assessment & Plan (1) ESRD (end stage renal disease): Plan: * Discussed dialysis and goals of care at length w/ patient today. Despite feeling poorly, she wishes to continue HD. She is agreeable to MWF HD for 2.5 hours each treatment to maintain her electrolyte balance * Awaiting am labs * Outpatient HD Rx: M&F [facility] 2.5hr, 2K 2Ca, F-180NR. EDW 90 kg. Access R IJ TCC (2) Anemia: Plan: * Outpatient Rx: Venofer 100 mg IVP with HD and Micera 30 IVP q 2 weeks with HD * Hgb 10. Will provide TUNDE w/ HD today (3) Sacral ulcer: Plan: * Continue measures to reduce pressure at sacral decubitus * Continue topical lidocaine q6 hours * Consider consultation w/ wound care if not already done (4) Breast cancer: (5) Metastatic cancer to spine: Admission and Anticipated Discharge Date Admission Date: December 08, 2023 Subjective Miss Beyer was evaluated in her hospital room this morning. She only completed 2.5 hours of dialysis yesterday w/ 1700 cc UF. She reported that it was too painful to stay for her entire treatment and requested to terminate dialysis one hour early. This morning Miss Beyer reports that she had a very bad night. She attributes it to ongoing discomfort from her sacral decubitus and severe fatigue related to dialysis. She stated "dialysis leaves me weak, miserable and in agony!" When asked whether she wishes to continue she responds "I have too, but I just want short treatments!" She claims to only dialyze one hour twice weekly at [facility] (outpatient orders are for 2.5 hours qM/F). Review of Systems Constitutional: no fever Eyes: no problem reported Ear, Nose, Mouth, Throat: no problem reported Respiratory: no cough and no dyspnea Cardiovascular: no chest pain Gastrointestinal: no abdominal pain, no nausea, no vomiting and no diarrhea/loose stools Integumentary: no rash Physical Exam Constitutional: + in distress (pain related to decubitus ulcer) Eyes: PERRL, conjunctivae normal, anicteric sclerae ENMT: external ear and nose normal, oropharynx normal Neck: trachea midline, no thyromegaly Respiratory: normal respiratory effort, lungs clear to auscultation Cardiovascular: RRR, no murmur, no edema Gastrointestinal (Abdomen): normal bowel sounds, soft, nontender, no hepatosplenomegaly Skin: no rashes, warm and dry Neurologic: Speech / Cognition: normal speech and normal cognition Psychiatric: Affect: + depressed affect Results & Data Vital Signs (Past 12 Hours) Vital Signs Temp Pulse Pulse Resp BP BP Pulse Ox 12/27/23 07:52 36.4 C L 83 18 82/55 L 100 12/27/23 07:36 82 12/27/23 07:28 12/27/23 03:22 36.6 C 83 20 97/58 L 100 12/27/23 00:18 86 12/27/23 00:18 12/27/23 00:11 36.8 C 87 20 100/65 99 O2 Del Method O2 Flow Rate 12/27/23 07:52 Room Air 12/27/23 07:36 12/27/23 07:28 Nasal Cannula 2 12/27/23 03:22 Nasal Cannula 2 12/27/23 00:18 12/27/23 00:18 Nasal Cannula 2 12/27/23 00:11 Nasal Cannula 2 Laboratory Results Laboratory Results - last 24 hr 12/26/23 12/26/23 12/26/23 08:49 12:14 16:49 WBC RBC Hgb Hct MCV MCH MCHC RDW Std Deviation RDW Coeff of Amparo Plt Count MPV Absolute Nucleated RBC Nucleated RBC % (auto) Sodium Potassium Chloride Carbon Dioxide Anion Gap BUN Creatinine Est Cr Clr Drug Dosing Est GFR ( Amer) Est GFR (Non-Af Amer) BUN/Creatinine Ratio Glucose POC Glucose 119 H 143 H Calcium Iron TIBC Unsaturated IBC Transferrin % Sat Ferritin Hep Bs Antigen Pending Hep Bs Ag Confirmation Pending Hep Bs Antibody, Quant Pending 12/26/23 12/27/23 12/27/23 20:36 08:13 08:21 WBC 13.80 H RBC 2.80 L Hgb 10.0 L Hct 31.3 L MCV 111.8 H MCH 35.7 H MCHC 31.9 L RDW Std Deviation 73.8 H RDW Coeff of Amparo 19.2 H Plt Count 147 MPV 11.2 Absolute Nucleated RBC 0.08 Nucleated RBC % (auto) 0.6 Sodium Cancelled Potassium Cancelled Chloride Cancelled Carbon Dioxide Cancelled Anion Gap Cancelled BUN Cancelled Creatinine Cancelled Est Cr Clr Drug Dosing Cancelled Est GFR ( Amer) Cancelled Est GFR (Non-Af Amer) Cancelled BUN/Creatinine Ratio Cancelled Glucose Cancelled POC Glucose 178 H 134 H Calcium Cancelled Iron Cancelled TIBC Cancelled Unsaturated IBC Cancelled Transferrin % Sat Cancelled Ferritin Cancelled Hep Bs Antigen Hep Bs Ag Confirmation Hep Bs Antibody, Quant PG Care Time/CCT Total # of Minutes Spent Total Time Spent with Patient: Total time spent is greater than 50% in coordination of care (as documented) at patient's floor/unit and/or counseling patient: Coding Level of Care Code 02481 SUB INP/OBS CARE 3/50MIN Diagnoses ESRD (end stage renal disease) N18.6 Anemia D64.9 Sacral ulcer L98.429 Breast cancer C50.912 Breast location: unspecified site of breast Estrogen receptor status: unspecified Laterality: left Patient sex: female Metastatic cancer to spine C79.51 (4) Breast cancer Breast location: unspecified site of breast Estrogen receptor status: unspecified Laterality: left Patient sex: female Qualified Code(s): C50.912 - Malignant neoplasm of unspecified site of left female breast
[2023-12-27 11:03] LABS: BUN Creatinine Ratio 19.8 (10-20); Est GFR (African American) 16.4 ml/min; Est GFR (Non-African American) 14.1 ml/min; Potassium 4.2 mmol/L (3.5-5.1)
[2023-12-27 12:34] LABS: HBSAG NON-REACTIVE (NON-REACTIVE); Hepatitis B Surface Ab, Quant <5 mIU/mL (> OR = 10)
[2023-12-27] MEDS: HYDROCODONE/ACETAMOPHEN 5/325MG TAB PO PRN (13:26)
--- NOTE | 2023-12-27 15:16 | Hospitalist Progress Note ---
Date of Service December 27, 2023 Assessment & Plan (1) Decubitus ulcer of buttock, unstageable: Plan: b/l buttock decubitus ulcers continue frequent turning and repositioning continue wound management as advised by the wound care team appreciate palliative care assistance with pain meds appreciate wound care team assistance pt's wound cx grew proteus and e.coli s/p 3 days of IV ertapenem 500mg daily changed to cipro 400mg daily IV; day #4 plan 7-10 days of total abx then stop pain in buttock continues to be one of her largest issues ordered lidocaine jelly prn to jeana-wound areas and this is helping thus far Dr Sewell suggested use of morphine gel which needs to be compounded [facility] - they no longer compound any medicines contacted [facility] in [place] to inquire about their ability to compound morphine into gel form. discussed with staff, unfortunately they are unable to do this. the only other compounding pharmacy is [facility] in [place]. Pain control has been challenging because of somnolence and altered mental status on low doses of opioids Discussed with Dr. 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 Had been on fentanyl patch with improved pain. The fentanyl patch was weaned off last week, however, as it was causing excess sedation, confusion and potentially low BP. Treated with IV dexamethasone through 12/25 her usual prednisone 10mg/day. Radiating pain to the b/l groin sounds like radicular pain from the l-spine -- this symptom has improved. had trial of gabapentin, she refused it. See #1 re: morphine gel. See #1 re: IV/PO narcotics. (3) ESRD needing dialysis: Plan: dialyzes in [place] 2x's week - Mon/Tuesday nephrology advising to dialyze 3 days per week but I don't think she would tolerate such not even sure that when she gets home she will tolerate any HD moving forward given her current status (4) Atrial fibrillation: Plan: mostly NSR this admission but converted to a.fib - rate-controlled - a few days ago she is rate-controlled even off of her usual metoprolol NOT on chronic anticoagulation (5) Type 2 diabetes mellitus: Plan: Cont lantus Continue Novolog No changes today (6) Transaminitis: Plan: Resolved (7) Breast cancer: Plan: dx 2020; now metastatic to lung, bone (T-spine,L-spine), possibly the liver, etc follows with [facility], Dr Calvert on fulvestrant monthly - received this last week here at [facility] started recently on 10mg prednisone for hypercalcemia PPI BID for GI prophylaxis (8) Malignant neoplasm of breast metastatic to bone: Plan: as above (9) Failure to thrive: Plan: 2nd to stage 4 breast ca in the context of severe deconditioning, recurrent prolonged hospital stays, ESRD status on HD, severe pain in multiple locations, b/l buttock decubiti, wound infection of buttock, etc very poor appetite prognosis very very poor Plan hyponatremia - improved to 131 today's labs VTE prophylaxis: heparin SC stopped due to severe bruising of pannus cont Knee-high SCDs spoke with Adele, pt's spouse, in person at bedside 4/2 appreciate palliative care assistance by Dr Sewell Admission and Anticipated Discharge Date Admission Date: December 08, 2023 Subjective tolerated dialysis poorly due to pain and fatigue per vacuum kettle cook note, wishes to continue dialysis severe pain currently 9/10 --> 8/10 after vicodin but is sleepy and some words garbled. States pain is in "hips" Physical Exam 2 Physical Exam: PHYSICAL EXAMINATION Last 24h vital signs reviewed, see documentation in flowsheet General: sleeping but aroused to voice HEENT: Normocephalic, atraumatic, pupils round and equal, sclerae anicteric, no conjunctival injection, moist mucus membranes Lungs: "belly breathing" Clear to auscultation bilaterally anteriorly. No RRW Heart: Regular rate and rhythm, no murmurs. No JVD Abdomen: Soft, nontender, nondistended. Bowel sounds present. Extremities: Warm, dry, well-perfused. 2+ extremity edema. Neuro: Sleepy and speech occasionally garbled, oriented to situation, face symmetric, moves 4 extremities Psych: hard to assess r/t sleepiness and pain Results & Data Results & Data Vital Signs (Past 12 Hours) Vital Signs Temp Pulse Pulse Resp BP BP Pulse Ox 12/27/23 11:40 60 17 88/68 L 95 12/27/23 07:52 36.4 C L 83 18 82/55 L 100 12/27/23 07:36 82 12/27/23 07:28 12/27/23 03:22 36.6 C 83 20 97/58 L 100 O2 Del Method O2 Flow Rate 12/27/23 11:40 Room Air 12/27/23 07:52 Room Air 12/27/23 07:36 12/27/23 07:28 Nasal Cannula 2 12/27/23 03:22 Nasal Cannula 2 Laboratory Results 12/27/23 08:21 12/27/23 10:26 PG Care Time/CCT Total # of Minutes Spent Total Time Spent with Patient: I personally spent: 50 minutes today on clinical care activities including: reviewing chart notes and vital signs reviewing labs discussion with benefits sales consultant(s) discussion with daytime caregiver examining and counseling the patient counseling the patient's family discussion with compounding pharmacy staff writing orders documentation Coding Level of Care Code 94069 SUB INP/OBS CARE 3/50MIN Diagnoses Decubitus ulcer of buttock, unstageable L89.300 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
[2023-12-27] MEDS ORDERED: ALBUMIN 25% 25 GM/100 ML VIAL IV SCH (15:30)
--- NOTE | 2023-12-27 18:48 | Palliative Care Progress Note ---
Date of Service December 27, 2023 Assessment & Plan (1) Bilateral buttock pain: Plan: Will give a trial of low dose vicodin and stop dilaudid which continues to cause fatigue/mild confusion I have left message with [facility] in [facility] which has a longtime hx of compounding medications including those for palliative care, wound care and end of life, Awaiting their reply. (2) Weakness generalized: (3) Palliative care by specialist: Plan * Due to her uncontrolled pain, a follow up discussion for ACP was not able to be held. Will plan to reattempt tomorrow. Thank you for allowing us to participate in the ongoing care of this patient. Please don't hesitate to call or page with any additional concerns. Dr. Katiana Sewell DNP Director, Palliative Care Admission and Anticipated Discharge Date Admission Date: December 08, 2023 Subjective pt seen, her is at bedside she c/o increased pain at gluteal wound she is tolerating Abtx and having tougher time with HD but wants to continue and has agreed to TIW sessions but with shorter durations She remains on specialty mattress, unable to independently reposition appetite is ok, trying to eat more supplements we are unable to obtain compounded topical morphine for her wound from the local compounding pharmacies: [facility] said they no longer compound and the [facility] finally answered their phones this afternoon advised it is too expensive so they would not offer it Review of Systems Review of Systems: All systems reviewed & are unremarkable except as noted in Subjective Physical Exam Constitutional: + ill appearing, + physical limitations, + frail appearing and + malnourished Eyes: PERRL and EOM intact bilaterally ENMT: Mouth: + muffled voice, + dry oral mucous membranes and + poor dentition Neck: trachea midline, no thyromegaly + short neck Thyroid: normal thyroid Respiratory: normal respiratory effort, able to speak in complete sentences and symmetric chest movement Auscultation: + diminished lung sounds and + crackles Cardiovascular: Rate/Rhythm: regular rate and regular rhythm Heart Sounds: normal S1 and normal S2 Palpation: normal PMI Extremities: + varicosities venous insuff changes BLE, trace edema Gastrointestinal (Abdomen): Inspection/Auscultation: + abdomen distended, normal bowel sounds and + significant pannus Percussion/Palpation: abdomen soft and normal to percussion multiple open areas along pannus skin fold, see wound assessment photo. peripheral erythema noted. Musculoskeletal: signif deconditioning and generalized weakness Skin: + turgor decreased, + skin tightening, + dry skin and + ecchymosis Neurologic: PERRL, EOMI, accommodation nl, no face palsy, no dysarthria AAOx3 Psychiatric: Orientation: alert and oriented x 3 Apperance: appropriately dressed and appropriately groomed Eye Contact: + fair eye contact Speech: normal rate/rhythm/volume of speech Affect: + depressed affect Mood: + depressed mood Thought Process: linear/logical thought process Thought Content: + loneliness Suicidal Thoughts: denies suicidal thoughts, denies suicidal plan and denies suicidal intent Cognition: recent memory grossly intact, remote memory grossly intact, attention grossly intact and language grossly intact Estimated Intelligence: + above average estimated intelligence Insight: good insight Judgment: excellent judgement Results & Data Vital Signs (Past 12 Hours) Vital Signs Temp Pulse Pulse Resp BP BP Pulse Ox 12/27/23 15:35 36.5 C 83 18 102/60 100 12/27/23 15:14 78 12/27/23 11:40 60 17 88/68 L 95 12/27/23 07:52 36.4 C L 83 18 82/55 L 100 12/27/23 07:36 82 12/27/23 07:28 O2 Del Method O2 Flow Rate 12/27/23 15:35 Nasal Cannula 2 12/27/23 15:14 12/27/23 11:40 Room Air 12/27/23 07:52 Room Air 12/27/23 07:36 12/27/23 07:28 Nasal Cannula 2 Laboratory Results Laboratory Results WBC 13.80 K/ul (4.8-10.8) H 12/27/23 08:21 RBC 2.80 M/uL (4.20-5.40) L 12/27/23 08:21 Hgb 10.0 g/dl (12.0-16.0) L 12/27/23 08:21 Hct 31.3 % (37.0-47.0) L 12/27/23 08:21 MCV 111.8 fL (80.0-100.0) H 12/27/23 08:21 MCH 35.7 pg (25.0-34.0) H 12/27/23 08:21 MCHC 31.9 g/dL (32.0-36.0) L 12/27/23 08:21 RDW Std Deviation 73.8 fL (36.4-46.3) H 12/27/23 08:21 RDW Coeff of Amparo 19.2 % (11.5-14.5) H 12/27/23 08:21 Plt Count 147 K/uL (130-400) 12/27/23 08:21 MPV 11.2 fL (9.4-12.4) 12/27/23 08:21 Immature Gran % (Auto) 0.7 % 12/23/23 07:40 Neut % (Auto) 90.0 % 12/23/23 07:40 Lymph % (Auto) 4.8 % 12/23/23 07:40 Faulk % (Auto) 4.3 % 12/23/23 07:40 Eos % (Auto) 0.1 % 12/23/23 07:40 Baso % (Auto) 0.1 % 12/23/23 07:40 Neut # (Auto) 13.62 K/uL (1.40-6.50) H 12/23/23 07:40 Lymph # (Auto) 0.72 K/uL (1.20-3.40) L 12/23/23 07:40 Faulk # (Auto) 0.65 K/uL (0.11-0.59) H 12/23/23 07:40 Eos # (Auto) 0.01 K/uL (0.00-0.50) 12/23/23 07:40 Baso # (Auto) 0.01 K/uL (0.00-0.20) 12/23/23 07:40 Immature Gran # (Auto) 0.10 K/uL (0.01-0.20) 12/23/23 07:40 Absolute Nucleated RBC 0.08 K/uL (0.00-0.12) 12/27/23 08:21 Nucleated RBC % (auto) 0.6 % 12/27/23 08:21 Platelet Estimate Cancelled 12/25/23 08:00 Macrocytosis Present 12/09/23 06:53 ESR 93 mm/hr (0-30) H 12/11/23 06:13 VBG pH 7.35 (7.36-7.41) L 12/23/23 19:15 VBG pCO2 44 mmHg (38-50) 12/23/23 19:15 VBG pO2 47 mmHg 12/23/23 19:15 VBG HCO3 24 mmol/L 12/23/23 19:15 VBG O2 Saturation 80.0 % 12/23/23 19:15 VBG Base Excess -1.5 mEq/L 12/23/23 19:15 Sodium 131 mmol/L (136-145) L 12/27/23 10:26 Potassium 4.2 mmol/L (3.5-5.1) 12/27/23 10:26 Chloride 96 mmol/L (98-107) L 12/27/23 10:26 Carbon Dioxide 23 mmol/L (21-32) 12/27/23 10:26 Anion Gap 12 (3-11) H 12/27/23 10:26 BUN 61 mg/dl (6-23) H D 12/27/23 10:26 Creatinine 3.08 mg/dl (0.6-1.2) H D 12/27/23 10:26 Est Cr Clr Drug Dosing 15.0 ml/min 12/27/23 10:26 Est GFR ( Amer) 16.4 ml/min 12/27/23 10:26 Est GFR (Non-Af Amer) 14.1 ml/min 12/27/23 10:26 BUN/Creatinine Ratio 19.8 (10-20) 12/27/23 10:26 Glucose 173 mg/dl (70-99(Fasting)) H 12/27/23 10:26 POC Glucose 152 mg/dl (70-99) H 12/27/23 16:54 Osmolality 296 mOsm/kg (280-300) 12/21/23 13:12 Calcium 9.0 mg/dl (8.6-10.3) 12/27/23 10:26 Phosphorus 5.0 mg/dl (2.5-4.9) H 12/23/23 07:40 Magnesium 2.3 mg/dl (1.7-2.4) 12/15/23 08:07 Iron 53 mcg/dl (35-150) 12/27/23 10:26 TIBC 193 mcg/dl (250-450) L 12/27/23 10:26 Unsaturated IBC 140 mcg/dl (155-355) L 12/27/23 10:26 Transferrin % Sat 27 % (15-50) 12/27/23 10:26 Ferritin 1704.0 ng/ml (8-388) H 12/27/23 10:26 Total Bilirubin 0.9 mg/dl (0.2-1.0) 12/19/23 08:16 Direct Bilirubin 0.4 mg/dl (0-0.2) H 12/19/23 08:16 AST 33 U/L (13-39) 12/19/23 08:16 ALT 43 U/L (7-52) 12/19/23 08:16 Alkaline Phosphatase 239 U/L (34-104) H 12/19/23 08:16 Ammonia 23.0 umol/L (18-72) 12/20/23 09:27 C-Reactive Protein 3.29 mg/dl (0-0.5) H 12/20/23 05:20 Total Protein 6.0 gm/dl (6.0-8.3) 12/19/23 08:16 Albumin 3.1 gm/dl (3.4-5.0) L 12/23/23 07:40 Globulin 3.2 gm/dl (2.5-4.0) 12/15/23 08:07 Albumin/Globulin Ratio 1.0 (0.9-2) 12/15/23 08:07 Procalcitonin 0.48 ng/ml (0-0.5) 12/20/23 09:27 TSH 0.354 uIu/ml (0.300-4.500) 12/23/23 19:15 Nasal Screen MRSA (PCR) Negative (Negative) 12/09/23 21:45 Hep Bs Antigen NON-REACTIVE (NON-REACTIVE) 12/26/23 08:49 Hep Bs Ag Confirmation TNP 12/26/23 08:49 Hep Bs Antibody, Quant <5 mIU/mL (> OR = 10) L 12/26/23 08:[address] 12/08/23 16:42 CT OF THE LUMBAR SPINE CLINICAL HISTORY: Back pain. Breast cancer. COMPARISON STUDY: Lumbar spine CT September 13, 2023. Lumbar spine MRI October 18, 2023. TECHNIQUE: Helical axial images of the lumbar spine were obtained. Sagittal and coronal reconstructions were viewed. Automated exposure control was utilized for the study. A dose lowering technique was utilized adhering to the principles of ALARA. FINDINGS: Please note that the abdomen and pelvis CT will be reported separately. For purposes of numbering on this exam, the L5-S1 disc space is assigned to axial image 151 of 198. Alignment of the lumbar spine is anatomic. L1 and L2 kyphoplasty for pathologic fractures is again noted. The postprocedural appearance is similar to abdominal CT of December 02, 2023. Progressive lytic appearance of the T12 vertebral body is noted. This suggests additional metastases. No associated pathologic fracture would be difficult to exclude. No vertebral body height loss at this level is noted. An additional L4 vertebral body metastasis is unchanged. A lytic focus within L5 is unchanged. There is moderate multilevel facet arthrosis and moderate to severe multilevel disc space narrowing within the lumbar spine. Central canal and neural foramen are suboptimally assessed given CT technique. IMPRESSION: 1. Multiple skeletal lesions within the lower thoracic and lumbar spine consistent with metastases. Pathologic fracture at the T12 level would be difficult to exclude. No vertebral body height loss. 2. Status post L1 and L2 kyphoplasty. Stable postprocedural appearance. 3. Moderate to severe multilevel degenerative changes within the lumbar spine. Suboptimal evaluation of central canal and neural foramen given CT technique. ACT 112: Negative or not required by law. Electronically signed by: Bob Alejandre M.D. 12/08/2023 6:35 PM Abdomen/Pelvis CT 12/08/23 17:00 CT OF THE ABDOMEN AND PELVIS WITHOUT CONTRAST CLINICAL HISTORY: Back pain. Breast cancer. COMPARISON STUDY: CT of the abdomen and pelvis December 02, 2023. TECHNIQUE: Axial images of the abdomen and pelvis were obtained without IV contrast. Images were reviewed in the axial, sagittal, and coronal planes. Automated exposure control was utilized for the study. A dose lowering technique was utilized adhering to the principles of ALARA. FINDINGS: Moderate right and small left pleural effusions are unchanged since CT of December 02, 2023. Heart is moderately enlarged. A left breast density may reflect the primary lesion. Mild pulmonary edema within the lower lungs is again noted. Evaluation of the abdomen and pelvis is suboptimal on this unenhanced exam. There is oral contrast throughout portions of the colon and rectum from prior CT. Heterogeneity with nodularity of the liver surface is again noted. This is similar to prior CT. Spleen, adrenal glands and pancreas are unremarkable. There is extensive vascular calcification. Bilateral renal calculi are present. There is no hydronephrosis. Several left ureterovesical junction calculi measure up to 7 mm. These are similar to prior exam. There is no upstream dilatation. Mildly enlarged retroperitoneal lymph nodes are unchanged. No evidence for a bowel obstruction. No new sites of lymphadenopathy are identified. Previous kyphoplasty at the L1 and L2 levels is noted with underlying pathologic fractures, similar appearance to prior CT. Additional lytic lesions within the lumbar spine are noted. In addition, there is a lytic lesion within T12 with cortical disruption. Findings are better depicted on the lumbar spine CT which will be reported separately. IMPRESSION: 1. No bowel obstruction. 2. No significant change since prior CT. Cardiomegaly with moderate right and small left pleural effusions and mild edema. 3. Several left ureterovesical junction calculi, similar to prior exam. No hydronephrosis. Bilateral nephrolithiasis. 4. Multiple osseous metastases with pathologic L1 and L2 fractures status post kyphoplasty. Additional lesions within the lower thoracic and lumbar spine. 5. Heterogeneity of the liver with nodularity liver surface, similar to prior exam. This remains nonspecific and could reflect cirrhosis or metastatic disease. ACT 112: Negative or not required by law. Electronically signed by: Bob Alejandre M.D. 12/08/2023 6:23 PM Soft Tissue Ultrasound 12/11/23 00:00 US soft tissue ext ltd CLINICAL HISTORY: eval right hip induration for fluid collection COMPARISON STUDY: Abdomen and pelvis CT 12/08/2023. FINDINGS: Real-time sonographic imaging of the right hip was performed with personal banking representative images submitted. Mild edema and increased echogenicity within the subcutaneous fat. There are few scattered varicosities noted. No loculated fluid collections, masses, lymphadenopathy identified. IMPRESSION: No loculated fluid collections within the right hip. ACT 112: Negative or not required by law. Electronically signed by: Duran Adhikari M.D. 12/11/2023 8:12 AM Chest X-Ray 12/23/23 18:47 XR chest 1V portable HISTORY: b/l rales, hypoxia COMPARISON: Chest 11/28/2023. FINDINGS: No pneumothorax. The heart remains enlarged. There are low lung volumes. A right jugular catheter terminates in the SVC. Postoperative changes within the right humerus again noted. There is interval progression of the moderate pulmonary edema and small bilateral pleural effusions. IMPRESSION: Interval progression of the moderate pulmonary edema and small bilateral pleural effusions. ACT 112: Negative or not required by law. Electronically signed by: Duran Adhikari M.D. 12/23/2023 7:18 PM Diagnostic Findings Laboratory Results WBC 13.80 K/ul (4.8-10.8) H 12/27/23 08:21 RBC 2.80 M/uL (4.20-5.40) L 12/27/23 08:21 Hgb 10.0 g/dl (12.0-16.0) L 12/27/23 08:21 Hct 31.3 % (37.0-47.0) L 12/27/23 08:21 MCV 111.8 fL (80.0-100.0) H 12/27/23 08:21 MCH 35.7 pg (25.0-34.0) H 12/27/23 08:21 MCHC 31.9 g/dL (32.0-36.0) L 12/27/23 08:21 RDW Std Deviation 73.8 fL (36.4-46.3) H 12/27/23 08:21 RDW Coeff of Amparo 19.2 % (11.5-14.5) H 12/27/23 08:21 Plt Count 147 K/uL (130-400) 12/27/23 08:21 MPV 11.2 fL (9.4-12.4) 12/27/23 08:21 Immature Gran % (Auto) 0.7 % 12/23/23 07:40 Neut % (Auto) 90.0 % 12/23/23 07:40 Lymph % (Auto) 4.8 % 12/23/23 07:40 Faulk % (Auto) 4.3 % 12/23/23 07:40 Eos % (Auto) 0.1 % 12/23/23 07:40 Baso % (Auto) 0.1 % 12/23/23 07:40 Neut # (Auto) 13.62 K/uL (1.40-6.50) H 12/23/23 07:40 Lymph # (Auto) 0.72 K/uL (1.20-3.40) L 12/23/23 07:40 Faulk # (Auto) 0.65 K/uL (0.11-0.59) H 12/23/23 07:40 Eos # (Auto) 0.01 K/uL (0.00-0.50) 12/23/23 07:40 Baso # (Auto) 0.01 K/uL (0.00-0.20) 12/23/23 07:40 Immature Gran # (Auto) 0.10 K/uL (0.01-0.20) 12/23/23 07:40 Absolute Nucleated RBC 0.08 K/uL (0.00-0.12) 12/27/23 08:21 Nucleated RBC % (auto) 0.6 % 12/27/23 08:21 Platelet Estimate Cancelled 12/25/23 08:00 Macrocytosis Present 12/09/23 06:53 ESR 93 mm/hr (0-30) H 12/11/23 06:13 VBG pH 7.35 (7.36-7.41) L 12/23/23 19:15 VBG pCO2 44 mmHg (38-50) 12/23/23 19:15 VBG pO2 47 mmHg 12/23/23 19:15 VBG HCO3 24 mmol/L 12/23/23 19:15 VBG O2 Saturation 80.0 % 12/23/23 19:15 VBG Base Excess -1.5 mEq/L 12/23/23 19:15 Sodium 131 mmol/L (136-145) L 12/27/23 10:26 Potassium 4.2 mmol/L (3.5-5.1) 12/27/23 10:26 Chloride 96 mmol/L (98-107) L 12/27/23 10:26 Carbon Dioxide 23 mmol/L (21-32) 12/27/23 10:26 Anion Gap 12 (3-11) H 12/27/23 10:26 BUN 61 mg/dl (6-23) H D 12/27/23 10:26 Creatinine 3.08 mg/dl (0.6-1.2) H D 12/27/23 10:26 Est Cr Clr Drug Dosing 15.0 ml/min 12/27/23 10:26 Est GFR ( Amer) 16.4 ml/min 12/27/23 10:26 Est GFR (Non-Af Amer) 14.1 ml/min 12/27/23 10:26 BUN/Creatinine Ratio 19.8 (10-20) 12/27/23 10:26 Glucose 173 mg/dl (70-99(Fasting)) H 12/27/23 10:26 POC Glucose 152 mg/dl (70-99) H 12/27/23 16:54 Osmolality 296 mOsm/kg (280-300) 12/21/23 13:12 Calcium 9.0 mg/dl (8.6-10.3) 12/27/23 10:26 Phosphorus 5.0 mg/dl (2.5-4.9) H 12/23/23 07:40 Magnesium 2.3 mg/dl (1.7-2.4) 12/15/23 08:07 Iron 53 mcg/dl (35-150) 12/27/23 10:26 TIBC 193 mcg/dl (250-450) L 12/27/23 10:26 Unsaturated IBC 140 mcg/dl (155-355) L 12/27/23 10:26 Transferrin % Sat 27 % (15-50) 12/27/23 10:26 Ferritin 1704.0 ng/ml (8-388) H 12/27/23 10:26 Total Bilirubin 0.9 mg/dl (0.2-1.0) 12/19/23 08:16 Direct Bilirubin 0.4 mg/dl (0-0.2) H 12/19/23 08:16 AST 33 U/L (13-39) 12/19/23 08:16 ALT 43 U/L (7-52) 12/19/23 08:16 Alkaline Phosphatase 239 U/L (34-104) H 12/19/23 08:16 Ammonia 23.0 umol/L (18-72) 12/20/23 09:27 C-Reactive Protein 3.29 mg/dl (0-0.5) H 12/20/23 05:20 Total Protein 6.0 gm/dl (6.0-8.3) 12/19/23 08:16 Albumin 3.1 gm/dl (3.4-5.0) L 12/23/23 07:40 Globulin 3.2 gm/dl (2.5-4.0) 12/15/23 08:07 Albumin/Globulin Ratio 1.0 (0.9-2) 12/15/23 08:07 Procalcitonin 0.48 ng/ml (0-0.5) 12/20/23 09:27 TSH 0.354 uIu/ml (0.300-4.500) 12/23/23 19:15 Nasal Screen MRSA (PCR) Negative (Negative) 12/09/23 21:45 Hep Bs Antigen NON-REACTIVE (NON-REACTIVE) 12/26/23 08:49 Hep Bs Ag Confirmation TNP 12/26/23 08:49 Hep Bs Antibody, Quant <5 mIU/mL (> OR = 10) L 12/26/23 08:[address] 12/08/23 16:42 CT OF THE LUMBAR SPINE CLINICAL HISTORY: Back pain. Breast cancer. COMPARISON STUDY: Lumbar spine CT September 13, 2023. Lumbar spine MRI October 18, 2023. TECHNIQUE: Helical axial images of the lumbar spine were obtained. Sagittal and coronal reconstructions were viewed. Automated exposure control was utilized for the study. A dose lowering technique was utilized adhering to the principles of ALARA. FINDINGS: Please note that the abdomen and pelvis CT will be reported separately. For purposes of numbering on this exam, the L5-S1 disc space is assigned to axial image 151 of 198. Alignment of the lumbar spine is anatomic. L1 and L2 kyphoplasty for pathologic fractures is again noted. The postprocedural appearance is similar to abdominal CT of December 02, 2023. Progressive lytic appearance of the T12 vertebral body is noted. This suggests additional metastases. No associated pathologic fracture would be difficult to exclude. No vertebral body height loss at this level is noted. An additional L4 vertebral body metastasis is unchanged. A lytic focus within L5 is unchanged. There is moderate multilevel facet arthrosis and moderate to severe multilevel disc space narrowing within the lumbar spine. Central canal and neural foramen are suboptimally assessed given CT technique. IMPRESSION: 1. Multiple skeletal lesions within the lower thoracic and lumbar spine consi stent with metastases. Pathologic fracture at the T12 level would be difficult to exclude. No vertebral body height loss. 2. Status post L1 and L2 kyphoplasty. Stable postprocedural appearance. 3. Moderate to severe multilevel degenerative changes within the lumbar spine. Suboptimal evaluation of central canal and neural foramen given CT technique. ACT 112: Negative or not required by law. Electronically signed by: Bob Alejandre M.D. 12/08/2023 6:35 PM Abdomen/Pelvis CT 12/08/23 17:00 CT OF THE ABDOMEN AND PELVIS WITHOUT CONTRAST CLINICAL HISTORY: Back pain. Breast cancer. COMPARISON STUDY: CT of the abdomen and pelvis December 02, 2023. TECHNIQUE: Axial images of the abdomen and pelvis were obtained without IV contrast. Images were reviewed in the axial, sagittal, and coronal planes. Automated exposure control was utilized for the study. A dose lowering technique was utilized adhering to the principles of ALARA. FINDINGS: Moderate right and small left pleural effusions are unchanged since CT of December 02, 2023. Heart is moderately enlarged. A left breast density may reflect the primary lesion. Mild pulmonary edema within the lower lungs is again noted. Evaluation of the abdomen and pelvis is suboptimal on this unenhanced exam. There is oral contrast throughout portions of the colon and rectum from prior CT. Heterogeneity with nodularity of the liver surface is again noted. This is similar to prior CT. Spleen, adrenal glands and pancreas are unremarkable. There is extensive vascular calcification. Bilateral renal calculi are present. There is no hydronephrosis. Several left ureterovesical junction calculi measure up to 7 mm. These are similar to prior exam. There is no upstream dilatation. Mildly enlarged retroperitoneal lymph nodes are unchanged. No evidence for a bowel obstruction. No new sites of lymphadenopathy are identified. Previous kyphoplasty at the L1 and L2 levels is noted with underlying pathologic fractures, similar appearance to prior CT. Additional lytic lesions within the lumbar spine are noted. In addition, there is a lytic lesion within T12 with cortical disruption. Findings are better depicted on the lumbar spine CT which will be reported separately. IMPRESSION: 1. No bowel obstruction. 2. No significant change since prior CT. Cardiomegaly with moderate right and small left pleural effusions and mild edema. 3. Several left ureterovesical junction calculi, similar to prior exam. No hydronephrosis. Bilateral nephrolithiasis. 4. Multiple osseous metastases with pathologic L1 and L2 fractures status post kyphoplasty. Additional lesions within the lower thoracic and lumbar spine. 5. Heterogeneity of the liver with nodularity liver surface, similar to prior exam. This remains nonspecific and could reflect cirrhosis or metastatic disease. ACT 112: Negative or not required by law. Electronically signed by: Bob Alejandre M.D. 12/08/2023 6:23 PM Soft Tissue Ultrasound 12/11/23 00:00 US soft tissue ext ltd CLINICAL HISTORY: eval right hip induration for fluid collection COMPARISON STUDY: Abdomen and pelvis CT 12/08/2023. FINDINGS: Real-time sonographic imaging of the right hip was performed with personal banking representative images submitted. Mild edema and increased echogenicity within the subcutaneous fat. There are few scattered varicosities noted. No loculated fluid collections, masses, lymphadenopathy identified. IMPRESSION: No loculated fluid collections within the right hip. ACT 112: Negative or not required by law. Electronically signed by: Duran Adhikari M.D. 12/11/2023 8:12 AM Chest X-Ray 12/23/23 18:47 XR chest 1V portable HISTORY: b/l rales, hypoxia COMPARISON: Chest 11/28/2023. FINDINGS: No pneumothorax. The heart remains enlarged. There are low lung volumes. A right jugular catheter terminates in the SVC. Postoperative changes within the right humerus again noted. There is interval progression of the moderate pulmonary edema and small bilateral pleural effusions. IMPRESSION: Interval progression of the moderate pulmonary edema and small bilateral pleural effusions. ACT 112: Negative or not required by law. Electronically signed by: Duran Adhikari M.D. 12/23/2023 7:18 PM PG Care Time/CCT Total # of Minutes Spent Total Time Spent with Patient: Total time spent is greater than 50% in coordination of care (as documented) at patient's floor/unit and/or counseling patient: I spent 60 minutes overall addressing this case: 10 min in medical data review/discussion with referring p rovider(s) and/or preparation for the visit 15 min in direct interaction with the patient/exam 00 min in Advance Care Planning/Goals of Care discussions as detailed above in note (must be >16min) 15 min in subsequent review and synthesis of assessment and plan 20 min communicating with other providers regarding the patient's case: primary team nursing, care mgt, pharmacy [place] [address] SUB INP/OBS CARE 3/50MIN Patient Type Established History Comprehensive Exam Comprehensive Medical Decision Making High Complexity Diagnoses Bilateral buttock pain M79.18 Weakness generalized R53.1 Palliative care by specialist Z51.5
[2023-12-28] MEDS ORDERED: SODIUM CHLORIDE 0.9% 1,000 ML IV PRN (07:00)
--- NOTE | 2023-12-28 08:51 | Nephrology Progress Note ---
Date of Service December 28, 2023 Assessment & Plan (1) ESRD (end stage renal disease): Plan: * Will provide HD today to maintain electrolyte balance. Patient requests short treatments of only 2.5 hours or less * Outpatient HD Rx: M&F [facility] 2.5hr, 2K 2Ca, F-180NR. EDW 90 kg. Access R IJ TCC (2) Anemia: Plan: * Outpatient Rx: Venofer 100 mg IVP with HD and Micera 30 IVP q 2 weeks with HD * Hgb 10. Will provide TUNDE w/ HD today (3) Sacral ulcer: Plan: * Continue measures to reduce pressure at sacral decubitus * Continue topical lidocaine q6 hours * Wound care is providing Aquacel to sacral wound (4) Breast cancer: (5) Metastatic cancer to spine: Admission and Anticipated Discharge Date Admission Date: December 08, 2023 Subjective Miss Beyer was evaluated in her hospital room this morning. She remains uncomfortable due to her sacral decubitus ulcer but notes that the pain is more tolerable with low dose Vicodin. She is agreeable to HD today but states that "I may not be able to complete a full 2 1/2 hour treatment!" Review of Systems Constitutional: no fever Eyes: no problem reported Ear, Nose, Mouth, Throat: no problem reported Respiratory: no cough and no dyspnea Cardiovascular: no chest pain Gastrointestinal: no abdominal pain, no nausea, no vomiting and no diarrhea/loose stools Integumentary: no rash Physical Exam Constitutional: + in distress (pain related to decubitus ulcer) Eyes: PERRL, conjunctivae normal, anicteric sclerae ENMT: external ear and nose normal, oropharynx normal Neck: trachea midline, no thyromegaly Respiratory: normal respiratory effort, lungs clear to auscultation Cardiovascular: RRR, no murmur, no edema Gastrointestinal (Abdomen): normal bowel sounds, soft, nontender, no hepatosplenomegaly Skin: no rashes, warm and dry Neurologic: Speech / Cognition: normal speech and normal cognition Psychiatric: Affect: + depressed affect Results & Data Vital Signs (Past 12 Hours) Vital Signs Temp Pulse Pulse Pulse Resp BP Pulse Ox 12/28/23 07:55 36.5 C 82 16 116/72 98 12/28/23 07:30 90 12/28/23 03:19 36.4 C L 89 20 100/63 92 12/28/23 00:42 81 12/27/23 23:49 36.3 C L 82 20 99/57 L 92 12/27/23 21:57 O2 Del Method O2 Flow Rate 12/28/23 07:55 Room Air 12/28/23 07:30 12/28/23 03:19 Nasal Cannula 2 12/28/23 00:42 12/27/23 23:49 Nasal Cannula 2 12/27/23 21:57 Nasal Cannula 3 Laboratory Results Laboratory Results - last 24 hr 12/26/23 12/27/23 12/27/23 08:49 10:26 11:55 Sodium 131 L Potassium 4.2 Chloride 96 L Carbon Dioxide 23 Anion Gap 12 H BUN 61 H D Creatinine 3.08 H D Est Cr Clr Drug Dosing 15.0 Est GFR ( Amer) 16.4 Est GFR (Non-Af Amer) 14.1 BUN/Creatinine Ratio 19.8 Glucose 173 H POC Glucose 146 H Calcium 9.0 Iron 53 TIBC 193 L Unsaturated IBC 140 L Transferrin % Sat 27 Ferritin 1704.0 H Hep Bs Antigen NON-REACTIVE Hep Bs Ag Confirmation TNP Hep Bs Antibody, Quant <5 L 12/27/23 12/27/23 12/28/23 16:54 20:11 08:21 Sodium Potassium Chloride Carbon Dioxide Anion Gap BUN Creatinine Est Cr Clr Drug Dosing Est GFR ( Amer) Est GFR (Non-Af Amer) BUN/Creatinine Ratio Glucose POC Glucose 152 H 186 H 169 H Calcium Iron TIBC Unsaturated IBC Transferrin % Sat Ferritin Hep Bs Antigen Hep Bs Ag Confirmation Hep Bs Antibody, Quant PG Care Time/CCT Total # of Minutes Spent Total Time Spent with Patient: Total time spent is greater than 50% in coordination of care (as documented) at patient's floor/unit and/or counseling patient: Coding Level of Care Code 39593 SUB INP/OBS CARE 3/50MIN Diagnoses ESRD (end stage renal disease) N18.6 Anemia D64.9 Sacral ulcer L98.429 Breast cancer C50.912 Breast location: unspecified site of breast Estrogen receptor status: unspecified Laterality: left Patient sex: female Metastatic cancer to spine C79.51 (4) Breast cancer Breast location: unspecified site of breast Estrogen receptor status: unspecified Laterality: left Patient sex: female Qualified Code(s): C50.912 - Malignant neoplasm of unspecified site of left female breast
[2023-12-28] MEDS: HEPARIN SOD (PORCINE) 1000 UNIT/ML IV ONE (11:21)
--- NOTE | 2023-12-28 18:50 | Hospitalist Progress Note ---
Date of Service December 28, 2023 Assessment & Plan (1) Decubitus ulcer of buttock, unstageable: Plan: b/l buttock decubitus ulcers continue frequent turning and repositioning continue wound management as advised by the wound care team appreciate palliative care assistance with pain meds appreciate wound care team assistance pt's wound cx grew proteus and e.coli s/p 3 days of IV ertapenem 500mg daily changed to cipro 400mg daily IV; day #5 plan 7-10 days of total abx then stop -AM CBC pain in buttock continues to be one of her largest issues ordered lidocaine jelly prn to jeana-wound areas and this is helping thus far Dr Sewell suggested use of morphine gel which needs to be compounded - she contacted an outpatient pharmacy which will be able to compound I discussed with inpatient pharmacist - may be able to compound, will need to clear with supervisor framing mill and order ingredients, NFDR made by Dr. 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 Had been on fentanyl patch with improved pain. The fentanyl patch was weaned off last week, however, as it was causing excess sedation, confusion and potentially low BP. Treated with IV dexamethasone through 12/25 her usual prednisone 10mg/day. Radiating pain to the b/l groin sounds like radicular pain from the l-spine -- this symptom has improved. had trial of gabapentin, she refused it. See #1 re: morphine gel. See #1 re: IV/PO narcotics. (3) ESRD needing dialysis: Plan: dialyzes in [place] 2x's week - Tue/Tuesday nephrology advising to dialyze 3 days per week but I don't think she would tolerate such not even sure that when she gets home she will tolerate any HD moving forward given her current status discussed with wound nurse - she can be provided with a pressure relief cushion for sitting during outpatient dialysis/transport (4) Atrial fibrillation: Plan: mostly NSR this admission but converted to a.fib - rate-controlled - a few days ago she is rate-controlled even off of her usual metoprolol NOT on chronic anticoagulation (5) Type 2 diabetes mellitus: Plan: Cont lantus Continue Novolog No changes today (6) Transaminitis: Plan: Resolved (7) Breast cancer: Plan: dx 2020; now metastatic to lung, bone (T-spine,L-spine), possibly the liver, etc follows with [facility] [place], Dr Calvert on fulvestrant monthly - received this last week here at [facility] started recently on 10mg prednisone for hypercalcemia PPI BID for GI prophylaxis (8) Malignant neoplasm of breast metastatic to bone: Plan: as above (9) Failure to thrive: Plan: 2nd to stage 4 breast ca in the context of severe deconditioning, recurrent prolonged hospital stays, ESRD status on HD, severe pain in multiple locations, b/l buttock decubiti, wound infection of buttock, etc very poor appetite prognosis very very poor Plan hyponatremia - improved to 131 today's labs VTE prophylaxis: heparin SC stopped due to severe bruising of pannus cont Knee-high SCDs spoke with Adele, pt's spouse, in person at bedside 12/26, 12/27 met with Adele and Dr. Sewell today for 20 minutes, discussed goals of care, concerns over progressive decline over past weeks despite escalation of interventions Dr. Sewell met with Pauline later and she will be DNR Admission and Anticipated Discharge Date Admission Date: December 08, 2023 Subjective c/o severe buttock pain but seems sleepy, just had vicodin per RN Adele thinks vicodin was very effective overnight and she had no pain early this am Tolerated dialysis ok today Physical Exam 2 Physical Exam: PHYSICAL EXAMINATION Last 24h vital signs reviewed, see documentation in flowsheet General: looks sleepy but awake, ill appearing HEENT: Normocephalic, atraumatic, pupils round and equal, sclerae anicteric, no conjunctival injection, moist mucus membranes Lungs: Normal resp effort Clear to auscultation bilaterally anteriorly. No RRW Heart: Regular rate and rhythm, no murmurs. No JVD Abdomen: Soft, nontender, nondistended. Bowel sounds present. Extremities: Warm, dry, well-perfused. 2+ extremity edema. Neuro: Sleepy but not confused, speech clear, oriented to situation, face symmetric, moves 4 extremities Psych: calm, withdrawn or sleepy Results & Data Results & Data Vital Signs (Past 12 Hours) Vital Signs Temp Pulse Pulse Pulse Pulse Resp BP 12/28/23 14:37 36.3 C L 70 15 12/28/23 12:20 36.4 C L 82 12/28/23 12:00 84 104/40 L 12/28/23 11:30 88 125/52 L 12/28/23 11:00 82 142/47 H 12/28/23 10:30 85 137/58 L 12/28/23 10:00 93 H 145/51 H 12/28/23 09:38 36.3 C L 90 12/28/23 07:55 36.5 C 82 16 12/28/23 07:30 90 BP BP Pulse Ox O2 Del Method O2 Flow Rate 12/28/23 14:37 102/68 93 Nasal Cannula 2 12/28/23 12:20 116/55 L 12/28/23 12:00 12/28/23 11:30 12/28/23 11:00 12/28/23 10:30 12/28/23 10:00 12/28/23 09:38 12/28/23 07:55 116/72 98 Nasal Cannula 2 12/28/23 07:30 Laboratory Results 12/27/23 08:21 12/27/23 10:26 PG Care Time/CCT Total # of Minutes Spent Total Time Spent with Patient: I personally spent: 50 minutes today on clinical care activities including: reviewing chart notes and vital signs discussion with behavioral consultant(s) discussion with personal care worker, wound nurse, pharmacist examining and counseling the patient counseling the patient's family writing orders documentation Coding Level of Care Code 77267 SUB INP/OBS CARE 3/50MIN Diagnoses Decubitus ulcer of buttock, unstageable L89.300 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
--- NOTE | 2023-12-28 20:43 | Palliative Care Progress Note ---
Date of Service December 28, 2023 Assessment & Plan (1) Bilateral buttock pain: Plan: Low dose dilaudid seems to be slightly better than oral vicodin as far as making her less wifty. I have contacted [facility] in [place] for morphine topical compounding, which they offer and will connect directly with spouse. (2) Weakness generalized: (3) Palliative care by specialist: (4) Advanced care planning/counseling discussion: Plan: A face to face ACP was held first with pt spouse along with Dr Chavira for 30 min then another face to face was held with pt at bedside for 30 min followed by a 15min combined visit with pt and spouse. We discussed my worries her wound may not heal and that despite escalation in medical care, she has not substantially improved. I worry that when we see this, it may be a sign things are not going to improve they way we hoped. We discussed code status and CPR survival: Only about 10% of patients who have [id number] sudden cardiac arrest survive to hospital discharge, with many survivors having neurologic impairment. This rate is even lower among patients with serious coexisting conditions, ie chance of survival to hospital discharge for in-hospital CPR in older people is low to moderate (15%) and decreases with age, comorbidities, performance status and frailty: for pts > 70 yo, more than half of the patients who initially survived resuscitation in the hospital before hospital discharge. The pooled survival to discharge after in-hospital CPR was 18% for patients between 70 and 79 years old, 15% for patients between 80 and 89 years old and 11% for patients of 90 years and older. (Froy MORALESY, Kobe LJ, Milagro F, et al. Trends in short- and long-term survival among [id number] cardiac arrest patients alive at hospital arrival. Circulation 2014;130:1474-3866. AND Iscale C, Freeman T, Rastaoh R, et al. Performance of clinical risk scores to predict mortality and neurological outcome in cardiac arrest patients. Resuscitation 2019;136:21-29.) Pt and spouse both in agreement for DNR/DNI. Pt states she does not want to be placed on machines and does not want to in the hospital. She wants to be home and with her family. SHe does not want to prolong dying. in agreement and adds that pt has always been clear she does not want to be placed on machines. She does not want PRODUCE [employer] She wants to keep trying to fix what's fixable and treat what's treatable, but if she has a natural , allow it and assure comfort through the dying process. Total ACP time is 75min, all of this was face to face Plan * ACP discussion above * pain mgt as noted above Thank you for allowing us to participate in the ongoing care of this patient. Please don't hesitate to call or page with any additional concerns. Dr. Katiana Sewell DNP Director, Palliative Care Admission and Anticipated Discharge Date Admission Date: December 08, 2023 Subjective Apuline is having more pain ana with repositioning and exertion. She notes HD makes her leg hurt. She gets very tired and sleepy with all pain meds. Did not feel Vicodin worked any better than IV DIlaudid. Her wound is not better and maybe looks a little worse. She does not feel it has more pain than before but notes that since her mattress was changed, she has felt it less intensely. Her appetite is "ok" and she is trying to eat the extra protein snacks. The Gelatein is tolerable but she notes with a dry humor that "it's still not anything I'd be writing home about." Denies n/v NO chest pain Review of Systems Review of Systems: All systems reviewed & are unremarkable except as noted in Subjective Physical Exam Constitutional: + ill appearing, + physical limitations, + frail appearing and + malnourished Eyes: PERRL and EOM intact bilaterally ENMT: Mouth: + muffled voice, + dry oral mucous membranes and + poor dentition Neck: trachea midline, no thyromegaly + short neck Thyroid: normal thyroid Respiratory: normal respiratory effort, able to speak in complete sentences and symmetric chest movement Auscultation: + diminished lung sounds and + crackles Cardiovascular: Rate/Rhythm: regular rate and regular rhythm Heart Sounds: normal S1 and normal S2 Palpation: normal PMI Extremities: + varicosities venous insuff changes BLE, trace edema Gastrointestinal (Abdomen): Inspection/Auscultation: + abdomen distended, normal bowel sounds and + significant pannus Percussion/Palpation: abdomen soft and normal to percussion multiple open areas along pannus skin fold, see wound assessment photo. peripheral erythema noted. Musculoskeletal: signif deconditioning and generalized weakness Skin: + turgor decreased, + skin tightening, + dry skin and + ecchymosis Neurologic: PERRL, EOMI, accommodation nl, no face palsy, no dysarthria AAOx3 Psychiatric: Orientation: alert and oriented x 3 Apperance: appropriately dressed and appropriately groomed Eye Contact: + fair eye contact Speech: normal rate/rhythm/volume of speech Affect: + depressed affect Mood: + depressed mood Thought Process: linear/logical thought process Thought Content: + loneliness Suicidal Thoughts: denies suicidal thoughts, denies suicidal plan and denies suicidal intent Cognition: recent memory grossly intact, remote memory grossly intact, attention grossly intact and language grossly intact Estimated Intelligence: + above average estimated intelligence Insight: good insight Judgment: excellent judgement Results & Data Vital Signs (Past 12 Hours) Vital Signs Temp Pulse Pulse Pulse Pulse Resp BP 12/28/23 19:22 36.6 C 74 17 12/28/23 14:37 36.3 C L 70 15 12/28/23 12:20 36.4 C L 82 12/28/23 12:00 84 104/40 L 12/28/23 11:30 88 125/52 L 12/28/23 11:00 82 142/47 H 12/28/23 10:30 85 137/58 L 12/28/23 10:00 93 H 145/51 H 12/28/23 09:38 36.3 C L 90 BP BP Pulse Ox O2 Del Method O2 Flow Rate 12/28/23 19:22 102/69 100 Nasal Cannula 2 12/28/23 14:37 102/68 93 Nasal Cannula 2 12/28/23 12:20 116/55 L 12/28/23 12:00 12/28/23 11:30 12/28/23 11:00 12/28/23 10:30 12/28/23 10:00 12/28/23 09:38 PG Care Time/CCT Total # of Minutes Spent Total Time Spent with Patient: Total time spent is greater than 50% in coordination of care (as documented) at patient's floor/unit and/or counseling patient: I spent 130 minutes overall addressing this very complex case: 10 min in medical data review/discussion with referring provider(s) and/or preparation for the visit 15 min in direct interaction with the patient/exam 75 min in Advance Care Planning/Goals of Care discussions as detailed above in note (must be >16min) 10 min in subsequent review and synthesis of assessment and plan 20 min communicating with other providers regarding the patient's case: primary team, care mgt, nursing Advanced Care Planning 57929 Advanced Care Planning 30 Min 87788 Advanced Care Planning Additional 30 Min [place] [address] SUB INP/OBS CARE 3/50MIN (25 - SIGNIFICANT, SEPARATELY IDENTIFIABLE ) Patient Type Established Medical Decision Making High Complexity Diagnoses Bilateral buttock pain M79.18 Weakness generalized R53.1 Palliative care by specialist Z51.5 Advanced care planning/counseling discussion Z71.89 Additional Codes Advanced Care Planning - 56824 Advanced Care Planning 30 Min: 07478 Advanced Care Planning 30 Min ([id number]) Advanced Care Planning - 25887 Advanced Care Planning Additional 30 Min: 21669 Advanced Care Planning Additional 30 Min ([id number])
--- NOTE | 2023-12-29 08:46 | Nephrology Progress Note ---
Date of Service December 29, 2023 Assessment & Plan (1) ESRD (end stage renal disease): Plan: * Awaiting am labs * Clinically euvolemic. Will plan next HD for am and attempt to maintain MWF schedule * Outpatient HD Rx: M&F [facility] 2.5hr, 2K 2Ca, F-180NR. EDW 90 kg. Access R IJ TCC (2) Anemia: Plan: * Outpatient Rx: Venofer 100 mg IVP with HD and Micera 30 IVP q 2 weeks with HD * Awaiting H&H (3) Sacral ulcer: Plan: * Continue measures to reduce pressure at sacral decubitus * Continue topical lidocaine q6 hours * Wound care is providing Aquacel to sacral wound * Patient and spouse have met w/ Palliative Care. She wishes to continue HD and conservative medical care. She does not want to escalate care and is now DNR/DNI (4) Breast cancer: (5) Metastatic cancer to spine: Admission and Anticipated Discharge Date Admission Date: December 08, 2023 Subjective Miss Beyer was evaluated in her hospital room this morning. She appears more comfortable while taking low dose Vicodin. Miss Beyer reports that she tolerated her HD yesterday without complication Review of Systems Constitutional: no fever Eyes: no problem reported Ear, Nose, Mouth, Throat: no problem reported Respiratory: no cough and no dyspnea Cardiovascular: no chest pain Gastrointestinal: no abdominal pain, no nausea, no vomiting and no diarrhea/loose stools Integumentary: no rash Physical Exam Constitutional: + in distress (pain related to decubitus ulcer) Eyes: PERRL, conjunctivae normal, anicteric sclerae ENMT: external ear and nose normal, oropharynx normal Neck: trachea midline, no thyromegaly Respiratory: normal respiratory effort, lungs clear to auscultation Cardiovascular: RRR, no murmur, no edema Gastrointestinal (Abdomen): normal bowel sounds, soft, nontender, no hepatosplenomegaly Skin: no rashes, warm and dry Neurologic: Speech / Cognition: normal speech and normal cognition Psychiatric: Affect: + depressed affect Results & Data Vital Signs (Past 12 Hours) Vital Signs Temp Pulse Pulse Pulse Resp BP Pulse Ox 12/29/23 08:25 91 H 12/29/23 07:22 36.4 C L 80 14 100/64 98 12/29/23 03:35 36.5 C 80 18 103/52 L 98 12/28/23 23:30 36.4 C L 70 16 117/58 L 93 12/28/23 21:55 O2 Del Method O2 Flow Rate 12/29/23 08:25 12/29/23 07:22 Nasal Cannula 2 12/29/23 03:35 Nasal Cannula 2 12/28/23 23:30 Nasal Cannula 2 12/28/23 21:55 Nasal Cannula 2 Laboratory Results Laboratory Results - last 24 hr 12/28/23 12/28/23 12/28/23 12:35 16:54 20:44 WBC RBC Hgb Hct MCV MCH MCHC Plt Count Sodium Potassium Chloride Carbon Dioxide Anion Gap BUN Creatinine Est Cr Clr Drug Dosing Est GFR ( Amer) Est GFR (Non-Af Amer) BUN/Creatinine Ratio Glucose POC Glucose 189 H 188 H 205 H Calcium 12/29/23 12/29/23 08:20 08:59 WBC Pending RBC Pending Hgb Pending Hct Pending MCV Pending MCH Pending MCHC Pending Plt Count Pending Sodium Pending Potassium Pending Chloride Pending Carbon Dioxide Pending Anion Gap Pending BUN Pending Creatinine Pending Est Cr Clr Drug Dosing Pending Est GFR ( Amer) Pending Est GFR (Non-Af Amer) Pending BUN/Creatinine Ratio Pending Glucose Pending POC Glucose 144 H Calcium Pending PG Care Time/CCT Total # of Minutes Spent Total Time Spent with Patient: Total time spent is greater than 50% in coordination of care (as documented) at patient's floor/unit and/or counseling patient: Coding Level of Care Code 49133 SUB INP/OBS CARE 3/50MIN Diagnoses ESRD (end stage renal disease) N18.6 Anemia D64.9 Sacral ulcer L98.429 Breast cancer C50.912 Breast location: unspecified site of breast Estrogen receptor status: unspecified Laterality: left Patient sex: female Metastatic cancer to spine C79.51 (4) Breast cancer Breast location: unspecified site of breast Estrogen receptor status: unspecified Laterality: left Patient sex: female Qualified Code(s): C50.912 - Malignant neoplasm of unspecified site of left female breast
[2023-12-29 09:46] LABS: Hemoglobin 8.9 g/dl (12.0-16.0); Mean Corpuscular Hemoglobin 34.8 pg (25.0-34.0); Mean Corpuscular Hgb Conc 30.7 g/dL (32.0-36.0); Mean Corpuscular Volume 113.3 fL (80.0-100.0); Mean Platelet Volume 10.7 fL (9.4-12.4); Nucleated RBC # (auto) 0.07 K/uL (0.00-0.12); Nucleated RBC % (auto) 0.5 %; Platelet Count 149 K/uL (130-400); RDW Coefficient of Variation 18.9 % (11.5-14.5); RDW Standard Deviation 75.9 fL (36.4-46.3); Red Blood Count 2.56 M/uL (4.20-5.40); White Blood Count 14.31 K/ul (4.8-10.8)
[2023-12-29 10:08] LABS: BUN Creatinine Ratio 19.1 (10-20); Creatinine Clr Calc Pharmacy 17.9 ml/min; Est GFR (African American) 18.2 ml/min; Est GFR (Non-African American) 15.7 ml/min; Potassium 3.7 mmol/L (3.5-5.1)
--- NOTE | 2023-12-29 19:12 | Hospitalist Progress Note ---
Date of Service December 29, 2023 Assessment & Plan (1) Decubitus ulcer of buttock, unstageable: Plan: b/l buttock decubitus ulcers continue frequent turning and repositioning continue wound management as advised by the wound care team appreciate palliative care assistance with pain meds appreciate wound care team assistance pt's wound cx grew proteus and e.coli s/p 3 days of IV ertapenem 500mg daily changed to cipro 400mg daily IV; day #6. Leukocytosis persists on today's labs at 14K plan 7-10 days of total abx then stop pain in buttock continues to be one of her largest issues ordered lidocaine jelly prn to jeana-wound areas and this is helping thus far Dr Sewell suggested use of morphine gel which needs to be compounded - she contacted an outpatient pharmacy which will be able to compound and ship to Pauline's family I discussed with inpatient pharmacist - ordering ingredients to compound Pain control has been challenging because of somnolence and altered mental status on low doses of opioids trial of 5 mg hydrocodone/APAP seems to be modestly effective -no IV doses overnight Cont dilaudid 0.25mg IV prn for refractory pain to the above regimen (2) 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 Had been on fentanyl patch with improved pain. The fentanyl patch was weaned off last week, however, as it was causing excess sedation, confusion and potentially low BP. Treated with IV dexamethasone through 12/25 her usual prednisone 10mg/day. Radiating pain to the b/l groin sounds like radicular pain from the l-spine -- this symptom has improved. had trial of gabapentin, she refused it. See #1 re: morphine gel. See #1 re: IV/PO narcotics. (3) ESRD needing dialysis: Plan: dialyzes in [place] 2x's week - Tue/Tuesday nephrology advising to dialyze 3 days per week but I don't think she would tolerate such not even sure that when she gets home she will tolerate any HD moving forward given her current status discussed with wound nurse - she can be provided with a pressure relief cushion for sitting during outpatient dialysis/transport. Has not been tolerating sitting recently however. (4) Atrial fibrillation: Plan: mostly NSR this admission but converted to a.fib - rate-controlled - a few days ago she is rate-controlled even off of her usual metoprolol NOT on chronic anticoagulation (5) Type 2 diabetes mellitus: Plan: Cont lantus Continue Novolog BG above goal x2 last 24h No changes today but consider increase (6) Transaminitis: Plan: Resolved (7) Breast cancer: Plan: dx 2020; now metastatic to lung, bone (T-spine,L-spine), possibly the liver, etc follows with [facility] Dr Nehal Parks on fulvestrant monthly - received this last week here at [facility] started recently on 10mg prednisone for hypercalcemia PPI BID for GI prophylaxis (8) Malignant neoplasm of breast metastatic to bone: Plan: as above (9) Failure to thrive: Plan: 2nd to stage 4 breast ca in the context of severe deconditioning, recurrent prolonged hospital stays, ESRD status on HD, severe pain in multiple locations, b/l buttock decubiti, wound infection of buttock, etc very poor appetite prognosis very very poor Plan hyponatremia - improved to 131 today's labs VTE prophylaxis: heparin SC stopped due to severe bruising of pannus cont Knee-high SCDs spoke with Adele, pt's spouse, in person at bedside 12/26, 12/27 [facility] discussion 12/27 - per Dr. Sewell's note: "Pt and spouse both in agreement for DNR/DNI. Pt states she does not want to be placed on machines and does not want to in the hospital. She wants to be home and with her family. SHe does not want to prolong dying. in agreement and adds that pt has always been clear she does not want to be placed on machines. She does not want SENIOR QUALITY CONTROL INSPECTOR She wants to keep trying to fix what's fixable and treat what's treatable, but if she has a natural , allow it and assure comfort through the dying process" Admission and Anticipated Discharge Date Admission Date: December 08, 2023 Subjective Having severe pain buttocks, just had wound care and finishing PT, just had dose pain medicine Only PT she has been tolerating is gentle ROM/stretching in bed. Has not been standing several weeks. Physical Exam 2 Physical Exam: PHYSICAL EXAMINATION Last 24h vital signs reviewed, see documentation in flowsheet General: eyes closed but awake, painful HEENT: moist mucus membranes Lungs: Normal resp effort Clear to auscultation bilaterally anteriorly. No RRW Heart: Regular rate and rhythm, no murmurs. No JVD. Rt chest tunneled HD line dressed Abdomen: Soft, nontender, nondistended. Bowel sounds present. Extremities: Warm, dry, well-perfused. 1-2+ extremity edema. Neuro: alert and talking, face symmetric, moves 4 extremities, globally very weak Psych: currently in pain Results & Data Results & Data Vital Signs (Past 12 Hours) Vital Signs Temp Pulse Pulse Pulse Resp BP BP 12/29/23 15:53 35.8 C L 80 16 90/54 L 12/29/23 15:43 69 12/29/23 12:00 12/29/23 11:15 36.3 C L 89 16 98/65 L 12/29/23 08:25 91 H 12/29/23 07:22 36.4 C L 80 14 100/64 Pulse Ox O2 Del Method O2 Flow Rate 12/29/23 15:53 98 Nasal Cannula 2 12/29/23 15:43 12/29/23 12:00 Nasal Cannula 2 12/29/23 11:15 100 Nasal Cannula 2 12/29/23 08:25 12/29/23 07:22 98 Nasal Cannula 2 Laboratory Results 12/29/23 08:59 12/29/23 08:59 PG Care Time/CCT Total # of Minutes Spent Total Time Spent with Patient: Total time spent is greater than 50% in coordination of care (as documented) at patient's floor/unit and/or counseling patient: Coding Level of Care Code 11784 SUB INP/OBS CARE 2/35MIN Diagnoses Decubitus ulcer of buttock, unstageable L89.300 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
[2023-12-30] MEDS ORDERED: SODIUM CHLORIDE 0.9% 1,000 ML IV PRN (07:00)
--- NOTE | 2023-12-30 08:48 | Nephrology Progress Note ---
Date of Service December 30, 2023 Assessment & Plan (1) ESRD (end stage renal disease): Plan: * Will provide HD today for 2.5 hours and attempt 1-2 L UF. Keep 2 K bath due to h/o interdialytic hyperkalemia * Outpatient HD Rx: JOEY Rodriguez 2.5hr, 2K 2Ca, F-180NR. EDW 90 kg. Access R IJ TCC (2) Anemia: Plan: * Outpatient Rx: Venofer 100 mg IVP with HD and Micera 30 IVP q 2 weeks with HD * Will provide Epogen 10,000 units w/ HD today (3) Sacral ulcer: Plan: * Continue measures to reduce pressure at sacral decubitus * Continue topical lidocaine q6 hours * Wound care is providing Aquacel to sacral wound * Patient and spouse have met w/ Palliative Care. She wishes to continue HD and conservative medical care. She does not want to escalate care and is now DNR/DNI (4) Breast cancer: (5) Metastatic cancer to spine: Admission and Anticipated Discharge Date Admission Date: December 08, 2023 Subjective Miss Beyer was evaluated in her hospital room this morning. She remains comfortable on low dose Hydrocodone. She is agreeable to HD today Review of Systems Constitutional: no fever Eyes: no problem reported Ear, Nose, Mouth, Throat: no problem reported Respiratory: no cough and no dyspnea Cardiovascular: no chest pain Gastrointestinal: no abdominal pain, no nausea, no vomiting and no diarrhea/loose stools Integumentary: no rash Physical Exam Constitutional: not in distress Eyes: PERRL, conjunctivae normal, anicteric sclerae ENMT: external ear and nose normal, oropharynx normal Neck: trachea midline, no thyromegaly Respiratory: normal respiratory effort, lungs clear to auscultation Cardiovascular: RRR, no murmur, no edema Gastrointestinal (Abdomen): normal bowel sounds, soft, nontender, no hepatosplenomegaly Skin: no rashes, warm and dry Neurologic: Speech / Cognition: normal speech and normal cognition Psychiatric: Affect: + depressed affect Results & Data Vital Signs (Past 12 Hours) Vital Signs Temp Pulse Pulse Resp BP Pulse Ox O2 Del Method 12/30/23 07:54 36.3 C L 79 18 94/54 L 99 Nasal Cannula 12/30/23 04:20 36.6 C 72 18 102/60 100 Nasal Cannula 12/30/23 00:00 73 12/29/23 23:32 36.5 C 74 18 79/53 L 99 Nasal Cannula O2 Flow Rate 12/30/23 07:54 2 12/30/23 04:20 2 12/30/23 00:00 12/29/23 23:32 2 Laboratory Results Laboratory Results - last 24 hr 12/29/23 12/29/23 12/29/23 08:59 11:48 17:10 WBC 14.31 H RBC 2.56 L Hgb 8.9 L Hct 29.0 L MCV 113.3 H MCH 34.8 H MCHC 30.7 L RDW Std Deviation 75.9 H RDW Coeff of Amparo 18.9 H Plt Count 149 MPV 10.7 Absolute Nucleated RBC 0.07 Nucleated RBC % (auto) 0.5 Sodium 132 L Potassium 3.7 Chloride 98 Carbon Dioxide 23 Anion Gap 11 BUN 54 H Creatinine 2.82 H Est Cr Clr Drug Dosing 17.9 Est GFR ( Amer) 18.2 Est GFR (Non-Af Amer) 15.7 BUN/Creatinine Ratio 19.1 Glucose 142 H POC Glucose 165 H 193 H Calcium 9.0 12/29/23 12/30/23 20:10 07:52 WBC RBC Hgb Hct MCV MCH MCHC RDW Std Deviation RDW Coeff of Amparo Plt Count MPV Absolute Nucleated RBC Nucleated RBC % (auto) Sodium Potassium Chloride Carbon Dioxide Anion Gap BUN Creatinine Est Cr Clr Drug Dosing Est GFR ( Amer) Est GFR (Non-Af Amer) BUN/Creatinine Ratio Glucose POC Glucose 172 H 127 H Calcium PG Care Time/CCT Total # of Minutes Spent Total Time Spent with Patient: Total time spent is greater than 50% in coordination of care (as documented) at patient's floor/unit and/or counseling patient: Coding Level of Care Code 72429 SUB INP/OBS CARE 3/50MIN Diagnoses ESRD (end stage renal disease) N18.6 Anemia D64.9 Sacral ulcer L98.429 Breast cancer C50.912 Breast location: unspecified site of breast Estrogen receptor status: unspecified Laterality: left Patient sex: female Metastatic cancer to spine C79.51 (4) Breast cancer Breast location: unspecified site of breast Estrogen receptor status: unspecified Laterality: left Patient sex: female Qualified Code(s): C50.912 - Malignant neoplasm of unspecified site of left female breast
[2023-12-30] MEDS: HEPARIN SOD (PORCINE) 1000 UNIT/ML IV ONE (09:19)
[2023-12-30] MEDS: EPOETIN ALFA 10,000 UNITS/ML VIAL IV ONE (11:16)
--- NOTE | 2023-12-30 17:40 | Hospitalist Progress Note ---
Date of Service December 30, 2023 Assessment & Plan (1) Decubitus ulcer of buttock, unstageable: Plan: b/l buttock decubitus ulcers continue frequent turning and repositioning continue wound management as advised by the wound care team appreciate palliative care assistance with pain meds appreciate wound care team assistance pt's wound cx grew proteus and e.coli s/p 3 days of IV ertapenem 500mg daily changed to cipro 400mg daily IV; day #7. Leukocytosis persists on 12/28 labs at 14K plan 7-10 days of total abx then stop pain in buttock continues to be one of her largest issues ordered lidocaine jelly prn to jeana-wound areas and this is helping thus far Dr Sewell suggested use of morphine gel which needs to be compounded - she contacted an outpatient pharmacy which will be able to compound and ship to Pauline's family I discussed with inpatient pharmacist - ordering ingredients to compound Pain control has been challenging because of somnolence and altered mental status on low doses of opioids trial of 5 mg hydrocodone/APAP seems to be effective - one IV doses overnight Cont dilaudid 0.25mg IV prn for refractory pain to the above regimen (2) 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 Had been on fentanyl patch with improved pain. The fentanyl patch was weaned off last week, however, as it was causing excess sedation, confusion and potentially low BP. Treated with IV dexamethasone through 12/25 her usual prednisone 10mg/day. Radiating pain to the b/l groin sounds like radicular pain from the l-spine -- this symptom has improved. had trial of gabapentin, she refused it. See #1 re: morphine gel. See #1 re: IV/PO narcotics. (3) ESRD needing dialysis: Plan: dialyzes in [place] 2x's week - Tue/Tuesday nephrology advising to dialyze 3 days per week but I don't think she would tolerate such not even sure that when she gets home she will tolerate any HD moving forward given her current status discussed with wound nurse - she can be provided with a pressure relief cushion for sitting during outpatient dialysis/transport. Has not been tolerating sitting recently however. -tolerated 2.5h HD today (4) Atrial fibrillation: Plan: NSR and afib this admission she is rate-controlled even off of her usual metoprolol NOT on chronic anticoagulation (5) Type 2 diabetes mellitus: Plan: Cont lantus Continue Novolog At goal last 24h No changes today (6) Transaminitis: Plan: Resolved (7) Breast cancer: Plan: dx 2020; now metastatic to lung, bone (T-spine,L-spine), possibly the liver, etc follows with [facility] [place], Dr Calvert on fulvestrant monthly - received this last week here at [facility] started recently on 10mg prednisone for hypercalcemia PPI BID for GI prophylaxis (8) Malignant neoplasm of breast metastatic to bone: Plan: as above (9) Failure to thrive: Plan: 2nd to stage 4 breast ca in the context of severe deconditioning, recurrent prolonged hospital stays, ESRD status on HD, severe pain in multiple locations, b/l buttock decubiti, wound infection of buttock, etc very poor appetite prognosis very very poor Plan hyponatremia - improved to 131 today's labs VTE prophylaxis: heparin SC stopped due to severe bruising of pannus cont Knee-high SCDs spoke with Adele, pt's spouse, in person at bedside 12/26, 12/27, 12/29 [facility] discussion 12/27 - per Dr. Sewell's note: "Pt and spouse both in agreement for DNR/DNI. Pt states she does not want to be placed on machines and does not want to in the hospital. She wants to be home and with her family. SHe does not want to prolong dying. in agreement and adds that pt has always been clear she does not want to be placed on machines. She does not want SERVICES ADVISOR She wants to keep trying to fix what's fixable and treat what's treatable, but if she has a natural , allow it and assure comfort through the dying process" Admission and Anticipated Discharge Date Admission Date: December 08, 2023 Subjective Having a good day today. Adele at bedside. Vicodin working well for pain. Buttocks pain remains severe with wound care, moving, transport, PT Physical Exam Physical Exam: PHYSICAL EXAMINATION Last 24h vital signs reviewed, see documentation in flowsheet General: awake alert lying in bed, best I've seen her this week HEENT: moist mucus membranes Lungs: Normal resp effort Clear to auscultation bilaterally anteriorly. No RRW Heart: Regular rate and rhythm, no murmurs. No JVD. Rt chest tunneled HD line dressed Abdomen: Soft, nontender, nondistended. Bowel sounds present. Extremities: Warm, dry, well-perfused. 1-2+ extremity edema. Neuro: alert and talking Ox4, face symmetric, moves 4 extremities, globally very weak Psych: bright affect today, good spirits Results & Data Results & Data Vital Signs (Past 12 Hours) Vital Signs Temp Pulse Pulse Pulse Pulse Resp BP 12/30/23 15:24 36.3 C L 84 16 12/30/23 12:30 36.3 C L 76 18 12/30/23 11:55 36.3 C L 82 12/30/23 11:30 82 121/48 L 12/30/23 11:00 81 127/61 12/30/23 10:30 88 109/63 12/30/23 10:00 80 155/53 H 12/30/23 09:30 79 138/59 L 12/30/23 09:29 36.3 C L 84 12/30/23 09:14 82 122/68 12/30/23 07:54 36.3 C L 79 18 BP BP Pulse Ox O2 Del Method O2 Flow Rate 12/30/23 15:24 96/62 L 100 Nasal Cannula 2 12/30/23 12:30 95/64 L 96 Nasal Cannula 2 12/30/23 11:55 112/57 L 12/30/23 11:30 12/30/23 11:00 12/30/23 10:30 12/30/23 10:00 12/30/23 09:30 12/30/23 09:29 12/30/23 09:14 12/30/23 07:54 94/54 L 99 Nasal Cannula 2 PG Care Time/CCT Total # of Minutes Spent Total Time Spent with Patient: Total time spent is greater than 50% in coordination of care (as documented) at patient's floor/unit and/or counseling patient: Coding Level of Care Code 12421 SUB INP/OBS CARE 1/25MIN Diagnoses Decubitus ulcer of buttock, unstageable L89.300 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
--- NOTE | 2023-12-30 20:18 | Communication Note ---
Date of Service: December 30, 2023 Brief Pall Med Note I contacted [facility] in [facility] which offers compounding, and have written order for topical morphine wound cream. This order was electronically submitted and confirmed receipt with pharmacist, Billy. Patient and pharmacist have already spoken and confirmed delivery and payment information; will bring topical morphine to [facility] once it is delivered to their home. TS 28min Thank you for allowing us to participate in the ongoing care of this patient. Please don't hesitate to call or page with any additional concerns. Dr. Katinaa Sewell DNP Director, Palliative Care
--- NOTE | 2023-12-31 11:45 | Nephrology Progress Note ---
Date of Service December 31, 2023 Assessment & Plan (1) ESRD (end stage renal disease): (2) Hypercalcemia: (3) Hyperkalemia: (4) Anemia: (5) Metastatic cancer to spine: (6) Sacral ulcer: Plan 73 year old with ESKD due to recurrent JEFFREY, hypercalcemia, dialyzes M,F at [facility] (2.5hr, 400/800, 2K 2Ca, F-180NR, EDW 90 kg) via R IJ TCC admitted with back pain and sacral decubitus. PMH of breast cancer with metastasis to bone including the lumbar spine, recurrent hypercalcemia, HFpEF, Mobitz type I second-degree AV block, dyslipidemia, AODM, HTN, GERD, and MCKENZIE. Has been having recurrent admissions over last few months with back and hip pain. CT scan of the lumbar spine on 12/08/23 showed multiple areas of skeletal metastatic lesion in the lower thoracic and lumbar spine, possible T12 vertebral pathologically fracture and moderate to severe degenerative disease. CT scan showed possible metastatic disease in liver as well. Previous imaging showed L1 vertebral body with radiolucency concerning for lytic disease/pathologic fracture and had kyphoplasty. Overall she has been doing poorly although pain seem to be slightly better. Palliative care has been following, currently DNR/DNI. BP low, volume status acceptable. Feeling better today, pain improved, denies dizziness, lightheadedness or confusion. Had dialysis yesterday. --Plan for HD Tuesday and continue on Tuesday, , Tuesday schedule, 2.5 hours. --Labs tomorrow --Epogen 34807 units with next HD --continue on Nephrocaps daily Admission and Anticipated Discharge Date Admission Date: December 08, 2023 Subjective Pauline was seen and evaluated this morning. She reports feeling better today. Appetite remains poor. BP relatively low, volume status acceptable. Had HD Tuesday. Review of Systems Review of Systems: Detailed review of system was done and pertinent positives and negatives are mentioned above. Physical Exam Constitutional: WD/WN, vitals as above + ill appearing pale appearing. Eyes: + anicteric sclerae Neck: normal visual inspection Respiratory: Auscultation: lungs clear to auscultation bilaterally Cardiovascular: RRR, no murmur, no edema Extremities: + vascular access device (Rt IJ TDC) Skin: + ulcer (sacral decubitus) Neurologic: no focal motor deficits Psychiatric: Orientation: alert and oriented x 3 Results & Data Vital Signs (Past 12 Hours) Vital Signs Temp Pulse Pulse Resp BP Pulse Ox O2 Del Method 12/31/23 11:05 83 12/31/23 07:57 36.8 C 76 18 95/64 L 100 Nasal Cannula 12/31/23 04:02 36.6 C 88 18 103/67 98 Nasal Cannula 12/30/23 23:52 Nasal Cannula 12/30/23 23:48 85 O2 Flow Rate 12/31/23 11:05 12/31/23 07:57 2 12/31/23 04:02 2 12/30/23 23:52 2 12/30/23 23:48 PG Care Time/CCT Total # of Minutes Spent Total Time Spent with Patient: Total time spent is greater than 50% in coordination of care (as documented) at patient's floor/unit and/or counseling patient: Coding Level of Care Code 82723 SUB INP/OBS CARE 2/35MIN Diagnoses ESRD (end stage renal disease) N18.6 Hypercalcemia E83.52 Hyperkalemia E87.5 Anemia D64.9 Metastatic cancer to spine C79.51 Sacral ulcer L98.429
--- NOTE | 2023-12-31 15:44 | Hospitalist Progress Note ---
Date of Service December 31, 2023 Assessment & Plan (1) Hypotension: Plan: Has been intermittently and increasingly hypotensive despite not being on usual diuretics or metoprolol Today 70s-80s/40s and asymptomatic. I think this reflects general decline and severe deconditioning. Possibly hypovolemic. Still on broad spectrum abx through this AM, unlikely sepsis. Ordered 25g albumin bolus. AM labs - CBC, BMP, albumin (2) Decubitus ulcer of buttock, unstageable: Plan: b/l buttock decubitus ulcers continue frequent turning and repositioning continue wound management as advised by the wound care team appreciate palliative care assistance with pain meds appreciate wound care team assistance pt's wound cx grew proteus and e.coli s/p 3 days of IV ertapenem 500mg daily then cipro IV through 12/30 (completes 10d total) pain in buttock continues to be one of her largest issues ordered lidocaine jelly prn to jeana-wound areas and this is helping thus far Dr Sewell suggested use of morphine gel which needs to be compounded - she contacted an outpatient pharmacy which will be able to compound and ship to Pauline's family I discussed with inpatient pharmacist - ordering ingredients to compound Pain control has been challenging because of somnolence and altered mental status on low doses of opioids trial of 5 mg hydrocodone/APAP seems to be effective Cont dilaudid 0.25mg IV prn for refractory pain to the above regimen Wound care observed 12/30 - appears similar to past photos except for some expected increase in size of eschar L buttock. 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 Had been on fentanyl patch with improved pain. The fentanyl patch was weaned of f last week, however, as it was causing excess sedation, confusion and potentially low BP. Treated with IV dexamethasone through 12/25 her usual prednisone 10mg/day. Radiating pain to the b/l groin sounds like radicular pain from the l-spine -- this symptom has improved. had trial of gabapentin, she refused it. See #1 re: morphine gel. See #1 re: IV/PO narcotics. (4) ESRD needing dialysis: Plan: dialyzes in [address]'s week - Tue/Tuesday nephrology advising to dialyze 3 days per week but I don't think she would tolerate such not even sure that when she gets home she will tolerate any HD moving forward given her current status discussed with wound nurse - she can be provided with a pressure relief cushion for sitting during outpatient dialysis/transport. Has not been tolerating sitting recently however. -tolerated 2.5h HD 12/29 (5) Atrial fibrillation: Plan: NSR and afib this admission she is rate-controlled even off of her usual metoprolol NOT on chronic anticoagulation (6) Type 2 diabetes mellitus: Plan: Cont lantus Slightly increase aspart CF/CR (7) Transaminitis: Plan: Resolved (8) Breast cancer: Plan: dx 2020; now metastatic to lung, bone (T-spine,L-spine), possibly the liver, etc follows with [facility] [place], Dr Calvert on fulvestrant monthly - received this last week here at [facility] started recently on 10mg prednisone for hypercalcemia PPI BID for GI prophylaxis (9) Malignant neoplasm of breast metastatic to bone: Plan: as above (10) Failure to thrive: Plan: 2nd to stage 4 breast ca in the context of severe deconditioning, recurrent prolonged hospital stays, ESRD status on HD, severe pain in multiple locations, b/l buttock decubiti, wound infection of buttock, etc very poor appetite prognosis very very poor Plan hyponatremia - stable, moderate, related to ESRD VTE prophylaxis: heparin SC stopped due to severe bruising of pannus cont Knee-high SCDs spoke with Adele, pt's spouse, in person at bedside 12/26, 12/27, 12/29, 12/30 [facility] discussion 12/27 - per Dr. Sewell's note: "Pt and spouse both in agreement for DNR/DNI. Pt states she does not want to be placed on machines and does not want to in the hospital. She wants to be home and with her family. SHe does not want to prolong dying. in agreement and adds that pt has always been clear she does not want to be placed on machines. She does not want ROUGHER HELPER She wants to keep trying to fix what's fixable and treat what's treatable, but if she has a natural , allow it and assure comfort through the dying process" Admission and Anticipated Discharge Date Admission Date: December 08, 2023 Subjective Seen noontime and was pretty comfortable states vicodin helping having another pretty good day. No confusion. No dyspnea. Adele reports she ate well for lunch. Seen in afternoon during wound care and that was extremely painful Physical Exam Physical Exam: PHYSICAL EXAMINATION Last 24h vital signs reviewed, see documentation in flowsheet General: awake alert lying in bed HEENT: moist mucus membranes Lungs: Normal resp effort Clear to auscultation bilaterally anteriorly. No RRW Heart: Regular rate and rhythm, no murmurs. No JVD. Rt chest tunneled HD line dressed Abdomen: Soft, nontender, nondistended. Bowel sounds present. Extremities: Warm, dry, well-perfused. 1+ extremity edema. Neuro: alert and talking Ox4, face symmetric, moves 4 extremities, globally very weak Psych: calm, good spirits Wound care: bilateral buttock wounds left side covered by dark eschar, right side with ulcerations some yellow exudate no drainage, no surrounding erythema either side. L hip wound covered by dark eschar, dry without erythema or drai nage. Multiple shallow ulcerations under pannus and one shallow ulceration medial L ankle clean based all these without drainage or surrounding erythema Results & Data Results & Data Vital Signs (Past 12 Hours) Vital Signs Temp Pulse Pulse Resp BP BP Pulse Ox 12/31/23 13:55 74/41 L 12/31/23 12:00 86/46 L 12/31/23 11:52 36.4 C L 76 20 72/32 L 87/42 L 99 12/31/23 11:05 83 12/31/23 07:57 36.8 C 76 18 95/64 L 100 12/31/23 04:02 36.6 C 88 18 103/67 98 O2 Del Method O2 Flow Rate 12/31/23 13:55 12/31/23 12:00 12/31/23 11:52 Nasal Cannula 2 12/31/23 11:05 12/31/23 07:57 Nasal Cannula 2 12/31/23 04:02 Nasal Cannula 2 PG Care Time/CCT Total # of Minutes Spent Total Time Spent with Patient: I personally spent: 50 minutes today on clinical care activities including: reviewing chart notes and vital signs examining and counseling the patient Examining patient during wound care Discussions with bedside RN counseling the patient's family writing orders documentation Coding Level of Care Code 43323 SUB INP/OBS CARE 3/50MIN Diagnoses Hypotension I95.9 Decubitus ulcer of buttock, unstageable L89.300 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
[2023-12-31] MEDS: ALBUMIN 25% 25 GM/100 ML VIAL IV ONE (15:58)
[2024-01-01 05:32] LABS: Hemoglobin 8.8 g/dl (12.0-16.0); Mean Corpuscular Hemoglobin 35.2 pg (25.0-34.0); Mean Corpuscular Hgb Conc 31.4 g/dL (32.0-36.0); Mean Platelet Volume 10.6 fL (9.4-12.4); Nucleated RBC % (auto) 0.6 %; Platelet Count 119 K/uL (130-400); RDW Standard Deviation 76.3 fL (36.4-46.3)
[2024-01-01 05:49] LABS: Potassium 4.2 mmol/L (3.5-5.1)
[2024-01-01 05:55] LABS: BUN Creatinine Ratio 20.9 (10-20); Creatinine Clr Calc Pharmacy 15.7 ml/min; Est GFR (African American) 17.5 ml/min; Est GFR (Non-African American) 15.1 ml/min; Phosphorus 4.6 mg/dl (2.5-4.9)
[2024-01-01] MEDS ORDERED: VANCOMYCIN CONSULT ACTIVE PRN ×2 (11:29)
--- NOTE | 2024-01-01 12:08 | Pharmacy Report ---
Pharmacy PK ABX Note - Date of Service January 01, 2024 - Assessment and Plan Assessment 73 year old F receiving Vancomycin and Aztreonam for empiric treatment of hypotension. * Day #1 of antimicrobial therapy. * Afebrile. Leukocytosis of 17k. SCr 2.92 today but scheduled for HD tomorrow ( schedule). Plan Vancomycin * Loading dose: 1750 mg IV x 1 * No maintenance dose - dose per levels * Random level ordered for tomorrow morning (01/02/24) pre-HD Aztreonam * 2000 mg IV every 24 hours (give after dialysis on dialysis days) Pharmacy will continue to follow and will adjust dose/frequency as necessary. Thank you. Pharmacy has transitioned to AUC monitoring for vancomycin. AUC/GINNY is the preferred PK/PD target and is associated with decreased risk of nephrotoxicity compared to traditional trough targets.
--- NOTE | 2024-01-01 12:09 | Nephrology Progress Note ---
Date of Service January 01, 2024 Assessment & Plan (1) ESRD (end stage renal disease): (2) Hypercalcemia: (3) Hyperkalemia: (4) Anemia: (5) Metastatic cancer to spine: (6) Sacral ulcer: Plan 73 year old with ESKD due to recurrent JEFFREY, hypercalcemia, dialyzes M,F at [facility] (2.5hr, 400/800, 2K 2Ca, F-180NR, EDW 90 kg) via R IJ TCC admitted with back pain and sacral decubitus. PMH of breast cancer with metastasis to bone including the lumbar spine, recurrent hypercalcemia, HFpEF, Mobitz type I second-degree AV block, dyslipidemia, AODM, HTN, GERD, and MCKENZIE. Has been having recurrent admissions over last few months with back and hip pain. CT scan of the lumbar spine on 12/08/23 showed multiple areas of skeletal metastatic lesion in the lower thoracic and lumbar spine, possible T12 vertebral pathologically fracture and moderate to severe degenerative disease. CT scan showed possible metastatic disease in liver as well. Previous imaging showed L1 vertebral body with radiolucency concerning for lytic disease/pathologic fracture and had kyphoplasty. Palliative care has been following, currently DNR/DNI. Clinically continues to decline, seems more lethargic today, blood pressure has been staying really low. Hemoglobin stable, electrolyte acceptable. --Plan for HD Tuesday, although unclear whether she will even tolerate dialysis and will be able to do any UF if she remains this hypertensive. --Epogen 72150 units with next HD --continue on Nephrocaps daily --Overall prognosis remains guarded Admission and Anticipated Discharge Date Admission Date: December 08, 2023 Subjective Pauline was seen and evaluated this morning. Overall she seems to be doing poorly today. Although she was awake, alert and answered questions appropriately but is she is saying more lethargic and has been significantly hypotensive over last 12 hours, systolic blood pressure this morning mostly staying around 70s and diastolic in 30s to 40s. She just finished antibiotic yesterday. She has not been making much urine. Generally looks edematous in her extremities but denies shortness of breath Review of Systems Review of Systems: Detailed review of system was done and pertinent positives and negatives are mentioned above. Physical Exam Constitutional: WD/WN, vitals as above + ill appearing and comfortable Eyes: + anicteric sclerae Neck: normal visual inspection Respiratory: Auscultation: + diminished lung sounds Cardiovascular: Rate/Rhythm: regular rate and regular rhythm Heart Sounds: normal S1 and normal S2 Extremities: + edema and + vascular access device (Rt IJ TDC) Skin: + rash and + ulcer (sacral decubitus); n o jaundice Neurologic: awake; no focal motor deficits Psychiatric: Orientation: alert and oriented x 3 Results & Data Vital Signs (Past 12 Hours) Vital Signs Temp Pulse Pulse Pulse Resp BP BP 01/01/24 11:49 36.2 C L 84 16 67/35 L 01/01/24 08:35 36.4 C L 81 16 75/31 L 01/01/24 07:36 89 01/01/24 04:06 01/01/24 02:09 36.5 C 81 18 91/57 L Pulse Ox O2 Del Method O2 Flow Rate 01/01/24 11:49 98 Nasal Cannula 2 01/01/24 08:35 99 Nasal Cannula 2 01/01/24 07:36 01/01/24 04:06 Nasal Cannula 2 01/01/24 02:09 99 Nasal Cannula 2 PG Care Time/CCT Total # of Minutes Spent Total Time Spent with Patient: Total time spent is greater than 50% in coordination of care (as documented) at patient's floor/unit and/or counseling patient: Coding Level of Care Code 82297 SUB INP/OBS CARE MIN Diagnoses ESRD (end stage renal disease) N18.6 Hypercalcemia E83.52 Hyperkalemia E87.5 Anemia D64.9 Metastatic cancer to spine C79.51 Sacral ulcer L98.429
[2024-01-01] MEDS: SODIUM CHLORIDE 0.9% 500 ML IV ONE (12:12)
[2024-01-01] MEDS: MIDODRINE HCL 2.5 MG TAB PO SCH (12:58)
[2024-01-01] MEDS: ALBUMIN 25% 25 GM/100 ML VIAL IV SCH (13:04)
--- NOTE | 2024-01-01 13:13 | Hospitalist Progress Note ---
Date of Service January 01, 2024 Assessment & Plan (1) Hypotension: Plan: Has been intermittently and increasingly hypotensive despite not being on usual diuretics or metoprolol. Yesterday had BPs 70s-80s/40s and asymptomatic. Temporarily responded to albumin 25g. Has recurrent severe hypotension today SBP in 70s downtrended to 60s by midday. BPs may not be very accurate since she is mentating adequately (though poor insight), warm extremities except for feet which are often cool, thready radial pulse. Was on IV cefepime though yesterday AM. Has multiple antibiotic allergies. WBC increased overnight and leukocytosis never normalized on antibiotics. Is newly and mildly thrombocytopenic. Metabolic acidosis with anion gap of 15. Albumin down to 3.0. Hct is stable at 28. Procalcitonin mildly elevated at 0.81 I am very concerned about progressive decline. It is possible she has hypovolemia, sepsis, PE (though seems unlikely since hypoxia not worse, no dyspnea chest pain or tachycardia), or multifactorial decline related to multiple complex acute and chronic issues including metastatic cancer, ESRD, immunosuppression related to these issues and chronic steroids, chronic diastolic heart failure, failure to thrive debility. Prognosis from any of these causes other than hypovolemia is extremely poor and chances are high that Pauline is in terminal decline. Further aggressive workup (with CT scans or even x- rays), will cause severe pain so will focus on empiric treatment for potentially reversible causes. I discussed my concerns with Adele her spouse and she is aware of the gravity of the situation. She is also aware that Pauline previously discussed with Dr. Sewell not escalating care, with intubation, CPR, life support, ICU for example. I recommended comfort measures if this progresses to the point she is no longer alert and not improving despite the below measures. -IV NS bolus - start with 500 mL and 50 g albumin -blood cultures -started broad spectrum empiric antibiotics with aztreonam and vancomycin -deferring radiology because of severe pain with any repositioning. not urinating recently. -start midodrine tid -stress dose steroids -consider empiric apixaban, will at least start prophylaxis dose - SQ heparin was stopped because injections were causing severe bruising and pain -discussed with Dr. Varner, bedside RN, charge nurse -moving to PCU (2) Decubitus ulcer of buttock, unstageable: Plan: b/l buttock decubitus ulcers continue frequent turning and repositioning continue wound management as advised by the wound care team appreciate palliative care assistance with pain meds appreciate wound care team assistance pt's wound cx grew proteus and e.coli s/p 3 days of IV ertapenem 500mg daily then cipro IV through 12/30 (completes 10d total) pain in buttock continues to be one of her largest issues ordered lidocaine jelly prn to jeana-wound areas and this is helping thus far Dr Sewell suggested use of morphine gel which needs to be compounded - she contacted an outpatient pharmacy which will be able to compound and ship to Pauline's family I discussed with inpatient pharmacist - ordering ingredients to compound Pain control has been challenging because of somnolence and altered mental status on low doses of opioids trial of 5 mg hydrocodone/APAP seems to be effective Cont dilaudid 0.25mg IV prn for refractory pain to the above regimen Wound care observed 12/30 - appears similar to past photos except for some expected increase in size of eschar L buttock. 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 Had been on fentanyl patch with improved pain. The fentanyl patch was weaned off last week, however, as it was causing excess sedation, confusion and potentially low BP. Treated with IV dexamethasone through 12/25 her usual prednisone 10mg/day. Radiating pain to the b/l groin sounds like radicular pain from the l-spine -- this symptom has improved. had trial of gabapentin, she refused it. See #1 re: morphine gel. See #1 re: IV/PO narcotics. (4) ESRD needing dialysis: Plan: dialyzes in [place] 2x's week - Tue/Tuesday nephrology advising to dialyze 3 days per week but I don't think she would tolerate such not even sure that when she gets home she will tolerate any HD moving forward given her current status discussed with wound nurse - she can be provided with a pressure relief cushion for sitting during outpatient dialysis/transport. Has not been tolerating sitting recently however. -tolerated 2.5h HD 12/29 -too hypotensive for dialysis at this time (5) Atrial fibrillation: Plan: NSR and afib this admission she is rate-controlled even off of her usual metoprolol NOT on chronic anticoagulation (6) Type 2 diabetes mellitus: Plan: Cont lantus aspart CF/CR eating poorly (7) Transaminitis: Plan: Resolved (8) Breast cancer: Plan: dx 2020; now metastatic to lung, bone (T-spine,L-spine), possibly the liver, etc follows with 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 Sewell's note: "Pt and spouse both in agreement for DNR/DNI. Pt states she does not want to be placed on machines and does not want to in the hospital. She wants to be home and with her family. SHe does not want to prolong dying. in agreement and adds that pt has always been clear she does not want to be placed on machines. She does not want AUTOMATIC TOE [employer] She wants to keep trying to fix what's fixable and treat what's treatable, but if she has a natural , allow it and assure comfort through the dying process" -see above Admission and Anticipated Discharge Date Admission Date: December 08, 2023 Subjective Was extremely painful all morning per bedside RN. Also more hypotensive again today, morning BPs in 70s/40s, SBP decreased to 60s midday 2 visits midday - currently Pauline says she feels good and has no pain. She denies shortness of breath CP lightheadedness or abdominal pain. She is not urinating recently since lasix was stopped. Had oral vicodin earlier. Physical Exam 2 Physical Exam: PHYSICAL EXAMINATION Last 24h vital signs reviewed, see documentation in flowsheet General: awake fairly alert lying in bed flat HEENT: dry mucus membranes Lungs: Normal resp effort Clear to auscultation bilaterally anteriorly. unable to get posterior exam. No RRW Heart: Regular rate and rhythm, no murmurs. Rt chest tunneled HD line dressed no erythema or swelling, no drainage Abdomen: Soft, nontender, nondistended. Bowel sounds present. Extremities: Warm, dry, well-perfused. 1+ extremity edema x arms and legs, unchanged. Neuro: alert and talking oriented to situation but unclear to me that she is processing how ill she is currently so may be having some cognitive dysfunction, face symmetric, moves 4 extremities, globally very weak Psych: calm Results & Data Results & Data Vital Signs (Past 12 Hours) Vital Signs Temp Pulse Pulse Pulse Resp BP BP 01/01/24 11:49 36.2 C L 84 16 67/35 L 01/01/24 08:35 36.4 C L 81 16 75/31 L 01/01/24 07:36 89 01/01/24 04:06 01/01/24 02:09 36.5 C 81 18 91/57 L Pulse Ox O2 Del Method O2 Flow Rate 01/01/24 11:49 98 Nasal Cannula 2 01/01/24 08:35 99 Nasal Cannula 2 01/01/24 07:36 01/01/24 04:06 Nasal Cannula 2 01/01/24 02:09 99 Nasal Cannula 2 Laboratory Results 01/01/24 04:51 01/01/24 04:51 PG Care Time/CCT Total # of Minutes Spent Total Time Spent with Patient: Total time spent is greater than 50% in coordination of care (as documented) at patient's floor/unit and/or counseling patient: Coding Level of Care Code 54454 SUB INP/OBS CARE 3/50MIN Diagnoses Hypotension I95.9 Decubitus ulcer of buttock, unstageable L89.300 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
[2024-01-01] MEDS: VANCOMYCIN HCL 1,750 MG in SODIUM CHLORIDE 0.9% 500 ML IV STA (13:27)
[2024-01-01] MEDS: AZTREONAM 2,000 MG in DEXTROSE 5% MINI-B 100 ML IV SCH (14:20)
[2024-01-01] MEDS: HYDROCORTISONE SOD 100 MG in SYRINGE 0 ML IV SCH (16:58)
[2024-01-01] MEDS: APIXABAN 2.5 MG TAB PO SCH (16:58)
[2024-01-01] MEDS: HYDROmorphone INJ 0.5 MG/0.5 ML SYR IV STA ×2 (18:42→20:09)
[2024-01-01] MEDS ORDERED: LORazepam 0.5 MG TAB PO PRN (20:30)
[2024-01-01] MEDS ORDERED: ONDANSETRON INJ 2 MG/ML 2 ML VIAL IV PRN (20:30)
[2024-01-01] MEDS ORDERED: ONDANSETRON 4 MG OD TAB SL PRN (20:30)
--- NOTE | 2024-01-01 20:44 | Communication Note ---
Date of Service: January 01, 2024 Called to pt's bedside by nursing due to severe, uncontrolled pain. Pt's spouse (at bedside) relayed wishes to move forward with comfort care as she states the pt was in agonizing pain and asking for more pain medicine and pt stated it's time for her to go- she wants to control her pain as much as possible. Previous discussions were held with day team and palliative medicine outlining how pt does not wish any aggressive medicines including CPR, invasive procedures, and intubation/ventilation. 3 more family members/friends arrived and joined discussion. Discussed overall poor/terminal prognosis especially in the setting of her progressive hypotension, ESRD, and metastatic breast cancer. Discussed options for care moving forward. Pt's spouse opts to move forward with [employer]TR T[employer]ER TRUCK DRIVER with the main goal being pain control. All questions and concerns of family and pt addressed. Communicated results of discussion with nursing staff. OTR TANKER TRUCK DRIVER orders placed.
[2024-01-01] MEDS: MoRPHine SULFATE 10 MG/0.5 ML UDP PO PRN (21:13)
[2024-01-01] MEDS: LORazepam 0.5 MG in SYRINGE 0.25 ML IV PRN (23:27)
[2024-01-01] MEDS: HYDROmorphone INJ 0.5 MG/0.5 ML SYR IV PRN (23:28)
[2024-01-02] MEDS: HYOSCYAMINE SULFATE 0.125 MG TAB SL PRN (01:28)
[2024-01-02] MEDS: ATROPINE SULFATE 1% OP SOLN 5 ML BTL SL PRN (01:28)
[2024-01-02] MEDS ORDERED: HYDROmorphone INJ 0.5 MG/0.5 ML SYR IV PRN ×2 (05:39)
[2024-01-02] MEDS: HYDROmorphone INJ 0.5 MG/0.5 ML SYR IV PRN (06:51)
[2024-01-02] MEDS: GLYCOPYRROLATE 0.2 MG/ML VIAL IV PRN (07:29)
[2024-01-02] MEDS ORDERED: HYDROmorphone HCL 4 MG TAB PO PRN (07:48)
[2024-01-02] MEDS ORDERED: HYDROmorphone/NSS 100 MG/100 ML BAG IV STA (08:40)
[2024-01-02] MEDS ORDERED: LORazepam 1 MG in SYRINGE 0.5 ML IV PRN (08:44)
[2024-01-02] MEDS ORDERED: GLYCOPYRROLATE 0.2 MG/ML VIAL IV PRN (08:44)
[2024-01-02] MEDS ORDERED: HYDROmorphone/NSS 100 MG/100 ML BAG IV SCH (08:45)
[2024-01-02] MEDS: HYDROmorphone/NSS 100 MG/100 ML BAG IV STA (09:06)
[2024-01-02] MEDS: HYDROmorphone BOLUS from BAG IV PRN (09:08)
--- NOTE | 2024-01-02 09:56 | Nephrology Progress Note ---
Date of Service January 02, 2024 Assessment & Plan (1) ESRD (end stage renal disease): (2) Hypercalcemia: (3) Hyperkalemia: (4) Anemia: (5) Metastatic cancer to spine: (6) Sacral ulcer: Plan 73 year old with ESKD due to recurrent JEFFREY, hypercalcemia, dialyzes M,F at [facility] (2.5hr, 400/800, 2K 2Ca, F-180NR, EDW 90 kg) via R IJ TCC admitted with back pain and sacral decubitus. PMH of breast cancer with metastasis to bone including the lumbar spine, recurrent hypercalcemia, HFpEF, Mobitz type I second-degree AV block, dyslipidemia, AODM, HTN, GERD, and MCKENZIE. Has been having recurrent admissions over last few months with back and hip pain. CT scan of the lumbar spine on 12/08/23 showed multiple areas of skeletal metastatic lesion in the lower thoracic and lumbar spine, possible T12 vertebral pathologically fracture and moderate to severe degenerative disease. CT scan showed possible metastatic disease in liver as well. Previous imaging showed L1 vertebral body with radiolucency concerning for lytic disease/pathologic fracture and had kyphoplasty. Palliative care has been following, currently DNR/DNI. Decided on ACTIVE DIRECTORY ARCHITECT yesterday evening, remain unresponsive. --continue with support on ACTIVE DIRECTORY ARCHITECT, seems comfortable, not in distress. Family at bedside. Admission and Anticipated Discharge Date Admission Date: December 08, 2023 Subjective Pauline was seen this morning with her family at bedside. She was persistently hypotensive yesterday most of the days and was in significant pain and eventually yesterday evening she made the decision to transition to comfort measures only. Currently she is not awake or alert, has not been responding to name. Blood pressure staying low. Physical Exam Constitutional: WD/WN, vitals as above + ill appearing and + lethargic PG Care Time/CCT Total # of Minutes Spent Total Time Spent with Patient: Total time spent is greater than 50% in coordination of care (as documented) at patient's floor/unit and/or counseling patient: Coding Level of Care Code 10309 SUB INP/OBS CARE 10/20MIN Diagnoses ESRD (end stage renal disease) N18.6 Hypercalcemia E83.52 Hyperkalemia E87.5 Anemia D64.9 Metastatic cancer to spine C79.51 Sacral ulcer L98.429
[2024-01-02] MEDS ORDERED: EPOETIN ALFA 10,000 UNITS/ML VIAL IV ONE (10:00)
--- NOTE | 2024-01-02 13:25 | Death Pronouncement Note ---
Date of Service January 02, 2024 Pronouncement Note Admission Date Admission Date: December 08, 2023 Date and Time of Date of : 01/02/24 Time of : 12:21 PCOD Preliminary cause of : Shock Contributing Factors (1) ESRD (end stage renal disease): (2) Hypercalcemia: (3) Hyperkalemia: (4) Anemia: (5) Metastatic cancer to spine: (6) Sacral ulcer: Additional Data Family: at bedside Attending/PCP notified?: Yes Attending physician: Lisa Chavira MD Was code activated?: No
--- NOTE | 2024-01-02 13:30 | Discharge Summary ---
Date of Service January 02, 2024 Admission HPI Per Admitting Provider 73 year old female with a past medical history of breast cancer, DM2, ESRD on HD, MCKENZIE, atrial fibrillation, CHF, GERD presenting with worsening of B/L hip pain and trouble ambulating. Was admitted from 11/27 to 12/03 after missed HD session and ongoing acute on chronic B/L hip pain. Had IR directed b/l intraarticular injections 11/30/23 and states that she did not have any improvement in pain. Since she has been home pain has gotten worse and her mobility has been significantly limited. Having trouble pivoting from chair to commode, issues getting out of the house to go to dialysis; has not missed any sessions. She has a history of breast cancer with bony metastasis. History of L1/L2 pathologic fractures s/p kyphoplasty end of [address] Adame. Denies fever, chills, chest pain, dyspnea, nausea/vomiting, bowel/bladder incontinence, saddle anesthesia. Principal Diagnosis 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, bilateral buttock ulcers, ESRD on hemodialysis and metastatic breast cancer with progressive decline Discharge Exam PHYSICAL EXAMINATION Last 24h vital signs reviewed, see documentation in flowsheet General: not arousable HEENT: dry mucus membranes Lungs: infrequent shallow respirations Heart: Regular rate and rhythm, no murmurs. Rt chest tunneled HD line dressed no erythema or swelling, no drainage Abdomen: Soft, nondistended. Extremities: 1+ extremity edema x arms and legs, unchanged. Toes are blue and feet and lower legs mottled Neuro: comatose, did not arouse to voice or exam Discharge Data Allergies Allergy/AdvReac Type Severity Reaction Status Date / Time amoxicillin Allergy Severe LIPS Verified 12/08/23 19:52 SWELLED, "RED ALL OVER" doxycycline Allergy Severe LIPS Verified 12/08/23 19:52 SWELLED, "RED ALL OVER". cephalexin [From Keflex] Allergy Intermediate skin Verified 12/08/23 19:52 starts to peel off sulfamethoxazole Allergy Unknown CAN'T Verified 12/08/23 19:52 [From Bactrim] REMEMBER trimethoprim [From Bactrim] Allergy Unknown CAN'T Verified 12/08/23 19:52 REMEMBER atorvastatin AdvReac Intermediate Myalgia Verified 12/08/23 19:52 Consultations 12/08/23 17:16 ED Decision to Admit Stat 12/08/23 19:47 Consult Nephrology Routine 12/14/23 09:18 Consult Pain Management Routine 12/14/23 13:50 Consult Orthopedic Surgery Routine 12/19/23 14:08 Consult Radiation Oncology Routine 12/20/23 10:56 Consult Palliative Care Routine 01/02/24 07:50 Consult Patient Services Routine Ordered Studies 12/08/23 16:42 CT lumbar spine wo con Stat 12/08/23 17:00 CT abd pelvis wo con Stat 12/11/23 US soft tissue ext ltd Routine Hospital Course (1) ESRD (end stage renal disease): (2) Hypercalcemia: (3) Hyperkalemia: (4) Anemia: (5) Metastatic cancer to spine: Breast cancer (6) Sacral ulcer: Plan 73 y/o with metastatic breast cancer to bone, ESRD on HD, afib, HFpEF admitted with buttock pain from wounds, bilateral hip pain, low back pain and inability to transfer or go to dialysis due to pain. Previously "admitted from 11/27 to 12/03 after missed HD session and ongoing acute on chronic B/L hip pain. Had IR directed b/l intraarticular injections 11/30/23 and states that she did not have any improvement in pain. Since she has been home pain has gotten worse and her mobility has been significantly limited. Having trouble pivoting from chair to commode, issues getting out of the house to go to dialysis" During this greater than three weeks admission Pauline had severe pain mainly from bilateral buttock decubitus ulcers. These were treated with wound care, pressure relief, and course of IV antibiotics for possible wound infection for 10 days through evening of 12/30. She had ongoing bilateral hip pain which seemed likely lumbar/radicular and was found to have new pathological fracture at T12. Radiation oncologist pain service and spine surgeon consulted. Pain was not really related to the compression fracture however so xrt and kyphoplasty not recommended, and further injections not recommended by pain computing services director especially with decubitus ulcers. Pain control was extremely challenging because Pauline experienced altered mental status and somnolence even with very small doses of opioids, gabapentin was not successful and she requested discontinuation. Palliative care consulted. Topical lidocaine around the wound was somewhat helpful and she tolerated vicodin 1 tablet and infrequent very low dose hydromorphone 0.25 mg. We attempted to get supply of topical morphine for the wound and supplies had been ordered by an outpatient compounding pharmacy and our inpatient pharmacy but not arrived yet. Throughout the course of three weeks she had deterioration in her physical status and became bedbound, unable to tolerate PT other than very gentle/limited ROM of legs due to severe pain. She also had progressive decline in her blood pressure over weeks despite discontinuation of her metoprolol and diuretics. Tolerating dialysis was difficult due to pain. Family meetings were held with palliative care and Pauline stated she did not want escalation of care to life support / ICU or CPR but wa nted to continue current treatments including dialysis. Prognosis was extremely poor because of loss of ambulatory status on dialysis, progressive decline despite intensification in care, underlying cancer, wounds which were unchanging. Starting AM of 12/30 her decline accelerated with progressive severe hypotension. She was too painful to tolerate infectious workup other than blood draws. Restarted on empiric broad spectrum antibiotics 12/31 with IVF and albumin boluses stress dose steroids midodrine and empiric anticoagulation with transient improvement in bp but hypotension was recurrent and prevented effective pain control with opioids, also would have prevented ongoing dialysis. Later same evening she decided to transition to comfort measures only and by following morning. Cause of multifactorial shock, unable to pinpoint one specific cause of accelerated terminal decline, sepsis possible but had been on broad spectrum antibiotics more or less continuously cultures negative to date and procalcitonin minimally elevated, unable to complete radiological testing because of intolerable pain at the end, ESRD, metastatic breast cancer, and chronic HFpEF also certainly played a role. Diagnoses treated this admission: bilateral buttock ulcers, unstageable. Treated for proteus and E. coli wound infection pathological fracture of T12 vertebra due to malignant neoplasm metastatic to bone ESRD on hemodialysis with progressive hypotension Metastatic breast cancer to bone Possible liver metastases vs cirrhosis based on CT atrial fibrillation chronic HFpEF leukocytosis acute bilateral hip pain hyponatremia hypercalcemia chronic prednisone hyperkalemia Total Time Total Time Spent Total Time Spent (In Minutes): I personally spent: 55 minutes today on clinical care activities including: reviewing chart notes and vital signs discussion with palliative healthcare educator, bedside RN examining the patient counseling the patient's family writing orders documentation Discharge Plan Discharge Items Patient Disposition: Other Date/Time: 01/02/24 12:20 Coding Level of Care Code 67012 INP/OBS DISCH >30 MIN Diagnoses ESRD (end stage renal disease) N18.6 Hypercalcemia E83.52 Hyperkalemia E87.5 Anemia D64.9 Metastatic cancer to spine C79.51 Sacral ulcer L98.429
== END 2024-01-02 13:37 | disposition expired | DRG 542 ==
LOC: ED 15:37 → EDINP 19:47 → SUATTDRO 19:47 → 2W 12-09 18:25 → 4W 01-01 13:49
DX: M84.58XA Pathological fracture in neoplastic disease, other specified site, initial encounter for fracture; R57.9 Shock, unspecified; Z51.5 Encounter for palliative care; I48.91 Unspecified atrial fibrillation; B96.4 Proteus (mirabilis) (morganii) as the cause of diseases classified elsewhere; G93.40 Encephalopathy, unspecified; M25.552 Pain in left hip; E11.9 Type 2 diabetes mellitus without complications; I13.2 Hypertensive heart and chronic kidney disease with heart failure and with stage 5 chronic kidney disease, or end stage renal disease; Z79.4 Long term (current) use of insulin; Z88.1 Allergy status to other antibiotic agents; K75.81 Nonalcoholic steatohepatitis (NASH); C50.911 Malignant neoplasm of unspecified site of right female breast; B96.20 Unspecified Escherichia coli [E. coli] as the cause of diseases classified elsewhere; E87.20 Acidosis, unspecified; E66.01 Morbid (severe) obesity due to excess calories; C78.7 Secondary malignant neoplasm of liver and intrahepatic bile duct; M25.551 Pain in right hip; E83.52 Hypercalcemia; Z68.42 Body mass index [BMI] 45.0-49.9, adult; R44.3 Hallucinations, unspecified; Z74.01 Bed confinement status; J90 Pleural effusion, not elsewhere classified; Z85.3 Personal history of malignant neoplasm of breast; C78.00 Secondary malignant neoplasm of unspecified lung; Z88.2 Allergy status to sulfonamides; E87.1 Hypo-osmolality and hyponatremia; G82.20 Paraplegia, unspecified; C79.51 Secondary malignant neoplasm of bone; L89.310 Pressure ulcer of right buttock, unstageable; R62.7 Adult failure to thrive; L89.320 Pressure ulcer of left buttock, unstageable; I50.32 Chronic diastolic (congestive) heart failure; E87.5 Hyperkalemia; N18.6 End stage renal disease; Z99.2 Dependence on renal dialysis; Z66 Do not resuscitate; N17.9 Acute kidney failure, unspecified